=== PATIENT | male | born 1960 | race Caucasian/White ===

== ENCOUNTER 2023-03-01 10:42 | Outpatient (OUT) | payer BC, SELFPAY ==
[2023-03-01 11:55] LABS: Anion Gap 12.4; BUN Creatinine Ratio 15.1; Carbon Dioxide 29.6 mmol/L (21.0-32.0); Chloride 98 mmol/L (98-107); Estimated GFR (African America >60 (>=60); Estimated GFR (Non-African Ame >60 (>=60); Glucose 120 mg/dL (74-106); Sodium 136 mmol/L (136-145)
== END 2023-03-01 10:43 | disposition home or self-care (01) ==
LOC: LAB 10:47
PROVIDERS: PCP Physician Assistant; Visit Provider Nurse Practitioner Acute Care
DX: I50.22 Chronic systolic (congestive) heart failure (principal)
CPT/HCPCS: 36415; 80048

== ENCOUNTER 2023-05-29 14:00 | Outpatient (OUT) | payer BC, SELFPAY ==
--- NOTE | 2023-05-29 15:39 | CA_ITS ---
Patient Name: DARIUS DEGROOT MR#: [id number] : 1960 Exam Date: 05/29/2023 Ordering Doctor: DR CAMILA COBB M.D. ECHOCARDIOGRAM REPORT PROCEDURE: CA ECHO DOPPLER COMPLETE INDICATIONS: Syncope and collapse COMPARISON: None. DESCRIPTION: COMPLETE ECHOCARDIOGRAM Real-time transthoracic echocardiography with 2D, M-mode, spectral and color flow Doppler performed. QUALITY: Technical quality was good. LEFT VENTRICLE: Normal chamber size. Thickened septal wall. LV EF: Global left ventricular systolic function is lower normal limits; visually estimated ejection fraction is 50%. Abnormal septal motion; may be related to underlying bundle branch block. DIASTOLIC: Diastolic function is indeterminate. ATRIAL SEPTUM: Inadequately seen. LEFT ATRIUM: Mild dilatation. RIGHT ATRIUM: Mild dilatation. RIGHT VENTRICLE: Normal chamber size. Normal right ventricular systolic function. TRICUSPID VALVE: Normal mobility and thickness. No stenosis with trivial regurgitation. No evidence of pulmonary hypertension. RVSP 16mmHg MITRAL VALVE: Normal mobility and thickness. Mild mitral regurgitation. AORTIC VALVE: Normal trileaflet appearance. No visible sclerosis. Normal leaflet mobility. No evidence of aortic valve stenosis. No aortic regurgitation. AORTIC ROOT: Normal diameter and appearance. PULMONIC VALVE: Normal thickness and mobility. No stenosis. Trivial regurgitation. PERICARDIUM: No evidence of pericardial effusion. IVC: Collapses with inspirations. Normal size. CONCLUSION: 1. Global left ventricular systolic function is low normal limits; visually estimated ejection fraction is 50% 2. The right ventricle is normal in size and systolic function 3. Biatrial enlargement 4. Mild mitral regurgitation Adult Echocardiography Procedure Report Left Ventricle LVEDD (3.7 - 5.6 cm): 5.29 cm LVESD (2.2 - 4.0 cm): 3.78 cm LVIVS thickness (0.6 - 1.2 cm): 1.18 cm LVPW thickness (0.5 - 1.0 cm): 0.91 cm e': 0.08 m/s E - e': 8.10 LVOT Max Gradient: 3.19 mm[Hg] LVOT Area (cm2): 0.89 m/s Peak Velocity (LVOT): 0.89 m/s Mean Velocity (LVOT): 0.63 m/s LVOT Diameter 2.26 cm Left Ventricular Ejection Fraction: 48.66 % Left Atrium LA Volume Index (2D A2C): 35.00 ml/m2 Left Atrium Systolic Dimension: 3.59 cm Mitral Valve MV E to A Ratio: 0.79 Mitral Valve A-Wave Peak Velocity: 0.79 m/s Mitral Valve E-Wave Peak Velocity: 0.62 m/s Right Ventricle RV Internal Diastolic Dimension: 3.46 cm Aorta AO Root Diam: 3.59 cm Ascending Ao Diam: 3.44 cm Aortic Valve AoV Area (Peak Cooper): 2.67 cm2, 2.67 cm2 AoV Area (VTI): 2.90 cm2, 2.90 cm2 Peak Velocity(Antegrade Flow): 1.34 m/s Peak Gradient(Antegrade Flow): 7.18 mm[Hg] Mean Velocity(Antegrade Flow): 0.92 m/s Mean Gradient(Antegrade Flow): 3.97 mm[Hg] Velocity Time Integral: 29.04 cm Tricuspid Valve Peak Velocity (Regurgitant Flow): 1.82 m/s, 1.47 m/s, 1.57 m/s Pulmonic Valve Mean Gradient: 1.89 mm[Hg], 3.00 mm[Hg] Mean Velocity: 0.63 m/s, 0.81 m/s Peak Velocity: 1.07 m/s Peak Gradient: 3.97 mm[Hg], 5.32 mm[Hg] Right Atrium Right Atrium Systolic Pressure: 46.46 ml, 46.46 ml Dictated by: Reese Ovalle M.D. on 05/30/2023 at 09:43 Approved by: Reese Ovalle M.D. on 05/30/2023 at 09:48
== END 2023-05-29 14:01 | disposition home or self-care (01) ==
LOC: CARD 14:00
PROVIDERS: PCP Physician Assistant; Visit Provider Internal Medicine Interventional Cardiology
DX: R55 Syncope and collapse (principal)
CPT/HCPCS: 93306

== ENCOUNTER 2023-06-13 13:34 | Outpatient (OUT) | payer BC, SELFPAY ==
[2023-06-13 14:28] LABS: Basophils Absolute Auto 0.1 10^3/uL (0.0-0.1); Eosinophils Absolute Auto 0.3 10^3/uL (0.0-0.7); Eosinophils Percent Auto 4.6 % (0.9-7.0); Hematocrit 44.8 % (42.0-54.0); Hemoglobin 14.8 g/dL (14.0-18.0); Immature Granulocytes Abs Auto 0.01 10^3/uL (0.00-0.03); Immature Granulocytes Pct Auto 0.1 % (0.0-0.5); Lymphocytes Absolute Auto 1.7 10^3/uL (1.2-3.8); Lymphocytes Percent Auto 23.9 % (20.5-60.0); Mean Corpuscular Hemoglobin 32.7 pg (25.9-34.0); Mean Corpuscular Volume 98.9 fL (80.0-94.0); Mean Platelet Volume 8.7 fL (9.5-13.5); Monocytes Absolute Auto 0.7 10^3/uL (0.3-0.8); Monocytes Percent Auto 10.2 % (1.7-12.0); Neutrophils Absolute Auto 4.2 10^3/uL (1.4-6.5); Neutrophils Percent Auto 60.2 % (43.0-75.0); Platelet Count 297 10^3/uL (150-450); Red Blood Count 4.53 10^6/uL (4.70-6.10); Red Cell Distribution Width 11.7 % (11.0-15.0)
[2023-06-13 15:52] LABS: Alanine Aminotransferase 30 U/L (16-63); Albumin Globulin Ratio 1.4; Albumin Level 4.6 g/dL (3.4-5.0); Alkaline Phosphatase 50 U/L (46-116); Anion Gap 13.4; Aspartate Amino Transferase 23 U/L (15-37); BUN Creatinine Ratio 14.8; Bilirubin Total 0.4 mg/dL (0.2-1.0); Calcium 9.2 mg/dL (8.5-10.1); Carbon Dioxide 29.9 mmol/L (21.0-32.0); Chloride 100 mmol/L (98-107); Estimated GFR (African America >60 (>=60); Estimated GFR (Non-African Ame >60 (>=60); Globulin 3.3 g/dL; Glucose 95 mg/dL (74-106); Potassium 4.3 mmol/L (3.5-5.1); Sodium 139 mmol/L (136-145); Total Protein 7.9 g/dL (6.4-8.2)
== END 2023-06-13 13:35 | disposition home or self-care (01) ==
LOC: LAB 13:36
PROVIDERS: PCP Physician Assistant; Visit Provider Internal Medicine Interventional Cardiology
DX: R55 Syncope and collapse (principal)
CPT/HCPCS: 36415; 80053; 85025

== ENCOUNTER 2024-01-17 10:47 | Outpatient (OUT) | payer BC, SELFPAY ==
[2024-01-17 11:03] LABS: Basophils Absolute Auto 0.1 10^3/uL (0.0-0.1); Basophils Percent Auto 0.9 % (0.2-2.0); Eosinophils Absolute Auto 0.3 10^3/uL (0.0-0.7); Eosinophils Percent Auto 4.5 % (0.9-7.0); Hematocrit 43.4 % (42.0-54.0); Hemoglobin 14.9 g/dL (14.0-18.0); Immature Granulocytes Abs Auto 0.02 10^3/uL (0.00-0.03); Immature Granulocytes Pct Auto 0.4 % (0.0-0.5); Lymphocytes Absolute Auto 1.8 10^3/uL (1.2-3.8); Lymphocytes Percent Auto 32.1 % (20.5-60.0); Mean Corpuscular HGB Conc 34.3 g/dL (29.9-35.2); Mean Corpuscular Hemoglobin 32.5 pg (25.9-34.0); Mean Corpuscular Volume 94.8 fL (80.0-94.0); Monocytes Absolute Auto 0.7 10^3/uL (0.3-0.8); Monocytes Percent Auto 12.5 % (1.7-12.0); Neutrophils Absolute Auto 2.8 10^3/uL (1.4-6.5); Neutrophils Percent Auto 49.6 % (43.0-75.0); Platelet Count 250 10^3/uL (150-450); Red Blood Count 4.58 10^6/uL (4.70-6.10); Red Cell Distribution Width 11.1 % (11.0-15.0); White Blood Count 5.6 10^3/uL (4.0-11.0)
--- OUTSIDE RECORDS SUMMARY | 2024-01-17 11:04 | XMS_ITS | CCD ---
Author Organization [facility] Care Team Providers Care Rd Manager Name Role Phone PHYSICIAN, DEFAULT Admitting Unavailable PHYSICIAN, DEFAULT Attending Unavailable PHYSICIAN, DEFAULT Admitting Unavailable PHYSICIAN, DEFAULT Attending Unavailable UNKNOWN, PROVIDER Admitting Unavailable UNKNOWN, PROVIDER Attending Unavailable MARIA D FLORES Referring Unavailable MARIA D FLORES Primary Care Unavailable PHYSICIAN, DEFAULT Admitting Unavailable PHYSICIAN, DEFAULT Attending Unavailable Maria D Petersen Primary Care Provider Maria D Petersen Primary Care Provider Maria D PETERSEN Primary Care Physician CAMILA Petersen Primary Care Provider DO Barber Snow Jr Attending Provider Barber Snow Jr Attending Unavailable Barber Snow Jr Admitting Unavailable Maria D Petersen Primary Care Unavailable NORA OLIVA Attending Unavailable MARIA D PETERSEN Primary Care Unavailable NORA OLIVA Admitting Unavailable MARIA D PETERSEN Primary Care Unavailable NORA OLIVA Admitting Unavailable NORA OLIVA Consulting Unavailable NORA OLIVA Attending Unavailable Maria D Petersen PA-C Primary Care Provider Francois PAYAN Attending Unavailable Rosaura Moseley Referring Unavailable Francois PAYAN Attending Unavailable Maria D PETERSEN Attending Unavailable Maria D PETERSEN Referring Unavailable Maria D PETERSEN Admitting Unavailable KOSTA RAVI Attending Unavailable CAMILA COBB Attending Unavailable CAMILA COBB Attending Unavailable KOSTA RAVI Attending Unavailable ARTURO TEJADA Referring Unavailable ARTURO TEJADA [facility] ARTURO TEJADA Attending Unavailable [facility] Unavailabl e [facility] Unavailabl e BEATRIZ FIGUEROA Attending Unavailable BEATRIZ FIGUEROA Referring Unavailable KARIME V, SHEREE Referring Unavailable [facility] Unavailabl e KARIME V, SHEREE Referring Un[facility] KARMIE V, SHEREE Referring Unavailable KARIME V, SHEREE Admitting Unavailable KARIME V, SHEREE Attending Unavailable [facility] Unavailabl e KARIME V, SHEREE Referring Unavailable KARIME V, SHEREE Admitting Unavailable KARIME V, SHEREE Attending Unavailable [facility] Unavailabl e KARIME V, SHEREE Referring Unavailable [facility] Unavailabl e KARIME V, SHEREE Referring Unavailable [facility] Unavailabl e KARIME V, SHEREE Attending Unavailable [facility] Unavailabl e BARBER SNOW Attending Unavailable BARBER SNOW Referring Unavailable [facility] Unavailabl e NICOLE RYAN Attending Unavaila ble [facility] Unavailabl e KARIME V, SHEREE Attending Unavailable [facility] UnavailARTURO Zuniga Attending Unavailable NICOLAMARIA D Attending Unavailable ARTURO DODGE Attending Unavailable Allergies Allergy Classification Reported Allergen(s) Allergy Type Date of Onset Reaction(s) Facility (2 sources) atorvastatin; Translations: [ATORVASTATIN] Drug Allergy 06-14-2022 Unknown [facility] Repository Medications Current Medications Medication Drug Class(es) Dates Sig (Normalized) Sig (Original) benoxinate hydrochloride 4 mg/ml / fluorescein sodium 3 mg/ml ophthalmic solution (2 sources) Diagnostic Dye Start: 06-01-2023 End: 06-02-2023 fluorescein-benoxi jhon 0.3-0.4 % 1 Drop (FLURESS) Start: 12-15-2022 End: 12-15-2022 fluorescein-benoxinate 0.25- 0.4 % 1 Drop (FLURESS) diazePAM 5 mg oral tablet (1 source) Benzodiazepine Start: 07-25-2022 End: 08-24-2022 diazePAM (VALIUM) 5 mg tablet Indications: Chronic right-sided low back pain with right-sided sciatica , Radiculopathy of lumbar region Take 1 tablet 1 hour before test. Can take 1 tablet 30 minutes before test if necessary. If still not comfortable then can take a half tablet immediately prior to or during the test. 3 tablet 0 07/25/2022 08/24/2022 Active Comment on above: Take 1 tablet 1 hour before test. Can take 1 tablet 30 minutes before test if necessary. If still not comfortable then can take a half tablet immediately prior to or during the test. Furosemide (19 sources) Loop Diuretic Start: 03-13-2023 FUROSEMIDE 20 MG TABS FUROSEMIDE 20 MG TABS Start Date: 03/13/23 Status: Ordered Start: 03-01-2017 furosemide (LA SIX ORAL) Take 20 mg by mouth. 0 03/01/2017 Active Comment on above: Take 20 mg by mouth. omeprazole 20 mg oral tablet (20 sources) Proton Pump Inhibitor Start: 03-01-2017 End: 12-29-2022 take 20 mg by mouth twice daily Prilosec 20 mg, Oral, BID, Refills(s) 0, Control of stomach acid Start Date: 03/01/17 Status: Ordered take 2 capsules by mouth once da sanjana omeprazole (PRILOSEC) 20 mg capsule omeprazole 20 mg capsule,delayed release TAKE 2 CAPSULES BY MOUTH EVERY DAY 0 Active Comment on above: Take 20 mg by mouth twice daily. omeprazole 20 mg cap jay,delayed release TAKE 2 CAPSULES BY MOUTH EVERY DAY phenylephrine hydrochloride 25 mg/ml ophthalmic solution (2 sources) alpha-1 Adrenergic Agonist Start: 06-01-2023 End: 06-02-2023 PHENYLephrine 2.5 % 1 Drop (AK-DILATE, CODEY-SYNEPHRINE) Start: 12-15-2022 End: 12-15-2022 PHENYLephrine 2.5 % 1 Drop ( AK-DILATE, CODEY-SYNEPHRINE) rosuvastatin 20 mg oral capsule (18 sources) HMG-CoA Reductase Inhibitor Start: 03-01-2017 take 20 mg by mouth once daily rosuvastatin 20 mg, Oral, Daily, Refills(s) 0, High cholesterol Start Date: 03/01/17 Status: Ordered take 1 tablet by mouth once filipe y rosuvastatin (CRESTOR) 40 mg tablet Take 40 mg by mouth once daily. 0 Active Comment on above: Take 40 mg by mouth once daily. spironolactone 25 mg oral tablet (5 sources) Aldosterone Antagonist Start: 03-13-2023 spironolactone 25 mg Tab Refills(s) 0 Start Date: 03/13/23 Status: Ordered Start: 01-30-2023 spironolactone (ALDACTONE) 12.5 mg tab tropicamide 10 mg/ml ophthalmic solution (2 sources) Anticholinergic Start: 06-01-2023 End: 06-02-2023 tropicamide 1 % 1 Drop (MYDRIACYL) Start: 12-15-2022 End: 12-15-2022 tropicamide 1 % 1 Drop (MYDR IACYL) Completed/Discontinued Medications Medication Drug Class(es) Dates Sig (Normalized) Sig (Original) acetaminophen 325 mg / HYDROcodone bitartrate 5 mg oral tablet (9 sources) Opioid Agonist End: 12-29-2022 take 1 tablet by mouth every six hours as needed HYDROcodone-acetam inophen (NORCO) 5-325 mg per tablet Take 1 tablet by mouth every 6 hours as needed. 0 12/29/2022 Discontinued (Course of therapy completed) Comment on above: Take 1 tablet by ivan th every 6 hours as needed. aspirin 81 mg delayed release oral tablet (9 sources) Platelet Aggregation Inhibitor, Nonsteroidal Anti-inflammatory Drug Start: 03-01-2017 take 1 tablet by mouth once daily aspirin, enteric coated (ASPIRIN, ENTERIC COATED) 81 mg EC tablet Take 81 mg by mouth once daily. 0 03/01/2017 Active Start: 03-01-2017 take 81 mg by mouth once daily aspirin 81 mg, Oral, Daily, Refills(s) 0, Blood Thinner Start Date: 03/01/17 Status: Ordered Comment on above: Take 81 mg by mouth once daily. aspirin 1000 mg / caffeine 150 mg oral powder (9 sources) Platelet Aggregation Inhibitor, Nonsteroidal Anti-inflammatory Drug, Central Nervous System Stimulant, Methylxanthine Start: 017 End: 023 aspirin-caffeine 1,000-150 mg pwpk Take 81 mg by mouth. 0 03/01/2017 12/29/2022 Discontinued (Course of therapy completed) Comment on above: Take 81 mg by mouth. cyclobenzaprine hydrochloride 10 mg oral tablet (9 sources) Muscle Relaxant End: take 1 tablet by mouth every eight hours as needed cyclobenzaprine (FLEXERIL) 10 mg tablet Take 10 mg by mouth three times daily as needed. 0 12/29/2022 Discontinued (Course of therapy completed) Comment on above: Take 10 mg by mouth three times daily as needed. 24 hr desvenlafaxine succinate 50 mg extended release oral tablet (9 sources) Serotonin and Norepinephrine Reuptake Inhibitor End: take 1 tablet by mouth once daily, then take 1 tablet by mouth every twenty-four hours desvenlafaxine ER (PRISTIQ) 50 mg 24 hr tablet Take 50 mg by mouth once daily. 0 12/29/2022 Discontinued (Course of therapy completed) Comment on above: Take 50 mg by mouth once daily. dexamethasone 0.001 mg/mg / neomycin 0.0035 mg/mg / polymyxin b 10 unt/mg ophthalmic ointment (1 source) Aminoglycoside Antibacterial, Polymyxin-class Antibacterial, Corticosteroid Start: 024 neomycin/polymyxin b/dexametha(MAXITROL 3.5 MG/G-10,000 UNIT/G-0.1 % EYE OINTMENT) Apply to lids/lashes Both eyes at bedtime until gone 3.5 g 0 10/25/2023 Active Comment on above: Apply to lids/lashes Both eyes at bedtime until gone ezetimibe 10 mg oral tablet (9 sources) Dietary Cholesterol Absorption Inhibitor End: take 1 tablet by mouth once daily ezetimibe (ZETIA) 10 mg tablet Take 10 mg by mouth once daily. 0 12/29/2022 Discontinued (Course of therapy completed) Comment on above: Take 10 mg by mouth once daily. fluticasone propionate 0.05 mg/actuat metered dose nasal spray (11 sources) Corticosteroid fluticasone (MEÑO NASE) 50 mcg/actuation nasal spray Use 1 [place] in each nostril as needed. 0 Active Comment on above: Use 1 [place] in each nostril as needed. gabapentin 300 mg oral capsule (8 sources) Anti-epileptic Agent Start: 022 End: 023 gabapentin (NEURONTIN) 300 mg capsule Indications: Acute right-sided low back pain with right-sided sciatica , Lumbosacral radiculitis Take one capsule at bedtime for 3-5 days, then one in the morning and one at night for 3-5 days. Then increase to one capsule three times daily if tolerating well. 90 capsule 1 05/18/2022 12/29/2022 Discontinued (Course of therapy completed) Comment on above: Take one capsule at bedtime for 3-5 days, then one in the morning and one at night for 3-5 days. Then increase to one capsule three times daily if tolerating well. gemfibrozil 600 mg oral tablet (18 sources) Peroxisome Proliferator Receptor alpha Agonist Start: 017 gemfibrozil (LOPID) 600 mg tablet Take 600 mg by mouth. 0 03/01/2017 Active Comment on above: Take 600 mg by mouth . ketorolac tromethamine 5 mg/ml ophthalmic solution (4 sources) Nonsteroidal Anti-inflammatory Drug, Cyclooxygenase Inhibitor Start: 023 keTORolac (ACULAR) 0.5 % ophthalmic solution USE DIRECTED BY PHYSICIAN, IN OPERATIVE EYE, BEGINNING ONE DAY AFTER SURGERY 5 mL 0 03/07/2023 Active Start: 01-13-2023 keTORolac (ACU LAR) 0.5 % ophthalmic solution 1 drop in the operative eye 4 times daily for 10 days after surgery, then taper as directed. 5 mL 0 01/13/2023 Active Start: 01-10-2023 End: 01-13-2023 keTORolac (ACULAR) 0.5 % oph thalmic solution USE DIRECTED BY PHYSICIAN, IN OPERATIVE EYE, BEGINNING ONE DAY AFTER SURGERY 5 mL 0 01/10/2023 01/13/2023 Discontinued Comment on above: 1 drop in the operat shanti eye 4 times daily for 10 days after surgery, then taper as directed. USE DIRECTED BY Chaz DE LA CRUZ, IN OPERATIVE EYE, BEGINNING ONE DAY AFTER SURGERY lisinopril 10 mg oral tablet (18 sources) Angiotensin Converting Enzyme Inhibitor Start: 03-01-20 lisinopril (ZESTRIL, PRINIVIL) 10 mg tablet Take 10 mg by mouth. 0 03/01/2017 Active Comment on above: Take 10 mg by mouth. methylPREDNISolone (9 sources) Corticosteroid Start: 05-18-20 End: 12-30-19 methylPREDNISolone (MEDROL DOSE-PACK) 4 mg Dose-Pack Indications: Acute right-sided low back pain with right-sided sciatica , Lumbosacral radiculitis As Instructed per package 21 tablet 0 05/18/2022 12/29/2022 Discontinued (Course of therapy completed) Start: 05-18-2022 methylPREDNISo lone (MEDROL DOSE-PACK) 4 mg Dose-Pack Indications: Acute right-sided low back pain with right-sided sciatica , Lumbosacral radiculitis As Instructed per package 21 tablet 0 05/18/2022 Active Comment on above: As Instructed per selwyn fuentes 24 hr metoprolol succinate 50 mg extended release oral tablet (18 sources) beta-Adrenergic Franc Start: 03-01-2017 metoprolol succinate ER (TOPROL XL) 50 mg 24 hr tablet q 24 HR. 0 03/01/2017 Active Start: 03-01-2017 take 1 tablet by [facility] once daily Metoprolol succinate 50 mg ER Tablet 50 mg, Oral, Daily, Refills(s) 0, High blood pressure Start Date: 03/01/17 Status: Ordered Comment on above: q 24 HR. prednisoLONE acetate 10 mg/ml ophthalmic suspension (4 sources) Corticosteroid Start: 03-07-2023 prednisoLONE acetate (PRED FORTE) 1 % ophthalmic suspension USE DIRECTED BY PHYSICIAN, IN OPERATIVE EYE, BEGINNING ONE DAY AFTER SURGERY 5 mL 0 03/07/2023 Active Start: 01-13-2023 prednisoLONE a cetate (PRED FORTE) 1 % ophthalmic suspension 1 drop in the operative eye 4 times daily for 10 days after surgery, then taper as directed. 5 mL 0 01/13/2023 Active Start: 01-10-2023 End: 01-13-2023 prednisoLONE acetate (PRED F ORTE) 1 % ophthalmic suspension USE DIRECTED BY PHYSICIAN, IN OPERATIVE EYE, BEGINNING ONE DAY AFTER SURGERY 5 mL 0 01/10/2023 01/13/2023 Discontinued Comment on above: 1 drop in the operat shanti eye 4 times daily for 10 days after surgery, then taper as directed. USE DIRECTED BY Chaz DE LA CRUZ, IN OPERATIVE EYE, BEGINNING ONE DAY AFTER SURGERY Problems Active Problems Problem Classification Problem Date Documented Date Episodic/Chronic Anxiety disorders (2 sources) Anxiety 09-27-2013 Chronic Asthma (17 sources) Asthma; Translations: [Unspecified asthma, uncomplicated] 11-07-2014 Chronic Calculus of urinary tract (16 sources) Kidney stone; Translations: [Calculus of kidney] 11-07-2014 Episodic Cataract (7 sources) Bilateral senile combined form cataracts of eyes; Translations: [Combined forms of age-related cataract, bilateral] Onset: 3 Chronic Congestive heart failure; nonhypertensive (15 sources) Heart failure; Translations: [Chronic systolic (congestive) heart failure] Onset: 9 Chronic Coronary atherosclerosis and other heart disease (18 sources) 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; Translations: [Generalized ischemic myocardial dysfunction] Onset: 9 Chronic Coronary atherosclerosis and other heart disease (2 sources) Presence of coronary angioplasty implant and graft; Translations: [Presence of coronary angioplasty implant and graft] Onset: 3 Episodic Disorders of lipid metabolism (20 sources) Hyperlipidemia; Translations: [Hyperlipidemia, unspecified] Onset: 4 03-18-2014 Chronic Diverticulosis and diverticulitis (16 sources) Diverticular disease; Translations: [Diverticulosis of intestine, part unspecified, without perforation or abscess without bleeding] 11-07-2014 Chronic Esophageal disorders (1 source) Gastroesophageal reflux disease 03-13-2023 Chronic Essential hypertension (11 sources) Essential hypertension; Translations: [Essential (primary) hypertension] Onset: 3 Chronic Fracture of lower limb (16 sources) Fracture of ankle; Translations: [Other fracture of unspecified lower leg, initial encounter for closed fracture] 11-07-2014 Episodic Hypertension with complications and secondary hypertension (1 source) Hypertensive heart disease with heart failure; Translations: [HYPERTENSIVE HEART DISEASE WITH HEART FAILURE] Onset: 9 Chronic Inflammation; infection of eye (except that caused by tuberculosis or sexually transmitteddisease) (4 sources) Keratoconjunctivitis sicca; Translations: [Keratoconjunctivitis sicca, not specified as Sjogren's, bilateral] Onset: 3 04-20-2023 Chronic Osteoarthritis (16 sources) Osteoarthritis; Translations: [Unspecified osteoarthritis, unspecified site] 11-07-2014 Chronic Other diseases of kidney and ureters (1 source) Acquired renal cyst without neoplastic change; Translations: [Cyst of kidney, acquired] Onset: 3 Episodic Other diseases of kidney and ureters (1 source) Cyst of kidney 03-13-2023 Episodic Other eye disorders (1 source) H/O: L cataract extraction; Translations: [Cataract extraction status, left eye] 03-08-2023 Episodic Other eye disorders (1 source) Meibomian gland dysfunction of bilateral eyes; Translations: [Meibomian gland dysfunction right eye, upper and lower eyelids] 10-25-2023 Episodic Other eye disorders (1 source) Pinguecula of left eye; Translations: [Pinguecula, left eye] 10-25-2023 Episodic Other eye disorders (1 source) Pterygium of right eye; Translations: [Unspecified pterygium of right eye] 10-25-2023 Episodic Other eye disorders (1 source) History of zrulkjs-rsdvulgc-kvflhy (YAG) laser capsulotomy of lens; Translations: [Cataract extraction status, left eye] 10-25-2023 Episodic Other liver diseases (16 sources) Elevated liver enzymes level; Translations: [Abnormal levels of other serum enzymes] 11-07-2014 Episodic Other nervous system disorders (1 source) Other chronic pain; Translations: [Chronic right-sided low back pain with right-sided sciatica] Onset: 3 Chronic Other screening for suspected conditions (not mental disorders or infectious disease) (2 sources) Abnormal findings on diagnostic imaging of heart and coronary circulation; Translations: [Encounter for screening for malignant neoplasm of prostate] Onset: 9 Episodic Residual codes; unclassified (17 sources) Obstructive sleep apnea syndrome; Translations: [Obstructive sleep apnea (adult) (pediatric)] 07-12-2021 Chronic Syncope (2 sources) Syncope and collapse; Translations: [Syncope and collapse] Onset: 3 Episodic Unclassified (1 source) DX Onset: 9 Unclassified (1 source) Patient encounter status 03-13-2023 Past or Other Problems Problem Classification Problem Date Documented Da te Episodic/Chronic Blindness and vision defects (4 sources) Bilateral myopia of eyes; Translations: [Myopia, bilateral] Onset: 03-08-2023 Episodic Inflammation; infection of eye (except that caused by tuberculosis or sexually transmitteddisease) (3 sources) Superficial keratitis of right eye; Translations: [Unspecified superficial keratitis, right eye] Onset: 04-12-2023 04-12-2023 Episodic Other fractures (16 sources) Fracture of transverse process of lumbar vertebra; Translations: [Unspecified fracture of unspecified lumbar vertebra, initial encounter for closed fracture] Onset: 11-07-2014 11-07-2014 Episodic Spondylosis; intervertebral disc disorders; other back problems (20 sources) Acute back pain with sciatica; Translations: [Lumbago with sciatica, right side] Onset: 09-16-2022 Episodic Superficial injury; contusion (1 source) Injury of conjunctiva and corneal abrasion without foreign body, right eye, initial encounter; Translations: [Abrasion of right cornea, initial encounter] Onset: 04-12-2023 Episodic Unclassified (2 sources) Cholesterol 11-16-2010 Results Test Name Value Interpretation Reference Range Facility Office Visiton 06-27-2023 Follow-up visit [id number] Jb Thacker 1960 [facility] Provider Department Center 06/27/2023 CAMILA KANG UGO [facility] Family History Problem Relation Age of Onset Leukemia Mother Diabetes Father Heart attack Father Family Status - Relation Status Age at Mother Father Level of Service:96302 [place] OFFICE/OUTPATIENT ESTABLISHED LOW MDM 20-29 MIN Normal [facility] 36on 05-23-2023 37 called back and she was made aware to stop lisinopril. Normal [facility] Office Visiton 05-19-2023 Follow-up visit [id number] Jb Thacker 1960 [facility] Provider Department Center 05/19/2023 CAMILA KANG UGO [facility] Family History Problem Relation Age of Onset Leukemia Mother Diabetes Father Heart attack Father Family Status - Relation Status Age at Mother Father Level of Service:12784 [place] OFFICE/OUTPATIENT ESTABLISHED MOD MDM 30-39 MIN Normal [facility] Lab Reportson 03-15-2023 Lab Reports [id number]: 127 Normal [facility] Lab Reportson 03-14-2023 Lab Reports [id number]: 127 Normal [facility] Lab Reports [id number]: 127 Normal [facility] Physician Referralon 023 Physician Referral [id number] [id number]: 127 Normal [facility] RAD - MRI Reporton 3 RAD - MRI Report [id number]: 127 Normal [facility] Ambulatory Visit Summaryon 0 03-13-2023 Ambulatory Visit Summary DARIUS THACKER :1960 Visit Date:03/13/2023 Ambulatory Visit Instructions Your Diagnosis Renal cyst Prostate cancer screening Tests Performed Urnls Dip Stick Auto w/o Microscopy POC 15992 US Renal -- Results Pending -- Please visit your patient portal for your results or contact your primary care physician. Your Care Team Attending Physician - ORA MILLER, Francois George Primary Care Physician - Maria D PETERSEN PA-C Referring Physician - Rosaura Moseley MD This Is Your Medications List Contact prescribing physician if questions or concerns Misc Prescription (FUROSEMIDE 20 MG TABS) aspirin furosemide (Lasix) gemfibrozil lisinopril metoprolol (Metoprolol succinate 50 mg ER Tablet) omeprazole (Prilosec) rosuvastatin spironolactone (spironolactone 25 mg Tab) Procedures Performed Back, Cataracts, Insertion of coronary artery stent. Discharge Vitals Height 178 cm Height 70 in Weight 82.5 kg Weight 181.5 lb BMI 26.04 What to do next You Need to Schedule the Following Appointments Follow Up with ORA MILLER, Francois George, RAQUEL When: In 1 year Comments: Renal US Where: [facility] [address] , [place] [phone] Medications What How Much When Instructions Unchanged aspirin 81 Milligram By Mouth Every day Contact prescribing physician if questions or concerns Unchanged furosemide (Lasix) 20 Milligram By Mouth Every other day Contact prescribing physician if questions or concerns Unchanged gemfibrozil 600 Milligram By Mouth 2 times a day Contact prescribing physician if questions or concerns Unchanged lisinopril 10 Milligram By Mouth Every day Contact prescribing physician if questions or concerns Unchanged metoprolol (Metoprolol succinate 50 mg ER Tablet) 50 Milligram By Mouth Every day Contact prescribing physician if questions or concerns Unchanged Misc Prescription (FUROSEMIDE 20 MG TABS) 0 Contact prescribing physician if questions or concerns Unchanged omeprazole (Prilosec) 20 Milligram By Mouth 2 times a day Contact prescribing physician if questions or concerns Unchanged rosuvastatin 20 Milligram By Mouth Every day Contact prescribing physician if questions or concerns Unchanged spironolactone (spironolactone 25 mg Tab) Contact prescribing physician if questions or concerns Test Results Urnls Dip Stick Auto w/o Microscopy POC 46662 (03/13/2023) Bilirubin Urine Dipstick - Negative Blood Urine Dipstick - Negative Glucose Urine Dipstick - Negative Ketones Urine Dipstick - Negative Leukocytes Urine Dipstick - Negative Nitrite Urine Dipstick - Negative Protein Urine Dipstick - Negative Specific [place]y Urine Dipstick - 1.015 Urine Appearance Urine Dipstick - Clear Urine Color Urine Dipstick - Yellow Urobilinogen Urine Dipstick - Normal 0.2-1 EU/dl pH Urine Dipstick - 7.5 Allergies No Known Allergies Problems Ongoing - Any problem that you are currently receiving treatment for. GERD (gastroesophageal reflux disease) Hypercholesterolemia Hypertension Prostate cancer screening Renal cyst Historical - Any problem that you are no longer receiving treatment for. Anxiety Cholesterol Education Materials Renal Mass A renal mass is an abnormal growth in the kidney. It may be found while performing an MRI, CT scan, or ultrasound to evaluate other problems of the abdomen. A renal mass that is cancerous (malignant) may grow or spread quickly. Others are not cancerous (benign). Renal masses include: ? Tumors. These may be malignant or benign. ? The most common type of kidney cancer in adults is renal cell carcinoma. In children, the most common type of kidney cancer is Wilms tumor. ? The most common benign tumors of the kidney include renal adenomas, oncocytomas, and angiomyolipoma (AML). ? Cysts. These are fluid-filled sacs that form on or in the kidney. What are the causes? Certain types of cancers, infections, or injuries can cause a renal mass. It is not always known what causes a cyst to develop in or on the kidney. What are the signs or symptoms? Often, a renal mass does not cause any signs or symptoms; most kidney cysts do not cause symptoms. How is this diagnosed? Your health care provider may recommend tests to diagnose the cause of your renal mass. These tests may be done if a renal mass is found: ? Physical exam. ? Blood tests. ? Urine tests. ? Imaging tests, such as ultrasound, CT scan, or MRI. ? Biopsy. This is a small sample that is removed from the renal mass and tested in a lab. The exact tests and how often they are done will depend on: ? The size and appearance of the renal mass. ? Risk factors or medical conditions that increase your risk for problems. ? Any symptoms associated with the renal mass, or concerns that you have about it. Tests and physical exams may be done once, or they may be do (more content not included)... [facility] Patient Educationon 03-13-20 23 Patient Education Urology Renal Mass A renal mass is an abnormal growth in the kidney. It may be found while performing an MRI, CT scan, or ultrasound to evaluate other problems of the abdomen. A renal mass that is cancerous (malignant) may grow or spread quickly. Others are not cancerous (benign). Renal masses include: ? Tumors. These may be malignant or benign. ? The most common type of kidney cancer in adults is renal cell carcinoma. In children, the most common type of kidney cancer is Wilms tumor. ? The most common benign tumors of the kidney include renal adenomas, oncocytomas, and angiomyolipoma (AML). ? Cysts. These are fluid-filled sacs that form on or in the kidney. What are the causes? Certain types of cancers, infections, or injuries can cause a renal mass. It is not always known what causes a cyst to develop in or on the kidney. What are the signs or symptoms? Often, a renal mass does not cause any signs or symptoms; most kidney cysts do not cause symptoms. How is this diagnosed? Your health care provider may recommend tests to diagnose the cause of your renal mass. These tests may be done if a renal mass is found: ? Physical exam. ? Blood tests. ? Urine tests. ? Imaging tests, such as ultrasound, CT scan, or MRI. ? Biopsy. This is a small sample that is removed from the renal mass and tested in a lab. The exact tests and how often they are done will depend on: ? The size and appearance of the renal mass. ? Risk factors or medical conditions that increase your risk for problems. ? Any symptoms associated with the renal mass, or concerns that you have about it. Tests and physical exams may be done once, or they may be done regularly for a period of time. Tests and exams that are done regularly will help monitor whether the mass is growing and beginning to cause problems. How is this treated? Treatment is not always needed for this condition. Your health care provider may recommend careful monitoring and regular tests and exams. Treatment will depend on the cause of the mass. Treatment for a cancerous renal mass may include surgical removal, chemotherapy, radiation, or immunotherapy. Most kidney cysts do not need to be treated. Follow these instructions at home: What you need to do at home will depend on the cause of the mass. Follow the instructions that your health care provider gives to you. In general: ? Take gntz-ycj-roqtjzc and prescription medicines only as told by your health care provider. ? If you were prescribed an antibiotic medicine, take it as told by your health care provider. Do not stop taking the antibiotic even if you start to feel better. ? Follow any restrictions that are given to you by your health care provider. ? Keep all follow-up visits. This is important. ? You may need to see your health care provider once or twice a year to have CT scans and ultrasounds. These tests will show if your renal mass has changed or grown. Contact a health care provider if you: ? Have pain in your side or back (flank pain). ? Have a fever. ? Feel full soon after eating. ? Have pain or swelling in the abdomen. ? Lose weight. Get help right away if: ? Your pain gets worse. ? There is blood in your urine. ? You cannot urinate. ? You have chest pain. ? You have trouble breathing. These symptoms may represent a serious problem that is an emergency. Do not wait to see if the symptoms will go away. Get medical help right away. Call your local emergency services (911 in the [place] Summary ? A renal mass is an abnormal growth in the kidney. It may be cancerous (malignant) and grow or spread quickly, or it may not be cancerous (benign). Renal masses often do not have any signs or symptoms. ? Renal masses may be found while performing an MRI, CT scan, or ultrasound for other problems of the abdomen. ? Your health care provider may recommend that you have tests to diagnose the cause of your renal mass. These may include a physical exam, blood tests, urine tests, imaging, or a biopsy. ? Treatment is not always needed for this condition. Careful monitoring may be recommended. This information is not intended to replace advice given to you by your health care provider. Make sure you discuss any questions you have with your health care provider. Document Revised: 12/28/2020 Document Reviewed: 12/28/2020 [employer] Patient Education ? 2022 [employer]. [facility] Reminderson 03-13-2023 Reminders - From: Sunshine Treviño To: [place] - Recalls Payan; Sent: 03/13/2023 16:04:39 EDT Show up: 01/15/2024 16:04:00 EDT Subject: Renal US Due Date/Time: 02/05/2024 16:04:00 EDT Reminder/Recall [place] [facility] [place] prior to 02/2024 appt. Please call to sched patient. [facility] Orders Onlyon 03-10-2023 Orders Only [id number] Jb Thacker 1960 [facility] Provider Department Center 03/10/2023 [id number] [facility] Family History Problem Relation Age of Onset Leukemia Mother Diabetes Father Heart attack Father Family Status - Relation Status Age at Mother Father [facility] ANES POSTPROC EVALon 023 ANES POSTPROC EVAL HNO ID: [id number] Author: Johnathan Melton II, DO Service: Anesthesiology Author Type: Anesthesiologist Type: Anesthesia Postprocedure Evaluation Filed: 03/08/2023 1:09 PM Note Text: POST ANESTHESIA EVALUATION NOTE : 1960 Procedure Summary Date: 03/08/23 Room / Location: [place] [id number] / [facility] Anesthesia Start: 1200 Anesthesia Stop: 1221 Procedures: PHACOEMULSIFICATION CATARACT IMPLANT INTRAOCULAR LENS W/O ENDOSCOPIC CYCLOPHOTOCOAGULATION (Right: Eye) OPHTHALMIC BIOMETRY BY PARTIAL COHERENCE INTERFEROMETRY W/INTRAOCULAR LENS POWER CALCULATION (Right: Eye) Diagnosis: Combined forms of age-related cataract of both eyes Myopia with astigmatism and presbyopia, bilateral (Combined forms of age-related cataract of both eyes [H25.813]) (Myopia with astigmatism and presbyopia, bilateral [H52.13, H52.203, H52.4]) Surgeons: Sheree Schaffer V, MD Responsible Provider: Johnathan Melton II, DO Anesthesia Type: MAC ASA Status: 3 Anesthesia Type: MAC Last Vitals Vitals Value Taken Time BP 115/80 03/08/23 1230 Temp 36.6 ?C (97.9 ?F) 03/08/23 1220 Pulse 67 03/08/23 1230 Resp 16 03/08/23 1230 SpO2 96 % 03/08/23 1230 Post Anesthesia Patient Status Patient Evaluation: PACU. PACU/ICU Patient Condition: stable. Neurological Status: aware and responsive. Pulmonary Status: breathing comfortably on room air Airway Control: returned to baseline unsupported. Cardiovascular Status: stable. Pain Management: clinically adequate Postoperative Hydration: acceptable. Intraoperative Events: no significant anesthesia events Post Operative Nausea/Vomiting Status: no significant post operative nausea or vomiting Recommendation: continue current plan of care. Anesthesia Observations No Documentation SIGNATURE: Johnathan Melton II, DO PATIENT NAME: Darius Thacker DATE: March 08, 2023 TIME: 1:09 PM CSN: [id number] [facility] ANES PRE-OPon 03-08-2023 ANES PRE-OP HNO ID: [id number] Author: Johnathan Melton II, DO Service: Anesthesiology Author Type: Anesthesiologist Type: Anesthesia Preprocedure Evaluation Filed: 03/08/2023 11:31 AM Note Text: ANESTHESIOLOGY DAY OF SURGERY NOTE : 1960 Procedure Information Date/Time: 03/08/23 1200 Procedures: PHACOEMULSIFICATION CATARACT IMPLANT INTRAOCULAR LENS W/O ENDOSCOPIC CYCLOPHOTOCOAGULATION (Right: Eye) OPHTHALMIC BIOMETRY BY PARTIAL COHERENCE INTERFEROMETRY W/INTRAOCULAR LENS POWER CALCULATION (Right: Eye) Location: [address] Surgeons: Sheree Schaffer V, MD Estimated body mass index is 25.83 kg/m? as calculated from the following: Height as of 03/01/23: 177.8 cm (5' 10 ). Weight as of 03/01/23: 81.6 kg (180 lb). Most recent hematocrit and potassium results: No results found for this basename: HCT,HEMATOCRIT,K,POTASSI UM Relevant Problems ANESTHESIA (+) JOSE (obstructive sleep apnea) CARDIO (+) Essential (primary) hypertension -RENAL (+) Kidney stones PULMONARY (+) Asthma (+) JOSE (obstructive sleep apnea) I - PHYSICAL EVALUATION AIRWAY Patient intubated: No. Tracheostomy tube not present Mallampati: II. TM distance: >3 FB. Neck ROM: full ROM without neurological symptoms. Mouth opening: adequate. Short neck: no. Thick neck: no DENTAL Dental findings: teeth intact. Additional exam findings: yes. CARDIOVASCULAR Rhythm: regular Rate: normal PULMONARY Breath sounds clear to auscultation. II - ANESTHESIA PLAN ASA Score: 3 Anesthetic Plan: MAC The patient is not a current smoker. NPO Status: adequate Beta Franc Monitoring Plan Monitoring plan: standard ASA. Post Procedure Analgesic Plan Postoperative analgesic plan: parenteral or oral opioids. Informed Consent Anesthetic risks, benefits, alternatives, personnel and consent discussed: yes. Patient / Responsible Constitution Party agrees to proceed: yes Patient / Surrogate agrees to blood products: Yes No vitals data found for the desired time range. No current facility-administered medications on file as of 03/08/2023. Outpatient Medications as of 03/08/2023 Medication Sig - metoprolol succinate ER (TOPROL XL) 50 mg 24 hr tablet q 24 HR. - omeprazole (PRILOSEC) 20 mg capsule omeprazole 20 mg capsule,delayed release TAKE 2 CAPSULES BY MOUTH EVERY DAY - prednisoLONE acetate (PRED FORTE) 1 % ophthalmic suspension USE DIRECTED BY PHYSICIAN, IN OPERATIVE EYE, BEGINNING ONE DAY AFTER SURGERY - keTORolac (ACULAR) 0.5 % ophthalmic solution USE DIRECTED BY PHYSICIAN, IN OPERATIVE EYE, BEGINNING ONE DAY AFTER SURGERY - keTORolac (ACULAR) 0.5 % ophthalmic solution 1 drop in the operative eye 4 times daily for 10 days after surgery, then taper as directed. - prednisoLONE acetate (PRED FORTE) 1 % ophthalmic suspension 1 drop in the operative eye 4 times daily for 10 days after surgery, then taper as directed. - aspirin, enteric coated (ASPIRIN, ENTERIC COATED) 81 mg EC tablet Take 81 mg by mouth once daily. - gemfibrozil (LOPID) 600 mg tablet Take 600 mg by mouth. - lisinopril (ZESTRIL, PRINIVIL) 10 mg tablet Take 10 mg by mouth. - rosuvastatin (CRESTOR) 40 mg tablet Take 40 mg by mouth once daily. - furosemide (LASIX ORAL) Take 20 mg by mouth. I have interviewed and examined the patient. I have reviewed the medical record and/or the pre-anesthesia evaluation, pertinent labs, and test results. This contains updated information obtained within 48 hours of Surgery/Procedure. SIGNATURE: Johnathan Melton II, DO PATIENT NAME: Darius Thacker DATE: March 08, 2023 TIME: 11:29 AM CSN: [id number] [facility] OPERATIVE NOon 03-08-2023 OPERATIVE NO HNO ID: [id number] Author: Sheree Schaffer V, MD Service: Ophthalmology Author Type: Physician Type: Operative Report Filed: 03/08/2023 12:18 PM Note Text: OPERATIVE REPORT DATE OF SERVICE: March 08, 2023 PRIMARY SURGEON: Sheree Schaffer M.D. INJECTION MOLDER: None Procedure(s) (LRB): PHACOEMULSIFICATION CATARACT IMPLANT INTRAOCULAR LENS W/O ENDOSCOPIC CYCLOPHOTOCOAGULATION (Right) OPHTHALMIC BIOMETRY BY PARTIAL COHERENCE INTERFEROMETRY W/INTRAOCULAR LENS POWER CALCULATION (Right) ANESTHESIA: Topical with monitored anesthesia care. PREOPERATIVE DIAGNOSIS: Combined cataract POSTOPERATIVE DIAGNOSIS: Combined cataract, presbyopia OPERATIVE INDICATIONS: BAT 20/50 OPERATIVE PROCEDURE: The patient was admitted to the operating suite where an IV and BP, EKG, and O2 monitors were placed. Nasal oxygen was administered. The operative eye was confirmed, marked, then pretreated with 2.5% tropicamide and 1% phenylephrine eye drops. With the patient in the supine position, topical lidocaine gel 2% was placed in a small ribbon in the lower cul-de-sac. The patient was then prepped and draped in the usual sterile fashion for intraocular surgery. After a time-out confirming correct patient, correct eye, correct operation, presence of allergies, and correct implant, an eyelid speculum was placed. Under the operating microscope a beveled clear corneal incision was created temporally with a Elem blade then a 2.4 mm keratome. The anterior chamber was reformed with Viscoat, after which the anterior capsule was opened centrally. Using the Utrata forceps a continuous curvilinear capsulorrhexis of approximately 5.5 mm round was created. Gentle hydrodissection was accomplished using preservative-free lidocaine on a 27-gauge cannula. Using the Leonardo phacoemulsification unit with the Kelman curved tip, the anterior chamber was entered and the nucleus was removed while it was in the bag. The epinuclear ring was dissected into several segments, then removed using the phacoemulsification unit set to the desired aspiration flow rate and ultrasound parameters. It was necessary to use chopper forceps at various intervals to aid in the fragmentation of the dense lens material. Great care was taken not to violate the posterior capsule. The silicone-tipped I and A instrument was used to remove the cortex and buff off any remaining cataractous material from the posterior capsule. The capsular bag was then reformed with Discovisc and the following Intraocular lens implant Implant Name Type Inv. Item Serial No. Pickle Cutter Lot No. LRB No. Used Action Model No. CLAREON ASPHERIC UV ABSORBING IOL +20.5D Intraocular Lens [id number] Nutraspace Right 1 Implanted [id number] was inserted through the lips of the wound into the capsular bag. Using the I and A instrument, the Discovisc was removed from the anterior chamber and capsular bag, and the implant was centered. Cefuroxime 1mg in 0.1 mL normal saline was introduced into the anterior chamber through the clear corneal incision using a 30 gauge cannula. The wound was checked and found to be watertight. At the end of the procedure, the cornea was clear, the anterior chamber was deep and clear, the pupil was round, the implant was centered within the capsular bag, and the posterior capsule was intact. The eyelid speculum was removed and prednisolone acetate 1% and timolol 0.5% eye drops were administered. A shield was affixed over the eye and the patient was sent to the recovery room, leaving the operating room in excellent condition. ESTIMATED BLOOD LOSS: <1mL SPECIMEN: None FINDINGS: Age-related cataract COMPLICATIONS: None Incision/Procedure Start Time: 12:10 PM Incision Close/Procedure End Time: 12:16 PM - Comanage with Dr Breen; [facility] POD #1 Sheree SCHAFFER MD [facility] HISTORY PHYSICALon HISTORY PHYSICAL HNO ID: [id number] Author: Christi Hernandez APRN.PROMOTIONS DIRECTOR Service: ? Author Type: Nurse Practitioner Type: HANDP Filed: 03/01/2023 2:24 PM Note Text: HISTORY AND PHYSICAL EXAMINATION SERVICE DATE: 03/01/2023 SERVICE TIME: 1:44 PM PRIMARY CARE PHYSICIAN: Maria D Petersen PA-C REASON FOR VISIT: Darius Thacker is a 62 year old male who is scheduled for PHACOEMULSIFICATION CATARACT IMPLANT INTRAOCULAR LENS W/O ENDOSCOPIC CYCLOPHOTOCOAGULATION - Right with Sheree Schaffer V, MD on 03/08/2023 BILATERAL at the request of Dr. Sheree Schaffer V for consultation. My final recommendation will be communicated back to the requesting physician by way of shared medical record or letter. The patient has the following: ACTIVE PROBLEM LIST Hyperlipidemia Diverticulosis Fracture, Ankle Jose (Obstructive Sleep Apnea) Elevated Liver Enzymes Hypertriglyceridemia Osteoarthritis Asthma Kidney Stones Lumbar Transverse Process Fracture (Hcc) Lumbosacral Neuritis Essential (Primary) Hypertension Generalized Ischemic Myocardial Dysfunction Heart Failure (Hcc) Subjective CHIEF COMPLAINT: Impaired Vision HPI: Patient is a 62 year old male presenting to pre-anesthesia consultation. Patient complains of decreased visual acuity, blurred vision, and difficulty with night driving for > 6 months. Found to have bilateral cataracts. Patient denies pain. No relieving factors, patient has opted for surgical treatment of cataracts. PAST MEDICAL HISTORY Diagnosis Date Asthma Diverticulosis Elevated liver enzymes Fracture, ankle left Hyperlipidemia Hypertension Hypertriglyceridemia Kidney stones JOSE (obstructive sleep apnea) CPAP Osteoarthritis PAST SURGICAL HISTORY Procedure Laterality Date BACK SURGERY HX 07/17/2005 herniated disc by Tamia BUNDY PTCA STENT COLONOSCOPY 07/17/2012 FAMILY HISTORY Problem Relation Age of Onset Cancer Mother other (myocardial infarction [Other]) Father Age 32 other (CABG [Other]) Father age 55 Diabetes Father other (high blood pressure [Other]) Father Arthritis Father other (myocardial infarction [Other]) Paternal Aunt Age Cataract Maternal Grandmother Anesthesia Problems No Family History SOCIAL HISTORY: Social History Tobacco Use Smoking status: Former Packs/day: 1.00 Years: 15.00 Additional pack years: 0.00 Total pack years: 15.00 Types: Cigarettes Quit date: 2001 Years since quittin.6 Smokeless tobacco: Never Substance Use Topics Alcohol use: Not Currently Drug use: No MEDICATIONS: Prior to Admission medications as of 03/01/23 1408 Medication Sig Last Dose Taking spironolactone (ALDACTONE) 12.5 mg tab Yes keTORolac (ACULAR) 0.5 % ophthalmic solution 1 drop in the operative eye 4 times daily for 10 days after surgery, then taper as directed. Yes prednisoLONE acetate (PRED FORTE) 1 % ophthalmic suspension 1 drop in the operative eye 4 times daily for 10 days after surgery, then taper as directed. Yes aspirin, enteric coated (ASPIRIN, ENTERIC COATED) 81 mg EC tablet Take 81 mg by mouth once daily. Yes gemfibrozil (LOPID) 600 mg tablet Take 600 mg by mouth. Yes lisinopril (ZESTRIL, PRINIVIL) 10 mg tablet Take 10 mg by mouth. Yes rosuvastatin (CRESTOR) 40 mg tablet Take 40 mg by mouth once daily. Yes furosemide (LASIX ORAL) Take 20 mg by mouth. Yes metoprolol succinate ER (TOPROL XL) 50 mg 24 hr tablet q 24 HR. Yes omeprazole (PRILOSEC) 20 mg capsule omeprazole 20 mg capsule,delayed release TAKE 2 CAPSULES BY MOUTH EVERY DAY Yes No medication comments found. CURRENT ALLERGIES: ALLERGIES No Known Allergies Covid Immunization Dates COVID-19 VACCINE (Series Information) Completed 05/31/2022 Imm Admin: COVID-19 vaccine, age 12+ yr, bivalent (MODERNA) 05/11/2021 Imm Admin: COVID-19 original vaccine, full dose, monovalent (MODERNA) 11/12/2020 Imm Admin: COVID-19 original vaccine, full dose, monovalent (MODERNA) 10/19/2020 Imm Admin: COVID-19 original vaccine, full dose, monovalent (MODERNA) REVIEW OF SYSTEMS: PAIN ASSESSMENT: Pain Pain Level: 0 General: No weight loss, malaise or fevers. Neuro: No history of TIA's, stroke, MANAGER LEASING tumor, impaired sensorium, hemiplegia, paraplegia or quadraplegia. No neurological symptoms or problems. Respiratory: No history of current cough or dyspnea, or pneumonia in the past 6 weeks. No history of respiratory/pulmonary symptoms or problems. +JOSE Cardiovascular: Negative for Recent VT, Angina, Chest Pain, DVT/PE + CHF + HTN + HLD + CAD GI: No history of GI symptoms or problems. No history of esophageal varices, recent ascites, or ETOH greater than 2 drinks per day. : No history of dysuria, frequency or incontinence,, stones or chronic kidney disease Endocrine: No history of diabetes. Has not taken steroids within the past 30 days. No history of endocrinological symptoms or problems. Hematology: No history of bleeding (more content not included)... [facility] 36on 02-02-2023 36 I tried to get his e cho approved but his insurance is requiring a peer to peer. If you'd like to complete this, you'll need to call [facility] at [phone]. Use patient's name, , and ) to pull up the case. Let me know the outcome please. Thanks. [facility] Office Visiton 01-30-2023 Follow-up visit [id number] Jb Thacker 1960 M Date Provider Department Center 01/30/2023 [id number] RAVI [facility] Family History Problem Relation Age of Onset Leukemia Mother Diabetes Father Heart attack Father Family Status - Relation Status Age at Mother Father Level of Service:83840 [place] OFFICE/OUTPATIENT ESTABLISHED LOW MDM 20-29 MIN Reason for Visit and Comments: Follow-up [111249] - 2 month follow up [facility] ANES POSTPROC EVALon 023 ANES POSTPROC EVAL HNO ID: [id number] Author: Vipul García DO Service: Anesthesiology Author Type: Anesthesiologist Type: Anesthesia Postprocedure Evaluation Filed: 01/11/2023 3:55 PM Note Text: POST ANESTHESIA EVALUATION NOTE : 1960 Procedure Summary Date: 01/11/23 Room / Location: [address] Anesthesia Start: 1325 Anesthesia Stop: 1349 Procedures: PHACOEMULSIFICATION CATARACT IMPLANT INTRAOCULAR LENS W/O ENDOSCOPIC CYCLOPHOTOCOAGULATION (Left: Eye) OPHTHALMIC BIOMETRY BY PARTIAL COHERENCE INTERFEROMETRY W/INTRAOCULAR LENS POWER CALCULATION (Left: Eye) Diagnosis: Combined forms of age-related cataract of both eyes (Combined forms of age-related cataract of both eyes [H25.813]) Surgeons: Sheree Schaffer V, MD Responsible Provider: Vipul García DO Anesthesia Type: MAC ASA Status: 3 Anesthesia Type: MAC Last Vitals Vitals Value Taken Time BP 113/76 01/11/23 1358 Temp 36.1 ?C (97 ?F) 01/11/23 1348 Pulse 68 01/11/23 1358 Resp 16 01/11/23 1358 SpO2 97 % 01/11/23 1358 Post Anesthesia Patient Status Patient Evaluation: PACU. PACU/ICU Patient Condition: stable. Anticipated Disposition: phase 2 then home. Neurological Status: aware and responsive. Pulmonary Status: breathing comfortably on room air Airway Control: returned to baseline unsupported. Cardiovascular Status: stable. Pain Management: clinically adequate - multimodal analgesia pain management approach Postoperative Hydration: acceptable. Intraoperative Events: no significant anesthesia events Post Operative Nausea/Vomiting Status: no significant post operative nausea or vomiting Recommendation: continue current plan of care. Anesthesia Observations No Documentation SIGNATURE: Vipul García DO PATIENT NAME: Darius Thacker DATE: January 11, 2023 TIME: 3:55 PM CSN: [id number] [facility] ANES PRE-OPon 01-11-2023 ANES PRE-OP HNO ID: [id number] Author: Vipul García DO Service: Anesthesiology Author Type: Anesthesiologist Type: Anesthesia Preprocedure Evaluation Filed: 01/11/2023 1:11 PM Note Text: ANESTHESIOLOGY DAY OF SURGERY NOTE : 1960 Procedure Information Date/Time: 01/11/23 1155 Procedures: PHACOEMULSIFICATION CATARACT IMPLANT INTRAOCULAR LENS W/O ENDOSCOPIC CYCLOPHOTOCOAGULATION (Left: Eye) OPHTHALMIC BIOMETRY BY PARTIAL COHERENCE INTERFEROMETRY W/INTRAOCULAR LENS POWER CALCULATION (Left: Eye) Location: [address] Surgeons: Sheree Schaffer V, MD Estimated body mass index is 25.54 kg/m? as calculated from the following: Height as of 12/29/22: 177.8 cm (5' 10 ). Weight as of 12/29/22: 80.7 kg (178 lb). Most recent hematocrit and potassium results: No results found for this basename: HCT,HEMATOCRIT,K,POTASSI UM Relevant Problems ANESTHESIA (+) JOSE (obstructive sleep apnea) CARDIO (+) Essential (primary) hypertension -RENAL (+) Kidney stones PULMONARY (+) Asthma (+) JOSE (obstructive sleep apnea) I - PHYSICAL EVALUATION AIRWAY Patient intubated: No. Tracheostomy tube not present Mallampati: IV. TM distance: <3 FB. Neck ROM: full ROM without neurological symptoms. Mouth opening: adequate. Short neck: yes. Thick neck: yes DENTAL Dental findings: teeth intact. Additional exam findings: yes. Other findings: Reduced ejection fraction per Patient. 2/2 ischemic cardiomyopathy. Stent placed in LAD years ago. ASA daily. Follows cardiology. METS >10.. II - ANESTHESIA PLAN ASA Score: 3 Anesthetic Plan: MAC The patient is not a current smoker. NPO Status: adequate Beta Franc Monitoring Plan Monitoring plan: standard ASA. Post Procedure Analgesic Plan Postoperative analgesic plan: multimodal analgesia. Informed Consent Anesthetic risks, benefits, alternatives, personnel and consent discussed: yes. Patient / Responsible Constitution Party agrees to proceed: yes Patient / Surrogate agrees to blood products: blood products not planned Significant changes in the patient condition since the History and Physical, not otherwise documented in primary service progress note: no. Potential Anesthesia issues that may suggest increased risk of complications or contraindication to planned procedure: none. Vitals Value Taken Time BP 135/79 01/11/23 1245 Pulse 59 01/11/23 1245 Resp 16 01/11/23 1245 Temp 36.2 ?C (97.2 ?F) 01/11/23 1245 SpO2 97 % 01/11/23 1245 Facility-Administered Medications as of 01/11/2023 Medication Dose Route Frequency - NaCl 0.9% iv infusion 30 mL/hr INTRAVENOUS CONTINUOUS - [COMPLETED] lidocaine HCl (PF) 40 mg/mL 2 mg injection (XYLOCAINE) 0.05 mL LEFT EYE EVERY 5 MINUTES X 3 DOSES - [COMPLETED] PHENYLephrine 2.5 % 1 Drop (AK-DILATE, CODEY-SYNEPHRINE) 1 Drop LEFT EYE EVERY 5 MINUTES X 3 DOSES - [COMPLETED] tropicamide 1 % 1 Drop (MYDRIACYL) 1 Drop LEFT EYE EVERY 5 MINUTES X 3 DOSES - cyclopentolate 1 % 1 Drop (CYCLOGYL) 1 Drop LEFT EYE Pre-Op PRN - [COMPLETED] keTORolac 0.5 % 1 Drop (ACULAR) 1 Drop LEFT EYE q 5 MIN - [COMPLETED] Povidone-Iodine 5 % 30 mL ophth soln (BETADINE) 30 mL LEFT EYE ONCE - [COMPLETED] balanced salts 15 mL (BSS) 15 mL LEFT EYE ONCE Outpatient Medications as of 01/11/2023 Medication Sig - aspirin, enteric coated (ASPIRIN, ENTERIC COATED) 81 mg EC tablet Take 81 mg by mouth once daily. - gemfibrozil (LOPID) 600 mg tablet Take 600 mg by mouth. - lisinopril (ZESTRIL, PRINIVIL) 10 mg tablet Take 10 mg by mouth. - rosuvastatin (CRESTOR) 40 mg tablet Take 40 mg by mouth once daily. - metoprolol succinate ER (TOPROL XL) 50 mg 24 hr tablet q 24 HR. - omeprazole (PRILOSEC) 20 mg capsule omeprazole 20 mg capsule,delayed release TAKE 2 CAPSULES BY MOUTH EVERY DAY - prednisoLONE acetate (PRED FORTE) 1 % ophthalmic suspension USE DIRECTED BY PHYSICIAN, IN OPERATIVE EYE, BEGINNING ONE DAY AFTER SURGERY - keTORolac (ACULAR) 0.5 % ophthalmic solution USE DIRECTED BY PHYSICIAN, IN OPERATIVE EYE, BEGINNING ONE DAY AFTER SURGERY - furosemide (LASIX ORAL) Take 20 mg by mouth. - fluticasone (FLONASE) 50 mcg/actuation nasal spray Use 1 [place] in each nostril as needed. I have interviewed and examined the patient. I have reviewed the medical record and/or the pre-anesthesia evaluation, pertinent labs, and test results. This contains updated information obtained within 48 hours of Surgery/Procedure. SIGNATURE: Vipul García DO PATIENT NAME: Darius Thacker DATE: January 11, 2023 TIME: 1:08 PM CSN: [id number] [facility] OPERATIVE NOon 01-11-2023 OPERATIVE NO HNO ID: [id number] Author: Sheree Schaffer V, MD Service: Ophthalmology Author Type: Physician Type: Operative Report Filed: 01/11/2023 1:46 PM Note Text: OPERATIVE REPORT DATE: January 11, 2023 PRIMARY SURGEON: Sheree Schaffer MD INJECTION MOLDER: None OPERATION: Phacoemulsification of cataract, insertion of posterior chamber intraocular lens implant, left eye - COMPLEX PREOPERATIVE DIAGNOSIS: Age-related mature cataract POSTOPERATIVE DIAGNOSIS: Age-related mature cataract OPERATIVE INDICATIONS: Best corrected visual acuity 20/150 ANESTHESIA: Topical with monitored anesthesia care OPERATIVE PROCEDURE: The patient was admitted to the operating suite where an IV and BP, EKG, and O2 monitors were placed. Nasal oxygen was administered. The operative eye was confirmed, marked, then pretreated with 2.5% tropicamide, 1% phenylephrine, and ciprofloxacin eye drops. With the patient in the supine position, topical lidocaine gel 2% was placed in a small ribbon in the lower cul-de-sac. The patient was then prepped and draped in the usual sterile fashion for intraocular surgery. After a time-out confirming correct patient, correct eye, correct operation, presence of allergies, and correct implant, an eyelid speculum was placed. Under the operating microscope a beveled clear corneal incision was created temporally with a Elem blade then a 2.4 mm keratome. The patient was observed to have a dense mature cataract obscuring the red reflex, thus requiring Trypan Blue to afford better visualization of the anterior capsule. Trypan Blue was introduced into the anterior chamber, then replaced with Viscoat. The anterior capsule was opened centrally, and using the Utrata forceps a continuous curvilinear capsulorrhexis of approximately 5.5 mm round was created. Gentle hydrodissection was accomplished using preservative-free lidocaine on a 27-gauge canula. Using the Leonardo phacoemulsification unit with the Kelman curved tip, the anterior chamber was entered and the nucleus was removed while it was in the bag. The epinuclear ring was dissected into several segments, then removed using the phacoemulsification unit set to the desired aspiration flow rate and ultrasound parameters. Great care was taken not to violate the posterior capsule. The silicone-tipped I and A instrument was used to remove the cortex and buff off any remaining cataractous material from the posterior capsule. The capsular bag was then reformed with Discovisc and an Leonardo CC60WF 21.0 diopter intraocular lens was inserted through the lips of the wound into the capsular bag. Using the I and A instrument, the Discovisc was removed from the anterior chamber and capsular bag, and the implant was centered. Cefuroxime 1mg in normal saline was introduced into the anterior chamber through the clear corneal incision using a 30 gauge cannula. The wound was checked and found to be watertight. At the end of the procedure, the cornea was clear, the anterior chamber was deep and clear, the pupil was round, the implant was centered within the capsular bag, and the posterior capsule was intact. The eyelid speculum was removed and timolol and Maxitrol eye drops were administered. A shield was affixed over the eye and the patient was sent to the recovery room, leaving the operating room in excellent condition. ESTIMATED BLOOD LOSS: <1mL SPECIMEN: None COMPLICATIONS: None Incision/Procedure Start Time: 1:31 PM Incision Close/Procedure End Time: 1:43 PM - [facility]1 Sheree SCHAFFER MD [facility] HISTORY PHYSICALon HISTORY PHYSICAL HNO ID: [id number] Author: Sheeba Webster APRN.PROMOTIONS DIRECTOR Service: ? Author Type: Nurse Practitioner Type: HANDP Filed: 12/29/2022 2:54 PM Note Text: HISTORY AND PHYSICAL EXAMINATION SERVICE DATE: 12/29/2022 SERVICE TIME: 1:36 PM PRIMARY CARE PHYSICIAN: SELWYN Bhatt REASON FOR VISIT: Darius Thacker is a 62 year old male who is scheduled for PHACOEMULSIFICATION CATARACT IMPLANT INTRAOCULAR LENS W/O ENDOSCOPIC CYCLOPHOTOCOAGULATION left at the request of Dr. Sheree Schaffer V for consultation. My final recommendation will be communicated back to the requesting physician by way of shared medical record or letter. The patient has the following: ACTIVE PROBLEM LIST Hyperlipidemia Diverticulosis Fracture, Ankle Jose (Obstructive Sleep Apnea) Elevated Liver Enzymes Hypertriglyceridemia Osteoarthritis Asthma Kidney Stones Lumbar Transverse Process Fracture (Hcc) Lumbosacral Neuritis Essential (Primary) Hypertension Generalized Ischemic Myocardial Dysfunction Subjective CHIEF COMPLAINT: Left eye change of vision HPI: 62 year old male with left eye change of vision that has been ongoing for 6 months. Patient states that he has blurred Vision,decreased vision,difficulty with driving,difficulty with reading,difficulty with watching television,floaters,glar e. Patient denies any alleviating factors. Patient denies any pain today PAST MEDICAL HISTORY Diagnosis Date Asthma Diverticulosis Elevated liver enzymes Fracture, ankle left Hyperlipidemia Hypertriglyceridemia Kidney stones JOSE (obstructive sleep apnea) CPAP Osteoarthritis PAST SURGICAL HISTORY Procedure Laterality Date BACK SURGERY HX 2005 herniated disc by Tamia Veronica COLONOSCOPY 2013 FAMILY HISTORY Problem Relation Age of Onset other (myocardial infarction [Other]) Father Age 32 other (CABG [Other]) Father age 55 Diabetes Father other (high blood pressure [Other]) Father Arthritis Father Cancer Mother Cataract Maternal Grandmother other (myocardial infarction [Other]) Paternal Aunt Age SOCIAL HISTORY: Social History Tobacco Use Smoking status: Former Packs/day: 1.00 Years: 15.00 Pack years: 15.00 Types: Cigarettes Quit date: 2001 Years since quittin.4 Smokeless tobacco: Never Substance Use Topics Alcohol use: Not Currently Comment: 5 drinks per week, sometimes more Drug use: No MEDICATIONS: Prior to Admission medications as of 12/29/22 1334 Medication Sig Last Dose Taking aspirin, enteric coated (ECOTRIN LOW STRENGTH) 81 mg EC tablet Take 81 mg by mouth once daily. Yes gemfibrozil (LOPID) 600 mg tablet Take 600 mg by mouth. Yes lisinopril (ZESTRIL, PRINIVIL) 10 mg tablet Take 10 mg by mouth. Yes rosuvastatin (CRESTOR) 40 mg tablet Take 40 mg by mouth once daily. Yes furosemide (LASIX ORAL) Take 20 mg by mouth. Yes metoprolol succinate ER (TOPROL XL) 50 mg 24 hr tablet q 24 HR. Yes omeprazole (PRILOSEC) 20 mg capsule omeprazole 20 mg capsule,delayed release TAKE 2 CAPSULES BY MOUTH EVERY DAY Yes fluticasone (FLONASE) 50 mcg/actuation nasal spray Use 1 [place] in each nostril as needed. Yes No medication comments found. CURRENT ALLERGIES: ALLERGIES No Known Allergies COVID VACCINATION STATUS: Fully vaccinated REVIEW OF SYSTEMS: PAIN ASSESSMENT: General: No weight loss, malaise or fevers. Neuro: No history of TIA's, stroke, MANAGER LEASING tumor, impaired sensorium, hemiplegia, paraplegia or quadraplegia. No neurological symptoms or problems. Positive [place] bilateral hearing aids Respiratory: Positive for Tobacco Use quit in 2001 JOSE compliant with CPAP , Negative for No history of current cough or dyspnea, or pneumonia in the past 6 weeks. Cardiovascular: Positive for: HLD, Hypertension History of CAD s/p PTCA in 2014 Heart Failure on Lasix EF 40% Denies rest pain, gangrene or revascularization/amputa tion for PVD GI: Positive for GERD, Negative for Esophageal varices < 6 months, Hepatitis, Liver disease, Pancreatitis, Colon cancer, Rectal cancer : No history of dysuria, frequency or incontinence,, stones or chronic kidney disease, No difficulty urinating, nocturia > 1 time per night or hematuria Endocrine: No history of diabetes. Has not taken steroids within the past 30 days. No history of endocrinological symptoms or problems. Hematology: Chronic anti-coagulation / platelet meds (Aspirin) Oncology: No history of CA metastasis, chemo within 30 days, or radiotherapy within 90 days. Has not lost 10% of body wt in 6 months. No history of oncological symptoms or problems. Psych: No history of psychiatric symptoms or problems. Musculoskeletal: Joint pain Skin: Negative for lesions, rash and itching. Objective PHYSICAL EXAM: VITALS: BP 115/75 Pulse 57 Temp (Src) 97.2 (Temporal Artery) Resp 16 Ht 5' 10 (1.78m) Wt 178 lb (80.7kg) SpO2 100% BMI 25.54 kg/(m2). General: Alert and oriented, No acute distr (more content not included)... [facility] DARIUS THACKER ([id number]) 1960 M Date Time Provider Department 12/16/22 SHEREE SCHAFFER V OPHTLGio During your visit today, we recorded the following information about you: Kateryna Mclaughlin [facility] 12/16/2022 11:34 AM Signed Called and spoke to patient and scheduled pre op appointments for 12/29. I advised him that we will contact Dr Breen' office and set up the post op appointments (1 day and 1 week). Asked if it was okay that we send him a Matthew Kenney Cuisinehart message with those appointments. He confirmed mychart was okay. Add on 01/11 per AH - call to schedule Received: Yesterday [address] [facility] CHART MADE AND FILED IN PERSIA PATIENT SCHEDULED FOR SX OS ONLY 01/11/23 - ADD PER AH MYC OK: --NO CALL TO SCHEDULE PH #: VERIFIED SR/CASE MSG DONE: YES NOTES: POST OPS W/: DR STEFF Schaffer V, MD P Ln Opht Surg Powder Monkey Left eye only Comanage with Dr Breen The documentation for this note was completed by Lucie Osei, COA acting as a scribe for Sheree SCHAFFER MD. 12/15/2022 12:36 PM. ASSESSMENT / PLAN: 1. Combined cataract, both eyes - Offered cataract extraction by phacoemulsification and intraocular lens implant with Dr. Schaffer, left eye only at this time - Aim: -1.50 Left eye [plano Right eye, when/if elects Cataract extraction OD] - Flomax/alpha-franc? No - Toric candidate: No - PanOptix candidate: No - Anesthesia: Topical with MAC - Contact lens use No - History of LASIK/PRK/RK No - Discussed initiate twice daily eyelid scrubs pending U/S biometry and surgery - Comanage with Dr Breen; [facility] POD #1 Allergies As of Date: 12/16/2022 (No Known Allergies) Date Reviewed: 12/15/2022 Reviewed by: Sheree Schaffer V, MD - Fully Assessed Reason for Visit: Schedule Surgery [1330] Prescriptions as of 12/20/2022 - aspirin-caffeine 1,000-150 mg pwpk Take 81 mg by mouth. - gemfibrozil (LOPID) 600 mg tablet Take 600 mg by mouth. - lisinopril (ZESTRIL, PRINIVIL) 10 mg tablet Take 10 mg by mouth. - omeprazole magnesium (PRILOSEC ORAL) Take 20 mg by mouth twice daily. - rosuvastatin (CRESTOR) 40 mg tablet Take 40 mg by mouth once daily. - furosemide (LASIX ORAL) Take 20 mg by mouth. - metoprolol succinate ER (TOPROL XL) 50 mg 24 hr tablet q 24 HR. - omeprazole (PRILOSEC) 20 mg capsule omeprazole 20 mg capsule,delayed release TAKE 2 CAPSULES BY MOUTH EVERY DAY - methylPREDNISolone (MEDROL DOSE-PACK) 4 mg Dose-Pack As Instructed per package - gabapentin (NEURONTIN) 300 mg capsule Take one capsule at bedtime for 3-5 days, then one in the morning and one at night for 3-5 days. Then increase to one capsule three times daily if tolerating well. - HYDROcodone-acetaminophe n (NORCO) 5-325 mg per tablet Take 1 tablet by mouth every 6 hours as needed. - cyclobenzaprine (FLEXERIL) 10 mg tablet Take 10 mg by mouth three times daily as needed. - fluticasone (FLONASE) 50 mcg/actuation nasal spray Use 1 [place] in each nostril as needed. - desvenlafaxine ER (PRISTIQ) 50 mg 24 hr tablet Take 50 mg by mouth once daily. - ezetimibe (ZETIA) 10 mg tablet Take 10 mg by mouth once daily. Problem List As Of Date 12/16/2022 Noted Resolved Hyperlipidemia [E78.5] 03/18/2014 Diverticulosis [K57.90] Fracture, ankle [S82.899A] JOSE (obstructive sleep apnea) [G47.33] Elevated liver enzymes [R74.8] Hypertriglyceridemia [E78.1] Osteoarthritis [M19.90] Asthma [J45.909] Kidney stones [N20.0] Lumbar transverse process fracture (HCC) [S32.0*11/07/2014 Lumbosacral neuritis [M54.17] 10/04/2022 Encounter Status:Closed by KATERYNA JAMESON on 12/16/22 Normal [facility] Office Visiton 11-22-2022 Follow-up visit [id number] Jb Thacker 1960 M Provider Department Center 11/22/2022 [id number] RAVI UGO [place] Family History Problem Relation Age of Onset Leukemia Mother Diabetes Father Heart attack Father Family Status - Relation Status Age at Mother Father Level of Service:98543 [place] OFFICE/OUTPATIENT ESTABLISHED MOD MDM 30-39 MIN Reason for Visit and Comments: Coronary Artery Disease [187] Hypertension [511433] Hyperlipidemia [182] Congestive Heart Failure [127] [facility] 36on 11-11-2022 36 Please let him know his labs showed normal blood counts, normal kidney/liver function and cholesterol levels looked good. Follow-up as scheduled. Thanks! Normal [facility] Telephoneon 11-10-2022 Telephone [id number] Jb Thacker 1960 Date Provider Department Center 11/10/2022 NORA DUVALL Claudio [place]. No family history on file Normal [facility] CBC AUTO DIFFon 11-08-2022 BASO # 0.0 103/ul Normal 0.0-0.1 [facility] Comment on above: Performed By: #### C BC #### [facility] [address] [address] [address] Lenard Maloney Basophils/100 WBC (Bld) 0.7 % Normal 0.2-2.0 [facility] Comment on above: Performed By: #### C BC #### [facility] [address] [place] [address] Dr. Lenard Maloney EO # 0.2 103/ul Normal 0.0-0.7 [facility] Comment on above: Performed By: #### C BC #### [facility] [address] [address] [address] Lenard Maloney Eosinophils/100 WBC (Bld) 2.8 % Normal 0.9-7.0 [facility] Comment on above: Performed By: #### C BC #### [facility] [address] [place] [address] Dr. Lenard Maloney Erythrocyte distribution width (RBC) [Ratio] 11.6 % Normal 11.0-15.0 [facility] Comment on above: Performed By: #### C BC #### [facility] [address] [address] [address] Lenard Maloney Hematocrit (Bld) [Volume fraction] 41.1 % Critically low 42.0-54.0 [facility] Comment on above: Performed By: #### C BC #### [facility] [address] [place] [address] Dr. Lenard Maloney Hemoglobin (Bld) [Mass/Vol] 14.3 g/dL Normal 14.0-18.0 [facility] Comment on above: Performed By: #### C BC #### [facility] [address] [place] [address] Dr. Lenard Maloney IG # 0.01 10e3/ul Normal 0.00-0.03 [facility] Comment on above: Performed By: #### C BC #### [facility] [address] [place] [address] Dr. Lenard Maloney IG % 0.2 % Normal 0.0-0.5 [facility] Comment on above: Performed By: #### C BC #### [facility] [address] [place] [address] Dr. Lenard Maloney LYMPH # 2.1 103/ul Normal 1.2-3.8 [facility] Comment on above: Performed By: #### C BC #### [facility] [address] [place] [address] Dr. Lenard Maloney Lymphocytes/100 WBC (Bld) 34.5 % Normal 20.5-60.0 [facility] Comment on above: Performed By: #### C BC #### [facility] [address] [place] [address] Dr. Lenard Maloney MANUAL DIFF REQ NO Normal [facility] Comment on above: Performed By: #### C BC #### [facility] [address] [place] [address] Dr. Lenard Maloney MCH (RBC) [Entitic mass] 33.3 pg Normal 25.9-34.0 [facility] Comment on above: Performed By: #### C BC #### [facility] [address] [place] [address] Dr. Lenard Maloney MCHC (RBC) [Mass/Vol] 34.8 g/dL Normal 29.9-35.2 [facility] Comment on above: Performed By: #### C BC #### [facility] [address] [place] [address] Dr. Lenard Maloney MCV (RBC) [Entitic vol] 95.8 fL Critically high 80.0-94.0 [facility] Comment on above: Performed By: #### C BC #### [facility] [address] [place] [address] Dr. Lenard Maloney MONO # 0.6 103/ul Normal 0.3-0.8 [facility] Comment on above: Performed By: #### C BC #### [facility] [address] [place] [address] Dr. Lenard Maloney Monocytes/100 WBC (Bld) 10.0 % Normal 1.7-12.0 [facility] Comment on above: Performed By: #### C BC #### [facility] [address] [place] [address] Dr. Lenard Maloney NEUT # 3.2 103/ul Normal 1.4-6.5 [facility] Comment on above: Performed By: #### C BC #### [facility] [address] [place] [address] Dr. Lenard Maloney Neutrophils/100 WBC (Bld) 51.8 % Normal 43.0-75.0 [facility] Comment on above: Performed By: #### C BC #### [facility] [address] [place] [address] Dr. Lenard Maloney Platelet mean volume (Bld) [Entitic vol] 8.0 fL Critically low 9.5-13.5 [facility] Comment on above: Performed By: #### C BC #### [facility] [address] [place] [address] Dr. Lenard Maloney PLT 224 103/ul Normal 150-450 [facility] Comment on above: Performed By: #### C BC #### [facility] [address] [place] [address] Dr. Lenard Maloney RBC 4.29 106/ul Critically low 4.70-6.10 [facility] Comment on above: Performed By: #### C BC #### [facility] [address] [place] [address] Dr. Lenard Maloney WBC 6.1 103/ul Normal 4.0-11.0 [facility] Comment on above: Performed By: #### C BC #### [facility] [address] [place] [address] Dr. Lenard Maloney LIPID PROFILEon 11-08-2022 CHOL-HDL RATIO NORM SEE BELOW Normal [facility] Comment on above: Result Comment: 3.3 - 4.4 LOW RISK 4.4 - 7.1 AVERAGE RISK 7.1 - 11.0 MODERATE RISK >11.0 HIGH RISK Performed By: #### L IPID, CMP #### [facility] [address] [address] [address] Lenard Maloney Cholesterol [Mass/Vol] 195 mg/dL Normal <=200 [facility] Comment on above: Performed By: #### L IPID, CMP #### [facility] [address] [address] [address] Lenard Maloney Cholesterol in HDL [Mass/Vol] 102 mg/dL Critically high 40-60 [facility] Comment on above: Performed By: #### L IPID, CMP #### [facility] [address] [address] [address] Lenard Maloney Cholesterol in LDL [Mass/Vol] 70.0 mg/dL Normal [facility] Comment on above: Performed By: #### L IPID, CMP #### [facility] [address] [address] [address] Lenard Maloney Cholesterol.total/ Cholesterol in HDL [Mass ratio] 1.9 {ratio} Normal [facility] Comment on above: Performed By: #### L IPID, CMP #### [facility] [address] [address] [address] Lenard Maloney HDL NORMAL > or = 60 mg/dl - LO W CARDIOVASCULAR RISK <40 mg/dl - HIGH CARDIOVASCULAR RISK Normal [facility] Comment on above: Performed By: #### L IPID, CMP #### [facility] [address] [address] [address] Lenard Maloney LDL CALC NORMAL SEE BELOW Normal [facility] Comment on above: Result Comment: <100 mg/dl OPTIMAL 100 - 129 mg/dl NEAR OR ABOVE OPTIMAL 130 - 159 mg/dl BORDERLINE HIGH 160 - 189 mg/dl HIGH >190 mg/dl VERY HIGH Performed By: #### L IPID, CMP #### [facility] [address] [address] [address] Lenard Maloney Triglyceride [Mass/Vol] 115 mg/dL Normal <=150 [facility] Comment on above: Performed By: #### L IPID, CMP #### [facility] [address] [place] [address] Dr. Lenard Maloney VLDL CALC 23.0 mg/dL Normal [facility] Comment on above: Performed By: #### L IPID, CMP #### [facility] [address] [place] [address] Dr. Lenard Maloney PROF 14(COMP METB)on 023 Albumin [Mass/Vol] 4.5 g/dL Normal 3.4-5.[address] [facility] Comment on above: Performed By: #### L IPID, CMP #### [facility] [address] [place] [address] Dr. Lneard Maloney Albumin/Globulin [Mass ratio] 1.4 {ratio} Normal [facility] Comment on above: Performed By: #### L IPID, CMP #### [facility] [address] [place] [address] Dr. Lenard Maloeny ALP [Catalytic activity/Vol] 49 U/L Normal 46-116 [facility] Comment on above: Performed By: #### L IPID, CMP #### [facility] [address] [place] [address] Dr. Lenard Maloney ALT [Catalytic activity/Vol] 26 U/L Normal 16-63 [facility] Comment on above: Performed By: #### L IPID, CMP #### [facility] [address] [place] [address] Dr. Lenard Maloney Anion gap [Moles/Vol] 14.2 mmol/L Normal [facility] Comment on above: Performed By: #### L IPID, CMP #### [facility] [address] [place] [address] Dr. Lenard Maloney AST [Catalytic activity/Vol] 23 U/L Normal 15-37 [facility] Comment on above: Performed By: #### L IPID, CMP #### [facility] [address] [place] [address] Dr. Lenard Maloney Bilirubin [Mass/Vol] 0.6 mg/dL Normal 0.2-1.0 [facility] Comment on above: Performed By: #### L IPID, CMP #### [facility] [address] [place] [address] Dr. Lenard Maloney Calcium [Mass/Vol] 9.2 mg/dL Normal 8.5-10.[address] [facility] Comment on above: Performed By: #### L IPID, CMP #### [facility] [address] [place] [address] Dr. Lenard Maloney Chloride [Moles/Vol] 97 mmol/L Critically low 98-107 [facility] Comment on above: Performed By: #### L IPID, CMP #### [facility] [address] [place] [address] Dr. Lenard Maloney CO2 [Moles/Vol] 28.7 mmol/L Normal 21.0-32.0 [facility] Comment on above: Performed By: #### L IPID, CMP #### [facility] [address] [place] [address] Dr. Lenard Maloney Creatinine [Mass/Vol] 0.84 mg/dL Normal 0.70-1.30 [facility] Comment on above: Performed By: #### L IPID, CMP #### [facility] [address] [place] [address] Dr. Lenard Maloney EGFR-AF MONGOLIAN >60 Normal >=60 [facility] Comment on above: Performed By: #### L IPID, CMP #### [facility] [address] [place] [address] Dr. Lenard Maloney EGFR-NON AF MONGOLIAN >60 Normal >=60 [facility] Comment on above: Performed By: #### L IPID, CMP #### [facility] [address] [place] [address] Dr. Lenard Maloney Globulin (S) [Mass/Vol] 3.2 g/dL Normal [facility] Comment on above: Performed By: #### L IPID, CMP #### [facility] [address] [place] [address] Dr. Lenard Maloney Glucose [Mass/Vol] 109 mg/dL Critically high 74-[address] [facility] Comment on above: Performed By: #### L IPID, CMP #### [facility] [address] [place] [address] Dr. Lenard Maloney Potassium [Moles/Vol] 3.9 mmol/L Normal 3.5-5.1 [facility] Comment on above: Performed By: #### L IPID, CMP #### [facility] [address] [place] [address] Dr. Lenard Maloney Protein [Mass/Vol] 7.7 g/dL Normal 6.4-8.2 [facility] Comment on above: Performed By: #### L IPID, CMP #### [facility] [address] [place] [address] Dr. Lenard Maloney Sodium [Moles/Vol] 136 mmol/L Normal 136-[address] [facility] Comment on above: Performed By: #### L IPID, CMP #### [facility] [address] [place] [address] Dr. Lenard Maloney Urea nitrogen [Mass/Vol] 17.0 mg/dL Normal 7.0-18.0 [facility] Comment on above: Performed By: #### L IPID, CMP #### [facility] [address] [place] [address] Dr. Lenard Maloney Urea nitrogen/Creatinin e [Mass ratio] 20.2 mg/mg Normal [facility] Comment on above: Performed By: #### L IPID, CMP #### [facility] [address] [place] [address] Dr. Lenard Maloney Patient Messageon 10-24-2022 Patient Message [id number] Jb Thacker 1960 M Date Provider Department Center 10/24/2022 [id number] [address]FF[address] [facility] No family history on file Normal [facility] Coding Summary.on 10-15-2022 Coding Summary. CD:[id number] Ww+P GhlYWQ+GD8HZHWbY40tfDUtm I4jU1VYOXyKAsznBIXFCNkGH vYpsiZwNV5ycXFmZRFy IC8+HQ2gYEMoQmzrcWWce4F1 gXQ2F65rrq6pUPsziLA0FAAk GuCdljdex2mxsRc2ERmzZpwk OyBt UAUquU53ZWW2lD09Fl70xIWs eLNjt0iblEi7DzHyGXCzKSN8 gZpyWSvju6WuOWFhW01cxABy c2U6 QXJksVqfcTFhTpLrqGI3kS1b DBroreeal5ivvqicSjv3qe17 nHXjt1K9rJL5S6NkclA3MJWa bGQg ByvchDGBgN9hybsfo5cfwgbx RvFlZBOhUGc0QJu7IUUwhDrf NmXoKW20DMU3OEXgqlIqB8Na LWFs zZudTqQ8m6V3Ol7MX0KPVjky A8GAJFWRYEucoKV+KW22cq64 N8NkWpbkDtt8ZWLaLZV3fMB8 aD0n ZQQtLFjva6U6mCY5K3WxxqWq hx0is8voQWUxAUcqI42qlRLm d7D3YYMkhYU8RLAkgVutYlZo aG93 Oyc+YIDjmDjbq0RhXozcq6px w2qtlSd3XbalIIAuvoRgeAxg AZW1t8ZyZz1pWBJcqKM1aHI5 aD0i KvSbMjV8MJzrB256IrOneRBz YpflR61dH2YlhAT+PHRyPjx0 YCPejYlgZA7nG0VrZVYsxhto bGVm yUkdIZ8lOZObpccuMMAiqA4o YIDqA8s2NhUnTsN6NMfwZ9Ix WZBqzaezJk95xW7gKtGwFkP4 MGlu A1XtwdB7VALwdOZvSBtgCBV8 Y34xm3O2EXWhSNWhPYI4dXW0 wF4rxSaxprsgbOAifHbttbVu dGlj LHwbXVuxE858ZUObfDwqBwOw ZGluZyBEYXRlOiAgMDQvMDEv MjAyMzwvdGQ+RVZnGIS3kDzj PSAn xKYjMDmbRf1ccQfbrKqfES3s SMWugjrcWMVhpW4rVSDuxSOe rMfxMH6cILCrqkmnv120IzPz MHB0 WQXxhSXgP7PpcD7gGpOqDAGy CFQbA7OijGFrBXmtD184NLqb PhG0HEWptzArG0KmIHZxdWxx OiB0 r9O9Ag5Nu3KhoxueJ1OldXFr XzDjVmnjKIm1X6GkFrxpbZG+ ZC17XOKiPG36EKt6ETQ5kQkm PSdi QOMdV8FrbJ6oRhNsDNNxRLMf Oyc+PHRhYmxlIHdpZHRoPScx UAYbSoArlBikTB8eNz8pQEXb LWNv dVxcyKWgVtCzw3xtJKUxZIkl KY2tmSrqO2FngTV0DZCqf4z4 Pu89E14dX3CirWT+PGNvbCB3 aWR0 pL4fGqHeKsR9EZmwV049AwIm sDHjFdbcd6evo8cccWp6QhT5 DQAghaIiwSkeREY5u0VtUc15 Y29s IHdpZHRoPSIxNSUiIHZhbGln im7qkV5jCf1+VQJzsUM5mHC7 hR2pIlAdKwF2OKbiF810AcWa cCIv Npoiy4ace6ivcNg3NiVxWMRu gtUzuSpxYTJ1a4CaKi68V9Az zDtuz2OrJra0gu99rKNwj9M1 bGU9 A0QwYWCrmucgrJAnmZunWZ7s ZLTqgtroIOSnzK9cLFLgN5d3 JeMtSjD3BGbqO0XkbwS3HGTy bGQg NSUzvJFMfN6msedef6egovhb QyGqSZFkSUp8KMv1NDRjqKxt AmHcIVX8QbQ1YAI9mDMqnK1p bGln mcvkeV1bShu+UKG8zZYlwGFO IQ9jGgsnrQF+ZZQwQAV9jBtd FSepKPWdiR8iTFZpW2y9ZjDm LjA1 WFkxB9TtzmR2SIZonJUqTGAa eMQPyG3xuqxvv0runikqYnEi XGWxRMh4VRl9RWOaiDthOrOk ZWZ0 SiN8JRL4oNPlhC7reKyfyqqz uG3yCkg+EaiuhGigDUW8OYa0 G3UtUxn6MVSjySwhFP6htIKk ZGlu Oz3clTzwjYsuGD3tVGHjxrmz b222WqBhc2wgOZTgoZJeYVpu HOA7I02zz2S2CJBnKJAsMJP1 dGV4 bH1efEbrpcityKNgrFuuyyVf cHhmNMlqGMjsA783WMNhqYms XsDePJv8T9BcTym3SPEgpBki ZT0n dBTsNXarHh4diJahmPjmYL0j ZSLpgcjwr219YfShc2gmEOEw tLElZTxlHYJ8S50db4L7ZSCg MDAw QRA9nXD1vC2wuBnybfxuvBNg qFdnwaZmcPgiUPxrCReuD601 XHFduGzfNwWqmAc1L7KdKew3 ZCBz mWqePJ8vzKBcKPcmKd2xjEtq gDdcZT5tXQVxzsoyr969AzNu i6yqUAXxwXXkUSyyTHK6X14i b3I6 DLLoJWKhFYF6jZT3wQ9dfLdd bjogbGVmdDsgdmVydGljYWwt VEbpA002DKUhnPnvYgJibRbk bnQg MOuaIPq8X2WuAnxymYP+PC90 QFVfNK38aVVuqHXwm7lfcWn8 WcFvFFBmOAC3jQwjXIsnb0Tv ZXIt Y47wdCYhx9N1WJAhkMlglRDz OyTyuLY6gO0qCFgcfdfpx0ix hmrcKsqcx9wznp46wH11N35e IHdp DVGoDPBcKVKdRHTrkIislw0a dR8uQb9+OJGmoLX7vCH0cQ1r VYJqTaX2HOgzO925KaEwwYCt Pjxj o6qwe7nilOu4TyU6VLBbgiEl nHtnRFC2a8OqRw26S95sHSya JYGmQMOyYKOiEONxaSoxdu0d dG9w Ii8+BOUeaGT1kNS2aA8iLoXs OtJ7DClpI665IoCdgPNzIzno E21wX6OzuTT+LYYxEmc2JTIx dHls SN7qsOBrGCyoIr0yOGZ2FdUp ZoVzOQguS2JsXGAqodzysjmy uKK7PRBlWPHjpC98Fw3jyGva MTBw hMYLrF5yhjqza7wkmvkgEzIl IHZoLKn0KGv1LYVkiBxhMaZh QGB8YkU2TTJ5aEWdvP6irUrl bjog cY9sA3YuNEVsvoyrYc85qU6t WzUlPaT8PNuuOlg+TVlFUlMs IFNURVZFTjwvdGQ+PHRkIHN0 eWxl DPdrAHBnhG2nOTVsZ1u3TrSu QfC6BMneX9OrNSNtivxgZf67 bC8kCsBuIuX2CXldE4FjngP5 IDEw gUPcTMbqJMP1P15mw9U0FMXt MUXwHPT0gJR6wN1mnFpgovvw bGVmdDsgdmVydGljYWwtYWxp Z246 OJHebCxqVeO3SgE6SzP2LsX7 J2GcTss9UDXbvMemJP0lvKAa AVjgUl2enAlsjXwlIO1sWBSk bjtw YXYwlG1zXXFwuUMvtCiiYX8o GPCcgcots903PfNlEQU3JYHh zFDnJ2NygS0wDiIsFGIxMURc O3Rl aQArCFsqZ165THkbAuE4YNAe qyCxT4TnVBLztOhpGkR1a9U8 Wg64QLGGBILncqfepYZ+PHRk IHN0 sVryVMrlIUBwqF8nPWZrS3h8 FiIqEmR4NBobE6WkQRFvqjrl Ml38sE0fZsYpLtG7WDqpS1Pc bnQ6 OLOywFQjHVcnGCQ3C26hu3J3 AXIyTRQwNJD4zJJ1mF6ukLvq bjogbGVmdDsgdmVydGljYWwt YWxp E431OBOivKfoXm0egLQ7B7Yo Dpt1MCUgfNryJR8pqMYiVRsq Wb8qyVatoKqeGJ9jQXFafych YWRk vA3bEOXfdEDnpFmwBJ4kYVDn eazjv509PzInSKI1AIMpcQJo D6UggN9aMtFgQPOaPHIeT0Or eHQt TVkxV180QJcyUhU7CLQhmePu L4ScOCSlaOgjRvE7j2Z1Td9V wPZhXNLlGH35CL88XV02A0Er Pjwv dGFibGU+PHRhYmxlIHdpZHRo PVtrMYRnVkSrlNmjNR8qLs6s XSQeODFiuRigmNBpOuFtj7pq YXBz PRgbEL7ybMsnS4MknVC4CDFf w2k6Lt37W05hW9YdzTC+PGNv uCY5jJD3vN6vRyJwQcW1YQzg Z249 YbOayJBeYneae3dri3zauJi9 ToIcKQQbxpSojHbjNOL7q2Kp Sg86N05qXWrwYHQlLMKnETVx IHZh mFuydo0xbN8cHl9+PGNvbCB3 dEG4eT6iWuEnGtH7ECpoW864 LbSjzKZzZjnfW08qQ5LwjCY+ PHRy Rfy9SNCkuEdsEU9jgCJkFIry Vq6bQIC3EoKlEtEtLMplK3Dj OZVjrntowrtmlOV9UDUdOQEf aW47 Am0wlNamVv6pAAQzDAF3PMOh sBMsW3WxdS1nJlPqKCRfESLo T4IdlXEiKUhfO905KUgoOzQ6 IHZl umScN4ZqFWJwcVcoFtY0f0O4 Rz9ZkNgxsFPzYH3aKzPiHTr2 F8EiFaz2SWCybWhhUK9vbFMb ZGlu Se8fgKznmUbyMW4kSSKvoysu o632NbKkf8afZPQxiJPcVXmx XBO3J92yj7X5TIBtYIQwLHV6 dGV4 kT2veDbdsgflyGQxxHuaycCt kFeuMMfzMAveC285LFPgrQkm WqCREhx2V1BgQga1KLOcuRso ZT0n rTFkDEatNf4rcUlwrQadAP8m XIMokddgn015NeEhh6lgSDWg hXJeQVugGLA8S75wd0U2PNJa MDAw CNU0hPW3dE2tnCeeuyrrlSCw gHpilxVjpVghSYzuGCgtJ196 GPHggMviIo0JQmg4S5VkCxq5 ZCBz tKdtAV1tgVCnQBdaCs6tnFqg bLdnUT1eLJGiwkvgj635EiRf t2stRSMqhFZsQJhaOMK1V13q b3I6 VXGiUHXoDVQ4iQB8jQ1erAyw bjogbGVmdDsgdmVydGljYWwt HOsrR776WXCycFssWaNugHVp Ojwv dGQ+VN65bb43X3SsWijeZrf5 VKSpOIM4dFX5iY3zKJMmSZcg s7U0kLE9M6ZxekLars6kg5fv YXBz BRwiQ49f (more content not included)... Normal [facility] US Renalon 10-13-2022 US Renal Exam Date/Time: 10/11/2022 16:17 EDT Reason for Exam: N28.1 Report IMPRESSION: RIGHT AND LEFT RENAL CYSTS. CLINICAL HISTORY: N28.1. COMMENT: The right kidney measures approximately 10.9 cm in length, with renal cortical thickness of approximately 2.1 cm. The left kidney measures approximately 11.5 cm in length, with renal cortical thickness of approximately 1.9 cm. There is a large partially exophytic cyst involving the mid and superior right kidney, that measures approximately 7.1 x 4.5 x 7.1 cm. There is a 1.5 cm cyst involving the cortex of the medial inferior left kidney. Both kidneys are otherwise unremarkable. No hydronephrosis is noted. Ordering Provider: Maria D PETERSEN FINAL REPORT Dictated: 10/13/2022 1:23 pm Joshua Odonnell M.D. Signed (Electronic Signature): 10/13/2022 1:23 pm Signed by: Joshua Odonnell M.D. Transcribed by: JESSICA Technologist: NGA [facility] Consent for Treatmenton 09-15 Consent for Treatment [id number]: 127 [facility] Physician Orderon 10-06-2022 Physician Order [id number]:1 27 [facility] No Panel Informationon 08-10 [facility] No Panel Information [facility] Vital Signs Date Time Vital Sign Value Performing Clinician Melanie wade 12-29-2022 13:30-0400 Body height 177.8 cm Pacc 2 Work Phone: [facility] 12-29-2022 13:30-0400 Body temperature 97.2 [degF] Pacc 2 Work Phone: [facility] 12-29-2022 13:30-0400 Body weight 80.74 kg Pacc 2 Work Phone: [facility] 12-29-2022 13:30-0400 Diastolic blood pressure 75 mm[Hg] Pacc 2 Work Phone: [facility] 12-29-2022 13:30-0400 Heart rate 57 /min Pacc 2 Work Phone: [facility] 12-29-2022 13:30-0400 Respiratory rate 16 /min Pacc 2 Work Phone: [facility] 12-29-2022 13:30-0400 SaO2% (BldA) [Mass fraction] 100 % Pacc 2 Work Phone: [facility] 12-29-2022 13:30-0400 Systolic blood pressure 115 mm[Hg] Pacc 2 Work Phone: [facility] 05-18-2022 14:19-0400 Body weight 74.66 kg Barber Snow DO Work Phone: [facility] 05-18-2022 14:19-0400 Diastolic blood pressure 70 mm[Hg] Barber Abelis DO Work Phone: [facility] 05-18-2022 14:19-0400 Heart rate 73 /min Barber Snow DO Work Phone: [facility] 05-18-2022 14:19-0400 Systolic blood pressure 107 mm[Hg] Barber Snow DO Work Phone: [facility] Encounters Encounter Date Encounter Type Care Provider Facility Start: 03-08-2024 ambulatory Francois Little ty:MIGUEL Rodriguez Start: 11-16-2023 End: 11-16-2023 ambulatory MARIA D PETERSEN Not Available Start: 10-25-2023 End: 10-25-2023 ambulatory NICOLE RYAN Facility:[facility] Start: 10-25-2023 End: 10-25-2023 Patient encounter procedure Nicole Ryan OD Work Phone: Ophthalmology Comment on above: Keratoconjunctivitis sicca of both eyes not specified as Sjogren's (Primary Dx); 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 of both eyes; Pinguecula of left eye; Pterygium, right; Pseudophakia of both eyes; History of YAG laser capsulotomy of lens, left Start: 09-18-2023 ambulatory Barber donald Work Phone: [facility] Comment on above: Back Pain Start: 09-12-2023 End: 09-12-2023 ambulatory ARTURO DODGE Not Available Start: 06-27-2023 End: 06-27-2023 ambulatory [facility] Start: 06-20-2023 End: 06-20-2023 ambulatory ARTURO DOGDE Not Available Start: 06-01-2023 End: 06-01-2023 ambulatory SHEREE SCHAFFER V Facility:[facility] Start: 06-01-2023 End: 06-01-2023 Patient encounter procedure Sheree Schaffer MD Work Phone: Ophthalmology Comment on above: Left posterior capsu lar opacification (Primary Dx); Pseudophakia of both eyes Start: 05-19-2023 End: 05-19-2023 ambulatory [facility] Start: 04-20-2023 End: 04-20-2023 ambulatory ARTURO TEJADA Facility:[facility] Start: 04-12-2023 End: 04-12-2023 ambulatory ARTURO TEJADA Facility:[facility] Start: 03-13-2023 End: 03-14-2023 ambulatory Rosaura Moseley Facility:[facility] Start: 03-13-2023 End: 03-13-2023 Patient encounter procedure Francois PAYAN [facility] Start: 03-08-2023 End: 03-08-2023 ambulatory MARIA D PETERSEN Facility:[facility] Start: 03-08-2023 End: 03-08-2023 Patient encounter procedure Beatriz Figueroa OD Work Phone: Ophthalmology Comment on above: S/P cataract extract ion and insertion of intraocular lens, left (Primary Dx) Start: 03-01-2023 End: 03-01-2023 ambulatory SHEREE SCHAFFER V Facility:[facility] Start: 01-30-2023 End: 01-30-2023 ambulatory [facility] Start: 01-13-2023 Refill Sheree Schaffer MD Work Phone: Ophthalmology Comment on above: Refill Request Start: 01-11-2023 End: 01-11-2023 ambulatory SHEREE SCHAFFER V Facility:[facility] Start: 12-29-2022 End: 12-29-2022 Patient encounter procedure Eye Measurements Work Phone: Ophthalmology Comment on above: Combined forms of ag e-related cataract of both eyes Start: 12-29-2022 End: 12-29-2022 Admission to [facility] 2 Work Phone: [facility] Start: 12-29-2022 End: 12-29-2022 ambulatory [facility] Work Phone: Pre Anesthesia Comment on above: Pre-op evaluation (P rimary Dx); JOSE (obstructive sleep apnea); Uncomplicated asthma, unspecified asthma severity, unspecified whether persistent; Hyperlipidemia, unspecified hyperlipidemia type; Heart failure, unspecified HF chronicity, unspecified heart failure type (HCC); Essential (primary) hypertension; Generalized ischemic myocardial dysfunction Start: 12-29-2022 End: 12-29-2022 Preprocedural examination done [facility] 2 Work Phone: Pre Anesthesia Start: 12-21-2022 End: 12-21-2022 ambulatory SHEREE SCHAFFER V Facility:[facility] Start: 12-16-2022 Telephone encounter Sheree george MD Work Phone: Ophthalmology Comment on above: Schedule Surgery Start: 12-15-2022 End: 12-15-2022 ambulatory SHEREE SCHAFFER V Facility:[facility] Start: 12-15-2022 End: 12-15-2022 Patient encounter procedure Sheree Schaffer MD Work Phone: Ophthalmology Comment on above: Combined forms of ag e-related cataract of both eyes (Primary Dx); Myopia with astigmatism and presbyopia, bilateral Start: 11-22-2022 End: 11-22-2022 [facility] Start: 11-15-2022 ambulatory Francois PAYAN Facility :[facility] Start: 11-08-2022 End: 11-09-2022 ambulatory MARIA D PETERSEN Facility:[facility] Start: 10-31-2022 End: 10-31-2022 ambulatory Barber Penn Arabella ARCHULETA Work Phone: Spine Medicine Comment on above: Chronic right-sided low back pain with right-sided sciatica (Primary Dx); Radiculopathy of lumbar region Start: 10-31-2022 End: 10-31-2022 Telemedicine consultation with patient Barber Snow DO Work Phone: [facility] Start: 10-11-2022 End: 10-12-2022 ambulatory Maria D PETERSEN [facility] Start: 10-11-2022 End: 10-11-2022 Patient encounter procedure Maria D PETERSEN [facility] Start: 10-11-2022 Telephone encounter Barber Penn Arabella ARCHULETA Work Phone: [facility] Comment on above: post injection follo w up Start: 09-27-2022 Telephone encounter Barber Penn Arabella ARCHULETA Work Phone: [facility] Comment on above: Preparations For Pro cedures (Pre-injection call) Start: 09-16-2022 End: 09-16-2022 ambulatory CAMILA Petersen Work Phone: [facility] Work Phone: Start: 09-16-2022 End: 09-16-2022 Discharged Recurring CAMILA Petersen Work Phone: [facility] [address] Start: 08-10-2022 End: 08-10-2022 Subsequent hospital visit by physician Mr Sujata Henderson 2 (Istat/1.5) Work Phone: [facility] Comment on above: Chronic right-sided low back pain with right-sided sciatica [M54.41, G89.29] Start: 07-25-2022 End: 07-25-2022 ambulatory Barber Snow DO Work Phone: Spine Medicine Comment on above: Chronic right-sided low back pain with right-sided sciatica (Primary Dx); Lumbosacral radiculitis; Radiculopathy of lumbar region Start: 07-25-2022 End: 07-25-2022 Telemedicine consultation with patient Barber Snow DO Work Phone: [facility] Start: 07-21-2022 Telephone encounter Barber Snow DO Work Phone: Spine Medicine Comment on above: Orders Start: 05-18-2022 End: 05-18-2022 Patient encounter procedure Barber Snow DO Work Phone: Spine Medicine Comment on above: Acute right-sided lo w back pain with right-sided sciatica (Primary Dx); Lumbosacral radiculitis Start: 12-16-2021 ambulatory NORA PJ Facility : Start: 10-22-2018 End: 10-23-2018 Patient encounter procedure DEFAULT PHYSICIAN Facility:[facility] Start: 10-02-2018 End: 10-03-2018 Patient encounter procedure PROVIDER UNKNOWN Facility:[facility] Start: 09-20-2018 End: 09-21-2018 Patient encounter procedure DEFAULT PHYSICIAN Facility:[facility] Start: 09-12-2018 End: 09-13-2018 Patient encounter procedure DEFAULT PHYSICIAN Facility:[facility] Procedures Date Procedure Procedure Detail Performing Clinician Start: 06-01-2023 Post-cataract laser surgery Sheree Schaffer MD Work Phone: Start: 04-12-2023 History of cataract extraction Status post cataract extraction Sheree Cristina MD Work Phone: Start: 12-29-2022 IOL BIOMETRY W/ IOL CALC OU (BOTH EYES) Sheree Schaffer MD Work Phone: Start: 11-08-2022 Lipid 1996 panel - Serum or Plasma Mr (Istat/1.5) Work Phone: Start: 08-10-2022 Mri spinal canal lum bar w/o contrast material Barber Snow DO Work Phone: Back structure, excluding neck (body structure) Francois PAYAN Bilateral cataracts (disorder) Francois PAYAN Placement of stent i n coronary artery Francois PAYAN Plan of Treatment Date Care Activity Detail Author Start: 11-09-2027 Lipid 1996 panel - S jake or Plasma Lipid Screening [facility] Start: 11-09-2027 Lipid panel Lipid Screening [facility] Start: 11-09-2027 LIPID SCREEN LIPID SCREEN [facility] Start: 08-01-2026 Urine microalbumin profile [facility] Start: 10-18-2025 DIABETES SCREEN DIABETES SCREEN [facility] Start: 10-18-2025 Diabetes Screening Diabetes Screenin g [facility] Start: 03-17-2024 Influenza vaccination Influenz a Vaccine (Season Ended) [facility] Start: 03-01-2024 BP CONTROLLED (<130/80) BP CONTROLLE D (<130/80) [facility] Start: 12-30-2023 BP CONTROLLED (<130/80) BP CONTROLLE D (<130/80) [facility] Start: 12-15-2023 End: 06-07-2024 IOL BIOMETRY W/ IOL CALC OU (BOTH EYES) IOL BIOMETRY W/ IOL CALC OU (BOTH EYES) OPHT Imaging Routine Combined forms of age-related cataract of both eyes Expected: 12/15/2023, Expires: 06/07/2024 [facility] Work Phone: Comment on above: Expected: 12/15/2023 , Expires: 06/07/2024 Start: 07-17-2023 Behavioral Health Screening Behavioral Health Screening [facility] Start: 07-17-2023 [facility] Start: 03-17-2023 Covid-19 Vaccine ( season) Covid-19 Vaccine () [facility] Start: 03-17-2023 Influenza vaccination C [facility] Start: 08-16-2022 SHINGRIX VACCINE (2 of 2) SHINGRIX VACCINE (2 of 2) [facility] Start: 07-17-2022 DEPRESSION ASSESSMENT DEPRESSION ASS ESSMENT [facility] Start: 03-17-2022 Influenza vaccination INFLUENZA (#1) [facility] Start: 07-17-2021 DEPRESSION ASSESSMENT DEPRESSION ASS ESSMENT [facility] Start: 07-06-2021 COVID-19 VACCINE (4 - Booster for Moderna series) COVID-19 VACCINE (4 - Booster for Moderna series) [facility] Start: 2021 RSV Vaccine (1 - 1-d ose 60+ series) RSV Vaccine (1 - 1-dose 60+ series) [facility] Start: 2016 PROSTATE CANCER SCREENING DISCUSSION PROSTATE CANCER SCREENING DISCUSSION [facility] Start: 2016 Prostate specific antigen measurement Prostate Cancer Screening Discussion [facility] Start: 2011 SHINGRIX VACCINE (1 of 2) SHINGRIX VACCINE (1 of 2) [facility] Start: 2006 COLOGUARD (FIT-DNA) COLOGUARD (FIT-D NA) [facility] Start: 2006 Colonoscopy COLONOSCOPY [facility] Start: 2006 COLORECTAL CANCER SCREENING COLORECTAL CANCER SCREENING [facility] Start: [address] COLONOGRAPHY [facility] Start: 2006 DIABETES SCREEN DIABETES SCREEN [facility] Start: 2006 FECAL OCCULT BLOOD FECAL OCCULT BLOO D [facility] Start: 2006 Screening for malign ant neoplasm of colon [facility] Start: 2006 SIGMOIDOSCOPY SIGMOIDOSCOPY [facility] Start: 1996 LIPID SCREEN LIPID SCREEN [facility] Start: 1980 Urine microalbumin profile DTAP,TDAP,TD (1 - Tdap) [facility] Start: 1979 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 Start: 1979 HIV SCREENING HIV SCREENING [facility] Start: 1979 HIV screening HIV Screening [facility] Start: 1979 SPIROMETRY SPIROMETRY [facility] Start: 1967 PNEUMOCOCCAL (1 - PCV) PNEUMOCOCCAL (1 - PCV) [facility] End: 05-31-2024 CORNEAL TOPOGRAPHY PENTACAM OU (BOTH EYES) CORNEAL TOPOGRAPHY PENTACAM OU (BOTH EYES) OPHT Imaging Routine Combined forms of age-related cataract of both eyes 1 Occurrences starting 12/08/2022 until 05/31/2024 [facility] Work Phone: Comment on above: 1 Occurrences starti ng 12/08/2022 until 05/31/2024 End: 05-31-2024 OCT MACULA CIRRUS OU (BOTH EYES) OCT MACULA CIRRUS OU (BOTH EYES) OPHT Imaging Routine Combined forms of age-related cataract of both eyes 1 Occurrences starting 12/08/2022 until 05/31/2024 [facility] Work Phone: Comment on above: 1 Occurrences starti ng 12/08/2022 until 05/31/2024 [facility] Immunizations Immunization Date Immunization Notes Care Provider Catrachito garza 06-21-2022 pneumococcal (PCV20) vaccine, 20 valent (PREVNAR 20) Pacc 2 Work Phone: [facility] 06-21-2022 zoster vaccine recombinant Pacc 2 Work Phone: [facility] 05-31-2022 influenza virus vaccine, unspecified formulation Francois PAYAN [facility] 05-31-2022 influenza, injectabl e, quadrivalent, preservative free Pacc 2 Work Phone: [facility] 05-31-2022 SARS-CoV-2 (COVID-19 ) [id number] Francois PAYAN [facility] 05-11-2021 SARS-CoV-2 (COVID-19 ) mRNA-1273 vaccine Francois PAYAN [facility] Comment on above: Result Comment: 2022: [id number] 11-12-2020 SARS-CoV-2 (COVID-19 ) mRNA-1273 vaccine Francois PAYAN [facility] 10-19-2020 SARS-CoV-2 (COVID-19 ) mRNA-1273 vaccine Francois PAYAN [facility] 05-24-2018 influenza virus vaccine, unspecified formulation Francois PAYAN [facility] 05-24-2018 influenza, injectabl e, quadrivalent, preservative free Pacc 2 Work Phone: [facility] 08-01-2016 tetanus toxoid, redu yonis diphtheria toxoid, and acellular pertussis vaccine, adsorbed Pacc 2 Work Phone: [facility] 07-21-2016 influenza virus vaccine, unspecified formulation Francois PAYAN [facility] 07-21-2016 influenza, injectabl e, quadrivalent, contains preservative Pacc 2 Work Phone: [facility] Payers Date Payer Category Payer Unknown [id number] 2022 Unknown [id number] 2022 Self-pay [id number] 2021 Unknown 2006 Private Health Insurance [id number] 1960 Unknown [id number] 1960 Unknown [id number] 1961 Unknown [id number] [id number] 1961 Unknown [id number] [id number] 1961 Unknown [id number] [id number] 1961 Unknown [id number] [id number] 1961 Unknown [id number] [id number] 1961 Unknown [id number] 2.16.840.1.005512.3.579.2.727 1961 Unknown [id number] [id number] 1961 Unknown [id number] 2.16.840.1.444874.3.579.2.727 1961 Unknown [id number] 2.16.840.1.376656.3.579.2.1259 1961 Unknown [id number] 2.16.840.1.965256.3.579.2.1259 1961 Unknown [id number] 2.16.840.1.118806.3.579.2.1259 1959 Self-pay [id number] 1959 Unknown [id number] Unknown [id number] Unknown [facility] Netk Access [id number] Unknown [id number] Social History Date Type Detail Facility Start: 05-18-2022 End: 12-29-2022 Tobacco smoking status NHIS Ex-smoker [facility] End: 07-17-2001 History of tobacco use Current smoker [facility] End: 07-17-2001 History of tobacco use Cigarette Smoker [facility] Start: 05-18-2022 End: 12-15-2022 Cigarettes smoked current (pack per day) - Reported 1 [facility] Start: 05-18-2022 End: 12-29-2022 Tobacco use and exposure Smokeless tobacco non-user [facility] Start: 05-18-2022 End: 12-15-2022 Alcohol intake Current drinker of alcohol (finding) [facility] Start: 1960 Sex Assigned At Not on file C [facility] Start: 05-08-2022 End: 05-18-2022 Exposure to SARS-CoV-2 (event) Not sure [facility] Tobacco Past, Cigarettes [facility] Tobacco smoking status No Smokin g Status Entered [facility] Start: 12-15-2022 End: 03-08-2023 Sex Assigned At Male [facility] Start: 1960 Sex Assigned At Male F [facility] Start: 12-29-2022 End: 10-25-2023 Alcohol intake Ex-drinker (finding) [facility] Start: 12-29-2022 Alcohol Comment 5 drinks per w [place], sometimes more [facility] Adult Depression Screening Assessment 0 [facility] Medical Equipment Procedure Code Equipment Code Equipment Origin al Text Equipment Identifier Dates [employer] +21d [id number] Start: 01-11-2023 Comment on above: Description: -1.41 [employer]ol +20.5d [id number] Start: 03-08-2023 Comment on above: Description: -0.20 Functional Status Date Assessment Result Facility 03-13-2023 Functional Status N/A [facility] Jennifer Clinical Notes 05-18-2022 to 10-25-2023 Addendum Note - Nicole Ryan OD - 10/25/2023 3:14 PM EDTPatient Nicole Byrnes OD - 10/25/2023 2:57 PM EDTLNicole alves OD - 06/01/2023 2:00 PM EST Note Date & Type Note Facility 10-25-2023 Note HNO ID: [id number] Author: NICOLE RYAN OD Service: ? Author Type: RESOURCE FORESTER Type: Progress Notes Filed: 10/25/2023 15:09 Note Text: ASSESSMENT/PLAN: 1. Keratoconjunctivitis sicca of both eyes not specified as Sjogren's - ICD9: 370.33, ICD10: H16.223 (primary diagnosis) 2. 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 of both eyes - ICD9: 373.00, ICD10: H02.88A, H02.88B Pt ed Plan maintenance for custodial carte Start Warm/Hot compresses once a day x 10-15 min Lid scrubs daily Maxitrol ointment to lash line at bedtime x 1 tube Artificial Tears for comfort 3. Pinguecula of left eye - ICD9: 372.51, ICD10: H11.152 4. Pterygium, right - ICD9: 372.40, ICD10: H11.001 Presence of Ping and Pteryg speaks to chronicity of MANDY 5. Pseudophakia of both eyes - ICD9: V43.1, ICD10: Z96.1 6. History of YAG laser capsulotomy of lens, left - ICD9: V45.61, ICD10: Z98.42 Doing well Had done post-op primarily with Dr Breen October 25, 2023 2:57 PM [facility] 10-25-2023 Miscellaneous Notes Addended by: NICOLE RYAN on: 10/25/2023 03:14 PM Modules accepted: Orders documented in this encounter [facility] 10-25-2023 Instructions Nicole Ryan OD - 10/25/2023 3:09 PM EDT Warm/Hot compresses once a day x 10-15 min (Ned Mask or TheraPearls Mask) Lid scrubs daily (OcuSoft, SteriLids , or baby Shampoo) Maxitrol ointment to lash line at bedtime x 1 tube Artificial Tears for comfort 3-4 times RECOMMENDED ARTIFICIAL TEARS Preserved Artificial Tears (in bottles): Theratears Extra Systane Ultra or Systane Complete Refresh NIC-3 or Refresh Digital Systane Balance Refresh Optive Advanced Soothe XP Genteal (mild or moderate) Refresh Liquigel (thicker) Systane Geldrops (thicker) Preservative-Free Artificial Tears (in single-dose droperettes): Systane Ultra - Preservative-Free Refresh Optive Sensitive TheraTears Extra - Preservative-Free Refresh Optive Advanced Preservative-Free Refresh Plus Tears Naturale Free TheraTears Liquid Gel (thicker) Refresh Celluvisc (thicker) Ointments and gels (in tubes): Systane Nighttime Refresh PM Ointment Genteal Gel Severe Dry Eye Relief Refresh Lacrilube TheraPearl Eye Mask or Ned Mask can be used to provide sustained heat to the eyelids. Thinner drops blur vision less but do not last as long. Thicker drops, ointments and gels last longer, but will blur vision more. documented in this encounter [facility] 10-25-2023 History of Present illness Narrative ASSESSMENT/PLAN: 1. Keratoconjunctivitis sicca of both eyes not specified as Sjogren's - ICD9: 370.33, ICD10: H16.223 (primary diagnosis) 2. 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 of both eyes - ICD9: 373.00, ICD10: H02.88A, H02.88B Pt ed Plan maintenance for long term acute care registered nurse carte Start Warm/Hot compresses once a day x 10-15 min Lid scrubs daily Maxitrol ointment to lash line at bedtime x 1 tube Artificial Tears for comfort 3. Pinguecula of left eye - ICD9: 372.51, ICD10: H11.152 4. Pterygium, right - ICD9: 372.40, ICD10: H11.001 Presence of Ping and Pteryg speaks to chronicity of MANDY 5. Pseudophakia of both eyes - ICD9: V43.1, ICD10: Z96.1 6. History of YAG laser capsulotomy of lens, left - ICD9: V45.61, ICD10: Z98.42 Doing well Had done post-op primarily with Dr Breen October 25, 2023 2:57 PM documented in this encounter [facility] 09-20-2023 Miscellaneous Notes Scheduled as requested. Hi, Please schedule the following appointment. Patient: Darius Thacker Provider:Dr. Barber Snow Date: 10/02/2023 Time: 430 PM [place] schedule Visit Type: Virtual (visualized on screen) Established Visit follow up Imaging needed prior to schedule: No Patient is aware: Yes Thank you! Alesha Marcos RN Forwarded to [place] [facility]er[facility] scheduling. Made a temporary hold on 10/01 at 430 PM for VV. It is on the [place] schedule. documented in this encounter [facility] 06-27-2023 Note OR Cardiology - [facility] Subjective Darius Thacker is a 63 y.o. year old male patient being seen for 1 mo follow up echo and lab results. At last visit, furosemide was stopped and metoprolol was decreased to 25mg daily. A week later he called with continued dizziness so lisinopril was also stopped. This has helped and dizziness is much better. Denies recurrent near-syncope/syncope. Denies chest pain and LE edema. Patient Active Problem List Diagnosis Acute Q wave myocardial infarction (CMS/HCC) Acute renal impairment Asthma Coronary arteriosclerosis Diverticulosis Dyspnea Edema of lower extremity Elevated liver enzymes Eruption due to drug Fracture, ankle Generalized ischemic myocardial dysfunction Hypertriglyceridemia Kidney stones Lumbar transverse process fracture (CMS/HCC) JOSE (obstructive sleep apnea) Osteoarthritis Lumbosacral neuritis Heart failure (CMS/HCC) Essential (primary) hypertension GERD (gastroesophageal reflux disease) Keratoconjunctivitis sicca of both eyes not specified as Sjogren's Prostate cancer screening Status post cataract extraction Superficial keratitis of right eye Family History Problem Relation Name Age of Onset Leukemia Mother Diabetes Father Heart attack Father Social History Tobacco Use Smoking status: Never Smokeless tobacco: Never Substance Use Topics Alcohol use: Yes Comment: moderate HPI Mr Thacker is seen in follow up on CAD, LAD VT treated by stenting (02/2015) and systolic heart failure. His echocardiogram on 04/14/2015 and 01/05/2016 showed improvement in EF to 40%. His echocardiogram in 2019 showed an LVEF of 35%. A MUGA scan in 2019 showed an LVEF of 43%. We had stopped brilinta at a prior visit. In the past he had acute renal insufficiency after being on spironolactone that resolved after stopping it. Prior renal duplex ultrasound did not show significant renal artery stenosis. He was seen in 01/2023 in clinic and started on spironolactone. Follow-up BMP showed normal renal function. he was most recently evaluated on 05/19/2023 because of 2 episodes of syncope while walking. I had stopped furosemide. Also due to low blood pressure I stopped lisinopril. Since then he has had no recurrence of dizziness or syncope. He has mild shortness of breath on exertion NYHA class II. No leg swelling. No chest pain. Review of Systems Cardiovascular: Positive for dyspnea on exertion and palpitations. Musculoskeletal: Positive for neck pain. Neurological: Positive for headaches. All other systems reviewed and are negative. Objective Visit Vitals BP 118/78 (BP Location: Left arm, Patient Position: Sitting) Pulse 80 Ht 1.778 m (5' 10 ) Wt 85.3 kg (188 lb) SpO2 93% BMI 26.98 kg/m??? Smoking Status Never BSA 2.05 m??? Physical Exam Constitutional: Appearance: He is well-developed. He is not ill-appearing. HENT: Head: Normocephalic and atraumatic. Nose: Nose normal. Eyes: General: No scleral icterus. Pupils: Pupils are equal, round, and reactive to light. Neck: Thyroid: No thyromegaly. Vascular: No JVD. Cardiovascular: Rate and Rhythm: Normal rate and regular rhythm. Pulses: Radial pulses are 2+ on the right side and 2+ on the left side. Heart sounds: Normal heart sounds. No murmur heard. No friction rub. No gallop. Pulmonary: Effort: Pulmonary effort is normal. No respiratory distress. Breath sounds: Normal breath sounds. No wheezing or rales. Chest: Chest wall: No tenderness. Abdominal: General: Bowel sounds are normal. There is no distension. Palpations: Abdomen is soft. Tenderness: There is no abdominal tenderness. Musculoskeletal: General: No swelling. Cervical back: Neck supple. Skin: General: Skin is warm and dry. Neurological: General: No focal deficit present. Mental Status: He is alert and oriented to person, place, and time. Psychiatric: Mood and Affect: Mood normal. Behavior: Behavior is cooperative. Judgment: Judgment normal. Allergies Allergies Allergen Reactions Atorvastatin Medications Current Outpatient Medications: aspirin 81 mg chewable tablet, Chew 1 tablet (81 mg) in the morning., Disp: 90 tablet, Rfl: 3 dapagliflozin propanediol (Farxiga) 10 mg, Take 1 tablet (10 mg) by mouth in the morning., Disp: 90 tablet, Rfl: 3 desvenlafaxine (Pristiq) 50 mg 24 hr tablet, Take 1 tablet by mouth in the morning., Disp: , Rfl: gemfibrozil (Lopid) 600 mg tablet, Take 1 tablet (600 mg) by mouth in the morning and at bedtime., Disp: 180 tablet, Rfl: 3 metoprolol succinate XL (Toprol-XL) 25 mg 24 hr tablet, Take 1 tablet (25 mg) by mouth once daily as directed. Do not crush or chew., Disp: 90 tablet, Rfl: 3 omeprazole (PriLOSEC) [address] capsule, Take 2 capsules (40 mg) by mouth once daily as directed., Disp: 180 capsule, Rfl: 3 rosuvastatin (Crestor) 40 mg tablet, Take 1 tablet (40 mg) by mouth at bedtime., Di (more content not included)... [facility] 06-01-2023 Note HNO ID: [id number] Author: Nicole Ryan OD Service: ? Author Type: RESOURCE FORESTER Type: Progress Notes Filed: 06/01/2023 2:27 PM Note Text: ASSESSMENT/PLAN: 1. Left posterior capsular opacification - ICD9: 366.50, ICD10: H26.492 (primary diagnosis) 2. Pseudophakia of both eyes - ICD9: V43.1, ICD10: Z96.1 Dr Sheree HALL evaluation OS today I have confirmed and edited as necessary the relevant ophthalmic history, ROS, and the exam findings as obtained by others. I have seen and examined this patient. I also have reviewed and agree with the assessment and plan as stated above and agree with all of its relevant components. Nicole Ryan OD June 01, 2023 2:00 PM [facility] 06-01-2023 History of Present illness Narrative ASSESSMENT/PLAN: 1. Left posterior capsular opacification - ICD9: 366.50, ICD10: H26.492 (primary diagnosis) 2. Pseudophakia of both eyes - ICD9: V43.1, ICD10: Z96.1 Dr Sheree HALL evaluation OS today I have confirmed and edited as necessary the relevant ophthalmic history, ROS, and the exam findings as obtained by others. I have seen and examined this patient. I also have reviewed and agree with the assessment and plan as stated above and agree with all of its relevant components. Nicole Ryan OD June 01, 2023 2:00 PM documented in this encounter [facility] 05-19-2023 Note OR Cardiology - [facility] Subjective Darius Thacker is a 63 y.o. year old male patient being seen for blackout last week. He does get lightheaded leading up to episodes. This has happened a few times over the past month or so. He also has palpitations and SOB w/ episodes. He states he's lightheaded today in the office. Patient Active Problem List Diagnosis Acute Q wave myocardial infarction (CMS/HCC) Acute renal impairment Asthma Coronary arteriosclerosis Diverticulosis Dyspnea Edema of lower extremity Elevated liver enzymes Eruption due to drug Fracture, ankle Generalized ischemic myocardial dysfunction Hypertriglyceridemia Kidney stones Lumbar transverse process fracture (CMS/HCC) JOSE (obstructive sleep apnea) Osteoarthritis Lumbosacral neuritis Heart failure (CMS/HCC) Essential (primary) hypertension GERD (gastroesophageal reflux disease) Keratoconjunctivitis sicca of both eyes not specified as Sjogren's Prostate cancer screening Status post cataract extraction Superficial keratitis of right eye Family History Problem Relation Name Age of Onset Leukemia Mother Diabetes Father Heart attack Father Social History Tobacco Use Smoking status: Never Smokeless tobacco: Never Substance Use Topics Alcohol use: Yes Comment: moderate HPI Mr Thacker is seen in follow up on CAD, LAD VT treated by stenting (02/2015) and systolic heart failure. His echocardiogram on 04/14/2015 and 01/05/2016 showed improvement in EF to 40%. His echocardiogram in 2018 showed an LVEF of 35%. A MUGA scan in 2019 showed an LVEF of 43%. We had stopped brilinta at a prior visit. In the past he had acute renal insufficiency after being on spironolactone that resolved after stopping it. Prior renal duplex ultrasound did not show significant renal artery stenosis. He was seen in 01/2023 in clinic and started on spironolactone. Follow-up BMP showed normal renal function. He has been free from chest pain. He has some shortness of breath on exertion. His main issue is dizziness and lightheadedness upon standing. And he has had 1 or 2 episodes of syncope 1 time when walking 2 [address] his house. He completely passed out and another time in the middle of the night when he was going to the bathroom. He has no lower extremity edema. He is currently taking furosemide 20 mg every other day. Review of Systems Cardiovascular: Positive for dyspnea on exertion, near-syncope, palpitations and syncope. Musculoskeletal: Positive for neck pain. Neurological: Positive for dizziness, headaches and light-headedness. All other systems reviewed and are negative. Objective Visit Vitals BP 95/64 (BP Location: Left arm, Patient Position: Standing) Pulse 80 Ht 1.778 m (5' 10 ) Wt 85.7 kg (189 lb) SpO2 93% BMI 27.12 kg/m??? Smoking Status Never BSA 2.06 m??? Physical Exam Constitutional: Appearance: He is well-developed. He is not ill-appearing. HENT: Head: Normocephalic and atraumatic. Nose: Nose normal. Eyes: General: No scleral icterus. Pupils: Pupils are equal, round, and reactive to light. Neck: Thyroid: No thyromegaly. Vascular: No JVD. Cardiovascular: Rate and Rhythm: Normal rate and regular rhythm. Pulses: Radial pulses are 2+ on the right side and 2+ on the left side. Heart sounds: Normal heart sounds. No murmur heard. No friction rub. No gallop. Pulmonary: Effort: Pulmonary effort is normal. No respiratory distress. Breath sounds: Normal breath sounds. No wheezing or rales. Chest: Chest wall: No tenderness. Abdominal: General: Bowel sounds are normal. There is no distension. Palpations: Abdomen is soft. Tenderness: There is no abdominal tenderness. Musculoskeletal: General: No swelling. Cervical back: Neck supple. Skin: General: Skin is warm and dry. Neurological: General: No focal deficit present. Mental Status: He is alert and oriented to person, place, and time. Psychiatric: Mood and Affect: Mood normal. Behavior: Behavior is cooperative. Judgment: Judgment normal. Allergies Allergies Allergen Reactions Atorvastatin Medications Current Outpatient Medications: aspirin 81 mg chewable tablet, Chew 1 tablet (81 mg) in the morning., Disp: 90 tablet, Rfl: 3 dapagliflozin propanediol (Farxiga) 10 mg, Take 1 tablet (10 mg) by mouth in the morning., Disp: 90 tablet, Rfl: 3 desvenlafaxine (Pristiq) 50 mg 24 hr tablet, Take 1 tablet by mouth in the morning., Disp: , Rfl: gemfibrozil (Lopid) 600 mg tablet, Take 1 tablet (600 mg) by mouth in the morning and at bedtime., Disp: 180 tablet, Rfl: 3 lisinopril 10 mg tablet, Take 1 tablet (10 mg) by mouth in the morning., Disp: 90 tablet, Rfl: 3 omeprazole (PriLOSEC) [address] capsule, Take 2 capsules (40 mg) by mouth once daily as directed., Disp: 180 capsule, Rfl: 3 rosuvastatin (Crestor) 40 mg tablet, Take 1 tablet (40 mg) by mouth at bedtime., Disp: (more content not included)... [facility] 04-20-2023 Note HNO ID: [id number] Author: Arturo Tejada, OD Service: ? Author Type: RESOURCE FORESTER Type: Progress Notes Filed: 04/20/2023 12:24 PM Note Text: (H16.101) Superficial keratitis of right eye (primary encounter diagnosis) Comment: responded well to treatment Plan: advised to continue artificial tears tid-qid OU (Z98.49) Status post cataract extraction, unspecified laterality Comment: very good result pt happy with vision Plan: monitor (H16.223) Keratoconjunctivitis sicca of both eyes not specified as Sjogren's Comment: moderate OU with rapid TBUT 2/2 oral Lasix use every other day Plan: continue lubrication can restart gel qhs if needed FULL in 12 months or prn I have confirmed and edited as necessary the relevant ophthalmic history, ROS, and the neuro exam findings as obtained by others. I have seen and examined this patient. I have discussed the case and the management of this patient's care with the Resident/Fellow, if applicable. I also have reviewed and agree with the assessment and plan as stated above and agree with all of its relevant components. Arturo Tejada, OD April 20, 2023 12:23 PM [facility] 04-12-2023 Note HNO ID: [id number] Author: Arturo Tejada, OD Service: ? 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 I have seen and examined this patient. I have discussed the case and the management of this patient's care with the Resident/Fellow, if applicable. I also have reviewed and agree with the assessment and plan as stated above and agree with all of its relevant components. Arturo Tejada, OD April 12, 2023 12:24 PM [facility] 03-13-2023 Note Chief Complaint Referral *Renal Cyst HPI Staff Evaluation requested by Dr Rosaura Moseley due to Renal Cyst. Pt is a new pt. Never before seen in our office. TERRY 10/11/22 CMP/CBC 11/08/22 PSA 10/18/22- 0.72 Hx of Back pain. Did MRI of spine 08/10/22. Cyst was found. TERRY was ordered. Denies Hx of flank pain. Denies Hx of Visible blood in urine. Denies Family Hx of Kidney/Prostate/Bladder Cancer. Former Smoker. Hx of Kidney Stones when he was 19. Passed on own. Usually 2x/night. Denies all other urinary complaints. History of Present Illness Tests reviewed: reviewed UA, referral records I have reviewed the previous health record information and history for this patient from external providers_. I have reviewed and verified the staff HPI to be accurate for this encounter. There have been no associated fever, chills, flank pain, or blood in the urine. Denies any urinary infections since last encounter. Review of Systems PHQ Score Initial Depression Screen Score: 0 ROS - Provider Constitutional: denies weight loss, denies hot flashes. Eyes: denies eye problems. Gastrointestinal: denies nausea, denies vomiting. Cardiovascular: denies chest pain or angina. Integumentary: no dryness Musculoskeletal: denies musculoskeletal symptoms. ENMT: denies otolaryngeal symptoms. Respiratory: no shortness of breath. Heme/Lymph: denies easy bleeding tendency, denies easy bruising tendency. Psychiatric: no confusion, no anxiety. Genitourinary: See HPI. Physical Exam Vitals & Measurements HT: 70 in HT: 178 cm WT: 82.5 kg WT: 181.5 lb BMI: 26.04 General Appearance: alert, no distress, well nourished, well developed male. Head: normocephalic . Eyes: normal orbit and globe. ENMT: normal examination of external ears. Chest: Lungs CTA, respirations non labored. Cardiovascular: regular rate and rhythm. Abdomen: soft, non distended, no tenderness, no mass or organomegaly, no hernia. Genitourinary: normal scrotum, normal testes, normal urethra, normal epididymis, normal vas deferens/spermatic cord. Flank Pain: none. Bladder: nonpalpable. Penis: normal shaft, normal glans. Lymph Nodes: unremarkable palpation of the cervical area. Skin: warm, dry, no bruising. Psychiatric: cooperative, affect appropriate for age, normal judgement, euthymic mood. Assessment/Plan New pt referred by Dr. Rosaura Moseley for renal cyst. 1. Renal cyst (N28.1: Cyst of kidney, acquired) MRI Lumbar spine wo con 08/10/22 due to hx of back pain - large right upper pole renal cyst and a smaller left inferior pole renal cyst. Renal US 10/11/22 - large partially exophytic cyst involving mid and superior R kidney, measuring about 7.1 x 4.5 x 7.1 cm, and a 1.5 cm cyst involving cortex of medial inferior L kidney. No septations on personal review of US. CMP 11/08/22 - kidney function wnl. Explained to pt simple vs complex renal cysts and preferable sizes. Pt understands his renal cysts appear to be simple by mri and echo. UA today negative for blood and infection. Follow up with renal US in 1 year or sooner if needed. All questions/concerns were discussed. Pt to call the office if he encounters any issues prior. Pt acknowledges understanding. 2. Prostate cancer screening (Z12.5: Encounter for screening for malignant neoplasm of prostate) PSA 03/16/15 - 0.6 10/18/22 - 0.72 Denies family hx of prostate ca. Pt states he gets up 2x/night but admits to drinking a lot of water. Denies any bothersome urinary sxs at this time. Follow-up With When Contact Information ORA MILLER, Francois George, RAQUEL In 1 year [facility] [address], [place] [address]- [phone] Additional Instructions: Renal US Patient Education Renal Mass I, Marci Rangel, personally scribed for Dr. Payan on 03/13/2023 15:57:48. . Documentation recorded by the scribe, Marci Rangel, accurately reflects the services(s) I performed and decisions made by me. Authenticated by Dr. Payan on 03/13/2023 16:00:48. Problem List/Past Medical History Ongoing GERD (gastroesophageal reflux disease) Hypercholesterolemia Hypertension Prostate cancer screening Renal cyst Historical Anxiety Cholesterol Procedure/Surgical History Back, Cataracts, Insertion of coronary artery stent. Medications aspirin, 81 mg, Oral, Daily FUROSEMIDE 20 MG TABS, 0 gemfibrozil, 600 mg, Oral, BID Lasix, 20 mg, Oral, Every other day lisinopril, 10 mg, Oral, Daily Metoprolol succinate 50 mg ER Tablet, 50 mg, Oral, Daily Prilosec, 20 mg, Oral, BID rosuvastatin, 20 mg, Oral, Daily spironolactone 25 mg Tab Allergies No Known Allergies Social History Tobacco Former smoker, quit more than 30 days ago Tobacco Use:. Never Smokeless Tobacco Use:. Cigarettes, Household tobacco concerns: No. Yes, 03/13/2023 Past, Cigarettes, 11/16/2010 Family History Family history is negative Immunizations Vaccine (more content not included)... [facility] Comment on above: Result Comment: Elec tronically Signed By: Francois PAYAN MD\.br\Date and Time Signed: 03/13/23 16:00 EDT\.br\Electronically Co-Signed By: Marci Rangel\.br\Date and Time Co-Signed: 03/13/23 15:58 EDT 03-13-2023 Hospital Discharge instructions Patient Education 03/13/2023 15:45:46 Renal Mass Renal Mass A renal mass is an abnormal growth in the kidney. It may be found while performing an MRI, CT scan, or ultrasound to evaluate other problems of the abdomen. A renal mass that is cancerous (malignant) may grow or spread quickly. Others are not cancerous (benign). Renal masses include: Tumors. These may be malignant or benign. ?The most common type of kidney cancer in adults is renal cell carcinoma. In children, the most common type of kidney cancer is Wilms tumor. ?The most common benign tumors of the kidney include renal adenomas, oncocytomas, and angiomyolipoma (AML). Cysts. These are fluid-filled sacs that form on or in the kidney. What are the causes? Certain types of cancers, infections, or injuries can cause a renal mass. It is not always known what causes a cyst to develop in or on the kidney. What are the signs or symptoms? Often, a renal mass does not cause any signs or symptoms; most kidney cysts do not cause symptoms. How is this diagnosed? Your health care provider may recommend tests to diagnose the cause of your renal mass. These tests may be done if a renal mass is found: Physical exam. Blood tests. Urine tests. Imaging tests, such as ultrasound, CT scan, or MRI. Biopsy. This is a small sample that is removed from the renal mass and tested in a lab. The exact tests and how often they are done will depend on: The size and appearance of the renal mass. Risk factors or medical conditions that increase your risk for problems. Any symptoms associated with the renal mass, or concerns that you have about it. Tests and physical exams may be done once, or they may be done regularly for a period of time. Tests and exams that are done regularly will help monitor whether the mass is growing and beginning to cause problems. How is this treated? Treatment is not always needed for this condition. Your health care provider may recommend careful monitoring and regular tests and exams. Treatment will depend on the cause of the mass. Treatment for a cancerous renal mass may include surgical removal, chemotherapy, radiation, or immunotherapy. Most kidney cysts do not need to be treated. Follow these instructions at home: What you need to do at home will depend on the cause of the mass. Follow the instructions that your health care provider gives to you. In general: Take [id number] and prescription medicines only as told by your health care provider. If you were prescribed an antibiotic medicine, take it as told by your health care provider. Do not stop taking the antibiotic even if you start to feel better. Follow any restrictions that are given to you by your health care provider. Keep all follow-up visits. This is important. ?You may need to see your health care provider once or twice a year to have CT scans and ultrasounds. These tests will show if your renal mass has changed or grown. Contact a health care provider if you: Have pain in your side or back (flank pain). Have a fever. Feel full soon after eating. Have pain or swelling in the abdomen. Lose weight. Get help right away if: Your pain gets worse. There is blood in your urine. You cannot urinate. You have chest pain. You have trouble breathing. These symptoms may represent a serious problem that is an emergency. Do not wait to see if the symptoms will go away. Get medical help right away. Call your local emergency services (911 in the [place] Summary A renal mass is an abnormal growth in the kidney. It may be cancerous (malignant) and grow or spread quickly, or it may not be cancerous (benign). Renal masses often do not have any signs or symptoms. Renal masses may be found while performing an MRI, CT scan, or ultrasound for other problems of the abdomen. Your health care provider may recommend that you have tests to diagnose the cause of your renal mass. These may include a physical exam, blood tests, urine tests, imaging, or a biopsy. Treatment is not always needed for this condition. Careful monitoring may be recommended. This information is not intended to replace advice given to you by your health care provider. Make sure you discuss any questions you have with your health care provider. Document Revised: 12/28/2020 Document Reviewed: 12/28/2020 [employer] Patient Education 2022 [employer]. Follow Up Care 11/15/2022 12:05:11 With:ORA MILLER, Francois George, URL Address: [facility] [address] [place] [address] [phone] When:Within 1 Year(s) Comments:Renal [facility] 03-08-2023 Note HNO ID: [id number] Author: Beatriz Figueroa OD Service: ? Author Type: RESOURCE FORESTER Type: Progress Notes Filed: 03/08/2023 11:08 AM Note Text: ASSESSMENT/PLAN: 1. S/P cataract extraction and insertion of intraocular lens, left - ICD9: V45.61, V43.1, ICD10: Z98.42, Z96.1 Refraction prior to 2nd eye sx. Doing well. Excellent refractive outcome. Continue post-op care with Dr. Breen. OD sx today with DAWIT Figueroa OD I have confirmed and edited as necessary the relevant ophthalmic history, ROS, and the exam findings as obtained by others. I have seen and examined this patient. I have discussed the case and the management of this patient's care with the resident or fellow as appropriate. I also have reviewed and agree with the assessment and plan as stated above and agree with all of its relevant components. Beatriz Figueroa OD March 08, 2023 11:08 AM [facility] 03-08-2023 History of Present illness Narrative ASSESSMENT/PLAN: 1. S/P cataract extraction and insertion of intraocular lens, left - ICD9: V45.61, V43.1, ICD10: Z98.42, Z96.1 Refraction prior to 2nd eye sx. Doing well. Excellent refractive outcome. Continue post-op care with Dr. Breen. OD sx today with Beatriz Figueroa OD I have confirmed and edited as necessary the relevant ophthalmic history, ROS, and the exam findings as obtained by others. I have seen and examined this patient. I have discussed the case and the management of this patient's care with the resident or fellow as appropriate. I also have reviewed and agree with the assessment and plan as stated above and agree with all of its relevant components. Beatriz Figueroa OD March 08, 2023 11:08 AM documented in this encounter [facility] 01-30-2023 Note Cardiology Clinic No te Subjective Darius Thacker is a 62 y.o. year old male patient with CAD s/p PCI to LAD and systolic heart failure seen in follow-up. Patient Active Problem List Diagnosis Acute Q wave myocardial infarction (CMS/HCC) Acute renal impairment Asthma Coronary arteriosclerosis Diverticulosis Dyspnea Edema of lower extremity Elevated liver enzymes Eruption due to drug Fracture, ankle Generalized ischemic myocardial dysfunction Hypertriglyceridemia Kidney stones Lumbar transverse process fracture (CMS/HCC) JOSE (obstructive sleep apnea) Osteoarthritis Lumbosacral neuritis Heart failure (CMS/HCC) Essential (primary) hypertension Family History Problem Relation Name Age of Onset Leukemia Mother Diabetes Father Heart attack Father HPI Social History Tobacco Use Smoking status: Never Smokeless tobacco: Never Substance Use Topics Alcohol use: Yes Comment: moderate Mr Thacker is seen in follow up on CAD, LAD VT treated by stenting (02/2015) and systolic heart failure. His echocardiogram on 04/14/2015 and 01/05/2016 showed improvement in EF to 40%. His last echocardiogram in 2018 showed an LVEF of 35%. A MUGA scan in 2019 showed an LVEF of 43%. We had stopped brilinta at a prior visit. He has been well. He has no chest pain. He has no dyspnea on exertion. He has no lower extremity edema. Blood testing 10/28/2020: Cholesterol 181, triglycerides 74, HDL 83, LDL 83. LFTs normal. Lipids 08/03/2018: Chol 212, TG 51, HDL 116, LDL 85. Lipid profile 07/01/2017: HDL >110 TG 94. Lipid profile 03/07/2017: LDL 68 TG 82. Lipid profile 06/14/2016: LDL 82 TG 87. Lipid profile 12/18/2015: LDL 75 TG 101. MUGA scan 10/22/2018: LV ejection fraction 43%. Echocardiogram 10/02/2018: LVEF 35%, regional wall motion abnormalities. Possible layered thrombus in the LV apex. [I had reviewed the echo images and also Dr Caroline Brasher reviewed them as well. We both agreed that there is no thrombus.] Echocardiogram on 01/05/2016: LVEF 40%, RVSP 22 mmHg. No valvular abnormalities. No change since 06/22/2015 visit: He had myocardial infarction related to LAD thrombotic occlusion and underwent emergent stenting of the LAD with a drug eluting stent on 02/25/2015. His EF was 25-30% and improved to 35% on 03/17/2015. He was on Lipitor and that caused rash. This was changed to crestor 5 mg daily which seems to be ok for him, and this was increased to 10 mg daily. His lipid profile on 03/16/2015: LDL 98; HDL 49; TG 404; Previously I had added aldactone 25 mg daily, increased crestor to 10 mg daily, and added lopid 600 mg twice daily. His BMP on 04/14/2015 showed creatinine of 2.09 and BUN of 22; both were normal in February. K was 4.6, Na 134. I repeated BMP after stopping aldactone and this showed normalization of renal function. His renal duplex ultrasound did not show significant renal artery stenosis. 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 Update: 11/22/2022 He reports he has been doing well without cardiac concerns. He stays active, denies chest pain, shortness of breath, palpitations, or lower extremity edema. Update: 01/30/2023 He continues to do well, no cardiac concerns at this time. He denies chest pain, dyspnea on exertion or palpitations. Lower extremity edema is well controlled with Lasix which he takes every other day. Review of Systems Cardiovascular: Negative for chest pain, claudication, dyspnea on exertion, irregular heartbeat, leg swelling, near-syncope, orthopnea, palpitations, paroxysmal nocturnal dyspnea and syncope. Objective Visit Vitals BP 115/76 (BP Location: Left arm, Patient Position: Sitting, BP Cuff Size: Large adult) Pulse 62 Ht 1.778 m (5' 10 ) Wt 84.4 kg (186 lb) SpO2 96% BMI 26.69 kg/m??? Smoking Status Never BSA 2.04 m??? Physical Exam General: Awake, alert, good spirits. NAD Pulm: Breath sounds clear to ascultation bilaterally with no wheeze, crackles or rhonchi Cards: Regular rate and rhythm, S1, S2. No S3 or S4 gallop. Murmur: none Abd: Soft, Nontender, physiologic bowel sounds are present Extr: Lower extremity edema: None. DP pulses:2+ Skin: warm, dry, well perfused Neuro: A&Ox3, No gross deficits Allergies Allergies Allergen Reactions Atorvastatin Medications Current Outpatient Medications: aspirin 81 mg chewable tablet, Chew 1 tablet (81 mg) in the morning., Disp: 90 tablet, Rfl: 3 atorvastatin (Lipitor) 80 mg tablet, Take 80 mg by mouth in the morning., Disp: , Rfl: desvenlafaxine (Pristiq) 50 mg 24 hr tablet, Take 1 tablet by mouth in the morning., Disp: , Rfl: furosemide (Lasix) 20 mg tablet, Take 1 tablet (20 mg) by mouth every other day., Disp: 45 tablet, Rfl: 3 gemfibrozil (Lopid) 600 mg tablet, Take 1 tablet (600 mg) by mouth in the morning and at bedtime., Disp: 180 tablet, Rfl: 3 lisinopril 10 mg tablet, Take 1 tablet (10 mg) by (more content not included)... [facility] 01-13-2023 Miscellaneous Notes Patient states he is scared the small bottle he got the day of surgery is not going to last so he wants a refill, I explained how it works but he insist on getting a refill sent to the pharmacy just in case. Patient has been reminded to check with pharmacy 24 to 48hr after request. Pt is identified by name and birthdate: Yes Patient phones requesting refills as follows: Requested Prescriptions Pending Prescriptions Disp Refills keTORolac (ACULAR) 0.5 % ophthalmic solution 5 mL 0 Sig: USE DIRECTED BY PHYSICIAN, IN OPERATIVE EYE, BEGINNING ONE DAY AFTER SURGERY prednisoLONE acetate (PRED FORTE) 1 % ophthalmic suspension 5 mL 0 Sig: USE DIRECTED BY PHYSICIAN, IN OPERATIVE EYE, BEGINNING ONE DAY AFTER SURGERY Please review and advise. documented in this encounter [facility] 12-29-2022 Note HNO ID: [id number] Author: SARTHAK Aguilar Service: ? Author Type: Recyclable Products Sorter Type: Progress Notes Filed: 12/29/2022 2:09 PM Note Text: CONFIRM AIM INTERMEDIATE DISTANCE LEFT EYE. AIM -1.50 LEFT EYE. SARTHAK Aguilar [facility] 12-29-2022 History of Present illness Narrative CONFIRM AIM INTERMEDIATE DISTANCE LEFT EYE. AIM -1.50 LEFT EYE. SARTHAK Aguilar documented in this encounter [facility] 12-29-2022 Instructions Sheeba Webster APRN.PROMOTIONS DIRECTOR - 12/29/2022 1:50 PM EDT PATIENT PREOPERATIVE INSTRUCTIONS Sheree Schaffer V, MD has scheduled you for your procedure at this surgery center: [facility]: [phone] --[address] [place] [address]. Please read below carefully for your personalized instructions. Dietary Restrictions: - No solid food after midnight. - You may have 12 ounces of clear liquids (water, clear juices such as apple juice or gatorade, carbonated beverages, clear tea, black coffee, jello) until 2 hours before scheduled arrival at facility. Is Patient Diabetic:No Medications: Unless instructed differently below, stay on all of your medications until your surgery. Approved medications to take the morning of surgery with a sip of water: Lisinopril, Metoprolol, Omeprazole(Prilosec), Rosuvastatin(Crestor), Gemfibozil If you take any medications for erectile dysfunction-Cialis (Tadalafil), Levitra, Staxyn (Vardenafil) Viagra (Sildenenafil please do not take these for 48 hours before surgery. If you start any new medications after today's visit, please contact the surgeon's office. Important Reminders: - Candy, mints, and tobacco products are NOT permitted the morning of surgery. - Hearing aids, dentures and glasses may be worn the morning of surgery. - NO jewelry, body piercings, makeup, hairpins or contacts are to be worn the day of surgery. If you develop symptoms such as a fever, cold, or flu, or have other changes to your health within TWO DAYS of scheduled surgery or the morning of surgery, please contact the surgery center above. Personal Belongings: -Please have photo ID and insurance cards. -If you do not have a copy of advance directives on file with us, please bring a copy with you on the day of surgery. - Leave ALL valuables and money at home or with family members. For Outpatient Procedures: - YOU MUST HAVE A RESPONSIBLE WEB PRODUCTION DESIGNER TAKE YOU HOME. A MORNING NANNY OR [employer]PER[employer] CANNOT BE MADE A RESPONSIBLE WEB PRODUCTION DESIGNER. - We recommend that a responsible person stays with you overnight to take care of you. - You cannot stay in a hotel alone after outpatient surgery. You will not be permitted to have your surgery, if you do not have someone to take care of you. Arrival Time for Surgery: - The Surgery Center or hospital where you are having surgery will call the afternoon before surgery (or Monday for Monday surgery) with a scheduled arrival time. - If you have not heard by 4 pm, please contact the surgery center above. Please be aware that emergency situations arise, which may delay or change your surgical time. If this happens, we will notify you as soon as possible and regret any inconvenience. If you already have an Advance Directive, please fax a copy to [phone] or email to for it to be added to your chart. If you do not have an Advance Directive, you can find the appropriate form and more information at [email or web address]. We recommend that you complete the Advance Directive form found on the website and bring it with you the day of your surgery. It can be witnessed and scanned into your chart that day. Sheeba Webster APRN.MAXIMILIAN documented in this encounter [facility] 12-29-2022 History and physical note HISTORY AND PHYSICAL EXAMINATION SERVICE DATE: 12/29/2022 SERVICE TIME: 1:36 PM PRIMARY CARE PHYSICIAN: SELWYN Bhatt REASON FOR VISIT: Darius Thacker is a 62 year old male who is scheduled for PHACOEMULSIFICATION CATARACT IMPLANT INTRAOCULAR LENS W/O ENDOSCOPIC CYCLOPHOTOCOAGULATION left at the request of Dr. Sheree Schaffer V for consultation. My final recommendation will be communicated back to the requesting physician by way of shared medical record or letter. The patient has the following: ACTIVE PROBLEM LIST Hyperlipidemia Diverticulosis Fracture, Ankle Jsoe (Obstructive Sleep Apnea) Elevated Liver Enzymes Hypertriglyceridemia Osteoarthritis Asthma Kidney Stones Lumbar Transverse Process Fracture (Hcc) Lumbosacral Neuritis Essential (Primary) Hypertension Generalized Ischemic Myocardial Dysfunction Subjective CHIEF COMPLAINT: Left eye change of vision HPI: 62 year old male with left eye change of vision that has been ongoing for 6 months. Patient states that he has blurred Vision,decreased vision,difficulty with driving,difficulty with reading,difficulty with watching television,floaters,glare. Patient denies any alleviating factors. Patient denies any pain today PAST MEDICAL HISTORY Diagnosis Date Asthma Diverticulosis Elevated liver enzymes Fracture, ankle left Hyperlipidemia Hypertriglyceridemia Kidney stones JOSE (obstructive sleep apnea) CPAP Osteoarthritis PAST SURGICAL HISTORY Procedure Laterality Date BACK SURGERY HX 2006 herniated disc by Tamia Veronica COLONOSCOPY 2013 FAMILY HISTORY Problem Relation Age of Onset other (myocardial infarction [Other]) Father Age 32 other (CABG [Other]) Father age 55 Diabetes Father other (high blood pressure [Other]) Father Arthritis Father Cancer Mother Cataract Maternal Grandmother other (myocardial infarction [Other]) Paternal Aunt Age SOCIAL HISTORY: Social History Tobacco Use Smoking status: Former Packs/day: 1.00 Years: 15.00 Pack years: 15.00 Types: Cigarettes Quit date: 2001 Years since quittin.4 Smokeless tobacco: Never Substance Use Topics Alcohol use: Not Currently Comment: 5 drinks per week, sometimes more Drug use: No MEDICATIONS: Prior to Admission medications as of 12/29/22 1334 Medication Sig Last Dose Taking aspirin, enteric coated (ECOTRIN LOW STRENGTH) 81 mg EC tablet Take 81 mg by mouth once daily. Yes gemfibrozil (LOPID) 600 mg tablet Take 600 mg by mouth. Yes lisinopril (ZESTRIL, PRINIVIL) 10 mg tablet Take 10 mg by mouth. Yes rosuvastatin (CRESTOR) 40 mg tablet Take 40 mg by mouth once daily. Yes furosemide (LASIX ORAL) Take 20 mg by mouth. Yes metoprolol succinate ER (TOPROL XL) 50 mg 24 hr tablet q 24 HR. Yes omeprazole (PRILOSEC) 20 mg capsule omeprazole 20 mg capsule,delayed release TAKE 2 CAPSULES BY MOUTH EVERY DAY Yes fluticasone (FLONASE) 50 mcg/actuation nasal spray Use 1 [place] in each nostril as needed. Yes No medication comments found. CURRENT ALLERGIES: ALLERGIES No Known Allergies COVID VACCINATION STATUS: Fully vaccinated REVIEW OF SYSTEMS: PAIN ASSESSMENT: General: No weight loss, malaise or fevers. Neuro: No history of TIA's, stroke, MANAGER LEASING tumor, impaired sensorium, hemiplegia, paraplegia or quadraplegia. No neurological symptoms or problems. Positive [place] bilateral hearing aids Respiratory: Positive for Tobacco Use quit in 2001 JOSE compliant with CPAP , Negative for No history of current cough or dyspnea, or pneumonia in the past 6 weeks. Cardiovascular: Positive for: HLD, Hypertension History of CAD s/p PTCA in 2014 Heart Failure on Lasix EF 40% Denies rest pain, gangrene or revascularization/amputation for PVD GI: Positive for GERD, Negative for Esophageal varices < 6 months, Hepatitis, Liver disease, Pancreatitis, Colon cancer, Rectal cancer : No history of dysuria, frequency or incontinence,, stones or chronic kidney disease, No difficulty urinating, nocturia > 1 time per night or hematuria Endocrine: No history of diabetes. Has not taken steroids within the past 30 days. No history of endocrinological symptoms or problems. Hematology: Chronic anti-coagulation / platelet meds (Aspirin) Oncology: No history of CA metastasis, chemo within 30 days, or radiotherapy within 90 days. Has not lost 10% of body wt in 6 months. No history of oncological symptoms or problems. Psych: No history of psychiatric symptoms or problems. Musculoskeletal: Joint pain Skin: Negative for lesions, rash and itching. Objective PHYSICAL EXAM: VITALS: BP 115/75 Pulse 57 Temp (Src) 97.2 (Temporal Artery) Resp 16 Ht 5' 10 (1.78m) Wt 178 lb (80.7kg) SpO2 100% BMI 25.54 kg/(m^2). General: Alert and oriented, No acute distress, Healthy appearance Skin: Normal color, no rash, no lesions. Cardiovascular: Normal S1 & S2, no rubs, murmurs or gallops. No JVD. Pulse regular. Lungs: Normal breath sounds, no wheezes or crackles. Abdomen: Soft, non-tender, no rigidity., Positive bowel sounds Extremities: No deformity, no edema or tenderness, no joint swelling or clubbing. Neurological: Normal cognition and motor skills. Gait normal. No weakness or sensory deficit. Pulses: Carotid and radial pulses normal +2. Diagnostic tests reviewed for today's visit: MUGA scan 10/22/2018: LV ejection fraction 43%. Echocardiogram 10/02/2018: LVEF 35%, regional wall motion abnormalities. Possible layered thrombus in the LV apex. [I had reviewed the echo images and also Dr Caroline Brasher reviewed them as well. We both agreed that there is no thrombus.] Echocardiogram on 01/05/2016: LVEF 40%, RVSP 22 mmHg. No valvular abnormalities. Lab Value Units Date High Low ABORHD No results within date range. ABSCREEN No results within date range. No results found for: HBA1C No new labs or tests Assessment/Plan Heart failure (HCC) Assessment: Ischemic cardiomyopathy, LVEF 43% on MUGA scan 10/2018. Well compensated NYHA class I.. In the interim continue metoprolol succinate 50 mg and lisinopril 10 mg. He is also taking Lasix 20 mg every other day Follows cardiology, JONAS Nowak , last OV 11/22/2022. Compliant on medications. Appears euvolemic, denies new or worsening cardiac symptoms. Ejection Fraction: No results found Essential (primary) hypertension Assessment: Stable on medication BP today 115/75 To take medication morning of surgery Hyperlipidemia Assessment: stable on medication Generalized ischemic myocardial dysfunction Assessment: history of VT s/p PTCA in 2015 on ASA follows with Cardiology stable JOSE (obstructive sleep apnea) Assessment: compliant with CPAP Former Smoker quit in 2001 15 pack year history GERD Stable on PPI METS: Do moderate work around the house such as vacuuming, sweeping floors, or carrying in groceries (3.50 METs) Do yardwork, such as raking leaves, weeding,or pushing a power mower (4.50 METs) Climb a flight of stairs or walk up a hill (5.50 METs) Patient denies any chest pain or undue shortness of breath with the above physical activity. ASA Class: 3 ANESTHESIA FINDINGS: Intubation History: No history of difficult intubation Significant Anesthesia Considerations: None Airway Exam: General: Normal appearance Mallampati Score is CLASS I ULBT: Class I - Lower incisors can bite the upper lip above the shani line Neck: Normal appearance and function, Distance from hyoid to mentum during neck extension is at least 3 finger breaths Mouth: Normal tongue size and Mouth opening greater than 2 finger breaths Dentition: Intact Airway History: No abnormal airway history Sleep Apnea Probability Snores loudly: Yes Tired, fatigued or sleepy in daytime: Yes Stops breathing or choking/gasping during sleep: Yes High blood pressure: Yes Sleep Apnea Probability Score 12/26/2022 Sleep Apnea Screen V2 60 (Recommend sleep study) PLAN This patient is optimally prepared for surgery. CONSULTS: Patient does not require consults for optimization at this time. The Following Tests/Procedures Have Been Initiated: Labs not indicated per [facility] protocol, EKG not indicated per [facility] protocol Planned Anesthetic: MAC Instructions Given to Patient: Instructions located in the after visit summary. Patient given verbal and written preop instructions and voices comprehension and compliance. SIGNATURE: Sheeba Webster APRN.CNP PATIENT NAME: Darius Thacker DATE: December 29, 2022 TIME: 1:36 PM documented in this encounter [facility] 12-16-2022 Miscellaneous Notes Images from the original note were not included. Called and spoke to patient and scheduled pre op appointments for 12/29. I advised him that we will contact Dr Breen' office and set up the post op appointments (1 day and 1 week). Asked if it was okay that we send him a [employer] message with those appointments. He confirmed mychart was okay. Add on 01/11 per - call to schedule Received: Yesterday Marina Brain [facility] CHART MADE AND FILED IN PERSIA PATIENT SCHEDULED FOR SX OS ONLY 01/11/23 - ADD PER MYC OK: --NO CALL TO SCHEDULE PH #: VERIFIED SR/CASE MSG DONE: YES NOTES: POST OPS W/: DR BREEN COMANAGE Sheree Schaffer V, MD P L[facility] Op[facility] Left eye only Comanage with Dr Breen The documentation for this note was completed by SARTHAK aB acting as a scribe for Sheree SCHAFFER MD. 12/15/2022 12:36 PM. ASSESSMENT / PLAN: 1. Combined cataract, both eyes - Offered cataract extraction by phacoemulsification and intraocular lens implant with Dr. Schaffer, left eye only at this time - Aim: -1.50 Left eye [plano Right eye, when/if elects Cataract extraction OD] - Flomax/alpha-franc? No - Toric candidate: No - PanOptix candidate: No - Anesthesia: Topical with MAC - Contact lens use No - History of LASIK/PRK/RK No - Discussed initiate twice daily eyelid scrubs pending U/S biometry and surgery - Comanage with Dr Breen; [facility] POD #1 documented in this encounter [facility] 12-15-2022 Note HNO ID: [id number] Author: Sheree Schaffer V, MD Service: ? Author Type: Physician Type: Progress Notes Filed: 12/15/2022 1:15 PM Note Text: The documentation for this note was completed by SARTHAK Ba acting as a scribe for Sheree SCHAFFER MD. 12/15/2022 12:36 PM. ASSESSMENT / PLAN: 1. Combined cataract, both eyes - Offered cataract extraction by phacoemulsification and intraocular lens implant with Dr. Schaffer, left eye only at this time - Aim: -1.50 Left eye [plano Right eye, when/if elects Cataract extraction OD] - Flomax/alpha-franc? No - Toric candidate: No - PanOptix candidate: No - Anesthesia: Topical with MAC - Contact lens use No - History of LASIK/PRK/RK No - Discussed initiate twice daily eyelid scrubs pending U/S biometry and surgery - Comanage with Dr Breen; [facility] POD #1 Cataract Presurgical Documentation Cataract: Both eyes (OU) Current Visual Acuity Right Eye Distance CC 20/20 Left Eye Distance CC 20/150 Best Corrected Vision Right Eye 20/20 Best Corrected Vision Left Eye 20/150 Glare Testing: Right Eye High 20/50 Left Eye High defer due to poor vision Visual Function: Darius Thacker states that the decline in vision from the cataract impedes his abilities as listed in the HPI, as well as other activities of daily living. Darius Thacker has confirmed that he is no longer able to function adequately on a day-to-day basis because of his current visual condition. Further, it is my medical opinion that the cataract is the primary cause, or at least a significantly contributory cause of his visual dysfunction. With uncomplicated cataract surgery and lens implantation, it is my expectation that his visual function and quality of life will improve significantly. The risks, benefits, alternatives, personnel and complications of cataract surgery with lens implantation were discussed with Darius Thacker in detail. These included, but are not limited to: infection, bleeding, loss of vision, and the need for additional surgery. he appeared to understand and asked that I proceed with plans for surgery. Patient acknowledges possible need for glasses after procedure. Intraocular lens options were discussed with patient. If patient was a good candidate for multifocal Intraocular lenses, risk of halos, glare, and possible need for glasses was discussed. Informed consent form signed by physician and patient. Literature regarding cataract and cataract extraction by phacoemulsification offered. Return for preadmission testing, biometry AND intraocular lens calculations prior to surgery. The patient was offered a surgery/procedure at a [facility] facility. The surgeon/proceduralist and patient have discussed in detail the risk of exposure to and/or potential harm posed by the COVID-19 virus with having a surgery/procedure at this time versus the risk of delaying the surgery/procedure. It is not possible to know either the risk of delaying the surgery or procedure or chance of getting an infection with perfect accuracy, but a joint decision was made between the patient and the surgeon/proceduralist to proceed at this time with the scheduled surgery/procedure as indicated on the consent form. The documentation recorded by the scribe accurately reflects the service I personally performed and the decisions made by me. I have confirmed and edited as necessary the relevant ophthalmic history, ROS, and the exam findings as obtained by others. I have seen and examined Darius Thacker. I also have reviewed and agree with the assessment and plan as stated above and agree with all of its relevant components. Sheree SCHAFFER MD December 15, 2022 12:36 PM [facility] 12-15-2022 Note HNO ID: [id number] Author: Beatriz Figueroa, MAYI Service: ? Author Type: RESOURCE FORESTER Type: Progress Notes Filed: 12/15/2022 1:15 PM Note Text: ASSESSMENT/PLAN: 1. Combined forms of age-related cataract of both eyes - ICD9: 366.19, ICD10: H25.813 (primary diagnosis) OS>>OD. Pt educated. Eval with AH today. Ref by Dr. Breen 2. Myopia with astigmatism and presbyopia, bilateral - ICD9: 367.1, 367.20, 367.4, ICD10: H52.13, H52.203, H52.4 Beatriz Figueroa, OD I have confirmed and edited as necessary the relevant ophthalmic history, ROS, and the exam findings as obtained by others. I have seen and examined this patient. I have discussed the case and the management of this patient's care with the resident or fellow as appropriate. I also have reviewed and agree with the assessment and plan as stated above and agree with all of its relevant components. Beatriz Figueroa, OD December 15, 2022 12:29 PM [facility] 12-15-2022 Miscellaneous Notes Addended by: MARINA SALGADO on: 12/15/2022 02:17 PM Modules accepted: Orders documented in this encounter [facility] 12-15-2022 History of Present illness Narrative The documentation for this note was completed by Lucie Osei, COA acting as a scribe for Sheree SCHAFFER MD. 12/15/2022 12:36 PM. ASSESSMENT / PLAN: 1. Combined cataract, both eyes - Offered cataract extraction by phacoemulsification and intraocular lens implant with Dr. Schaffer, left eye only at this time - Aim: -1.50 Left eye [plano Right eye, when/if elects Cataract extraction OD] - Flomax/alpha-franc? No - Toric candidate: No - PanOptix candidate: No - Anesthesia: Topical with MAC - Contact lens use No - History of LASIK/PRK/RK No - Discussed initiate twice daily eyelid scrubs pending U/S biometry and surgery - Comanage with Dr Breen; [facility] POD #1 Cataract Presurgical Documentation Cataract: Both eyes (OU) Current Visual Acuity Right Eye Distance CC 20/20 Left Eye Distance CC 20/150 Best Corrected Vision Right Eye 20/20 Best Corrected Vision Left Eye 20/150 Glare Testing: Right Eye High 20/50 Left Eye High defer due to poor vision Visual Function: Darius Thacker states that the decline in vision from the cataract impedes his abilities as listed in the HPI, as well as other activities of daily living. Darius Thacker has confirmed that he is no longer able to function adequately on a day-to-day basis because of his current visual condition. Further, it is my medical opinion that the cataract is the primary cause, or at least a significantly contributory cause of his visual dysfunction. With uncomplicated cataract surgery and lens implantation, it is my expectation that his visual function and quality of life will improve significantly. The risks, benefits, alternatives, personnel and complications of cataract surgery with lens implantation were discussed with Darius Thacker in detail. These included, but are not limited to: infection, bleeding, loss of vision, and the need for additional surgery. he appeared to understand and asked that I proceed with plans for surgery. Patient acknowledges possible need for glasses after procedure. Intraocular lens options were discussed with patient. If patient was a good candidate for multifocal Intraocular lenses, risk of halos, glare, and possible need for glasses was discussed. Informed consent form signed by physician and patient. Literature regarding cataract and cataract extraction by phacoemulsification offered. Return for preadmission testing, biometry & intraocular lens calculations prior to surgery. The patient was offered a surgery/procedure at a [facility] facility. The surgeon/proceduralist and patient have discussed in detail the risk of exposure to and/or potential harm posed by the COVID-19 virus with having a surgery/procedure at this time versus the risk of delaying the surgery/procedure. It is not possible to know either the risk of delaying the surgery or procedure or chance of getting an infection with perfect accuracy, but a joint decision was made between the patient and the surgeon/proceduralist to proceed at this time with the scheduled surgery/procedure as indicated on the consent form. The documentation recorded by the scribe accurately reflects the service I personally performed and the decisions made by me. I have confirmed and edited as necessary the relevant ophthalmic history, ROS, and the exam findings as obtained by others. I have seen and examined Dariusessence Thacker. I also have reviewed and agree with the assessment and plan as stated above and agree with all of its relevant components. Sheree SCHAFFER MD December 15, 2022 12:36 PM ASSESSMENT/PLAN: 1. Combined forms of age-related cataract of both eyes - ICD9: 366.19, ICD10: H25.813 (primary diagnosis) OS>>OD. Pt educated. Eval with AH today. Ref by Dr. Breen 2. Myopia with astigmatism and presbyopia, bilateral - ICD9: 367.1, 367.20, 367.4, ICD10: H52.13, H52.203, H52.4 Beatriz Figueroa OD I have confirmed and edited as necessary the relevant ophthalmic history, ROS, and the exam findings as obtained by others. I have seen and examined this patient. I have discussed the case and the management of this patient's care with the resident or fellow as appropriate. I also have reviewed and agree with the assessment and plan as stated above and agree with all of its relevant components. Beatriz Figueroa OD December 15, 2022 12:29 PM documented in this encounter [facility] 11-22-2022 Note Cardiology Clinic No te Subjective Darius Thacker is a 62 y.o. year old male patient with CAD s/p PCI to LAD and systolic heart failure seen in follow-up. He reports he has been doing well without cardiac concerns. He stays active, denies chest pain, shortness of breath, palpitations, or lower extremity edema. Patient Active Problem List Diagnosis Acute Q wave myocardial infarction (CMS/HCC) Acute renal impairment Asthma Coronary arteriosclerosis Diverticulosis Dyspnea Edema of lower extremity Elevated liver enzymes Eruption due to drug Fracture, ankle Generalized ischemic myocardial dysfunction Hypertriglyceridemia Kidney stones Lumbar transverse process fracture (CMS/HCC) JOSE (obstructive sleep apnea) Osteoarthritis Lumbosacral neuritis Family History Problem Relation Name Age of Onset Leukemia Mother Diabetes Father Heart attack Father HPI Social History Tobacco Use Smoking status: Never Smokeless tobacco: Never Substance Use Topics Alcohol use: Yes Comment: moderate Mr Thacker is seen in follow up on CAD, LAD VT treated by stenting (02/2015) and systolic heart failure. His echocardiogram on 04/14/2015 and 01/05/2016 showed improvement in EF to 40%. His last echocardiogram in 2018 showed an LVEF of 35%. A MUGA scan in 2019 showed an LVEF of 43%. We had stopped brilinta at a prior visit. He has been well. He has no chest pain. He has no dyspnea on exertion. He has no lower extremity edema. Blood testing 10/28/2020: Cholesterol 181, triglycerides 74, HDL 83, LDL 83. LFTs normal. Lipids 08/03/2018: Chol 212, TG 51, HDL 116, LDL 85. Lipid profile 07/01/2017: HDL >110 TG 94. Lipid profile 03/07/2017: LDL 68 TG 82. Lipid profile 06/14/2016: LDL 82 TG 87. Lipid profile 12/18/2015: LDL 75 TG 101. MUGA scan 10/22/2018: LV ejection fraction 43%. Echocardiogram 10/02/2018: LVEF 35%, regional wall motion abnormalities. Possible layered thrombus in the LV apex. [I had reviewed the echo images and also Dr Caroline Brasher reviewed them as well. We both agreed that there is no thrombus.] Echocardiogram on 01/05/2016: LVEF 40%, RVSP 22 mmHg. No valvular abnormalities. No change since 06/22/2015 visit: He had myocardial infarction related to LAD thrombotic occlusion and underwent emergent stenting of the LAD with a drug eluting stent on 02/25/2015. His EF was 25-30% and improved to 35% on 03/17/2015. He was on Lipitor and that caused rash. This was changed to crestor 5 mg daily which seems to be ok for him, and this was increased to 10 mg daily. His lipid profile on 03/16/2015: LDL 98; HDL 49; TG 404; Previously I had added aldactone 25 mg daily, increased crestor to 10 mg daily, and added lopid 600 mg twice daily. His BMP on 04/14/2015 showed creatinine of 2.09 and BUN of 22; both were normal in February. K was 4.6, Na 134. I repeated BMP after stopping aldactone and this showed normalization of renal function. His renal duplex ultrasound did not show significant renal artery stenosis. 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 Review of Systems Cardiovascular: Negative for chest pain, claudication, dyspnea on exertion, irregular heartbeat, leg swelling, near-syncope, orthopnea, palpitations, paroxysmal nocturnal dyspnea and syncope. Objective Visit Vitals BP 127/81 (BP Location: Left arm, Patient Position: Sitting) Pulse 77 Ht 1.778 m (5' 10 ) Wt 79.4 kg (175 lb) SpO2 95% BMI 25.11 kg/m??? Smoking Status Never BSA 1.98 m??? Physical Exam General: Awake, alert, good spirits. NAD Pulm: Breath sounds clear to ascultation bilaterally with no wheeze, crackles or rhonchi Cards: Regular rate and rhythm, S1, S2. No S3 or S4 gallop. Murmur: none Abd: Soft, Nontender, physiologic bowel sounds are present Extr: Lower extremity edema: None. DP pulses:2+ Skin: warm, dry, well perfused Neuro: A&Ox3, No gross deficits Allergies Allergies Allergen Reactions Atorvastatin Medications Current Outpatient Medications: furosemide (Lasix) 20 mg tablet, Take 1 tablet (20 mg) by mouth every other day., Disp: 45 tablet, Rfl: 3 gemfibrozil (Lopid) 600 mg tablet, Take 1 tablet (600 mg) by mouth in the morning and at bedtime., Disp: 180 tablet, Rfl: 3 lisinopril 10 mg tablet, Take 1 tablet (10 mg) by mouth in the morning., Disp: 90 tablet, Rfl: 3 metoprolol succinate XL (Toprol-XL) 50 mg 24 hr tablet, Take 1 tablet (50 mg) by mouth once daily as directed., Disp: 90 tablet, Rfl: 3 omeprazole (PriLOSEC) [address] capsule, Take 2 capsules (40 mg) by mouth once daily as directed., Disp: 180 capsule, Rfl: 3 rosuvastatin (Crestor) 40 mg tablet, Take 1 tablet (40 mg) by mouth at bedtime., Disp: 90 tablet, Rfl: 3 Recent Labs 10/20/2022 WBC 6.1, hematocrit 41.1, hemoglobin 14.3, platelets 224 Sodium 136, potassium 3.9, chloride 97, CO2 28.7, glucose 109, BUN 17, serum creatinine 0.84, estimated GFR greater th (more content not included)... [facility] 11-22-2022 Note Patient here for 1 y ear follow up CAD, hypertension, and systolic heart failure. Had routine labs 2 weeks ago. Denies chest pain, SOB, and lightheadedness. Doing great. Review of Systems All other systems reviewed and are negative. [facility] 10-31-2022 Note HNO ID: [id number] Author: Barber Snow, DO Service: ? Author Type: Physician Type: Progress Notes Filed: 11/05/2022 11:18 PM Note Text: [facility] - Medical Spine Established Patient DISTANCE HEALTH VISIT This Team Access Model visit is a virtual encounter. It required patient-provider interaction for the medical decision making as documented below. I have communicated my name and active licensure. The patient's identity and physical location were verified at the time of this visit. Darius Thacker has consented to this telephone or audio/video encounter. Persons Present: patient SUBJECTIVE HISTORY OF PRESENT ILLNESS: Darius Thacker is a 62 year old male who presents with a chief complaint of low back pain. Last visit: cont PT HEP, Right L5 TFESI ordered. Patient underwent right L5 TFESI. After 3-4 days to 1 week he noticed significant improvement. Pain was ranging 2-4/10 prior to the injection and is now occurring only intermittently and rated less than 1/10. He has been able to increase his walking duration without significant pain. Has also been able to sit in a car for longer duration without worsening the pain. When pain occurs it is primarily right low back to right buttock. No longer having pain radiating to the right posterior thigh or right lateral calf to ankle. Has not required any medications for pain relief recently. Patient is happy with his current progress. Initial visit 05/18/22: Prior episodes: low back pain, previous herniated disc at L5-S1 s/p microdiscectomy 2005. Current pain began 1 month ago without inciting event. Pain is right low back radiates to RLE laterally down to dorsal foot. Denies numbness/tingling. Denies weakness. Denies bowel/bladder incontinence or saddle anesthesia. Reports he is used to walking 6 miles daily, but can't now due to pain. Had left foot drop s/p 2005 L5-S1 disc herniation, improved with surgery, but does still have episodes of tripping/falling. The pain is currently 4/10. The pain can get to 9/10 at the highest and 1/10 at the lowest. 07/25/22: Patient was attending PT and had improvement of most of his pain, 70-80%. Last week he was walking on his treadmill, about 6 miles, and afterward noted the pain was returning and limited him trying to walk the next day. Pain is right low back/buttock radiates down RLE posterolaterally to the ankle, associated with tingling. Pain is currently 2-3/10. 09/16/22: Patient continues to report improvement in his pain, estimates this at 60-70% today. Pain is constant right lumbosacral/buttock region intermittently to posterior thigh, sometimes to right calf to lateral ankle. Worse with walking. Can feel like a pulling in thigh. Patient states a couple weeks ago he was walking and his right leg got caught on something and turned outward, which aggravated his pain and it has taken continued PT sessions to reduce again. Wants to get back to brisk walking. Pain is currently 2/10, can get up to 4/10 with walking. PAIN EVALUATION No data found in the last 1 encounters. Pain Radiation: down right leg outside of the leg and to the top of the foot. Only on the right. Aggravating Factors: Worst with Walking, Walking up incline Previously Bending forward, sitting down prolonged, riding in truck coughing, sneezing, having a BM Alleviating Factors: Resting, standing up. Pain Ratio: Pain is 50/50 back and leg. Current Treatment: Medications None currently Therapies PT: [facility], Anders Baker PT, eval 05/30 - 09/16/22, 20 visits, including mechanical traction - PT notes responded well with reduced symptoms, but unable to fully resolve, d/c Summary note on 10/14/22. Prior Treatment: Medications Medrol dose pack - provided some relief Gabapentin was prescribed but he has not tried it Ibuprofen 400 mg - prn, minimal relief - not often Creams, patches and hemp - minimal relief Therapies PT - finished for the left leg, not for the right leg 2019 - helped back pain Inversion table - no help Prior spine interventions: -10/04/22 Dr. Snow: Right L5 TFESI - pain decreased from 2-4/10, down to 0-1/10, allowed for increased walking duration, able to sit in car for longer periods of time. Prior spine surgery: -[address] Lumbar discectomy L5-S1 Dr. Sean Veronica - symptoms resolved, caused left foot drop Previously treated by: -Spine Surgery Dr. Sean Veronica 2019. back pain with radiation to right anterior thigh. Chronic left drop foot, but not worsening. All in all I am happy with his clinical condition. He is to come back to see me on an as-needed basis for possible injections or repeat therapy, as well. Certainly surgery is the last resort. PMH: Left foot drop since 2006 lumbar surgery, notes the foot will slap the ground with prolonged walking CAD s/p stent on ASA 81 mg OS (more content not included)... [facility] 10-31-2022 History of Present illness Narrative Images from the original note were not included. [facility] [place] [facility] - Medical Spine Established Patient DISTANCE HEALTH VISIT This Team Access Model visit is a virtual encounter. It required patient-provider interaction for the medical decision making as documented below. I have communicated my name and active licensure. The patient's identity and physical location were verified at the time of this visit. Darius Thacker has consented to this telephone or audio/video encounter. Persons Present: patient SUBJECTIVE HISTORY OF PRESENT ILLNESS: Darius Thacker is a 62 year old male who presents with a chief complaint of low back pain. Last visit: cont PT HEP, Right L5 TFESI ordered. Patient underwent right L5 TFESI. After 3-4 days to 1 week he noticed significant improvement. Pain was ranging 2-4/10 prior to the injection and is now occurring only intermittently and rated less than 1/10. He has been able to increase his walking duration without significant pain. Has also been able to sit in a car for longer duration without worsening the pain. When pain occurs it is primarily right low back to right buttock. No longer having pain radiating to the right posterior thigh or right lateral calf to ankle. Has not required any medications for pain relief recently. Patient is happy with his current progress. Initial visit 05/18/22: Prior episodes: low back pain, previous herniated disc at L5-S1 s/p microdiscectomy 2005. Current pain began 1 month ago without inciting event. Pain is right low back radiates to RLE laterally down to dorsal foot. Denies numbness/tingling. Denies weakness. Denies bowel/bladder incontinence or saddle anesthesia. Reports he is used to walking 6 miles daily, but can't now due to pain. Had left foot drop s/p 2005 L5-S1 disc herniation, improved with surgery, but does still have episodes of tripping/falling. The pain is currently 4/10. The pain can get to 9/10 at the highest and 1/10 at the lowest. 07/25/22: Patient was attending PT and had improvement of most of his pain, 70-80%. Last week he was walking on his treadmill, about 6 miles, and afterward noted the pain was returning and limited him trying to walk the next day. Pain is right low back/buttock radiates down RLE posterolaterally to the ankle, associated with tingling. Pain is currently 2-3/10. 09/16/22: Patient continues to report improvement in his pain, estimates this at 60-70% today. Pain is constant right lumbosacral/buttock region intermittently to posterior thigh, sometimes to right calf to lateral ankle. Worse with walking. Can feel like a pulling in thigh. Patient states a couple weeks ago he was walking and his right leg got caught on something and turned outward, which aggravated his pain and it has taken continued PT sessions to reduce again. Wants to get back to brisk walking. Pain is currently 2/10, can get up to 4/10 with walking. PAIN EVALUATION No data found in the last 1 encounters. Pain Radiation: down right leg outside of the leg and to the top of the foot. Only on the right. Aggravating Factors: Worst with Walking, Walking up incline Previously Bending forward, sitting down prolonged, riding in truck coughing, sneezing, having a BM Alleviating Factors: Resting, standing up. Pain Ratio: Pain is 50/50 back and leg. Current Treatment: Medications None currently Therapies PT: [facility], Anders Baker PT, frances 05/30 - 09/16/22, 20 visits, including mechanical traction - PT notes responded well with reduced symptoms, but unable to fully resolve, d/c Summary note on 10/14/22. Prior Treatment: Medications Medrol dose pack - provided some relief Gabapentin was prescribed but he has not tried it Ibuprofen 400 mg - prn, minimal relief - not often Creams, patches and hemp - minimal relief Therapies PT - finished for the left leg, not for the right leg 2019 - helped back pain Inversion table - no help Prior spine interventions: -10/04/22 Dr. Snow: Right L5 TFESI - pain decreased from 2-4/10, down to 0-1/10, allowed for increased walking duration, able to sit in car for longer periods of time. Prior spine surgery: -2005 Lumbar discectomy L5-S1 Dr. Sean Veronica - symptoms resolved, caused left foot drop Previously treated by: -Spine Surgery Dr. Sean Veronica 2018. back pain with radiation to right anterior thigh. Chronic left drop foot, but not worsening. All in all I am happy with his clinical condition. He is to come back to see me on an as-needed basis for possible injections or repeat therapy, as well. Certainly surgery is the last resort. 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 Litigation: No Workers' Compensation: No YELLOW & BLUE FLAGS No-Neg Attitude; Back Pain is Disabling No-Avoiding Activity (for Fear of Pain) No-Depression or Anxiety Disorders No-Social Problems No-Substance Use Disorder No-Job Dissatisfaction No-Financial Disincentives Patient Entered Questionnaires Spine Questions 07/18/2022 09/09/2022 10/24/2022 Pain Location: Lower back Lower back Lower back Pain Duration: - - - Symptoms from neck/cervical spine: No Yes No Employment Status: - Working now - Off work 1 month or more due to back/neck pain: - - - Applied for/receive disability/WC due to low back/neck pain - - - Involved in law suit/legal claim: - - - Spine Red Flags 05/15/2022 09/09/2022 Any type of cancer: No No Unexplained fever: No No Bowel or bladder disfunction: No No Unintentional weight loss: No No Osteoporosis: No No Neck Questionnaires 05/15/2022 09/09/2022 Benzel Modified ANGELICA Score 17 (A lower score indicates increased pain and issues.) 17 (A lower score indicates increased pain and issues.) PROMIS Score Percentiles Physical Health 07/18/2022 09/09/2022 10/24/2022 Physical Function Percentile 18* 18* 42 Sleep Percentile 34 34 42 Fatigue Percentile 54 38 69 Pain Interference Percentile 27* 12 12 PROMIS SOCIAL ROLE SCORE 07/18/2022 09/09/2022 10/24/2022 Social Role Satisfaction Percentile 14 31 96 PROMIS Global Health Scale 05/15/2022 07/18/2022 10/24/2022 Physical Health Percentile 10 41 78 Mental Health Percentile - 73 82 Percentiles provide an indication of how the patient's score ranks in relation to the general population. Higher percentile rankings indicate better function/quality of life. 50th percentile is the average of the general population and indicates half of respondents had a worse score. Depression Screening: PHQ-9 07/18/2022 09/09/2022 10/24/2022 Score 1 4 0 PHQ-9 Self Harm 07/18/2022 09/09/2022 10/24/2022 Question 9 Not at all Not at all Not at all PHQ-9 Self-Harm (Item 9) response options: 0 Not at all 1 Several days 2 More than half the days 3 Nearly every day PHQ-9 Levels: 0-4 No - mild depression 5-9 Mild depression 10-14 Moderate depression 15-19 Moderately severe depression 20-27 Severe depression ACTIVE PROBLEM LIST Hyperlipidemia Diverticulosis Fracture, Ankle Jose (Obstructive Sleep Apnea) Elevated Liver Enzymes Hypertriglyceridemia Osteoarthritis Asthma Kidney Stones Lumbar Transverse Process Fracture (Hcc) Lumbosacral Neuritis PAST MEDICAL HISTORY Diagnosis Date Asthma Diverticulosis Elevated liver enzymes Fracture, ankle left Hyperlipidemia Hypertriglyceridemia Kidney stones JOSE (obstructive sleep apnea) CPAP Osteoarthritis PAST SURGICAL HISTORY Procedure Laterality Date BACK SURGERY HX 2006 herniated disc by Tamia Veronica COLONOSCOPY 2013 Social History Tobacco Use Smoking status: Former Packs/day: 1.00 Years: 15.00 Pack years: 15.00 Types: Cigarettes Smokeless tobacco: Never Substance Use Topics Alcohol use: Yes Alcohol/week: 7.5 standard drinks Types: 3 Cans of Beer (12oz) per week Drug use: No FAMILY HISTORY Problem Relation Age of Onset other (myocardial infarction [Other]) Father Age 32 other (CABG [Other]) Father age 55 other (myocardial infarction [Other]) Paternal Aunt Age Cancer Mother Diabetes Father other (high blood pressure [Other]) Father Arthritis Father ALLERGIES No Known Allergies CURRENT MEDICATIONS: aspirin-caffeine 1,000-150 mg pwpk Take 81 mg by mouth. gemfibrozil (LOPID) 600 mg tablet Take 600 mg by mouth. lisinopril (ZESTRIL, PRINIVIL) 10 mg tablet Take 10 mg by mouth. omeprazole magnesium (PRILOSEC ORAL) Take 20 mg by mouth twice daily. rosuvastatin (CRESTOR) 40 mg tablet Take 40 mg by mouth once daily. furosemide (LASIX ORAL) Take 20 mg by mouth. metoprolol succinate ER (TOPROL XL) 50 mg 24 hr tablet q 24 HR. omeprazole (PRILOSEC) 20 mg capsule omeprazole 20 mg capsule,delayed release TAKE 2 CAPSULES BY MOUTH EVERY DAY methylPREDNISolone (MEDROL DOSE-PACK) 4 mg Dose-Pack As Instructed per package (Patient not taking: No sig reported) gabapentin (NEURONTIN) 300 mg capsule Take one capsule at bedtime for 3-5 days, then one in the morning and one at night for 3-5 days. Then increase to one capsule three times daily if tolerating well. HYDROcodone-acetaminophen (NORCO) 5-325 mg per tablet Take 1 tablet by mouth every 6 hours as needed. (Patient not taking: No sig reported) cyclobenzaprine (FLEXERIL) 10 mg tablet Take 10 mg by mouth three times daily as needed. (Patient not taking: No sig reported) fluticasone (FLONASE) 50 mcg/actuation nasal spray Use 1 [place] in each nostril as needed. (Patient not taking: No sig reported) desvenlafaxine ER (PRISTIQ) 50 mg 24 hr tablet Take 50 mg by mouth once daily. (Patient not taking: No sig reported) ezetimibe (ZETIA) 10 mg tablet Take 10 mg by mouth once daily. (Patient not taking: No sig reported) REVIEW OF SYSTEMS: 14 systems reviewed and otherwise negative unless mentioned above. OBJECTIVE: PHYSICAL EXAM There were no vitals taken for this visit. GENERAL APPEARANCE: Well nourished, well developed, and no apparent distress. NEURO PSYCH: Patient oriented to person, place, and time. Mood pleasant. Benign affect. CARDIOVASCULAR: No edema noted. RESPIRATORY: non-labored breathing, no grunting/flaring/retractions SKIN: Head, neck, trunk, and extremities dry, intact and without lesions. MUSCULOSKELETAL VISUAL INSPECTION Posture: normal posture and alignment PALPATION: No tenderness to palpation lumbar spine SPINE ROM: LUMBAR ROM: WFL MUSCLE BULK: Normal and symmetrical in the upper & lower extremities. MUSCLE TONE: Normal. MOTOR: 5/5 bilateral LE hip flexion, knee flexion, knee extension, ankle dorsiflexion, plantarflexion, EHL. Can tell a slight weakness in left ankle compared to right. SENSORY: sensation intact to light touch BLE REFLEXES: 2+ bilateral patella. 2+ right achilles, trace left. unable to elicit medial hamstring BL. LONG TRACT SIGNS: No clonus. GAIT: Non-antalgic. Able to stand on toes and heels. Able to perform tandem gait. PERIPHERAL JOINT ROM: HIP ROM: Full ROM Without Pain STRAIGHT LEG TEST: Pain testing R>L from back to thigh Data Review: All images/reports listed below were personally reviewed by me unless otherwise indicated. Imaging and outside records independently reviewed 08/10/22 MRI lumbar wo contrast: Anatomic variant: None. Localizer images: Large right upper pole renal cyst and a smaller cysts left inferior pole renal cyst. Alignment: Straightening of the normal lumbar lordosis. Trace retrolisthesis of L5 on S1. Bone marrow signal/fracture: No evidence of pathologic marrow infiltration. No evidence of prior fracture. Intraosseous hemangioma in L3 vertebral body. Type II endplate marrow degenerative signal changes at L4-L5 and L5-S1. Moderate disc space narrowing at these levels, progressed at the L4-L5 level from 2017. Conus: The conus is within normal limits of signal intensity and morphology, terminating at L1. Paraspinal soft tissues: Paraspinal soft tissues are within normal limits. Lower thoracic spine: Visualized lower thoracic canal and foramina are patent. L1-L2: Spinal canal is patent. Shallow annular bulging slightly flattens the ventral thecal sac. Moderate degenerative facet arthrosis. No significant foraminal stenosis. L2-L3: Moderate spinal canal stenosis secondary to disc bulging and dorsal osteophytic endplate spurring. Moderate degenerative facet arthrosis. Mild left greater than right foraminal stenosis. L3-L4: Mild spinal canal stenosis secondary to disc bulging and dorsal osteophytic endplate spurring. Mild degenerative facet arthrosis. Mild left greater than right foraminal stenosis. L4-L5: Mild spinal canal stenosis secondary to disc bulging and dorsal osteophytic endplate spurring. Moderate degenerative facet arthrosis. Moderate left greater than right foraminal stenosis. L5-S1: Mild spinal canal stenosis secondary to disc bulging, dorsal osteophytic endplate spurring and trace retrolisthesis. Moderate degenerative facet arthrosis. Severe bilateral foraminal stenosis. Sacrum and iliac wings: The visualized sacrum and iliac wings are within normal limits. IMPRESSION: Lumbar spondylosis, progressed from 10/18/2016, particularly in the lower lumbar spine. There is however up to moderate spinal canal stenosis at L2-L3. Foraminal stenosis is up to severe in degree bilaterally at L5-S1. 10/18/2016 MRI lumbar spine with and without contrast, [facility]: Comparison is made to the March 31, 2006 MRI. There are laminotomy related findings at L4 and L5 on the patient's left. The herniated disc at L5-S1 reported on prior exam has been removed. There is no residual or recurrent disc radiation L5-S1. The volume of disc protrusion toward the left at L4-5 has been reduced. There is a small amount of residual or recurrent disc protrusion toward the left at L4-5. Margins of the L4-5 residual or recurrent protrusion enhanced intensities, suggesting enhancing scar or hyperemic disc margin. There is a small amount of epidural scarring located anteriorly at the L5-S1 level, greater to the right of midline than the left. Spinal canal caliber is well-maintained throughout. Intervertebral discs above L4 are unremarkable. There is mild apophyseal joint arthrosis, greatest at L4-5. Anterior wedging of vertebrae at the thoracolumbar junction has not changed. There is no marrow edema. Incidentally noted to the vertebral body hemangioma at L3 that has not changed. There is no extension into the surrounding soft tissues. The conus medullaris is normal. The cauda equina is unremarkable. Impression: Unremarkable postop findings. There are small enhancing disc protrusion versus adjacent epidural scarring toward the left at L4-5, perhaps affecting the left L5 nerve root as it extends into his lateral recess. 09/24/2016 XR lumbosacral spine, [facility]: There is straightening of the normal lordotic curvature. There is disc space narrowing throughout the lumbar spine most severe at L5-S1 but also present at L3-4 and L4-5. There is degenerative spurring anteriorly at the L4-5 and L5-S1 disc space. These have slightly progressed since previous study of 08/27/2010. Mild anterior wedging of L1 remains unchanged. No acute compression fracture seen. No intrinsic bony lesion. Facet arthropathy noted in the lower lumbar spine at L5-S1. Soft tissues unremarkable. ASSESSMENT/PLAN DIAGNOSIS: M54.41, G89.29 Chronic right-sided low back pain with right-sided sciatica (primary encounter diagnosis) M54.16 Radiculopathy of lumbar region ASSESSMENT: Darius Thacker is a 62 year old male with PMH of L5-S1 discectomy and chronic left foot drop, CAD s/p stent on ASA 81 mg, JOSE, presenting for f/u of pain. Pain was previously right low back/buttock, intermittently to right posterior thigh, sometimes to right calf to lateral ankle. Previously to dorsal foot. Patient completed PT and home exercise program was reporting 60 to 70% improvement, but was still limited with prolonged ambulation. MRI lumbar spine showed severe L5-S1 foraminal stenosis. He is now s/p right L5 TFESI and pain has reduced to intermittent and minimal. He is able to walk longer and sit in a car longer without worsening the pain. When pain does occur now it I primarily the right low back to right buttock. No longer having pain radiating to the right posterior thigh or right lateral calf to ankle. Not requiring medications for pain relief at this time. Patient is happy with his progress and will monitor his symptoms for now. He can follow up as needed. Repeat injection can be considered if pain worsens. PLAN: 1) Imaging/Diagnostic Studies: -Imaging reviewed as above. 2) Therapy/Rehabilitation: -Continue PT HEP. -Activities and exercise as tolerated. 3) Pharmacological Management: -no changes 4) Spine/MSK Interventions: -none 5) Consultations: -none 6) Follow -up: -As needed. -Patient instructed to call/seek urgent medical care with worsening of symptoms or change of neurological status. 7) Future treatment considerations: -Repeat Right L5 TFESI -Gabapentin (patient does not prefer medications) -Integrative Medicine -Spine Surgery evaluation Total Time Spent: 5-10 minutes SIGNATURE: Barber Snow DO PATIENT NAME: Darius Thacker DATE: October 31, 2022 TIME: 4:13 PM documented in this encounter [facility] 10-11-2022 Miscellaneous Notes Tried to reach patient for post-injection phone call. Left office number for patient to call back. Vilynx message/questionairre sent regarding post-injection. documented in this encounter [facility] 09-27-2022 Miscellaneous Notes Phoned patient and spoke with Jb to confirm appointment for Darius Thacker for spine procedure on 10/04/2022. Patient notified that Percy will call patient the night before with the time to arrive for injection. Patient verbalized understanding of the following: -Provided education on spine procedure and answered questions related to spine injection procedure. -Patient notified effective 01/04/2021 asymptomatic adult patients, regardless of vaccination status, will no longer require COVID-19 testing before undergoing outpatient procedure -Client Service Associate is needed to drive patient home. -NPO 6 hours prior to appointment, ok to take morning medications with sip of water. -Not to take any pain medications the day of injection to see how well injection works. -Do not take any NSAIDs/anti-inflammatories (mobic, ibuprofen, advil, aleve, etc) the day of procedure for all lumbar, hip, and sacroiliac joint procedures. Hold NSAIDs for 1 day prior to procedure for cervical cases. Allergies reviewed: Yes Allergy to IV contrast dye or steroids: No Taking any antiplatelet/anticoagulant (blood thinners): No Taking aspirin 81mg: Yes, requested to hold the day of procedure. Any open wounds/sores?: No Taking Antibiotics?: No Diabetic: No Patient given number [phone], spine injections schedulers, if there is any need to reschedule/ change appointment during normal business hours. Active MyChart users were informed to read MyChart procedure instructions prior to appointment. AMBULATORY PATIENT EDUCATION TOPIC: SPINE INJECTION PROCEDURE, PRE-INJECTION AND POST- INJECTION INSTRUCTIONS READINESS TO LEARN COGNITIVE ABILITY: ALERT AND ORIENTED MOTIVATION TO LEARN: Eager FAMILY SUPPORT: Unable to assess - Family not present INSTRUCTION PROVIDED TO: Patient PATIENT LEARNS BEST BY: INDIVIDUAL INSTRUCTION FACTORS AFFECTING LEARNING: None PHYSICAL LIMITATIONS AFFECTING LEARNING: None LEARNING RESPONSE METHOD OF INSTRUCTION: TEACH BACK AND INDIVIDUAL INSTRUCTION PATIENT / FAMILY RESPONSE: VERBALIZED UNDERSTANDING OF PRE AND POST INJECTION INSTRUCTIONS documented in this encounter [facility] 08-10-2022 Miscellaneous Notes Radiology Service Progress Note PATIENT NAME: Darius Thacker DATE OF SERVICE: August 10, 2022 TIME: 3:17 PM PATIENT IDENTITY VERIFICATION COMPLETED USING TWO (2) IDENTIFIERS: Name and Date of confirmed by patient verbally and Name and Date of confirmed by identification band. FALL SCREENING: Has the patient had 2 falls in the last year or 1 fall with injury or currently using an Ambulatory Assistive Device (Walker, Cane, Wheelchair, Crutches, etc.)? No PATIENT GENDER DATA: Male PATIENT RELEVANT IMPLANT DATA REVIEWED: Yes RADIOLOGY DEPARTMENT: MR; Exam(s) Completed: Spine: Lumbar spine PERIPHERAL IV DATA: Not applicable SIGNED BY: Fernando Walker August 10, 2022 3:17 PM documented in this encounter [facility] 07-25-2022 History of Present illness Narrative Images from the original note were not included. [facility] - Medical Spine Established Patient DISTANCE HEALTH VISIT This Team Access Model visit is a virtual encounter. It required patient-provider interaction for the medical decision making as documented below. Darius Thacker has consented to this telephone or audio/video encounter. Persons Present: patient SUBJECTIVE HISTORY OF PRESENT ILLNESS: Darius Thacker is a 62 year old male who presents with a chief complaint of low back pain. Last visit: PT, Medrol dose pack, Gabapentin. Patient was attending PT and had improvement of most of his pain, 70-80%. Last week he was walking on his treadmill, about 6 miles, and afterward noted the pain was returning and limited him trying to walk the next day. Pain is right low back/buttock radiates down RLE posterolaterally to the ankle, associated with tingling. Pain is currently 2-3/10. Initial visit 05/18/22: Prior episodes: low back pain, previous herniated disc at L5-S1 s/p microdiscectomy 2005. Current pain began 1 month ago without inciting event. Pain is right low back radiates to RLE laterally down to dorsal foot. Denies numbness/tingling. Denies weakness. Denies bowel/bladder incontinence or saddle anesthesia. Reports he is used to walking 6 miles daily, but can't now due to pain. Had left foot drop s/p 2006 L5-S1 disc herniation, improved with surgery, but does still have episodes of tripping/falling. The pain is currently 4/10. The pain can get to 9/10 at the highest and 1/10 at the lowest. PAIN EVALUATION No data found in the last 1 encounters. Pain Radiation: down right leg outside of the leg and to the top of the foot. Only on the right. Aggravating Factors: Worst with Walking, Walking up incline Bending forward, sitting down prolonged, riding in truck coughing, sneezing, having a BM Alleviating Factors: Resting, standing up. Pain Ratio: Pain is 50/50 back and leg. Current Treatment: Medications Ibuprofen 400 mg - prn, minimal relief - not often Creams, patches and hemp - minimal relief Gabapentin was prescribed but he has not tried it Therapies PT: [facility], eval 05/30 - 07/20/21, has attended 2x/wk, ~ 12 visits, on hold d/t insurance right now Prior Treatment: Medications Medrol dose pack - provided some relief Therapies PT - finished for the left leg, not for the right leg 2019 - helped back pain Inversion table - no help Prior spine interventions: None Prior spine surgery: -2006 Lumbar discectomy L5-S1 Dr. Sean Veronica - symptoms resolved, caused left foot drop Previously treated by: -Spine Surgery Dr. Sean Veronica 2019. back pain with radiation to right anterior thigh. Chronic left drop foot, but not worsening. All in all I am happy with his clinical condition. He is to come back to see me on an as-needed basis for possible injections or repeat therapy, as well. Certainly surgery is the last resort. 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 Litigation: No Workers' Compensation: No YELLOW & BLUE FLAGS No-Neg Attitude; Back Pain is Disabling No-Avoiding Activity (for Fear of Pain) No-Depression or Anxiety Disorders No-Social Problems No-Substance Use Disorder No-Job Dissatisfaction No-Financial Disincentives Patient Entered Questionnaires Spine Questions 05/15/2022 07/18/2022 Pain Location: Lower back Lower back Pain Duration: Less than 1 month - Symptoms from neck/cervical spine: Yes No Employment Status: Other - Off work 1 month or more due to back/neck pain: No - Applied for/receive disability/WC due to low back/neck pain No - Involved in law suit/legal claim: No - Spine Red Flags 05/15/2022 Any type of cancer: No Unexplained fever: No Bowel or bladder disfunction: No Unintentional weight loss: No Osteoporosis: No Neck Questionnaires 05/15/2022 Benzel Modified ANGELICA Score 17 (A lower score indicates increased pain and issues.) PROMIS Score Percentiles Physical Health 05/15/2022 07/18/2022 Physical Function Percentile 2 18* Sleep Percentile 21* 34 Fatigue Percentile 14 54 Pain Interference Percentile 4 27* PROMIS SOCIAL ROLE SCORE 07/18/2022 Social Role Satisfaction Percentile 14 PROMIS Global Health Scale 05/15/2022 07/18/2022 Physical Health Percentile 10 41 Mental Health Percentile - 73 Percentiles provide an indication of how the patient's score ranks in relation to the general population. Higher percentile rankings indicate better function/quality of life. 50th percentile is the average of the general population and indicates half of respondents had a worse score. Depression Screening: PHQ-9 11/07/2014 05/15/2022 07/18/2022 Score 7 0 1 PHQ-9 Self Harm 05/15/2022 07/18/2022 Question 9 Not at all Not at all PHQ-9 Self-Harm (Item 9) response options: 0 Not at all 1 Several days 2 More than half the days 3 Nearly every day PHQ-9 Levels: 0-4 No - mild depression 5-9 Mild depression 10-14 Moderate depression 15-19 Moderately severe depression 20-27 Severe depression ACTIVE PROBLEM LIST Hyperlipidemia Diverticulosis Fracture, Ankle Jose (Obstructive Sleep Apnea) Elevated Liver Enzymes Hypertriglyceridemia Osteoarthritis Asthma Kidney Stones Lumbar Transverse Process Fracture (Hcc) PAST MEDICAL HISTORY Diagnosis Date Asthma Diverticulosis Elevated liver enzymes Fracture, ankle left Hyperlipidemia Hypertriglyceridemia Kidney stones JOSE (obstructive sleep apnea) CPAP Osteoarthritis PAST SURGICAL HISTORY Procedure Laterality Date BACK SURGERY HX 2006 herniated disc by Tamia Veronica COLONOSCOPY 2013 Social History Tobacco Use Smoking status: Former Packs/day: 1.00 Years: 15.00 Pack years: 15.00 Types: Cigarettes Smokeless tobacco: Never Substance Use Topics Alcohol use: Yes Alcohol/week: 7.5 standard drinks Types: 3 Cans of Beer (12oz) per week Drug use: No FAMILY HISTORY Problem Relation Age of Onset other (myocardial infarction [Other]) Father Age 32 other (CABG [Other]) Father age 55 other (myocardial infarction [Other]) Paternal Aunt Age Cancer Mother Diabetes Father other (high blood pressure [Other]) Father Arthritis Father ALLERGIES No Known Allergies CURRENT MEDICATIONS: aspirin-caffeine 1,000-150 mg pwpk Take 81 mg by mouth. gemfibrozil (LOPID) 600 mg tablet Take 600 mg by mouth. lisinopril (ZESTRIL, PRINIVIL) 10 mg tablet Take 10 mg by mouth. omeprazole magnesium (PRILOSEC ORAL) Take 20 mg by mouth twice daily. rosuvastatin (CRESTOR) 40 mg tablet Take 40 mg by mouth once daily. furosemide (LASIX ORAL) Take 20 mg by mouth. metoprolol succinate ER (TOPROL XL) 50 mg 24 hr tablet q 24 HR. omeprazole (PRILOSEC) 20 mg capsule omeprazole 20 mg capsule,delayed release TAKE 2 CAPSULES BY MOUTH EVERY DAY methylPREDNISolone (MEDROL DOSE-PACK) 4 mg Dose-Pack As Instructed per package gabapentin (NEURONTIN) 300 mg capsule Take one capsule at bedtime for 3-5 days, then one in the morning and one at night for 3-5 days. Then increase to one capsule three times daily if tolerating well. HYDROcodone-acetaminophen (NORCO) 5-325 mg per tablet Take 1 tablet by mouth every 6 hours as needed. (Patient not taking: Reported on 05/18/2022) cyclobenzaprine (FLEXERIL) 10 mg tablet Take 10 mg by mouth three times daily as needed. fluticasone (FLONASE) 50 mcg/actuation nasal spray Use 1 [place] in each nostril as needed. (Patient not taking: Reported on 05/18/2022) desvenlafaxine ER (PRISTIQ) 50 mg 24 hr tablet Take 50 mg by mouth once daily. (Patient not taking: Reported on 05/18/2022) ezetimibe (ZETIA) 10 mg tablet Take 10 mg by mouth once daily. (Patient not taking: Reported on 05/18/2022) REVIEW OF SYSTEMS: 14 systems reviewed and otherwise negative unless mentioned above. OBJECTIVE: PHYSICAL EXAM There were no vitals taken for this visit. GENERAL APPEARANCE: Well nourished, well developed, and no apparent distress. NEURO PSYCH: Patient oriented to person, place, and time. Mood pleasant. Benign affect. Speech: clear, calm, normal rate and tone RESPIRATORY: non-labored breathing, no grunting/flaring/retractions SKIN: No apparent lesions head/neck Data Review: All images/reports listed below were personally reviewed by me unless otherwise indicated. Imaging and outside records independently reviewed 10/18/2016 MRI lumbar spine with and without contrast, [facility]: Comparison is made to the March 31, 2006 MRI. There are laminotomy related findings at L4 and L5 on the patient's left. The herniated disc at L5-S1 reported on prior exam has been removed. There is no residual or recurrent disc radiation L5-S1. The volume of disc protrusion toward the left at L4-5 has been reduced. There is a small amount of residual or recurrent disc protrusion toward the left at L4-5. Margins of the L4-5 residual or recurrent protrusion enhanced intensities, suggesting enhancing scar or hyperemic disc margin. There is a small amount of epidural scarring located anteriorly at the L5-S1 level, greater to the right of midline than the left. Spinal canal caliber is well-maintained throughout. Intervertebral discs above L4 are unremarkable. There is mild apophyseal joint arthrosis, greatest at L4-5. Anterior wedging of vertebrae at the thoracolumbar junction has not changed. There is no marrow edema. Incidentally noted to the vertebral body hemangioma at L3 that has not changed. There is no extension into the surrounding soft tissues. The conus medullaris is normal. The cauda equina is unremarkable. Impression: Unremarkable postop findings. There are small enhancing disc protrusion versus adjacent epidural scarring toward the left at L4-5, perhaps affecting the left L5 nerve root as it extends into his lateral recess. 09/24/2016 XR lumbosacral spine, [facility]: There is straightening of the normal lordotic curvature. There is disc space narrowing throughout the lumbar spine most severe at L5-S1 but also present at L3-4 and L4-5. There is degenerative spurring anteriorly at the L4-5 and L5-S1 disc space. These have slightly progressed since previous study of 08/27/2010. Mild anterior wedging of L1 remains unchanged. No acute compression fracture seen. No intrinsic bony lesion. Facet arthropathy noted in the lower lumbar spine at L5-S1. Soft tissues unremarkable. ASSESSMENT/PLAN DIAGNOSIS: M54.41, G89.29 Chronic right-sided low back pain with right-sided sciatica (primary encounter diagnosis) M54.17 Lumbosacral radiculitis M54.16 Radiculopathy of lumbar region ASSESSMENT: Darius Thacker is a 62 year old male with PMH of L5-S1 discectomy, CAD s/p stent on ASA 81 mg, JOSE, presenting for f/u of pain, now located right low back/buttock radiating to RLE posterolaterally to the ankle, previously to dorsal foot. Following last visit patient was attending PT and noting 70-80% improvement until last week after walking 6 miles on his treadmill and noticed the pain returning. Suspect right L5 radicular pain. He is not interested in trying Gabapentin at this time. Due to persistent pain will obtain MRI lumbar spine to further evaluate and determine next steps in treatment. PLAN: 1) Imaging/Diagnostic Studies: -MRI lumbar spine wo contrast. Patient with pain right low back/buttock down RLE posterolaterally to the ankle. Has had some improvement with PT, but continues to have exacerbations and be limited in walking. Has used NSAIDs with minimal relief. Pain is limiting his ability to exercise by walking and affecting quality of life. MRI lumbar spine to evaluate for nerve compression and determine interventional planning. -Imaging reviewed as above. 2) Therapy/Rehabilitation: -Continue PT HEP. -Activities and exercise as tolerated. 3) Pharmacological Management: -Valium for MRI anxiety. -Discussed option to trial Gabapentin, but he defers. 4) Spine/MSK Interventions: -none 5) Consultations: -none 6) Follow -up: -After MRI -Patient instructed to call/seek urgent medical care with worsening of symptoms or change of neurological status. 7) Future treatment considerations: -pending MRI results, could consider LESI, likely to target L5 pathology. Total Time Spent: 21-30 minutes SIGNATURE: Barber Snow DO PATIENT NAME: Darius Thacker DATE: July 25, 2022 TIME: 4:26 PM documented in this encounter [facility] 07-22-2022 Miscellaneous Notes Spoke to Em [facility] she states needs Verbal permission from patient to be able to speak to and can discuss claim with her. Has told her this. It is an [place] procession issue. Called spouse advised her that she needs to have patient call Em and give her verbal permission she can then discuss claim with her. She verbalized understanding. Left message on voicemail for Em [facility] to call office back. Pt called, states they received a call from their insurance ([employer]) and the diagnosis code that we gave for physical therapy (M54.41) is not a valid diagnosis code and they want to charge patient for the visits he has had and that future ones would also not be covered unless we can provide a valid diagnosis code for him? Asking if we could submit diagnosis to them. We can also reach out to the office of the PT he is seeing, their contact is Em [facility] - ph. [phone] Please contact patient to advise of any details/further questions. Varinder Monet Pss documented in this encounter [facility] 05-18-2022 History of Present illness Narrative Images from the original note were not included. [facility] - Medical Spine Initial Exam SUBJECTIVE HISTORY OF PRESENT ILLNESS: Darius Thacker is a 62 year old male who presents with a chief complaint of low back pain. Prior episodes: low back pain, previous herniated disc at L5-S1 s/p microdiscectomy 2005. Current pain began 1 month ago without inciting event. Pain is right low back radiates to RLE laterally down to dorsal foot. Denies numbness/tingling. Denies weakness. Denies bowel/bladder incontinence or saddle anesthesia. Reports he is used to walking 6 miles daily, but can't now due to pain. Had left foot drop s/p 2006 L5-S1 disc herniation, improved with surgery, but does still have episodes of tripping/falling. The pain is currently 4/10. The pain can get to 9/10 at the highest and 1/10 at the lowest. PAIN EVALUATION 05/18/2022 1407 Pain Level: 5 Pain Location: Back-Lower down rt leg to ankle Description: Aching;Sharp;Throbbing;Stabbing Duration Amount of Time: 1 Duration Units: Months Frequency: Intermittent Comments: sitting makes it worse Pain Radiation: down right leg outside of the leg and to the top of the foot. Only on the right. Aggravating Factors: bending forward, sitting down prolonged, riding in truck coughing, sneezing, having a BM Walking, Walking up incline Alleviating Factors: Resting, standing up. Pain Ratio: Pain is 50/50 back and leg. Current Treatment: Medications Ibuprofen 400 mg - prn, minimal relief. Creams, patches and hemp - minimal relief Therapies Inversion table - no help Prior Treatment: Medications advil Therapies PT - finished for the left leg, not for the right leg 2019 - helped back pain Prior spine interventions: None Prior spine surgery: -2006 Lumbar discectomy L5-S1 Dr. Sean Veronica - symptoms resolved, caused left foot drop Previously treated by: -Spine Surgery Dr. Sean Veronica 2019. back pain with radiation to right anterior thigh. Chronic left drop foot, but not worsening. All in all I am happy with his clinical condition. He is to come back to see me on an as-needed basis for possible injections or repeat therapy, as well. Certainly surgery is the last resort. 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 Litigation: No Workers' Compensation: No YELLOW & BLUE FLAGS No-Neg Attitude; Back Pain is Disabling No-Avoiding Activity (for Fear of Pain) No-Depression or Anxiety Disorders No-Social Problems No-Substance Use Disorder No-Job Dissatisfaction No-Financial Disincentives Patient Entered Questionnaires Spine Questions 05/15/2022 Pain Location: Lower back Pain Duration: Less than 1 month Symptoms from neck/cervical spine: Yes Employment Status: Other Off work 1 month or more due to back/neck pain: No Applied for/receive disability/WC due to low back/neck pain No Involved in law suit/legal claim: No Spine Red Flags 05/15/2022 Any type of cancer: No Unexplained fever: No Bowel or bladder disfunction: No Unintentional weight loss: No Osteoporosis: No Neck Questionnaires 05/15/2022 Benzel Modified ANGELICA Score 17 (A lower score indicates increased pain and issues.) PROMIS Score Percentiles Physical Health 05/15/2022 Physical Function Percentile 2 Sleep Percentile 21* Fatigue Percentile 14 Pain Interference Percentile 4 PROMIS Global Health Scale 05/15/2022 Physical Health Percentile 10 Percentiles provide an indication of how the patient's score ranks in relation to the general population. Higher percentile rankings indicate better function/quality of life. 50th percentile is the average of the general population and indicates half of respondents had a worse score. Depression Screening: PHQ-9 11/07/2014 05/15/2022 Score 7 0 PHQ-9 Self Harm 05/15/2022 Question 9 Not at all PHQ-9 Self-Harm (Item 9) response options: 0 Not at all 1 Several days 2 More than half the days 3 Nearly every day PHQ-9 Levels: 0-4 No - mild depression 5-9 Mild depression 10-14 Moderate depression 15-19 Moderately severe depression 20-27 Severe depression ACTIVE PROBLEM LIST Hyperlipidemia Diverticulosis Fracture, Ankle Jose (Obstructive Sleep Apnea) Elevated Liver Enzymes Hypertriglyceridemia Osteoarthritis Asthma Kidney Stones Lumbar Transverse Process Fracture (Hcc) PAST MEDICAL HISTORY Diagnosis Date Asthma Diverticulosis Elevated liver enzymes Fracture, ankle left Hyperlipidemia Hypertriglyceridemia Kidney stones JOSE (obstructive sleep apnea) CPAP Osteoarthritis PAST SURGICAL HISTORY Procedure Laterality Date BACK SURGERY HX 2006 herniated disc by Tamia Veronica COLONOSCOPY 2013 Social History Tobacco Use Smoking status: Former Packs/day: 1.00 Years: 15.00 Pack years: 15.00 Types: Cigarettes Substance Use Topics Alcohol use: Yes Alcohol/week: 7.5 standard drinks Types: 3 Cans of Beer (12oz) per week Drug use: No FAMILY HISTORY Problem Relation Age of Onset other (myocardial infarction [Other]) Father Age 32 other (CABG [Other]) Father age 55 other (myocardial infarction [Other]) Paternal Aunt Age Cancer Mother Diabetes Father other (high blood pressure [Other]) Father Arthritis Father ALLERGIES No Known Allergies CURRENT MEDICATIONS: HYDROcodone-acetaminophen (NORCO) 5-325 mg per tablet Take 1 tablet by mouth every 6 hours as needed. cyclobenzaprine (FLEXERIL) 10 mg tablet Take 10 mg by mouth three times daily as needed. fluticasone (FLONASE) 50 mcg/actuation nasal spray Use 1 [place] in each nostril as needed. desvenlafaxine ER (PRISTIQ) 50 mg 24 hr tablet Take 50 mg by mouth once daily. ezetimibe (ZETIA) 10 mg tablet Take 10 mg by mouth once daily. REVIEW OF SYSTEMS: 14 systems reviewed and otherwise negative unless mentioned above. OBJECTIVE: PHYSICAL EXAM BP 107/70 Pulse 73 Wt 74.7 kg (164 lb 9.6 oz) BMI 23.62 kg/m GENERAL APPEARANCE: Well nourished, well developed, and no apparent distress. NEURO PSYCH: Patient oriented to person, place, and time. Mood pleasant. Benign affect. CARDIOVASCULAR: No edema noted. RESPIRATORY: non-labored breathing, no grunting/flaring/retractions SKIN: Head, neck, trunk, and extremities dry, intact and without lesions. MUSCULOSKELETAL VISUAL INSPECTION Posture: normal posture and alignment PALPATION: No tenderness to palpation lumbar spine SPINE ROM: LUMBAR ROM: flexion to shins and has pain in the right leg MUSCLE BULK: Normal and symmetrical in the upper & lower extremities. MUSCLE TONE: Normal. MOTOR: 5/5 bilateral LE hip flexion, knee flexion, knee extension, ankle dorsiflexion, plantarflexion, EHL. SENSORY: sensation intact to light touch BLE REFLEXES: 2+ bilateral patella, achilles, unable to elicit medial hamstring LONG TRACT SIGNS: No clonus. No Hoffmans. BABINSKI: absent bilateral GAIT: Non-antalgic. Able to stand on toes and heels. Able to perform tandem gait. PERIPHERAL JOINT ROM: HIP ROM: Full ROM Without Pain STRAIGHT LEG TEST: +on right Seated slump + on right. Data Review: All images/reports listed below were personally reviewed by me unless otherwise indicated. Imaging and outside records independently reviewed 10/18/2016 MRI lumbar spine with and without contrast, [facility]: Comparison is made to the March 31, 2006 MRI. There are laminotomy related findings at L4 and L5 on the patient's left. The herniated disc at L5-S1 reported on prior exam has been removed. There is no residual or recurrent disc radiation L5-S1. The volume of disc protrusion toward the left at L4-5 has been reduced. There is a small amount of residual or recurrent disc protrusion toward the left at L4-5. Margins of the L4-5 residual or recurrent protrusion enhanced intensities, suggesting enhancing scar or hyperemic disc margin. There is a small amount of epidural scarring located anteriorly at the L5-S1 level, greater to the right of midline than the left. Spinal canal caliber is well-maintained throughout. Intervertebral discs above L4 are unremarkable. There is mild apophyseal joint arthrosis, greatest at L4-5. Anterior wedging of vertebrae at the thoracolumbar junction has not changed. There is no marrow edema. Incidentally noted to the vertebral body hemangioma at L3 that has not changed. There is no extension into the surrounding soft tissues. The conus medullaris is normal. The cauda equina is unremarkable. Impression: Unremarkable postop findings. There are small enhancing disc protrusion versus adjacent epidural scarring toward the left at L4-5, perhaps affecting the left L5 nerve root as it extends into his lateral recess. 09/24/2016 XR lumbosacral spine, [facility]: There is straightening of the normal lordotic curvature. There is disc space narrowing throughout the lumbar spine most severe at L5-S1 but also present at L3-4 and L4-5. There is degenerative spurring anteriorly at the L4-5 and L5-S1 disc space. These have slightly progressed since previous study of 08/27/2010. Mild anterior wedging of L1 remains unchanged. No acute compression fracture seen. No intrinsic bony lesion. Facet arthropathy noted in the lower lumbar spine at L5-S1. Soft tissues unremarkable. ASSESSMENT/PLAN DIAGNOSIS: M54.41 Acute right-sided low back pain with right-sided sciatica (primary encounter diagnosis) M54.17 Lumbosacral radiculitis ASSESSMENT: Darius Thacker is a 62 year old male with PMH of L5-S1 discectomy, CAD s/p stent on ASA 81 mg, JOSE, presenting with acute right low back pain radiating to RLE laterally down to dorsal foot. Fits with L5 distribution on the right. Previous review of MRI from 2017 showed areas of disc bulge at L4-5 and L5-1. Will hold on additional imaging at this time given no neurologic deficits or myelopathic findings at this time. Patient has not tried PT since onset of current symptoms. We will start with a medrol dose pack and PT. Recommend trial of gabapentin if the steroid does not help, prescription sent. PLAN: 1) Imaging/Diagnostic Studies: -Imaging reviewed as above. 2) Therapy/Rehabilitation: -PT referral placed for lumbar spine. -Kayla trained therapist list provided for local options, will likely go to [facility]. -Activities and exercise as tolerated. 3) Pharmacological Management: -Medrol dose pack. Avoid NSAIDs while using. -Gabapentin prescribed, 300 mg titrate to TID. Recommend he trial if medrol does not provide lasting improvement. 4) Spine/MSK Interventions: -none 5) Consultations: -none 6) Follow -up: -6 week virtual visit. -Patient instructed to call/seek urgent medical care with worsening of symptoms or change of neurological status. 7) Future treatment considerations: -MRI lumbar spine if not improving and epidural steroid injections possibly. Niles Posada DO Spine Medicine Fellow, PGY-[address] Snow. Attending Note: Gracia findings confirmed. Patient examined. Discussed with the fellow and the patient. All information in the note above was confirmed by me and edited as necessary for accurate information. Plan as outlined. SIGNATURE: Barber Snow DO PATIENT NAME: Darius Thacker DATE: May 18, 2022 TIME: 2:11 PM documented in this encounter [facility] Evaluation + Plan note No data available for this section [facility] Evaluation + Plan note Future Appointments Appointment Date:03/08/2024 09:45:00 AM Scheduled Provider:Francois PAYAN MD Location:[facility] Appointment Type:URO Office Visit Future Scheduled TestsUS Renal 03/13/23 [facility] Evaluation note Diagnosis Acute right-sided low back pain with right-sided sciatica- Primary Lumbosacral radiculitis Thoracic or lumbosacral neuritis or radiculitis, unspecified [facility]* Diagnosis Chronic right-sided low back pain with right-sided sciatica- Primary Lumbosacral radiculitis Thoracic or lumbosacral neuritis or radiculitis, unspecified Radiculopathy of lumbar region Thoracic or lumbosacral neuritis or radiculitis, unspecified [facility] noteNo assessment information available[facility]: [facility] note* Diagnosis Chronic right-sided low back pain with right-sided sciatica- Primary Radiculopathy of lumbar region Thoracic or lumbosacral neuritis or radiculitis, unspecified [facility] Diagnosis Combined forms of age-related cataract of both eyes- Primary Other and combined forms of senile cataract Myopia with astigmatism and presbyopia, bilateral Combined forms of age-related cataract of both eyes Other and combined forms of senile cataract [facility]* Diagnosis Pre-op evaluation- Primary Preoperative examination, unspecified JOSE (obstructive sleep apnea) Obstructive sleep apnea (adult) (pediatric) Uncomplicated asthma, unspecified asthma severity, unspecified whether persistent Hyperlipidemia, unspecified hyperlipidemia type Heart failure, unspecified HF chronicity, unspecified heart failure type (HCC) Essential (primary) hypertension Unspecified essential hypertension Generalized ischemic myocardial dysfunction Other specified forms of chronic ischemic heart disease Combined forms of age-related cataract of both eyes Other and combined forms of senile cataract [facility]* Diagnosis Combined forms of age-related cataract of both eyes Other and combined forms of senile cataract Combined forms of age-related cataract of both eyes Other and combined forms of senile cataract [facility] Diagnosis S/P cataract extraction and insertion of intraocular lens, left- Primary documented in this encounter [facility] note* Diagnosis Chronic right-sided low back pain with right-sided sciatica Radiculopathy of lumbar region Thoracic or lumbosacral neuritis or radiculitis, unspecified Bilateral posterior capsular opacification- Primary After-cataract, unspecified [facility] Diagnosis Left posterior capsular opacification- Primary After-cataract, unspecified Pseudophakia of both eyes Lens replaced by other means documented in this encounter [facility] note* Diagnosis Keratoconjunctivitis sicca of both eyes not specified as Sjogren's- Primary Keratoconjunctivitis sicca, not specified as Sjogren's 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 of both eyes Pinguecula of left eye Pinguecula Pterygium, right Pseudophakia of both eyes Lens replaced by other means History of YAG laser capsulotomy of lens, left documented [facility] Discharge instructions No data available for this [facility] data available for this section [facility] Summary Purpose Family History No Family History Records FoundNo Family History Records FoundNo Family History Records FoundNo Family History Records FoundNo Family History Records FoundNo Family History Records FoundNo Family History Records Found Advance Directives No Advanced Directives Records Found Advance Directive Response Recorded Date/ Time Advance Directives No November 30, 9 9:30am Reason for Referral Specialty Diagnoses / Procedures Referred By Alise t Referred To Contact [facility] Diagnoses Acute right-sided low back pain with right-sided sciatica Lumbosacral radiculitis Procedures CONSULT TO PHYSICAL THERAPY PHYSICAL THERAPY EVALUATION HIGH COMPLEX 45 MINS Barber Snow DO [address] [place] [address] [facility] [address] [place] [address] Referral ID Status Reason Start Date Expiration Date Visits Requested Visits Authorized [id number] Pending Review Auto-Generat ed Referral 05/18/2022 05/18/2023 1 1 Specialty Diagnoses / Procedures Referred By Alise lugo Referred To Contact [facility] Diagnoses Chronic right-sided low back pain with right-sided sciatica Radiculopathy of lumbar region Procedures MRI LUMBAR SPINE WO IVCON MRI SPINAL CANAL LUMBAR W/O CONTRAST MATERIAL Barber Snow DO [address] [place] [address] [facility] Referral ID Status Reason Start Date Expiration Date V isits Requested Visits Authorized [id number] Closed Auto-Generate d Referral 07/25/2022 08/24/2022 1 1 Specialty Diagnoses / Procedures Referred By Alise lugo Referred To Contact [facility] Diagnoses Chronic right-sided low back pain with right-sided sciatica Radiculopathy of lumbar region Procedures MRI LUMBAR SPINE WO IVCON MRI SPINAL CANAL LUMBAR W/O CONTRAST MATERIAL Barber Snow DO [address] [place] [address] [id number] Chief Complaint and Reason for Visit Chief Complaint Brant only; back Additional Source Comments (unrecognized sect ion and content) No Status Records FoundNo Status Records FoundNo Status Records FoundNo Status Records FoundNo Status Records FoundNo Status Records FoundNo Status Records Found INFORMATION SOURCE (unrecogn ized section and content) DATE CREATED AUTHOR 10/23/2018 [facility] DATE CREATED AUTHOR AUTHOR'S ORGANIZ ATION 10/19/2022 [facility] DATE CREATED AUTHOR AUTHOR'S ORGANIZ ATION 11/12/2022 [facility] DATE CREATED AUTHOR AUTHOR'S ORGANIZ ATION 03/16/2023 [facility] DATE CREATED AUTHOR AUTHOR'S ORGANIZ ATION 06/29/2023 [facility] DATE CREATED AUTHOR AUTHOR'S ORGANIZ ATION 10/26/2023 [facility] DATE CREATED AUTHOR AUTHOR'S ORGANIZ ATION 11/17/2023 [facility] EPIC Source Comments (unrecognize d section and content) In the event this informatio n is protected by the Federal Confidentiality of Alcohol and Drug Abuse Patient Records regulations: The Federal rules restrict any use of the information to criminally investigate or prosecute any alcohol or drug abuse patient.[facility] the event this information is protected by the Federal Confidentiality of Alcohol and Drug Abuse Patient Records regulations: The Federal rules restrict any use of the information to criminally investigate or prosecute any alcohol or drug abuse patient.[facility] the event this information is protected by the Federal Confidentiality of Alcohol and Drug Abuse Patient Records regulations: The Federal rules restrict any use of the information to criminally investigate or prosecute any alcohol or drug abuse patient.[facility] the event this information is protected by the Federal Confidentiality of Alcohol and Drug Abuse Patient Records regulations: The Federal rules restrict any use of the information to criminally investigate or prosecute any alcohol or drug abuse patient.[facility] Health[facility] the event this information is protected by the Federal Confidentiality of Alcohol and Drug Abuse Patient Records regulations: The Federal rules restrict any use of the information to criminally investigate or prosecute any alcohol or drug abuse patient.[facility] the event this information is protected by the Federal Confidentiality of Alcohol and Drug Abuse Patient Records regulations: The Federal rules restrict any use of the information to criminally investigate or prosecute any alcohol or drug abuse patient.[facility] the event this information is protected by the Federal Confidentiality of Alcohol and Drug Abuse Patient Records regulations: The Federal rules restrict any use of the information to criminally investigate or prosecute any alcohol or drug abuse patient.[facility] the event this information is protected by the Federal Confidentiality of Alcohol and Drug Abuse Patient Records regulations: The Federal rules restrict any use of the information to criminally investigate or prosecute any alcohol or drug abuse patient.[facility] the event this information is protected by the Federal Confidentiality of Alcohol and Drug Abuse Patient Records regulations: The Federal rules restrict any use of the information to criminally investigate or prosecute any alcohol or drug abuse patient.[facility] the event this information is protected by the Federal Confidentiality of Alcohol and Drug Abuse Patient Records regulations: The Federal rules restrict any use of the information to criminally investigate or prosecute any alcohol or drug abuse patient.[facility] the event this information is protected by the Federal Confidentiality of Alcohol and Drug Abuse Patient Records regulations: The Federal rules restrict any use of the information to criminally investigate or prosecute any alcohol or drug abuse patient.[facility] Health[facility] the event this information is protected by the Federal Confidentiality of Alcohol and Drug Abuse Patient Records regulations: The Federal rules restrict any use of the information to criminally investigate or prosecute any alcohol or drug abuse patient.[facility] Health[facility] the event this information is protected by the Federal Confidentiality of Alcohol and Drug Abuse Patient Records regulations: The Federal rules restrict any use of the information to criminally investigate or prosecute any alcohol or drug abuse patient.[facility] HealthIn the event this information is protected by the Federal Confidentiality of Alcohol and Drug Abuse Patient Records regulations: The Federal rules restrict any use of the information to criminally investigate or prosecute any alcohol or drug abuse patient.[facility] Health[facility] the event this information is protected by the Federal Confidentiality of Alcohol and Drug Abuse Patient Records regulations: The Federal rules restrict any use of the information to criminally investigate or prosecute any alcohol or drug abuse patient.[facility] Health[facility] the event this information is protected by the Federal Confidentiality of Alcohol and Drug Abuse Patient Records regulations: The Federal rules restrict any use of the information to criminally investigate or prosecute any alcohol or drug abuse patient.[facility] Reason for Visit (unrecogniz ed section and content) Reason Comments New Patient Lower back pain down to rt ankle Reason Comments Orders Reason Comments Leg Pain Reason Comments Preparations For Procedures Pre-injectio n call Reason Comments post injection follow up Reason Comments Low Back Pain Reason Comments Cataract Evaluation Reason Comments Schedule Surgery Reason Comments Anesthesia Consult Left eye cataract Reason Comments Pre-Op Exam Reason Onset Date Comments Refill Request 01/13/2023 Reason Comments refraction before surgery Specialty Diagnoses / Procedures Referred By Contac t Referred To Contact [facility] Diagnoses Combined forms of age-related cataract of both eyes Myopia with astigmatism and presbyopia, bilateral Procedures XCAPSL CTRC RMVL INSJ IO LENS PROSTH W/O ECP OPH BMTRY PRTL COHER INTRFRMTRY IO LENS PWR DELMIS PHACOEMULSIFICATION CATARACT IMPLANT INTRAOCULAR LENS W/O ENDOSCOPIC CYCLOPHOTOCOAGULATION OPHTHALMIC BIOMETRY BY PARTIAL COHERENCE INTERFEROMETRY W/INTRAOCULAR LENS POWER CALCULATION [facility] [address] [place] [address] Referral ID Status Reason Start Date Expiration Date Visits Re quested Visits Authorized [id number] 1 1 Specialty Diagnoses / Procedures Referred By Alise lugo Referred To Contact [facility] Diagnoses Chronic right-sided low back pain with right-sided sciatica Radiculopathy of lumbar region Procedures MRI LUMBAR SPINE WO IVCON MRI SPINAL CANAL LUMBAR W/O CONTRAST MATERIAL Barber Snow DO [address] [place] [address] [place] [id number] Referral ID Status Reason Start Date Expiration Date V isits Requested Visits Authorized [id number] Closed Auto-Generate d Referral 07/25/2022 08/24/2022 1 1 Reason Comments Posterior Capsule Opacification Evaluati on Reason Comments Foreign Body Sensation Care Teams (unrecognized sec tion and content) Rd Manager Relationship Specialty Start Date End Date Maria D Petersen PCP - General Family Medicine 02/14/14 Rd Manager Relationship Specialty Start Date End Date Maria D Petersen PCP - General Family Medicine 02/14/14 Rd Manager Relationship Specialty Start Date End Date Maria D Petersen PCP - General Family Medicine 02/14/14 Rd Manager Relationship Specialty Start Date End Date Maria D Petersen PCP - General Family Medicine 02/14/14 Rd Manager Relationship Specialty Start Date End Date Maria D Petersen PCP - General Family Medicine 02/14/14 Team Status: Active Member Role Status Dates Maria D Petersen PA-C Primary Care Provider Active Team Status: Inactive Member Role Status Dates Maria D Petersen PA-C Primary Care Provider Active Barber Snow Jr, DO Attending Provider Active Rd Manager Relationship Specialty Start Date End Date Maria D Petersen PCP - General Family Medicine 02/14/14 Rd Manager Relationship Specialty Start Date End Date Maria D Petersen PCP - General Family Medicine 02/14/14 Rd Manager Relationship Specialty Start Date End Date Nicola Maria D Bernal PCP - [facility] 02/14/14 Rd Manager Relationship Specialty Start Date End Date Maria D Petersen Gabe PCP [facility] 02/14/14 Rd Manager Relationship Specialty Start Date End Date Maria D Petersen PCP [facility] 02/14/14 Rd Manager Relationship Specialty Start Date End Date Maria D Petersen PA-C [facility] 02/14/14 Rd Manager Relationship Specialty Start Date End Date Maria D Petersen PA-C PCP [facility] 02/14/14 Rd Manager Relationship Specialty Start Date End Date Maria D Petersen PA-C [facility] 02/14/14 Rd Manager Relationship Specialty Start Date End Date Maria D Petersen PA-C [facility] 02/14/14 Goals (unrecognized section and content) Goals may be documented in a n alternate section FOR RECORDS PERTAINING TO PATIENTS WHO ARE OR HAVE BEEN ENROLLED IN A CHEMICAL DEPENDENCY/SUBSTANCEABUSE PROGRAM, SOME INFORMATION MAY BE OMITTED. This clinical summary was aggregated from multiple sources. Caution should be exercised in using it in the provision of clinical care. This summary normalizes information from multiple sources, and as a consequence, information in this document may materially change the coding, format and clinical context of patient data. In addition, data may be omitted in some cases. CLINICAL DECISIONS SHOULD BE BASED ON THE PRIMARY CLINICAL RECORDS. [facility] provides no warranty or guarantee of the accuracy or completeness of information in this document.
[2024-01-17 15:40] LABS: Anion Gap 17.4; BUN Creatinine Ratio 19.8; Calcium 9.2 mg/dL (8.5-10.1); Carbon Dioxide 24.7 mmol/L (21.0-32.0); Chloride 96 mmol/L (98-107); Estimated GFR (African America >60 (>=60); Estimated GFR (Non-African Ame >60 (>=60); Glucose 107 mg/dL (74-106); Potassium 4.1 mmol/L (3.5-5.1); Sodium 134 mmol/L (136-145)
== END 2024-01-17 10:48 | disposition home or self-care (01) ==
LOC: LAB 10:49
PROVIDERS: PCP Physician Assistant; Visit Provider Internal Medicine Interventional Cardiology
DX: I10 Essential (primary) hypertension (principal)
CPT/HCPCS: 36415; 80048; 85025

== ENCOUNTER 2024-02-13 11:11 | Outpatient (OUT) | payer BC, SELFPAY ==
--- OUTSIDE RECORDS SUMMARY | 2024-02-13 11:21 | XMS_ITS | CCD ---
Author Organization [facility] Care Team Providers Care Geodetic Engineer Name Role Phone PHYSICIAN, DEFAULT Admitting Unavailable [...] Care Physician CAMILA Petersen Primary Care Provider [phone] DO Barber Snow Jr Attending Provider [phone] Barber Snow Jr Attending Unavailable Barber Snow [...] Referring Unavailable Maria D PETERSEN Admitting Unavailable ARTURO TEJADA Referring Unavailable ARTURO TEJADA Attending Unavailable MARIA D PETERSEN Primary Care Unavailabl e ARTURO TEJADA Attending Unavailable NICOLA, MARIA D ED [facility] BEATRIZ FIGUEROA Attending Unavailable BEATRIZ FIGUEROA Referring Unavailable KARIME V, SHEREE Referring Unavailable [facility] Unavailabl e KARIME V, SHEREE Referring Unavailable [facility] Unavailabl e KARIME V, SHEREE Referring Unavailable KARIME V, SHEREE Admitting Unavailable KARIME V, SHEREE Attending Unavailable [facility] Unavailabl e KARIME V, SHEREE Referring Unavailable KARIME V, SHEREE Admitting Unavailable KARIME V, SHEREE Attending Unavailable [facility] Unavailabl e KARIME V, SHEREE Referring Unavailable [facility] Unavailabl e KARIME V, SHEREE Referring Unavailable [facility] Unavailabl e KARIME V, SHEREE Attending Unavailable [facility] Unavailabl e BARBER SNOW Attending Unavailable BARBER SNOW Referring Unavailable [facility] Unavailabl e NICOLE RYAN Attending Unavaila ble [facility] Unavailabl e KARIME V, SHEREE Attending Unavailable [facility] Unavailabl e ARTURO DODGE Attending Unavailable NICOLA, MARIA D Cueva Attending Unavailable ARTURO DODGE Attending Unavailable JOSE MANUEL NG Attending Unavailable MOUKAANITA, CAMILA Attending Unavailable MOUKACAMILA HOWARD Attending Unavailable Allergies Allergy Classification Reported Allergen(s) Allergy Type Date of Onset Reaction(s) Facility (2 sources) atorvastatin; Translations: [ATORVASTATIN] Drug Allergy 06-14-2022 Unknown [facility] Medications Current Medications Medication Drug Class(es) Dates [...] source) Aminoglycoside Antibacterial, Polymyxin-class Antibacterial, Corticosteroid Start: neomycin/polymyxin b/dexametha(MAXITROL 3.5 MG/G-10,000 UNIT/G-0.1 % EYE [...] NASE) 50 mcg/actuation nasal spray Use 1 [place] in each nostril as needed. 0 Active Comment on above: Use 1 [place] in each nostril as needed. gabapentin 300 mg oral capsule (8 sources) Anti-epileptic Agent Start: 022 End: gabapentin (NEURONTIN) 300 mg capsule Indications: Acute [...] sources) Angiotensin Converting Enzyme Inhibitor Start: 03-01-20 17 lisinopril (ZESTRIL, PRINIVIL) 10 mg tablet Take [...] Comment on above: As Instructed per selwyn colonage 24 hr metoprolol succinate 50 mg extended release oral tablet (18 sources) beta-Adrenergic Franc Start: 03-01-2017 metoprolol succinate ER (TOPROL XL) 50 mg 24 hr tablet q 24 HR. 0 03/01/2017 Active Start: 03-01-2017 take 1 tablet by ivan th once daily Metoprolol succinate 50 mg ER [...] disease (18 sources) Atherosclerotic heart disease of [place] coronary artery without angina pectoris; Translations: [Generalized ischemic myocardial dysfunction] Onset: 9 Chronic Disorders of lipid metabolism (20 sources) Hyperlipidemia; [...] Other eye disorders (1 source) History of bncomoa-hrzhrwpz-usdnvi (YAG) laser capsulotomy of lens; Translations: [Cataract extraction status, left eye] 10-25-2023 Episodic Other liver diseases (16 sources) Elevated liver enzymes level; Translations: [Abnormal levels of other serum enzymes] 11-07-2014 Episodic Other nervous system disorders (1 source) Other chronic pain; Translations: [Chronic right-sided low back pain with right-sided sciatica] Onset: Chronic Other screening for suspected conditions (not mental disorders or infectious disease) (2 sources) Abnormal findings on diagnostic imaging of heart and coronary circulation; Translations: [Encounter for screening for malignant neoplasm of prostate] Onset: 9 Episodic Residual codes; unclassified (17 sources) Obstructive sleep apnea syndrome; Translations: [Obstructive sleep apnea (adult) (pediatric)] 07-12-2021 Chronic Unclassified (1 source) DX Onset: 9 Unclassified (1 source) Patient encounter status 03-13-2023 Past or Other Problems Problem Classification Problem Date Documented Da te Episodic/Chronic Blindness and vision defects (4 sources) Bilateral myopia of eyes; Translations: [Myopia, bilateral] Onset: 03-08-2023 Episodic Coronary atherosclerosis and other heart disease (2 sources) Presence of coronary angioplasty implant and graft; Translations: [Presence of coronary angioplasty implant and graft] Onset: 06-27-2023 Episodic Inflammation; infection of eye (except that [...] right cornea, initial encounter] Onset: 04-12-2023 Episodic Syncope (2 sources) Syncope and collapse; Translations: [Syncope and collapse] Onset: 06-27-2023 Episodic Unclassified (2 sources) Cholesterol 11-16-2010 Results Test Name Value Interpretation Reference Range Facility Abstracton 02-09-2024 Abstract [id number] Jb Thacker 1960 [facility] Provider Department Center 02/09/2024 CAMILA KANG [facility] UGO Velásquez Family History Problem Relation Age of Onset Leukemia Mother Diabetes Father Heart attack Father Family Status - Relation Status Age at Mother Father [facility] Letter (Out)on 02-09-2024 Letter (Out) [id number] Jb Thacker 1960 [facility] Provider Department Center 02/09/2024 None-None [facility] AUTH DE Medical C Family History Problem Relation Age of Onset Leukemia Mother Diabetes Father Heart attack Father Family Status - Relation Status Age at Mother Father [facility] 29on 01-23-2024 29 Addended by: JOSE MANUEL NG on: 01/24/2024 06:57 AM Modules accepted: Orders Normal [facility] Office Visiton 01-23-2024 Follow-up visit [id number] Jb Thacker 1960 [facility] Provider Department Center 01/23/2024 120-JOSE MANUEL NG UGO Wood Family History Problem Relation Age of Onset Leukemia Mother Diabetes Father Heart attack Father Family Status - Relation Status Age at Mother Father Level of Service:93777 PA OFFICE/OUTPATIENT ESTABLISHED MOD MDM 30 MIN [facility] Office Visiton 06-27-2023 Follow-up visit [id number] Jb Thacker 1960 M Date Provider Department Center 06/27/2023 CAMILA KANG Family History Problem Relation Age of Onset Leukemia Mother Diabetes Father Heart attack Father Family Status - Relation Status Age at Mother Father Level of Service:19190 PA OFFICE/OUTPATIENT ESTABLISHED LOW MDM 20-29 MIN [facility] 36on 05-23-2023 36 called back and she was made aware to stop lisinopril. [facility] Office Visiton 05-19-2023 Follow-up visit [id number] Jb Thacker 1960 M Date Provider Department Center 05/19/2023 CAMILA KANG Family History Problem Relation Age of Onset Leukemia Mother Diabetes Father Heart attack Father Family Status - Relation Status Age at Mother Father Level of Service:86391 PA OFFICE/OUTPATIENT ESTABLISHED MOD MDM 30-39 MIN [facility] Lab Reportson 03-15-2023 Lab Reports [id number]: 127 [facility] Lab Reportson 03-14-2023 Lab Reports [id number]#1.00CD: 127 [facility] Lab Reports [id number] [id number]#1.00CD: 127 [facility] Physician Referralon 023 Physician Referral [id number] [id number]: 127 [facility] RAD - MRI Reporton RAD - MRI Report [id number]: 127 [facility] Ambulatory Visit Summaryon 0 03-13-2023 Ambulatory Visit Summary DARIUS THACKER :1960 Visit Date:03/13/2023 Ambulatory Visit Instructions Your Diagnosis Renal cyst Prostate cancer screening Tests Performed Urnls Dip Stick Auto w/o Microscopy POC 16881 US Renal -- Results Pending -- Please visit your patient portal for your results or contact your primary care physician. Your Care Team Attending Physician - ORA MILLER, Francois George Primary Care Physician - NICOLA JENSEN, Maria D Cueva Referring Physician - Rosaura Moseley MD This [...] Following Appointments Follow Up with ORA MILLER, RAQUEL Vann When: In 1 year Comments: Renal US Where: [facility] [address], [facility] [place] [address]- [phone] Medications What How Much When Instructions Unchanged [...] Urnls Dip Stick Auto w/o Microscopy POC 83313 (03/13/2023) Bilirubin Urine Dipstick - Negative Blood Urine Dipstick - Negative Glucose Urine Dipstick - Negative Ketones Urine Dipstick - Negative Leukocytes Urine Dipstick - Negative Nitrite Urine Dipstick - Negative Protein Urine Dipstick - Negative Specific [place] Urine Dipstick - 1.015 Urine Appearance Urine [...] be do (more content not included)... Normal [facility] Patient Educationon 03-13-20 23 Patient Education Urology [...] gives to you. In general: ? Take dmlg-jtm-ytvbdxt and prescription medicines only as told by [...] provider. Document Revised: 12/28/2020 Document Reviewed: 12/28/2020 [employer] Patient Education ? 2022 [employer]. [facility] Reminderson 03-13-2023 Reminders - From: Sunshine Treviño To: MIGUEL - Recallethan Payan; Sent: 03/13/2023 16:04:39 EDT Show up: 01/15/2024 16:04:00 EDT Subject: Renal US Due Date/Time: 02/05/2024 16:04:00 EDT Reminder/Recall Order placed at [facility] to have renal US done prior to 02/2024 appt. Please call to sched patient. Normal [facility] Orders Onlyon 03-10-2023 Orders Only [id number] Jb Thacker 1960 M Date Provider Department Center 03/10/2023 [id number] [facility] CARDIO [facility] Family History Problem Relation Age of Onset Leukemia Mother Diabetes Father Heart attack Father Family Status - Relation Status Age at Mother Father Normal [facility] ANES POSTPROC EVALon 023 ANES POSTPROC EVAL HNO ID: [id number] Author: Johnathan Melton II, DO Service: Anesthesiology Author Type: Anesthesiologist Type: Anesthesia Postprocedure Evaluation Filed: 03/08/2023 1:09 PM Note Text: POST ANESTHESIA EVALUATION NOTE : 1960 Procedure Summary Date: 03/08/23 Room / Location: [place] [address] / [facility] Anesthesia Start: 1200 Anesthesia Stop: 1221 Procedures: [...] March 08, 2023 TIME: 1:09 PM CSN: [id number] Normal [facility] ANES PRE-OPon 03-08-2023 ANES PRE-OP HNO ID: [id number] Author: Johnathan Melton II, DO Service: Anesthesiology Author Type: Anesthesiologist Type: Anesthesia Preprocedure Evaluation Filed: 03/08/2023 11:31 AM Note Text: ANESTHESIOLOGY DAY OF SURGERY NOTE : 1960 Procedure Information Date/Time: 03/08/23 1200 Procedures: PHACOEMULSIFICATION CATARACT IMPLANT INTRAOCULAR LENS W/O ENDOSCOPIC CYCLOPHOTOCOAGULATION (Right: Eye) OPHTHALMIC BIOMETRY BY PARTIAL COHERENCE INTERFEROMETRY W/INTRAOCULAR LENS POWER CALCULATION (Right: Eye) Location: [address] Surgeons: Sheree Schaffer V, MD Estimated [...] 48 hours of Surgery/Procedure. SIGNATURE: Johnathan Melton II DO PATIENT NAME: Darius Thacker DATE: March 08, 2023 TIME: 11:29 AM CSN: [id number] Normal [facility] OPERATIVE NOon 03-08-2023 OPERATIVE NO HNO ID: [id number] Author: Sheree Schaffer V, MD Service: Ophthalmology Author Type: Physician Type: Operative Report Filed: 03/08/2023 12:18 PM Note Text: OPERATIVE REPORT DATE OF SERVICE: March 08, 2023 PRIMARY SURGEON: Sheree Schaffer M.D. PAINTER ROUGH: None Procedure(s) (LRB): PHACOEMULSIFICATION CATARACT IMPLANT INTRAOCULAR [...] corneal incision was created temporally with a [place] blade then a 2.4 mm keratome. The [...] Implant Name Type Inv. Item Serial No. Grades 1 Through 6 Teacher Lot No. LRB No. Used Action Model No. CLARE[place] ASPHERIC UV ABSORBING IOL +20.5D Intraocular Lens [id number] [employer] Right 1 Implanted [id number] was inserted through [...] 12:16 PM - Comanage with Dr Breen; [facility] P[facility]1 Sheree SCHAFFER MD [facility] HISTORY PHYSICALon 3 HISTORY PHYSICAL HNO ID: [id number] Author: Christi Hernandez APRN.CNP Service: ? Author Type: Nurse Practitioner Type: [...] fevers. Neuro: No history of TIA's, stroke, TILE CLASSIFIER tumor, impaired sensorium, hemiplegia, paraplegia or quadraplegia. No neurological symptoms or problems. Respiratory: No history of current cough or dyspnea, or pneumonia in the past 6 weeks. No history of respiratory/pulmonary symptoms or problems. +JOSE Cardiovascular: Negative for Recent UT, Angina, Chest Pain, DVT/PE + CHF + [...] of bleeding (more content not included)... Normal [facility] ANES POSTPROC EVALon 023 ANES POSTPROC EVAL HNO ID: [id number] Author: Vipul García DO Service: Anesthesiology Author Type: Anesthesiologist Type: Anesthesia Postprocedure Evaluation Filed: 01/11/2023 3:55 PM Note Text: POST ANESTHESIA EVALUATION NOTE : 1960 Procedure Summary Date: 01/11/23 Room / Location: [address] Anesthesia Start: 1325 Anesthesia Stop: 1349 [...] January 11, 2023 TIME: 3:55 PM CSN: [id number] Normal [facility] ANES PRE-OPon 01-11-2023 ANES PRE-OP HNO ID: [id number] Author: Vipul García DO Service: Anesthesiology Author Type: Anesthesiologist Type: Anesthesia Preprocedure Evaluation Filed: 01/11/2023 1:11 PM Note Text: ANESTHESIOLOGY DAY OF SURGERY NOTE : 1960 Procedure Information Date/Time: 01/11/23 1155 Procedures: PHACOEMULSIFICATION CATARACT IMPLANT INTRAOCULAR LENS W/O ENDOSCOPIC CYCLOPHOTOCOAGULATION (Left: Eye) OPHTHALMIC BIOMETRY BY PARTIAL COHERENCE INTERFEROMETRY W/INTRAOCULAR LENS POWER CALCULATION (Left: Eye) Location: [place] [address] / [facility] Surgeons: Sheree Schaffer V, MD Estimated body [...] (FLONASE) 50 mcg/actuation nasal spray Use 1 [place] in each nostril as needed. I have interviewed and examined the patient. I have reviewed the medical record and/or the pre-anesthesia evaluation, pertinent labs, and test results. This contains updated information obtained within 48 hours of Surgery/Procedure. SIGNATURE: Vipul García DO PATIENT NAME: Darius Thacker DATE: January 11, 2023 TIME: 1:08 PM CSN: [id number] [facility] OPERATIVE NOon 01-11-2023 OPERATIVE NO HNO ID: [id number] Author: Sheree Schaffer V, MD Service: Ophthalmology Author Type: Physician Type: Operative Report Filed: 01/11/2023 1:46 PM Note Text: OPERATIVE REPORT DATE: January 11, 2023 PRIMARY SURGEON: Sheree Schaffer MD PAINTER ROUGH: None OPERATION: Phacoemulsification of cataract, insertion of [...] corneal incision was created temporally with a [place] blade then a 2.4 mm keratome. The [...] 1:43 PM - Comanage with Dr Breen; [facility] P[facility]1 Sheree SCHAFFER MD [facility] HISTORY PHYSICALon 3 HISTORY PHYSICAL HNO ID: [id number] Author: Sheeba Webster APRN.MOBILE HOMES REPAIRER Service: ? Author Type: Nurse Practitioner Type: [...] (FLONASE) 50 mcg/actuation nasal spray Use 1 [place] in each nostril as needed. Yes No medication comments found. CURRENT ALLERGIES: ALLERGIES No Known Allergies COVID VACCINATION STATUS: Fully vaccinated REVIEW OF SYSTEMS: PAIN ASSESSMENT: General: No weight loss, malaise or fevers. Neuro: No history of TIA's, stroke, TILE CLASSIFIER tumor, impaired sensorium, hemiplegia, paraplegia or quadraplegia. No neurological symptoms or problems. Positive HYDABURG bilateral hearing aids Respiratory: Positive for Tobacco Use quit in 2001 JOSE compliant with CPAP , Negative for No history of current cough or dyspnea, or pneumonia in the past 6 weeks. Cardiovascular: Positive for: HLD, Hypertension History of CAD s/p PTCA in 2015 Heart Failure on Lasix EF 40% Denies [...] acute distr (more content not included)... Normal [facility] 12-16-2022 [facility] Telephone (OPHTLN) -------- DARIUS THACKER ([id number]) 1960 M Date Time Provider Department 12/16/22 SHEREE SCHAFFER V OPHLEI During your visit today, we recorded the following information about you: Kateryna Mclaughlin [facility] 12/16/2022 11:34 AM Signed Called and spoke to patient and scheduled pre op appointments for 12/29. I advised him that we will contact Dr Breen' office and set up the post op appointments (1 day and 1 week). Asked if it was okay that we send him a [employer] message with those appointments. He confirmed mychart was okay. Add on 01/11 per - call to schedule Received: Yesterday Marina Brain [facility] [facility] Opht Surg It Instructor CHART MADE AND FILED IN [facility] PATIENT SCHEDULED FOR SX OS ONLY 01/11/23 - ADD PER MYC OK: --NO CALL TO SCHEDULE PH #: VERIFIED SR/CASE MSG DONE: YES NOTES: POST OPS W/: DR STEFF Schaffer V, MD P Ln Opht Surg It Instructor Left eye only Comanage with Dr Breen [...] and surgery - Comanage with Dr Breen; [facility] P[facility] Allergies As of Date: 12/16/2022 [...] (FLONASE) 50 mcg/actuation nasal spray Use 1 [place] in each nostril as needed. - desvenlafaxine [...] Status:Closed by KATERYNA JAMESON on 12/16/22 Normal [facility] CBC AUTO DIFFon 11-08-2022 BASO # 0.0 103/ul Normal 0.0-0.1 [facility] Comment on above: Performed By: #### C BC #### [facility] [address] [address] [address] Lenard Maloney Basophils/100 WBC (Bld) 0.7 % Normal 0.2-2.0 [facility] Comment on above: Performed By: #### C BC #### [facility] [address] [place] [address] Dr. Lenard Maloney EO # 0.2 103/ul Normal 0.0-0.7 [facility] Comment on above: Performed By: #### C BC #### [facility] [address] [place] [address] Dr. Lenard Maloney Eosinophils/100 WBC (Bld) 2.8 % Normal 0.9-7.0 [facility] Comment on above: Performed By: #### C BC #### [facility] [address] [place] [address] Dr. Lenard Maloney Erythrocyte distribution width (RBC) [Ratio] 11.6 % Normal 11.0-15.0 [facility] Comment on above: Performed By: #### C BC #### [facility] [address] [place] [address] Dr. Lenard Maloney Hematocrit (Bld) [Volume fraction] 41.1 % Critically low 42.0-54.0 [facility] Comment on above: Performed By: #### C BC #### [facility] [address] [place] [address] Dr. Lenard Maloney Hemoglobin (Bld) [Mass/Vol] 14.3 g/dL Normal 14.0-18.0 [facility] Comment on above: Performed By: #### C BC #### [facility] [address] [place] [address] Dr. Lenard Maloney IG # 0.01 10e3/ul Normal 0.00-0.03 [facility] Comment on above: Performed By: #### C BC #### [facility] [address] [place] [address] Dr. Lenard Maloney IG % 0.2 % Normal 0.0-0.5 [facility] Comment on above: Performed By: #### C BC #### [facility] [address] [place] [address] Dr. Lenard Maloney LYMPH # 2.1 103/ul Normal 1.2-3.8 [facility] Comment on above: Performed By: #### C BC #### [facility] [address] [address] [address] Lenard Maloney Lymphocytes/100 WBC (Bld) 34.5 % Normal 20.5-60.0 [facility] Comment on above: Performed By: #### C BC #### [facility] [address] [address] [address] Lenard Maloney MANUAL DIFF REQ NO Normal [facility] Comment on above: Performed By: #### C BC #### [facility] [address] [place] [address] Dr. Lenard Maloney MCH (RBC) [Entitic mass] 33.3 pg Normal 25.9-34.0 [facility] Comment on above: Performed By: #### C BC #### [facility] [address] [place] [address] Dr. Lenard Maloney MCHC (RBC) [Mass/Vol] 34.8 g/dL Normal 29.9-35.2 [facility] Comment on above: Performed By: #### C BC #### [facility] [address] [place] [address] Dr. Lenard Maloney MCV (RBC) [Entitic vol] 95.8 fL Critically high 80.0-94.0 [facility] Comment on above: Performed By: #### C BC #### [facility] [address] [place] [address] Dr. Lenard Maloney MONO # 0.6 103/ul Normal 0.3-0.8 [facility] Comment on above: Performed By: #### C BC #### [facility] [address] [place] [address] Dr. Lenard Maloney Monocytes/100 WBC (Bld) 10.0 % Normal 1.7-12.0 [facility] Comment on above: Performed By: #### C BC #### [facility] [address] [place] [address] Dr. Lenard Maloney NEUT # 3.2 103/ul Normal 1.4-6.5 [facility] Comment on above: Performed By: #### C BC #### [facility] [address] [address] [address] Lenard Maloney Neutrophils/100 WBC (Bld) 51.8 % Normal 43.0-75.0 [facility] Comment on above: Performed By: #### C BC #### [facility] [address] [place] [address] Dr. Lenard Maloney Platelet mean volume (Bld) [Entitic vol] 8.0 fL Critically low 9.5-13.5 [facility] Comment on above: Performed By: #### C BC #### [facility] [address] [place] [address] Dr. Lenard Maloney PLT 224 103/ul Normal 150-450 [facility] Comment on above: Performed By: #### C BC #### [facility] [address] [place] [address] Dr. Lenard Maloney RBC 4.29 106/ul Critically low 4.70-6.10 [facility] Comment on above: Performed By: #### C BC #### [facility] [address] [place] [address] Dr. Lenard Maloney WBC 6.1 103/ul Normal 4.0-11.0 [facility] Comment on above: Performed By: #### C BC #### [facility] [address] [place] [address] Dr. Lenard Maloney LIPID PROFILEon 11-08-2022 CHOL-HDL RATIO NORM SEE BELOW Normal [facility] Comment on above: Result Comment: 3.3 - 4.4 LOW RISK 4.4 - 7.1 AVERAGE RISK 7.1 - 11.0 MODERATE RISK >11.0 HIGH RISK Performed By: #### L IPID, CMP #### [facility] [address] [place] [address] Dr. Lenard Maloney Cholesterol [Mass/Vol] 195 mg/dL Normal <=200 [facility] Comment on above: Performed By: #### L IPID, CMP #### [facility] [address] [place] [address] Dr. Lenard Maloney Cholesterol in HDL [Mass/Vol] 102 mg/dL Critically high 40-60 [facility] Comment on above: Performed By: #### L IPID, CMP #### [facility] [address] [address] [address] Lenard Maloney Cholesterol in LDL [Mass/Vol] 70.0 mg/dL Normal [facility] Comment on above: Performed By: #### L IPID, CMP #### [facility] [address] [address] [address] Lenard Maloney Cholesterol.total/ Cholesterol in HDL [Mass ratio] 1.9 {ratio} Normal [facility] Comment on above: Performed By: #### L IPID, CMP #### [facility] [address] [address] [address] Lenard Maloney HDL NORMAL > or = 60 mg/dl - LO W CARDIOVASCULAR RISK <40 mg/dl - HIGH CARDIOVASCULAR RISK Normal [facility] Comment on above: Performed By: #### L IPID, CMP #### [facility] [address] [address] [address] Lenard Maloney LDL CALC NORMAL SEE BELOW Normal [facility] Comment on above: Result Comment: <100 mg/dl OPTIMAL 100 - 129 mg/dl NEAR OR ABOVE OPTIMAL 130 - 159 mg/dl BORDERLINE HIGH 160 - 189 mg/dl HIGH >190 mg/dl VERY HIGH Performed By: #### L IPID, CMP #### [facility] [address] [place] [address] Dr. Lenard Maloney Triglyceride [Mass/Vol] 115 mg/dL Normal <=150 [facility] Comment on above: Performed By: #### L IPID, CMP #### [facility] [address] [address] [address] Lenard Maloney VLDL CALC 23.0 mg/dL Normal [facility] Comment on above: Performed By: #### L IPID, CMP #### [facility] [address] [address] [address] Lenard Maloney PROF 14(COMP METB)on 023 Albumin [Mass/Vol] 4.5 g/dL Normal 3.4-5.0 [facility] Comment on above: Performed By: #### L IPID, CMP #### [facility] [address] [address] [address] Lenard Maloney Albumin/Globulin [Mass ratio] 1.4 {ratio} Normal [facility] Comment on above: Performed By: #### L IPID, CMP #### [facility] [address] [address] [address] Lenard Maloney ALP [Catalytic activity/Vol] 49 U/L Normal 46-116 [facility] Comment on above: Performed By: #### L IPID, CMP #### [facility] [address] [address] [address] Lenard Maloney ALT [Catalytic activity/Vol] 26 U/L Normal 16-63 [facility] Comment on above: Performed By: #### L IPID, CMP #### [facility] [address] [address] [address] Lenard Maloney Anion gap [Moles/Vol] 14.2 mmol/L Normal [facility] Comment on above: Performed By: #### L IPID, CMP #### [facility] [address] [address] [address] Lenard Maloney AST [Catalytic activity/Vol] 23 U/L Normal 15-37 [facility] Comment on above: Performed By: #### L IPID, CMP #### [facility] [address] [address] [address] Lenard Maloney Bilirubin [Mass/Vol] 0.6 mg/dL Normal 0.2-1.0 [facility] Comment on above: Performed By: #### L IPID, CMP #### [facility] [address] [address] [address] Lenard Maloney Calcium [Mass/Vol] 9.2 mg/dL Normal 8.5-10.1 [facility] Comment on above: Performed By: #### L IPID, CMP #### [facility] [address] [address] [address] Lenard Maloney Chloride [Moles/Vol] 97 mmol/L Critically low 98-107 [facility] Comment on above: Performed By: #### L IPID, CMP #### [facility] [address] [address] [address] Lenard Maloney CO2 [Moles/Vol] 28.7 mmol/L Normal 21.0-32.0 [facility] Comment on above: Performed By: #### L IPID, CMP #### [facility] [address] [address] [address] Lenard Maloney Creatinine [Mass/Vol] 0.84 mg/dL Normal 0.70-1.30 [facility] Comment on above: Performed By: #### L IPID, CMP #### [facility] [address] [address] [address] Lenard Maloney EGFR-AF BANGLADESHI >60 Normal >=60 [facility] Comment on above: Performed By: #### L IPID, CMP #### [facility] [address] [address] [address] Lenard Maloney EGFR-NON AF BANGLADESHI >60 Normal >=60 [facility] Comment on above: Performed By: #### L IPID, CMP #### [facility] [address] [address] [address] Lenard Maloney Globulin (S) [Mass/Vol] 3.2 g/dL Normal [facility] Comment on above: Performed By: #### L IPID, CMP #### [facility] [address] [address] [address] Lenard Maloney Glucose [Mass/Vol] 109 mg/dL Critically high 74-106 [facility] Comment on above: Performed By: #### L IPID, CMP #### [facility] [address] [address] [address] Lenard Maloney Potassium [Moles/Vol] 3.9 mmol/L Normal 3.5-5.1 [facility] Comment on above: Performed By: #### L IPID, CMP #### [facility] [address] [address] [address] Lenard Maloney Protein [Mass/Vol] 7.7 g/dL Normal 6.4-8.2 [facility] Comment on above: Performed By: #### L IPID, CMP #### [facility] [address] [address] [address] Lenard Maloney Sodium [Moles/Vol] 136 mmol/L Normal 136-145 [facility] Comment on above: Performed By: #### L IPID, CMP #### [facility] [address] [address] [address] Leanrd Maloney Urea nitrogen [Mass/Vol] 17.0 mg/dL Normal 7.0-18.0 [facility] Comment on above: Performed By: #### L IPID, CMP #### [facility] [address] [address] [address] Lenard Maloney Urea nitrogen/Creatinin e [Mass ratio] 20.2 mg/mg Normal [facility] Comment on above: Performed By: #### L IPID, CMP #### [facility] [address] [address] [address] Lenard Maloney Coding Summary.on 10-15-2022 Coding Summary. CD:[id number] Ww+P GhlYWQ+GT7BWIYbJ58umSYnv G6aB2BKRMnOVxhxJAWEEViNU ySscnFjRM0ihZXpXKFo IC8+RT6hOBLxTlztsGKyh9Y9 sII4K28uds0rNCglqQR2WSKb MiFmodrtw0urvGm7PTbdZjhw OyBt HUFwrV71UKX5vC99Px58jKJg wYDaw3denJg0KsPmSWCiNBA3 cLdtPRhbe8BuLKRcU69qlHYc c2U6 YRGzkDmjnNCgDaWunPF9jY5y TOgynjgzz8tuldaiTld6dm08 oLMjx5D4rYO7Q7AhzmY6EXMu bGQg GjvrdWVGcN6miyxsc6bxtupy NcAeOOXzTVn2KWz3QWPriHkm HgUfUS85JEN6MHPhhwIdT1Ug LWFs rVogOmB1e5V7Fb7CP6INVfyq P9COLPTBEPatvFO+AB44pa27 D4TyReokBkj1QPMhCNH4nIP5 aD0n LCHbRCjqw1J8hIC0F7RvmtTe pc0fn9rbVPMjKDcvW99uaHKy d6W9RDSnjIA4HRSfzVmfHkNq aG93 Oyc+PDWwtOpnw8RcDtkix3pj v2pgyVb9VvjgZUIhvmAkwPzx QAO8x5ZhEi2aTGOofGP9mTO1 aD0i YuJyPmC3PDpvK516JlOuwJJy QpajD39vQ4ShjZU+PHRyPjx0 LKWhnKkhCE3pM6MbMOWwlsdj bGVm fBaaKC5qKBZpeeztJRRroI3y PPPkW2n9UtNpBlQ9QOqbJ2Hp IJCxvzacTs91sE3zMeAoYvO2 MGlu O2TzkbQ6WKNkyVAfRWzfWQF6 D56st1D1VIIlVDJjOUT4mKJ1 vI3wqDqzurxssWNsoKmjarHa dGlj JClcTUfaE712AFXdgYaaChRp ZGluZyBEYXRlOiAgMDQvMDEv MjAyMzwvdGQ+GVXtNQX3sLkb PSAn hANoQCnvRp1rbPkauQjfSF6y WXLsearxCNZjjU9xDVNchWVj jTxzSE7wPCOptftvy241DcJp MHB0 KXGdwRDmD1CdtL6nYkStXTVe MANeO0XozBVvOCfjY332LKes ToH7DPQakrAiG2EsITYcnFzt OiB0 k1K6Wp5Cr5OjztbtE4ZwxPHm ImGcFqcuIEk4G2HyScktaYN+ HP10BUTlJR53PMm2RRL3kRuh PSdi RIJrX8RoeS0hOgUkKAQrZSAd Oyc+PHRhYmxlIHdpZHRoPScx HJYdUpTomIsuAD9zNb1cEOUu LWNv mBdstDRkNoFtn3diXMViHPhw PO1sfLycL5MkmFG9RJCww4h4 Pp19A50tT2HtbSA+PGNvbCB3 aWR0 uE9eXkTnDbB1INflV259JpAn mBMeAbram9jut0qiuRb0WhK4 EIErmvBhsDaiKAR6q9RwFf56 Y29s IHdpZHRoPSIxNSUiIHZhbGln ix3xdE8rFd9+MPPuwED0fDC0 fC9aThSvHxB6RGxqC659GiCr cCIv Qglbe2edh3gasNt7AyFmJHOf epGrlTlmXMO9b8DtDw54D8Yc cRypk6HjJey9kx10jCLay3T1 bGU9 X6EsLSImppqoaXIycSiaMG3k QJMqkydpCVRtzG7bEGYlG5q0 UaRbSaE4GAjwI2ZrmpV1TGOv bGQg BZLtcMLOvF1ceqodu9vnrmau QuXtMJOhIHy4NZc5ECXqgUxq LbKcTUK8JcW5QIX5cXVmuS0u bGln okaijK4dZur+JGM4qYWzkSDA EO7tOcccbVS+NONwKJT6xBfa CJvnJUHgzW5zZHCtE6t6DvSh LjA1 WPzoT7RzzeK6HRXopYCjWTHs lMZQsS6fvjugr6ocimgoLkLt USAwXTb0FMf3CXWbiRtgWnBe ZWZ0 YyS7CZV6kUZwqG9bvYyfdffz sP9hBxv+EbaieCxzKSZ8KEg6 P5HmVck0DOJqdKduLE6qnTZq ZGlu Nj0cqJgpaZsjXF5pUXEgncsr c613PsFio4vkQRAoiTGfKShb QTF5G86gh3V5SRRfVTKgSXD8 dGV4 qP8wrFmxglrzlUUoxOhqhfUs pVaiHFdkEAlnR148DBHhgKcr ZaCmJXb2M8IpTqu3EMRzmUes ZT0n mZXhIOqbZz1dcVexwZanFJ3n ZPRrlwbtt301HpDrw1fgSYNv nPFnGXkcHND7M73kt3O1QVZf MDAw SUK7cRE4eA5vtBkfuzbqxUNk jXohhzUovTylZQrhNTqwY950 VTDthMpkVyWrtJu5R9FtUtu1 ZCBz kMvkEY0lpHRrHEhnVw4tsNss cZqrKF2hKGObaixxt926DwHu k7ljGKXmsPUqREbhTQS2U62c b3I6 MZMlISUhNGX5sNZ2aS4woDzz bjogbGVmdDsgdmVydGljYWwt MJusZ777TYVolOifIlGybYja bnQg GViuLKo6O6IkOmxjgAO+PC90 KTLdVD71rFOhkOVxi5nhpYr8 FnImCCVwNFZ7mYgtWLrjs7Fy ZXIt X76fyMDlo4H0IDJaePgohCQk XfMrlCG6rE2eWTmjbqony6sh hanxEzjsl5cecl34cN38C18m IHdp HQDqMSXtSSEuDMNdbSzqur4c jR8sVt7+JBKrgNZ1fBI2lD3v ZJCmRmA6XXwvG702GbJtkJRk Pjxj i2kja5mutVp3AvC3RJGeznUj qVhoNLF7a9MrVv12E64uINot LWWyIVClZGIqVRRomTqslu1q dG9w Ii8+EWCgxTB4dSJ7pI3lUyOp VnL4SGwbT931KdWbaKFwHvmp Z95hL5OsfZL+HJRoOzu5NRQm dHls TS4dwKPmZCroPl5mPFI1PjWz WvMrJRqiX1MoXEIeocwyugmm aAP4CJWbQSMojA37Ex6nvOlb MTBw rNNSxM6ftopdd8whwspfBmBn MXPvWEg6UIg5AVVhlGilTzBx VGZ1MyD9GGL8xELooX0wbQxu bjog bW9gU4QqKNPesudcVs77yT2y OyBwSyJ8QRakVrn+TVlFUlMs IFNURVZFTjwvdGQ+PHRkIHN0 eWxl FPswJHDxvZ8sPNMiE3v7JsNe UuH2WOwgS5TfVKQeckcaOe97 nG3uTrUePdT2DZjpY5GiarJ7 IDEw lVFkFItaZGI6A20sd7T8IAJr HIKzGAV2tXO0qU7hpXezkxdx bGVmdDsgdmVydGljYWwtYWxp Z246 GGDsgYyvSdC8JbW5VlO0LeY3 Q2UsHsx0WLBmdYsnGC8pvDOt ZWvdWy1nkOeobTliYO8mMDJz bjtw VGUnjK1pSNKkqZZkuZnvVK6c GSSichqyx137OdAjGHN5KCWl oSYaZ3LenD3vBsNtCMJqPTCv O3Rl hXXlFMwiO865ARdaZrG4RPFy kjYiV7RsMNMdzAopGgX4f2W6 Ym55EYRMDYUqxbabwVR+PHRk IHN0 kJeoTWozYURhqN9bEDTwH4f3 BnOjDvE1UBnzC9CfLDZozixh Yt03dD1dDjQgIqC1OLjuH9Ff bnQ6 SUVrfYUrMBlxRTK7F56am4L9 FXWkJKBwYJZ1kUZ3jE7mkIjq bjogbGVmdDsgdmVydGljYWwt YWxp R462XTEiySdxEg5saKD1V0Ev Wox6DHSucOhzCQ2veIScUTfh Xf8ztZgiwBkgGR7xNZQeuonq YWRk wZ2kZJPcmHClvIesWI3fJGAn ydolq537JgDzRSY0OWDfwJFk N2BurU8uTbErMXCkXSTyB3Tl eHQt WRteC951ABklOxM3KUQnwyAt F0GgCFDmcIlrTuE5o9O0Ej4M oDCdRIKlRO55MR45OP34P9Bz Pjwv dGFibGU+PHRhYmxlIHdpZHRo KFgiWCZiYgVgvZomHW7kZr5q BYAtXLQobIpskNWsUfDvw6tp YXBz TEmrHD2ieZumX6GryUK6DJHw u9j5Up87S64oJ3KlxPF+PGNv qGP4sPR7yY1rFeQySnM8ITak Z249 MyZqbZOoFmwdy8ocm3nzwCg6 DyQuSTPlhuPzxWmlXFH7s9Eo Gg42H27nWQuxMFFxMMVdFMKt IHZh mXvzop2niG2xPf2+PGNvbCB3 eJZ6jR4dLpRbJuC1JTxpD901 IrVfzSSsDfznO80bI8NeoAA+ PHRy Rre3ZVNotLxnJY3maOEeDJxz Ee7yBJL3WeMcIsNqJKpaU4Nl RHBlilxlplpcfGO0DXMbIOGz aW47 Ob1zpSkaHw3gXAVuCHH5JUIb qLBkJ8CleQ2nIhJqFXOxPZZf X8IrqVFtMHnoI284TNqpToF9 IHZl zaUdJ1RwXOXnlGekMbG4r1V5 Gm2SmSnqfCVpLP0wYgUjVFm9 M3BqWyl3BCIssUvcXS0hnENq ZGlu Ag6glFhuxJvmRB2aHMYiekhm h474MmCjf3gvISZkqOBhMHgt XDP7F24kc8D4FZNlBEGmXGD8 dGV4 hS1tlTerhfzylKTsuIglgiKu gVvvUZiyBBjlD134SCOumLhr TtMISzl4O0AoLqk4NRAqoPkt ZT0n cPDiCPfgDv1elMxasMchVC4m CDYjpfpmy327QjZvs4xgVRDp sFWyZRsrBFU6H74ua4W7QLXs MDAw UUY2jTU5mA0eeRosmyfkxTAj jLuexeWscSutGLkrPVetE407 JWYpwPmvUw3MLbk1K5XnLuc9 ZCBz oTipIC2riWGxVBfrOg3poQzr fGgkHL5mTGXeirhye536QsOw a4oxSXQwgHHfPHipZNE5F23d b3I6 RIKbSGGlVKM5eVA0aC9pzYjd bjogbGVmdDsgdmVydGljYWwt LPemH634BFAzmWqaAoQitPFs Ojwv dGQ+QR98zu93L8HcOumyMks0 ABXfYKR2dMF4nR2hDASrEImb v6H7iSA6I6InypGvwp4te7bj YXBz NTwnT94l (more content not included)... [facility] US Renalon 10-13-2022 US Renal [...] Odonnell M.D. Transcribed by: JESSICA Technologist: NGA [facility] Consent for Treatmenton 09-15 Consent for Treatment [id number]: 127 [facility] Physician Orderon 10-06-2022 Physician Order [id number]:1 27 [facility] No Panel Informationon 08-10 [facility] No Panel Information [facility] Vital Signs Date Time Vital Sign Value Performing Clinician Faci lity 12-29-2022 13:30-0400 Body height 177.8 cm Pacc 2 Work Phone: [facility] 12-29-2022 13:30-0400 Body temperature 97.2 [degF] Pacc 2 Work Phone: [facility] 12-29-2022 13:30-0400 Body weight 80.74 kg Pacc 2 Work Phone: [facility] 12-29-2022 13:30-0400 Diastolic blood pressure 75 mm[Hg] Pacc 2 Work Phone: [facility] 12-29-2022 13:30-0400 Heart rate 57 /min Pacc 2 Work Phone: [facility] 12-29-2022 13:30-0400 Respiratory rate 16 /min Pacc 2 Work Phone: [facility] 12-29-2022 13:30-0400 SaO2% (BldA) [Mass fraction] 100 % Pacc 2 Work Phone: [facility] 12-29-2022 13:30-0400 Systolic blood pressure 115 mm[Hg] Pacc 2 Work Phone: [facility] 05-18-2022 14:190400 Body weight 74.66 kg Barber Snow DO Work Phone: [facility] 05-18-2022 14:19-0400 Diastolic blood pressure 70 mm[Hg] Barber Snow DO Work Phone: [facility] 05-18-2022 14:0400 Heart rate 73 /min Barber Snow DO Work Phone: [facility] 05-18-2022 14:19-0400 Systolic blood pressure 107 mm[Hg] Barber Snow DO Work Phone: [facility] Encounters Encounter Date Encounter Type Care Provider Facility Start: 03-08-2024 ambulatory Francois Little ty:MIGUEL Rodriguez Start: 01-23-2024 End: 01-23-2024 ambulatory JOSE MANUEL BERENICE [facility] Start: 11-16-2023 End: 11-16-2023 ambulatory MARIA D PETERSEN Not Available Start: 10-25-2023 End: 10-25-2023 ambulatory NICOLE RYAN Facility:[facility] Start: 10-25-2023 End: 10-25-2023 Patient encounter procedure Nicole Ryan OD Work Phone: Ophthalmology Comment on above: Keratoconjunctivitis sicca of both eyes not specified as Sjogren's (Primary Dx); 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 of both eyes; Pinguecula of left eye; Pterygium, right; Pseudophakia of both eyes; History of YAG laser capsulotomy of lens, left Start: 09-18-2023 ambulatory Barber donald DO Work Phone: Spine Medicine Comment on above: Back Pain Start: 09-12-2023 End: 09-12-2023 ambulatory ARTURO DODGE Not Available Start: 06-27-2023 End: 06-27-2023 ambulatory [facility] Start: 06-20-2023 End: 06-20-2023 ambulatory ARTURO DODGE Not Available Start: 06-01-2023 End: 06-01-2023 ambulatory SHEREE SCHAFFER V Facility:[facility] Start: 06-01-2023 End: 06-01-2023 Patient encounter procedure Sheree Schaffer MD Work Phone: Ophthalmology Comment on above: Left posterior capsu lar opacification (Primary Dx); Pseudophakia of both eyes Start: 05-19-2023 End: 05-19-2023 ambulatory [facility] Start: 04-20-2023 End: 04-20-2023 ambulatory ARTURO TEJADA Facility:[facility] Start: 04-12-2023 End: 04-12-2023 ambulatory ARTURO TEJADA Facility:[facility] Start: 03-13-2023 End: 03-14-2023 ambulatory Rosaura Moseley Facility:[facility] Start: 03-13-2023 End: 03-13-2023 Patient encounter procedure Francois PAYAN [facility] Start: 03-08-2023 End: 03-08-2023 ambulatory MARIA D PETERSEN Facility:[facility] Start: 03-08-2023 End: 03-08-2023 Patient encounter procedure Beatriz Figueroa OD Work Phone: Ophthalmology Comment on above: S/P cataract extract ion and insertion of intraocular lens, left (Primary Dx) Start: 03-01-2023 End: 03-01-2023 ambulatory SHEREE SCHAFFER V Facility:[facility] Start: 01-13-2023 Refill Sheree Schaffer MD Work Phone: Ophthalmology Comment on above: Refill Request Start: 01-11-2023 End: 01-11-2023 ambulatory SHEREE SCHAFFER V Facility:[facility] Start: 12-29-2022 End: 12-29-2022 Patient encounter procedure Eye Measurements Work Phone: Ophthalmology Comment on above: Combined forms of ag e-related cataract of both eyes Start: 12-29-2022 End: 12-29-2022 Admission to [facility] 2 Work Phone: [facility] Start: 12-29-2022 End: 12-29-2022 ambulatory [facility] Work Phone: Pre Anesthesia Comment on above: Pre-op evaluation (P rimary Dx); JOSE (obstructive sleep apnea); Uncomplicated asthma, unspecified asthma severity, unspecified whether persistent; Hyperlipidemia, unspecified hyperlipidemia type; Heart failure, unspecified HF chronicity, unspecified heart failure type (HCC); Essential (primary) hypertension; Generalized ischemic myocardial dysfunction Start: 12-29-2022 End: 12-29-2022 Preprocedural examination done [facility] Work Phone: Pre Anesthesia Start: 12-21-2022 End: 12-21-2022 ambulatory SHEREE SCHAFFER V Facility:[facility] Start: 12-16-2022 Telephone encounter Sheree george MD Work Phone: Ophthalmology Comment on above: Schedule Surgery Start: 12-15-2022 End: 12-15-2022 ambulatory SHEREE SCHAFFER V Facility:[facility] Start: 12-15-2022 End: 12-15-2022 Patient encounter procedure Sheree Schaffer MD Work Phone: Ophthalmology Comment on above: Combined forms of ag e-related cataract of both eyes (Primary Dx); Myopia with astigmatism and presbyopia, bilateral Start: 11-15-2022 ambulatory Francois PAYAN Facility : [facility] Start: 11-08-2022 End: 11-09-2022 ambulatory MARIA D PETERSEN Facility: Start: 10-31-2022 End: 10-31-2022 ambulatory Barber Penn Arabella DO Work Phone: Spine Medicine Comment on above: Chronic right-sided low back pain with right-sided sciatica (Primary Dx); Radiculopathy of lumbar region Start: 10-31-2022 End: 10-31-2022 Telemedicine consultation with patient Barber Snow Work Phone: [facility] Start: 10-11-2022 End: 10-12-2022 ambulatory Maria D PETERSEN Facility:[facility] Start: 10-11-2022 End: 10-11-2022 Patient encounter procedure Maria D PETERSEN [facility] Start: 10-11-2022 Telephone encounter Barber Snow DO Work Phone: [facility] [place] Comment on above: post injection follo w up Start: 09-27-2022 Telephone encounter Barber Penn Pageodilon DO Work Phone: [facility] [place] Comment on above: Preparations For Pro cedures (Pre-injection call) Start: 09-16-2022 End: 09-16-2022 ambulatory CAMILA Petersen Work Phone: [facility] Work Phone: Start: 09-16-2022 End: 09-16-2022 Discharged Recurring CAMILA Petersen Work Phone: [facility] Start: 08-10-2022 End: 08-10-2022 Subsequent hospital visit by physician [facility] 2 (Istat/1.5) Work Phone: [facility] Comment on above: Chronic right-sided low back pain with right-sided sciatica [M54.41, G89.29] Start: 07-25-2022 End: 07-25-2022 ambulatory Barber Snow DO Work Phone: Spine Medicine Comment on above: Chronic right-sided low back pain with right-sided sciatica (Primary Dx); Lumbosacral radiculitis; Radiculopathy of lumbar region Start: 07-25-2022 End: 07-25-2022 Telemedicine consultation with patient Barber Snow DO Work Phone: [facility] Start: 07-21-2022 Telephone encounter Barber Snow DO Work Phone: Spine Medicine Comment on above: Orders Start: 05-18-2022 End: 05-18-2022 Patient encounter procedure Barber Snow DO Work Phone: Spine Medicine Comment on above: Acute right-sided lo w back pain with right-sided sciatica (Primary Dx); Lumbosacral radiculitis Start: 12-16-2021 ambulatory NORA OLIVA Facility : Start: 10-22-2018 End: 10-23-2018 Patient encounter procedure DEFAULT PHYSICIAN Facility:[facility] Start: 10-02-2018 End: 10-03-2018 Patient encounter procedure PROVIDER UNKNOWN Facility:[facility] Start: 09-20-2018 End: 09-21-2018 Patient encounter procedure DEFAULT PHYSICIAN Facility:[facility] Start: 09-12-2018 End: 09-13-2018 Patient encounter procedure DEFAULT PHYSICIAN Facility:[facility] Procedures Date Procedure Procedure Detail Performing Clinician [...] - S jake or Plasma Lipid Screening [facility] Start: 11-09-2027 Lipid panel Lipid Screening [facility] Start: 11-09-2027 LIPID SCREEN LIPID SCREEN [facility] Start: 08-01-2026 Urine microalbumin profile [facility] Start: 10-18-2025 DIABETES SCREEN DIABETES SCREEN [facility] Start: 10-18-2025 Diabetes Screening Diabetes Screenin g [facility] Start: 03-17-2024 Influenza vaccination Influenz a Vaccine (Season Ended) [facility] Start: 03-01-2024 BP CONTROLLED (<130/80) BP CONTROLLE D (<130/80) [facility] Start: 12-30-2023 BP CONTROLLED (<130/80) BP CONTROLLE D (<130/80) [facility] Start: 12-15-2023 End: 06-07-2024 IOL BIOMETRY W/ IOL CALC OU (BOTH EYES) IOL BIOMETRY W/ IOL CALC OU (BOTH EYES) OPHT Imaging Routine Combined forms of age-related cataract of both eyes Expected: 12/15/2023, Expires: 06/07/2024 [facility] Work Phone: Comment on above: Expected: 12/15/2023 , Expires: 06/07/2024 Start: 07-17-2023 Behavioral Health Screening Behavioral Health Screening [facility] Start: 07-17-2023 Depression Assessment Depression Ass essment [facility] Start: 03-17-2023 Covid-19 Vaccine ( season) Covid-19 Vaccine ( season) [facility] Start: 03-17-2023 Influenza vaccination C [facility] Start: 08-16-2022 SHINGRIX VACCINE (2 of 2) SHINGRIX VACCINE (2 of 2) [facility] Start: 07-17-2022 DEPRESSION ASSESSMENT DEPRESSION ASS ESSMENT [facility] Start: 03-17-2022 Influenza vaccination INFLUENZA (#1) [facility] Start: 07-17-2021 DEPRESSION ASSESSMENT DEPRESSION ASS ESSMENT [facility] Start: 07-06-2021 COVID-19 VACCINE (4 - Booster for Moderna series) COVID-19 VACCINE (4 - Booster for Moderna series) [facility] Start: 2021 RSV Vaccine (1 - 1-d ose 60+ series) RSV Vaccine (1 - 1-dose 60+ series) [facility] [place] Start: 2016 PROSTATE CANCER SCREENING DISCUSSION PROSTATE CANCER SCREENING DISCUSSION [facility] [place] Start: 2016 Prostate specific antigen measurement Prostate Cancer Screening Discussion [facility] [place] Start: 2011 SHINGRIX VACCINE (1 of 2) SHINGRIX VACCINE (1 of 2) [facility] [place] Start: 2006 COLOGUARD (FIT-DNA) COLOGUARD (FIT-D NA) [facility] [place] Start: 2006 Colonoscopy COLONOSCOPY [facility] [place] Start: 2006 COLORECTAL CANCER SCREENING COLORECTAL CANCER SCREENING [facility] [place] Start: [address] COLONOGRAPHY [facility] Start: 2006 DIABETES SCREEN DIABETES SCREEN [facility] Start: 2006 FECAL OCCULT BLOOD FECAL OCCULT BLOO D [facility] [place] Start: 2006 Screening for malign ant neoplasm of colon [facility] [place] Start: 2006 SIGMOIDOSCOPY SIGMOIDOSCOPY [facility] Start: 1996 LIPID SCREEN LIPID SCREEN [facility] [place] Start: 1980 Urine microalbumin profile DTAP,TDAP,TD (1 - Tdap) [facility] [place] Start: 1979 ANNUAL PCP TEAM REGISTRAR MUSEUM GIO DISEASE VISIT ANNUAL PCP TEAM CHRONIC DISEASE VISIT [facility] [place] Start: 1979 HEPATITIS C SCREENING HEPATITIS C [facility] Start: 1979 Hepatitis C screening Hepatitis C [facility] Start: 1979 HIV SCREENING HIV SCREENING [facility] Start: 1979 HIV screening HIV Screening [facility] Start: 1979 SPIROMETRY SPIROMETRY [facility] [place] Start: 1967 PNEUMOCOCCAL (1 - PCV) PNEUMOCOCCAL (1 - PCV) [facility] [place] End: 05-31-2024 CORNEAL TOPOGRAPHY PENTACAM OU (BOTH EYES) CORNEAL TOPOGRAPHY PENTACAM OU (BOTH EYES) OPHT Imaging Routine Combined forms of age-related cataract of both eyes 1 Occurrences starting 12/08/2022 until 05/31/2024 [facility] Work Phone: Comment on above: 1 Occurrences starti ng 12/08/2022 until 05/31/2024 End: 05-31-2024 OCT MACULA CIRRUS OU (BOTH EYES) OCT MACULA CIRRUS OU (BOTH EYES) OPHT Imaging Routine Combined forms of age-related cataract of both eyes 1 Occurrences starting 12/08/2022 until 05/31/2024 [facility] Work Phone: Comment on above: 1 Occurrences starti ng 12/08/2022 until 05/31/2024 [facility] Immunizations Immunization Date Immunization Notes Care Provider Catrachito garza 06-21-2022 pneumococcal (PCV20) vaccine, 20 valent (PREVNAR 20) Pacc 2 Work Phone: [facility] [place] 06-21-2022 zoster vaccine recombinant Pacc 2 Work Phone: [facility] [place] 05-31-2022 influenza virus vaccine, unspecified formulation Francois PAYAN [facility] 05-31-2022 influenza, injectabl e, quadrivalent, preservative free Pacc 2 Work Phone: [facility] [place] 05-31-2022 SARS-CoV-2 (COVID-19 ) [id number] Francois PAYAN [facility] 05-11-2021 SARS-CoV-2 (COVID-19 ) mRNA-1273 vaccine Francois PAYAN [facility] Comment on above: Result Comment: 2022: [id number] 11-12-2020 SARS-CoV-2 (COVID-19 ) mRNA-1273 vaccine Francois PAYAN [facility] 10-19-2020 SARS-CoV-2 (COVID-19 ) mRNA-1273 vaccine Francois PAYAN [facility] 05-24-2018 influenza virus vaccine, unspecified formulation Francois PAYAN [facility] 05-24-2018 influenza, injectabl e, quadrivalent, preservative free Pacc 2 Work Phone: [facility] 08-01-2016 tetanus toxoid, redu yonis diphtheria toxoid, and acellular pertussis vaccine, adsorbed Pacc 2 Work Phone: [facility] 07-21-2016 influenza virus vaccine, unspecified formulation Francois PAYAN [facility] 07-21-2016 influenza, injectabl e, quadrivalent, contains preservative Pacc 2 Work Phone: [facility] Payers Date Payer Category Payer Unknown [id number] 2022 Self-pay [id number] 2021 Unknown 2006 Private Health Insurance [id number] 1961 Unknown [id number] 1961 Unknown [id number] [id number] 1961 Unknown [id number] [id number] 1961 Unknown [id number] 2.16.840.1.601100.3.579.2.647 1961 Unknown [id number] [id number] 1961 Unknown [id number] [id number] 1961 Unknown [id number] 2.16.840.1.308369.3.579.2.727 1961 Unknown [id number] 2.16.840.1.411531.3.579.2.727 1961 Unknown [id number] 2.16.840.1.669125.3.579.2.727 1961 Unknown [id number] 2.16.840.1.870984.3.579.2.727 1961 Unknown [id number] 2.16.840.1.796680.3.579.2.1259 1961 Unknown [id number] 2.16.840.1.332576.3.579.2.1259 1961 Unknown [id number] 2.16.840.1.096335.3.579.2.1259 1959 Self-pay [id number] 1959 Unknown [id number] Unknown [id number] Unknown [facility] Netk Access [id number] Unknown [id number] Social History Date Type Detail Facility Start: 05-18-2022 End: 12-29-2022 Tobacco smoking status NHIS Ex-smoker [facility] End: 07-17-2001 History of tobacco use Current smoker [facility] End: 07-17-2001 History of tobacco use Cigarette Smoker [facility] Start: 05-18-2022 End: 12-15-2022 Cigarettes smoked current (pack per day) - Reported 1 [facility] Start: 05-18-2022 End: 12-29-2022 Tobacco use and exposure Smokeless tobacco non-user [facility] Start: 05-18-2022 End: 12-15-2022 Alcohol intake Current drinker of alcohol (finding) [facility] Start: 1960 Sex Assigned At Not on file [facility] Start: 05-08-2022 End: 05-18-2022 Exposure to SARS-CoV-2 (event) Not sure [facility] Tobacco Past, Cigarettes [facility] Tobacco smoking status No Smokin g Status Entered [facility] Start: 12-15-2022 End: 03-08-2023 Sex Assigned At Male [facility] Start: 1960 Sex Assigned At Male F [facility] Start: 12-29-2022 End: 10-25-2023 Alcohol intake Ex-drinker (finding) [facility] Start: 12-29-2022 Alcohol Comment 5 drinks per w [facility] [place], sometimes more [facility] Adult Depression Screening Assessment 0 [facility] Medical Equipment Procedure Code Equipment Code Equipment Origin al Text Equipment Identifier Dates [employer] Iol +21d [id number] Start: 01-11-2023 Comment on above: Description: -1.41 [employer] Iol +20.5d [id number] Start: 03-08-2023 Comment on above: Description: -0.20 Functional Status Date Assessment Result Facility 03-13-2023 Functional Status N/A [facility] Clinical Notes 05-18-2022 to 01-23-2024 Addendum Note - Nicole Ryan OD - 10/25/2023 3:14 PM EDTPatient Nicole Byrnes OD - 10/25/2023 2:57 PM EDNicole Felder OD - 06/01/2023 2:00 PM EST Note Date & Type Note Facility 01-23-2024 Note Continue GDMT- ASA, toprol, crestor D/W Dr Sen regarding possible cardiac cath [facility] 01-23-2024 Note Hypertension is unch anged, boarderline labile with noted orthostatic changes Continue current medications. [facility] 01-23-2024 Note Worsening symptoms o f Unstable angina with known CAD s/p PCI Chest pain, STEWART, and near syncope despite adjustments of medications at recent appointments Will D/W Dr Sen- interventionalist, but provider d/w pt regarding cardiac cath to assess for any significant coronary stenosis, D/W pt risks of cardiac catheterization including but not limited to: Bleeding/bruising, infection, blood clot or damage to a blood vessel, abnormal heart rhythm, chest pain, heart attack, sudden blockage or tear/damage to a coronary artery, kidney damage from contrast, allergic reaction to medications/ or contrast, stroke, . And he voiced understanding and agreement [facility] 01-23-2024 Note [facility] CARDIOLOGY PROGR ESS NOTE HPI: Darius Thacker is a 63 y.o. male here for routine F/U Patient here for 6 mo follow up CAD, chronic systolic heart failure, and syncope. Had labs last week. C/o dizziness when he stands up from putting a golf ball on a radha. C/o sharp, tingly right-sided chest pain. 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 Says he can tell a difference in STEWART now that he doesn't walk anymore. CAD, LAD UT treated by stenting (02/2015) and systolic heart failure. His echocardiogram on 04/14/2015 and 01/05/2016 showed improvement in EF to 40%. His echocardiogram in 2019 showed an LVEF of 35%. A MUGA scan in 2019 showed an LVEF of 43%. Chest Pain This is a recurrent problem. The current episode started 1 to 4 weeks ago. The onset quality is sudden. The problem occurs intermittently. The problem has been unchanged. The pain is present in the substernal region (rt sided, sternal). The pain is at a severity of 3/10. The pain is moderate. The quality of the pain is described as sharp. The pain does not radiate. Associated symptoms include shortness of breath. The pain is aggravated by nothing. He has tried rest for the symptoms. The treatment provided no relief. Risk factors include smoking/tobacco exposure, male gender, obesity and lack of exercise. His past medical history is significant for CAD. Shortness of Breath This is a recurrent problem. The current episode started more than 1 month ago. The problem occurs intermittently. The problem has been unchanged. The average episode lasts 5 minutes. Associated symptoms include chest pain. The symptoms are aggravated by exercise. He has tried rest for the symptoms. The treatment provided mild relief. His past medical history is significant for CAD. Review of Systems Cardiovascular: Positive for chest pain (right-sided) and dyspnea on exertion (worsening). Musculoskeletal: Positive for neck pain. Neurological: Positive for headaches. All other systems reviewed and are negative. Previous HPI per Dr Sen Subjective Darius Thacker is a 63 y.o. [...] near-syncope/syncope. Denies chest pain and LE edema. HPI Mr Thacker is seen in follow up on CAD, LAD UT treated by stenting (02/2015) and systolic heart [...] II. No leg swelling. No chest pain. Visit Vitals BP 127/88 (BP Location: Left arm, Patient Position: Standing) Pulse 86 Ht 1.778 m (5' 10 ) Wt 88 kg (194 lb) SpO2 98% BMI 27.84 kg/m??? Smoking Status Never BSA 2.08 m??? Allergies Allergen Reactions Atorvastatin Medications: Current Outpatient Medications on File Prior to Visit Medication Sig Dispense Refill aspirin 81 mg chewable tablet Chew 1 tablet (81 mg) in the morning. 90 tablet 3 desvenlafaxine (Pristiq) 50 mg 24 hr tablet Take 1 tablet by mouth in the morning. Farxiga 10 mg TAKE 1 TABLET(10 MG) BY MOUTH IN THE MORNING 90 tablet 3 gemfibrozil (Lopid) 600 mg tablet Take 1 tablet (600 mg) by mouth in the morning and at bedtime. 180 tablet 3 lisinopril 10 mg tablet Take 10 mg by mouth in the morning. omeprazole (PriLOSEC) [address] capsule Take 2 capsules (40 mg) by mouth once daily as directed. 180 capsule 3 rosuvastatin (Crestor) 40 mg tablet Take 1 tablet (40 mg) by mouth at bedtime. 90 tablet 3 spironolactone (Aldactone) 25 mg tablet TAKE 1/2 TABLET(12.5 MG) BY MOUTH IN THE MORNING 45 tablet 3 [DISCONTINUED] metoprolol succinate XL (Toprol-XL) 25 mg 24 hr tablet Take 1 tablet (25 mg) by mouth once daily as directed. Do not crush or chew. 90 tablet 3 No current facility-administered medications on file prior to visit. Physical Exam: Constitutional: Appearance: Normal appearance. Without apparent distress HENT: Head: Normocephalic and atraumatic. Nose: Nose normal. Mouth/Thr (more content not included)... [facility] 01-23-2024 Note Patient here for 6 m o follow up CAD, chronic systolic heart failure, and syncope. Had labs last week. C/o dizziness when he stands up from putting a golf ball on a radha. C/o sharp, tingly right-sided chest pain. He used to walk several miles a day but doesn't anymore because he is working again. Says he can tell a difference in STEWART now that he doesn't walk anymore. Review of Systems Cardiovascular: Positive for chest pain (right-sided) and dyspnea on exertion (worsening). Musculoskeletal: Positive for neck pain. Neurological: Positive for headaches. All other systems reviewed and are negative. [facility] 01-23-2024 Note [facility] II-III currentl y euvolemic without exacerbation- he admits to not drinking enough fluid on a daily basis Continue GDMT- ASA, crestor, farxiga, aldactone and toprol Diuretic therapy- dc'd r/t hypotension/syncope Monitor daily weights, I&O, fluid restriction 1.5-2L/day, renal function and electrolytes- [facility] 10-25-2023 Note HNO ID: [id number] Author: NICOLE RYAN OD Service: ? Author Type: DIRECTOR ADVERTISING Type: Progress Notes Filed: 10/25/2023 15:09 Note Text: ASSESSMENT/PLAN: 1. Keratoconjunctivitis sicca of both eyes not specified as Sjogren's - ICD9: 370.33, ICD10: H16.223 (primary diagnosis) 2. 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 Start Warm/Hot compresses once a day [...] Dr Breen October 25, 2023 2:57 PM [facility] 10-25-2023 Miscellaneous Notes Addended by: NICOLE RYAN on: 10/25/2023 03:14 PM Modules accepted: Orders documented in this encounter [facility] 10-25-2023 Instructions Nicole Ryan, OD - 10/25/2023 3:09 PM EDT Warm/Hot compresses once a day x 10-15 min (Ned Mask or TheraPearls Mask) Lid scrubs daily (OcuSoft, SteriLids , or baby Shampoo) Maxitrol ointment to lash line at bedtime x 1 tube Artificial Tears for comfort 3-4 times RECOMMENDED ARTIFICIAL TEARS Preserved Artificial Tears (in bottles): Theratears Extra Systane Ultra or Systane Complete Refresh NCI-3 or Refresh Digital Systane Balance Refresh Optive [...] blur vision more. documented in this encounter [facility] 10-25-2023 History of Present illness Narrative ASSESSMENT/PLAN: 1. Keratoconjunctivitis sicca of both eyes not specified as Sjogren's - ICD9: 370.33, ICD10: H16.223 (primary diagnosis) 2. 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 Hi, Please schedule the following appointment. Patient: Darius Thacker Provider:Dr. Barber Snow Date: 10/02/2023 Time: 430 PM [facility] schedule Visit Type: Virtual (visualized on screen) Established Visit follow up Imaging needed prior to schedule: No Patient is aware: Yes Thank you! Alesha Marcos, RN Forwarded to [facility] scheduling. Made a temporary hold on 10/01 at 430 PM for VV. It is on the [facility] schedule. documented in this encounter [facility] 06-27-2023 Note [place] [facility] - [facility] Subjective Darius Thacker is a 63 [...] seen in follow up on CAD, LAD UT treated by stenting (02/2015) and systolic heart [...] at bedtime., Di (more content not included)... [facility] 06-01-2023 Note HNO ID: [id number] Author: Nicole Ryan OD Service: ? Author Type: DIRECTOR ADVERTISING Type: Progress Notes Filed: 06/01/2023 2:27 PM Note Text: ASSESSMENT/PLAN: 1. Left posterior capsular opacification - ICD9: 366.50, ICD10: H26.492 (primary diagnosis) 2. Pseudophakia of both eyes - ICD9: V43.1, ICD10: Z96.1 Dr Sheree Schaffer YAG evaluation OS today I have confirmed and edited as necessary the relevant ophthalmic history, ROS, and the exam findings as obtained by others. I have seen and examined this patient. I also have reviewed and agree with the assessment and plan as stated above and agree with all of its relevant components. Nicole Ryan, OD June 01, 2023 2:00 PM [facility] 06-01-2023 History of Present illness Narrative ASSESSMENT/PLAN: 1. Left posterior capsular opacification - ICD9: 366.50, ICD10: H26.492 (primary diagnosis) 2. Pseudophakia of both eyes - ICD9: V43.1, ICD10: Z96.1 Dr Sheree Schaffer YAG evaluation OS today I have confirmed and edited as necessary the relevant ophthalmic history, ROS, and the exam findings as obtained by others. I have seen and examined this patient. I also have reviewed and agree with the assessment and plan as stated above and agree with all of its relevant components. Nicole Ryan, OD June 01, 2023 2:00 PM documented in this encounter [facility] 05-19-2023 Note [place] [facility]iology - [facility] Subjective Darius Thacker is a 63 [...] seen in follow up on CAD, LAD UT treated by stenting (02/2015) and systolic heart [...] at bedtime., Disp: (more content not included)... [facility] 04-20-2023 Note HNO ID: [id number] Author: Arturo Tejada OD Service: ? Author Type: DIRECTOR ADVERTISING Type: Progress Notes Filed: 04/20/2023 12:24 PM [...] Tejada, OD April 20, 2023 12:23 PM [facility] 04-12-2023 Note HNO ID: [id number] Author: Arturo Tejada, OD Service: ? Author Type: DIRECTOR ADVERTISING Type: Progress Notes Filed: 04/12/2023 12:25 PM Note Text: (H16.101) Superficial keratitis of right eye (primary encounter diagnosis) Comment: diffuse central SPK cause of symptoms and reduced vision Dr Breen said IOP elevated and cornea irritated from overuse of Pred Acetate but was cleared and released by Dr Breen after last visit Has been using artificial tears BOND TRADER Refresh q4-6 times per and Refresh PM qhs Plan: I advised DC all post op medications and stop refresh and refresh PM Change to BOND TRADER systane qid + and celluvisc qhs Follow [...] Tejada, OD April 12, 2023 12:24 PM [facility] 03-13-2023 Note Chief Complaint Referral *Renal Cyst [...] When Contact Information ORA MILLER, Francois George, URL In 1 year [facility] [address], [place] [address] [phone] Additional Instructions: Renal US Patient Education Renal [...] negative Immunizations Vaccine (more content not included)... [facility] Comment on above: Result Comment: [...] provider gives to you. In general: Take cgaw-dia-pptzxml and prescription medicines only as told by [...] provider. Document Revised: 12/28/2020 Document Reviewed: 12/28/2020 [employer] Patient Education 2022 [employer]. Follow Up Care 11/15/2022 12:05:11 With:ORA MILLER, Francois George, URL Address: [facility] [address], [place] [address] [phone] When:Within 1 Year(s) Comments:Renal US [facility] [place] 03-08-2023 Note HNO ID: [id number] Author: Beatriz Figueroa OD Service: ? Author Type: DIRECTOR ADVERTISING Type: Progress Notes Filed: 03/08/2023 11:08 AM [...] Figueroa OD March 08, 2023 11:08 AM [facility] 03-08-2023 History of Present illness Narrative ASSESSMENT/PLAN: [...] all of its relevant components. Beatriz Figueroa, MAYI March 08, 2023 11:08 AM documented in this encounter [facility] 01-13-2023 Miscellaneous Notes Patient states he is [...] review and advise. documented in this encounter [facility] 12-29-2022 Note HNO ID: [id number] Author: SARTHAK Aguilar Service: ? Author Type: Technician Inventory Specialist Type: Progress Notes Filed: 12/29/2022 2:09 PM Note Text: CONFIRM AIM INTERMEDIATE DISTANCE LEFT EYE. AIM -1.50 LEFT EYE. SARTHAK Aguilar [facility] 12-29-2022 History of Present illness Narrative CONFIRM AIM INTERMEDIATE DISTANCE LEFT EYE. AIM -1.50 LEFT EYE. SARTHAK Aguilar documented in this encounter [facility] 12-29-2022 Instructions Sheeba Webster APRN.MOBILE HOMES REPAIRER - 12/29/2022 1:50 PM EDT PATIENT PREOPERATIVE INSTRUCTIONS Sheree Schaffer V, MD has scheduled you for your procedure at this surgery center: [facility]: [phone] --[address] [place] [address]. Please read below carefully for your personalized [...] Procedures: - YOU MUST HAVE A RESPONSIBLE ASSEMBLY MECHANIC TAKE YOU HOME. A TRAFFIC OPERATIONS MANAGER OR FUR CUTTING MACHINE OPERATOR CANNOT BE MADE A RESPONSIBLE ASSEMBLY MECHANIC. - We recommend that a responsible person [...] Advance Directive, please fax a copy to [phone] or email to for it to be [...] Sheeba Webster APRN.MAXIMILIAN documented in this encounter [facility] 12-29-2022 History and physical note HISTORY AND [...] (FLONASE) 50 mcg/actuation nasal spray Use 1 [place] in each nostril as needed. Yes No medication comments found. CURRENT ALLERGIES: ALLERGIES No Known Allergies COVID VACCINATION STATUS: Fully vaccinated REVIEW OF SYSTEMS: PAIN ASSESSMENT: General: No weight loss, malaise or fevers. Neuro: No history of TIA's, stroke, TILE CLASSIFIER tumor, impaired sensorium, hemiplegia, paraplegia or quadraplegia. No neurological symptoms or problems. Positive HYDABURG bilateral hearing aids Respiratory: Positive for Tobacco Use quit in 2001 JOSE compliant with CPAP , Negative for No history of current cough or dyspnea, or pneumonia in the past 6 weeks. Cardiovascular: Positive for: HLD, Hypertension History of CAD s/p PTCA in 2015 Heart Failure on Lasix EF 40% Denies [...] 20 mg every other day Follows cardiology, Kosta Catalan, MINE SUPERINTENDENT-MAXIMILIAN , last OV 11/22/2022. Compliant on medications. Appears euvolemic, denies new or worsening cardiac symptoms. Ejection Fraction: No results found Essential (primary) hypertension Assessment: Stable on medication BP today 115/75 To take medication morning of surgery Hyperlipidemia Assessment: stable on medication Generalized ischemic myocardial dysfunction Assessment: history of UT s/p PTCA in 2014 on ASA follows with Cardiology stable JOSE [...] TIME: 1:36 PM documented in this encounter [facility] 12-16-2022 Miscellaneous Notes Images from the original note were not included. Called and spoke to patient and scheduled pre op appointments for 12/29. I advised him that we will contact Dr Breen' office and set up the post op appointments (1 day and 1 week). Asked if it was okay that we send him a Easy Tempo message with those appointments. He confirmed mychart was okay. Add on 01/11 per - call to schedule Received: Yesterday Marina Canales P Ln Opht Surg It Instructor CHART MADE AND FILED IN MUIR PATIENT SCHEDULED FOR SX OS ONLY 01/11/23 - ADD PER MYC OK: --NO CALL TO SCHEDULE PH #: VERIFIED SR/CASE MSG DONE: YES NOTES: POST OPS W/: DR STEFF Schaffer V, MD P Ln Opht Surg It Instructor Left eye only Comanage with Dr Breen [...] and surgery - Comanage with Dr Breen; [facility] P[facility] documented in this encounter [facility] 12-15-2022 Note HNO ID: [id number] Author: Sheree Schaffer V, MD Service: ? [...] and surgery - Comanage with Dr Breen; [facility] P[facility] Cataract Presurgical Documentation Cataract: Both [...] patient was offered a surgery/procedure at a [facility] facility. The surgeon/proceduralist and patient have discussed [...] SCHAFFER MD December 15, 2022 12:36 PM [facility] 12-15-2022 Note HNO ID: [id number] Author: Beatriz Figueroa, MAYI Service: ? Author Type: DIRECTOR ADVERTISING Type: Progress Notes Filed: 12/15/2022 1:15 PM [...] Figueroa, OD December 15, 2022 12:29 PM [facility] 12-15-2022 Miscellaneous Notes Addended by: MARINA SALGADO on: 12/15/2022 02:17 PM Modules accepted: Orders documented in this encounter [facility] 12-15-2022 History of Present illness Narrative The [...] and surgery - Comanage with Dr Breen; [facility] P[facility] Cataract Presurgical Documentation Cataract: Both [...] patient was offered a surgery/procedure at a [facility] facility. The surgeon/proceduralist and patient have discussed [...] 2022 12:29 PM documented in this encounter [facility] 10-31-2022 Note HNO ID: [id number] Author: Barber Snow, DO Service: ? Author Type: Physician Type: Progress Notes Filed: 11/05/2022 11:18 PM Note Text: [facility]rological [facility] - Medical Spine Established Patient [facility] VISIT This Team Access Model visit [...] Current Treatment: Medications None currently Therapies PT: [facility], frances Niño PT 05/30 - 09/16/22, 20 visits, including mechanical [...] 81 mg OS (more content not included)... [facility] 10-31-2022 History of Present illness Narrative Images from the original note were not included. 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 (Patient not [...] MRI lumbar spine with and without contrast, [facility]: Comparison is made to the March [...] his lateral recess. 09/24/2016 XR lumbosacral spine, [facility]: There is straightening of the normal [...] TIME: 4:13 PM documented in this encounter [facility] 10-11-2022 Miscellaneous Notes Tried to reach patient for post-injection phone call. Left office number for patient to call back. NextPage message/questionairre sent regarding post-injection. documented in this encounter [facility] 09-27-2022 Miscellaneous Notes Phoned patient and spoke with Jb to confirm appointment for Darius Thacker for spine procedure on 10/04/2022. Patient notified that [facility] will call patient the night before with the time to arrive for injection. Patient verbalized understanding of the following: -Provided education on spine procedure and answered questions related to spine injection procedure. -Patient notified effective 01/04/2021 asymptomatic adult patients, regardless of vaccination status, will no longer require COVID-19 testing before undergoing outpatient procedure -News Videotape Editor is needed to drive patient home. -NPO [...] Antibiotics?: No Diabetic: No Patient given number [phone], spine injections schedulers, if there is any [...] POST INJECTION INSTRUCTIONS documented in this encounter [facility] 08-10-2022 Miscellaneous Notes Radiology Service Progress Note [...] 2022 3:17 PM documented in this encounter [facility] 07-25-2022 History of Present illness Narrative Images from the original note were not included. 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 (Patient not [...] MRI lumbar spine with and without contrast, [facility]: Comparison is made to the March [...] his lateral recess. 09/24/2016 XR lumbosacral spine, [facility]: There is straightening of the normal [...] TIME: 4:26 PM documented in this encounter [facility] 07-22-2022 Miscellaneous Notes Spoke to Em [facility] she states needs Verbal permission from patient to be able to speak to and can discuss claim with her. Has told her this. It is an [place] issue. Called spouse advised her that she needs to have patient call Em and give her verbal permission she can then discuss claim with her. She verbalized understanding. Left message on voicemail for Em [facility]acon [facility] to call office back. Pt called, states they received a call from their insurance ([employer]) and the diagnosis code that we gave [...] he is seeing, their contact is Em [facility] - ph. [phone] Please contact patient to advise of any details/further questions. Varinder Monet Pss documented in this encounter [facility] 05-18-2022 History of Present illness Narrative Images from the original note were not included. 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 desvenlafaxine ER [...] MRI lumbar spine with and without contrast, [facility]: Comparison is made to the March [...] his lateral recess. 09/24/2016 XR lumbosacral spine, [facility]: There is straightening of the normal [...] for local options, will likely go to [facility]. -Activities and exercise as tolerated. 3) Pharmacological [...] TIME: 2:11 PM documented in this encounter [facility] Evaluation + Plan note No data available for this section [facility] Evaluation + Plan note Future Appointments Appointment Date:03/08/2024 09:45:00 AM Scheduled Provider:Francois PAYAN MD Location:[facility] Appointment Type:URO Office Visit Future Scheduled TestsUS Renal 03/13/23 [facility] Evaluation note Diagnosis Acute right-sided low back pain with right-sided sciatica- Primary Lumbosacral radiculitis Thoracic or lumbosacral neuritis or radiculitis, unspecified [facility] Diagnosis Chronic right-sided low back pain with right-sided sciatica- Primary Lumbosacral radiculitis Thoracic or lumbosacral neuritis or radiculitis, unspecified Radiculopathy of lumbar region Thoracic or lumbosacral neuritis or radiculitis, unspecified [facility]No [facility] Work Phone: Evaluation note* Diagnosis Chronic right-sided low back pain with right-sided sciatica- Primary Radiculopathy of lumbar region Thoracic or lumbosacral neuritis or radiculitis, unspecified [facility] [place] [facility] Diagnosis Combined forms of age-related cataract of both eyes- Primary Other and combined forms of senile cataract Myopia with astigmatism and presbyopia, bilateral Combined forms of age-related cataract of both eyes Other and combined forms of senile cataract [facility]* Diagnosis Pre-op evaluation- Primary Preoperative examination, [...] senile cataract [facility] [place] [facility] Diagnosis Combined forms of age-related cataract of both eyes Other and combined forms of senile cataract Combined forms of age-related cataract of both eyes Other and combined forms of senile cataract [facility] [place] [facility]* Diagnosis S/P cataract extraction and insertion of intraocular lens, left- Primary documented in this encounter [facility] note* Diagnosis Chronic right-sided low back pain with right-sided sciatica Radiculopathy of lumbar region Thoracic or lumbosacral neuritis or radiculitis, unspecified Bilateral posterior capsular opacification- Primary After-cataract, unspecified [facility] [place] [facility] Diagnosis Left posterior capsular opacification- Primary After-cataract, unspecified Pseudophakia of both eyes Lens replaced by other means [facility] [place] [facility]* Diagnosis Keratoconjunctivitis sicca of both eyes not specified as Sjogren's- Primary Keratoconjunctivitis sicca, not specified as Sjogren's 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 of both eyes Pinguecula of left eye Pinguecula Pterygium, right Pseudophakia of both eyes Lens replaced by other means History of YAG laser capsulotomy of lens, left documented in this encounter [facility] Discharge instructions No data available for this section [facility] No data available for this section [facility] Summary Purpose Family History No Family History Records FoundNo Family History Records FoundNo Family History Records FoundNo Family History Records FoundNo Family History Records FoundNo Family History Records FoundNo Family History Records Found Advance Directives No Advanced Directives Records Found Advance Directive Response Recorded Date/ Time Advance Directives No November 30 9 9:30am Reason for Referral Specialty Diagnoses / Procedures Referred By Alise lugo Referred To Contact [facility] Diagnoses Acute right-sided low back pain with right-sided sciatica Lumbosacral radiculitis Procedures CONSULT TO PHYSICAL THERAPY PHYSICAL THERAPY EVALUATION HIGH COMPLEX 45 MINS Barber Snow DO [address] [place] [address] [facility] [place] [address] [place] [address] Referral ID Status Reason Start Date Expiration Date Visits Requested Visits Authorized [id number] Pending Review Auto-Generat ed Referral 05/18/2022 05/18/2023 1 1 Specialty Diagnoses / Procedures Referred By Contac t Referred To Contact [facility] Diagnoses Chronic right-sided low back pain with right-sided sciatica Radiculopathy of lumbar region Procedures MRI LUMBAR SPINE WO IVCON MRI SPINAL CANAL LUMBAR W/O CONTRAST MATERIAL Barber Snow, DO [address] [place] [address] [facility] Referral ID Status Reason Start Date Expiration Date V isits Requested Visits Authorized [id number] Closed Auto-Generate d Referral 07/25/2022 08/24/2022 1 1 Specialty Diagnoses / Procedures Referred By Contac t Referred To Contact [facility] Diagnoses Chronic right-sided low back pain with right-sided sciatica Radiculopathy of lumbar region Procedures MRI LUMBAR SPINE WO IVCON MRI SPINAL CANAL LUMBAR W/O CONTRAST MATERIAL Barber Snow, DO [address] [place] [address] [id number] Chief Complaint and Reason for Visit Chief Complaint Brant only; back Additional Source Comments (unrecognized sect ion and content) No Status Records FoundNo Status Records FoundNo Status Records FoundNo Status Records FoundNo Status Records FoundNo Status Records FoundNo Status Records Found INFORMATION SOURCE (unrecogn ized section and content) DATE CREATED AUTHOR 10/23/2018 [facility] DATE CREATED AUTHOR AUTHOR'S ORGANIZ ATION 10/19/2022 [facility] DATE CREATED AUTHOR AUTHOR'S ORGANIZ ATION 11/12/[address] [facility] DATE CREATED AUTHOR AUTHOR'S ORGANIZ ATION 03/16/2023 [facility] DATE CREATED AUTHOR AUTHOR'S ORGANIZ ATION 10/26/2023 [facility] DATE CREATED AUTHOR AUTHOR'S ORGANIZ ATION 11/17/2023 [facility] DATE CREATED AUTHOR AUTHOR'S ORGANIZ ATION 02/12/2024 [facility] Source Comments (unrecognize d section and content) In the event this informatio n is protected by the Federal Confidentiality of Alcohol and Drug Abuse Patient Records regulations: The Federal rules restrict any use of the information to criminally investigate or prosecute any alcohol or drug abuse patient.[facility] the event this information is protected by the Federal Confidentiality of Alcohol and Drug Abuse Patient Records regulations: The Federal rules restrict any use of the information to criminally investigate or prosecute any alcohol or drug abuse patient.[facility] the event this information is protected by the Federal Confidentiality of Alcohol and Drug Abuse Patient Records regulations: The Federal rules restrict any use of the information to criminally investigate or prosecute any alcohol or drug abuse patient.[facility] the event this information is protected by the Federal Confidentiality of Alcohol and Drug Abuse Patient Records regulations: The Federal rules restrict any use of the information to criminally investigate or prosecute any alcohol or drug abuse patient.[facility] the event this information is protected by the Federal Confidentiality of Alcohol and Drug Abuse Patient Records regulations: The Federal rules restrict any use of the information to criminally investigate or prosecute any alcohol or drug abuse patient.[facility] the event this information is protected by the Federal Confidentiality of Alcohol and Drug Abuse Patient Records regulations: The Federal rules restrict any use of the information to criminally investigate or prosecute any alcohol or drug abuse patient.[facility] the event this information is protected by the Federal Confidentiality of Alcohol and Drug Abuse Patient Records regulations: The Federal rules restrict any use of the information to criminally investigate or prosecute any alcohol or drug abuse patient.[facility] the event this information is protected by the Federal Confidentiality of Alcohol and Drug Abuse Patient Records regulations: The Federal rules restrict any use of the information to criminally investigate or prosecute any alcohol or drug abuse patient.[facility] the event this information is protected by the Federal Confidentiality of Alcohol and Drug Abuse Patient Records regulations: The Federal rules restrict any use of the information to criminally investigate or prosecute any alcohol or drug abuse patient.[facility] the event this information is protected by the Federal Confidentiality of Alcohol and Drug Abuse Patient Records regulations: The Federal rules restrict any use of the information to criminally investigate or prosecute any alcohol or drug abuse patient.[facility] the event this information is protected by the Federal Confidentiality of Alcohol and Drug Abuse Patient Records regulations: The Federal rules restrict any use of the information to criminally investigate or prosecute any alcohol or drug abuse patient.[facility] the event this information is protected by the Federal Confidentiality of Alcohol and Drug Abuse Patient Records regulations: The Federal rules restrict any use of the information to criminally investigate or prosecute any alcohol or drug abuse patient.[facility] the event this information is protected by the Federal Confidentiality of Alcohol and Drug Abuse Patient Records regulations: The Federal rules restrict any use of the information to criminally investigate or prosecute any alcohol or drug abuse patient.[facility] the event this information is protected by the Federal Confidentiality of Alcohol and Drug Abuse Patient Records regulations: The Federal rules restrict any use of the information to criminally investigate or prosecute any alcohol or drug abuse patient.[facility] the event this information is protected by the Federal Confidentiality of Alcohol and Drug Abuse Patient Records regulations: The Federal rules restrict any use of the information to criminally investigate or prosecute any alcohol or drug abuse patient.[facility] the event this information is protected by the Federal Confidentiality of Alcohol and Drug Abuse Patient Records regulations: The Federal rules restrict any use of the information to criminally investigate or prosecute any alcohol or drug abuse patient.[facility] Reason for Visit (unrecogniz ed section and [...] surgery Specialty Diagnoses / Procedures Referred By Alise lugo Referred To Contact [facility] Diagnoses Combined forms of age-related cataract of both eyes Myopia with astigmatism and presbyopia, bilateral Procedures XCAPSL CTRC RMVL INSJ IO LENS PROSTH W/O ECP OPH BMTRY PRTL COHER INTRFRMTRY IO LENS PWR DELMIS PHACOEMULSIFICATION CATARACT IMPLANT INTRAOCULAR LENS W/O ENDOSCOPIC CYCLOPHOTOCOAGULATION OPHTHALMIC BIOMETRY BY PARTIAL COHERENCE INTERFEROMETRY W/INTRAOCULAR LENS POWER CALCULATION [facility] [address] [place] [address] Referral ID Status Reason Start Date Expiration Date Visits Re quested Visits Authorized [id number] 1 1 Specialty Diagnoses / Procedures Referred By Alise lugo Referred To Contact [facility] Diagnoses Chronic right-sided low back pain with right-sided sciatica Radiculopathy of lumbar region Procedures MRI LUMBAR SPINE WO IVCON MRI SPINAL CANAL LUMBAR W/O CONTRAST MATERIAL Barber nSow DO [address] [place] [address] [id number] Referral ID Status Reason Start Date Expiration Date V isits Requested Visits Authorized [id number] Closed Auto-Generate d Referral 07/25/2022 08/24/2022 1 1 Reason Comments Posterior Capsule Opacification Evaluati on Reason Comments Foreign Body Sensation Care Teams (unrecognized sec tion and content) Geodetic Engineer Relationship Specialty Start Date End Date Nicola Maria D Bernal PCP - General Family Medicine 02/14/14 Geodetic Engineer Relationship Specialty Start Date End Date Nicola Maria D Bernal PCP - General Family Medicine 02/14/14 Geodetic Engineer Relationship Specialty Start Date End Date Maria D Petersen PCP - General Family Medicine 02/14/14 Geodetic Engineer Relationship Specialty Start Date End Date Maria D Petersen PCP - General Family Medicine 02/14/14 Geodetic Engineer Relationship Specialty Start Date End Date Maria D Petersen PCP - General Family Medicine 02/14/14 Team Status: Active Member Role Status Dates Maria D Petersen PA-C Primary Care Provider Active Team Status: Inactive Member Role Status Dates Maria D Petersen PA-C Primary Care Provider Active Barber Snow Jr DO Attending Provider Active Geodetic Engineer Relationship Specialty Start Date End Date Nicola Maria D Bernal PCP - General Family Medicine 02/14/14 Geodetic Engineer Relationship Specialty Start Date End Date Maria D Petesren PCP - General Family Medicine 02/14/14 Geodetic Engineer Relationship Specialty Start Date End Date Maria D Petersen PCP - General Family Medicine 02/14/14 Geodetic Engineer Relationship Specialty Start Date End Date Maria D Petersen PCP - General Family Medicine 02/14/14 Geodetic Engineer Relationship Specialty Start Date End Date Maria D Petersen PCP - General Family [facility] 02/14/14 Geodetic Engineer Relationship Specialty Start Date End Date Maria D Petersen PA-C PCP - [facility] Family [facility] 02/14/14 Geodetic Engineer Relationship Specialty Start Date End Date Maria D Petersen PA-C PCP - [facility] 02/14/14 Geodetic Engineer Relationship Specialty Start Date End Date Maria D Petersen PA-C PCP - [facility] 02/14/14 Geodetic Engineer Relationship Specialty Start Date End Date Maria D Petersen PA-C PCP - [facility] 02/14/14 Goals (unrecognized section and content) Goals [...] BE BASED ON THE PRIMARY CLINICAL RECORDS. [facility] [employer] [facility]. provides no warranty or guarantee of the accuracy or completeness of information in this document.
[2024-02-13 12:29] LABS: Alanine Aminotransferase 36 U/L (16-63); Albumin Globulin Ratio 1.5; Albumin Level 4.6 g/dL (3.4-5.0); Alkaline Phosphatase 48 U/L (46-116); Aspartate Amino Transferase 24 U/L (15-37); Bilirubin Direct 0.2 mg/dL (0.0-0.2); Bilirubin Total 0.5 mg/dL (0.2-1.0); Chol HDL Ratio 2.3; Cholesterol 226 mg/dL (<=200); HDL Cholesterol 100 mg/dL (40-60); Total Protein 7.6 g/dL (6.4-8.2); Triglycerides 115 mg/dL (<=150)
== END 2024-02-13 11:12 | disposition home or self-care (01) ==
LOC: LAB 11:11
PROVIDERS: PCP Physician Assistant; Visit Provider Nurse Practitioner
DX: I25.10 Atherosclerotic heart disease of native coronary artery without angina pectoris (principal); E78.2 Mixed hyperlipidemia
CPT/HCPCS: 36415; 80061; 80076

== ENCOUNTER 2024-02-23 10:06 | Outpatient (OUT) | payer BC, SELFPAY ==
--- OUTSIDE RECORDS SUMMARY | 2024-02-23 10:13 | XMS_ITS | CCD ---
Author Organization [facility] Care Team Providers Care Rolled Materials Worker Name Role Phone PHYSICIAN, DEFAULT Admitting Unavailable [...] Physician CAMILA Petersen Primary Care Provider 1( [phone] DO Barber Snow Jr Attending Provider Barber [...] MARIA D ED [facility] BEATRIZ FIGUEROA Attending Unavailable BEATRIZ FIGUEROA Referring Unavailable KARIME V, SHEREE Referring Unavailable [facility] Unavailabl e KARIME V, SHEREE Referring Unavailable [facility] Unavailabl e KARIME V, SHEREE Referring Unavailable KARIME V, SHEREE Admitting Unavailable KARIME V, SHEREE Attending Unavailable [facility] Unavailabl e KARIME V, SHEREE Referring Unavailable KARIME V, SHEREE Admitting Unavailable KARIME V, SHEREE Attending Unavailable [facility] Unavailabl e KARIME V, SHEREE Referring Unavailable [facility] Unavailabl e KARIME V, SHEREE Referring Unavailable [facility] Unavailabl e KARIME V, SHEREE Attending Unavailable [facility] Unavailabl e BARBER SNOW Attending Unavailable BARBER SNOW Referring Unavailable [facility] Unavailabl e NICOLE RYAN Attending Unavaila ble [facility] Unavailabl e KARIME V, SHEREE Attending Unavailable [facility] Unavailabl e ARTURO DODGE Attending Unavailable NICOLA, MARIA D Cueva Attending Unavailable ARTURO DODGE Attending Unavailable JOSE MANUEL NG Attending Unavailable MOUKAANITA, CAMILA Attending Unavailable MOUKACAMILA HOWARD Attending Unavailable Allergies Allergy Classification Reported Allergen(s) Allergy Type Date of Onset Reaction(s) Facility (2 sources) atorvastatin; Translations: [ATORVASTATIN] Drug Allergy 06-14-2022 Unknown [facility] Medications Current Medications Medication Drug Class(es) Dates [...] NASE) 50 mcg/actuation nasal spray Use 1 [place] in each nostril as needed. 0 Active Comment on above: Use 1 [place] in each nostril as needed. gabapentin 300 [...] disease (18 sources) Atherosclerotic heart disease of tribe coronary artery without angina pectoris; Translations: [Generalized [...] Other eye disorders (1 source) History of pctwbaw-twbeupys-wqigoa (YAG) laser capsulotomy of lens; Translations: [Cataract [...] Test Name Value Interpretation Reference Range Facility 36on 02-20-2024 36 Regarding lab result s from 02/13/2024: AARON Novoa MA So his cholesterol is worse and not controlled with LDL greater than 100 when it should be < 70 and closer to 55. Please ask if he is really taking crestor and febrizol? If so then he needs a med added to regime- Vacepa or leqvio. He has a cath coming up with Camila 02/27- I think. for patient to return my call. Normal [facility] Orders Onlyon 02-20-2024 Orders Only [id number] Jb Thacker 1960 [facility] Provider Department Center 02/20/2024 ALEXA OLMEDO [facility] V[facility] LAB [facility] HeartVAS Family History Problem Relation Age of Onset Leukemia Mother Diabetes Father Heart attack Father Family Status - Relation Status Age at Mother Father Normal [facility] Abstracton 02-09-2024 Abstract [id number] Jb Thacker 1960 [facility] Provider Department Center 02/09/2024 CAMILA KANG [facility] CARD [place] Count Family History Problem Relation Age of Onset Leukemia Mother Diabetes Father Heart attack Father Family Status - Relation Status Age at Mother Father Normal [facility] Letter (Out)on 02-09-2024 Letter (Out) [id number] Jb Thacker 1960 M [facility] Provider Department Center 02/09/2024 None-None [facility] AUTH [place] [facility] C Family History Problem Relation Age of Onset Leukemia Mother Diabetes Father Heart attack Father Family Status - Relation Status Age at Mother Father Normal [facility] 29on 01-23-2024 29 Addended by: JOSE MANUEL NG on: 01/24/2024 06:57 AM Modules accepted: Orders Normal [facility] Office Visiton 01-23-2024 Follow-up visit [id number] Jb Thacker 1960 [facility] Provider Department Center 01/23/2024 120-JOSE MANUEL NG [facility] [place] Family History Problem Relation Age of Onset Leukemia Mother Diabetes Father Heart attack Father Family Status - Relation Status Age at Mother Father Level of Service:51935 ND OFFICE/OUTPATIENT ESTABLISHED MOD MDM 30 MIN [facility] Office Visiton 06-27-2023 Follow-up visit [id number] Jb Thacker 1960 [facility] Provider Department Center 06/27/2023 CAMILA KANG [place] Family History Problem Relation Age of Onset Leukemia Mother Diabetes Father Heart attack Father Family Status - Relation Status Age at Mother Father Level of Service:34718 ND OFFICE/OUTPATIENT ESTABLISHED LOW MDM 20-29 MIN [facility] 36on 05-23-2023 36 called back and she was made aware to stop lisinopril. Normal [facility] Office Visiton 05-19-2023 Follow-up visit [id number] Jb Thacker 1960 [facility] Provider Department Center 05/19/2023 ACMILA KANG [place] Family History Problem Relation Age of Onset Leukemia Mother Diabetes Father Heart attack Father Family Status - Relation Status Age at Mother Father Level of Service:95186 ND OFFICE/OUTPATIENT ESTABLISHED MOD MDM 30-39 MIN [facility] Lab Reportson 03-15-2023 Lab Reports [id number] [id number]#1.00CD: 127 [facility] Lab Reportson 03-14-2023 Lab Reports [id number] [id number]#1.00CD: 127 Normal [facility] Lab Reports [id number] 2291 [id number]#1.00CD: 127 Normal [facility] Physician Referralon 023 Physician Referral [id number] [id number]#[id number]: 127 Normal [facility] RAD - MRI Reporton 3 RAD - MRI Report [id number] 2291 [id number]#1.00CD: 127 Normal [facility] Ambulatory Visit Summaryon 0 03-13-2023 Ambulatory Visit Summary DARIUS THACKER :1960 Visit Date:03/13/2023 Ambulatory Visit Instructions Your Diagnosis Renal cyst Prostate cancer screening Tests Performed Urnls Dip Stick Auto w/o Microscopy POC 83735 US Renal -- Results Pending -- Please [...] [facility] [address] , [place] [address]- [id number] Medications What How Much When Instructions Unchanged [...] Urnls Dip Stick Auto w/o Microscopy POC 45704 (03/13/2023) Bilirubin Urine Dipstick - Negative Blood Urine Dipstick - Negative Glucose Urine Dipstick - Negative Ketones Urine Dipstick - Negative Leukocytes Urine Dipstick - Negative Nitrite Urine Dipstick - Negative Protein Urine Dipstick - Negative Specific [place] Urine Dipstick - 1.015 Urine Appearance Urine [...] be do (more content not included)... Normal [facility] Patient Educationon 03-13-20 23 Patient Education Urology [...] gives to you. In general: ? Take mfca-dsi-rohgyza and prescription medicines only as told by [...] provider. Document Revised: 12/28/2020 Document Reviewed: 12/28/2020 [employer] Patient Education ? 2022 [employer]. Normal [facility] Reminderson 03-13-2023 Reminders - From: Sunshine Treviño To: EU - Recalls Payan; Sent: 03/13/2023 16:04:39 EDT Show up: 01/15/2024 16:04:00 EDT Subject: Renal US Due Date/Time: 02/05/2024 16:04:00 EDT Reminder/Recall Order placed at [facility] to have renal US done prior to 02/2024 appt. Please call to sched patient. Normal [facility] Orders Onlyon 03-10-2023 Orders Only [id number] Jb Thacker 1960 [facility] Provider Department Center 03/10/2023 [id number] [facility] Family History Problem Relation Age of Onset Leukemia Mother Diabetes Father Heart attack Father Family Status - Relation Status Age at Mother Father Normal [facility] ANES POSTPROC EVALon 023 ANES POSTPROC EVAL HNO ID: [id number] Author: Johnathan Melton II, DO Service: Anesthesiology Author Type: Anesthesiologist Type: Anesthesia Postprocedure Evaluation Filed: 03/08/2023 1:09 PM Note Text: POST ANESTHESIA EVALUATION NOTE : 1960 Procedure Summary Date: 03/08/23 Room / Location: [place] [address] / [facility] Anesthesia Start: 1200 Anesthesia Stop: 1221 [...] March 08, 2023 TIME: 1:09 PM CSN: [id number] [facility] ANES PRE-OPon 03-08-2023 ANES PRE-OP HNO ID: [id number] Author: Johnathan Melton II, DO Service: Anesthesiology Author Type: Anesthesiologist Type: Anesthesia Preprocedure Evaluation Filed: 03/08/2023 11:31 AM Note Text: ANESTHESIOLOGY DAY OF SURGERY NOTE : 1960 Procedure Information Date/Time: 03/08/23 1200 Procedures: PHACOEMULSIFICATION CATARACT IMPLANT INTRAOCULAR LENS W/O ENDOSCOPIC CYCLOPHOTOCOAGULATION (Right: Eye) OPHTHALMIC BIOMETRY BY PARTIAL COHERENCE INTERFEROMETRY W/INTRAOCULAR LENS POWER CALCULATION (Right: Eye) Location: [address] Surgeons: Sheree Schaffer V, MD Estimated [...] March 08, 2023 TIME: 11:29 AM CSN: [id number] Normal [facility] OPERATIVE NOon 03-08-2023 OPERATIVE NO HNO ID: [id number] Author: Sheree Schaffer V, MD Service: Ophthalmology Author Type: Physician Type: Operative Report Filed: 03/08/2023 12:18 PM Note Text: OPERATIVE REPORT DATE OF SERVICE: March 08, 2023 PRIMARY SURGEON: Sheree Schaffer M.D. PRODUCTION INSPECTOR: None Procedure(s) (LRB): PHACOEMULSIFICATION CATARACT IMPLANT INTRAOCULAR [...] corneal incision was created temporally with a Protection blade then a 2.4 mm keratome. The [...] Implant Name Type Inv. Item Serial No. Telephone Maintenance Mechanic Lot No. LRB No. Used Action Model No. CLAREON ASPHERIC UV ABSORBING IOL +20.5D Intraocular Lens [id number] [employer] Right 1 Implanted [id number] was inserted through [...] 12:16 PM - Comanage with Dr Breen; [facility] POD #1 Sheree SCHAFFER MD [facility] HISTORY PHYSICALon HISTORY PHYSICAL HNO ID: [id number] Author: Christi Hernandez APRN.SKEIN WASHER Service: ? Author Type: Nurse Practitioner Type: HANDP Filed: 03/01/2023 2:24 PM Note Text: HISTORY AND PHYSICAL EXAMINATION SERVICE DATE: 03/01/2023 SERVICE TIME: 1:44 PM PRIMARY CARE PHYSICIAN: Maria D Petersen PA-C REASON FOR VISIT: Darius Thacker is a 62 year old male who is scheduled for PHACOEMULSIFICATION CATARACT IMPLANT INTRAOCULAR LENS W/O ENDOSCOPIC CYCLOPHOTOCOAGULATION - Right with Shreee Schaffer V, MD on 03/08/2023 BILATERAL at [...] fevers. Neuro: No history of TIA's, stroke, SCRAP MATERIALS BUYER tumor, impaired sensorium, hemiplegia, paraplegia or quadraplegia. No neurological symptoms or problems. Respiratory: No history of current cough or dyspnea, or pneumonia in the past 6 weeks. No history of respiratory/pulmonary symptoms or problems. +JOSE Cardiovascular: Negative for Recent DE, Angina, Chest Pain, DVT/PE + CHF + [...] of bleeding (more content not included)... Normal [facility] ANES POSTPROC EVALon 023 ANES POSTPROC EVAL HNO ID: [id number] Author: Vipul García DO Service: Anesthesiology Author Type: Anesthesiologist Type: Anesthesia Postprocedure Evaluation Filed: 01/11/2023 3:55 PM Note Text: POST ANESTHESIA EVALUATION NOTE : 1960 Procedure Summary Date: 01/11/23 Room / Location: [address] Anesthesia Start: 1325 Anesthesia Stop: 1349 [...] January 11, 2023 TIME: 3:55 PM CSN: [id number] Normal [facility] ANES PRE-OPon 01-11-2023 ANES PRE-OP HNO ID: [id number] Author: Vipul García DO Service: Anesthesiology Author Type: Anesthesiologist Type: Anesthesia Preprocedure Evaluation Filed: 01/11/2023 1:11 PM Note Text: ANESTHESIOLOGY DAY OF SURGERY NOTE : 1960 Procedure Information Date/Time: 01/11/23 1155 Procedures: PHACOEMULSIFICATION CATARACT IMPLANT INTRAOCULAR LENS W/O ENDOSCOPIC CYCLOPHOTOCOAGULATION (Left: Eye) OPHTHALMIC BIOMETRY BY PARTIAL COHERENCE INTERFEROMETRY W/INTRAOCULAR LENS POWER CALCULATION (Left: Eye) Location: [place] [address] / [facility] Surgeons: Sheree Schaffer V, MD Estimated [...] (FLONASE) 50 mcg/actuation nasal spray Use 1 [place] in each nostril as needed. I have interviewed and examined the patient. I have reviewed the medical record and/or the pre-anesthesia evaluation, pertinent labs, and test results. This contains updated information obtained within 48 hours of Surgery/Procedure. SIGNATURE: Vipul García DO PATIENT NAME: Darius Thacker DATE: January 11, 2023 TIME: 1:08 PM CSN: [id number] Normal [facility] OPERATIVE NOon 01-11-2023 OPERATIVE NO HNO ID: [id number] Author: Sheree Schaffer V, MD Service: Ophthalmology Author Type: Physician Type: Operative Report Filed: 01/11/2023 1:46 PM Note Text: OPERATIVE REPORT DATE: January 11, 2023 PRIMARY SURGEON: Sheree Schaffer MD PRODUCTION INSPECTOR: None OPERATION: Phacoemulsification of cataract, insertion of [...] corneal incision was created temporally with a Protection blade then a 2.4 mm keratome. The [...] 1:43 PM - Comanage with Dr Breen; relinquish care POD #1 Sheree SCHAFFER MD [facility] HISTORY PHYSICALon HISTORY PHYSICAL HNO ID: [id number] Author: Sheeba Webster APRN.SKEIN WASHER Service: ? Author Type: Nurse Practitioner Type: [...] (FLONASE) 50 mcg/actuation nasal spray Use 1 [place] in each nostril as needed. Yes No medication comments found. CURRENT ALLERGIES: ALLERGIES No Known Allergies COVID VACCINATION STATUS: Fully vaccinated REVIEW OF SYSTEMS: PAIN ASSESSMENT: General: No weight loss, malaise or fevers. Neuro: No history of TIA's, stroke, SCRAP MATERIALS BUYER tumor, impaired sensorium, hemiplegia, paraplegia or quadraplegia. No neurological symptoms or problems. Positive [place] bilateral hearing aids Respiratory: Positive for Tobacco [...] acute distr (more content not included)... Normal [facility] CNPNon 12-16-2022 CNPN Telephone (OPHTLN) -------- DARIUS THACKER ([id number]) 1960 M Date Time Provider Department 12/16/22 SHEREE SCHAFFER During your visit today, we recorded the following information about you: Kateryna Mclaughlin [facility] 12/16/2022 11:34 AM Signed Called and spoke to patient and scheduled pre op appointments for 12/29. I advised him that we will contact Dr Breen' office and set up the post op appointments (1 day and 1 week). Asked if it was okay that we send him a [employer] message with those appointments. He confirmed [employer] was okay. Add on 01/11 per - call to schedule Received: Yesterday Marina Canales P L[facility] Opht Surg Watershed Manager CHART MADE AND FILED IN [place] PATIENT SCHEDULED FOR SX OS ONLY 01/11/23 - ADD PER MYC OK: --NO CALL TO SCHEDULE PH #: VERIFIED SR/CASE MSG DONE: YES NOTES: POST OPS W/: DR STEFF Schaffer V, MD P Ln Opht Surg Watershed Manager Left eye only Comanage with Dr Breen [...] and surgery - Comanage with Dr Breen; [facility] POD #1 Allergies As of Date: [...] (FLONASE) 50 mcg/actuation nasal spray Use 1 [place] in each nostril as needed. - desvenlafaxine [...] Status:Closed by KATERYNA JAMESON on 12/16/22 Normal [facility] CBC AUTO DIFFon 11-08-2022 BASO # 0.0 103/ul Normal 0.0-0.1 [facility] Comment on above: Performed By: #### C BC #### [facility] [address] [place] [address] Dr. Lenard Maloney Basophils/100 WBC (Bld) 0.7 % Normal 0.2-2.0 [facility] Comment on above: Performed By: #### C BC #### [facility] [address] [place] [address] Dr. Lenadr Maloney EO # 0.2 103/ul Normal 0.0-0.7 [facility] Comment on above: Performed By: #### C BC #### [facility] [address] [place] [address] Dr. Lenard Maloney Eosinophils/100 WBC (Bld) 2.8 % Normal 0.9-7.0 [facility] Comment on above: Performed By: #### C BC #### [facility] [address] [place] [address] Dr. Lenard Maloney Erythrocyte distribution width (RBC) [Ratio] 11.6 % Normal 11.0-15.0 [facility] Comment on above: Performed By: #### C BC #### [facility] [address] [place] [address] Dr. Lenard Maloney Hematocrit (Bld) [Volume fraction] 41.1 % Critically low 42.0-54.0 [facility] Comment on above: Performed By: #### C BC #### [facility] [address] [place] [address] Dr. Lenard Maloney Hemoglobin (Bld) [Mass/Vol] 14.3 g/dL Normal 14.0-18.0 [facility] Comment on above: Performed By: #### C BC #### [facility] [address] [place] [address] Dr. Lenard Maloney IG # 0.01 10e3/ul Normal 0.00-0.03 [facility] Comment on above: Performed By: #### C BC #### [facility] [address] [place] [address] Dr. Lenard Maloney IG % 0.2 % Normal 0.0-0.5 [facility] Comment on above: Performed By: #### C BC #### [facility] [address] [place] [address] Dr. Lenard Maloney LYMPH # 2.1 103/ul Normal 1.2-3.8 [facility] Comment on above: Performed By: #### C BC #### [facility] [address] [place] [address] Dr. Lenard Maloney Lymphocytes/100 WBC (Bld) 34.5 % Normal 20.5-60.0 [facility] Comment on above: Performed By: #### C BC #### [facility] [address] [place] [address] Dr. Lenard Maloney MANUAL DIFF REQ NO Normal [facility] Comment on above: Performed By: #### C BC #### [facility] [address] [place] [address] Dr. Lenard Maloney MCH (RBC) [Entitic mass] 33.3 pg Normal 25.9-34.0 [facility] Comment on above: Performed By: #### C BC #### [facility] [address] [place] [address] Dr. Lenard Maloney MCHC (RBC) [Mass/Vol] 34.8 g/dL Normal 29.9-35.2 [facility] Comment on above: Performed By: #### C BC #### [facility] [address] [place] [address] Dr. Lenard Maloney MCV (RBC) [Entitic vol] 95.8 fL Critically high 80.0-94.0 [facility] Comment on above: Performed By: #### C BC #### [facility] [address] [address] [address] Lenard Maloney MONO # 0.6 103/ul Normal 0.3-0.8 [facility] Comment on above: Performed By: #### C BC #### [facility] [address] [address] [address] Lenard Maloney Monocytes/100 WBC (Bld) 10.0 % Normal 1.7-12.0 [facility] Comment on above: Performed By: #### C BC #### [facility] [address] [address] [address] Lenard Maloney NEUT # 3.2 103/ul Normal 1.4-6.5 [facility] Comment on above: Performed By: #### C BC #### [facility] [address] [place] [address] Dr. Lenard Maloney Neutrophils/100 WBC (Bld) 51.8 % Normal 43.0-75.0 [facility] Comment on above: Performed By: #### C BC #### [facility] [address] [address] [address] Lenard Maloney Platelet mean volume (Bld) [Entitic vol] 8.0 fL Critically low 9.5-13.5 [facility] Comment on above: Performed By: #### C BC #### [facility] [address] [address] [address] Lenard Maloney PLT 224 103/ul Normal 150-450 [facility] Comment on above: Performed By: #### C BC #### [facility] [address] [address] [address] Lenard Maloney RBC 4.29 106/ul Critically low 4.70-6.10 [facility] Comment on above: Performed By: #### C BC #### [facility] [address] [address] [address] Lenard Maloney WBC 6.1 103/ul Normal 4.0-11.0 [facility] Comment on above: Performed By: #### C BC #### [facility] [address] [address] [address] Lenard Maloney LIPID PROFILEon 11-08-2022 CHOL-HDL RATIO NORM SEE BELOW Normal [facility] Comment on above: Result Comment: 3.3 - 4.4 LOW RISK 4.4 - 7.1 AVERAGE RISK 7.1 - 11.0 MODERATE RISK >11.0 HIGH RISK Performed By: #### L IPID, CMP #### [facility] [address] [address] [address] Lenard Maloney Cholesterol [Mass/Vol] 195 mg/dL Normal <=200 [facility] Comment on above: Performed By: #### L IPID, CMP #### [facility] [address] [address] [address] Lenard Maloney Cholesterol in HDL [Mass/Vol] 102 mg/dL Critically high 40-60 [facility] Comment on above: Performed By: #### L IPID, CMP #### [facility] [address] [address] [address] Lenard Maloney Cholesterol in LDL [Mass/Vol] 70.0 mg/dL Normal [facility] Comment on above: Performed By: #### L IPID, CMP #### [facility] [address] [address] [address] Lenard Maloney Cholesterol.total/ Cholesterol in HDL [Mass ratio] 1.9 {ratio} Normal [facility] Comment on above: Performed By: #### L IPID, CMP #### [facility] [address] [address] [address] Lenard Maloney HDL NORMAL > or = 60 mg/dl - LO W CARDIOVASCULAR RISK <40 mg/dl - HIGH CARDIOVASCULAR RISK Normal [facility] Comment on above: Performed By: #### L IPID, CMP #### [facility] [address] [address] [address] Lenard Maloney LDL CALC NORMAL SEE BELOW Normal [facility] Comment on above: Result Comment: <100 mg/dl OPTIMAL 100 - 129 mg/dl NEAR OR ABOVE OPTIMAL 130 - 159 mg/dl BORDERLINE HIGH 160 - 189 mg/dl HIGH >190 mg/dl VERY HIGH Performed By: #### L IPID, CMP #### [facility] [address] [address] [address] Lenard Maloney Triglyceride [Mass/Vol] 115 mg/dL Normal <=150 [facility] Comment on above: Performed By: #### L IPID, CMP #### [facility] [address] [address] [address] Lenard Maloney VLDL CALC 23.0 mg/dL Normal [facility] Comment on above: Performed By: #### L IPID, CMP #### [facility] [address] [address] [address] Lenard Maloney PROF 14(COMP METB)on 023 Albumin [Mass/Vol] 4.5 g/dL Normal 3.4-5.[address] [facility] Comment on above: Performed By: #### L IPID, CMP #### [facility] [address] [place] [address] Dr. Lenard Maloney Albumin/Globulin [Mass ratio] 1.4 {ratio} Normal [facility] Comment on above: Performed By: #### L IPID, CMP #### [facility] [address] [place] [address] Dr. Lenard Maloney ALP [Catalytic activity/Vol] 49 U/L Normal 46-116 [facility] Comment on above: Performed By: #### L IPID, CMP #### [facility] [address] [place] [address] Dr. Lenard Maloney ALT [Catalytic activity/Vol] 26 U/L Normal 16-63 [facility] Comment on above: Performed By: #### L IPID, CMP #### [facility] [address] [place] [address] Dr. Lenard Maloney Anion gap [Moles/Vol] 14.2 mmol/L Normal [facility] Comment on above: Performed By: #### L IPID, CMP #### [facility] [address] [place] [address] Dr. Lenard Maloney AST [Catalytic activity/Vol] 23 U/L Normal 15-37 [facility] Comment on above: Performed By: #### L IPID, CMP #### [facility] [address] [address] [address] Lenard Maloney Bilirubin [Mass/Vol] 0.6 mg/dL Normal 0.2-1.0 [facility] Comment on above: Performed By: #### L IPID, CMP #### [facility] [address] [place] [address] Dr. Lenard Maloney Calcium [Mass/Vol] 9.2 mg/dL Normal 8.5-10.[address] [facility] Comment on above: Performed By: #### L IPID, CMP #### [facility] [address] [address] [address] Lenard Maloney Chloride [Moles/Vol] 97 mmol/L Critically low 98-107 [facility] Comment on above: Performed By: #### L IPID, CMP #### [facility] [address] [place] [address] Dr. Lenard Maloney CO2 [Moles/Vol] 28.7 mmol/L Normal 21.0-32.0 [facility] Comment on above: Performed By: #### L IPID, CMP #### [facility] [address] [place] [address] Dr. Lenard Maloney Creatinine [Mass/Vol] 0.84 mg/dL Normal 0.70-1.30 [facility] Comment on above: Performed By: #### L IPID, CMP #### [facility] [address] [place] [address] Dr. Lenard Maloney EGFR-AF DANISH >60 Normal >=60 [facility] Comment on above: Performed By: #### L IPID, CMP #### [facility] [address] [place] [address] Dr. Lenard Maloney EGFR-NON AF DANISH >60 Normal >=60 [facility] Comment on above: Performed By: #### L IPID, CMP #### [facility] [address] [place] [address] Dr. Lenard Maloney Globulin (S) [Mass/Vol] 3.2 g/dL Normal [facility] Comment on above: Performed By: #### L IPID, CMP #### [facility] [address] [address] [address] Lenard Maloney Glucose [Mass/Vol] 109 mg/dL Critically high 74-106 [facility] Comment on above: Performed By: #### L IPID, CMP #### [facility] [address] [address] [address] Lenard Maloney Potassium [Moles/Vol] 3.9 mmol/L Normal 3.5-5.1 [facility] Comment on above: Performed By: #### L IPID, CMP #### [facility] [address] [place] [address] Dr. Lenard Maloney Protein [Mass/Vol] 7.7 g/dL Normal 6.4-8.[address] [facility] Comment on above: Performed By: #### L IPID, CMP #### [facility] [address] [place] [address] Dr. Lenard Maloney Sodium [Moles/Vol] 136 mmol/L Normal 136-[address] [facility] Comment on above: Performed By: #### L IPID, CMP #### [facility] [address] [address] [address] Lenard Maloney Urea nitrogen [Mass/Vol] 17.0 mg/dL Normal 7.0-18.0 [facility] Comment on above: Performed By: #### L IPID, CMP #### [facility] [address] [place] [address] Dr. Lenard Maloney Urea nitrogen/Creatinin e [Mass ratio] 20.2 mg/mg Normal [facility] Comment on above: Performed By: #### L IPID, CMP #### [facility] [address] [place] [address] Dr. Lenard Maloney Coding Summary.on 10-15-2022 Coding Summary. CD:[id number] Ww+P GhlYWQ+XX6RTQPzN14fnQXkd S5yN6ZPYLqFObspZMNALFdLH kMzzhNoIV9tzSKwSKVp IC8+XR9zOPVbPqlqmGUel8V1 wEG2W24jto6zSWwpzKD1VBSc CiQcqnzsy9yllFu6QQdzUadp OyBt MKIdkE40GWP0jR84Lj70mTSf qWSvj3hwtTj3SaMpQQBhAEB2 dTuiHWnpo9CjZJCyI95vfFPn c2U6 VFJezKjwzVUaDrMhuHN5sX4o KBhwhdotq0encgojUxr3pi31 xHKhw9C2kGN7Y1KaxjC4AWXh bGQg EgwclSVRyC6denkyf1yqwuqx IyPsCWIsETg5RVk9GPXytKoh AhToMH60TEK7UDPfswNiM8Ld LWFs yWblKbY4n5W4Jn8OM2ITIhtm P1FIBVFGAFyoqJE+VG13gv68 N3PrWwrrYag4LYBuWGK8yNN3 aD0n HTFgKSgzp4T9zWA3K3UxsgMb ty8vd9svFRPhNCtaE42moFFz g4Y2YUSfaDA2YRMzsIobWkGj aG93 Oyc+PSTbaJawl3DaRcckg2yy k3lyvNq7SgmyZGUugyWiwCbk IJJ4u5WrCf0hQVKdfVK1lSS1 aD0i OfOoIdF6KLzjM572JgXmaRRg LjgeC41yK7SnkHJ+PHRyPjx0 JYBdcKigKM4jQ7CgFOGlgluz bGVm tOsvYI2rQTZlelemXHEjgM3c AHJbY6p3WbAdSpB3FIleB4Ts HFDrrqmyKh40cR2vFiKkUqI4 MGlu Q3AltxD6PZYdgUDcCBijRMG7 P14oh6X6FYRjDZHeXYY8fVQ9 oU0esUxobbvncWLteLkvntDv dGlj TXdbBRvbV424OMUvpAlvYaNy ZGluZyBEYXRlOiAgMDQvMDEv MjAyMzwvdGQ+YBLhGEY2eYie PSAn uOCoPSdqUe3tmYijjCwdKR5x LAQcgqbzVSYwqN8tHTIwfIMy dJwrLI8rNPWmxxqhx208ZoZq MHB0 EXZnuTNhV3GxxE6nZtCdGAUj SOSoQ3HmoFAxMFfgU376BCwi AyV6FQThvgXjT2BnQMEoiDxs OiB0 z1R2Fm0Xs4IayvmsP8XdcMTa ToUiIwatETj3O9DqAterfGD+ DF56AVEtUB01EQp8ZKT5nKeg PSdi UJXoP6RzyV7gKnEpMSLlSKWb Oyc+PHRhYmxlIHdpZHRoPScx GGAyIiDazCadVZ0zOr8aUVXl LWNv bRfrtIItNxJjd1rgLPAnNGnu KO4xmAxmF7AmwTF3SHMkh2f9 Od74Z24wZ8YkoTK+PGNvbCB3 aWR0 eH2cNcHpDkG4GZurI900EfJh cNVcPvgcy2xyc7ihwKa0OrI5 DSYgppFivDarLCN2r7ErKy64 Y29s IHdpZHRoPSIxNSUiIHZhbGln hf6scZ1rVm6+XMUmoLO8cFM2 dB0rHzJhUaS7ZOwuE167BnXe cCIv Dmbdg9wxv1qebLk6ZbCrRFMy fdLegBhcUUO5z9WiKo55M0Zl lJnko0NsXnc6an45cVObg4Y9 bGU9 Z9BbHQFlmpmltPZfdCilYB3x KXJmzyldQMIofH2nIAYuZ2v2 CrBkMaY8KSpgC6AsxnY4BRLn bGQg NLEonDFZmO7keioug5uaakjo UdOlPFEtWJl4OXk6NZYjqTfi TpOcWQJ2JhX8FIF4dHZwpA2d bGln knrukI1oNxz+HXH7fMZxaHTZ IU1aDmulgFL+QRScTPX7nLbh FEqnAHYylG4dQGYfV3x3AvPe LjA1 KIrkV7ZulaW1HEGtpDLpANYv dFKZaY4qsrbue0neqgrdFtRx XGTsOUu6ZWc1SXXfpWbuVeRw ZWZ0 IzZ0VGT6lMXgzH7ibMlumryd uW9aPmz+OcbfbHuzZTU4HJa2 S6OzLyg9ZNNwcZpyDV2izRBz ZGlu Wd4gwUmyaYcyVS1vROQzkycu k841EjQkj7frQUYmrHZvDIun YSI1T96wb6D8UXKmNYIeWWD1 dGV4 eS8nqXugjdfifGCjbRltyzHp uYfyOZoxSFetB646YXYkmLxk WqOoTOa4J6PmNsj4OFRtlWry ZT0n yKZoPCiiOc0vwZklzMpjXR2x BPTfehefv802EhKjj1tzEFXd uDOwKGxhZYJ1Q36fg5A7CELo MDAw EWS3pBF4sU1ubWmbslmbqWHz dAtjoqFfwPlnKQqtJBvtV215 RCQkzFiwSxNgbNf7R7IuSbe6 ZCBz bVwgVV5jzSLeTKkpJp4ieOzm iTxhMA0yAEFmdqraj829PpZi v3xiQRDvcOAbYZxaVDM1P84q b3I6 UVAdLDStBPS0mGL7uE6wuXxv bjogbGVmdDsgdmVydGljYWwt NJgbW827GQWkmDupIwUxmIoj bnQg YCddBTe4H2EaNtoscCI+PC90 LCJjOY13aJNvaFEhh8kofAb2 OdVxBSPyWVR4qHedPWtns6Yi ZXIt T58iqRCce5O6ODHcpApjlIZo PpLanBE2aO9wNGrwitjvc2xr mrliSsldr5bwom36hX97W69v IHdp XDZnEILiBRQgWGSvqTpjbi5k oD2vMv6+JGYyhCF9dBY1mF3w IKYiAcO9NPphD733CkXesKPb Pjxj o5yzr5cqgHg5XxJ5REAeboVo aRccTKP2o8PdMm27H39hVBun UCKwJKJtPJIzYNQnxLlble6c dG9w Ii8+PKGbcCR2uOJ1pV6lHyUc OpQ0IQemL061IvDnxOToMjfw B04fY6CklPK+JSYyWfx9EJKu dHls ND6ynKRoPYkaBx3fRLO2GbNv XfMeKNdgY3GsCLXzpiphdrnf oIX3NQNnVBIxvT31Gb5akIww MTBw lOAOfY2ralmjk4sqlmtlBpPa ZAEqTBe0NAv1BVNhkSjwEqBr KNL4EfT2CJL7hSTrwT8gvYrx bjog dC2vT8CpTAEfajouWw68lX8f MuNcZhA7ZOemBtm+TVlFUlMs IFNURVZFTjwvdGQ+PHRkIHN0 eWxl PDavRNNkzE9pHOUpM6x1JaBv EpS9PKkaW7QrCZOwugdsGi16 gP0yGaCmTbU7PZheE8MkdxR8 IDEw uTVdAUwaMHI2K42ka0J2NSYh KPCzUXI5zOH9uY5orNdrhlzw bGVmdDsgdmVydGljYWwtYWxp Z246 LMWklNxfPsT6JnC5BwS3SiV9 I5TsEuf7OQGyzQsxRM3hcMLm DNweVi6uqFmtzRouSO1dZRXv bjtw TTIheE8wZIOnmWCpvTeoFS4q MABgvuwyn930TyLvUVW3VNBv yGEoB2ClzK9iCtZhEXXeMBXs O3Rl vWXgJNqfI066OWdvByA7KDBu lrRuU6AyAELbmGpfJjQ0k9D1 Zw71TKSYKXRqczyarMD+PHRk IHN0 nDfsJCaoKXLcwO0vNINjR4e2 OiMeFaK4ZQcxM8QeTEQnbzfo Zx47eO8iLtHcVpI3HOqjG0Ct bnQ6 SGZtvDSlJWkyDCX2T29xe6U8 USFaOSBeLAA6aFD3lZ7jqMss bjogbGVmdDsgdmVydGljYWwt YWxp U458ULXcgUroVm9mvNH4T6Dr Vbt9GFIyhFjtNW8qcYGaHAmm Up9nhXnroHjjMQ0hRRLyzhju YWRk dR1gDYPxjANigMhdXX0uBARs eawpn233OxWfJJD9MANfcYBj Z6VhhX4jKlIhIBFjWUHtN9Yl eHQt TVlwK124HTzuMeU5OJOxqjXj K6ItPCHaxYviGxT9v5A1Ai7Z uZSlYLChRV50XQ48WP78E9Zj Pjwv dGFibGU+PHRhYmxlIHdpZHRo NUqeOGBnDmTyyXzvVY0eUj7f JJLpEZVgvRayiLLsOaEem9ly YXBz SMtlFY6asKkvV0EsvGQ5THUx u0v1Nr89Q77pO5PqlOB+PGNv jLX6oCW4rD9dKaQqRxC5GRqr Z249 DxUuqGCiWzcgv9slc4igaJe2 XzKkEAAlfcRolQifNPA7j5Ec Yo51U37oTNslMBFtLJXzKFId IHZh pCvgdo2gbC7nEu9+PGNvbCB3 yFO6yS0dOuTdMeY8OCvbL716 AaMkiSOnVchbE78nP1DxvYP+ PHRy Yzz3WUYckFdhPV5gsUNfIGat Zc9tVIS2EkOqYbOpRThnY7Jk JKKnqqafmeujtOQ7RRKjEJQb aW47 Wd1tlJsdCf1wLFZqGZX9CZWw nUIsJ2DlqG5bXnWcYTPjETKp Z0EhzLKzYOhrM965COhfHxD6 IHZl itZrC8IxEGFslXqeXgD5b4Z0 Ba1QsLxzoQMgQO5gUxChTJu7 B8GoMnc2EVQdxWdoRF1vcYLz ZGlu Bk5aqZpspMhaDW0tSEDdgcpq c781HtVni5lnPGPwdLVeVQgu PDE2E06on6I2RTHjWJUvSMK7 dGV4 oG7xcLmzxgcszJFdqHnekqKd yLezESoqWLjoK228EDReqDrv FzRQFyq6Y7AcKqg9DIIviQir ZT0n lFVmIPrxDl7kvCccnAysKT3z CVAczpwpu093AuZnh1hnSHHq oFGiMBokPNP1I83rx2X6CPKp MDAw ANL9aTB3aM5svSaqybjspBKc zFvfmhIewOrgAIoxEGprG359 XRXapKypRj3MPvv3G2FkPvc2 ZCBz vEemJT0erFIwAYqyZj6qpYme cYidAX1kEASnzkctb561SvUl o5hfLTMbeLKlTNaeYZY4M47j b3I6 DWSxJVElCXQ8tTG9vS5pmLkm bjogbGVmdDsgdmVydGljYWwt FWdlL814XSZlwIquKbLtnMLt Ojwv dGQ+HB45cc56J2QwImaiYnw2 TIWhUQN9rWS3wP1lMCJvCAut x7U3iCX2C2AaulRuty0dr0zl YXBz LDxbQ84q (more content not included)... Normal [facility] US Renalon 10-13-2022 US Renal Exam Date/Time: [...] Odonnell M.D. Transcribed by: JESSICA Technologist: NGA [facility] Consent for Treatmenton 09-15 Consent for Treatment [id number]: 127 [facility] Physician Orderon 10-06-2022 Physician Order [id number]:1 27 [facility] No Panel Informationon 08-10 [facility] No Panel Information [facility] Vital Signs Date Time Vital Sign Value Performing Clinician Melanie wade 12-29-2022 13:30-0400 Body height 177.8 cm Pacc 2 Work Phone: [facility] 12-29-2022 13:30-0400 Body temperature 97.2 [degF] Pacc 2 Work Phone: [facility] 12-29-2022 13:30-0400 Body weight 80.74 kg Pacc 2 Work Phone: [facility] 12-29-2022 13:30-0400 Diastolic blood pressure 75 mm[Hg] Pacc 2 Work Phone: [facility] 12-29-2022 13:30-0400 Heart rate 57 /min Pacc 2 Work Phone: [facility] 12-29-2022 13:30-0400 Respiratory rate 16 /min Pacc 2 Work Phone: [facility] 12-29-2022 13:30-0400 SaO2% (BldA) [Mass fraction] 100 % Pacc 2 Work Phone: [facility] 12-29-2022 13:30-0400 Systolic blood pressure 115 mm[Hg] Pacc 2 Work Phone: [facility] 05-18-2022 14:19-0400 Body weight 74.66 kg Barber Snow DO Work Phone: [facility] 05-18-2022 14:19-0400 Diastolic blood pressure 70 mm[Hg] Barber Mendis DO Work Phone: [facility] 05-18-2022 14:19-0400 Heart rate 73 /min Barber Snow DO Work Phone: [facility] 05-18-2022 14:19-0400 Systolic blood pressure 107 mm[Hg] Barber Abelis DO Work Phone: [facility] Encounters Encounter Date Encounter Type Care Provider Facility Start: 03-08-2024 ambulatory Francois Little ty:[facility] Start: 01-23-2024 End: 01-23-2024 ambulatory JOSE MANUEL NG [facility] Start: 11-16-2023 End: 11-16-2023 ambulatory MARIA D PETERSEN Not Available Start: 10-25-2023 End: 10-25-2023 ambulatory NICOLE RYAN Facility:[facility] Start: 10-25-2023 End: 10-25-2023 Patient encounter procedure Nicole Ryan OD Work Phone: Ophthalmology Comment on above: Keratoconjunctivitis sicca of both eyes not specified as Sjogren's (Primary Dx); 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 of both eyes; Pinguecula of left eye; Pterygium, right; Pseudophakia of both eyes; History of YAG laser capsulotomy of lens, left Start: 09-18-2023 ambulatory Barebr donald Work Phone: Spine Medicine Comment on above: Back Pain Start: 09-12-2023 End: 09-12-2023 ambulatory ARTURO DODGE Not Available Start: 06-27-2023 End: 06-27-2023 ambulatory [facility] Start: 06-20-2023 End: 06-20-2023 ambulatory ARTURO DODGE Not Available Start: 06-01-2023 End: 06-01-2023 ambulatory SHEREE SCHAFFER V Facility:[facility] Start: 06-01-2023 End: 06-01-2023 Patient encounter procedure Sheree Schaffer MD Work Phone: Ophthalmology Comment on above: Left posterior capsu lar opacification (Primary Dx); Pseudophakia of both eyes Start: 05-19-2023 End: 05-19-2023 ambulatory [facility] Start: 04-20-2023 End: 04-20-2023 ambulatory ARTURO TEJADA Facility:[facility] Start: 04-12-2023 End: 04-12-2023 ambulatory ARTURO TEJADA Facility:[facility] Start: 03-13-2023 End: 03-14-2023 ambulatory Rosaura Moseley Facility:[facility] Start: 03-13-2023 End: 03-13-2023 Patient encounter procedure Francois PAYAN [facility] Jennifer Start: 03-08-2023 End: 03-08-2023 ambulatory MARIA D PETERSEN Facility:[facility] Start: 03-08-2023 End: 03-08-2023 Patient encounter procedure Beatriz Figueroa OD Work Phone: Ophthalmology Comment on above: S/P cataract extract ion and insertion of intraocular lens, left (Primary Dx) Start: 03-01-2023 End: 03-01-2023 ambulatory SHEREE KARIME V Facility:[facility] Start: 01-13-2023 Refill Sheree Schaffer MD Work Phone: Ophthalmology Comment on above: Refill Request Start: 01-11-2023 End: 01-11-2023 ambulatory SHEREE KARIME V Facility:[facility] Start: 12-29-2022 End: 12-29-2022 Patient encounter procedure Eye Measurements Work Phone: Ophthalmology Comment on above: Combined forms of ag e-related cataract of both eyes Start: 12-29-2022 End: 12-29-2022 Admission to [facility] 2 Work Phone: [facility] Start: 12-29-2022 End: 12-29-2022 [facility] 2 Work Phone: Pre Anesthesia Comment on above: Pre-op evaluation (P rimary Dx); JOSE (obstructive sleep apnea); Uncomplicated asthma, unspecified asthma severity, unspecified whether persistent; Hyperlipidemia, unspecified hyperlipidemia type; Heart failure, unspecified HF chronicity, unspecified heart failure type (HCC); Essential (primary) hypertension; Generalized ischemic myocardial dysfunction Start: 12-29-2022 End: 12-29-2022 Preprocedural examination done [facility] 2 Work Phone: Pre Anesthesia Start: 12-21-2022 End: 12-21-2022 ambulatory SHEREE KARIME V Facility:[facility] Start: 12-16-2022 Telephone encounter Sheree george MD Work Phone: Ophthalmology Comment on above: Schedule Surgery Start: 12-15-2022 End: 12-15-2022 ambulatory SHEREE KARIME V Facility:[facility] Start: 12-15-2022 End: 12-15-2022 Patient encounter procedure Sheree Schaffer MD Work Phone: Ophthalmology Comment on above: Combined forms of ag e-related cataract of both eyes (Primary Dx); Myopia with astigmatism and presbyopia, bilateral Start: 11-15-2022 ambulatory Francois PAYAN Facility :[facility] Start: 11-08-2022 End: 11-09-2022 ambulatory MARIA D PETERSEN Facility:[facility] Start: 10-31-2022 End: 10-31-2022 ambulatory Barber Snow DO Work Phone: Spine Medicine Comment on above: Chronic right-sided low back pain with right-sided sciatica (Primary Dx); Radiculopathy of lumbar region Start: 10-31-2022 End: 10-31-2022 Telemedicine consultation with patient Barber Snow DO Work Phone: [facility] Start: 10-11-2022 End: 10-12-2022 ambulatory Maria D PETERSEN [facility] Start: 10-11-2022 End: 10-11-2022 Patient encounter procedure Maria D PETERSEN [facility] Start: 10-11-2022 Telephone encounter Barber Penn Arabella Work Phone: [facility] [place] Comment on above: post injection follo w up Start: 09-27-2022 Telephone encounter Barber G Arabella ARCHULETA Work Phone: [facility] [place] Comment on above: Preparations For Pro cedures (Pre-injection call) Start: 09-16-2022 End: 09-16-2022 ambulatory CAMILA Petersen Work Phone: [facility] Work Phone: Start: 09-16-2022 End: 09-16-2022 Discharged Recurring CAMILA Petersen Work Phone: [facility] [address] Start: 08-10-2022 End: 08-10-2022 Subsequent hospital visit by physician [facility] (Istat/1.5) Work Phone: [facility] MRI Comment on above: Chronic right-sided low back pain with right-sided sciatica [M54.41, G89.29] Start: 07-25-2022 End: 07-25-2022 ambulatory Barber Snow DO Work Phone: Spine Medicine Comment on above: Chronic right-sided low back pain with right-sided sciatica (Primary Dx); Lumbosacral radiculitis; Radiculopathy of lumbar region Start: 07-25-2022 End: 07-25-2022 Telemedicine consultation with patient Barber Webber Phone: [facility] Start: 07-21-2022 Telephone encounter Barber Snow DO Work Phone: Spine Medicine Comment on above: Orders Start: 05-18-2022 End: 05-18-2022 Patient encounter procedure Barber Snow DO Work Phone: Spine Medicine Comment on above: Acute right-sided lo w back pain with right-sided sciatica (Primary Dx); Lumbosacral radiculitis Start: 12-16-2021 ambulatory NORA OLIVA Facility : Start: 10-22-2018 End: 10-23-2018 Patient encounter procedure DEFAULT PHYSICIAN Facility:[facility] Start: 10-02-2018 End: 10-03-2018 Patient encounter procedure PROVIDER UNKNOWN Facility:[facility] Start: 09-20-2018 End: 09-21-2018 Patient encounter procedure DEFAULT PHYSICIAN Facility:[facility] Start: 09-12-2018 End: 09-13-2018 Patient encounter procedure DEFAULT PHYSICIAN Facility:[facility] Procedures Date Procedure Procedure Detail Performing Clinician [...] - S jake or Plasma Lipid Screening [facility] Start: 11-09-2027 Lipid panel Lipid Screening [facility] Start: 11-09-2027 LIPID SCREEN LIPID SCREEN [facility] Start: 08-01-2026 Urine microalbumin profile [facility] Start: 10-18-2025 DIABETES SCREEN DIABETES SCREEN [facility] Start: 10-18-2025 Diabetes Screening Diabetes Screenin g [facility] Start: 03-17-2024 Influenza vaccination Influenz a Vaccine (Season Ended) [facility] Start: 03-01-2024 BP CONTROLLED (<130/80) BP CONTROLLE D (<130/80) [facility] Start: 12-30-2023 BP CONTROLLED (<130/80) BP CONTROLLE D (<130/80) [facility] Start: 12-15-2023 End: 06-07-2024 IOL BIOMETRY W/ IOL CALC OU (BOTH EYES) IOL BIOMETRY W/ IOL CALC OU (BOTH EYES) OPHT Imaging Routine Combined forms of age-related cataract of both eyes Expected: 12/15/2023, Expires: 06/07/2024 [facility] Work Phone: Comment on above: Expected: 12/15/2023 , Expires: 06/07/2024 Start: 07-17-2023 Behavioral Health Screening Behavioral Health Screening [facility] Start: 07-17-2023 Depression Assessment Depression Ass essment [facility] Start: 03-17-2023 Covid-19 Vaccine () Covid-19 Vaccine () [facility] Start: 03-17-2023 Influenza vaccination C [facility] Start: 08-16-2022 SHINGRIX VACCINE (2 of 2) SHINGRIX VACCINE (2 of 2) [facility] Start: 07-17-2022 [facility]PRESSION [facility]MENT [facility] Start: 03-17-2022 Influenza vaccination INFLUENZA (#1) [facility] Start: 07-17-2021 DEPRESSION ASSESSMENT [facility]ION ASS [facility] Start: 07-06-2021 COVID-19 VACCINE (4 - Booster for Moderna series) COVID-19 VACCINE (4 - Booster for Moderna series) [facility] Start: 2021 RSV Vaccine (1 - 1-d ose 60+ series) RSV Vaccine (1 - 1-dose 60+ series) [facility] Start: 2016 PROSTATE CANCER SCREENING DISCUSSION PROSTATE CANCER SCREENING DISCUSSION [facility] Start: 2016 Prostate specific antigen measurement Prostate Cancer Screening Discussion [facility] Start: 2011 SHINGRIX VACCINE (1 of 2) SHINGRIX VACCINE (1 of 2) [facility] Start: 2006 COLOGUARD (FIT-DNA) COLOGUARD (FIT-D NA) [facility] Start: 2006 Colonoscopy COLONOSCOPY [facility] Start: 2006 COLORECTAL CANCER SCREENING COLORECTAL CANCER SCREENING [facility] Start: [address] COLONOGRAPHY [facility] Start: 2006 DIABETES SCREEN DIABETES SCREEN [facility] Start: 2006 FECAL OCCULT BLOOD FECAL OCCULT BLOO D [facility] Start: 2006 Screening for malign ant neoplasm of colon [facility] Start: 2006 SIGMOIDOSCOPY SIGMOIDOSCOPY [facility] Start: 1996 LIPID SCREEN LIPID SCREEN [facility] Start: 1980 Urine microalbumin profile DTAP,TDAP,TD (1 - Tdap) [facility] Start: 1979 ANNUAL PCP TEAM CERTIFIED EXECUTIVE CHEF GIO DISEASE VISIT ANNUAL PCP TEAM CHRONIC DISEASE VISIT [facility] Start: 1979 HEPATITIS C SCREENING HEPATITIS C [facility] Start: 1979 Hepatitis C screening Hepatitis C [facility] Start: 1979 HIV SCREENING HIV SCREENING [facility] Start: 1979 HIV screening HIV Screening [facility] Start: 1979 SPIROMETRY SPIROMETRY [facility] Start: 1967 PNEUMOCOCCAL (1 - PCV) PNEUMOCOCCAL (1 - PCV) [facility] End: 05-31-2024 CORNEAL TOPOGRAPHY PENTACAM OU (BOTH EYES) CORNEAL TOPOGRAPHY PENTACAM OU (BOTH EYES) OPHT Imaging Routine Combined forms of age-related cataract of both eyes 1 Occurrences starting 12/08/2022 until 05/31/2024 [facility] Work Phone: Comment on above: 1 Occurrences starti ng 12/08/2022 until 05/31/2024 End: 05-31-2024 OCT MACULA CIRRUS OU (BOTH EYES) OCT MACULA CIRRUS OU (BOTH EYES) OPHT Imaging Routine Combined forms of age-related cataract of both eyes 1 Occurrences starting 12/08/2022 until 05/31/2024 [facility] Work Phone: Comment on above: 1 Occurrences starti ng 12/08/2022 until 05/31/2024 [facility] Immunizations Immunization Date Immunization Notes Care Provider Fa ray 06-21-2022 pneumococcal (PCV20) vaccine, 20 valent (PREVNAR 20) Pacc 2 Work Phone: [facility] 06-21-2022 zoster vaccine recombinant Pacc 2 Work Phone: [facility] 05-31-2022 influenza virus vaccine, unspecified formulation Francois PAYAN [facility] 05-31-2022 influenza, injectabl e, quadrivalent, preservative free Pacc 2 Work Phone: [facility] 05-31-2022 SARS-CoV-2 (COVID-19 ) [id number] Francois PAYAN [facility] 05-11-2021 SARS-CoV-2 (COVID-19 ) mRNA-1273 vaccine Francois PAYAN [facility] Comment on above: Result Comment: 2022: [id number] 11-12-2020 SARS-CoV-2 (COVID-19 ) mRNA-1273 vaccine Francois PAYAN [facility] 10-19-2020 SARS-CoV-2 (COVID-19 ) mRNA-1273 vaccine Francois PAYAN [facility] 05-24-2018 influenza virus vaccine, unspecified formulation Francois PAYAN [facility] 05-24-2018 influenza, injectabl e, quadrivalent, preservative free Pacc 2 Work Phone: [facility] 08-01-2016 tetanus toxoid, redu yonis diphtheria toxoid, and acellular pertussis vaccine, adsorbed Pacc 2 Work Phone: [facility] 07-21-2016 influenza virus vaccine, unspecified formulation Francois PAYAN [facility] 07-21-2016 influenza, injectabl e, quadrivalent, contains preservative Pacc 2 Work Phone: [facility] Payers Date Payer Category Payer Unknown [id number] 2022 Self-pay [id number] 2021 Unknown 2006 Private Health Insurance [id number] 1961 Unknown [id number] ..[id number] 1961 Unknown [id number] .[id number] 1961 Unknown [id number] ..[id number] 1961 Unknown [id number] 2.16.840.1.984347.3.579.2.647 1961 Unknown [id number] 2.16.840.1.997279.3.579.2.593 1961 Unknown [id number] 2.16.840.1.117320.3.579.2.593 1961 Unknown [id number] 2.16.840.1.480214.3.579.2.727 1961 Unknown [id number] 2.16.840.1.913155.3.579.2.727 1961 Unknown [id number] 2.16.840.1.644148.3.579.2.727 1961 Unknown [id number] 2.16.840.1.323297.3.579.2.727 1961 Unknown [id number] 2.16.840.1.207741.3.579.2.1259 1961 Unknown [id number] 2.16.840.1.114844.3.579.2.1259 1961 Unknown [id number] 2.16.840.1.481416.3.579.2.1259 1959 Self-pay [id number] 1959 Unknown [id number] Unknown [id number] Unknown [facility] [place] [id number] Unknown [id number] [id number]1 Social History Date Type Detail Facility Start: 05-18-2022 End: 12-29-2022 Tobacco smoking status NHIS Ex-smoker [facility] End: 07-17-2001 History of tobacco use Current smoker [facility] End: 07-17-2001 History of tobacco use Cigarette Smoker [facility] Start: 05-18-2022 End: 12-15-2022 Cigarettes smoked current (pack per day) - Reported 1 [facility] Start: 05-18-2022 End: 12-29-2022 Tobacco use and exposure Smokeless tobacco non-user [facility] Start: 05-18-2022 End: 12-15-2022 Alcohol intake Current drinker of alcohol (finding) [facility] Start: 1960 Sex Assigned At Not on file C [facility] Start: 05-08-2022 End: 05-18-2022 Exposure to SARS-CoV-2 (event) Not sure [facility] Tobacco Past, Cigarettes [facility] Tobacco smoking status No Smokin g Status Entered [facility] Start: 12-15-2022 End: 03-08-2023 Sex Assigned At Male [facility] Start: 1960 Sex Assigned At Male [facility] Start: 12-29-2022 End: 10-25-2023 Alcohol intake Ex-drinker (finding) [facility] Start: 12-29-2022 Alcohol Comment 5 drinks per w [place], sometimes more [facility] Adult Depression Screening Assessment 0 [facility] Medical Equipment Procedure Code Equipment Code Equipment Origin al Text Equipment Identifier Dates [employer] [employer] Absor[employer] Iol +21d [id number] Start: 01-11-2023 Comment on above: Description: -1.41 [place] [employer]v Absor[employer] Iol +20.5d [id number] Start: 03-08-2023 Comment on above: Description: -0.20 Functional Status Date Assessment Result Facility 03-13-2023 Functional Status N/A [facility] Clinical Notes 05-18-2022 to 01-23-2024 Addendum Note - Nicole Ryan, OD - 10/25/2023 3:14 PM EDTPatient Nicole Byrnes, OD - 10/25/2023 2:57 PM Nicole Bishop OD - 06/01/2023 2:00 PM EST Note Date & Type Note Facility 01-23-2024 Note Continue GDMT- ASA, toprol, crestor D/W Dr Sen regarding possible cardiac cath [facility] 01-23-2024 Note Hypertension is unch anged, boarderline labile with noted orthostatic changes Continue current medications. [facility] 01-23-2024 Note Worsening symptoms o f [...] . And he voiced understanding and agreement [facility] 01-23-2024 Note [facility]GR ESS [...] that he doesn't walk anymore. CAD, LAD DE treated by stenting (02/2015) and systolic heart [...] seen in follow up on CAD, LAD DE treated by stenting (02/2015) and systolic heart [...] Nose normal. Mouth/Thr (more content not included)... [facility] 01-23-2024 Note Patient here for 6 [...] All other systems reviewed and are negative. [facility] 01-23-2024 Note [facility] II-III currentl y euvolemic without exacerbation- he admits to not drinking enough fluid on a daily basis Continue GDMT- ASA, crestor, farxiga, aldactone and toprol Diuretic therapy- dc'd r/t hypotension/syncope Monitor daily weights, I&O, fluid restriction 1.5-2L/day, renal function and electrolytes- [facility] 10-25-2023 Note HNO ID: [id number] Author: NICOLE RYAN, MAYI Service: ? Author Type: PERSONAL CARER Type: Progress Notes Filed: 10/25/2023 15:09 Note Text: ASSESSMENT/PLAN: 1. Keratoconjunctivitis sicca of both eyes not specified as Sjogren's - ICD9: 370.33, ICD10: H16.223 (primary diagnosis) 2. 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 documented in this encounter [facility] 10-25-2023 History of Present illness Narrative ASSESSMENT/PLAN: 1. Keratoconjunctivitis sicca of both eyes not specified as Sjogren's - ICD9: 370.33, ICD10: H16.223 (primary diagnosis) 2. 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 Hi, Please schedule the following appointment. Patient: Darius Thacker Provider:Dr. Barber Snow Date: 10/02/2023 Time: 430 PM [facility] schedule Visit Type: Virtual (visualized on screen) Established Visit follow up Imaging needed prior to schedule: No Patient is aware: Yes Thank you! Alesha Marcos RN Forwarded to [facility] scheduling. Made a temporary hold on 10/01 at 430 PM for VV. It is on the [facility] schedule. documented in this encounter [facility] 06-27-2023 Note [place] [facility] Subjective Darius Thacker is a 63 y.o. [...] seen in follow up on CAD, LAD DE treated by stenting (02/2015) and systolic heart [...] at bedtime., Di (more content not included)... [facility] 06-01-2023 Note HNO ID: [id number] Author: Nicole Ryan OD Service: ? Author Type: PERSONAL CARER Type: Progress Notes Filed: 06/01/2023 2:27 PM [...] Ryan OD June 01, 2023 2:00 PM [facility] 06-01-2023 History of Present illness Narrative ASSESSMENT/PLAN: [...] 2023 2:00 PM documented in this encounter [facility] 05-19-2023 Note [place] [facility] Subjective Darius Thacker is a 63 y.o. [...] seen in follow up on CAD, LAD DE treated by stenting (02/2015) and systolic heart [...] at bedtime., Disp: (more content not included)... [facility] 04-20-2023 Note HNO ID: [id number] Author: Arturo Tejada, OD Service: ? Author Type: PERSONAL CARER Type: Progress Notes Filed: 04/20/2023 12:24 PM [...] Tejada, OD April 20, 2023 12:23 PM [facility] 04-12-2023 Note HNO ID: [id number] Author: Arturo Tejada, OD Service: ? 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 Arturo Doris Tejada, OD April 12, 2023 12:24 PM [facility] 03-13-2023 Note Chief Complaint Referral *Renal Cyst [...] In 1 year [facility] [address] , [place] [address]- [phone] Additional Instructions: Renal US Patient Education Renal [...] negative Immunizations Vaccine (more content not included)... [facility] Comment on above: Result Comment: Elec tronically Signed By: Francois PAYAN MD\.br\Date and Time Signed: 03/13/23 16:00 EDT\.br\Electronically Co-Signed By: Marci Rangel.br\Date and Time Co-Signed: 03/13/23 15:58 EDT 03-13-2023 [...] provider gives to you. In general: Take eahw-yts-ozyuzth and prescription medicines only as told by [...] provider. Document Revised: 12/28/2020 Document Reviewed: 12/28/2020 [employer] Patient Education 2022 [employer]. Follow Up Care 11/15/2022 12:05:11 With:ORA MILLER, Francois George, URL Address: [facility] [address], [place] [address]- [phone] When:Within 1 Year(s) Comments:Renal US [facility] 03-08-2023 Note HNO ID: [id number] Author: Beatriz Figueroa OD Service: ? Author Type: PERSONAL CARER Type: [place] Notes Filed: 03/08/2023 11:08 AM [...] Figueroa OD March 08, 2023 11:08 AM [facility] 03-08-2023 History of Present illness Narrative ASSESSMENT/PLAN: [...] 2023 11:08 AM documented in this encounter [facility] 01-13-2023 Miscellaneous Notes Patient states he [...] review and advise. documented in this encounter [facility] 12-29-2022 Note HNO ID: [id number] Author: SARTHAK Aguilar Service: ? Author Type: Disability Insurance Hearing Officer Type: [place] Notes Filed: 12/29/2022 2:09 PM Note Text: CONFIRM AIM INTERMEDIATE DISTANCE LEFT EYE. AIM -1.50 LEFT EYE. SARTHAK Aguilar [facility] 12-29-2022 History of Present illness Narrative CONFIRM AIM INTERMEDIATE DISTANCE LEFT EYE. AIM -1.50 LEFT EYE. SARTHAK Aguilar documented in this encounter [facility] 12-29-2022 Instructions Sheeba Webster APRN.SKEIN WASHER - 12/29/2022 1:50 PM EDT PATIENT PREOPERATIVE INSTRUCTIONS Sheree Schaffer V, MD has scheduled you for your procedure at this surgery center: [facility]: [phone] --[address] [facility] [place] [address]. Please read below carefully for your personalized [...] Procedures: - YOU MUST HAVE A RESPONSIBLE NUCLEAR PHYSICS PROFESSOR TAKE YOU HOME. A WATER SOFTENER INSTALLER OR OPERATIONS BOARDMAN CANNOT BE MADE A RESPONSIBLE NUCLEAR PHYSICS PROFESSOR. - We recommend that a responsible person [...] Advance Directive, please fax a copy to [phone] or email to for it to be [...] Sheeba Webster APRN.MAXIMILIAN documented in this encounter [facility] 12-29-2022 History and physical note HISTORY AND [...] (FLONASE) 50 mcg/actuation nasal spray Use 1 [place] in each nostril as needed. Yes No medication comments found. CURRENT ALLERGIES: ALLERGIES No Known Allergies COVID VACCINATION STATUS: Fully vaccinated REVIEW OF SYSTEMS: PAIN ASSESSMENT: General: No weight loss, malaise or fevers. Neuro: No history of TIA's, stroke, SCRAP MATERIALS BUYER tumor, impaired sensorium, hemiplegia, paraplegia or quadraplegia. No neurological symptoms or problems. Positive [place] bilateral hearing aids Respiratory: Positive for Tobacco [...] Generalized ischemic myocardial dysfunction Assessment: history of DE s/p PTCA in 2014 on ASA follows [...] TIME: 1:36 PM documented in this encounter [facility] 12-16-2022 Miscellaneous Notes Images from the original note were not included. Called and spoke to patient and scheduled pre op appointments for 12/29. I advised him that we will contact Dr Breen' office and set up the post op appointments (1 day and 1 week). Asked if it was okay that we send him a Schedule [employer] message with those appointments. He confirmed [employer] was okay. Add on 01/11 per - call to schedule Received: Yesterday [address] Opht Surg Watershed Manager CHART MADE AND FILED IN [facility] PATIENT SCHEDULED FOR SX OS ONLY 01/11/23 - ADD PER MYC OK: --NO CALL TO SCHEDULE PH #: VERIFIED SR/CASE MSG DONE: YES NOTES: POST OPS W/: DR STEFF Schaffer, V, MD P Ln Opht Surg Watershed Manager Left eye only Comanage with Dr Breen [...] and surgery - Comanage with Dr Breen; relinquish care POD #1 documented in this encounter [facility] 12-15-2022 Note HNO ID: [id number] Author: Sheree Schaffer V, MD Service: ? [...] and surgery - Comanage with Dr Breen; relinquish care POD #1 Cataract Presurgical Documentation Cataract: [...] patient was offered a surgery/procedure at a [facility] facility. The surgeon/proceduralist and patient have discussed [...] SCHAFFER MD December 15, 2022 12:36 PM [facility] 12-15-2022 Note HNO ID: [id number] Author: Beatriz Figueroa, MAYI Service: ? Author Type: PERSONAL CARER Type: [place] Notes Filed: 12/15/2022 1:15 PM [...] Figueroa, OD December 15, 2022 12:29 PM [facility] 12-15-2022 Miscellaneous Notes Addended by: MARINA SALGADO on: 12/15/2022 02:17 PM Modules accepted: Orders documented in this encounter [facility] 12-15-2022 History of Present illness Narrative The [...] and surgery - Comanage with Dr Breen; [facility] POD #1 Cataract Presurgical Documentation Cataract: [...] patient was offered a surgery/procedure at a [facility] facility. The surgeon/proceduralist and patient have discussed [...] 2022 12:29 PM documented in this encounter [facility] 10-31-2022 Note HNO ID: [id number] Author: Barber Snow, DO Service: ? Author Type: Physician Type: Progress Notes Filed: 11/05/2022 11:18 PM Note Text: [facility] [place] [facility] [place] [facility] - Medical Spine Established [...] Current Treatment: Medications None currently Therapies PT: [facility], Anders Baker PT, frances 05/30 - 09/16/22, [...] 81 mg OS (more content not included)... [facility] 10-31-2022 History of Present illness Narrative Images from the original note were not included. 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 (Patient not [...] MRI lumbar spine with and without contrast, [facility]: Comparison is made to the March 31, [...] his lateral recess. 09/24/2016 XR lumbosacral spine, [facility]: There is straightening of the normal lordotic [...] TIME: 4:13 PM documented in this encounter [facility] 10-11-2022 Miscellaneous Notes Tried to reach patient for post-injection phone call. Left office number for patient to call back. [employer] message/questionairre sent regarding post-injection. documented in this encounter [facility] 09-27-2022 Miscellaneous Notes Phoned patient and spoke with Jb to confirm appointment for Darius Thacker for spine procedure on 10/04/2022. Patient notified that [facility] will call patient the night before with the time to arrive for injection. Patient verbalized understanding of the following: -Provided education on spine procedure and answered questions related to spine injection procedure. -Patient notified effective 01/04/2021 asymptomatic adult patients, regardless of vaccination status, will no longer require COVID-19 testing before undergoing outpatient procedure -C D Still Operator is needed to drive patient home. -NPO [...] Antibiotics?: No Diabetic: No Patient given number [phone], spine injections schedulers, if there is any need to reschedule/ change appointment during normal business hours. Active MyChart users were informed to read EasyQasahart procedure instructions prior to appointment. AMBULATORY PATIENT [...] POST INJECTION INSTRUCTIONS documented in this encounter [facility] 08-10-2022 Miscellaneous Notes Radiology Service Progress Note [...] 2022 3:17 PM documented in this encounter [facility] 07-25-2022 History of Present illness Narrative Images from the original note were not included. 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 (Patient not [...] MRI lumbar spine with and without contrast, [facility]: Comparison is made to the March 31, [...] his lateral recess. 09/24/2016 XR lumbosacral spine, [facility]: There is straightening of the normal lordotic [...] TIME: 4:26 PM documented in this encounter [facility] 07-22-2022 Miscellaneous Notes Spoke to Em at [facility] she states needs Verbal permission from patient to be able to speak to and can discuss claim with her. Has told her this. It is an [place] procession issue. Called spouse advised her that she needs to have patient call Em and give her verbal permission she can then discuss claim with her. She verbalized understanding. Left message on voicemail for Em [facility] to call office back. Pt called, states they received a call from their insurance ([employer]) and the diagnosis code that we gave [...] [facility] is seeing, [facility] [phone] Please contact patient to advise of any details/further questions. Varinder Monet Pss documented in this encounter [facility] 05-18-2022 History of Present illness Narrative Images from the original note were not included. 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 desvenlafaxine ER [...] MRI lumbar spine with and without contrast, [facility]: Comparison is made to the March 31, [...] his lateral recess. 09/24/2016 XR lumbosacral spine, [facility]: There is straightening of the normal lordotic [...] for local options, will likely go to [facility]. -Activities and exercise as tolerated. 3) Pharmacological [...] TIME: 2:11 PM documented in this encounter [facility] Evaluation + Plan note No data available for this section [facility] Evaluation + Plan note Future Appointments Appointment Date:03/08/2024 09:45:00 AM Scheduled Provider:Francois PAYAN MD Location:[facility] Appointment Type:URO Office Visit Future Scheduled TestsUS Renal 03/13/23 [facility] Evaluation note Diagnosis Acute right-sided low back pain with right-sided sciatica- Primary Lumbosacral radiculitis Thoracic or lumbosacral neuritis or radiculitis, unspecified [facility] Diagnosis Chronic right-sided low back pain with right-sided sciatica- Primary Lumbosacral radiculitis Thoracic or lumbosacral neuritis or radiculitis, unspecified Radiculopathy of lumbar region Thoracic or lumbosacral neuritis or radiculitis, unspecified [facility] [place] [facility]No assessment information [facility] Work Phone: Evaluation note* Diagnosis Chronic right-sided low back pain with right-sided sciatica- Primary Radiculopathy of lumbar region Thoracic or lumbosacral neuritis or radiculitis, unspecified [facility] [place] [facility]* Diagnosis Combined forms of age-related cataract of both eyes- Primary Other and combined forms of senile cataract Myopia with astigmatism and presbyopia, bilateral Combined forms of age-related cataract of both eyes Other and combined forms of senile cataract [facility] [place] [facility]* Diagnosis Pre-op evaluation- Primary Preoperative examination, [...] of senile cataract [facility] [place] [facility]* Diagnosis Combined forms of age-related cataract of both eyes Other and combined forms of senile cataract Combined forms of age-related cataract of both eyes Other and combined forms of senile cataract [facility] [place] [facility]* Diagnosis S/P cataract extraction and insertion of intraocular lens, left- Primary [facility] [place] [facility]* Diagnosis Chronic right-sided low back pain with right-sided sciatica Radiculopathy of lumbar region Thoracic or lumbosacral neuritis or radiculitis, unspecified Bilateral posterior capsular opacification- Primary After-cataract, unspecified [facility] [place] [facility]* Diagnosis Left posterior capsular opacification- Primary After-cataract, unspecified Pseudophakia of both eyes Lens replaced by other means [facility] [place] [facility]* Diagnosis Keratoconjunctivitis sicca of both eyes not specified as Sjogren's- Primary Keratoconjunctivitis sicca, not specified as Sjogren's 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 of both eyes Pinguecula of left eye Pinguecula Pterygium, right Pseudophakia of both eyes Lens replaced by other means History of YAG laser capsulotomy of lens, left documented in this encounter [facility] Discharge instructions No data available for this section [facility] No data available for this section [facility] Summary Purpose Family History No Family [...] HIGH COMPLEX 45 MINS Barber Snow DO [address] [place] [address] [facility] [place] [address] [place] [address] Referral ID Status Reason Start Date Expiration Date Visits Requested Visits Authorized [id number] Pending Review Auto-Generat ed Referral 05/18/2022 05/18/2023 1 1 Specialty Diagnoses / Procedures Referred By Alise lugo Referred To Contact MR IMAGING Diagnoses Chronic right-sided low back pain with right-sided sciatica Radiculopathy of lumbar region Procedures MRI LUMBAR SPINE WO IVCON MRI SPINAL CANAL LUMBAR W/O CONTRAST MATERIAL Barber Snow DO [address] [place] [address] Mr Imaging Referral ID Status Reason Start Date Expiration Date V isits Requested Visits Authorized [id number] Closed Auto-Generate d Referral 07/25/2022 08/24/2022 1 1 Specialty Diagnoses / Procedures Referred By Alise lugo Referred To Contact MR IMAGING Diagnoses Chronic right-sided low back pain with right-sided sciatica Radiculopathy of lumbar region Procedures MRI LUMBAR SPINE WO IVCON MRI SPINAL CANAL LUMBAR W/O CONTRAST MATERIAL Barber Snow DO [address] [place] [address] Mr Imaging [place] [address] Chief Complaint and Reason for Visit Chief Complaint Brant only; back Additional Source Comments (unrecognized sect ion and content) No Status Records FoundNo Status Records FoundNo Status Records FoundNo Status Records FoundNo Status Records FoundNo Status Records FoundNo Status Records Found INFORMATION SOURCE (unrecogn ized section and content) DATE CREATED AUTHOR 10/23/2018 [facility] DATE CREATED AUTHOR AUTHOR'S ORGANIZ ATION 10/19/2022 [facility] DATE CREATED AUTHOR AUTHOR'S ORGANIZ ATION 11/12/2022 [facility] DATE CREATED AUTHOR AUTHOR'S ORGANIZ ATION 03/16/2023 [facility] DATE CREATED AUTHOR AUTHOR'S ORGANIZ ATION 10/26/2023 [facility] DATE CREATED AUTHOR AUTHOR'S ORGANIZ ATION 11/17/2023 [facility] dical [facility] DATE CREATED AUTHOR AUTHOR'S ORGANIZ ATION 02/22/2024 [facility] Source Comments (unrecognize d section and content) In the event this informatio n is protected by the Federal Confidentiality of Alcohol and Drug Abuse Patient Records regulations: The Federal rules restrict any use of the information to criminally investigate or prosecute any alcohol or drug abuse patient.[facility] the event this information is protected by the Federal Confidentiality of Alcohol and Drug Abuse Patient Records regulations: The Federal rules restrict any use of the information to criminally investigate or prosecute any alcohol or drug abuse patient.[facility] Hospital[facility] the event this information is protected by the Federal Confidentiality of Alcohol and Drug Abuse Patient Records regulations: The Federal rules restrict any use of the information to criminally investigate or prosecute any alcohol or drug abuse patient.[facility] HospitalIn the event this information is protected by the Federal Confidentiality of Alcohol and Drug Abuse Patient Records regulations: The Federal rules restrict any use of the information to criminally investigate or prosecute any alcohol or drug abuse patient.[facility] HospitalIn the event this information is protected by the Federal Confidentiality of Alcohol and Drug Abuse Patient Records regulations: The Federal rules restrict any use of the information to criminally investigate or prosecute any alcohol or drug abuse patient.[facility] HospitalIn the event this information is protected by the Federal Confidentiality of Alcohol and Drug Abuse Patient Records regulations: The Federal rules restrict any use of the information to criminally investigate or prosecute any alcohol or drug abuse patient.[facility] HospitalIn the event this information is protected by the Federal Confidentiality of Alcohol and Drug Abuse Patient Records regulations: The Federal rules restrict any use of the information to criminally investigate or prosecute any alcohol or drug abuse patient.[facility] HospitalIn the event this information is protected by the Federal Confidentiality of Alcohol and Drug Abuse Patient Records regulations: The Federal rules restrict any use of the information to criminally investigate or prosecute any alcohol or drug abuse patient.[facility] HospitalIn the event this information is protected by the Federal Confidentiality of Alcohol and Drug Abuse Patient Records regulations: The Federal rules restrict any use of the information to criminally investigate or prosecute any alcohol or drug abuse patient.[facility] HospitalIn the event this information is protected by the Federal Confidentiality of Alcohol and Drug Abuse Patient Records regulations: The Federal rules restrict any use of the information to criminally investigate or prosecute any alcohol or drug abuse patient.[facility] HospitalIn the event this information is protected by the Federal Confidentiality of Alcohol and Drug Abuse Patient Records regulations: The Federal rules restrict any use of the information to criminally investigate or prosecute any alcohol or drug abuse patient.[facility] HospitalIn the event this information is protected by the Federal Confidentiality of Alcohol and Drug Abuse Patient Records regulations: The Federal rules restrict any use of the information to criminally investigate or prosecute any alcohol or drug abuse patient.[facility] HospitalIn the event this information is protected by the Federal Confidentiality of Alcohol and Drug Abuse Patient Records regulations: The Federal rules restrict any use of the information to criminally investigate or prosecute any alcohol or drug abuse patient.[facility] HospitalIn the event this information is protected by the Federal Confidentiality of Alcohol and Drug Abuse Patient Records regulations: The Federal rules restrict any use of the information to criminally investigate or prosecute any alcohol or drug abuse patient.[facility] HospitalIn the event this information is protected by the Federal Confidentiality of Alcohol and Drug Abuse Patient Records regulations: The Federal rules restrict any use of the information to criminally investigate or prosecute any alcohol or drug abuse patient.[facility] HospitalIn the event this information is protected by the Federal Confidentiality of Alcohol and Drug Abuse Patient Records regulations: The Federal rules restrict any use of the information to criminally investigate or prosecute any alcohol or drug abuse patient.[facility] Reason for Visit (unrecogniz ed section and [...] Referred By Alise lugo Referred To Contact [facility] Diagnoses Combined forms of age-related cataract of both eyes Myopia with astigmatism and presbyopia, bilateral Procedures XCAPSL CTRC RMVL INSJ IO LENS PROSTH W/O ECP OPH BMTRY PRTL COHER INTRFRMTRY IO LENS PWR DELMIS PHACOEMULSIFICATION CATARACT IMPLANT INTRAOCULAR LENS W/O ENDOSCOPIC CYCLOPHOTOCOAGULATION OPHTHALMIC BIOMETRY BY PARTIAL COHERENCE INTERFEROMETRY W/INTRAOCULAR LENS POWER CALCULATION [facility] [address] [place] [address] Referral ID Status Reason Start Date Expiration Date Visits Re quested Visits Authorized [id number] 1 1 Specialty Diagnoses / Procedures Referred By Alise lugo Referred To Contact [facility] Diagnoses Chronic right-sided low back pain with right-sided sciatica Radiculopathy of lumbar region Procedures MRI LUMBAR SPINE WO IVCON MRI SPINAL CANAL LUMBAR W/O CONTRAST MATERIAL Barber Snow DO [address] [place] [id number] [place] [address] Referral ID Status Reason Start Date Expiration Date V isits Requested Visits Authorized [id number] Closed Auto-Generate d Referral 07/25/2022 08/24/2022 1 1 Reason Comments Posterior Capsule Opacification Evaluati on Reason Comments Foreign Body Sensation Care Teams (unrecognized sec tion and content) Rolled Materials Worker Relationship Specialty Start Date End Date Maria D Petersen PCP - General Family Medicine 02/14/14 Rolled Materials Worker Relationship Specialty Start Date End Date Maria D Petersen PCP - General Family Medicine 02/14/14 [employer] Materials Worker Relationship Specialty Start Date End Date Maria D Petersen PCP - General Family Medicine 02/14/14 Rolled Materials Worker Relationship Specialty Start Date End Date Maria D Petersen PCP - General Family Medicine 02/14/14 Rolled Materials Worker Relationship Specialty Start Date End Date Maria D Petersen PCP - General Family Medicine 02/14/14 Team Status: Active Member Role Status Dates Maria D Petersen PA-C Primary Care Provider Active Team Status: Inactive Member Role Status Dates Maria D Petersen PA-C Primary Care Provider Active Barber G Mendis Jr, DO Attending Provider Active [employer] Worker Relationship Specialty Start Date End Date Nicola Maria D Bernal PCP - General Family Medicine 02/14/14 Rol[employer] Worker Relationship Specialty Start Date End Date Maria D Petersen PCP - General Family Medicine 02/14/14 Rolled Materials Worker Relationship Specialty Start Date End Date Maria D Petersen PCP - General Family Medicine 02/14/14 Rolled Materials Worker Relationship Specialty Start Date End Date Maria D Petersen PCP - General Family Medicine 02/14/14 Rolled Materials Worker Relationship Specialty Start Date End Date Maria D Petersen PCP - General Family Medicine 02/14/14 Rolled Materials Worker Relationship Specialty Start Date End Date Maria D Petersen PA-C PCP - General Family Medicine 02/14/14 Rolled Materials Worker Relationship Specialty Start Date End Date Maria D Petersen PA-C PCP - General Family Medicine 02/14/14 Rolled Materials Worker Relationship Specialty Start Date End Date Maria D Petersen PA-C PCP - General Family Medicine 02/14/14 Rolled Materials Worker Relationship Specialty Start Date End Date Maria D Petersen PA-C PCP - General Family Medicine 02/14/14 Goals (unrecognized section and content) Goals [...] BE BASED ON THE PRIMARY CLINICAL RECORDS. [facility]. provides no warranty or guarantee of the accuracy or completeness of information in this document.
[2024-02-23 11:24] LABS: Basophils Absolute Auto 0.1 10^3/uL (0.0-0.1); Eosinophils Absolute Auto 0.3 10^3/uL (0.0-0.7); Eosinophils Percent Auto 5.5 % (0.9-7.0); Hematocrit 43.3 % (42.0-54.0); Immature Granulocytes Abs Auto 0.01 10^3/uL (0.00-0.03); Immature Granulocytes Pct Auto 0.2 % (0.0-0.5); Lymphocytes Percent Auto 33.9 % (20.5-60.0); Mean Corpuscular HGB Conc 34.6 g/dL (29.9-35.2); Mean Corpuscular Hemoglobin 32.9 pg (25.9-34.0); Mean Platelet Volume 8.6 fL (9.5-13.5); Monocytes Absolute Auto 0.8 10^3/uL (0.3-0.8); Monocytes Percent Auto 12.6 % (1.7-12.0); Neutrophils Absolute Auto 2.8 10^3/uL (1.4-6.5); Neutrophils Percent Auto 46.8 % (43.0-75.0); Platelet Count 301 10^3/uL (150-450); Red Blood Count 4.56 10^6/uL (4.70-6.10); Red Cell Distribution Width 11.3 % (11.0-15.0)
[2024-02-23 11:34] LABS: Anion Gap 15.5; BUN Creatinine Ratio 16.2; Calcium 9.4 mg/dL (8.5-10.1); Carbon Dioxide 24.9 mmol/L (21.0-32.0); Chloride 97 mmol/L (98-107); Estimated GFR (African America >60 (>=60); Estimated GFR (Non-African Ame >60 (>=60); Glucose 100 mg/dL (74-106); Potassium 4.4 mmol/L (3.5-5.1); Sodium 133 mmol/L (136-145)
== END 2024-02-23 10:07 | disposition home or self-care (01) ==
LOC: LAB 10:07
PROVIDERS: PCP Physician Assistant; Visit Provider Internal Medicine Interventional Cardiology
DX: I25.110 Atherosclerotic heart disease of native coronary artery with unstable angina pectoris (principal)
CPT/HCPCS: 36415; 80048; 85025

== ENCOUNTER 2025-06-05 10:59 | Outpatient (OUT) | payer BC, SELFPAY ==
--- OUTSIDE RECORDS SUMMARY | 2025-06-05 11:07 | XMS_ITS | Clinical Summary ---
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 Name Role Phone Maria D Wiggins MD Primary Care Provider [phone] Allergies No known active allergies Medications MedicationSigDispense QuantityRefillsLast FilledStart DateEnd DateStatus desvenlafaxine (Pristiq) 50 mg 24 hr tablet Take 1 tablet by mouth in the morning.Active gemfibrozil (Lopid) 600 mg tablet Indications:Mixed hyperlipidemiaTAKE 1 TABLET(600 MG) BY MOUTH IN THE MORNING AND AT BEDTIME 180 tablet 5Active gemfibrozil (Lopid) 600 mg tablet Indications:Coronary artery disease, unspecified vessel or lesion type, unspecified whether angina present, unspecified whether yomba shoshone or transplanted heartTake 1 tablet (600 mg) by mouth two times daily. 180 tablet 6Active lisinopril 10 mg tablet Indications:Heart failure with improved ejection fraction (HFimpEF) (CMS/HCC) Take 1 tablet (10 mg) by mouth once daily as directed. 90 tablet 5Active omeprazole (PriLOSEC) [address] capsule Indications:Coronary artery disease involving yomba shoshone coronary artery of yomba shoshone heart without angina pectorisTake 1 capsule (20 mg) by mouth two times daily. 180 capsule 5Active aspirin 81 mg chewable tablet Indications:Coronary artery disease involving yomb[place] shoshone coronary artery of yomb[place] shoshone heart without angina pectorisChew 1 tablet (81 mg) once daily as directed. 90 tablet 5Active dapagliflozin propanediol (Farxiga) 10 mg Indications:Heart failure with improved ejection fraction (HFimpEF) (CMS/HCC) Take 1 tablet (10 mg) by mouth once daily as directed. 90 tablet 6Active metoprolol succinate XL (Toprol-XL) 25 mg 24 hr tablet Indications:Coronary artery disease involving yomba shoshone coronary artery of yomb[place] shoshone heart without angina pectorisTake 1 tablet (25 mg) by mouth once daily as directed. Do not crush or chew. 90 tablet 6Active rosuvastatin (Crestor) 40 mg tablet Indications:Mixed hyperlipidemiaTake 1 tablet (40 mg) by mouth at bedtime. 90 tablet 5Active ezetimibe (Zetia) 10 mg tablet Indications:Mixed hyperlipidemiaTake 1 tablet (10 mg) by mouth once daily as directed. 90 tablet 5Active spironolactone (Aldactone) 25 mg tablet Indications:Heart failure with improved ejection fraction (HFimpEF) ([facility]) TAKE 1/2 TABLET(12.5 MG) BY MOUTH EVERY MORNING 45 tablet 5Active Active Problems ProblemNoted DateDiagnosed DateUnstable angina pectoris due to coronary vicjvrpoocwvywrj48/09/2024 Assessment & Plan (01/23/2024 12:24 PM EDT): Worsening symptoms of Unstable angina with known CAD s/p PCI Chest pain, STEWART, and near syncope despite adjustments of medications at recent appointments Will D/W Dr Sen- interventionalist, but provider d/w pt regarding cardiac cath to assess for any significant coronary stenosis, D/W pt risks of cardiac catheterization including but not limitedto: Bleeding/bruising, infection, blood clot or damage to a blood vessel, abnormal heart rhythm, chest pain, heart attack, sudden blockage or tear/damage to a coronary artery, kidney damage from contrast, allergic reaction to medications/ or contrast, stroke, . And he voiced understanding and agreement Chronic frontal ffvutjtra74/02/2024GERD (gastroesophageal reflux disease) rostate cancer Keratoconjunctivitis sicca of both eyes not specified as Sjogren'04/20/2023 05/19/2023Status post cataract loyhxjitgl18Superficial keratitis of right eye/hronic systolic heart failure / Overview (01/30/2023): Last Assessment & Plan: Assessment: Ischemic cardiomyopathy, LVEF 43% on MUGA scan 10/2018. Well compensated NYHA class I.. In the interim continue metoprolol succinate 50 mg and lisinopril 10 mg. He is also taking Lasix 20 mg every other day Follows cardiologyZaire APRN-CNP , last OV 11/22/2022. Compliant on medications. Appears euvolemic, denies new or worsening cardiac symptoms. Ejection Fraction: No results found Assessment & Plan (01/23/2024 12:28 PM EDT): [facility] II-III currently euvolemic without exacerbation- he admits to not drinking enough fluid on a daily basis Continue GDMT- ASA, crestor, farxiga, aldactone and toprol Diuretic therapy- dc'd r/t hypotension/syncope Monitor daily weights, I&O, fluid restriction 1.5-2L/day, renal function and electrolytes- Heart yluksvr4712/29/2022 Overview (01/23/2024): Last Assessment & Plan: Assessment: Ischemic cardiomyopathy, LVEF 43% on MUGA scan 10/2018. Well compensated NYHA class I.. In the interim continue metoprolol succinate 50 mg and lisinopril 10 mg. He is also taking Lasix 20 mg every other day Follows cardiologyZaire APRN-CNP , last OV 11/22/2022. Compliant on medications. Appears euvolemic, denies new or worsening cardiac symptoms. Essential (primary) ipvwicbmbdgn13 Overview (01/30/2023): Last Assessment & Plan: Assessment: Stable on medication BP today 115/75 To take medication morning of surgery Assessment & Plan (01/23/2024 12:24 PM EDT): Hypertension is unchanged, boarderline labile with noted orthostatic changes Continue current medications. Lumbosacral lmvbuasf09/21/2023Acute Q wave myocardial csmouseycs03/29/2022cute renal hixbebrmnu01/29/6677Uzgiig06/29/2022oronary ppionnqmqsgulhko46/29/2022 Assessment & Plan (01/23/2024 12:26 PM EDT): Continue GDMT- ASA, toprol, crestor D/W Dr Sen regarding possible cardiac cath Kimfwpdbghrhsz35/29/0317Bksgzih02/29/2022Edema of lower pgidhxuez22/29/2022 Elevated liver ejepnjp6606/14/2022Eruption due to drug06/14/2022Fracture, ankle 06/14/2022Generalized ischemic myocardial aypnvevynfd89/29/2022Kidney stones 2OSA (obstructive sleep apnea)06/14/2022 Overview (06/14/2022): CPAP Ljknyqovvpfrqx30/29/2022Lumbar transverse process bfmzgheg06/24/2015 Fbeayuegqfedyncflnxn43/02/2014 Encounters DateTypeDepartmentCare OuouOnwljfqvcbk89/27/2025Orders Only [address] [address] Rhianna Patel MA Well adult exam (Primary Dx)04/16/2025Ref[address] [id number] Kamari Sen MD Coronary artery disease, unspecified vessel or lesion type, unspecified whether angina present, unspecified whether yomba shoshone or transplanted heart; Heart failure with improved ejection fraction (HFimpEF) ([facility]); Coronary artery disease involving yomba shoshone coronary artery of yomba shoshone heart without angina pectoris; Mixed acxmfllpzhlwfx01/04/[address] [address] Kamari Sen MD Coronary artery disease involving yomba shoshone coronary artery of yomba shoshone heart without angina pectoris; Heart failure with improved ejection fraction (HFimpEF) ([facility]/H[facility]); Mixed hyperlipidemiafrom Last 3 Months Immunizations ImmunizationAdministration DatesNext DueInfluenza, injectable, quadrivalent 07/21/2016Influenza, injectable, quadrivalent, preservative free05/31/2022, 05/24/2018Moderna SARS-CoV-2 Wlouodslkfd79/15/2022neumococcal Conjugate PCV 20 06/21/2022Tdap08/01/2016Unspecified Sars-Cov-2 Firpwzhwjzp92/26/2021,11/12/2020, 10/19/2020Zoster, Gohapebonwo95/06/2022 Family History Medical HistoryRelationNameCommentsDiabetesFatherHeart attackFatherLeukemia MotherRelationNameStatusCommentsFatherMother Social History Tobacco UseTypesPacks/DayYears UsedDateSmoking Tobacco: NeverSmokeless Tobacco: Never Tobacco Cessation:Counseling Given: Not Answered Alcohol UseStandard Drinks/WeekCommentsYes0 (1 standard drink = 0.6 oz pure alcohol)moderateUT Safety & EnvironmentAnswerDate RecordedFear of Current or Ex-PartnerNot on file09/07/2023Emotionally AbusedNot on file09/07/2023hysically AbusedNot on file09/07/2023Sexually AbusedNot on file09/07/2023hysically or Sexually AbusedNot on file09/07/2023Sex and Gender InformationValueDate Recorded Sex Assigned at BirthNot on fileLegal ZtyIown4101/12/2022 11:33 PM EDTGender IdentityNot on fileSexual OrientationNot on file Last Filed Vital Signs Vital SignReadingTime TakenCommentsBlood Mrcvcnyd054/7806/05/2024 11:09 AM EST Okxhc317506/05/2024 11:09 AM ESTTemperature--Respiratory Kvys8563 11:45 AM EDTOxygen Krqbkojtni91%06/05/2024 11:09 AM ESTInhaled Oxygen Concentration-- Khzmak49.4 kg (197 lb)06/05/2024 11:09 AM RDFKunirn571.8 cm (5' 10 )06/05/2024 11:09 AM ESTBody Mass Index28.27108/05/2023 11:09 AM EST Plan of Treatment DateTypeDepartmentCare Team (Latest Contact Info)Mnrngjksiyr99/26/2025 1:00 PM ESTOffice Visit [facility] [address] [place] [address] Neida Booth, [employer]SULTANT [address] [place] [phone] Health MaintenanceDue DateLast DoneCommentsCT Qghecwrbictr1961FIT-DNA 1961FIT1961FOBT1961 3305Dhajcahckoqxa1961Depression Screening 1973COVID-19 Vaccine ( season), 05/11/2021, 05/11/2021, Additional history existsInfluenza Vaccine (#1)/03/2024, 06/24/2024, 05/31/2022, Additional history existsAdult Nvfcnfk7908/01/2026 08/01/20165830Ihguvrsviio62Colorectal Cancer Hiokopecr54/17/2027 Pneumococcal Vaccine: Pediatrics (0 to 5 Years) and At-Risk Patients (6 to 64 Years)Kwgqqtyyf99/06/2022Zoster AfcawsvyCuxodkcmv54/06/2023, 06/21/2022HIB VaccinesAged OutNo longer eligible based on patient's age to complete this topic HPV VaccinesAged OutNo longer eligible based on patient's age to complete this topicIPV VaccinesAged OutNo longer eligible based on patient's age to complete this topicMeningococcal B VaccineAged OutNo longer eligible based on patient's age to complete this topicMeningococcal VaccineAged OutNo longer eligible based on patient's age to complete this topicRotavirus VaccinesAged OutNo longer eligible based on patient's age to complete this topic Insurance Care Teams Team MemberRelationshipSpecialtyStart DateEnd Date Maria D Wiggins MD [address] [facility] PCP - Bxbvohf48/29/22
[2025-06-05 11:23] LABS: Hematocrit 44.8 % (42.0-54.0); Hemoglobin 15.3 g/dL (14.0-18.0); Immature Granulocytes Abs Auto 0.01 10^3/uL (0.00-0.03); Immature Granulocytes Pct Auto 0.2 % (0.0-0.5); Lymphocytes Absolute Auto 1.7 10^3/uL (1.2-3.8); Mean Corpuscular HGB Conc 34.2 g/dL (29.9-35.2); Mean Corpuscular Hemoglobin 32.8 pg (25.9-34.0); Mean Corpuscular Volume 96.1 fL (80.0-94.0); Platelet Count 237 10^3/uL (150-450); Red Blood Count 4.66 10^6/uL (4.70-6.10); White Blood Count 5.6 10^3/uL (4.0-11.0)
[2025-06-05 11:52] LABS: Alanine Aminotransferase 71 U/L (16-63); Albumin Globulin Ratio 1.3; Albumin Level 4.3 g/dL (3.4-5.0); Alkaline Phosphatase 51 U/L (46-116); Anion Gap 12.2; Aspartate Amino Transferase 63 U/L (15-37); Blood Urea Nitrogen 14.0 mg/dL (7.0-18.0); Calcium 8.7 mg/dL (8.5-10.1); Carbon Dioxide 29.0 mmol/L (21.0-32.0); Chloride 97 mmol/L (98-107); Cholesterol 164 mg/dL (<=200); Estimated GFR (African America >60 (>=60 mL/min/1.73m^2); Estimated GFR (Non-African Ame >60 (>=60 mL/min/1.73m^2); Globulin 3.2 g/dL; Glucose 113 mg/dL (74-106); HDL Cholesterol 67 mg/dL (40-60); Potassium 4.2 mmol/L (3.5-5.1); Sodium 134 mmol/L (136-145); Total Protein 7.5 g/dL (6.4-8.2); Triglycerides 204 mg/dL (<=150); VLDL CHOLESTEROL 40.8 mg/dL
--- OUTSIDE RECORDS SUMMARY | 2025-06-05 12:03 | XMS_ITS | CCD ---
Author Organization [facility] CliniSymn Care Team Providers Care Geospatial Technician Name Role Phone PHYSICIAN, DEFAULT Admitting Unavailable PHYSICIAN, DEFAULT Attending Unavailable PHYSICIAN, DEFAULT Admitting Unavailable PHYSICIAN, DEFAULT Attending Unavailable UNKNOWN, PROVIDER Admitting Unavailable UNKNOWN, PROVIDER Attending Unavailable MARIA D FLORES Referring Unavailable MOUNT CARMELMARIA D Primary Care Unavailable PHYSICIAN, DEFAULT Admitting Unavailable PHYSICIAN, DEFAULT Attending Unavailable Maria D Petersen Primary Care Provider Maria D Petersen Primary Care Provider Maria D PETERSEN Primary Care Physician CAMILA Petersen Primary Care Provider DO Barber Snow Jr Attending Provider [phone] Barber Snow Jr Attending Unavailable Barber Snow Jr Admitting Unavailable Maria D Petersen Primary Care Unavailable NORA OLIVA Attending Unavailable MARIA D PETERSEN Primary Care Unavailable NORA OLIVA Admitting Unavailable MARIA D PETERSEN Primary Care Unavailable NORA OLIVA Admitting Unavailable PJAIDENORA Consulting Unavailable NORA OLIVA Attending Unavailable Maria D Petersen PA-C Primary Care Provider Maria D Concepcion Primary Care Provider CAMILA SEN Attending Unavailable KATALINA NG Attending Unavailable CAMILA SEN Attending Unavailable CAMILA SEN Admitting Unavailable CAMILA SEN Referring Unavailable CAMILA SEN Attending Unavailable Maria D Petersen PA-C Primary Care Provider NICOLE RYAN Attending Unavaila MARIA D Robert Primary Care UnavailBARBER Parks Attending Unavailable MARIA D PETERSEN Primary Care UnavailAnders Cheek Primary Care Physician Unavail able Anders Jesus DO Primary Care Unavailable Laura Jain Attending Unavailable Laura Jain Admitting Unavailable Aliyah Basem GCailin Attending Unavailable Aliyah Basem GCailin Referring Unavailable Francois PAYAN Admitting Unavailable Francois PAYAN Attending Unavailable Francois PAYAN Referring Unavailable Anders Jesus Admitting Unavailable Anders Jesus Attending Unavailable Anders Jesus Attending Unavailable Anders Jesus Attending Unavailable Francois PAYAN Attending Unavailable Claudia Gonzalez MD Primary Care Provider Maria D Concepcion Unavailable ARTURO DODGE Referring Unavailable ECHO, ARTURO Thompson Referring Unavailable ECHO, ARTURO Thompson Attending Unavailable ARTURO DODGE Referring Unavailable KARLA LOZANO Attending Unavailable Willy Kim Admitting Unavailable Willy Kim Attending Unavailable DO Anders Jesus Admitting Unavailable DO Anders Jesus Attending Unavailable Willy Kim Attending Unavailable Allergies Allergy ClassificationReported Allergen(s)Allergy TypeDate of OnsetReaction(s) Facility (8 sources)atorvastatin; Translations: [ATORVASTATIN]Drug [id number] [facility]atorvastatinDrug Houvzni86-57-5533[facility] Medications Current Medications MedicationDrug Class(es)DatesSig (Normalized)Sig (Original)aspirin 81 mg chewable tablet (20 sources)Platelet Aggregation Inhibitor, Nonsteroidal Anti-inflammatory Drug Start: 05-05-2023 End: 32-04-1886iliwejs 81 MG chewable tablet Chew 81 mg in the morning. 05/05/2023 05/04/2024 ActiveStart: 41-32-1769uhss 1 tablet by mouth once daily aspirin, enteric coated (ASPIRIN, ENTERIC COATED) 81 mg EC tablet Take 81 mg by mouth once daily. 03/01/2017 ActiveStart: 27-55-0367mhuz 81 mg by mouth once dailyaspirin 81 mg, Oral, Daily, Refills(s) 0, Blood Thinner Start Date: 03/01/17 Status: Ordered Repeat number: 1Comment on above:Take 81 mg by mouth once daily.atorvastatin 80 mg oral tablet (5 sources)HMG-CoA Reductase Inhibitoratorvastatin (Lipitor) 80 MG tablet Active azithromycin 250 mg oral tablet (5 sources)Macrolide AntimicrobialStart: 70-31-3147ecyzelzluboz (Zithromax) 250 MG tablet Indications: Chronic frontal sinusitis Take 2 tabs PO x 1 day then 1 tab PO daily x 4 days 6 tablet 1 11/16/2023 Activebenoxinate hydrochloride 4 mg/ml / fluorescein sodium 3 mg/ml ophthalmic solution (2 sources)Diagnostic DyeStart: 06-01-2023 End: 20-16-6336msyrxjhmdcm-benoxinate 0.3-0.4 % 1 Drop (FLURESS)Start: 12-15-2022 End: 57-45-2227fcoimxecgnq-benoxinate 0.25-0.4 % 1 Drop (FLURESS)benzonatate 100 mg oral capsule (1 source)Non-narcotic AntitussiveStart: 03-06-2025 End: 76-94-2915upbe 1 capsule by mouth three times dailyTessalon 100 mg Cap 100 mg = 1 cap(s), Oral, TID, X 7 day(s), # 21 cap(s), Refills(s) 0, Pharmacy: [facility][id number], 178, cm, 03/06/25 9:36:00 EDT, Height/Length Dosing, 90, kg, 03/06/25 9:36:00 EDT, Weight Dosing Start Date: 03/06/25 Stop Date: 03/13/25 Status: Ordered Quantity: 21.0 Unit: cap(s) Repeat number: 1 Indications: Fever, unspecified; Cough, unspecified;ciprofloxacin 3 mg/ml / dexamethasone 1 mg/ml otic suspension (1 source)Corticosteroid, Quinolone AntimicrobialStart: 12-13-2024 End: 28-19-7238Phprysya 0.3%-0.1% Susp-Otic 4 drop(s), Otic, BID for 7 day(s), 7.5 mL, Refill(s) 0, [facility] #[id number], 178, cm, 12/13/24 9:37:00 EDT, Height/Length Dosing, 92.2, kg, 12/13/24 9:37:00 EDT, Weight Dosing Start Date: 12/13/24 Stop Date: 12/20/24 Status: Ordered Quantity: 7.5 Unit: mL Repeat number: 1 Indications: Unspecified otitis externa, unspecified ear;dapagliflozin 10 mg oral tablet (8 sources)Sodium-Glucose Cotransporter 2 InhibitorStart: 93-20-1223Hyzvjih 10 mg oral tablet 10 mg = 1 tab(s), Refills(s) 0 Start Date: 06/03/24 Status: Ordered Repeat number: 1Start: 03-16-2023 End: 69-61-2401hzsv 10 mg by mouth in the morningdapagliflozin (Farxiga) 10 MG Take 10 mg by mouth in the morning. 03/16/2023 Fpgzsk50 hr desvenlafaxine succinate 50 mg extended release oral tablet (14 sources)Serotonin and Norepinephrine Reuptake Inhibitortake 1 tablet by mouth every twenty-four hours in the morningdesvenlafaxine (Pristiq) 50 MG 24 hr tablet Take 1 tablet by mouth in the morning. Active End: 43-81-6617yqkf 1 tablet by mouth once daily, then take 1 tablet by mouth every twenty-four hoursdesvenlafaxine ER (PRISTIQ) 50 mg 24 hr tablet Take 50 mg by mouth once daily. 0 12/29/2022 Discontinued (Course of therapy completed) Comment on above:Take 50 mg by mouth once daily.dexamethasone 0.001 mg/mg / neomycin 0.0035 mg/mg / polymyxin b 10 unt/mg ophthalmic ointment (6 sources)Aminoglycoside Antibacterial, Polymyxin-class Antibacterial, CorticosteroidStart: 05-00-1592fpuauuwi/polymyxin b/dexametha(MAXITROL 3.5 MG/G- 10,000 UNIT/G-0.1 % EYE OINTMENT) Apply to lids/lashes Both eyes at bedtime until gone 3.5 g 10/25/2023 ActiveComment on above:Apply to lids/lashes Both eyes at bedtime until gonediazePAM 5 mg oral tablet (1 source)BenzodiazepineStart: 07-25-2022 End: 84-76-2574abluiXSU (VALIUM) 5 mg tablet Indications: Chronic right-sided low back pain with right-sided sciatica , Radiculopathy of lumbar region Take 1 tablet 1 hour before test. Can take 1 tablet 30 minutes before test if necessary. If still not comfortable then can take a half tablet immediately prior to or during the test. 3 tablet 0 07/25/2022 08/24/2022 ActiveComment on above:Take 1 tablet 1 hour before test. Can take 1 tablet 30 minutes before test if necessary. If still not comfortable then can take a half tablet immediately prior to or during the test.ezetimibe 10 mg oral tablet (11 sources)Dietary Cholesterol Absorption InhibitorStart: 59-75-1711fhfj 1 mg by mouth once dailyezetimibe 10 mg Tab mg tab(s), Oral, Daily, Refills(s) 0 Start Date: 12/13/24 Status: Ordered Repeatnumber: 1 End: 13-50-1704tahl 1 tablet by mouth once dailyezetimibe (ZETIA) 10 mg tablet Take 10 mg by mouth once daily. 0 12/29/2022 Discontinued (Course oftherapy completed)Comment on above:Take 10 mg by mouth once daily.Furosemide (20 sources)Loop DiureticStart: 96-20-5791YPTRSZBOWT 20 MG TABS FUROSEMIDE 20 MG TABS Start Date: 03/13/23 Status: OrderedStart: 32-30-3974pjtqereaec (LASIX ORAL) Take 20 mg by mouth. 03/01/2017 ActiveComment on above:Take 20 mg by mouth.gemfibrozil 600 mg oral tablet (20 sources)Peroxisome Proliferator Receptor alpha AgonistStart: 45-25-6461sfpm 600 mg by mouth twice dailygemfibrozil 600 mg, Oral, BID, Refills(s) 0, Blood glucose Start Date: 03/01/17 Status: Ordered Repeat number: 1Comment on above: Take 600 mg by mouth.lisinopril 10 mg oral tablet (20 sources)Angiotensin Converting Enzyme InhibitorStart: 28-98-8729edyt 10 mg by mouth once dailylisinopril 10 mg, Oral, Daily, Refills(s) 0, High blood pressure Start Date: 03/01/17 Status: Ordered Repeat number: 1Comment on above: Take 10 mg by mouth.24 hr metoprolol succinate 25 mg extended release oral tablet (20 sources)beta-Adrenergic BlockerStart: 81-42-6929jirl 1 tablet by mouth once dailymetoprolol succinate XL (Toprol-XL) 25 MG 24 hr tablet Take 25 mg by mouth Daily 06/11/2023 ActiveStart: 99-27-7420urvykfrkko succinate ER (TOPROL XL) 50 mg 24 hr tablet q 24 HR. 03/01/2017 ActiveStart: 56-24-2451knnz 1 tablet by mouth once dailyMetoprolol succinate 50 mg ER Tablet 50 mg, Oral, Daily, Refills(s) 0, High blood pressure Start Date: 03/01/17 Status: Ordered Repeat number: 1Comment on above:q 24 HR.omeprazole 20 mg delayed release oral capsule (20 sources)Proton Pump InhibitorStart: 93-52-7954vabdpkpkkp (PriLOSEC) [address] capsule Take 40 mg by mouth 05/05/2023 ActiveStart: 92-15-6852Mbmrdknr 20 mg, Oral, BID, Refills(s) 0, Control of stomach acid Start Date: 03/01/17 Status: Ordered Repeat number: 1Start: 03-01-2017 End: 72-77-1596uagk 20 mg by mouth twice dailyPrilosec 20 mg, Oral, BID, Refills(s) 0, Control of stomach acid Start Date: 03/01/17 Status: OrderedComment on above:Take 20 mg by mouth twice daily.omeprazole 20 mg capsule,delayed release TAKE 2 CAPSULES BY MOUTH EVERY DAYphenylephrine hydrochloride 25 mg/ml ophthalmic solution (2 sources)alpha-1 Adrenergic AgonistStart: 06-01-2023 End: 92-92-7078TEMGRIhlfdood 2.5 % 1 Drop (AK-DILATE, CODEY-SYNEPHRINE)Start: 12-15-2022 End: 83-26-7360DMTCUVwowvjkj 2.5 % 1 Drop (AK-DILATE, CODEY-SYNEPHRINE) rosuvastatin calcium 40 mg oral tablet (20 sources)HMG-CoA Reductase InhibitorStart: 49-48-4977gswu 1 tablet by mouth at bedtimerosuvastatin (Crestor) 40 MG tablet Take 40 mg by mouth at bedtime 05/05/2023 ActiveStart: 73-05-0910awee 20 mg by mouth once dailyrosuvastatin 20 mg, Oral, Daily, Refills(s) 0, High cholesterol Start Date: 03/01/17 Status: OrderedRepeat number: 1Comment on above:Take 40 mg by mouth once daily. sildenafil 20 mg oral tablet (5 sources)Phosphodiesterase 5 Inhibitorsildenafil (Revatio) 20 MG tablet Active take 3 tablets by mouth every hour as neededsildenafil (Revatio) 20 MG tablet Take 3 tablets by mouth one hour prior to sex as needed. Activespironolactone 25 mg oral tablet (20 sources)Aldosterone AntagonistStart: 30-48-4266belzmqijohivqi 25 mg Tab Refills(s) 0 Start Date: 03/13/23 Status: Ordered Repeat number: 1Start: 03-13-2023 End: 56-41-3927wffpdbiwjxmxpz (Aldactone) 25 MG tablet Take 12.5 mg by mouth in the morning. 03/13/2023 ActiveStart: 60-79-5634bowqadzowjmszq (ALDACTONE) 12.5 mg tab 01/30/2023 ActiveStart: 67-99-0264fuoiqlwanquuou (ALDACTONE) 12.5 mg tab tropicamide 10 mg/ml ophthalmic solution (2 sources)AnticholinergicStart: 06-01-2023 End: 81-86-6397mfjsojifnfh 1 % 1 Drop (MYDRIACYL)Start: 12-15-2022 End: 30-15-1247mdruogpjzns 1 % 1 Drop (MYDRIACYL) Completed/Discontinued Medications MedicationDrug Class(es)DatesSig (Normalized)Sig (Original)acetaminophen 325 mg / HYDROcodone bitartrate 5 mg oral tablet (9 sources)Opioid Agonist End: 50-41-1257lest 1 tablet by mouth every six hours as neededHYDROcodone- acetaminophen (NORCO) 5-325 mg per tablet Take 1 tablet by mouth every 6 hours as needed. 0 12/29/2022 Discontinued (Course of therapy completed)Comment on above:Take 1 tablet by mouth every 6 hours as needed.aspirin 1000 mg / caffeine 150 mg oral powder (9 sources)Platelet Aggregation Inhibitor, Nonsteroidal Anti-inflammatory Drug, Central Nervous System Stimulant, MethylxanthineStart: 03-01-2017 End: 27-36-3971moambsw-caffeine 1,000-150 mg pwpk Take 81 mg by mouth. 0 03/01/2017 12/29/2022 Discontinued (Course of therapy completed)Comment on above:Take 81 mg by mouth.betamethasone 3 mg/ml / betamethasone acetate 3 mg/ml injectable suspension (8 sources)CorticosteroidStart: 11-28-2024 End: 21-71-4292bwhwmgybebcgt acetate-betamethasone sodium phosphate (Celestone) injection 6 mgStart: 11-28-2024 End: mg, Intra-articular, Once PRN Procedure, Starting on Ria 11/28/24 at 1600, For 1 dosecyclobenzaprine hydrochloride 10 mg oral tablet (9 sources)Muscle Relaxant End: 56-80-9172qvhv 1 tablet by mouth every eight hours as neededcyclobenzaprine (FLEXERIL) 10 mg tablet Take 10 mg by mouth three times daily as needed. 0 12/29/2022 Discontinued (Course of therapy completed)Comment on above:Take 10 mg by mouth three times daily as needed.fluticasone propionate 0.05 mg/actuat metered dose nasal spray (11 sources)Corticosteroidfluticasone (FLONASE) 50 mcg/actuation nasal spray Use 1 [place] in each nostril as needed. 0 ActiveComment on above:Use 1 [place] in each nostril as needed.gabapentin 300 mg oral capsule (8 sources)Anti-epileptic AgentStart: 05-18-2022 End: 65-45-1616abilmymony (NEURONTIN) 300 mg capsule Indications: Acute right- sided low back pain with right-sidedsciatica , Lumbosacral radiculitis Take one capsule at bedtime for 3-5 days, then one in the morning and one at night for 3- 5 days. Then increase to one capsule three times daily if tolerating well. 90 capsule 1 05/18/2022 12/29/2022 Discontinued (Course of therapy completed) Comment on above:Take one capsule at bedtime for 3-5 days, then one in the morning and one at night for 3-5 days. Then increase to one capsule three times daily if tolerating well.ketorolac tromethamine 5 mg/ml ophthalmic solution (4 sources)Nonsteroidal Anti-inflammatory Drug, Cyclooxygenase InhibitorStart: 27-30-4322vgMFGryfh (ACULAR) 0.5 % ophthalmic solution USE DIRECTED BY PHYSICIAN, IN OPERATIVE EYE, BEGINNING ONE DAY AFTER SURGERY 5 mL 0 03/07/2023 ActiveStart: 63-47-6457suIOQupmz (ACULAR) 0.5 % ophthalmic solution 1 drop in the operative eye 4 times daily for 10 days after surgery, then taper as directed. 5 mL 0 01/13/2023 ActiveStart: 01-10-2023 End: 48-83-6236trGPRzvkk (ACULAR) 0.5 % ophthalmic solution USE DIRECTED BY PHYSICIAN, IN OPERATIVE EYE, BEGINNING ONE DAY AFTER SURGERY 5 mL 0 01/10/2023 01/13/2023 DiscontinuedComment on above:1 drop in the operative eye 4 times daily for 10 days after surgery, then taper as directed.USE DIRECTED BY PHYSICIAN, IN OPERATIVE EYE, BEGINNING ONE DAY AFTER SURGERYmethylPREDNISolone (9 sources)CorticosteroidStart: 05-18-2022 End: 90-89-3816csmkmpCNNSQDKfxbih (MEDROL DOSE-PACK) 4 mg Dose-Pack Indications: Acute right-sided low back pain with right-sided sciatica , Lumbosacral radiculitis As Instructed per package 21 tablet 0 05/18/2022 12/29/2022 Discontinued (Course of therapy completed)Start: 79-85-1596lqazewTOVWMOIztrjo (MEDROL DOSE-PACK) 4 mg Dose-Pack Indications: Acute right-sided low back pain with right-sided sciatica , Lumbosacral radiculitis As Instructed per package 21 tablet 0 05/18/2022 ActiveComment on above:As Instructed per package prednisoLONE acetate 10 mg/ml ophthalmic suspension (4 sources)CorticosteroidStart: 69-74-2748tglogksoBTRQ acetate (PRED FORTE) 1 % ophthalmic suspension USE DIRECTED BY PHYSICIAN, IN OPERATIVE EYE, BEGINNING ONE DAY AFTER SURGERY 5 mL 0 03/07/2023 ActiveStart: 91-03-3232jpgprbtfHSIF acetate (PRED FORTE) 1 % ophthalmic suspension 1 drop in the operative eye 4 times daily for 10 days after surgery, then taper as directed. 5 mL 0 01/13/2023 ActiveStart: 01-10-2023 End: 27-83-5509wxoqwdfzQDTO acetate (PRED FORTE) 1 % ophthalmic suspension USE DIRECTED BY PHYSICIAN, IN OPERATIVE EYE, BEGINNING ONE DAY AFTER SURGERY 5 mL 0 01/10/2023 01/13/2023 DiscontinuedComment on above:1 drop in the operative eye 4 times daily for 10 days after surgery, then taper as directed.USE DIRECTED BY PHYSICIAN, IN OPERATIVE EYE, BEGINNING ONE DAY AFTER SURGERY Problems Active Problems Problem ClassificationProblemDateDocumented DateEpisodic/Chronic Administrative/social admission (1 source)Patient encounter status; Translations: [Persons encountering health services in other specified circumstances]Onset: 30-19-9714DoerizqtXntpnnm disorders (7 sources)Eslrvri40-07-0933RhukexdCnixoo (20 sources)Asthma; Translations: [Unspecified asthma, uncomplicated]11-07-2014 ChronicBlindness and vision defects (1 source)Bilateral myopia of eyes; Translations: [Myopia, bilateral]Episodic Calculus of urinary tract (20 sources)Kidney stone; Translations: [Calculus of kidney]16-54-7907Zdbygzei Cataract (7 sources)Bilateral senile combined form cataracts of eyes; Translations: [Combined forms of age-related cataract, bilateral]Onset: 26-58-8563Uivldzw Congestive heart failure; nonhypertensive (20 sources)Heart failure; Translations: [Chronic systolic (congestive) heart failure]Onset: 17-78-6710QgrkoocIxharzch atherosclerosis and other heart disease (20 sources)Atherosclerotic heart disease of [place] coronary artery without angina pectoris; Translations: [Generalized ischemic myocardial dysfunction] Onset: 67-94-0701TkzgutaQjqejgueq of lipid metabolism (20 sources)Hyperlipidemia; Translations: [Hyperlipidemia, unspecified]Onset: 491544-69-0173WtldzkeJnkvqsiyxojsfk and diverticulitis (20 sources)Diverticular disease; Translations: [Diverticulosis of intestine, part unspecified, without perforation or abscess without bleeding]11-07-2014 ChronicEsophageal disorders (6 sources)Gastroesophageal reflux -63-4938HfebrkrTmlsvrwhg hypertension (20 sources)Essential hypertension; Translations: [Essential (primary) hypertension]Onset: 42-45-8369ChqfbkyPfdsn of unknown origin (1 source)Fever; Translations: [Fever, unspecified]Onset: 93-40-7225Ignncycl Fracture of lower limb (20 sources)Fracture of ankle; Translations: [Other fracture of unspecified lower leg, initial encounter for closed fracture]16-89-0547UithvyczAihxwmtewhyj with complications and secondary hypertension (1 source)Hypertensive heart disease with heart failure; Translations: [HYPERTENSIVE HEART DISEASE WITH HEARTFAILURE]Onset: 92-54-3010Csheyor Inflammation; infection of eye (except that caused by tuberculosis or sexually transmitteddisease) (9 sources)Keratoconjunctivitis sicca; Translations: [Keratoconjunctivitis sicca, not specified as Sjogren's, bilateral]Onset: hronic Inflammation; infection of eye (except that caused by tuberculosis or sexually transmitteddisease) (10 sources)Superficial keratitis of right eye; Translations: [Unspecified superficial keratitis, right eye]Onset: 877715-77-7911Mpfqrqxt Osteoarthritis (20 sources)Osteoarthritis; Translations: [Unspecified osteoarthritis, unspecified site]81-39-5952VubodhxTmhow diseases of kidney and ureters (3 sources)Acquired renal cyst without neoplastic change; Translations: [Cyst of kidney, acquired]Onset: 47-77-8536YwgvipugZpahj diseases of kidney and ureters (6 sources)Cyst of ygxijd64-79-7265JfuysslbXbltl ear and sense organ disorders (1 source)Sensorineural hearing loss; Translations: [Sensorineural hearing loss, bilateral]Onset: 87-55-3823BsbsbelLgrnj ear and sense organ disorders (2 sources)Sensorineural hearing loss, dsdanxing27-03-7955RhjlqwqHzlmo ear and sense organ disorders (1 source)External hearing aid in situ; Translations: [Presence of external hearing-aid]Onset: 53-15-2674XswyaoaaYvnge ear and sense organ disorders (2 sources)Does use hearing eye disorders (1 source)H/O: L cataract extraction; Translations: [Cataract extraction status, left eye]85-77-2409XwxvvdsdMapja eye disorders (1 source)Meibomian gland dysfunction of bilateral eyes; Translations: [Meibomian gland dysfunction right eye, upper and lower eyelids]10-25-2023 EpisodicOther eye disorders (1 source)Pinguecula of left eye; Translations: [Pinguecula, left eye]10-25-2023 EpisodicOther eye disorders (1 source)Pterygium of right eye; Translations: [Unspecified pterygium of right eye]54-50-3019TzigeqtbQvdnj eye disorders (1 source)History of hpswvkq-dgaadrpv-rtrpsl (YAG) laser capsulotomy of lens; Translations: [Cataract extraction status, left eye]15-51-8220DisuolwiXtcrb eye disorders (2 sources)Dry eyes; Translations: [Dry eye syndrome of bilateral lacrimal glands]Onset: 969919-83-7403PzqkrvjhWiyjw liver diseases (20 sources)Elevated liver enzymes level; Translations: [Abnormal levels of other serum enzymes]00-02-4689PabwjhqmJxbsy lower respiratory disease (1 source)Cough; Translations: [Cough, unspecified]Onset: 84-50-3319Tbctbihw Other non-traumatic joint disorders (2 sources)Shoulder pain; Translations: [Pain in right shoulder]11-28-2024 EpisodicOther nutritional; endocrine; and metabolic disorders (1 source)Overweight in adulthood with body mass index of 25 or more but less than 30; Translations: [Body mass index (BMI) 29.0-29.9, adult]Onset: 12-13-2024 EpisodicOther screening for suspected conditions (not mental disorders or infectious disease) (3 sources)Abnormal findings on diagnostic imaging of heart and coronary circulation; Translations: [Encounterfor screening for malignant neoplasm of prostate]Onset: 23-90-8626BewpdiiwRyxmo upper respiratory infections (5 sources)Chronic frontal sinusitis; Translations: [Chronic frontal sinusitis] Onset: 390667-93-2908MshpuchAcdlh upper respiratory infections (1 source)Acute upper respiratory infection; Translations: [Acute upper respiratory infection, unspecified]Onset: 09-76-5273QescjlcyXwnkjjwr codes; unclassified (20 sources)Obstructive sleep apnea syndrome; Translations: [Obstructive sleep apnea (adult) (pediatric)]Onset: 135649-64-8662NjenfhxFylolpetlbrf (1 source)DXOnset: 15-02-1207Qidvgmjmbxgm (6 sources)Patient encounter yrzrai58-74-8567Ftzvjqfluxrm (2 sources)First encounter by dsamrao67-86-5005 Past or Other Problems Problem ClassificationProblemDateDocumented DateEpisodic/ChronicCoronary atherosclerosis and other heart disease (2 sources)Presence of coronary angioplasty implant and graft; Translations: [Presence of coronary angioplastyimplant and graft]Onset: 87-20-8238Vjrdgzsu Other fractures (20 sources)Fracture of transverse process of lumbar vertebra; Translations: [Unspecified fracture of unspecified lumbar vertebra, initial encounter for closed fracture]Onset: 353392-44-5646SmedgxslHnuacdrhcxa; intervertebral disc disorders; other back problems (20 sources)Acute back pain with sciatica; Translations: [Lumbago with sciatica, right side]Onset: 89-09-1463LpesjoueKekkyfv (2 sources)Syncope and collapse; Translations: [Syncope and collapse]Onset: 93-78-8868IgvbxunsGymlimiuwngd (7 sources)Uvtkusnekwe76-47-2716 Results Test NameValueInterpretationReference RangeFacilityAmbulatory Visit Summaryon 41-69-9369Idllpatqzx Visit SummaryAmbulatory Visit Summary DARIUS THACKER :1960 Visit Date:03/06/2025 Ambulatory Visit Instructions Your Diagnosis Viral URI with cough Cough Fever Your Care Team Attending Physician - Willy Kim PA-C Primary Care Physician - Anders Jesus DO This Is Your Medications List benzonatate (Tessalon 100 mg Cap) Contact prescribing physician if questions or concerns aspirin dapagliflozin (Farxiga 10 mg oral tablet) ezetimibe (ezetimibe 10 mg Tab) gemfibrozil lisinopril metoprolol (Metoprolol succinate 50 mg ER Tablet) omeprazole (Prilosec) rosuvastatin spironolactone (spironolactone 25 mg Tab) Procedures Performed Back, Cataracts, Insertion of coronary artery stent. Discharge Vitals Temperature (Oral) 37.4 ???C Heart Rate (Peripheral) 90 Respiratory Rate 16 Blood Pressure 110/66 Height 178 cm Height 70 in Weight 90 kg Weight 198.416 lb BMI 28.41 What to do next Scheduled Follow-Up Appointments Monday2025 1:00 PM EDT With: Anders Jesus DO Where: [facility] [place] [address] [place] [address]- You Need to Schedule the Following Appointments Follow Up with Anders Jesus DO, [facility], PED When: Where: [address] [place] [address] Medications What How Much When Why Instructions New benzonatate (Tessalon 100 mg Cap) 1 Capsules By Mouth 3 times a day Cough Fever Duration: 7 Days Pickup at [facility] #[id number] Unchanged aspirin 81 Milligram By Mouth Every day Contact prescribing physician if questions or concerns Unchanged dapagliflozin (Farxiga 10 mg oral tablet) 1 Tablets Contact prescribing physician if questions or concerns Unchanged ezetimibe (ezetimibe 10 mg Tab) By Mouth Every day Contact prescribing physician if questions or concerns Unchanged gemfibrozil 600 Milligram By Mouth 2 times a day Contact prescribing physician if questions or concerns Unchanged lisinopril 10 Milligram By Mouth Every day Contact prescribing physician if questions or concerns Unchanged metoprolol (Metoprolol succinate 50 mg ER Tablet) 50 Milligram By Mouth Every day Contactprescribing physician if questions or concerns Unchanged omeprazole (Prilosec) 20 Milligram By Mouth 2 times a day Contact prescribing physician if questions or concerns Unchanged rosuvastatin 20 Milligram By Mouth Every day Contact prescribing physician if questions or concerns Unchanged spironolactone (spironolactone 25 mg Tab) Contact prescribing physician if questions or concerns Pharmacy Information [facility] #09053: [address] [place], [place] [phone] Allergies No Known Allergies Problems Ongoing - Any problem that you are currently receiving treatment for. CAD (coronary artery disease) Chronic stable angina Establishing care with new doctor, encounter for GERD (gastroesophageal reflux disease) History of placement of stent in LAD coronary artery Hypercholesterolemia Hypertension JOSE (obstructive sleep apnea) Prostate cancer screening Renal cyst Sensorineural hearing loss (SNHL), bilateral Wears hearing aid Historical - Any problem that you are no longer receiving treatment for. Anxiety Cholesterol Patient Survey You may receive a survey via text or e-mail asking about your office visit. Please share your experience with us by completing your survey. We appreciate your feedback and thank you for choosing us for your care. Education Materials Upper Respiratory Infection, Adult An upper respiratory infection (URI) is a common viral infection of the nose, throat, and upper airpassages that lead to the lungs. The most common type of URI is the common cold. URIs usually get better on their own, without medical treatment. What are the causes? A URI is caused by a virus. You may catch a virus by: ??? Breathing in droplets from an infected person's cough or sneeze. ??? Touching something that has been exposed to the virus (is contaminated) and then touching your mouth, nose, or eyes. What increases the risk? You are more likely to get a URI if: ??? You are very young or very old. ??? You have close contact with others, such as at work, school, or a health care facility. ??? You smoke. ??? You have long-term (chronic) heart or lung disease. ??? You have a weakened disease-fighting system (immune system). ??? You have nasal allergies or asthma. ??? You are experiencing a lot of stress. ??? You have poor nutrition. What are the signs or symptoms? A URI usually involves some of the following symptoms: ??? Runny or stuffy (congested) nose. ??? Cough. ??? Sneezing. ??? Sore throat. ??? Headache. ??? Fatigue. ??? Fever. ??? Loss of appetite. ??? Pain in your forehead, behind your eyes, and over your cheekbones (sinus pain). ??? Muscle aches. ??? (more content not included)...[facility] Office/Clinic Noteon [id number] Medicine Office/Clinic NoteFasouthwood community hospital Medicine Office/Clinic Note Chief Complaint cough, fever, bodyaches HPI Staff 64 year old male presents with fever, productive cough, itchy throat, body aches, headache. Onset- 3 days OTC- Advil, last dose this morning. History of Present Illness I have reviewed and verified the staff HPI to be accurate for this encounter. Portions of this record have been created with voice recognition software. Occasional wrong-word or???[id number]-[id number]??? substitutions may have occurred due to the inherent limitations of voice recognition software. 64 yo male with history of coronary artery disease, chronic stable angina, GERD, history of stent placement, high cholesterol, hypertension, sleep apnea, anxiety presents today with cc of fever productive cough scratchy throat body aches headache onset x 3 days ago. Patient states on Monday evening his did check his temp in which it was 102 states last night before going to bed he did have a temp of 101. Denies any recent travel denies any recent sick contacts that he is aware of. States cough congestion and scratchy throat. States cough is occasionally productive of phlegm or mucus. Denies wheezing chest pain shortness of breath or difficulty breathing with coughing. He denies any history of asthma or COPD. Denies smoking history. States maybe a little bit of left- sided ear discomfort but denies any drainage does wear bilateral hearing aids. States nasal congestion postnasal drip. States he did use some [id number] Nasacort has also been using [id number]-[id number] Delsym with some improvement of symptoms. He denies any known exposures to COVID-19 influenza or strep. Denies any loss of sense of taste or smell. He has no other concerns at this time. Review of Systems PHQ Score Initial Depression Screen Score: 0 SCORE ROS negative unless otherwise stated in HPI. Physical Exam Vitals & Measurements T: 37.4 ???C(Oral) HR: 90(Peripheral) RR: 16 BP: 110/66 SpO2: 96% HT: 70 in HT: 178 cm WT: 198.416 lb WT: 90 kg BMI: 28.41 General:Well developed, well nourished, in no acute distress present with today, no acute distress sitting upright on the exam table Eyes:Bilateral conjunctiva wnl, no injection Ears: Patient has clear fluid behind bilateral TMs consistent with ear effusion no erythema bulgingor concern for otitis media. Bilateral external auditory canals within normal limits no erythema oredema. Stating does wear hearing aids bilaterally. Nose:mild nasal mucosa inflammation and edema no active drainage deformities or lesions Mouth: Moist mucous membranes. Uvula is midline. Bilateral tonsillar erythema without acute edema or exudate. No signs of peritonsillar abscess. No trismus or drooling. Neck:no adenopathy Lungs:Lung sounds are clear bilaterally. No wheezing, rhonchi, or crackles on exam. Symmetrical expansion. No signs of respiratory distress. Cardio:S1, S2, regular rhythm. No murmurs, gallops, or rubs. Abdomen:not assessed Musculoskeletal:not assessed Extremity:not assessed Neurologic:not assessed Skin:not assessed Mental Status:Alert and oriented x3. Normal mood and affect Assessment/Plan Patient declines rapid COVID-19 and influenza testing in office. Is comfortable with chest x-ray given 3-day duration of fever with cough being his main complaint today. Discussed that chest x-ray isnegative symptoms are most likely viral in nature to continue Tylenol or ibuprofen as needed for fever chills body aches. In regards to cough there is no wheezing on exam would like to hold off in regards to prednisone or albuterol at this time discussed Tessalon 1 every 8 hours as needed as patient does have history of high blood pressure otherwise discussed Delsym susx-orv-koipvzb is okay to continue as well as the Nasacort if needed. Patient and both agree and understand plan. IMPRESSION: NO RADIOGRAPHIC EVIDENCE OF ACUTE INTRATHORACIC PROCESS. Chest x-ray is negative for any acute cardiopulmonary abnormalities. I updated the patient and wifein regards to his negative result. Discussed that patient's symptoms are most likely viral in nature to continue fluids rest supportive management Tylenol ibuprofen as needed for fever chills will send cough suppressant to the pharmacy for the patient patient should otherwise follow very closely with his PCP to ensure improvement and resolution of symptoms otherwise to return if needed. ER for reevaluation if develops any chest pain shortness of breath or difficulty breathing and with the patient and agree and understand plan. 1. Viral URI with cough (J06.9: Acute upper respiratory infection, unspecified) Discussed exam and hx are consistent with viral illness. Advised of typical duration. Discussed antibiotics unfortunately do not treat viral illnesses, it will take time to run course- usually 7-14 days. Fluids/rest encouraged, PRN tylenol/ibuprofen for any pain. May use tessalon for symptomatic tx. Follow up with PCP if not improving over next 5- (more content not included)...Normal [facility] HospitalComment on above:Result Comment: Electronically Signed By: Julio JENSEN, Willy Hurtado\.br\Date and Time Signed: 03/06/2510:12 EDTXR Chest 2 Viewson [id number] Chest 2 ViewsExam Date/Time: 03/06/2025 09:55 EDT Reason for Exam: cough and fever x 3 days duration;Cough Report IMPRESSION: NO RADIOGRAPHIC EVIDENCE OF ACUTE INTRATHORACIC PROCESS. EXAMINATION: XR Chest 2 Views HISTORY: Cough TECHNIQUE: Frontal and lateral views of the chest. COMPARISON: 03/06/2025 FINDINGS: Cardiomediastinal silhouette is within normal limits. Coronary artery stent noted. No pneumothorax, pleural effusion, or consolidation. No acute osseous abnormality. Ordering Provider: Willy Kim FINAL REPORT Dictated: 03/06/2025 9:58 am Anders Perez DO Signed (Electronic Signature): 03/06/2025 9:58 am Signed by: Anders Perez DO Transcribed by: JESSICA Technologist: SHR[facility]ALS FOR CHILDRENAbiodunAultman Orrville HospitalCoding Summaryon [id number] SummaryHTMLBase 64 [id number] ZXJu [file] ZTo (more content not included)...NormalSt. Francis HospitalLyme Disease Total Antibody With Reflex to Immunoaon [id number] Total Antibody EIA LCNegative Invalid Interpretation CodeNegativeSt. Francis HospitalComment on above:Result Comment: Lyme antibodies not detected. Reflex testing is not indicated. No laboratory evidence of infection with B. burgdorferi (Lyme disease). Negative results may occur in patients recently infected (less than or equal to 14 days) with B. burgdorferi. If recent infection is suspected, repeat testing on a new sample collected in 7 to 14 days is recommended. Performed At: [facility] [id number] Austin Simms PhD Ph:[phone] By: #### [id number] #### [facility] (DEFAULT) [address] [place], [place] [address]Afocybvfhw Visit Summaryon [id number] Visit SummaryAmbulatory Visit Summary DARIUS THACKER :1960 Visit Date:12/13/2024 Ambulatory Visit Instructions Your Diagnosis Establishing care with new doctor, encounter for CAD (coronary artery disease) Chronic stable angina History of placement of stent in LAD coronary artery Hypertension JOSE (obstructive sleep apnea) Hypercholesterolemia Renal cyst Adult BMI 29.0-29.9 kg/sq m Otitis externa Your Care Team Attending Physician - Anders Jesus DO Primary Care Physician - Anders Jesus DO This Is Your Medications List ciprofloxacin-dexamethasone otic (Ciprodex 0.3%-0.1% Susp-Otic) Contact prescribing physician if questions or concerns aspirin dapagliflozin (Farxiga 10 mg oral tablet) ezetimibe (ezetimibe 10 mg Tab) gemfibrozil lisinopril metoprolol (Metoprolol succinate 50 mg ER Tablet) omeprazole (Prilosec) rosuvastatin spironolactone (spironolactone 25 mg Tab) Procedures Performed Back, Cataracts, Insertion of coronary artery stent. Discharge Vitals Heart Rate (Peripheral) 84 Blood Pressure 108/70 Height 178 cm Height 70 in Weight 92.2 kg Weight 203.266 lb BMI 29.1 What to do next Scheduled Follow-Up Appointments Monday. 2025 1:00 PM EDT With: Anders Jesus DO Where: [facility] [place] [facility] [place] [address] [facility] [address] [place] [address]- You Need to Schedule the Following Appointments Follow Up with Anders Jesus DO, INÉS, PED When: Within 1 year Comments: annual wellness To go instructions: I recommend setting a goal to get back to being in the 180s ------ *When you see providers outside of [facility], please request that they send office visit notes every time you're seen there - this helps us take better care of you Screening guidelines: Colon cancer screening starts at age 45 for most people; cologuard every three years or colonoscopyevery ten years (for average risk patients) Prostate cancer screening with PSA should begin at age 50 Dental exams and cleanings every 6 months is recommended - oral health is a predictor of your future Smokers who have averaged a pack a day for over twenty years should have annual low dose Chest CT to screen for lung cancer starting at age 50 Follow up annually Where: [address] [place] [phone] Medications What How Much When Why Instructions New ciprofloxacin-dexamethasone otic (Ciprodex 0.3%-0.1% Susp-Otic) 4 Drops Otic 2 times a day Otitis externa Duration: 7 Days Pickup at [facility] #[id number] Unchanged aspirin 81 Milligram By Mouth Every day Contact prescribing physician if questions or concerns Unchanged dapagliflozin (Farxiga 10 mg oral tablet) 1 Tablets Contact prescribing physician if questions or concerns Unchanged ezetimibe (ezetimibe 10 mg Tab) By Mouth Every day Contact prescribing physician if questions or concerns Unchanged gemfibrozil 600 Milligram By Mouth 2 times a day Contact prescribing physician if questions or concerns Unchanged lisinopril 10 Milligram By Mouth Every day Contact prescribing physician if questions or concerns Unchanged metoprolol (Metoprolol succinate 50 mg ER Tablet) 50 Milligram By Mouth Every day Contactprescribing physician if questions or concerns Unchanged omeprazole (Prilosec) 20 Milligram By Mouth 2 times a day Contact prescribing physician if questions or concerns Unchanged rosuvastatin 20 Milligram By Mouth Every day Contact prescribing physician if questions or concerns Unchanged spironolactone (spironolactone 25 mg Tab) Contact prescribing physician if questions or concerns Pharmacy Information [facility] #[id number]: [address] [place], [place] [id number] [phone] Allergies No Known Allergies Problems Ongoing - Any problem that you are currently receiving treatment for. CAD (coronary artery disease) Chronic stable angina Establishing care with new doctor, encounter for GERD (gastroesophageal reflux disease) History of placement of stent in LAD coronary artery Hypercholesterolemia Hypertension JOSE (obstructive sleep apnea) Prostate cancer screening Renal cyst Historical - Any problem that you are no longer receiving treatment for. Anxiety Cholesterol Patient Survey You may receive a survey via text or e-mail asking about your office visit. Please share your experience with us by completing your survey. We appreciate your feedback and thank you for choosing us for your care. [facility] Medicine Office/Clinic Noteon [id number] Medicine Office/Clinic NoteFasouthwood community hospital Medicine Office/Clinic Note Chief Complaint EST CARE HPI Staff Establish Care: History: Last provider: Sada Petersen Any recent labs:11/08/22 Health Maintenance UTD: Colonoscopy: [facility] 10 yr recall PSA: 11/08/22 SPECIALISTS: Cardiologists Dr Camila Sen Acute: Current issues/complaints: Ear ache right. 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 [place] -- took some time after he left [employer] before purchasing the [place] location The patient has 2 child(lo) -- his daughter is Ana Pitts - she works at [employer] [facility] 5 grandchild(lo) no great grandchild(lo) - yet Screening: Colon Cancer screenin with a ten year f/u recommended; this patient does not have family history of colon cancer Prostate Cancer screening: recent PSA - this patient does _ have a family history of prostate cancer diagnosed before age 65 Labs: _ Hep C screen since age 19: _ HIV screen since age 19: _ Smokers/ former smokers: Low dose lung CT: _ List of Providers: Urologist - Dr. Claude Chahal - [facility] [employer] Performance Engineer - Dr. Camila Sen - [facility] Spine surgeon - Sujata - hx of discectomy in the -- Dr Sean Veronica To do list: _ HPI staff / Chief Complaint confirmed with the patient Interval history: _ saw urology for renal cyst - they have recommended no need for follow up using CPAP consistently TX in 2014 stent to LAD up 20 pounds compared to May 2024 was previously walking seven miles a day has been working 6 days a week hoping to get back to walking more soon June 05, 2024 -cardiology at [facility]/seen at [facility] clinic 3-month follow-up after heart cath performed on 02/28/2024. Asymptomatic. Occasional orthostatic hypotension CAD, LAD TX treated by stenting in February 2015 and subsequent systolic heart failure Ejection fraction improved to 40% by January 2016 Noted history of acute renal insufficiency while on spironolactone that resolved after stopping it Prior renal duplex ultrasound did not show significant renal artery stenosis Spironolactone was resumed in January 2023 and follow-up basic metabolic panel showed normal renal function Evaluated on May 19, 2023 because of 2 episodes of syncope while walking. Furosemide was stopped at that time. Also due to the low blood pressure lisinopril was stopped. Evaluated in the cardiology office on January 23, 2024 due to symptoms suggestive of unstable angina with chest pain and shortness of breath and near syncope. Cardiac catheterization was performed on 02/28/2024 which revealed stable coronary artery disease. Since then he has been doing well Continue Farxiga 10 mg daily Zetia 10 mg daily Gemfibrozil 600 mg twice daily Lisinopril 10 mg Metoprolol succinate 25 mg Omeprazole 20 mg Crestor 40 mg Spironolactone 25 mg take half tablet daily Recent GFR in February 2024 greater than 60 recommend 1 year follow-up (anything tagged from the patients medical record will be at the bottom of this section) LABS Cr/eGFR: No qualifying data available From last note: Review of Systems PHQ Score Initial Depression Screen Score: 0 SCORE Physical Exam Vitals & Measurements HR: 84(Peripheral) BP: 108/70 SpO2: 96% HT: 178 cm HT: 70 in WT: 92.2 kg WT: 203.266 lb BMI: 29.1 PHYSICAL EXAM Constitutional: Vital signs reviewed; DARIUS THACKER is well nourished, no acute distress Head: Atraumatic, normocephalic Eye: EOMI, normal conjunctiva ENT: Moist oral mucosa, external inspection of ears and nose is unremarkable Neck: Trachea is midline, no tenderness Lungs: Clear to auscultation, non-labored respiration - expansion is symmetric Heart: Normal rate and rhythm, normal peripheral perfusion Lymph: Deferred Abd: Deferred : Deferred MSK: Normal gait and station Skin: Warm, dry Neurologic: Awake, alert and oriented, speech is normal, no focal deficits, CN II-XII grossly intact Psychiatric: Cooperative, appropriate mood and affect, judgement is appropriate Assessment/Plan 1. Establishing care with new doctor, encounter for (Z76.89: Persons encountering health services in other specified circumstances) noted as it relates to significantly more time spent with reviewing the patient's records and chartpreparation today 2. CAD (coronary artery disease) (I25.10: Atherosclerotic heart disease of [place] coronary artery without angina pectoris) chronic on optimal therapy following with cardiology I would like to see this patient lose 20 pounds and resume daily walking with a goal up to 10,000 steps daily 3. Chronic stable angina (I20.89: Other forms of angina pectoris) Chronic Stable Asymptomatic today On BB (more content not included)...[facility] HospitalComment on above: Result Comment: Electronically Signed By: Anders Jesus DO\Date and Time Signed: 12/13/24 18:57 EDTNo Panel Informationon [id number] EulogioBASSAM mclean 12/02/2024 3:32 PM L Inj/Asp: bilateral glenohumeral on 11/28/2024 4:00 PM Indications: pain Details: 25 G needle, ultrasound-guided Medications (Right): 6 mg betamethasone acetate-betamethasone sodium phosphate 6 (3-3) MG/ML Medications (Left): 6 mg betamethasone acetate-betamethasone sodium phosphate 6 (3-3) MG/ML Consent was given by the patient. [facility] [id number] (SPNMMN) DARIUS THACKER ([id number]) 1960 M Date Time Provider Department 09/13/24 [facility] During your visit today, we recorded the following information about you: Doris Garcia LPN 09/13/2024 12:25 PM Signed A[employer] message sent to patient with Procedure Instructions. Allergies As of Date: 09/13/2024 Noted Allergy Reaction ATORVASTATIN 06/14/2022 16 - Unknown Comments: Other Reaction(s): Not available Date Reviewed: 10/25/2023 Reviewed by: Nicole Ryan OD - Fully Assessed Reason for Visit: Preperations for Procedure [Other] Cmt: Mychart Prescriptions as of 09/13/2024 - neomycin/polymyxin b/dexametha(MAXITROL 3.5 MG/G-10,000 UNIT/G-0.1 % EYE OINTMENT) Apply to lids/lashes Both eyes at bedtime until gone - spironolactone (ALDACTONE) 12.5 mg tab - aspirin, enteric coated (ASPIRIN, ENTERIC COATED) [...] TAKE 2 CAPSULES BY MOUTH EVERY DAY Problem List As Of Date 09/13/2024 Noted Resolved Hyperlipidemia [E78.5] 03/18/2014 Diverticulosis [K57.90] Fracture, ankle [S82.899A] JOSE (obstructive sleep apnea) [G47.33] Elevated liver enzymes [R74.8] Hypertriglyceridemia [E78.1] Osteoarthritis [M19.90] Asthma [J45.909] Kidney stones [N20.0] Lumbar transverse process fracture (HCC) [S32.0*11/07/2014 Lumbosacral neuritis [M54.17] 10/04/2022 Essential (primary) hypertension [I10] 11/22/2022 Generalized ischemic myocardial dysfunction [I2*06/14/2022 Heart failure (HCC) [I50.9] 12/29/2022 Superficial keratitis of right eye [H16.101] 04/12/2023 Status post cataract extraction [Z98.49] 04/12/2023 Keratoconjunctivitis sicca of both eyes not spe*04/20/2023 Encounter Status:Closed by DORIS GARCIA on 09/13/24[facility] RehabilitationSANDIEon [id number] (SPNMMN) DARIUS THACKER ([id number]) 1960 M Date Time Provider Department 08/05/24 [facility] SPNMMN During your visit today, we recorded the following information about you: Doris Garcia LPN 08/05/2024 5:28 PM Signed Called patient to review his procedure instructions for 08/15/24. Patient stated he had this procedure rescheduled for some time in September, but chart not updated as of yet. Allergies As of Date: 08/05/2024 Noted Allergy Reaction ATORVASTATIN 06/14/2022 16 - Unknown Comments: Other Reaction(s): Not available Date Reviewed: 10/25/2023 Reviewed by: Nicole Ryan OD - Fully Assessed Reason for Visit: Preperations for Procedure Call [Other] Prescriptions as of 08/05/2024 - neomycin/polymyxin b/dexametha(MAXITROL 3.5 MG/G-10,000 UNIT/G-0.1 % EYE OINTMENT) Apply to lids/lashes Both eyes at bedtime until gone - spironolactone (ALDACTONE) 12.5 mg tab - aspirin, enteric coated (ASPIRIN, ENTERIC COATED) [...] TAKE 2 CAPSULES BY MOUTH EVERY DAY Problem List As Of Date 08/05/2024 Noted Resolved Hyperlipidemia [E78.5] 03/18/2014 Diverticulosis [K57.90] Fracture, ankle [S82.899A] JOSE (obstructive sleep apnea) [G47.33] Elevated liver enzymes [R74.8] Hypertriglyceridemia [E78.1] Osteoarthritis [M19.90] Asthma [J45.909] Kidney stones [N20.0] Lumbar transverse process fracture (HCC) [S32.0*11/07/2014 Lumbosacral neuritis [M54.17] 10/04/2022 Essential (primary) hypertension [I10] 11/22/2022 Generalized ischemic myocardial dysfunction [I2*06/14/2022 Heart failure (HCC) [I50.9] 12/29/2022 Superficial keratitis of right eye [H16.101] 04/12/2023 Status post cataract extraction [Z98.49] 04/12/2023 Keratoconjunctivitis sicca of both eyes not spe*04/20/2023 Encounter Status:Closed by DORIS GARCIA on 08/05/24NoAdena Fayette Medical CenterCNPNon [id number] (SPNMMN) DARIUS THACKER ([id number]) 1960 M Date Time Provider Department 08/02/24 [facility] [facility] During your visit today, we recorded the following information about you: Doris Garcia LPN 08/02/2024 4:37 PM Signed Apmetrix message sent to patient for Procedure Instructions. Allergies As of Date: 08/02/2024 Noted Allergy Reaction ATORVASTATIN 06/14/2022 16 - Unknown Comments: Other Reaction(s): Not available Date Reviewed: 10/25/2023 Reviewed by: Nicole Ryan OD - Fully Assessed Reason for Visit: Preperations for Procedure [Other] Cmt: Mychart Prescriptions as of 08/02/2024 - neomycin/polymyxin b/dexametha(MAXITROL 3.5 MG/G-10,000 UNIT/G-0.1 % EYE OINTMENT) Apply to lids/lashes Both eyes at bedtime until gone - spironolactone (ALDACTONE) 12.5 mg tab - aspirin, enteric coated (ASPIRIN, ENTERIC COATED) [...] TAKE 2 CAPSULES BY MOUTH EVERY DAY Problem List As Of Date 08/02/2024 Noted Resolved Hyperlipidemia [E78.5] 03/18/2014 Diverticulosis [K57.90] Fracture, ankle [S82.899A] JOSE (obstructive sleep apnea) [G47.33] Elevated liver enzymes [R74.8] Hypertriglyceridemia [E78.1] Osteoarthritis [M19.90] Asthma [J45.909] Kidney stones [N20.0] Lumbar transverse process fracture (HCC) [S32.0*11/07/2014 Lumbosacral neuritis [M54.17] 10/04/2022 Essential (primary) hypertension [I10] 11/22/2022 Generalized ischemic myocardial dysfunction [I2*06/14/2022 Heart failure (HCC) [I50.9] 12/29/2022 Superficial keratitis of right eye [H16.101] 04/12/2023 Status post cataract extraction [Z98.49] 04/12/2023 Keratoconjunctivitis sicca of both eyes not spe*04/20/2023 Encounter Status:Closed by DORIS GARCIA on 08/02/24[facility] Visiton [id number] Darius Thacker 1960 M Date Provider Department Center 06/05/2024 367-CAMILA SEN UGO Rodriguez [facility] Family History Problem Relation Age of Onset Leukemia Mother Diabetes Father Heart attack Father Family Status - Relation Status Age at Mother Father Level of Service:50852 RI OFFICE/OUTPATIENT ESTABLISHED LOW [facility] Ambulatory Visit SummaryAmbulatory Visit Summary DARIUS THACKER :1960 Visit Date:06/03/2024 Ambulatory Visit Instructions Your Diagnosis Renal cyst Prostate cancer screening Your Care Team Attending Physician - ORA MILLER, Francois George Primary Care Physician - NICOLA JENSEN, Maria D Cueva This Is Your Medications List Contact prescribing physician if questions or concerns Misc Prescription (FUROSEMIDE 20 MG TABS) aspirin dapagliflozin (Farxiga 10 mg oral tablet) furosemide (Lasix) gemfibrozil lisinopril metoprolol (Metoprolol succinate 50 mg ER Tablet) omeprazole (Prilosec) rosuvastatin spironolactone (spironolactone 25 mg Tab) Procedures Performed Back, Cataracts, Insertion of coronary artery stent. Discharge Vitals Temperature (Temporal Artery) 37 ???C Heart Rate (Peripheral) 83 Respiratory Rate 17 Blood Pressure 126/84 Height 178 cm Height 70 in Weight 82 kg Weight 180.779 lb BMI 25.88 What to do next You Need to Schedule the Following Appointments Follow Up with ORA MILLER, Francois George, RAQUEL When: Only if needed Where: [facility] [address] [place] [address] [phone] Medications What How Much When Instructions Unchanged aspirin 81 Milligram By Mouth Every day Contact prescribing physician if questions or concerns Unchanged dapagliflozin (Farxiga 10 mg oral tablet) 1 Tablets Contact prescribing physician if questions or concerns Unchanged furosemide (Lasix) 20 Milligram By Mouth Every other day Contact prescribing physician ifquestions or concerns Unchanged gemfibrozil 600 Milligram By Mouth 2 times a day Contact prescribing physician if questions or concerns Unchanged lisinopril 10 Milligram By Mouth Every day Contact prescribing physician if questions or concerns Unchanged metoprolol (Metoprolol succinate 50 mg ER Tablet) 50 Milligram By Mouth Every day Contactprescribing physician if questions or concerns Unchanged Misc Prescription (FUROSEMIDE 20 MG TABS) 0 Contact prescribing physician if questions orconcerns Unchanged omeprazole (Prilosec) 20 Milligram By Mouth 2 times a day Contact prescribing physician if questions or concerns Unchanged rosuvastatin 20 Milligram By Mouth Every day Contact prescribing physician if questions or concerns Unchanged spironolactone (spironolactone 25 mg Tab) Contact prescribing physician if questions or concerns Allergies No Known Allergies Problems Ongoing - Any problem that you are currently receiving treatment for. GERD (gastroesophageal reflux disease) Hypercholesterolemia Hypertension JOSE (obstructive sleep apnea) Prostate cancer screening Renal cyst Historical - Any problem that you are no longer receiving treatment for. Anxiety Cholesterol Patient Survey You may receive a survey via text or e-mail asking about your office visit. Please share your experience with us by completing your survey. We appreciate your feedback and thank you for choosing us for your care. Education Materials Prostate Cancer Screening Prostate cancer screening is testing that is done to check for the presence of prostate cancer in men. The prostate gland is a walnut-sized gland that is located below the bladder and in front of therectum in males. The function of the prostate is to add fluid to semen during ejaculation. Prostatecancer is one of the most common types of cancer in men. Who should have prostate cancer screening? Screening recommendations vary based on age and other risk factors, as well as between the professional organizations who make the recommendations. In general, screening is recommended if: ??? You are age 50 to 70 and have an average risk for prostate cancer. You should talk with your healthcare provider about your need for screening and how often screening should be done. Because most prostate cancers are slow growing and will not cause , screening in this age group is generally reserved for men who have a 10- to 15-year life expectancy. ??? You are younger than age 50, and you have these risk factors: ? Having a father, brother, or uncle who has been diagnosed with prostate cancer. The risk is higher if your family member's cancer occurred at an early age or if you have multiple family members with prostate cancer at an early age. ? Being a male who is Black or is of [place] or sub-Saharan descent. In general, screening is not recommended if: ??? You are younger than age 40. ??? You are between the ages of 40 and 49 and you have no risk factors. ??? You are 70 years of age or older. At this age, the risks that screening can cause are greater than the benefits that it may provide. If you are at high risk for prostate cancer, your health care provider may recommend that you have screenings more often or that you start screening at a younger age. How is screening for prostate cancer done? The recommend (more content not included)...[facility] Urology Office/Clinic Noteon [id number] Office/Clinic NoteUrology Office/Clinic Note Chief Complaint renal cyst HPI Staff 1 year f/u with TERRY DX: renal cyst and prostate cancer screening PSA 03/16/15 - 0.6 10/18/22 - 0.72 Dysuria: denies Incomplete bladder emptying: denies Hematuria: denies Frequency: denies Urgency: denies Nocturia: 2-3x Stream: no straining or hesitancy Leaking: denies Post void dripping: denies Wearing pads/ Depends: denies Urge incontinence: denies Stress incontinence: denies Incontinence without Sensory Awareness: denies Abdominal pain: denies Flank pain: denies Sexual complaints: denies History of Present Illness Tests reviewed: reviewed TERRY I have reviewed the previous health record information and history for this patient from Dr. Payan. I have reviewed and verified the staff HPI to be accurate for this encounter. Review of Systems PHQ Score Initial Depression Screen Score: 0 SCORE ROS - Provider Constitutional: denies weight loss, denies hot flashes. Eyes: denies eye problems. Gastrointestinal: denies nausea, denies vomiting. Cardiovascular: denies chest pain or angina. Integumentary: no dryness Musculoskeletal: denies musculoskeletal symptoms. ENMT: denies otolaryngeal symptoms. Respiratory: no shortness of breath. Heme/Lymph: denies easy bleeding tendency, denies easy bruising tendency. Psychiatric: no confusion, no anxiety. Genitourinary: See HPI. Physical Exam Vitals & Measurements T: 37 ???C(Temporal Artery) HR: 83(Peripheral) RR: 17 BP: 126/84 HT: 70 in HT: 178 cm WT: 82 kg WT: 180.779 lb BMI: 25.88 General Appearance: alert, no distress, well nourished, well developed male. Assessment/Plan 1. Renal cyst (N28.1: Cyst of kidney, [...] US. CMP 11/08/22 - kidney function wnl. TERRY 03/27/24 [facility] [place] 7.1 x 4.5 x 7.1 cm exophytic cortical cyst RUP. 1.4 x 1.6 x 1.5 cm cortical cyst LLP. Reviewed imaging results Cysts appear stable. Educated pt cysts are simple and do not require monitoring. 2. Prostate cancer screening (Z12.5: Encounter for screening for malignant neoplasm of prostate) PSA 03/16/15 - 0.6 10/18/22 - 0.72 Denies family hx of prostate ca. No sample provided for UA today. No issues with urination. -Submit urine sample prior to leaving office today...urine is clear. Follow-up With When Contact Information ORA MILLER, Francois George, URL Only if needed [facility] [address], [place] [address]- [phone] Additional Instructions: Patient Education Prostate Cancer Screening IMarci, personally scribed for Dr. Payan on 06/03/2024 11:26:02. . Documentation recorded by the scribe, Marci Rangel, accurately reflects the services(s) I performed and decisions made by me. Authenticated by Dr. Payan on 06/03/2024 11:31:57. Problem List/Past Medical History Ongoing GERD (gastroesophageal reflux disease) Hypercholesterolemia Hypertension JOSE (obstructive sleep apnea) Prostate cancer screening Renal cyst Historical Anxiety Cholesterol Procedure/Surgical History Back, Cataracts, Insertion of coronary artery stent. Medications aspirin, 81 mg, Oral, Daily Farxiga 10 mg oral tablet, 10 mg= 1 tab(s) FUROSEMIDE 20 MG TABS, 0 gemfibrozil, 600 mg, Oral, BID Lasix, 20 mg, Oral, Every other day lisinopril, 10 mg, Oral, Daily Metoprolol succinate 50 mg ER Tablet, 50 mg, Oral, Daily Prilosec, 20 mg, Oral, BID rosuvastatin, 20 mg, Oral, Daily spironolactone 25 mg Tab Allergies No Known Allergies Social History Alcohol Never., 06/02/2024 Substance Abuse Never., 06/02/2024 Tobacco Former smoker, quit more than 30 days ago Tobacco Use:. Cigarettes, Household tobacco concerns: No.Yes, 06/03/2024 Past, Cigarettes, 11/16/2010 Family History Family history is negative Immunizations Vaccine Date Status Comments zoster vaccine, inactivated 06/21/2022 Recorded pneumococcal 20-valent conjugate vaccine 06/21/2022 Recorded influenza virus vaccine, inactivated 05/31/2022 Recorded SARS-CoV-2 (COVID-19) mRNAMUL.[id number] 05/31/2022 Recorded SARS-CoV-2 (COVID-19) mRNA-1273 vaccine 05/11/2021 Recorded 2023-03-13: [id number] SARS-CoV-2 (COVID-19) mRNA-1273 vaccine 11/12/2020 Recorded SARS-CoV-2 (COVID-19) mRNA-1273 vaccine 10/19/2020 Recorded influenza virus vaccine, inactivated 05/24/2018 Recorded diphtheria/pertussis, acel/tetanus adult 08/01/2016 Recorded influenza virus vaccine, inactivated 07/21/2016 RecordedGreene Memorial HospitalComment on above:Result Comment: Electronically Signed By: Francois PAYAN MD\.br\Date and Time Signed: 06/03/24 11:32 EST\.br\Electronically Co-Signed By: Marci Rangel\.br\Date and Time Co-Signed: 06/03/24 11:26 EST Refillon [id number] Darius Thacker 1960 M Date Provider Department Center 05/16/2024 KATALINA YEPEZ [facility] Family History Problem Relation Age of Onset Leukemia Mother Diabetes Father Heart attack Father Family Status - Relation Status Age at Mother Father Reason for Visit and Comments: Med Refill [[id number]][facility] Noteon [id number] Office/Clinic NoteSleep Office/Clinic Note History of Present Illness Here for follow-up for underlying obstructive sleep apnea. The patient was last seen over 3 years ago but reports that he has been using his CPAP machine at a pressure of 7 cm via full facemask on a regular basis. His reports he has no snoring while he is on the machine and he feels that his sleep quality and daytime sleepiness is significantly better with the use of the machine as well. Recently been having issues with getting supplies and hence presented for further evaluation. He reports that his weight has been relatively stable. He was to switch his [employer] company as well. Review of Systems Constitutional: no fever, no chills, no sweats, no weakness Skin: no Jaundice, no rash, no lesions, no petechiae ENT: no ear pain, no sore throat, no congestion, no hoarseness Respiratory: Denies shortness of breath, cough or wheezing Cardiovascular: no chest pain, no palpitations, no edema Gastrointestinal: no nausea, no vomiting, no diarrhea, no GI bleeding Genitourinary: no dysuria, no hematuria, no discharge, no pain Musculoskeletal: no back pain, no trauma Neurologic: no headache, no dizziness, no numbness, no weakness Psychiatric: no irritability, no mood swings/depression. Heme/Lymph: no bleeding tendency, no bruising tendency, no petechiae, no swollen nodes Allergy/Immunologic: no seasonal allergies, no food allergies, no recurrent infections, no impairedimmunity Additional ROS info: Except as noted in the above Review of Systems and in the History of Present Illness all other systems have been reviewed and are negative or noncontributory. Physical Exam General: Awake, alert, in no acute distress Skin: warm, dry Head: no trauma, normocephalic. Prolonged soft palate Neck: Trachea midline, no adenopathy, no tenderness Eye: normal conjunctiva, sclera clear ENMT: TM's clear, oral mucosa moist, no pharyngeal erythema or exudate Cardiovascular: regular rate and rhythm, normal peripheral perfusion Respiratory: Good breath sounds to both lung woody without wheezing or crackles. Gastrointestinal: soft, non distended, no tenderness, no guarding. Back: No tenderness, Normal ROM, Normal alignment. Extremities: no deformity, no trauma Neurological: oriented x 4, LOC appropriate for age, CN II-XII intact, motor strength equal & normal bilaterally, sensation equal & normal bilaterally, speech normal Psychiatric: cooperative, affect appropriate for age, normal judgement, normal psychiatric thoughts. Assessment/Plan 1. JOSE (obstructive sleep apnea) (G47.33: Obstructive sleep apnea (adult) (pediatric)) His prior sleep study was reviewed with underlying moderate to severe obstructive sleep apnea with an apnea hypopnea index of 29.7/hour with mild oxygen desaturation. He has been compliant with his CPAP at a pressure of 7 cm, however I was unable to obtain a download from his machine today. Advised him to register his machine with his new DME company. I will arrange for new supplies and see him back after 1 year unless issues develop in the meantime. He was encouraged to send me a download from his machine once his machine is registered with his new DME company. Follow-up No qualifying data available Problem List/Past Medical History Ongoing GERD (gastroesophageal reflux disease) Hypercholesterolemia Hypertension JOSE (obstructive sleep apnea) Prostate cancer screening Renal cyst Historical Anxiety [...] History Family history is negative Immunizations Vaccine Date Status Comments zoster vaccine, inactivated 06/21/2022 Recorded pneumococcal 20-valent conjugate vaccine 06/21/2022 Recorded influenza virus vaccine, inactivated 05/31/2022 Recorded SARS-CoV-2 (COVID-19) [id number].[id number] 05/31/2022 Recorded SARS-CoV-2 (COVID-19) mRNA-1273 vaccine 05/11/2021 Recorded 2023-03-13: TPV60 SARS-CoV-2 (COVID-19) mRNA-1273 vaccine 11/12/2020 Recorded SARS-CoV-2 (COVID-19) mRNA-1273 vaccine 10/19/2020 Recorded influenza virus vaccine, inactivated 05/24/2018 Recorded diphtheria/pertussis, acel/tetanus adult 08/01/2016 Recorded influenza virus vaccine, inactivated 07/21/2016 RecordedGreene Memorial HospitalComment on above:Result Comment: Electronically Signed By: Aliyah MILLER, Oliva Kilgore\.br\Date and Time Signed: 05/06/24 10:07 EDTUS Renalon [id number] RenalExam Date/Time: 03/27/2024 09:33 EDT Reason for Exam: N28.1;Other (please specify) Report IMPRESSION: Bilateral simple renal cysts. CLINICAL HISTORY: N28.1. COMPARISON: NONE. FINDINGS: Right kidney measures 13.1 x 8.6 x 7.5 cm. Kidney measures 13.2 x 6.2 x 6.8 cm. Both kidneys normal in size, shape, echogenicity, color flow. 7.1 x 4.5 x 7.1 cm exophytic cortical cyst upper pole right kidney. 1.4 x 1.6 x 1.5 cm cortical cyst, lower pole left kidney. No pelvocaliectasis, calculi, solid lesions, cortical thinning bilaterally. Ordering Provider: Francois PAYAN FINAL REPORT Dictated: 03/29/2024 1:49 pm Jagdish Sanchez MD Signed (Electronic Signature): 03/29/2024 1:49 pm Signed by: Jagdish Sanchez MD Transcribed by: JESSICA Technologist: [facility] HospitalRefillon [id number] Darius Thacker 1960 Date Provider Department Center 03/27/2024 [id number] RAVI [facility] Family History Problem Relation Age of Onset Leukemia Mother Diabetes Father Heart attack Father Family Status - Relation Status Age at Mother Father Reason for Visit and Comments: Med Refill [[id number]][facility] CenterHPon [id number] History Of Present Illness Darius Thacker is a 63 y.o. male with a PMHx significant for CAD s/p PCI LAD 2014, HFrEF, HTN, HLD. Patient presents with symptoms of chest pain and dyspnea. Patient presents today for coronary angiogram for evaluation of CAD. Past Medical History He has a past medical history of Abnormal ECG, CHF (congestive heart failure) ([facility]/HCC), Coronary artery disease, Hyperlipidemia, Hypertension, and Myocardial infarction ([facility]). Surgical History He has a past surgical history that includes Coronary stent placement; Cardiac catheterization; and Back surgery. Social History He reports that he has never smoked. He has never used smokeless tobacco. He reports current alcohol use. No history on file for drug use. Family History Family History Problem Relation Name Age of Onset Leukemia Mother Diabetes Father Heart attack Father Allergies Patient has no known allergies. Medications Medications Prior to Admission Medication Sig Dispense Refill Last Dose aspirin 81 mg chewable tablet Chew 1 tablet (81 mg) in the morning. 90 tablet 3 02/28/2024 Farxiga 10 mg TAKE 1 TABLET(10 MG) BY MOUTH IN THE MORNING 90 tablet 3 02/28/2024 gemfibrozil (Lopid) 600 mg tablet Take 1 tablet (600 mg) by mouth in the morning and at bedtime. 180 tablet 3 02/28/2024 lisinopril 10 mg tablet Take 10 mg by mouth in the morning. 02/28/2024 metoprolol succinate XL (Toprol-XL) 25 mg 24 hr tablet Take 1 tablet (25 mg) by mouth once daily as directed. Do not crush or chew. 90 tablet 3 02/28/2024 omeprazole (PriLOSEC) [address] capsule Take 2 capsules (40 mg) by mouth once daily as directed. 180 capsule 3 02/28/2024 rosuvastatin (Crestor) 40 mg tablet Take 1 tablet (40 mg) by mouth at bedtime. 90 tablet 3 02/27/2024 spironolactone (Aldactone) 25 mg tablet TAKE 1/2 TABLET(12.5 MG) BY MOUTH IN THE MORNING 45 tablet 3 02/28/2024 desvenlafaxine (Pristiq) 50 mg 24 hr tablet Take 1 tablet by mouth in the morning. Not Taking Review of Systems Constitutional: Negative for diaphoresis. Respiratory: Negative for shortness of breath. Cardiovascular: Negative for chest pain, palpitations and leg swelling. Neurological: Negative for light-headedness. All other systems reviewed and are negative. Last Recorded Vitals Visit Vitals BP (!) 131/98 Pulse 65 Resp 16 SpO2 98% Smoking Status Never Physical Exam Vitals reviewed. Constitutional: General: He is not in acute distress. Appearance: Normal appearance. HENT: Head: Normocephalic and atraumatic. Nose: Nose normal. Mouth/Throat: Mouth: Mucous membranes are moist. Eyes: Extraocular Movements: Extraocular movements intact. Conjunctiva/sclera: Conjunctivae normal. Pupils: Pupils are equal, round, and reactive to light. Cardiovascular: Rate and Rhythm: Normal rate and regular rhythm. Pulses: Normal pulses. Heart sounds: Normal heart sounds, S1 normal and S2 normal. No murmur heard. Pulmonary: Effort: Pulmonary effort is normal. No respiratory distress. Breath sounds: Normal breath sounds. Abdominal: General: There is no distension. Palpations: Abdomen is soft. Musculoskeletal: Cervical back: Normal range of motion. Right lower leg: No edema. Left lower leg: No edema. Skin: General: Skin is warm. Neurological: Mental Status: He is alert. Mental status is at baseline. Psychiatric: Mood and Affect: Mood normal. Behavior: Behavior normal. Relevant Lab Results No results found for: NA , K , CL , CO2 , BUN , CREATININE , GLUCOSE , CALCIUM , ANIONGAP , EGFR , BCR Relevant Imaging Results No image results found. Assessment/Plan Active Problems: Unstable angina pectoris due to coronary arteriosclerosis ([facility]) Coronary arteriosclerosis 63 y.o. year old male with a PMHx significant for CAD s/p PCI LAD 2014, HFrEF, HTN, HLD. Patient presents with symptoms of chest pain and dyspnea. Patient presents today for coronary angiogram for evaluation of CAD. Unstable angina Plan to proceed with coronary angiogram for evaluation of CAD. Procedure was explained to patient at length and in detail. Risks, benefits, and alternatives were discussed. Patient is informed that risks of this invasive procedure include, but are not limited to, bleeding, hematoma, kidney injury, CVA, arrythmia requiring defibrillation, need for emergent open heart surgery, and . Patient understands these risks and wishes to proceed. Signed, Julisa Medellin MD PGY-4 [employer] House[employer] Pager: [phone] Health SystemNURSNOTEon [id number] ok for discharge at 12:[address] Monroy.[facility] CenterNRUTH educated pt on d/c instructions. RN encouraged pt to voice any questions or concerns. Pt verbalizes no questions or concerns at this time. Pt was wheeled off of unit with all of belongings.[facility]36on [id number] lab results from 02/13/2024: Katalina Ng, AARON Amador, BASSAM So his cholesterol is worse and not controlled with LDL greater than 100 when it should be < 70 and closer to 55. Please ask if he is really taking crestor and febrizol? If so then he needs a med added to regime- Vacepa or leqvio. He has a cath coming up with Camila 02/27- I think. LM for patient to return my call.[facility] CenterOrders Onlyon [id number] Darius Thacker 1960 M Provider Department Center 02/20/2024 ALEXA OLMEDO [facility] VAS LAB MO HeartVAS Family History Problem Relation Age of Onset Leukemia Mother Diabetes Father Heart attack Father Family Status - Relation Status Age at Mother FatherNormalUniversMercy Health Perrysburg HospitalAbstracton [id number] Darius Thacker 1960 [place] Provider Department Center 02/09/2024 CAMILA KANG [facility] CARD [place] Family History Problem Relation Age of Onset Leukemia Mother Diabetes Father Heart attack Father Family Status - Relation Status Age at Mother FatherNormalUniversMercy Health Perrysburg HospitalLetter (Out)on [id number] ([id number] Darius Thacker 1960 Provider Department Center 02/09/2024 None-None [facility] Family History Problem Relation Age of Onset Leukemia Mother Diabetes Father Heart attack Father Family Status - Relation Status Age at Mother FatherNormalUniversMercy Health Perrysburg Hospital29on [id number] by: KATALINA NG on: 01/24/2024 06:57 AM Modules accepted: OrdersNormalUniversMercy Health Perrysburg HospitalOffice Visiton [id number] Darius Thacker 1960 M Date Provider Department Center 01/23/2024 KATALINA YEPEZ CARD [place] [facility] Family History Problem Relation Age of Onset Leukemia Mother Diabetes Father Heart attack Father Family Status - Relation Status Age at Mother Father Level of Service:20672 [place] OFFICE/OUTPATIENT ESTABLISHED MOD [facility]DM 30 [facility] 64-50-3775Pjgrlw-up visit [id number] Darius Thacker 1960 M Date Provider Department Center 06/27/2023 CAMILA KANG CARD [facility] Family History Problem Relation Age of Onset Leukemia Mother Diabetes Father Heart attack Father Family Status - Relation Status Age at Mother Father Level of Service:50615 [place] OFFICE/OUTPATIENT ESTABLISHED LOW MDM 20-29 [facility] AUTO DIFFon 57-15-5023SHUB #0.0 103/ul Normal0.0-0.1[facility] HospitalComment on above:Performed By: #### CBC #### [facility] [address] [address] [address] Lenard MaloneyBasophils/100 WBC (Bld)0.7 %Normal0.2-2.0[facility] Comment on above:Performed By: #### CBC #### [facility] [address] [address] [address] Lenard Conte #0.2 103/ulNormal0.0-0.7The [facility] HospitalComment on above: Performed By: #### CBC #### [facility] [address] [address] [address] Lenard Hernándezosinophils/100 WBC (Bld)2.8 %Normal0.9-7.0[facility] Comment on above:Performed By: #### CBC #### [facility] [address] [address] [address] Lenard Hernándezrythrocyte distribution width (RBC) [Ratio]11.6 %Didgex04.0-15.0 [facility] HospitalComment on above:Performed By: #### CBC #### [facility] [address] [place] [address] Dr. Lenard MaloneyHematocrit (Bld) [Volume fraction]41.1 %Critically low42.0-54.0 The [facility] HospitalComment on above:Performed By: #### CBC #### [facility] [address] [place] [address] Dr. Lenard MaloneyHemoglobin (Bld) [Mass/Vol]14.3 g/eGMhkfxr25.0-18.0The [facility] HospitalComment on above:Performed By: #### CBC #### [facility] [address] [place] [address] Dr. Lenard MaloneyIG #0.01 10e3/ulNormal0.00-0.03The [facility] HospitalComment on above:Performed By: #### CBC #### [facility] [address] [place] [address] Dr. Lenard Lama %0.2 %Normal0.0-0.5The [facility] HospitalComment on above: Performed By: #### CBC #### [facility] [address] [place] [address] Dr. Lenard Berger #2.1 103/ulNormal1.2-3.8The [facility] HospitalCommymichigan medical center [place] on above:Performed By: #### CBC #### [facility] [address] [place] [address] Dr. Lenard Doughertymphocytes/100 WBC (Bld)34.5 %Nxxkdw76.5-60.0The [facility] HospitalComment on above:Performed By: #### CBC #### [facility] [address] [place] [address] Dr. Lenard BaezUAL DIFF REQNONormalThe [facility] HospitalComment on above: Performed By: #### CBC #### [facility] [address] [place] [address] Dr. Lenard Ornelas (RBC) [Entitic mass]33.3 fbHxtnse58.9-34.0The [facility] HospitalComment on above:Performed By: #### CBC #### [facility] [address] [address] [address] Lenard DickensHC (RBC) [Mass/Vol]34.8 g/xOVujykx70.9-35.2The [facility] HospitalComment on above:Performed By: #### CBC #### [facility] [address] [address] [address] Lenard DickensV (RBC) [Entitic vol]95.8 fLCritically high80.0-94.0The [facility] HospitalComment on above:Performed By: #### CBC #### [facility] [address] [place] [address] Dr. Lenard Robertson #0.6 103/ulNormal0.3-0.8The [facility] HospitalComment on above:Performed By: #### CBC #### [facility] [address] [place] [address] Dr. Lenard Burtonocytes/100 WBC (Bld)10.0 %Normal1.7-12.0The [facility] Comment on above:Performed By: #### CBC #### [facility] [address] [place] [address] Dr. Lenard Flynn #3.2 103/ulNormal1.4-6.5The [facility] HospitalComment on above:Performed By: #### CBC #### [facility] [address] [place] [address] Dr. Lenard Garrettutrophils/100 WBC (Bld)51.8 %Kbeqoi77.0-75.0The [facility] HospitalComment on above:Performed By: #### CBC #### [facility] [address] [place] [address] Dr. Lenard Dodgelet mean volume (Bld) [Entitic vol]8.0 fLCritically low 9.5-13.5The [facility] HospitalComment on above:Performed By: #### CBC #### [facility] [address] [place] [address] Dr. Lenard MaloneyPLT224 103/scEyqdar948-144Gdx [facility] HospitalComment on above: Performed By: #### CBC #### [facility] [address] [address] [address] Lenard MaloneyRBC4.29 106/ulCritically low4.70-6.10The [facility] HospitalComment on above:Performed By: #### CBC #### [facility] [address] [address] [address] Lenard MaloneyWBC6.1 103/ulNormal4.0-11.0The [facility] on above: Performed By: #### CBC #### [facility] [address] [address] [address] Lenard MaloneyLIPID PROFILEon 93-22-6671FIYQ-HDL RATIO NORMSEE The [facility] Hospital at SouthwoodsCommymichigan medical center [place] on above:Result Comment: 3.3 - 4.4 LOW RISK 4.4 - 7.1 AVERAGE RISK 7.1 - 11.0 MODERATE RISK >11.0 HIGH RISKPerformed By: #### LIPID, CMP #### [facility] [address] [place] [address] Dr. Lenard MaloneyCholesterol [Mass/Vol]195 mg/dLNormal<=200The [facility] Comment on above:Performed By: #### LIPID, CMP #### [facility] [address] [place] [address] Dr. Lenard MaloneyCholesterol in HDL [Mass/Vol]102 mg/dLCritically sbbc51-97Qbk [facility] on above:Performed By: #### LIPID, CMP #### [facility] [address] [place] [address] Dr. Lenard MaloneyCholesterol in LDL [Mass/Vol]70.0 mg/dLAdena Health System on above:Performed By: #### LIPID, CMP #### [facility] [address] [place] [address] Dr. Lenard Barrettestergold.total/Cholesterol in HDL [Mass ratio]1.9 {ratio} NormalThe [facility] Hospitalment on above:Performed By: #### LIPID, CMP #### [facility] [address] [address] [address] Lenard Troy NORMAL> or = 60 mg/dl - LOW CARDIOVASCULAR RISK <40 mg/dl - HIGH CARDIOVASCULAR RISKTrinity Health SystemComment on above:Performed By: #### LIPID, CMP #### [facility] [address] [place] [address] Dr. Lenard Harrington CALC NORMALSEE BELOWTrinity Health SystemComment on above:Result Comment: <100 mg/dl OPTIMAL 100 - 129 mg/dl NEAR OR ABOVE OPTIMAL 130 - 159 mg/dl BORDERLINE HIGH 160 - 189 mg/dl HIGH >190 mg/dl VERY HIGH Performed By: #### LIPID, CMP #### [facility] [address] [place] [address] Dr. Lenard MaloneyTriglyceride [Mass/Vol]115 mg/dLNormal<=150The [facility] Comment on above:Performed By: #### LIPID, CMP #### [facility] [address] [place] [address] Dr. Lenard Haynes CALC23.0 mg/dLNoProMedica Fostoria Community HospitalComment on above: Performed By: #### LIPID, CMP #### [facility] [address] [place] [address] Dr. Lenard Walden 14(COMP METB)on 47-12-6393Qgizcqq [Mass/Vol]4.5 g/dLNormal 3.4-5.0The [facility] HospitalComment on above:Performed By: #### LIPID, CMP #### [facility] [address] [place] [address] Dr. Lenard MaloneyAlbumin/Globulin [Mass ratio]1.4 {ratio}NormalThe [facility] HospitalComment on above:Performed By: #### LIPID, CMP #### [facility] [address] [place] [address] Dr. Lenard Cruz [Catalytic activity/Vol]49 U/WUhrhae60-987Ewl [facility] HospitalComment on above:Performed By: #### LIPID, CMP #### [facility] [address] [place] [address] Dr. Lenrad Orlando [Catalytic activity/Vol]26 U/YTqmjpg57-44Shl [facility] HospitalComment on above:Performed By: #### LIPID, CMP #### [facility] [address] [place] [address] Dr. Lenard Torreson gap [Moles/Vol]14.2 mmol/LNormalDunlap [facility] Hospital Comment on above:Performed By: #### LIPID, CMP #### [facility] [address] [place] [address] Dr. Lenard MaloneyAST [Catalytic activity/Vol]23 U/JNsgwoo76-86Svs [facility] HospitalComment on above:Performed By: #### LIPID, CMP #### [facility] [address] [place] [address] Dr. Lenard MaloneyBilirubin [Mass/Vol]0.6 mg/dLNormal0.2-1.0[facility] Comment on above:Performed By: #### LIPID, CMP #### [facility] [address] [place] [address] Dr. Lenard MaloneyCalcium [Mass/Vol]9.2 mg/dLNormal8.5-10.1[facility] Comment on above:Performed By: #### LIPID, CMP #### [facility] [address] [place] [address] Dr. Lenard MaloneyChloride [Moles/Vol]97 mmol/LCritically xse40-527Qgk [facility] HospitalComment on above:Performed By: #### LIPID, CMP #### [facility] [address] [place] [address] Dr. Lenard MaloneyCO2 [Moles/Vol]28.7 mmol/JCderol33.0-32.0[facility] Comment on above:Performed By: #### LIPID, CMP #### [facility] [address] [place] [address] Dr. Lenard MaloneyCreatinine [Mass/Vol]0.84 mg/dLNormal0.70-1.30The [facility] HospitalComment on above:Performed By: #### LIPID, CMP #### [facility] [address] [address] [address] Lenard HernándezGFR-AF SWEDISH>60Normal>=60The [facility] HospitalComment on above:Performed By: #### LIPID, CMP #### [facility] [address] [address] [address] Lenard HernándezGFR-NON AF SWEDISH>60Normal>=60The [facility] HospitalComment on above:Performed By: #### LIPID, CMP #### [facility] [address] [address] [address] Lenard MaloneyGlobulin (S) [Mass/Vol]3.2 g/dLNormalThe [facility] HospitalComment on above:Performed By: #### LIPID, CMP #### [facility] [address] [place] [address] Dr. Lenard MaloneyGlucose [Mass/Vol]109 mg/dLCritically vcjj96-798Xxp [facility] HospitalComment on above:Performed By: #### LIPID, CMP #### [facility] [address] [place] [address] Dr. Lenard MaloneyPotassium [Moles/Vol]3.9 mmol/LNormal3.5-5.1The [facility] Comment on above:Performed By: #### LIPID, CMP #### [facility] [address] [place] [address] Dr. Lenard MaloneyProtein [Mass/Vol]7.7 g/dLNormal6.4-8.2[facility] Comment on above:Performed By: #### LIPID, CMP #### [facility] [address] [place] [address] Dr. Lenard MaloneySodium [Moles/Vol]136 mmol/WRldbwm650-936Ubw [facility] Comment on above:Performed By: #### LIPID, CMP #### [facility] [address] [place] [address] Dr. Lenard MaloneyUrea nitrogen [Mass/Vol]17.0 mg/dLNormal7.0-18.0The [facility] HospitalComment on above:Performed By: #### LIPID, CMP #### [facility] [address] [address] [address] Lenard MaloneyUrea nitrogen/Creatinine [Mass ratio]20.2 mg/mgTrinity Health SystemComment on above:Performed By: #### LIPID, CMP #### [facility] [address] [address] [address] Lenard MaloneyNo Panel Informationon 37-52-7291Lkykjksib ClinicNo Panel InformationFort [facility] Hospital Vital Signs Date TimeVital SignValuePerforming NwgstrrcpOomlvtof55-41-8611 15:40-0400Body ieixve691.8 cmMichael [employer] DO Work Phone: NOSaint [facility]'s Regional Health CenterFkzhffvpgo15-56-0268 15:40-0400Body mass index (BMI) [Ratio]28.7 kg/l1Hyndwxj [employer] DO Work Phone: NOSaint John's Regional Health CenterRgcxuekvqu81-90-0412 15:40-0400Body wsucsh47.72 kgMichael [employer] DO Work Phone: [facility] CenterKccuincptq18-04-5256 10:46-0500Blood Pressure LocationPatrick [employer] [facility]11-18-2024 10:46-0500Body psbqfsayqvl14.6 [degF]Francois PAYAN [facility]11-18-2024 10:46-0500Diastolic blood joyuusah96 mm[Hg]Francois PAYAN [facility]11-18-2024 10:46-0500Heart rate83 /minPatrick PAYAN [facility]11-18-2024 10:46-0500Respiratory rate17 /minPatrick PAYAN [facility]11-18-2024 10:46-0500Systolic blood aapljknu087 mm[Hg]Francois PAYAN [facility]06-15-2023 13:30-0400Body .8 cmPacc 2 Work Phone: [facility]06-15-2023 13:30-0400Body temperature 97.2 [degF]Pacc 2 Work Phone: [facility]06-15-2023 13:30-0400Body yfpalt99.74 kgPacc 2 Work Phone: [facility]06-15-2023 13:30-0400Diastolic blood mm[Hg]Pacc 2 Work Phone: [facility]06-15-2023 13:30-0400Heart rate57 /min Pacc 2 Work Phone: [facility]06-15-2023 13:30-0400Respiratory rate 16 /minPacc 2 Work Phone: [facility]06-15-2023 13:30-0074JrM5% (BldA) [Mass fraction]100 %Pacc 2 Work Phone: [facility]06-15-2023 13:30-0400Systolic blood hpdvfmyz740 mm[Hg]Pacc 2 Work Phone: [facility]11-02-2022 14:19-0400Body odsfox80.66 kgPhizayramaritza Snow DO Work Phone: [facility]11-02-2022 14:19-0400Diastolic blood pvvyfryc57 mm[Hg]Barber Abelis DO Work Phone: [facility]11-02-2022 14:19-0400Heart rate73 /min Barber Abelis DO Work Phone: [facility]11-02-2022 14:19-0400Systolic blood imdyjyvd948 mm[Hg]Barber Abelis DO Work Phone: [facility] Encounters Encounter DateEncounter TypeCare ProviderFacilityStart: 91-57-3428azwrfqtisr Anders JesusFacility: MilanStart: 03-06-2025 End: 40-22-0199ojkrccjnxoLkzxq M. DempseyFacility:[facility]ENTERtart: 03-06-2025 End: 24-38-0381Filmxfi encounter procedureWilly Kim [phone]-FfvlyHolzer Hospital Care Start: 02-12-2025 End: 03-99-4668Wxqyvh flowsheetKarla Lozano DO Work Phone: [facility] EyeStart: 02-12-2025 End: 42-37-8136Dsklpw flowsheetKarla Tomlin Zahlisabelle DO Work Phone: [facility] EyeStart: 02-12-2025 End: 87-19-1437Vsnyfk outpatient new 45 minutesJojoe Lozano DO Work Phone: [facility] EyeComment on above:Dry eyes (Primary Dx); Blepharitis of upper and lower eyelids of both eyes, unspecified type; PseudophakiaStart: 02-12-2025 End: 08-68-2663ifsulaexnqKXTDBWUW D ZAHLERNot AvailableStart: 02-03-2025 End: 42-54-1376kaewxngngxKpbfvh J CromleyFacility:FTMCStart: 01-18-2025 ambulatoryRobnitin Jesus DOFacility:[facility] Hospitaltart: 12-13-2024 End: 84-92-8644bgfcdxwxelUehrin J CromleyFacility: [place]Start: 12-13-2024 End: 45-91-4809Sxnihpr encounter Wojciech [facility] [place] Start: 11-28-2024 End: 56-02-5081Pidjlrb encounter procedureMichael T Dodge DO Work Phone: noms NB ORTHOComment on above:Primary osteoarthritis of both shoulders (Primary Dx); Acute pain of both shouldersStart: 11-28-2024 End: 18-37-3139czsbptcqmhXBOPTZA T POWERSNot AvailableStart: 11-28-2024 End: 78-03-3454rthhuffdboZXDLSMX T POWERSNot AvailableStart: 11-05-2024 ambulatoryBasem HaddadFacility:FM MilanStart: 09-13-2024 End: 97-65-3882Oiaplyhxt encounterPhillmaritza Snow DO Work Phone: Spine InstituteComment on above:Preperations for Procedure (Mychart)Start: 08-05-2024 End: 57-88-9064Ffyubprge encounterPhillip Isamar Snow DO Work Phone: spine InstituteComment on above:Preperations for Procedure CallStart: 08-02-2024 End: 76-30-4304Mslrnl OnlyPhillmaritza Snow DO Work Phone: spine InstituteComment on above:Lumbosacral neuritis (Primary Dx)Preperations for Procedure (Mychart)Start: 07-29-2024 End: 74-14-3554cadtdswysaJmydesa G Mendis DO Work Phone: Spqkp MedicineComment on above:Lumbosacral neuritis (Primary Dx)Start: 07-29-2024 End: 63-56-8688Rdaniockbdfp consultation with patientPhillmaritza Snow DO Work Phone: spine MedicineStart: 06-05-2024 End: 86-90-0064daqferljuvPCASMV [facility] [place] Start: 06-03-2024 End: 59-13-0779zbuzhtetcnLoqxcmq R WATERSFacility:EU BellevueStart: 06-03-2024 End: 91-25-7196Urggass encounter procedureFrancois PAYAN [facility] Jennifer start: 05-06-2024 End: 75-30-5556tefgrhklweArwzf Jame HaddadFacility:FTMCStart: 05-06-2024 End: 16-90-1863Illonbz encounter procedureBasehelen Ly [facility] Start: 04-16-2024 End: 04-47-5061Plqhbwelj encounterMaria D SAMANO Work Phone: NOM[facility] NE FMComment on above:Letter for School/Work Start: 03-27-2024 End: 83-86-2307cdwsreupxiAiqrczs R WATERSFacility:FTMCStart: 03-27-2024 End: 27-28-1773Gipvmqd encounter procedureFrancois PAYAN [facility] Start: 02-28-2024 End: 65-63-0703nglkosrchfOFDJCC [facility] [place] Start: 01-23-2024 End: 26-43-4640zanonmryuvLODTDMZ [facility] Centertart: 10-25-2023 End: 20-97-2201scjfgujdliMXRVRKG S LOUDENSLAGERFacility:[facility] Centertart: 10-25-2023 End: 11-60-1615Ugypwzv encounter procedureRanalla Carrasquilloger OD Work Phone: OphthalmologyComment on above:Keratoconjunctivitis sicca of both eyes not specified as Sjogren's (Primary Dx); 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 of both eyes; Pinguecula of left eye; Pterygium, right; Pseudophakia of both eyes; History of YAG laser capsulotomy of lens, leftStart: 60-19-5732drxziwqhazDvnkpzy G Mendis DO Work Phone: Spkng MedicineComment on above:Back PainStart: 06-27-2023 End: 02-96-9456zwzjesgsakAGRJOK [facility] [place] Start: 06-01-2023 End: 19-77-1965Ubewbml encounter procedureNegra Schaffer MD Work Phone: OphthalmologyComment on above:Left posterior capsular opacification (Primary Dx); Pseudophakia of both eyesStart: 03-13-2023 End: 63-61-5679Bkxrukt encounter procedurePajose PAYAN [facility] start: 03-08-2023 End: 34-93-7026Uzryurk encounter procedureStepshawn Jimenes OD Work Phone: OphthalmologyComment on above:S/P cataract extraction and insertion of intraocular lens, left (Primary Dx)Start: 63-76-8205MzovypRlkrr Haber MD Work Phone: OphthalmologyComment on above:Refill RequestStart: 12-29-2022 End: 12-04-7505Bwpjppc encounter procedureEye Measurements Work Phone: OphthalmologyComment on above:Combined forms of 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Start: 12-29-2022 End: 51-56-2306Ougllskaf to establishmentPacc [place] 2 Work Phone: [facility] FHCStart: 12-29-2022 End: 19-22-3649elfxyplrlqAoyx [place] 2 Work Phone: Pre AnesthesiaComment on above:Pre-op evaluation (Primary Dx); JOSE (obstructive sleep apnea); Uncomplicated asthma, unspecified asthma severity, unspecified whether persistent; Hyperlipidemia, unspecified hyperlipidemia type; Heart failure, unspecified HF chronicity, unspecified heart failure type (HCC); Essential (primary) hypertension; Generalized ischemic myocardial dysfunctionStart: 12-29-2022 End: 36-96-3295Agguietewxohk examination donePacc [place] 2 Work Phone: pre AnesthesiaStart: 06-42-5041Jvfqxnrjv encounter Negra Schaffer MD Work Phone: OphthalmologyComment on above:Schedule SurgeryStart: 12-15-2022 End: 59-67-1861Mpgxfbr encounter procedureNegra Schaffer MD Work Phone: OphthalmologyComment on above:Combined forms of 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 (Primary Dx); Myopia with astigmatism and presbyopia, bilateralStart: 11-08-2022 End: 62-69-1531wwobfajgeiMRPJAEV SOMMERSFacility:K2Udviu: 10-31-2022 End: 42-43-4934albeoljhlwTxalawv Isamar Snow DO Work Phone: Sprae MedicineComment on above:Chronic right-sided low back pain with right-sided sciatica (Primary Dx); Radiculopathy of lumbar regionStart: 10-31-2022 End: 91-14-7851Gwanhrbiltze consultation with Iman Snow DO Work Phone: [facility]ITALtart: 10-11-2022 End: 66-69-2434Sbletir encounter procedureMaria D PETERSEN [facility] Start: 53-92-5950Smqvuzdzp encounterPhillmaritza Snow DO Work Phone: spine InstituteComment on above:post injection follow upStart: 17-39-9357Jlktzgnfq encounterPhillmaritza Isamar Snow DO Work Phone: Spqrp InstituteComment on above:Preparations For Procedures (Pre-injection call)Start: 09-16-2022 End: 37-56-7916ubqouhzhcaNJ-C Maria D Petersen Work Phone: [facility] Work Phone: Start: 09-16-2022 End: 15-06-2049Dreoxeiaky RecurringPACorettaC Maria D Petersen Work Phone: [facility] Hospitaltart: 08-10-2022 End: 01-24-1790Vbicmznecg hospital visit by physician Sujata [facility] 2 (Istat/1.5) Work Phone: [facility] Radiology MRIComment on above:Chronic right-sided low back pain with right-sided sciatica [M54.41, G89.29]Start: 07-25-2022 End: 59-77-4981rbquskrgqgUucqwgh G Mendis DO Work Phone: Spucm MedicineComment on above:Chronic right-sided low back pain with right-sided sciatica (Primary Dx); Lumbosacral radiculitis; Radiculopathy of lumbar regionStart: 07-25-2022 End: 89-53-0144Svhzcfmjwazt consultation with Iman Snow DO Work Phone: [facility] FHCStart: 76-26-1845Adqeaxqsv encounter Barber Snow DO Work Phone: Spzuq MedicineComment on above:OrdersStart: 05-18-2022 End: 40-56-1069Wabdtax encounter procedureBarber Snow DO Work Phone: spine MedicineComment on above:Acute right-sided low back pain with right-sided sciatica (Primary Dx); Lumbosacral radiculitisStart: 49-28-0290ekwzurqpmhXUCDSEV TUCKERFacility:H1 Start: 10-22-2018 End: 91-56-1590Nmdndpr encounter procedureDEFAULT PHYSICIANFacility:[email or web address]]tart: 10-02-2018 End: 85-70-0734Etmewgp encounter procedurePROVIDER UNKNOWNFacility:MOMCStart: 09-20-2018 End: 73-33-1014Lyempgg encounter procedureDEFAULT PHYSICIANFacility:[email or web address]]tart: 09-12-2018 End: 61-21-2141Kcqwjxj encounter procedureDEFAULT PHYSICIANFacility:[facility] Procedures DateProcedureProcedure DetailPerforming ClinicianStart: 80-41-5955Zfusxco of percutaneous transluminal coronary angioplastyRobert J FaizanmleyStart: 11-28-2024 Arthrocentesis aspir&/inj major jt/bursa w/usMichael T Dodge DO Work Phone: Start: 87-86-9325Eeagf shoulder complete minimum 2 viewsMichael T Dodge DO Work Phone: Start: 63-63-5808Efql-cataract laser surgeryAisanjeev Schaffer MD Work Phone: Start: 71-97-9349Frkgcsi of cataract extractionStatus post cataract extractionAisanjeev Cristina MD Work Phone: Start: 50-95-3082JBO BIOMETRY W/ IOL CALC OU (BOTH EYES)Negra Schaffer MD Work Phone: Start: 76-52-6325Imsqx 1995 panel - Serum or PlasmaMr (Istat/1.5) Work Phone: Start: 47-14-2354Jak spinal canal lumbar w/o contrast materialPhillip G Mendis DO Work Phone: Start: 16-18-9556MusenjdajpxJbiyevi Sommers PA Work Phone: back structure, excluding neck (body structure)Francois PAYAN Bilateral cataracts (disorder)Francois PAYAN History of placement of stent in anterior descending branch of left coronary arteryHistory of placement of stent in LAD coronary arteryRobert CromleyPlacement of stent in coronary arteryPatrick ORA Plan of Treatment DateCare ActivityDetailAuthorStart: 02-28-8863Booti 1996 panel - Serum or Plasma Lipid ScreeningProtestant Deaconess Hospitaltart: 44-75-5023Ixrre panelLipid Screening [facility]: 55-90-3187TXKIH SCREENLIPID SCREENProtestant Deaconess Hospitaltart: 28-12-4423Bwgzxkazv for malignant neoplasm of colonNOMS HealthcareStart: 25-29-2505Yiqtq microalbumin profileProtestant Deaconess Hospitaltart: 37-51-3544DORGAFDU SCREENDIABETES SCREENProtestant Deaconess Hospitaltart: 86-33-3661Azjqwkvp ScreeningDiabetes ScreeningTroy ClinicStart: 66-07-1807Enqsigtfv vaccinationInfluenza Vaccine (#1)NOM HealthcareStart: 02-12-2025 End: 89-45-8068Aicmogf encounter /30/2025 1:30 PM EDT Office Visit [facility] [address] [place] [id number] Karla Lozano, DO [address] [place] [address] ArrivedFranklin County Memorial Hospital EyeComment on above:ArrivedStart: 11-13-2024 End: 52-92-4675qmzmjmcnji35/30/2025 4:00 PM EDT [facility] Spine Medicine [address] [place] [address] Barber Snow DO [address] [place] [address] 2-4 weeksSpine MedicineComment on above:2-4 weeksStart: 10-10-2024 End: 60-24-8236Kpakmurrp to same day surgery inswaw6410/10/2024 7:30 AM EDT - 10/10/2024 8:05 AM EDT Surgery Ambulatory Surgery [address] [place] [address] Barber Snow DO [address] [place] [address] INJECTION ANESTHETIC AGENT/STEROID TRANSFORAMINAL EPIDURAL LUMBAR BILATERAL W/IMAGE GUIDANCE FLUORO OR CTAmbulatory SurgeryComment on above:INJECTION ANESTHETIC AGENT/STEROID TRANSFORAMINAL EPIDURAL LUMBAR BILATERAL W/IMAGE GUIDANCE FLUOROOR CTStart: 10-10-2024 End: 60-38-7197Tgo anes&/strd w/img tfrml edrl lmbr/sac 1 lvlINJECTION ANESTHETIC AGENT/STEROID TRANSFORAMINAL EPIDURAL LUMBAR BILATERAL W/IMAGE GUIDANCE FLUOROOR CT Lumbosacral neuritis 10/10/2024 7:30 AM [facility] Start: 06-80-3431Hpqhbsujxi hospital visit by vytkdghbw82/27/2025 7:30 AM EDT Hospital Encounter Ambulatory Surgery [address] [place] [address] Barber Snow, DO [address] [place] [address] Lumbosacral neuritis [M54.17]Ambulatory SurgeryComment on above:Lumbosacral neuritis [M54.17]Start: 09-06-2024 End: 40-08-0218darafazbue83/21/2025 4:20 PM [facility] Spine Medicine [address] [place] [address] Barber Snow, DO [address] [place] [address] 2-4 weeksSpine MedicineComment on above:2-4 weeksStart: 08-15-2024 End: 99-19-7058Vzupsvagh to same day surgery fixwmc7008/15/2024 9:39 AM EST - 08/15/2024 10:14 AM EST Surgery Ambulatory Surgery [address] [place] [address] Barber Snow, DO [address] [place] [address] INJECTION ANESTHETIC AGENT/STEROID TRANSFORAMINAL EPIDURAL LUMBAR BILATERAL W/IMAGE GUIDANCE FLUORO OR CTAmbulatory SurgeryComment on above:INJECTION ANESTHETIC AGENT/STEROID TRANSFORAMINAL EPIDURAL LUMBAR BILATERAL W/IMAGE GUIDANCE FLUOROOR CTStart: 08-15-2024 End: 71-47-3477Fcj anes&/strd w/img tfrml edrl lmbr/sac 1 lvlINJECTION ANESTHETIC AGENT/STEROID TRANSFORAMINAL EPIDURAL LUMBAR BILATERAL W/IMAGE GUIDANCE FLUOROOR CT Lumbosacral neuritis 08/15/2024 9:[address] [facility] Start: 37-77-9101Xfgdjxhjkv hospital visit by /30/2025 9:39 AM [facility] Encounter Ambulatory Surgery [address] [place] [address] Barber Snow, DO [address] [place] [address] Lumbosacral neuritis [M54.17]Ambulatory SurgeryComment on above:Lumbosacral neuritis [M54.17]Start: 04-03-5866Iifsw-19 Vaccine ()Covid-19 Vaccine ()[facility]: 62-87-9956Kcdyqqcwp vaccinationProtestant Deaconess Hospitaltart: 34-11-3958NQ CONTROLLED (<130/80)BP CONTROLLED (<130/80)[facility]: 13-04-8177MA CONTROLLED (<130/80)BP CONTROLLED (<130/80)[facility]: 12-15-2023 End: 92-97-4850ZUD BIOMETRY W/ IOL CALC OU (BOTH EYES)IOL BIOMETRY W/ IOL CALC OU (BOTH EYES) OPHT Imaging Routine Combined forms of age-related cataractof both eyes Expected: 12/15/2023, Expires: 06/07/2024[facility] Work Phone: Comment on above:Expected: 12/15/2023, Expires: 06/07/2024Start: 11-45-2792Wvzkasboer Health ScreeningBehavioral Health ScreeningProtestant Deaconess Hospitaltart: 13-14-6357Ywfcwnkyhf AssessmentDepression AssessmentProtestant Deaconess Hospitaltart: 80-45-3344Ygqqc-19 Vaccine () Covid-19 Vaccine ()[facility]: 92-47-2856Idzfaoiwn vaccinationProtestant Deaconess Hospitaltart: 73-10-1281YZNQEYCW VACCINE (2 of 2)SHINGRIX VACCINE (2 of 2)[facility]: 84-43-0851DDJUKMGRGK ASSESSMENTDEPRESSION ASSESSMENTProtestant Deaconess Hospitaltart: 50-68-4418Lajcngbnt vaccinationINFLUENZA (#1) [facility]: 40-96-2982DZBLJHUXXX ASSESSMENTDEPRESSION ASSESSMENT [facility]: 93-42-1339HMDWU-19 VACCINE (4 - Booster for Moderna series)COVID-19 VACCINE (4 - Booster for Moderna series)[facility]: 18-97-0269TYX Vaccine (1 - 1-dose 60+ series)RSV Vaccine (1 - 1-dose 60+ series) [facility]: 46-92-2936KZD Vaccine (1 - Risk 60-74 years 1-dose series)RSV Vaccine (1 - Risk 60-74 years 1-dose series)[facility]: 35-11-8521Ookxjlulm for malignant neoplasm of colonProtestant Deaconess Hospitaltart: 81-25-3038MMRACFFD CANCER SCREENING DISCUSSIONPROSTATE CANCER SCREENING DISCUSSIONProtestant Deaconess Hospitaltart: 16-16-0942Ybiyxbhx specific antigen measurement Prostate Cancer Screening DiscussionProtestant Deaconess Hospitaltart: 55-85-0592FMSBXLHA VACCINE (1 of 2)SHINGRIX VACCINE (1 of 2)[facility]: 2006 COLOGUARD (FIT-DNA)COLOGUARD (FIT-DNA)[facility]: 2006 ColonoscopyCOLONOSCOPYProtestant Deaconess Hospitaltart: 80-53-4702EKOHFZWYDN CANCER SCREENINGCOLORECTAL CANCER SCREENINGProtestant Deaconess Hospitaltart: 42-31-1613VN COLONOGRAPHYCT COLONOGRAPHYProtestant Deaconess Hospitaltart: 32-05-2717HXLIXTXZ SCREEN DIABETES SCREENProtestant Deaconess Hospitaltart: 71-01-8002ETKHM OCCULT BLOODFECAL OCCULT BLOODProtestant Deaconess Hospitaltart: 02-64-0468Dakgveedw for malignant neoplasm of colon [facility]: 27-66-1674JUCYLNFRYLEGOLJXFCZQMJFJHFSeblsrots Clinic Start: 00-09-3470VKXEH SCREENLIPID SCREENProtestant Deaconess Hospitaltart: 37-37-2440Vclme microalbumin profileDTAP,TDAP,TD (1 - Tdap)[facility]: 1979 ANNUAL PCP TEAM CHRONIC DISEASE VISITANNUAL PCP TEAM CHRONIC DISEASE VISIT [facility]: 57-41-0105Seaqytp ScreeningAnxiety ScreeningProtestant Deaconess Hospitaltart: 62-95-6402EA Controlled (<130/80)BP Controlled (<130/80)[facility]: 83-32-3255Wuzwsgkelw ScreeningDepression ScreeningFort [facility] Hospital Start: 46-28-3379HWCKQGFNS C SCREENINGHEPATITIS C SCREENINGFort [facility] Hospital Start: 74-92-0238Hgrwaqgox C screeningHepatitis C ScreeningFort Hamilton Hospital Start: 65-13-2975FZS SCREENINGHIV SCREENINGProtestant Deaconess Hospitaltart: 00-62-0402YJW screeningHIV ScreeningProtestant Deaconess Hospitaltart: 94-81-5437AGVFXLHSFAODLRYBTNTF [facility]: 67-03-7717IUMBIAPXLLHB (1 - PCV)PNEUMOCOCCAL (1 - PCV) [facility]: 76-77-7836Ksodinwmh for malignant neoplasm of colonSaint [facility] End: 77-59-3873XWUZVSY TOPOGRAPHY PENTACAM OU (BOTH EYES)CORNEAL TOPOGRAPHY PENTACAM OU (BOTH EYES) OPHT Imaging Routine Combined forms of age-related cataract of both eyes 1 Occurrences starting 12/08/2022 until 05/31/2024 [facility] Work Phone: Comment on above:1 Occurrences starting 12/08/2022 until 05/31/2024 End: 72-67-4732MRI MACULA CIRRUS OU (BOTH EYES)OCT MACULA CIRRUS OU (BOTH EYES) OPHT Imaging Routine Combined forms of age-related cataract of both eyes 1 [facility]20[facility] Work Phone: Comment on above:1 Occurrences starting 12/08/2022 until 05/31/2024SPINE INTERVENTION PROCEDURESPINE INTERVENTION PROCEDURE Procedures Routine Lumbosacral neuritis Ordered: 07/30/2024[facility] Work Phone: Comment on above:Ordered: 07/30/2024XR Shoulder - left 2 ViewsXR shoulder 2+ views left Imaging Routine Acute pain of both shoulders 11/28/2024 1:01 PM EDTNOOK HealthcareXR Shoulder - right 2 ViewsXR shoulder 2+ views right Imaging Routine Acute pain of both shoulders 11/28/2024 1:01 PM EDT [facility] Work Phone: [facility] Immunizations Immunization DateImmunizationNotesCare BrlwdkrqJvnzoudv08-40-2880offjqccmn virus vaccine, unspecified formulationKenroymoises Lozano Work Phone: [phone]-RtwtuMemorial Health [facility] Cuaq17-90-8705 zoster vaccine recombinantWilly Kim [phone]-IrmusMemorial Health [facility] Pcyx58-26-9277 pneumococcal (PCV20) vaccine, 20 valent (PREVNAR 20)Pacc 2 Work Phone: [facility] HospitalBouukr23-65-0183swnvmz vaccine recombinant Pacc 2 Work Phone: [facility] HospitalBkotgi85-65-6644iqshusewn virus vaccine, unspecified formulationPaHelmedix [facility]11-15-2022influenza, injectable, quadrivalent, preservative freePacc 2 Work Phone: [facility] HospitalJhnvmx54-27-6979CRPS-WvR-1 (COVID-19) mRNAMUL.ORD!j04956Nedwjzq WATERS [facility]10-26-2021SARS-CoV-2 (COVID-19) mRNA-1273 [employer] [facility] CincinnatiComment on above:Result Comment: 2023-03-13: DYB2619-28-7575MYFP-ReD-0 (COVID-19) mRNA-1273 [employer] [facility]04-05-2021SARS-CoV-2 (COVID-19) mRNA-1273 [employer] [facility]11-08-2018influenza virus vaccine, unspecified formulationPaHelmedix [facility]healthue11-08-2018influenza, injectable, quadrivalent, preservative freePacc 2 Work Phone: [facility] HospitalMcgivj73-96-1357tbvnxqx toxoid, reduced diphtheria toxoid, and acellular pertussis vaccine, adsorbedPacc 2 Work Phone: [facility] HospitalBvpirc05-28-5479uyrhrfewu virus vaccine, unspecified formulationPatricMasterson Industries [facility] Ohiohealthue01-05-2017influenza, injectable, quadrivalent, contains preservativePacc 2 Work Phone: [facility] Payers DatePayer CategoryPayerPolicy [id number] Health [id number]-zvj [id number] [employer] Blue Shield [id number]09.57353-31-7277Qpzgmaq35-05-6614Eyszljn Health [id number] 2.0.1.696053.3.57[id number] 2.0.1.124517.3.57[id number] 2.840.1.906773.3.579.[id number] 2.0.1.180557.3.579.[id number] 2.16840.1.218399.3.579.2.08314-58-7437Jhfhidl8284384 2.840.1.918641.3.579.[id number] 2.840.1.120438.3.57[id number] 2.0.1.596346.3.57[id number] 2.0.1.151665.3.57[id number] 2..1.806910.3.57[id number] 2..1.203630.3.579.2.89048-17-8410Ubsmerb43795866 2.840.1.872777.3.579.2.12324-88-3153Devlfrh67224036 2.0.1.291583.3.579.2.[id number] 2..1.812815.3.579.2.152721-67-5876Yauloxw8461922 2.0.1.712435.3.579.2.065896-76-8098Nobiiaj9300631 2..1.553094.3.579.2.952443-81-1324Tzlyqhc3748055 2.840.1.638702.3.579.2.233754-76-9448Uhmtpdh09708704 2.840.1.514489.3.579.2.76684-69-9352Fxvpcus34611877 2..1.211295.3.579.2.90014-24-0790Mgss-hsm12861309394-46-0795Vbcrprd [id number] 253t9476-577u-4l28-m1rz-[id number] 15z95a10-8bi4-2y42-w7r4-o262h9o02865HmtzacvUNO Netwk [id number] dxr587at-2ra9-581v-[id number] 2.16.840.1.236134.3.579.2.531 Social History DateTypeDetailFacilityStart: 05-18-2022 End: 95-35-7367Wqjrgix smoking status NHISEx-smokerProtestant Deaconess Hospitaltart: 07-17-1986 End: 71-89-5475Lksbpbm of tobacco useCurrent smokerProtestant Deaconess Hospitaltart: 07-17-1986 End: 95-33-8554Ofibnat of tobacco useCigarette SmokerProtestant Deaconess Hospitaltart: 05-18-2022 End: 45-50-1017Mttqocyqci smoked current (pack per day) - Oafrsyba8Wxtznkoee ClinicStart: 05-18-2022 End: 62-06-9766Cfzxdir use and exposureSmokeless tobacco non-userProtestant Deaconess Hospitaltart: 05-18-2022 End: 63-68-7214Iuqzuwl intakeCurrent drinker of alcohol (finding)[facility]: 81-80-1362Agf Assigned At BirthNot on fileProtestant Deaconess Hospitaltart: 05-08-2022 End: 01-43-7032Ooucrqel to SARS-CoV-2 (event)Not sureFort Hamilton HospitalTobaintegris canadian valley hospital [facility] Past, CigarettesMercy Health Fairfield HospitalTobacc smoking statusDetwiler Memorial Hospitaltart: 03-08-2023 End: 91-78-8686Sqq [facility]igned At [facility]: 35-19-7794Zye [facility]igned At [facility]: 12-29-2022 End: 97-77-0108Uamqflg intakeEx-drinker (finding)[facility]: 18-77-6450Fwrfdas Comment5 drinks per week, sometimes moreKettering Health Main Campus Depression Screening Gxzmzkfivr6Hksnejxie ClinicStart: 07-98-3109Wivzfis smoking status NHISNever smoked tobaccoNOMS HealthcareStart: 09-12-2023 End: 06-63-3846Fjyythrxq beverage intakeLifetime non-drinker (finding)[facility] HealthcareStart: 18-83-2516GybZudd (finding)[facility] Medical Equipment Procedure CodeEquipment CodeEquipment Original TextEquipment IdentifierDates [employer]or[employer] Iol [id number]: 11-29-0479Mibnyhm on above:Description: -1.41[employer]or[employer] Iol +[id number] Start: 77-28-2821Dkoswvj on above:Description: -0.20 Functional Status IavpDjsctieanbTycohgFmfipidi67-06-1418Spcrqbqfxy StatusN/AExec[facility]08-28-2023Functional StatusN/AExec[facility]04-24-2015Are you deaf, or do you have serious difficulty hearingYes 11/07/2014 2:33 PM EDT Ashley Macias LPN YesFort Hamilton HospitalTejnbg11-12-0830Ccs you blind, or do you have serious difficulty seeing, even when wearing glassesNo 11/07/2014 2:33 PM EDT Ashley Macias LPN [facility]04-24-2015Do you have serious difficulty walking or climbing stairsNo 11/07/2014 2:33 PM EDT Ashley Macias LPN [facility] 04-35-4764Ht you have difficulty dressing or bathingYes 11/07/2014 2:33 PM EDT Ashley Macias LPN [facility]syepl32-85-2714Kaahvbn of a physical, mental, or emotional condition, do you have difficulty doing errands alone such as visiting a physician's office or shoppingYes 11/07/2014 2:33 PM EDT Ashley Macias LPN [facility] Mental Status FpzkEzjdkgmlheLrpjbqPjxmwump06-53-1043Kuxvnsn of a physical, mental, or emotional condition, do you have serious difficulty concentrating, remembering, or making decisionsNo 11/07/2014 2:33 PM EDT Ashley Macias LPN [facility] Clinical Notes 05-18-2022 to 03-06-2025 Note Date & BycdRbtvIusyfdkf52-43-3018 Hospital Discharge instructions Patient Education 03/06/2025 10:11:59 Upper Respiratory Infection, Adult Upper Respiratory Infection, Adult An upper respiratory infection (URI) is a common viral infection of the nose, throat, and upper airpassages that lead to the lungs. The most common type of URI is the common cold. URIs usually get better on their own, without medical treatment. What are the causes? A URI is caused by a virus. You may catch a virus by: Breathing in droplets from an infected person's cough or sneeze. Touching something that has been exposed to the virus (is contaminated) and then touching your mouth, nose, or eyes. What increases the risk? You are more likely to get a URI if: You are very young or very old. You have close contact with others, such as at work, school, or a health care facility. You smoke. You have long-term (chronic) heart or lung disease. You have a weakened disease-fighting system (immune system). You have nasal allergies or asthma. You are experiencing a lot of stress. You have poor nutrition. What are the signs or symptoms? A URI usually involves some of the following symptoms: Runny or stuffy (congested) nose. Cough. Sneezing. Sore throat. Headache. Fatigue. Fever. Loss of appetite. Pain in your forehead, behind your eyes, and over your cheekbones (sinus pain). Muscle aches. Redness or irritation of the eyes. Pressure in the ears or face. How is this diagnosed? This condition may be diagnosed based on your medical history and symptoms, and a physical exam. Your health care provider may use a swab to take a mucus sample from your nose (nasal swab). This sample can be tested to determine what virus is causing the illness. How is this treated? URIs usually get better on their own within 7 10 days. Medicines cannot cure URIs, but your health care provider may recommend certain medicines to help relieve symptoms, such as: Ymyv-dcx-zxgikuw cold medicines. Cough suppressants. Coughing is a type of defense against infection that helps to clear the respiratory system, so take these medicines only as recommended by your health care provider. Fever-reducing medicines. Follow these instructions at home: Activity Rest as needed. If you have a fever, stay home from work or school until your fever is gone or until your health care provider says your URI cannot spread to other people (is no longer contagious). Your health care provider may have you wear a face mask to prevent your infection from spreading. Relieving symptoms Gargle with a mixture of salt and water 3 4 times a day or as needed. To make salt water, completely dissolve 1 tsp (3 6 g) of salt in 1 cup (237 mL) of warm water. Use a cool-mist humidifier to add moisture to the air. This can help you breathe more easily. Eating and drinking Drink enough fluid to keep your urine pale yellow. Eat soups and other clear broths. General instructions Take dups-fag-prwqiue and prescription medicines only as told by your health care provider. These include cold medicines, fever reducers, and cough suppressants. Do not use any products that contain nicotine or tobacco. These products include cigarettes, chewing tobacco, and vaping devices, such as e-cigarettes. If you need help quitting, ask your health careprovider. Stay away from secondhand smoke. Stay up to date on all immunizations, including the yearly (annual) flu vaccine. Keep all follow-up visits. This is important. How to prevent the spread of infection to others URIs can be contagious. To prevent the infection from spreading: Wash your hands with soap and water for at least 20 seconds. If soap and water are not available, use hand sports management professor. Avoid touching your mouth, face, eyes, or nose. Cough or sneeze into a tissue or your sleeve or elbow instead of into your hand or into the air. Contact a health care provider if: You are getting worse instead of better. You have a fever or chills. Your mucus is brown or red. You have yellow or brown discharge coming from your nose. You have pain in your face, especially when you bend forward. You have swollen neck glands. You have pain while swallowing. You have white areas in the back of your throat. Get help right away if: You have shortness of breath that gets worse. You have severe or persistent: ?Headache. ?Ear pain. ?Sinus pain. ?Chest pain. You have chronic lung disease along with any of the following: ?Making high-pitched whistling sounds when you breathe, most often when you breathe out (wheezing). ?Prolonged cough (more than 14 days). ?Coughing up blood. ?A change in your usual mucus. You have a stiff neck. You have changes in your: ?Vision. ?Hearing. ?Thinking. ?Mood. These symptoms may be an emergency. Get help right away. Call 911. Do not wait to see if the symptoms will go away. Do not drive yourself to the hospital. Summary An upper respiratory infection (URI) is a common infection of the nose, throat, and upper air passages that lead to the lungs. A URI is caused by a virus. URIs usually get better on their own within 7 10 days. Medicines cannot cure URIs, but your health care provider may recommend certain medicines to help relieve symptoms. This information is not intended to replace advice given to you by your health care provider. Make sure you discuss any questions you have with your health care provider. Document Revised: 02/02/2022 Document Reviewed: 02/02/2022 [employer] Patient Education 2023 [employer]. Follow Up Care 03/06/2025 08:09:24 With:Edin ARCHULETA, INÉS Fontana, PED Address: [address] [place] [address] When: Unknown [facility] 08-21-2025 NotePatient Education Infectious Disease Upper Respiratory Infection, Adult An upper respiratory infection (URI) is a common viral infection of the nose, throat, and upper airpassages that lead to the lungs. The most common type of URI is the common cold. URIs usually get better on their own, without medical treatment. What are the causes? A URI is caused by a virus. You may catch a virus by: ??? Breathing in droplets from an infected person's cough or sneeze. ??? Touching something that has been exposed to the virus (is contaminated) and then touching your mouth, nose, or eyes. What increases the risk? You are more likely to get a URI if: ??? You are very young or very old. ??? You have close contact with others, such as at work, school, or a health care facility. ??? You smoke. ??? You have long-term (chronic) heart or lung disease. ??? You have a weakened disease-fighting system (immune system). ??? You have nasal allergies or asthma. ??? You are experiencing a lot of stress. ??? You have poor nutrition. What are the signs or symptoms? A URI usually involves some of the following symptoms: ??? Runny or stuffy (congested) nose. ??? Cough. ??? Sneezing. ??? Sore throat. ??? Headache. ??? Fatigue. ??? Fever. ??? Loss of appetite. ??? Pain in your forehead, behind your eyes, and over your cheekbones (sinus pain). ??? Muscle aches. ??? Redness or irritation of the eyes. ??? Pressure in the ears or face. How is this diagnosed? This condition may be diagnosed based on your medical history and symptoms, and a physical exam. Your health care provider may use a swab to take a mucus sample from your nose (nasal swab). This sample can be tested to determine what virus is causing the illness. How is this treated? URIs usually get better on their own within 7?10 days. Medicines cannot cure URIs, but your health care provider may recommend certain medicines to help relieve symptoms, such as: ??? Dnep-eei-ulisjop cold medicines. ??? Cough suppressants. Coughing is a type of defense against infection that helps to clear the respiratory system, so take these medicines only as recommended by your health care provider. ??? Fever-reducing medicines. Follow these instructions at home: Activity ??? Rest as needed. ??? If you have a fever, stay home from work or school until your fever is gone or until your health care provider says your URI cannot spread to other people (is no longer contagious). Your health care provider may have you wear a face mask to prevent your infection from spreading. Relieving symptoms ??? Gargle with a mixture of salt and water 3?4 times a day or as needed. To make salt water, completely dissolve ??1 tsp (3?6 g) of salt in 1 cup (237 mL) of warm water. ??? Use a cool-mist humidifier to add moisture to the air. This can help you breathe more easily. Eating and drinking ??? Drink enough fluid to keep your urine pale yellow. ??? Eat soups and other clear broths. General instructions ??? Take jxlv-wdr-mkdgfsj and prescription medicines only as told by your health care provider. These include cold medicines, fever reducers, and cough suppressants. ??? Do not use any products that contain nicotine or tobacco. These products include cigarettes, chewing tobacco, and vaping devices, such as e-cigarettes. If you need help quitting, ask your health care provider. ??? Stay away from secondhand smoke. ??? Stay up to date on all immunizations, including the yearly (annual) flu vaccine. ??? Keep all follow-up visits. This is important. How to prevent the spread of infection to others URIs can be contagious. To prevent the infection from spreading: ??? Wash your hands with soap and water for at least 20 seconds. If soap and water are not available, use hand sports management professor. ??? Avoid touching your mouth, face, eyes, or nose. ??? Cough or sneeze into a tissue or your sleeve or elbow instead of into your hand or into the air. Contact a health care provider if: ??? You are getting worse instead of better. ??? You have a fever or chills. ??? Your mucus is brown or red. ??? You have yellow or brown discharge coming from your nose. ??? You have pain in your face, especially when you bend forward. ??? You have swollen neck glands. ??? You have pain while swallowing. ??? You have white areas in the back of your throat. Get help right away if: ??? You have shortness of breath that gets worse. ??? You have severe or persistent: ? Headache. ? Ear pain. ? Sinus pain. ? Chest pain. ??? You have chronic lung disease along with any of the following: ? Making high-pitched whistling sounds when you breathe, most often when you breathe out (wheezing). ? Prolonged cough (more than 14 days). ? Coughing up blood. ? A change in your usual mucus. ??? You have a stiff neck. ? (more content not included)...[facility]07-30-2025 History of Present illness Narrative* Karla Lozano DO - 02/12/2025 1:30 PM EDT Images from the original note were not included. Assessment/Plan Diagnoses and all orders for this visit: Dry eyes - Dry Eyes OU -- Environmental changes to minimize dryness and exposure and the use of artificial tears were recommended. Blepharitis of upper and lower eyelids of both eyes, unspecified type - Blepharitis, posterior type OU - The patient exhibits inspissated meibomian glands. Warm compresses, lid massage and lid scrubs were recommended. Pseudophakia - both eyes (OU): - 01/2023 - Dr. Schaffer ([facility]) - Discussed with Mr. Thacker outcome and continued need for spectacle correction for some tasks. His Rx was performed and available to him if he wishes. 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 documented in this encounterSaint Louis University Health Science [id number] NotePatient Education Materials Follows:Disease Insect Bite, Adult An insect bite can make your skin red, itchy, and swollen. An insect bite is different from an insect sting, which happens when an insect injects poison (venom) into the skin. Some insects can spread disease to people through a bite. However, most insect bites do not lead todisease and are not serious. What are the causes? Insects may bite for a variety of reasons, including: ? Hunger. ? To defend themselves. Insects that bite include: ? Spiders. ? Mosquitoes and flies. ? Ticks and fleas. ? Ants. ? Kissing bugs. ? Chiggers. What are the signs or symptoms? In many cases, symptoms last for 2?4 days. However, itching can last up to 10 days. Symptoms include: ? Itching or pain in the bite area. ? Redness and swelling in the bite area. ? An open wound (skin ulcer). In rare cases, a person may have a severe allergic reaction (anaphylactic reaction) to a bite. Symptoms of an anaphylactic reaction may include: ? Feeling carbon grinder the face (flushed). This may include redness. ? Itchy, red, swollen areas of skin (hives). ? Swelling of the eyes, lips, face, mouth, tongue, or throat. ? Wheezing or difficulty breathing, speaking, or swallowing. ? Dizziness, light-headedness, or fainting. ? Abdominal symptoms like cramping, nausea, vomiting, or diarrhea. How is this diagnosed? This condition is usually diagnosed based on symptoms and a physical exam. During the exam, your health care provider will look at the bite and ask you what kind of insect bit you. How is this treated? Most insect bites are not serious. Symptoms often go away on their own and treatment is not usuallyneeded. When treatment is recommended, it may include: ? Applying ice to the affected area. ? Applying steroid or other anti-itch creams, like calamine lotion, to the bite area. ? Medicines called antihistamines to reduce itching. ? You may also need: ? A tetanus shot if you are not up to date. ? Antibiotic cream or an oral antibiotic if the bite becomes infected (this is uncommon). Follow these instructions at home: Bite area care ? Do not scratch the bite area. It may help to cover the bite area with a bandage or close-fitting clothing. ? Keep the bite area clean and dry. Wash it every day with soap and water as told by your health care provider. ? Check the bite area every day for signs of infection. Check for: ? More redness, swelling, or pain. ? Fluid or blood. ? Warmth. ? Pus or a bad smell. Managing pain, itching, and swelling ? You may apply cortisone cream, calamine lotion, or a paste made of baking soda and water to the bite area as told by your health care provider. ? If directed, put ice on the bite area. To do this: ? Put ice in a plastic bag. ? Place a towel between your skin and the bag. ? Leave the ice on for 20 minutes, 2?3 times a day. ? If your skin turns bright red, remove the ice right away to prevent skin damage. The risk of skindamage is higher if you cannot feel pain, heat, or cold. General instructions ? Apply or take epfn-mtv-rzzhnsk and prescription medicine only as told by your health care provider. ? If you were prescribed antibiotics, take or apply them as told by your health care provider. Do not stop using the antibiotic even if you start to feel better. How is this prevented? To help reduce your risk of insect bites: ? When you are outdoors, wear clothing that covers your arms and legs. This is especially importantin the shellfish farming supervisor and evening. ? Use insect repellent. The best insect repellents contain DEET, picaridin, oil of lemon eucalyptus(OLE), or QY6373. ? Consider spraying your clothing with a pesticide called permethrin. Permethrin helps prevent insect bites. It works for several weeks and for up to 5?6 clothing washes. Do not apply permethrin directly to the skin. ? If your home windows do not have screens, consider installing them. ? If you will be sleeping in an area where there are mosquitoes, consider covering your sleeping area with a mosquito net. Contact a health care provider if: ? Your bite area has signs of infection, such as: ? More redness, swelling, or pain. ? Fluid or blood. ? Warmth. ? Pus or a bad smell. ? You have a fever. Get help right away if: ? You have a rash. ? You have muscle or joint pain. ? You feel unusually tired or weak. ? You have neck pain or a headache. ? You develop symptoms of an anaphylactic reaction. These may include: ? Swelling of the eyes, lips, face, mouth, tongue, or throat. ? Flushed skin or hives. ? Wheezing. ? Difficulty breathing, speaking, or swallowing. ? Dizziness, light-headedness, or fainting. ? Abdominal pain, cramping, vomiting, or diarrhea. These symptoms may be an emergency. Get help right away. Call 911. ? Do not wait to see if the symptoms will go away. (more content not included)...[facility] [id number] History of Present illness Narrative* Felicitas Rush MA - 11/28/2024 3:30 PM EDTAssociated Order(s): L Inj/Asp: bilateral glenohumeral Post-Procedure Diagnose(s): Primary osteoarthritis of both shoulders L Inj/Asp: bilateral glenohumeral on 11/28/2024 4:00 PM Indications: pain Details: 25 G needle, ultrasound-guided Medications (Right): 6 mg betamethasone acetate-betamethasone sodium phosphate 6 (3-3) MG/ML Medications (Left): 6 mg betamethasone acetate-betamethasone sodium phosphate 6 (3-3) MG/ML Consent was given by the patient. * Daisha García - 11/28/2024 3:30 PM EDT Darius Thacker is a 64 y.o. male presents with chief complaint of bilateral shoulder pain and stiffness, right worse than left. HPI: Jb is here for his bilateral shoulder impingement with rotator cuff tendinopathy. He does have some arthritic changes. He has significant articular space left. He still continues to have pain. He has had injections in the past which were helpful. He requests these today. He has night disruption.He has pain with overhead and rotatory motion. We have discussed alternative options. SUBJECTIVE: MEDICATIONS: Current Outpatient Medications Medication Instructions aspirin 81 mg, Daily atorvastatin (Lipitor) 80 MG tablet azithromycin (Zithromax) 250 MG tablet Take 2 tabs PO x 1 day then 1 tab PO daily x 4 days dapagliflozin (FARXIGA) 10 mg, Daily RT desvenlafaxine (Pristiq) 50 MG 24 hr tablet 1 tablet, Every morning gemfibrozil (LOPID) 600 mg, 2 times daily lisinopril 10 mg, Daily RT metoprolol succinate XL (TOPROL-XL) 25 mg, Daily omeprazole (PRILOSEC) 40 mg rosuvastatin (CRESTOR) 40 mg, Nightly sildenafil (Revatio) 20 MG tablet spironolactone (ALDACTONE) 12.5 mg, Oral, Daily RT ALLERGIES: Allergies Allergen Reactions Atorvastatin Other Reaction(s): Not available SURGICAL HISTORY: Past Surgical History: Procedure Laterality Date CARDIAC SURGERY 2023 CARDIAC SURGERY 2014 Stent EYE SURGERY Bilateral FAMILY HISTORY: No family history on file. SOCIAL HISTORY: Social History Tobacco Use Smoking status: Never Smokeless tobacco: Never Substance Use Topics Alcohol use: Never Drug use: Never Depression: Not at risk (07/29/2024) Received from [facility] PHQ-2 PHQ-2 score: 0 REVIEW OF SYMPTOMS: The review of systems, history and current medications list are all reviewed today. OBJECTIVE: Visit Vitals Ht 5' 10 Wt 200 lb BMI 28.70 kg/m Smoking Status Never BSA 2.12 m Physical Exam On physical exam, he is alert and oriented. Vital signs are stable. The shoulders have mild prominence of the A/C joint. There is no sign of rash or infection. Cuff tendinopathy and impingement tests are moderately positive, right worse than left. Cuff strength is intact without sign of full thickness tear. His active range of motion is intact without adhesive or instability component. X-rays are reviewed, two views AP and Y saved to the permanent record of the bilateral shoulders show moderate hypertrophic A/C joint. There is a type II acromion. There is no fracture, dislocation, tumor or infection seen. ASSESSMENT AND PLAN: Assessment/Plan Bilateral shoulder impingement syndrome; rotator cuff tendinopathy; questionable partial tear. A/C joint osteoarthritis. The nature of the findings were discussed at length. We discussed ice, Tylenol and topicals, home exercise program. We discussed the role of cortisone injections up to three per year. Ultimately if not improving or having recalcitrant pain or more frequency, we discussed the role of unilateral MRI and consideration of arthroscopic treatment. He seems to be doing well with the injections provided in the past. Per his request, 1 cc of cortisone (3 mg of Betamethasone sodium phosphate with 3 mg ofBetamethasone acetate) and 1 cc of 1% plain Lidocaine was injected to the bilateral shoulders. Limited exam shows tendinopathy. A/C joint is hypertrophic. Biceps tendon is intact. Needle localizationand image captured and saved to the permanent record. The right seems to be more inflamed with the rotator cuff complex as compared to the left. Image captured and saved to the permanent record. The patient tolerated both injections well. We will continue with conservative care and follow up at this point will be on a p.r.n. basis. He voices verbal understanding. He is discharged in stable condition. The patient was seen and examined. From the time of check in, nurse triage, vital signs, x-ray, x-ray interpretation, review of systems, comprehensive history and physical exam as well as setting up treatment plan and further management took 35 minutes. Cosigned by Arturo Dodge DO at 12/02/2024 3:25 PM EDT documented in this encounterSaint Louis University Health Science [id number] Hospital Discharge instructions Follow Up Care 11/05/2024 09:10:01 With:Edin ARCHULETA, INÉS Fontana, PED Address: [address] [place] [address] [address] [place] [address] [phone] When:1 year Comments:annual wellnessTo go instructions:I recommend setting a goal to get back to being in the 180s------*When you see providers outside of [facility], please request that they send office visit notes every time you're seen there - this helps us take better care of youScreening guidelines:Colon cancer screening starts at age 45 for most people; cologuard every three years or colonoscopy every ten years (for average risk patients)Prostate cancer screening with PSA should begin at age 50Dental exams and cleanings every 6 months is recommended - oral health is a predictor of your futureSmokers who have averaged a pack a day for over twenty years should have annual low dose Chest CT to screen for lung cancer starting at age 50Follow up annually [facility] [place] 02-28-2025 Telephone encounter Note* Telephone Encounter - Doris Garcia LPN - 09/13/2024 12:22 PM EST Apmetrix message sent to patient with Procedure Instructions. [facility]02-28-2025 Miscellaneous Notes* Telephone Encounter - Doris Garcia LPN - 09/13/2024 12:22 PM EST Apmetrix message sent to patient with Procedure Instructions. documented in [facility] encounterFort [facility] Telephone encounter Note * Telephone Encounter - Doris Garcia LPN - 08/05/2024 5:24 PM EST Called patient to review his procedure instructions for 08/15/24. Patient stated he had this procedure rescheduled for some time in September, but chart not updated as of yet. [facility]01-20-2025 Miscellaneous Notes* Telephone Encounter - Doris Garcia LPN - 08/05/2024 5:24 PM EST Called patient to review his procedure instructions for 08/15/24. Patient stated he had this procedure rescheduled for some time in September, but chart not updated as of yet. documented in this encounterFort [facility] Hospital01-[facility]-2025 Telephone encounter Note * Telephone Encounter - Doris Garcia LPN - 08/02/2024 4:35 PM EST PubCoderhart message sent to patient for Procedure Instructions. [facility]01-17-2025 Miscellaneous Notes* Telephone Encounter - Doris Garcia LPN - 08/02/2024 4:35 PM EST Symphonyt message sent to patient for Procedure Instructions. documented in this encounterFort Hamilton Hospital01-13-2025 NoteHNO ID: [id number] Author: BARBER SNOW, DO Service: ? Author Type: Physician Type: Progress Notes Filed: 08/10/2024 22:52 Note Text: [facility] Health - Medical Spine Established Patient DISTANCE HEALTH VISIT This Team Access Model visit is a virtual encounter. It required patient-provider interaction for the medical decision making as documented below. I have communicated my name and active licensure. The patient's identity and physical location were verified at the time of this visit. Darius Tahcker has consented to this telephone or audio/video encounter. Persons Present: patient SUBJECTIVE HISTORY OF PRESENT ILLNESS: Darius Thacker is a 64 year old male who presents with a chief complaint of low back pain. Last visit 10/31/22: cont PT HEP, f/u PRN. Since last visit he was only having mild intermittent pain. Patient reports that he is having pain worse for the last couple months, worse when flexed forward and then tries to straighten up again like brushing his teeth. Improves if he walks it off. The pain is intermittent. The pain is located bilateral low back, intermittently to posterior thighs to the knees. Denies any LE numbness/tingling/weakness. Pain is currently 3/10, but can get up to 5.5/10 at worst. Initial visit 05/18/22: Prior episodes: low back [...] can get up to 4/10 with walking. 10/31/22: Patient underwent right L5 TFESI. After 3-4 [...] Patient is happy with his current progress. PAIN EVALUATION 07/29/2024 1406 Pain Level: 3 Pain Location: Back-Lower Duration Units: Minutes Frequency: Intermittent Pain Radiation: down right leg outside of the leg and to the top of the foot. Only on the right. Aggravating Factors: Return to neutral after flexion Alleviating Factors: Walking Current Treatment: Medications Ibuprofen 600 mg BID PRN Therapies PT HEP Prior Treatment: Medications Medrol dose pack - provided some relief Gabapentin was prescribed but he has not tried it Ibuprofen 400 mg - prn, minimal relief - not often Creams, patches and hemp - minimal relief Therapies PT: [facility], Anders Baker PT, frances 05/30 - 09/16/22, 20 visits, including mechanical traction - PT notes responded well with reduced symptoms, but unable to fully resolve, d/c Summary note on 10/14/22. PT - finished for the left leg, not for the right leg 2019 - helped back pain Inversion table - no help Prior spine interventions: -10/04/22 Dr. Snow: Right L5 TFESI - pain decreased from 2-4/10, down to 0-1/10, allowed for increased walking duration, able to sit in car for longer periods of time. Prior spine surgery: -2006 Lumbar discectomy L5-S1 Dr. Sean Veronica - symptoms resolved, caused left foot drop Previously treated by: -Spine Surgery Dr. Sean Veronica 2019. back pain with radiation to right anterio (more content not included)...[facility]01-13-2025 History of Present illness Narrative* Barber Snow, DO - 07/29/2024 4:34 PM EST Images from the original note were not included. [facility] Health - Medical Spine Established Patient DISTANCE HEALTH VISIT This Team Access Model visit is a virtual encounter. It required patient- provider interaction for the medical decision making as documented below. I have communicated my name and active licensure. The patient's identity and physical location wereverified at the time of this visit. Darius Thacker has consented to this telephone or audio/video encounter. Persons Present: patient SUBJECTIVE HISTORY OF PRESENT ILLNESS: Darius Thacker is a 64 year old male who presents with a chief complaint of low back pain. Last visit 10/31/22: cont PT HEP, f/u PRN. Since last visit he was only having mild intermittent pain. Patient reports that he is having pain worse for the last couple months, worse when flexed forward and then tries to straighten up again like brushing his teeth. Improves if he walks it off. The painis intermittent. The pain is located bilateral low back, intermittently to posterior thighs to the knees. Denies any LE numbness/tingling/weakness. Pain is currently 3/10, but can get up to 5.5/10 at worst. Initial visit 05/18/22: Prior episodes: low back [...] can get up to 4/10 with walking. 10/31/22: Patient underwent right L5 TFESI. After 3-4 days to 1 week he noticed significant improvement. Painwas ranging 2-4/10 prior to the injection and [...] Patient is happy with his current progress. PAIN EVALUATION 07/29/2024 1406 Pain Level: 3 Pain Location: Back-Lower Duration Units: Minutes Frequency: Intermittent Pain Radiation: down right leg outside of the leg and to the top of the foot. Only on the right. Aggravating Factors: Return to neutral after flexion Alleviating Factors: Walking Current Treatment: Medications Ibuprofen 600 mg BID PRN Therapies PT HEP Prior Treatment: Medications Medrol dose pack - provided some relief Gabapentin was prescribed but he has not tried it Ibuprofen 400 mg - prn, minimal relief - not often Creams, patches and hemp - minimal relief Therapies PT: [facility], Anders Baker PT, frances 05/30 - 09/16/22, 20 visits, including mechanical traction - PT notes responded well with reduced symptoms, but unable to fully resolve, d/c Summary note on 10/14/22. PT - finished for the left leg, not for the right leg 2019 - helped back pain Inversion table - no help Prior spine interventions: -10/04/22 Dr. Snow: Right L5 TFESI - pain decreased from 2-4/10, down to 0- 1/10, allowed for increased walking duration, able to sit in car for longer periods of time. Prior spine surgery: -2005 Lumbar discectomy L5-S1 Dr. Sean Veronica - symptoms resolved, caused left foot drop Previously treated by: -Spine Surgery Dr. Sean Veronica 2018. back pain with radiation to right anterior thigh. Chronic left dropfoot, but not worsening. 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 Litigation: No Workers' Compensation: No YELLOW & BLUE FLAGS No-Neg Attitude; Back Pain is Disabling No-Avoiding Activity (for Fear of Pain) No-Depression or Anxiety Disorders No-Social Problems No-Substance Use Disorder No-Job Dissatisfaction No-Financial Disincentives Patient Entered Questionnaires 09/09/2022 10/24/2022 07/29/2024 Spine Questions Pain Location: Lower back Lower back Lower back Pain Duration: 1-3 months Symptoms from neck/cervical spine: Yes No Yes Employment Status: Working now Working now Involved in law suit/legal claim: No 05/15/2022 09/09/2022 07/29/2024 Spine Red Flags Any type of cancer: No No No Unexplained fever: No No No Bowel or bladder disfunction: No No No Unintentional weight loss: No No No Osteoporosis: No No No 05/15/2022 09/09/2022 07/29/2024 Neck Questionnaires Benzel Modified ANGELICA Score 17 (Mild Myelopathy Symptoms) 17 (Mild Myelopathy Symptoms) 18 (No Myelopathy Symptoms) PROMIS Score Percentiles 10/09/2023 07/27/2024 07/29/2024 Physical Health Physical Function Percentile 66 31 Sleep Percentile 27* Fatigue Percentile 38 38 Pain Interference Percentile 27* 10/24/2022 10/09/2023 07/29/2024 PROMIS SOCIAL ROLE SCORE Social Role Satisfaction Percentile 96 96 31 10/24/2022 02/22/2023 07/29/2024 PROMIS Global Health Scale Physical Health Percentile 78 96 66 Mental Health Percentile 82 96 73 Percentiles provide an indication of how the patient's score ranks in relation to the general population. Higher percentile rankings indicate better function/quality of life. 50th percentile is the average of the general population and indicates half of respondents had a worse score. Depression Screenin09/09/2022 10/24/2022 07/29/2024 PHQ-9 Score 4 0 0 07/29/2024 10/24/2022 09/09/2022 PHQ-9 Self Harm Question 9 Not at all Not at [...] Generalized Ischemic Myocardial Dysfunction Heart Failure (Hcc) Superficial Keratitis of Right Eye Status Post Cataract Extraction Keratoconjunctivitis Sicca of Both Eyes Not Specified As Sjogren's PAST MEDICAL HISTORY Diagnosis Date Asthma Diverticulosis Elevated liver enzymes Fracture, ankle left Hyperlipidemia Hypertension Hypertriglyceridemia Kidney stones JOSE (obstructive sleep apnea) CPAP Osteoarthritis PAST SURGICAL HISTORY Procedure Laterality Date BACK SURGERY HX 07/17/2005 herniated disc by Tamia BUNDY [facility] STENT COLONOSCOPY 07/17/2012 Social History Tobacco Use Smoking status: Former Current packs/day: 0.00 Average packs/day: 1 pack/day for 15.0 years (15.0 ttl pk-yrs) Types: Cigarettes Start date: 1986 Quit date: 2001 Years since quittin.0 Smokeless tobacco: Never Vaping Use Vaping status: Never Used Substance Use Topics Alcohol use: Not Currently Drug use: No FAMILY HISTORY Problem Relation Age of Onset Cancer Mother other (myocardial infarction [Other]) Father Age 32 other (CABG [Other]) Father age 55 Diabetes Father other (high blood pressure [Other]) Father Arthritis Father other (myocardial infarction [Other]) Paternal Aunt Age Cataract Maternal Grandmother Anesthesia Problems No Family History ALLERGIES Allergen Reactions Atorvastatin Unknown Other Reaction(s): Not available CURRENT MEDICATIONS: neomycin/polymyxin b/dexametha(MAXITROL 3.5 MG/G-10,000 UNIT/G-0.1 % EYE OINTMENT) Apply to lids/lashes Both eyes at bedtime until gone spironolactone (ALDACTONE) 12.5 mg tab aspirin, enteric coated (ASPIRIN, ENTERIC COATED) 81 mg EC tablet Take 81 mg by mouth once daily. gemfibrozil (LOPID) 600 mg tablet Take 600 mg by mouth. lisinopril (ZESTRIL, PRINIVIL) 10 mg tablet Take 10 mg by mouth. rosuvastatin (CRESTOR) 40 mg tablet Take 40 mg by mouth once daily. furosemide (LASIX ORAL) Take 20 mg by mouth. metoprolol succinate ER (TOPROL XL) 50 mg 24 hr tablet q 24 HR. omeprazole (PRILOSEC) 20 mg capsule omeprazole 20 mg capsule,delayed release TAKE 2 CAPSULES BY MOUTH EVERY DAY REVIEW OF SYSTEMS: 14 systems reviewed and [...] MRI lumbar spine with and without contrast, [facility]: Comparison is made to the March [...] his lateral recess. 09/24/2016 XR lumbosacral spine, [facility]: There is straightening of the normal [...] at L5-S1. Soft tissues unremarkable. ASSESSMENT/PLAN DIAGNOSIS: M54.17 Lumbosacral neuritis (primary encounter diagnosis) ASSESSMENT: Darius Thacker is a 64 year old male with PMH of L5-S1 discectomy and chronic left footdrop, CAD s/p stent on ASA 81 mg, JOSE, presenting for f/u of pain. He was last seen in 2022 for pain in right low back/buttock, intermittently to right posterior thigh, sometimes to right calf to lateral ankle, previously to dorsal foot. Patient completed PT and home exercise program was reporting 60 to 70% improvement, but was still limited with prolonged ambulation. MRI lumbar spine showed bilateral L>R severe L5-S1 foraminal stenosis. He underwent right L5 TFESI and pain reduced to intermittent and minimal in the right low back to right buttock. His pain remained minimal until a couple months ago when it worsened. Pain is worst when flexed forward and tries to return to neutral. Improves if he walks it off. The pain is intermittent. The pain is located bilateral low back, intermittently to posterior thighs to the knees. Denies any LE numbness/tingling/weakness. Based on his prior response to injection he would like to try this again. Since symptoms are now bilateral we will planfor Bilateral L5-S1 transforaminal epidural steroid injections. Follow up after injections. PLAN: 1) Imaging/Diagnostic Studies: -Imaging reviewed as above. 2) Therapy/Rehabilitation: -Continue PT HEP. -Activities and exercise as tolerated. 3) Pharmacological Management: -no changes 4) Spine/MSK Interventions: -Bilateral L5-S1 transforaminal epidural steroid injections 5) Consultations: -none 6) Follow -up: -2-4 weeks after injections. -Patient instructed to call/seek urgent medical care with worsening of symptoms or change of neurological status. 7) Future treatment considerations: -Gabapentin (patient does not prefer medications) -Integrative Medicine -Spine Surgery evaluation Total Time Spent: >15-20 minutes SIGNATURE: Barber Snow DO PATIENT NAME: Darius Thacker DATE: July 29, 2024 TIME: 4:39 PM documented in this encounterFort [facility] Hospital11-20-2024 NoteUT Cardiology - [facility] Subjective Darius Thacker is a 64 y.o. year old male patient being seen for 3 mo follow up heart cath performed on 02/28/2024. Denies chest pain, SOB, and palpitations. Still gets a little lightheaded sometimes upon standing. Doing very well. Patient Active Problem List Diagnosis Acute Q wave myocardial infarction (CMS/HCC) Acute renal impairment Asthma Coronary arteriosclerosis Diverticulosis Dyspnea Edema of lower extremity Elevated liver enzymes Eruption due to drug Fracture, ankle Generalized ischemic myocardial dysfunction Hypertriglyceridemia Kidney stones Lumbar transverse process fracture (CMS/HCC) JOSE (obstructive sleep apnea) Osteoarthritis Lumbosacral neuritis Chronic systolic heart failure (CMS/HCC) Essential (primary) hypertension GERD (gastroesophageal reflux disease) Keratoconjunctivitis sicca of both eyes not specified as Sjogren's Prostate cancer screening Status post cataract extraction Superficial keratitis of right eye Chronic frontal sinusitis Heart failure (CMS/HCC) Unstable angina pectoris due to coronary arteriosclerosis (CMS/HCC) Family History Problem Relation Name Age of Onset Leukemia Mother Diabetes Father Heart attack Father Social History Tobacco Use Smoking status: Never Smokeless tobacco: Never Substance Use Topics Alcohol use: Yes Comment: moderate HPI Mr Thacker is seen in follow up on CAD, LAD TX treated by stenting (02/2015) and systolic heart [...] BMP showed normal renal function. he was evaluated on 05/19/2023 because of 2 episodes of syncope while walking. I had stopped furosemide. Also due to low blood pressure I stopped lisinopril. He was evaluated in our office on 01/23/2024 due to symptoms suggestive of unstable angina with chest pain and shortness of breath and near syncope. Cardiac catheterization was performed on 02/28/2024 and showed stable coronary artery disease. Since then he has been doing well. He has no shortness of breath on exertion. No leg swelling. No chest pain. He gets mild occasional lightheadedness when he stands up. This is not bothering him. Review of Systems Musculoskeletal: Positive for arthritis, back pain and neck pain. Neurological: Positive for light-headedness. All other systems reviewed and are negative. Objective Visit Vitals BP 124/78 (BP Location: Right arm, Patient Position: Sitting) Pulse 72 Ht 1.778 m (5' 10 ) Wt 89.4 kg (197 lb) SpO2 96% BMI 28.27 kg/m??? Smoking Status Never BSA 2.1 m??? Physical Exam Constitutional: Appearance: He is [...] Behavior is cooperative. Judgment: Judgment normal. Allergies No Known Allergies Medications Current Outpatient Medications: aspirin 81 mg chewable tablet, Chew 1 tablet (81 mg) in the morning., Disp: 90 tablet, Rfl: 3 dapagliflozin propanediol (Farxiga) 10 mg, TAKE 1 TABLET(10 MG) BY MOUTH IN THE MORNING, Disp: 90 tablet, Rfl: 3 desvenlafaxine (Pristiq) 50 mg 24 hr tablet, Take 1 tablet by mouth in the morning., Disp: , Rfl: ezetimibe (Zetia) 10 mg tablet, Take 1 tablet (10 mg) by mouth in the morning., Disp: 90 tablet, Rfl: 3 gemfibrozil (Lopid) 600 mg tablet, TAKE 1 TABLET(600 MG) BY MOUTH IN THE MORNING AND AT BEDTIME, Disp: 180 tablet, Rfl: 3 gemfibrozil (Lopid) 600 mg tablet, TAKE 1 TABLET(600 MG) BY MOUTH IN (more content not included)...[facility]11-18-2024 Hospital Discharge instructions Patient Education 06/03/2024 11:24:12 Prostate Cancer Screening Prostate Cancer Screening Prostate cancer screening is testing that is done to check for the presence of prostate cancer in men. The prostate gland is a walnut-sized gland that is located below the bladder and in front of therectum in males. The function of the prostate is to add fluid to semen during ejaculation. Prostatecancer is one of the most common types of cancer in men. Who should have prostate cancer screening? Screening recommendations vary based on age and other risk factors, as well as between the professional organizations who make the recommendations. In general, screening is recommended if: You are age 50 to 70 and have an average risk for prostate cancer. You should talk with your healthcare provider about your need for screening and how often screening should be done. Because most prostate cancers are slow growing and will not cause , screening in this age group is generally reserved for men who have a 10- to 15-year life expectancy. You are younger than age 50, and you have these risk factors: ?Having a father, brother, or uncle who has been diagnosed with prostate cancer. The risk is higherif your family member's cancer occurred at an early age or if you have multiple family members withprostate cancer at an early age. ?Being a male who is Black or is of [place] or sub-Saharan descent. In general, screening is not recommended if: You are younger than age 40. You are between the ages of 40 and 49 and you have no risk factors. You are 70 years of age or older. At this age, the risks that screening can cause are greater than the benefits that it may provide. If you are at high risk for prostate cancer, your health care provider may recommend that you have screenings more often or that you start screening at a younger age. How is screening for prostate cancer done? The recommended prostate cancer screening test is a blood test called the prostate-specific antigen(PSA) test. PSA is a protein that is made in the prostate. As you age, your prostate naturally produces more PSA. Abnormally high PSA levels may be caused by: Prostate cancer. An enlarged prostate that is not caused by cancer (benign prostatic hyperplasia, or BPH). This condition is very common in older men. A prostate gland infection (prostatitis) or urinary tract infection. Certain medicines such as male hormones (like testosterone) or other medicines that raise testosterone levels. A rectal exam may be done as part of prostate cancer screening to help provide information about the size of your prostate gland. When a rectal exam is performed, it should be done after the PSA level is drawn to avoid any effect on the results. Depending on the PSA results, you may need more tests, such as: A physical exam to check the size of your prostate gland, if not done as part of screening. Blood and imaging tests. A procedure to remove tissue samples from your prostate gland for testing (biopsy). This is the only way to know for certain if you have prostate cancer. What are the benefits of prostate cancer screening? Screening can help to identify cancer at an early stage, before symptoms start and when the cancer can be treated more easily. There is a small chance that screening may lower your risk of dying from prostate cancer. The chance is small because prostate cancer is a slow-growing cancer, and most men with prostate cancer from a different cause. What are the risks of prostate cancer screening? The main risk of prostate cancer screening is diagnosing and treating prostate cancer that would never have caused any symptoms or problems. This is called overdiagnosisand overtreatment. PSA screening cannot tell you if your PSA is high due to cancer or a different cause. A prostate biopsy is the only procedure to diagnose prostate cancer. Even the results of a biopsy may not tell you if your cancer needs to be treated. Slow-growing prostate cancer may not need any treatment other than monitoring, so diagnosing and treating it may cause unnecessary stress or other side effects. Questions to ask your health care provider When should I start prostate cancer screening? What is my risk for prostate cancer? How often do I need screening? What type of screening tests do I need? How do I get my test results? What do my results mean? Do I need treatment? Where to find more information The [place] [employer]: www.cancer.org [place] [employer]: www.auanet.org Contact a health care provider if: You have difficulty urinating. You have pain when you urinate or ejaculate. You have blood in your urine or semen. You have pain in your back or in the area of your prostate. Summary Prostate cancer is a common type of cancer in men. The prostate gland is located below the bladder and in front of the rectum. This gland adds fluid to semen during ejaculation. Prostate cancer screening may identify cancer at an early stage, when the cancer can be treated more easily and is less likely to have spread to other areas of the body. The prostate-specific antigen (PSA) test is the recommended screening test for prostate cancer, butit has associated risks. Discuss the risks and benefits of prostate cancer screening with your health care provider. If you are age 70 or older, the risks that screening can cause are greater than the benefits that it may provide. This information is not intended to replace advice given to you by your health care provider. Make sure you discuss any questions you have with your health care provider. Document Revised: 12/27/2021 Document Reviewed: 12/27/2021 [employer] Patient Education 2023 [employer]. Follow Up Care 03/13/2023 16:02:25 With:ORA MILLER, Francois George, URL Address: [facility] [address], [place] [address]- [phone] When: only if needed [facility] Jennifer 11-18-2024 NotePatient Education Oncology Prostate Cancer Screening Prostate cancer screening is testing that is done to check for the presence of prostate cancer in men. The prostate gland is a walnut-sized gland that is located below the bladder and in front of therectum in males. The function of the prostate is to add fluid to semen during ejaculation. Prostatecancer is one of the most common types of cancer in men. Who should have prostate cancer screening? Screening recommendations vary based on age and other risk factors, as well as between the professional organizations who make the recommendations. In general, screening is recommended if: ??? You are age 50 to 70 and have an average risk for prostate cancer. You should talk with your health care provider about your need for screening and how often screening should be done. Because most prostate cancers are slow growing and will not cause , screening in this age group is generally reserved for men who have a 10- to 15-year life expectancy. ??? You are younger than age 50, and you have these risk factors: ? Having a father, brother, or uncle who has been diagnosed with prostate cancer. The risk is higher if your family member's cancer occurred at an early age or if you have multiple family members with prostate cancer at an early age. ? Being a male who is Black or is of [place] or sub-Saharan descent. In general, screening is not recommended if: ??? You are younger than age 40. ??? You are between the ages of 40 and 49 and you have no risk factors. ??? You are 70 years of age or older. At this age, the risks that screening can cause are greater than the benefits that it may provide. If you are at high risk for prostate cancer, your health care provider may recommend that you have screenings more often or that you start screening at a younger age. How is screening for prostate cancer done? The recommended prostate cancer screening test is a blood test called the prostate-specific antigen(PSA) test. PSA is a protein that is made in the prostate. As you age, your prostate naturally produces more PSA. Abnormally high PSA levels may be caused by: ??? Prostate cancer. ??? An enlarged prostate that is not caused by cancer (benign prostatic hyperplasia, or BPH). This condition is very common in older men. ??? A prostate gland infection (prostatitis) or urinary tract infection. ??? Certain medicines such as male hormones (like testosterone) or other medicines that raise testosterone levels. A rectal exam may be done as part of prostate cancer screening to help provide information about the size of your prostate gland. When a rectal exam is performed, it should be done after the PSA level is drawn to avoid any effect on the results. Depending on the PSA results, you may need more tests, such as: ??? A physical exam to check the size of your prostate gland, if not done as part of screening. ??? Blood and imaging tests. ??? A procedure to remove tissue samples from your prostate gland for testing (biopsy). This is theonly way to know for certain if you have prostate cancer. What are the benefits of prostate cancer screening? Screening can help to identify cancer at an early stage, before symptoms start and when the cancer can be treated more easily. ??? There is a small chance that screening may lower your risk of dying from prostate cancer. The chance is small because prostate cancer is a slow-growing cancer, and most men with prostate cancer from a different cause. What are the risks of prostate cancer screening? The main risk of prostate cancer screening is diagnosing and treating prostate cancer that would never have caused any symptoms or problems. This is called overdiagnosisand overtreatment. PSA screening cannot tell you if your PSA is high due to cancer or a different cause. A prostate biopsy is the only procedure to diagnose prostate cancer. Even the results of a biopsy may not tell you if your cancer needs to be treated. Slow-growing prostate cancer may not need any treatment other than monitoring, so diagnosing and treating it may cause unnecessary stress or other side effects. Questions to ask your health care provider ??? When should I start prostate cancer screening? What is my risk for prostate cancer? How often do I need screening? What type of screening tests do I need? How do I get my test results? What do my results mean? Do I need treatment? Where to find more information ??? The [place] [employer]: www.cancer.org ??? [place] [employer]: www.auanet.org Contact a health care provider if: ??? You have difficulty urinating. ??? You have pain when you urinate or ejaculate. ??? You have blood in your urine or semen. ??? You have pain in your back or in the area of your prostate. Summary ??? Prostate cancer is a common type of cancer in men. The prostate gland (more content not included)...[facility]10-01-2024 Telephone encounter Note* Telephone Encounter - Anaearline Guanton - 04/16/2024 3:46 PM EDT Pt drops by to get paperwork signed says it has been back and forth since February, form scannedin and in om bin Pt asks to be called to tow picker paperwork instead of [facility]ing [facility] [id number] Miscellaneous Notes* Telephone Encounter - Ana Rosenbaum - 04/16/2024 3:46 PM EDT Pt drops by to get paperwork signed says it has been back and forth since February, form scannedin and in om bin Pt asks to be called to tow picker paperwork instead of faxing documented in this encounterSaint Louis [facility] [id number] NotePatient: Darius Thacker Procedure Information Date/Time: 02/28/24 0830 Procedure: Coronary angiography - PC APPROVED Lt COrs Location: [facility] / [facility] (Cath) Providers: Camila Sen MD Clinical information reviewed: Allergies Meds Physical Exam Airway Mallampati: III TM distance: <3 FB Neck ROM: full Cardiovascular Rhythm: regular Rate: normal (-) murmur, peripheral edema Dental - normal exam Pulmonary - normal exam Breath sounds clear to auscultation Abdominal - normal exam Abdomen: soft Anesthesia Plan ASA 3 other (Conscious sedation) Anesthetic plan and risks discussed with patient. Use of blood products discussed with patient who consented to blood products. Plan discussed with attending. Additional [facility]UnBl[facility] Continue GDMT- ASA, toprol, crestor D/W Dr Sen regarding possible cardiac cathUnBlanchard Valley Health [facility]-2024 NoteHypertension is unchanged, boarderline labile with noted orthostatic changes Continue current medications.[facility]07-09-2024 Note Worsening symptoms of Unstable angina with known [...] stroke, . And he voiced understanding and agreementUnBlanchard Valley Health System [facility] 01-23-2024 NotePatient here for 6 mo follow up CAD, [...] headaches. All other systems reviewed and are negative.[facility] 01-23-2024 NoteUTP CARDIOLOGY PROGRESS NOTE HPI: Darius Thacker is a 63 [...] that he doesn't walk anymore. CAD, LAD TX treated by stenting (02/2015) and systolic heart [...] seen in follow up on CAD, LAD TX treated by stenting (02/2015) and systolic heart [...] Nose: Nose normal. Mouth/Thr (more content not included)...[facility] 01-23-2024 NoteNYHC II-III currently euvolemic without exacerbation- he admits to not drinking enough fluid on a daily basis Continue GDMT- ASA, crestor, farxiga, aldactone and toprol Diuretic therapy- dc'd r/t hypotension/syncope Monitor daily weights, I&O, fluid restriction 1.5-2L/day, renal function and electrolytes-[facility]04-10-2024 Miscellaneous Notes* Addendum Note - Nicole Ryan OD - 10/25/2023 3:14 PM EDTAddended by: NICOLE RYAN on: 10/25/2023 03:14 PM Modules accepted: Orders documented in this encounterFort Hamilton Hospital04-10-2024 Instructions* Patient Instructions* Nicole Ryan OD - 10/25/2023 3:09 PM [...] will blur vision more. documented in this encounterFort Hamilton Hospital04-10-2024 NoteHNO ID: [id number] Author: NICOLE RYAN OD Service: ? Author Type: ENGINE REPAIRER Type: Progress Notes Filed: 10/25/2023 15:09 Note Text: ASSESSMENT/PLAN: 1. Keratoconjunctivitis sicca of both eyes not specified as Sjogren's - ICD9: 370.33, ICD10: H16.223 (primary diagnosis) 2. 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 Keratoconjunctivitis sicca of both eyes not specified as Sjogren's - ICD9: 370.33, ICD10: H16.223 (primary diagnosis) 2. 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 * Telephone Encounter - Alesha Marcos RN - 09/20/2023 3:52 PM EST Hi, Please schedule the following appointment. Patient: Darius Thacker Provider:Dr. Barber Snow Date: 10/02/2023 Time: 430 PM [place] schedule Visit Type: Virtual (visualized on screen) Established Visit follow up Imaging needed prior to schedule: No Patient is aware: Yes Thank you! Alesha Marcos RN Forwarded to [facility] scheduling. * Telephone Encounter - Alesha Marcos RN - 09/20/2023 2:26 PM EST Made a temporary hold on 10/01 at 430 PM for VV. It is on the [place] schedule. documented in this encounterFort Hamilton Hospital12-12-2023 NoteUT Cardiology - [facility] Subjective Darius Thacker is a 63 [...] seen in follow up on CAD, LAD TX treated by stenting (02/2015) and systolic heart [...] mouth at bedtime., Di (more content not included)...[facility] 06-01-2023 History of Present illness Narrative* Nicole Ryan, OD - 06/01/2023 2:00 PM EST ASSESSMENT/PLAN: 1. Left posterior capsular opacification - ICD9: 366.50, ICD10: H26.492 (primary diagnosis) 2. Pseudophakia of both eyes - ICD9: V43.1, ICD10: Z96.1 Dr Negra Schaffer YAG evaluation OS today I have [...] 01, 2023 2:00 PM documented in this encounterFort Hamilton Hospital08-28-2023 Hospital Discharge instructions Patient Education 03/13/2023 15:45:46 Renal Mass Renal Mass A renal mass is an abnormal growth in the kidney. It may be found while performing an MRI, CT scan,or ultrasound to evaluate other problems of the abdomen. A renal mass that is cancerous (malignant)may grow or spread quickly. Others are not [...] the cause of your renal mass. These testsmay be done if a renal mass is [...] of the mass. Follow the instructions that yourhealth care provider gives to you. In general: Take [id number]-cuvnthn and prescription medicines only as told by your health care provider. If you were prescribed an antibiotic medicine, take it as told by your health care provider. Do notstop taking the antibiotic even if you start [...] scan, or ultrasound for other problems of theabdomen. Your health care provider may recommend that [...] provider. Document Revised: 12/28/2020 Document Reviewed: 12/28/2020 [employer] Patient Education 2022 Quirky. Follow Up Care 11/15/2022 12:05:11 With:ORA MILLER, Francois George, URL Address: [facility] [address] , [place] [address]- [phone] When:Within 1 Year(s) Comments:Renal US [facility] Jennifer 08-23-2023 History of Present illness Narrative* Beatriz Jimenes OD - 03/08/2023 11:07 AM EDT ASSESSMENT/PLAN: 1. S/P cataract extraction and insertion of intraocular lens, left - ICD9: V45.61, V43.1, ICD10: Z98.42, Z96.1 Refraction prior to 2nd eye sx. Doing well. Excellent refractive outcome. Continue post-op care with Dr. Breen. OD sx today with Beatriz Jimenes OD I have confirmed and edited as necessary the relevant ophthalmic history, ROS, and the exam findings as obtained by others. I have seen and examined this patient. I have discussed the case and the management of this patient's care with the resident or fellow as appropriate. I also have reviewed andagree with the assessment and plan as stated above and agree with all of its relevant components. Beatriz Jimenes OD March 08, 2023 11:08 AM documented in this encounterFort Hamilton Hospital06-30-2023 Miscellaneous Notes* Telephone Encounter - Nell Lopes Pss - 01/13/2023 9:20 AM EDT Patient states he is scared the small [...] Please review and advise. documented in this encounterFort Hamilton Hospital06-15-2023 History of Present illness Narrative* SARTHAK Aguilar - 12/29/2022 2:08 PM EDT CONFIRM AIM INTERMEDIATE DISTANCE LEFT EYE. AIM -1.50 LEFT EYE. SARTHAK Aguilar documented in this encounterFort Hamilton Hospital06-15-2023 Instructions* Patient Instructions* Sheeba Webster APRN.COOK HOUSE SUPERVISOR - 12/29/2022 1:50 PM EDT PATIENT PREOPERATIVE INSTRUCTIONS Negra Schaffer V, MD has scheduled you for your procedure at this surgery center: [facility]: [phone] --[address] [place] [address]. Please read below carefully for your personalized [...] Procedures: - YOU MUST HAVE A RESPONSIBLE DERMATOLOGIST AND DERMATOPATHOLOGIST TAKE YOU HOME. A AIRPORT CLERK OR VICE PRESIDENT OF HUMAN RESOURCES CANNOT BE MADE A RESPONSIBLE DERMATOLOGIST AND DERMATOPATHOLOGIST. - We recommend that a responsible person stays with you overnight to take care of you. - You cannot stay in a hotel alone after outpatient surgery. You will not be permitted to have yoursurgery, if you do not have someone to [...] Advance Directive, please fax a copy to [phone] or email to for it to be added to your chart. If you do not have an Advance Directive, you can find the appropriate form and more information at [email or web address]. We recommend that youcomplete the Advance Directive form found on the website and bring it with you the day of your surgery. It can be witnessed and scanned into your chart that day. Sheeba Webster APRN.MAXIMILIAN documented in this encounterFort Hamilton Hospital06-15-2023 History and physical note * Sheeba Webster APRN.CNP - 12/29/2022 1:35 PM EDT HISTORY AND PHYSICAL EXAMINATION SERVICE DATE: 12/29/2022 SERVICE TIME: 1:36 PM PRIMARY CARE PHYSICIAN: SELWYN Bhatt REASON FOR VISIT: Darius Thacker is a 62 year old male who is scheduled for PHACOEMULSIFICATION CATARACT IMPLANT INTRAOCULAR LENS W/O ENDOSCOPIC CYCLOPHOTOCOAGULATION left at the request of Dr. Negra Schaffer V for consultation. My final recommendation [...] television,floaters,glare. Patient denies any alleviating factors. Patient jennifer es any pain today PAST MEDICAL HISTORY Diagnosis [...] (FLONASE) 50 mcg/actuation nasal spray Use 1 [place] in each nostril as needed. Yes No medication comments found. CURRENT ALLERGIES: ALLERGIES No Known Allergies COVID VACCINATION STATUS: Fully vaccinated REVIEW OF SYSTEMS: PAIN ASSESSMENT: General: No weight loss, malaise or fevers. Neuro: No history of TIA's, stroke, COVERED BUTTON MAKER tumor, impaired sensorium, hemiplegia, paraplegia or quadraplegia. No neurological symptoms or problems. Positive [place] bilateral hearing aids Respiratory: Positive for Tobacco [...] reviewed them as well. We both agreed thatthere is no thrombus.] Echocardiogram on 01/05/2016: LVEF [...] mg every other day Follows cardiology, Kosta Ravi, ELYSSA-MAXIMILIAN , last OV 11/22/2022. Compliant on medications. Appears euvolemic, denies new or worsening cardiac symptoms. Ejection Fraction: No results found Essential (primary) hypertension Assessment: Stable on medication BP today 115/75 To take medication morning of surgery Hyperlipidemia Assessment: stable on medication Generalized ischemic myocardial dysfunction Assessment: history of TX s/p PTCA in 2014 on ASA follows [...] 2022 TIME: 1:36 PM documented in this encounterFort Hamilton Hospital06-02-2023 Miscellaneous Notes* Telephone Encounter - Kateryna Jordancharissavitaliy [facility] - 12/16/2022 11:30 AM EDT Images from the original note were not included. Called and spoke to patient and scheduled pre op appointments for 12/29. I advised him that we will contact Dr Breen' office and set up the post op appointments (1 day and 1 week). Asked if it was okay that we send him a [employer] message with those appointments. He confirmed [employer] was okay. Add on 01/11 per - call to schedule Received: Yesterday Marina Canales P Ln Opht Surg Precision Machining Instructor CHART MADE AND FILED IN [place] PATIENT SCHEDULED FOR SX OS ONLY 01/11/23 - ADD PER MYC OK: --NO CALL TO SCHEDULE PH #: VERIFIED SR/CASE MSG DONE: YES NOTES: POST OPS W/: DR STEFF Schaffer V, MD P Ln Opht Surg Precision Machining Instructor Left eye only Comanage with Dr Breen The documentation for this note was completed by SARTHAK Ba acting as a scribe for Negra SCHAFFER MD. 12/15/2022 12:36 PM. ASSESSMENT / [...] and surgery - [facility] documented in this encounterFort Hamilton Hospital06-01-2023 Miscellaneous Notes* Addendum Note - Marina Canales - 12/15/2022 2:17 PM EDTAddended by: MARINA SALGADO on: 12/15/2022 02:17 PM Modules accepted: Orders documented in this encounterFort Hamilton Hospital06-01-2023 History of Present illness Narrative* Negra Schaffer V, MD - 12/15/2022 12:36 PM EDT The documentation for this note was completed by SARTHAK Ba acting as a scribe for Negra SCHAFFER MD. 12/15/2022 12:36 PM. ASSESSMENT / [...] able to function adequately on a day-to-day basisbecause of his current visual condition. Further, it [...] patient was offered a surgery/procedure [facility] a [facility] facility. The surgeon/proceduralist and patient have discussed in detail the risk of exposure to and/or potential harm posed by the COVID-19 virus with having a surgery/procedure at this time versus the risk of delaying the surgery/pr ocedure. It is not possible to know either the risk of delaying the surgery or procedure or chance of getting an infection with perfect accuracy, but a joint decision was made between the patient andthe surgeon/proceduralist to proceed at this time with the scheduled surgery/procedure as indicatedon the consent form. The documentation recorded by the scribe accurately reflects the service I personally performed andthe decisions made by me. I have confirmed and edited as necessary the relevant ophthalmic history,ROS, and the exam findings as obtained by others. I have seen and examined Darius Thacker. I also have reviewed and agree with the assessment and plan as stated above and agree with all of its relevant components. Negra SCHAFFER MD December 15, 2022 12:36 PM * Beatriz Jimenes, MAYI - 12/15/2022 12:29 PM EDT ASSESSMENT/PLAN: 1. Combined forms of age-related cataract of both eyes - ICD9: 366.19, ICD10: H25.813 (primary diagnosis) OS>>OD. Pt educated. Eval with AH today. Ref by Dr. Breen 2. Myopia with astigmatism and presbyopia, bilateral - ICD9: 367.1, 367.20, 367.4, ICD10: H52.13, H52.203, H52.4 Beatriz Jimenes OD I have confirmed and edited as necessary the relevant ophthalmic history, ROS, and the exam findings as obtained by others. I have seen and examined this patient. I have discussed the case and the management of this patient's care with the resident or fellow as appropriate. I also have reviewed andagree with the assessment and plan as stated above and agree with all of its relevant components. Beatriz Jimenes OD December 15, 2022 12:29 PM documented in this encounterFort Hamilton Hospital04-17-2023 History of Present illness Narrative* Barber Snow, DO - 10/31/2022 4:13 PM EDT Images from the original note were not included. [facility] [place] [facility] [place] - Medical Spine Established Patient DISTANCE HEALTH VISIT This Team Access Model visit is a virtual encounter. It required patient- provider interaction for the medical decision making as documented below. I have communicated my name and active licensure. The patient's identity and physical location wereverified at the time of this visit. Darius [...] to 1 week he noticed significant improvement. Painwas ranging 2-4/10 prior to the injection and [...] Current Treatment: Medications None currently Therapies PT: [facility], Anders Baker PT, frances 05/30 - [...] - pain decreased from 2-4/10, down to 0- 1/10, allowed for increased walking duration, able to sit in car for longer periods of time. Prior spine surgery: -2005 Lumbar discectomy L5-S1 Dr. Sean Veronica - symptoms resolved, caused left foot drop Previously treated by: -Spine Surgery Dr. Sean Veronica 2019. back pain with radiation to right anterior thigh. Chronic left dropfoot, but not worsening. 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 (Patient not taking: No sig reported) desvenlafaxine ER (PRISTIQ) 50 mg 24 hr tablet Take 50 mg by mouth once daily. (Patient not taking:No sig reported) ezetimibe (ZETIA) 10 mg tablet [...] MRI lumbar spine with and without contrast, [facility]: Comparison is made to the March [...] his lateral recess. 09/24/2016 XR lumbosacral spine, [facility]: There is straightening of the normal [...] PMH of L5-S1 discectomy and chronic left footdrop, CAD s/p stent on ASA 81 mg, [...] longer having pain radiating to the right posteriorthigh or right lateral calf to ankle. Not [...] 2022 TIME: 4:13 PM documented in this encounterFort Hamilton Hospital03-28-2023 Miscellaneous Notes* Telephone Encounter - Evonne Coronado RN - 10/11/2022 1:59 PM EDT Tried to reach patient for post-injection phone call. Left office number for patient to call back. Mobile[employer]ack[employer] message/questionairre sent regarding post-injection. documented in this encounterFort Hamilton Hospital03-14-2023 Miscellaneous Notes* Telephone Encounter - Abner Yoder LPN - 09/27/2022 11:11 AM EDT Phoned patient and spoke with Jb to confirm appointment for Darius Thacker for spine procedure on 10/04/2022. Patient notified that Randall will call patient the night before with the time to arrivefor injection. Patient verbalized understanding of the following: -Provided education on spine procedure and answered questions related to spine injection procedure. -Patient notified effective 01/04/2021 asymptomatic adult patients, regardless of vaccination status, will no longer require COVID-19 testing before undergoing outpatient procedure -[place] Worker is needed to drive patient home. -NPO [...] Antibiotics?: No Diabetic: No Patient given number [phone], spine injections schedulers, if there is any need to reschedule/change appointment during normal business hours. Active MyChart users were informed to read MyChartprocedure instructions prior to appointment. AMBULATORY PATIENT EDUCATION [...] AND POST INJECTION INSTRUCTIONS documented in this encounterFort Hamilton Hospital01-25-2023 Miscellaneous Notes* Allied Health - Obdulio Tay Tech - 08/10/2022 3:20 PM EST Radiology Service Progress Note PATIENT NAME: Darius Thacker DATE OF SERVICE: August 10, 2022 TIME: 3:17 PM PATIENT IDENTITY VERIFICATION COMPLETED USING TWO (2) IDENTIFIERS: Name and Date of confirmedby patient verbally and Name and Date of [...] 10, 2022 3:17 PM documented in this encounterFort Hamilton Hospital01-09-2023 History of Present illness Narrative* Barber Penn Pageodilon, DO - 07/25/2022 4:25 PM EST Images from the original note were not included. [facility] - Medical Spine Established Patient DISTANCE HEALTH VISIT This Team Access Model visit is a virtual encounter. It required patient- provider interaction for the medical decision making as [...] he has not tried it Therapies PT: [facility], eval 05/30 - 07/20/21, has attended [...] radiation to right anterior thigh. Chronic left dropfoot, but not worsening. 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 (Patient not taking: Reported on 05/18/2022) desvenlafaxine ER (PRISTIQ) 50 mg 24 hr tablet Take 50 mg by mouth once daily. (Patient not taking:Reported on 05/18/2022) ezetimibe (ZETIA) 10 mg tablet [...] MRI lumbar spine with and without contrast, [facility]: Comparison is made to the March [...] his lateral recess. 09/24/2016 XR lumbosacral spine, [facility]: There is straightening of the normal [...] of L5-S1 discectomy, CAD s/p stent on ASA81 mg, JOSE, presenting for f/u of pain, now located right low back/buttock radiating to RLE posterolaterally to the ankle, previously to dorsal foot. Following last visit patient was attending PT andnoting 70-80% improvement until last week after walking [...] 2022 TIME: 4:26 PM documented in this encounterFort Hamilton Hospital01-06-2023 Miscellaneous Notes* Telephone Encounter - Alesha Marcos RN - 07/22/2022 1:47 PM EST Spoke to Em [facility] she states needs Verbal permission from patient to be able to speak to and can discuss claim with her. Has told her this. It is an [place] procession issue. Called spouse advised her that she needs to have patient call Em and give her verbal permission she canthen discuss claim with her. She verbalized understanding. * Telephone Encounter - Alesha Marcos RN - 07/22/2022 1:38 PM EST Left message on voicemail for Em [facility] to call office back. * Telephone Encounter - Varinder Bishop - 07/21/2022 4:24 PM EST Pt called, states they received a call from their insurance ([employer]) and the diagnosis code that we gave for physical therapy (M54.41) is not a valid diagnosis code and they want to charge patient for the visits he has had and that future ones would also not be covered unless we can provide a valid di agnosis code for him? Asking if we could submit diagnosis to them. We can also reach out to the office of the [facility] is seeing, [facility] [phone] Please contact patient to advise of any details/further questions. Varinder Monet Pss documented in this encounterFort Hamilton Hospital11-02-2022 History of Present illness Narrative* Barber Snow DO - 05/18/2022 2:02 PM EDT Images from the original note were not included. [facility] - Medical Spine Initial Exam SUBJECTIVE HISTORY OF PRESENT ILLNESS: Darius Thacekr is a 62 year old male who [...] radiation to right anterior thigh. Chronic left dropfoot, but not worsening. 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 desvenlafaxine ER [...] MRI lumbar spine with and without contrast, [facility]: Comparison is made to the March [...] his lateral recess. 09/24/2016 XR lumbosacral spine, [facility]: There is straightening of the normal [...] of L5-S1 discectomy, CAD s/p stent on ASA81 mg, JOSE, presenting with acute right low [...] Therapy/Rehabilitation: -PT referral placed for lumbar spine. -[place] trained therapist list provided for local options, will likely go to [facility]. -Activities and exercise as tolerated. 3) Pharmacological [...] 2022 TIME: 2:11 PM documented in this encounterFort Hamilton HospitalEvaluation + Plan note No data available for this section [facility] Future Appointments Appointment Date:03/08/2024 09:45:00 AM Scheduled Provider:Francois PAYAN MD Location[facility] Appointment Type:URO Office Visit Future Scheduled Tests Radiology* US Renal 03/13/23 [facility] evaluation + Plan note Future Appointments Appointment Date:04/22/2024 12:30:00 PM Scheduled Provider:[facility] evaluation + Plan note Future Appointments Appointment Date:06/03/2024 10:30:00 AM Scheduled Provider:Francois PAYAN [facility]O [facility] Evaluation + Plan note Future Appointments Appointment Date:12/08/2025 01:00:00 PM Scheduled Provider:Anders Jesus DO Location:[facility] Appointment Type:[facility] [place] evaluation note* Diagnosis Acute right-sided low back pain with right-sided sciatica- Primary Lumbosacral radiculitis Thoracic or lumbosacral neuritis or radiculitis, unspecified [facility]* Diagnosis Chronic right-sided low back pain with right-sided sciatica- Primary Lumbosacral radiculitis Thoracic or lumbosacral neuritis or radiculitis, unspecified Radiculopathy of lumbar region Thoracic or lumbosacral neuritis or radiculitis, unspecified documented in this encounter [facility] noteNo assessment information availableWayne Hospital Work Phone: Evalukhhjt note* Diagnosis Chronic right-sided low back pain with right-sided sciatica- Primary Radiculopathy of lumbar region Thoracic or lumbosacral neuritis or radiculitis, unspecified documented in this encounter [facility]* Diagnosis Combined forms of age-related cataract of both eyes- Primary Other and combined forms of senile cataract Myopia with astigmatism and presbyopia, bilateral Combined forms of age-related cataract of both eyes Other and combined forms of senile cataract documented in this encounter [facility]* Diagnosis Pre-op evaluation- Primary Preoperative examination, [...] of senile cataract documented [facility]* Diagnosis Combined forms of age-related cataract of both eyes Other and combined forms of senile cataract Combined forms of age-related cataract of both eyes Other and combined forms of senile cataract documented [facility]* Diagnosis S/P cataract extraction and insertion of intraocular lens, left- Primary documented [facility] this [facility]* Diagnosis Chronic right-sided low back pain with right-sided sciatica Radiculopathy of lumbar region Thoracic or lumbosacral neuritis or radiculitis, unspecified Bilateral posterior capsular opacification- Primary After-cataract, unspecified documented [facility] this encounter [facility]* Diagnosis Left posterior capsular opacification- Primary After-cataract, unspecified Pseudophakia of both eyes Lens replaced by other means documented in this encounter [facility]* Diagnosis Keratoconjunctivitis sicca of both eyes not specified as Sjogren's- Primary Keratoconjunctivitis sicca, not specified as Sjogren's 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 of both eyes Pinguecula of left eye Pinguecula Pterygium, right Pseudophakia of both eyes Lens replaced by other means History of YAG laser capsulotomy of lens, left documented in this encounter [facility] note* Diagnosis Pre-op evaluation- Primary Preoperative examination, unspecified JOSE (obstructive sleep apnea) Obstructive sleep apnea (adult) (pediatric) Uncomplicated asthma, unspecified asthma severity, unspecified whether persistent Hyperlipidemia, unspecified hyperlipidemia type Heart failure, unspecified HF chronicity, unspecified heart failure type (HCC) Essential (primary) hypertension Unspecified essential hypertension Generalized ischemic myocardial dysfunction Other specified forms of chronic ischemic heart disease Pre-op evaluation- Primary Preoperative examination, unspecified Heart failure, unspecified HF chronicity, unspecified heart failure type (HCC) Hypertriglyceridemia Pure hyperglyceridemia JOSE (obstructive sleep apnea) Obstructive sleep apnea (adult) (pediatric) Generalized ischemic myocardial dysfunction Other specified forms of chronic ischemic heart disease Lumbosacral neuritis- Primary Thoracic or lumbosacral neuritis or radiculitis, unspecified Lumbosacral neuritis Thoracic or lumbosacral neuritis or radiculitis, unspecified documented [facility] this encounter [facility]* Diagnosis Pre-op evaluation- Primary Preoperative examination, unspecified JOSE (obstructive sleep apnea) Obstructive sleep apnea (adult) (pediatric) Uncomplicated asthma, unspecified asthma severity, unspecified whether persistent Hyperlipidemia, unspecified hyperlipidemia type Heart failure, unspecified HF chronicity, unspecified heart failure type (HCC) Essential (primary) hypertension Unspecified essential hypertension Generalized ischemic myocardial dysfunction Other specified forms of chronic ischemic heart disease Pre-op evaluation- Primary Preoperative examination, unspecified Heart failure, unspecified HF chronicity, unspecified heart failure type (HCC) Hypertriglyceridemia Pure hyperglyceridemia JOSE (obstructive sleep apnea) Obstructive sleep apnea (adult) (pediatric) Generalized ischemic myocardial dysfunction Other specified forms of chronic ischemic heart disease Lumbosacral neuritis- Primary Thoracic or lumbosacral neuritis or radiculitis, unspecified Lumbosacral neuritis Thoracic or lumbosacral neuritis or radiculitis, unspecified documented in this encounter [facility]* Diagnosis Primary osteoarthritis of both shoulders- Primary Acute pain of both shoulders [facility]* Diagnosis Dry eyes- Primary Unspecified tear film insufficiency Blepharitis of upper and lower eyelids of both eyes, unspecified type Pseudophakia Lens replaced by other means documented in this encounter [facility] Discharge instructions No data available for this section [facility] No data available for this section [facility] Summary Purpose Family History No Family History Records FoundNo Family History Records FoundNo Family History Records Found No data available for this section No data available for this section No data available for this section No Family History Records FoundNo Family History Records Found No data available for this section No Family History Records FoundNo Family History Records FoundNo Family History Records Found No data available for this section No Family History Records Found Advance Directives No Advanced Directives Records Found Advance Directive Response Recorded Date/ Time Advance Directives No November 30 9 9:30am Reason for Referral SpecialtyDiagnoses / ProceduresReferred By ContactReferred To [facility] Diagnoses Acute right-sided low back pain with right-sided sciatica Lumbosacral radiculitis Procedures CONSULT TO PHYSICAL THERAPY PHYSICAL THERAPY EVALUATION HIGH COMPLEX 45 MINS Barber Snow, [address] [place] [address] [facility] [place] [facility] [place] [address] Referral IDStatusReasonSteastland DateExpiration DateVisits RequestedVisits [id number] Review Auto-Generated Referral [id number] / ProceduresReferred By ContactReferred To ContactMR IMAGING Diagnoses Chronic right-sided low back pain with right-sided sciatica Radiculopathy of lumbar region Procedures MRI LUMBAR SPINE WO IVCON MRI SPINAL CANAL LUMBAR W/O CONTRAST MATERIAL Barber Snow, [address] [place] [address] Mr Imaging Referral IDStatusReasonBillings DateExpiration DateVisits RequestedVisits [id number] Auto-Generated Referral [id number] / ProceduresReferred By ContactReferred To ContactMR IMAGING Diagnoses Chronic right-sided low back pain with right-sided sciatica Radiculopathy of lumbar region Procedures MRI LUMBAR SPINE WO IVCON MRI SPINAL CANAL LUMBAR W/O CONTRAST MATERIAL Barber Snow, [address] [id number] Mr Imaging [place] [address] Chief Complaint and Reason for Visit Chief Complaint Brant only; back Additional Source Comments (unrecognized sect ion and content) No Status Records FoundNo Status Records FoundNo Status Records FoundNo Status Records FoundNo Status Records FoundNo Status Records FoundNo Status Records FoundNo Status Records FoundNo Status Records Found INFORMATION SOURCE (unrecogn ized section and content) DATE CREATED AUTHOR 10/23/2018 [facility] DATE CREATED AUTHOR AUTHOR'S ORGANIZ ATION 10/19/[address] [facility] DATE CREATED AUTHOR AUTHOR'S ORGANIZ ATION 11/12/2022 [facility] DATE CREATED AUTHOR AUTHOR'S ORGANIZ ATION 06/08/2024 [facility] DATE CREATED AUTHOR AUTHOR'S ORGANIZ ATION 09/15/2024 [facility] DATE CREATED AUTHOR AUTHOR'S ORGANIZ ATION 01/26/2025 [facility] DATE CREATED AUTHOR AUTHOR'S ORGANIZ ATION 02/04/2025 [facility] DATE CREATED AUTHOR AUTHOR'S ORGANIZ ATION 02/14/2025 [facility] DATE CREATED AUTHOR AUTHOR'S ORGANIZ ATION 03/18/2025 [facility] Source Comments (unrecognize d section and content) In the event this informatio n is protected by the Federal Confidentiality of Alcohol and Drug Abuse Patient Records regulations: The Federal rules restrict any use of the information to criminally investigate or prosecute any alcohol or drug abuse patient.[facility] the event this information is protected by the Federal Confidentiality of Alcohol and Drug Abuse Patient Records regulations: The Federal rules restrict any use of the information to criminally investigate or prosecute any alcohol or drug abuse patient.[facility] HospitalIn the event this information is protected by the Federal Confidentiality of Alcohol and Drug Abuse Patient Records regulations: The Federal rules restrict any use of the information to criminally investigate or prosecute any alcohol or drug abuse patient.[facility] HospitalIn the event this information is protected by the Federal Confidentiality of Alcohol and Drug Abuse Patient Records regulations: The Federal rules restrict any use of the information to criminally investigate or prosecute any alcohol or drug abuse patient.[facility] HospitalIn the event this information is protected by the Federal Confidentiality of Alcohol and Drug Abuse Patient Records regulations: The Federal rules restrict any use of the information to criminally investigate or prosecute any alcohol or drug abuse patient.[facility] HospitalIn the event this information is protected by the Federal Confidentiality of Alcohol and Drug Abuse Patient Records regulations: The Federal rules restrict any use of the information to criminally investigate or prosecute any alcohol or drug abuse patient.[facility] HospitalIn the event this information is protected by the Federal Confidentiality of Alcohol and Drug Abuse Patient Records regulations: The Federal rules restrict any use of the information to criminally investigate or prosecute any alcohol or drug abuse patient.[facility] HospitalIn the event this information is protected by the Federal Confidentiality of Alcohol and Drug Abuse Patient Records regulations: The Federal rules restrict any use of the information to criminally investigate or prosecute any alcohol or drug abuse patient.[facility] HospitalIn the event this information is protected by the Federal Confidentiality of Alcohol and Drug Abuse Patient Records regulations: The Federal rules restrict any use of the information to criminally investigate or prosecute any alcohol or drug abuse patient.[facility] HospitalIn the event this information is protected by the Federal Confidentiality of Alcohol and Drug Abuse Patient Records regulations: The Federal rules restrict any use of the information to criminally investigate or prosecute any alcohol or drug abuse patient.[facility] HospitalIn the event this information is protected by the Federal Confidentiality of Alcohol and Drug Abuse Patient Records regulations: The Federal rules restrict any use of the information to criminally investigate or prosecute any alcohol or drug abuse patient.[facility] HospitalIn the event this information is protected by the Federal Confidentiality of Alcohol and Drug Abuse Patient Records regulations: The Federal rules restrict any use of the information to criminally investigate or prosecute any alcohol or drug abuse patient.[facility] HospitalIn the event this information is protected by the Federal Confidentiality of Alcohol and Drug Abuse Patient Records regulations: The Federal rules restrict any use of the information to criminally investigate or prosecute any alcohol or drug abuse patient.[facility] HospitalIn the event this information is protected by the Federal Confidentiality of Alcohol and Drug Abuse Patient Records regulations: The Federal rules restrict any use of the information to criminally investigate or prosecute any alcohol or drug abuse patient.[facility] HospitalIn the event this information is protected by the Federal Confidentiality of Alcohol and Drug Abuse Patient Records regulations: The Federal rules restrict any use of the information to criminally investigate or prosecute any alcohol or drug abuse patient.[facility] HospitalIn the event this information is protected by the Federal Confidentiality of Alcohol and Drug Abuse Patient Records regulations: The Federal rules restrict any use of the information to criminally investigate or prosecute any alcohol or drug abuse patient.[facility] HospitalIn the event this information is protected by the Federal Confidentiality of Alcohol and Drug Abuse Patient Records regulations: The Federal rules restrict any use of the information to criminally investigate or prosecute any alcohol or drug abuse patient.[facility] HospitalIn the event this information is protected by the Federal Confidentiality of Alcohol and Drug Abuse Patient Records regulations: The Federal rules restrict any use of the information to criminally investigate or prosecute any alcohol or drug abuse patient.[facility] HospitalIn the event this information is protected by the Federal Confidentiality of Alcohol and Drug Abuse Patient Records regulations: The Federal rules restrict any use of the information to criminally investigate or prosecute any alcohol or drug abuse patient.[facility] HospitalIn the event this information is protected by the Federal Confidentiality of Alcohol and Drug Abuse Patient Records regulations: The Federal rules restrict any use of the information to criminally investigate or prosecute any alcohol or drug abuse patient.[facility] HospitalIn the event this information is protected by the Federal Confidentiality of Alcohol and Drug Abuse Patient Records regulations: The Federal rules restrict any use of the information to criminally investigate or prosecute any alcohol or drug abuse patient.[facility] Reason for Visit (unrecogniz ed section and content) ReasonCommentsNew PatientLower back pain down to rt ankleReasonCommentsOrders ReasonCommentsLeg PainReasonCommentsPreparations For ProceduresPre-injection callReasonCommentspost injection follow upReasonCommentsLow Back PainReason CommentsCataract EvaluationReasonCommentsSchedule SurgeryReasonComments Anesthesia ConsultLeft eye cataractReasonCommentsPre-Op ExamReasonOnset Date CommentsRefill [id number]/13/2023ReasonCommentsrefraction before surgerySpecialty Diagnoses / ProceduresReferred By ContactReferred To ContactASC [facility] Diagnoses Combined forms of age-related cataract of both eyes Myopia with astigmatism and presbyopia, bilateral Procedures XCAPSL CTRC RMVL INSJ IO LENS PROSTH W/O ECP OPH BMTRY PRTL COHER INTRFRMTRY IO LENS PWR DELMIS PHACOEMULSIFICATION CATARACT IMPLANT INTRAOCULAR LENS W/O ENDOSCOPIC CYCLOPHOTOCOAGULATION OPHTHALMIC BIOMETRY BY PARTIAL COHERENCE INTERFEROMETRY W/INTRAOCULAR LENS POWER CALCULATION [facility] [address] [place] [address] Referral IDStatusReasonStart DateExpiration DateVisits RequestedVisits [id number] / ProceduresReferred By ContactReferred To ContactMR IMAGING Diagnoses Chronic right-sided low back pain with right-sided sciatica Radiculopathy of lumbar region Procedures MRI LUMBAR SPINE WO IVCON MRI SPINAL CANAL LUMBAR W/O CONTRAST MATERIAL Barber Snow, DO [address] [place] [address] Mr Imaging [place] [address] Referral IDStatusReasonSteastland DateExpiration DateVisits RequestedVisits [id number] Auto-Generated Referral /[id number] Capsule Opacification EvaluationReason CommentsForeign Body SensationReasonOnset DateCommentsLetter for School/Work 4ReasonCommentsPreperations for ProcedureMychartReasonComments Preperations for Procedure CallReasonCommentsPreperations for ProcedureMychart ReasonCommentsOsteoarthritisReasonCommentsFollow-up Care Teams (unrecognized sec tion and content) Team MemberRelationshipSpecialtyStart DateEnd Date Maria D Petersen PCP - [facility]02/14/14Team MemberRelationshipSpecialtyStart DateEnd Date Maria D Petersen PCP - GeneralFamily Medicine02/14/14Team MemberRelationshipSpecialtyStart DateEnd Date Maria D Petersen PCP - GeneralFamily Medicine02/14/14Team MemberRelationshipSpecialtyStart DateEnd Date Maria D Petersen PCP - GeneralFamily Medicine02/14/14Team MemberRelationshipSpecialtyStart DateEnd Date Maria D Petersen PCP - [facility]Mer[facility]02/14/14 Team Status: Active Member Role Status Dates Maria D Petersen PA-C Primary Care Provider Active Team Status: Inactive Member Role Status Dates Maria D Petersen PA-C Primary Care Provider Active Barber Snow Jr, DOAttending ProviderActiveTeam MemberRelationshipSpecialty Start DateEnd Date Maria D Petersen PCP - GeneralFamily Medicine02/14/14Team MemberRelationshipSpecialtyStart DateEnd Date Maria D Petersen PCP - GeneralFamily Medicine02/14/14Team MemberRelationshipSpecialtyStart DateEnd Date Maria D Petersen PCP - GeneralFamily Medicine02/14/14Team MemberRelationshipSpecialtyStart DateEnd Date Maria D Petersen PCP - GeneralFamily Medicine02/14/14Team MemberRelationshipSpecialtyStart DateEnd Date Maria D Petersen PCP - GeneralFamily Medicine02/14/14Team MemberRelationshipSpecialtyStart DateEnd Date Maria D Petersen PA-C PCP - GeneralFamily Medicine02/14/14Team MemberRelationshipSpecialtyStart DateEnd Date Maria D Petersen PA-C [facility] - [facility]/14/14Team MemberRelationshipSpecialtyStart DateEnd Date Maria D Petersen PA-C PCP - [facility]02/14/14Team MemberRelationshipSpecialtyStart DateEnd Date Maria D Petersen PA-C PCP - [facility]02/14/14Team MemberRelationshipSpecialtyStart DateEnd Date Maria D Petersen PA [address] [place] [address] [place] [address] [facility] - [facility]12/23/22Team MemberRelationshipSpecialtyStart DateEnd Date Maria D Petersen PA-C PCP - [facility]02/14/14Team MemberRelationshipSpecialtyStart DateEnd Date Maria D Petersen PA-C PCP - [facility] Medicine02/14/14Team MemberRelationshipSpecialtyStart DateEnd Date Maria D Petersen PA-C PCP - Generalmily Medicine02/14/14Team MemberRelationshipSpecialtyStart DateEnd Date Maria D Petesren PA-C [facility]02/14/14Team MemberRelationshipSpecialtyStart DateEnd Date Maria D Petersen PA [address] [place] [address] PCP - [facility]12/23/22Team MemberRelationshipSpecialtyStart DateEnd Date Claudia Gonzalez MD [address] [place] [address] PCP - [facility]12/06/24 Maria D Petersen PA [address] [place] [address] Physician [facility]miSouth [facility]12/06/24Te MemberRelationshipSpecialtyStart DateEnd Date Claudia Gonzalez MD [address] [place] [address] [facility]12/06/24 Maria D Petersen PA [address] [place] [address] Physician AssistantEm[facility]12/06/24 Goals (unrecognized section and content) Goals may [...] BE BASED ON THE PRIMARY CLINICAL RECORDS. [employer] [facility]. provides no warranty or guarantee of the accuracy or completeness of information in this document.
== END 2025-06-05 11:00 | disposition home or self-care (01) ==
LOC: LAB 11:02
PROVIDERS: PCP Physician Assistant; Visit Provider Nurse Practitioner Family
DX: Z00.00 Encounter for general adult medical examination without abnormal findings (principal)
CPT/HCPCS: 36415; 80053; 80061; 85025

== ENCOUNTER 2025-07-16 13:51 | Outpatient (OUT) | payer BC, SELFPAY ==
--- OUTSIDE RECORDS SUMMARY | 2025-07-09 09:32 | XMS_ITS | Encounter Summary ---
Author Organization [facility] Address [address] [place] [address] Care Team Providers Care Medical Grade Shoemaker Name Role Phone Maria D Wiggins PA-C Primary Care Provider Source Comments In the event this information is protected by the Federal Confidentiality of Alcohol and Drug AbusePatient Records regulations: The Federal rules restrict any use of the information to criminally investigate or prosecute any alcohol or drug abuse patient.[facility] Reason for Visit * Auth/Cert (Routine)SpecialtyDiagnoses / ProceduresReferred By ContactReferred To ContactPAIN MANAGEMENT Diagnoses Cervical spondylosis without myelopathy Cervical spondylosis without myelopathy [M47.812] Procedures NJX AA&/STRD TFRML EPI LUMBAR/SACRAL 1 LEVEL INJECTION(S) STEROID TRANSFORAMINAL EPIDURAL LUMBAR W/IMAGE GUIDANCE FLUORO OR CT Pain Management [address] [place] [address] Phone: tel: Referral IDStatusReasonStart DateExpiration DateVisits RequestedVisits [id number] Encounter Details DateTypeDepartmentCare Team (Latest Contact Info)Yfmgqkxyzue90/24/2025 9:32 AM EST - 07/09/2025 11:40 AM ESTHospital Encounter Pain Management [address] [facility] [place] [address] PageBarber donald, DO [address] [place], [place] [id number] Cervical spondylosis without myelopathy [M47.812] Discharge Disposition: Home Social History Tobacco UseTypesPacks/DayYears UsedDateSmoking Tobacco: [id number] - 2001Smokeless Tobacco: NeverAlcohol UseStandard Drinks/WeekCommentsNot Currently0 (1 standard drink = 0.6 oz pure alcohol)PHQ-2AnswerDate RecordedPHQ-2 [id number] Deprivation IndexAnswerDate RecordedNational Score (1- 100), lower number is lower uvuv851212/15/2022State Score (1-10), lower number is lower mtje655ata from: https://www.neighborhoodatlas.[facility].edu/. Last address used for calculation[address] [place] 12/[birth year]22Sex and Gender InformationValueDate Recorded Sex Assigned at BirthNot on fileLegal YkrLbix3402/14/2014 9:49 AM EDTGender IdentityNot on fileSexual OrientationNot on fileOccupationIndustryJob Start Date Job End DateCar DealerNot on fileNot on fileNot on filedocumented as of this encounter Last Filed Vital Signs Vital SignReadingTime TakenCommentsBlood Dmbdcuep688/8112 11:30 AM EST Uqzmm277907/09/2025 11:30 AM RSOWdmsjataiuc91.8 ??C (96.4 ??F)07/09/2025 9:43 AM ESTRespiratory Wcgt334109/09/2024 9:43 AM ESTOxygen Myhgcfdtdt69%07/09/2025 11:30 AM ESTInhaled Oxygen Concentration--Ubactn11.7 kg (200 lb)07/09/2025 9:41 AM EST Height--Body Mass Index28.708 2:05 PM EDTdocumented in this encounter Functional Status * Are you deaf or do you have serious difficulty hearing?AnswerDate of KzdkmliimlRmbqqnMdj31/24/2015 2:33 PM Ashley Lees LPN * Are you blind or do you have serious difficulty seeing, even when wearing glasses?AnswerDate of LmhghjzesqWsfmnrRt69/24/2015 2:33 PM Ashley Lees LPN * Do you have serious difficulty walking or climbing stairs?AnswerDate of InhdbfoboeDcnpabFq16/24/2015 2:33 PM Ashley Lees LPN * Do you have difficulty dressing or bathing?AnswerDate of AssessmentAuthorYes 11/07/2014 2:33 PM Ashley Lees LPN * Because of a physical, mental, or emotional condition, do you have difficulty doing errands alone such as visiting a doctor's office or shopping?AnswerDate of VdifgfkaqvLlqjruQlw58/24/2015 2:33 PM Ashley Lees LPN documented as of this encounter Mental Status * Because of a physical, mental, or emotional condition, do you have serious difficulty concentrating, remembering, or making decisions?AnswerEntry Date NitqpkOc94/24/2015 2:33 PM Ashley Lees LPN documented in this encounter Medications at Time of Discharge MedicationSigDispense QuantityRefillsLast FilledStart DateEnd semaglutide, weight loss, (WEGOVY) 0.25 mg/0.5 mL pen injector Inject 0.25 mg subcutaneously one time a week.06/23/2025 aspirin, enteric coated (ASPIRIN, ENTERIC COATED) 81 mg EC tablet Take 81 mg by mouth once daily.03/01/2017 neomycin/polymyxin b/dexametha(MAXITROL 3.5 MG/G-10,000 UNIT/G-0.1 % EYE OINTMENT) Apply to lids/lashes Both eyes at bedtime until gone 3.5 g 10/25/2023 spironolactone (ALDACTONE) 12.5 mg tab 01/30/2023 gemfibrozil (LOPID) 600 mg tablet Take 600 mg by mouth.03/01/2017 lisinopril (ZESTRIL, PRINIVIL) 10 mg tablet Take 10 mg by mouth.03/01/2017 rosuvastatin (CRESTOR) 40 mg tablet Take 40 mg by mouth once daily. furosemide (LASIX ORAL) Take 20 mg by mouth.03/01/2017 metoprolol succinate ER (TOPROL XL) 50 mg 24 hr tablet q 24 HR.03/01/2017 omeprazole (PRILOSEC) 20 mg capsule omeprazole 20 mg capsule,delayed release TAKE 2 CAPSULES BY MOUTH EVERY DAYdocumented as of this encounter H&P Notes * Barber Bell DO - 07/09/2025 10:52 AM EST PROCEDURAL HISTORY AND PHYSICAL EXAM SERVICE DATE and TIME: July 09, 2025 at 10:52 AM The History and Physical (completed in the past 30 days) has been reviewed and the patient has beenexamined. The contents accurately reflect the patient's condition with the following additions or revisions since the H&P was completed. Patient referred by Barber Bell DO. ASSESSMENT AND PLAN Lumbar foraminal stenosis Patient here today for Bilateral S1 transforaminal epidural steroid injections. SUBJECTIVE HPI: This is a 65 year old male who presents with pain located bilateral low back to buttocks, sometimes to posterior thighs. Pain today is 2-3/10, but can get up to 5/10 at worst. PAST MEDICAL HISTORY: PAST MEDICAL HISTORY Diagnosis Date Asthma Diverticulosis Elevated liver enzymes Fracture, ankle left Hyperlipidemia Hypertension Hypertriglyceridemia Kidney stones JOSE (obstructive sleep apnea) CPAP Osteoarthritis PAST SURGICAL HISTORY: PAST SURGICAL HISTORY Procedure Laterality Date BACK SURGERY HX 07/17/2005 herniated disc by Tamia BUNDY PTCA STENT COLONOSCOPY 07/17/2012 MEDICATIONS: Prior to Admission medications as of 07/09/25 0942 Medication Sig Last Dose Taking semaglutide, weight loss, (WEGOVY) 0.25 mg/0.5 mL pen injector Inject 0.25 mg subcutaneously one time a week. Yes aspirin, enteric coated (ASPIRIN, ENTERIC COATED) 81 mg EC tablet Take 81 mg by mouth once daily. 07/08/2025 Yes neomycin/polymyxin b/dexametha(MAXITROL 3.5 MG/G-10,000 UNIT/G-0.1 % EYE OINTMENT) Apply to lids/lashes Both eyes at bedtime until gone spironolactone (ALDACTONE) 12.5 mg tab gemfibrozil (LOPID) 600 mg tablet Take 600 [...] TAKE 2 CAPSULES BY MOUTH EVERY DAY ALLERGIES: Allergies Allergen Reactions Atorvastatin Unknown Other Reaction(s): Not available OBJECTIVE PHYSICAL EXAM: VITAL SIGNS: 07/09/25 0941 07/09/25 0943 BP: 134/88 Pulse: 75 Resp: 17 Temp: (!) 35.8 ??C (96.4 ??F) TempSrc: Temporal Artery SpO2: 99% Weight: 90.7 kg (200 lb) AIRWAY: Patent, Full neck flexion and extension, Uvula visible RESP: Non-labored breathing. CV: Extremities are warm and well-perfused. Motor: 5/5 bilateral lower extremities The remainder of the physical exam is noncontributory. Risk, benefits, medications, personnel, and process of the procedure was explained to the patient with explicit agreement by patient or patient dermatology sales representative to proceed before procedure. SIGNATURE: Barber Bell DO PATIENT NAME: Bhavesh Thacker DATE: July 09, 2025 TIME: 10:52 AM documented in this encounter Nursing Notes * Kalie Tompkins RN - 07/09/2025 11:40 AM ESTSummary: Postop call Documenting your pain relief on the day of the procedure before the local anesthetic medication wears off is very important in acquiring insurance approval. It's very important that we document your pain scores only of the area treated, so we are asking you to tell us the score of the pain when youare or were doing things that typically cause pain in that treated area (e.g., standing/walking, twisting/reaching). All scores are on a 0-10 scale. 0 is NO pain and 10 is the worst pain you can imagine. For percentage of pain relief - 100% is complete pain relief 1. What was your pain score with the painful activity prior to the procedure? 2-09/23 2. What is your percentage of pain relief when doing the activities that previously caused you pain?Patient states 50% pain relief after his procedure. 3. What is your pain level today? 1-08/26 Your physician will review your pain scores to determine the next step of your care documented in this encounter OR Notes * Operative Report - Barber Bell DO - 07/09/2025 10:57 AM EST PROCEDURE REPORT Surgery/Procedure Date: July 09, 2025 Interventionalist: Barber Bell DO Procedure(s): Bilateral S1 transforaminal epidural steroid injections Pre-Op/Pre-Procedure Diagnosis: Lumbar foraminal stenosis Post-Op Diagnosis: same SUBJECTIVE: Bhavesh Thacker is a 65 year old male, who presents to [facility] [place] for a bilateral S1 transforaminal epidural steroid injection. He states he is NPO and has adriver for return home. 65 year old male who presents with pain located bilateral low back to buttocks, sometimes to posterior thighs. Pain today is 2-3/10, but can get up to 5/10 at worst. I have reviewed the nurses notes and am aware of the patient's history. OBJECTIVE: Vital signs are documented in the paper chart prior to and throughout the procedure. INFORMED CONSENT: Risks, benefits, alternatives and personnel discussed with patient who consents to proceed. A formal sign in and timeout with team members and patient present were performed prior to procedure start/delivery of medication. PROCEDURE: Procedure: Bilateral S1 Transforaminal Epidural Steroid Injection Bhavesh Thacker was transferred to the Block Room. Time out was performed. After placement of routine monitors (blood pressure, pulse oximetry, and heart rate monitored by dedicated nurse), the procedure was performed in the usual manner. Sedation: No Procedure Start time: 1101 Procedure Stop time: 1117 Fluoroscopy time: 39 seconds Estimated blood loss: none Level: bilateral S1 Technique: Patient positioned prone. Procedure area was prepped with Betadine and draped with sterile coverings. An oblique approach was used with C-arm guidance. The skin was anesthetized with 1% lidocaine. A #22 gauge short-bevel spinal needle was inserted to the proper location within the intervertebral foramen using intermittent fluoroscopy. Position was confirmed with iohexol contrast under live fluoroscopy. Needle position was verified in two views and epidurogram was visualized and recorded. 7.5 mg of dexamethasone and 2.25 cc of lidocaine 1% was injected per side. The spinal needle was then removed. Adequate hemostasis was obtained at the needle puncture site. The patient's back was cleaned and a sterile dressing was applied. Patient tolerated the procedure well and was taken conscious and in stable condition to the recovery room for observation. Patient had a vagal response after injection of medication on the right side, he noted feeling hot and his heart rate dropped to the40s and systolic blood pressure to the 90s. Cold pack was placed on his upper back. He was able to tolerate completing the injection on the left side. Vitals were already improving before procedure was completed on the left side. No syncope. No other complications as a result of this procedure. Post procedure precautions and instructions were reviewed with the patient who verbalized understanding. I/primary surgeon/proceduralist performed the procedure alone. No complications were encountered. Estimated blood loss: none Specimens: none Implanted devices: none Drains: none Post procedure physical exam unchanged from pre procedure. Significant findings: Cephalad 10 Oblique 10 right Oblique 15 left Patient had a vagal response after injection of medication on the right side, he noted feeling hot and his heart rate dropped to the 40s and systolic blood pressure to the 90s. Cold pack was placed on his upper back. He was able to tolerate completing the injection on the left side. Vitals were already improving before procedure was completed on the left side. ASSESSMENT: Pre Procedure diagnosis: Lumbar foraminal stenosis Post-Procedure diagnosis: same Pre Procedure Pain Level: same as above Post Procedure Pain Level: as documented in nursing notes and paper chart Purposeful response to verbal or tactile stimulation: Yes PLAN: Post-procedure instructions reviewed with patient. Patient is to complete post-procedure pain diary and follow up with the ordering provider. Patient is to contact our office with any question or if any side effects are noted. Bhavesh Thacker was transferred to the recovery room and is to be discharged home in stable condition. Barber Bell DO documented in this encounter Plan of Treatment DateTypeDepartmentCare Team (Latest Contact Info)Viatjsebxmp22/02/2026 4:20 PM [facility] Spine Medicine [address] [place] [address] Barber Bell DO [address] [place] [address] Ordering Provider Via Virtual Visit: 2-4 weeksdocumented as of this encounter Visit Diagnoses Diagnosis Lumbar foraminal stenosis Spinal stenosis, lumbar region, without neurogenic claudication documented in this encounter Active and Recently Administered Medications Times are shown in EST.Medication Order dexAMETHasone sodium phosphate injection (DECADRON) (CANCELED) X (OR/PROCEDURE) PRN, Starting on Mon07/09/25 at 1107, Until Mon07/09/25 at 1123, Intraprocedure * 1117 (Given - Provider: Barber Bell DO) iohexol injection (OMNIPAQUE 300) (CANCELED) X (OR/PROCEDURE) PRN, Starting on Mon07/09/25 at 1108, Until Mon07/09/25 at 1123, Intraprocedure * 1118 (Given - Provider: Barber Bell DO) lidocaine 10 mg/mL (1 %) injection (XYLOCAINE) (CANCELED) X (OR/PROCEDURE) PRN, Starting on Mon07/09/25 at 1108, Until Mon07/09/25 at 1123, Intraprocedure * 1118 (Given - Provider: Barber Bell DO) documented in this encounter Care Teams Team MemberRelationshipSpecialtyStart DateEnd Date Maria D Wiggins PA-C PCP - GeneralFamily Medicine02/14/14documented as of this encounter
--- OUTSIDE RECORDS SUMMARY | 2025-07-09 10:30 | XMS_ITS | Encounter Summary ---
Author Organization [facility] Address [address] [place] [address] Care Team Providers Care Ore Smelter Name Role Phone Maria D Wiggins PA-C Primary Care Provider Source Comments In the event this information is protected by the Federal Confidentiality of Alcohol and Drug AbusePatient Records regulations: The Federal rules restrict any use of the information to criminally investigate or prosecute any alcohol or drug abuse patient.[facility] Reason for Visit * Auth/Cert (Routine)SpecialtyDiagnoses / ProceduresReferred By ContactReferred To ContactPAIN MANAGEMENT Diagnoses Cervical spondylosis without myelopathy Cervical spondylosis without myelopathy [M47.812] Procedures NJX AA&/STRD TFRML EPI LUMBAR/SACRAL 1 LEVEL INJECTION(S) STEROID TRANSFORAMINAL EPIDURAL LUMBAR W/IMAGE GUIDANCE FLUORO OR CT Pain Management [address] [place] [address] Phone: tel: Referral IDStatusReasonStart DateExpiration DateVisits RequestedVisits [id number] Encounter Details DateTypeDepartmentCare Team (Latest Contact Info)Kduccsmldib93/24/2025 10:30 AM EST - 07/09/2025 11:00 AM ESTSurgery Pain Management [address] [facility] [place] [address] Barber Bell, DO [address] [place], [place] [id number] INJECTION(S) STEROID TRANSFORAMINAL EPIDURAL LUMBAR W/IMAGE GUIDANCE FLUORO OR CT Social History Tobacco UseTypesPacks/DayYears UsedDateSmoking Tobacco: [id number] - 2001Smokeless Tobacco: NeverAlcohol UseStandard Drinks/WeekCommentsNot Currently0 (1 standard drink = 0.6 oz pure alcohol)PHQ-2AnswerDate RecordedPHQ-2 vzwhd205rea Deprivation IndexAnswerDate RecordedNational Score (1- 100), lower number is lower kmkz210512/15/2022State Score (1-10), lower number is lower qtwd071ata from: https://www.neighborhoodatlas.medicine.[facility].edu/. Last address used for calculation[address] [place] 12/15/2022Sex and Gender InformationValueDate Recorded Sex Assigned at BirthNot on fileLegal OlnZile8702/14/2014 9:49 AM EDTGender IdentityNot on fileSexual OrientationNot on fileOccupationIndustryJob Start Date Job End DateCar DealerNot on fileNot on fileNot on filedocumented as of this encounter Last Filed Vital Signs Vital SignReadingTime TakenCommentsBlood Srujgxxq937/8612 11:00 AM EST Uytrl456107/09/2025 9:43 AM VAWAsgqmhzwcpe54.8 ??C (96.4 ??F)07/09/2025 9:43 AM ESTRespiratory Skqd254709/09/2024 9:43 AM ESTOxygen Offscpzpcw93%07/09/2025 11:00 AM ESTInhaled Oxygen Concentration--Menbet49.7 kg (200 lb)07/09/2025 9:41 AM EST Height--Body Mass Index28.708 2:05 PM EDTdocumented in this encounter Functional Status * Are you deaf or do you have serious difficulty hearing?AnswerDate of FdoyadwtezHhpxemRat74/24/2015 2:33 PM Ashley Lees LPN * Are you blind or do you have serious difficulty seeing, even when wearing glasses?AnswerDate of SpjxweanhcAvaztwGo84/24/2015 2:33 PM Ashley Lees LPN * Do you have serious difficulty walking or climbing stairs?AnswerDate of LmejsdsmagOssvtyEd22/24/2015 2:33 PM Ashley Lees LPN * Do you have difficulty dressing or bathing?AnswerDate of AssessmentAuthorYes 11/07/2014 2:33 PM Ashley Lees LPN * Because of a physical, mental, or emotional condition, do you have difficulty doing errands alone such as visiting a doctor's office or shopping?AnswerDate of GawhnrzuamCfokvaGyr75/24/2015 2:33 PM Ashley Lees LPN documented as of this encounter Mental Status * Because of a physical, mental, or emotional condition, do you have serious difficulty concentrating, remembering, or making decisions?AnswerEntry Date YmmdpdWo29/24/2015 2:33 PM Ashley Lees LPN documented in [...] with explicit agreement by patient or patient customer service representative teller to proceed before procedure. SIGNATURE: Barber Bell [...] the painful activity prior to the procedure? 2-10 2. What is your percentage of pain relief when doing the activities that previously caused you pain?Patient states 50% pain relief after his procedure. 3. What is your pain level today? 1-2 Your physician will review your pain scores [...] year old male, who presents to the [facility] [place] for a bilateral S1 transforaminal epidural steroid [...] if any side effects are noted. Bhavesh Thakcer was transferred to the recovery room and is to be discharged home in stable condition. Barber Bell DO documented in this encounter Plan of Treatment DateTypeDepartmentCare Team (Latest Contact Info)Pyjhbgcwdrn25/02/2026 4:20 PM [facility] Spine Medicine [address] [place] [address] Barber Bell DO [address], [place] [id number] Ordering Provider Via Virtual Visit: 2-4 weeksdocumented as of this encounter Visit Diagnoses Diagnosis Cervical spondylosis without myelopathy documented in this encounter Administered Medications Medication OrderMAR ActionAction DateDoseRateSite dexAMETHasone sodium phosphate injection (DECADRON) X (OR/PROCEDURE) PRN, Starting on Mon07/09/25 at 1107, Until Mon07/09/25 at 1123, Intraprocedure Given07/09/2025 11:17 AM EST15 mg iohexol injection (OMNIPAQUE 300) X (OR/PROCEDURE) PRN, Starting on Mon07/09/25 at 1108, Until Mon07/09/25 at 1123, Intraprocedure Given07/09/2025 11:18 AM EST3 mL lidocaine 10 mg/mL (1 %) injection (XYLOCAINE) X (OR/PROCEDURE) PRN, Starting on Mon07/09/25 at 1108, Until Mon07/09/25 at 1123, Intraprocedure Given07/09/2025 11:18 AM EST6.5 mLdocumented in this encounter Active and Recently Administered Medications Times are shown in EST.Medication Order// dexAMETHasone sodium phosphate injection (DECADRON) (CANCELED) X [...]
--- OUTSIDE RECORDS SUMMARY | 2025-07-16 13:54 | XMS_ITS | Encounter Summary ---
Author Organization [facility] Address [address] [place] [address] Care Team Providers Care Mounter Flutes And Piccolos Name Role Phone Maria D Wiggins PA-C Primary Care Provider Source Comments In the event this information is protected by the Federal Confidentiality of Alcohol and Drug AbusePatient Records regulations: The Federal rules restrict any use of the information to criminally investigate or prosecute any alcohol or drug abuse patient.[facility] Encounter Details DateTypeDepartmentCare Team (Latest Contact Info)Siqkvqafcdv31/16/2025 Patient Msg Pain Management [address] [id number] Brisa Dos Santos RN [address] [place] [address] Bell Social History Tobacco UseTypesPacks/DayYears UsedDateSmoking Tobacco: [id number] - 2001Smokeless Tobacco: NeverAlcohol UseStandard Drinks/WeekCommentsNot Currently0 (1 standard drink = 0.6 oz pure alcohol)PHQ-2AnswerDate RecordedPHQ-2 ayeoo5645Area Deprivation IndexAnswerDate RecordedNational Score (1-100), lower number is lower rwfl8217/01/2023State Score (1-10), lower number is lower dggp108ata from: https://www.neighborhoodatlas.medicine.[facility]/. Last address used for calculation[address] [place] 12/15/[birth year]22Sex and Gender Information ValueDate RecordedSex Assigned at BirthNot on fileLegal EgxXhpd1702/14/2014 9:49 AM EDTGender IdentityNot on fileSexual OrientationNot on fileOccupationIndustry Job Start DateJob End DateCar DealerNot on fileNot on fileNot on filedocumented as of this encounter Functional Status * Are you deaf or do you have serious difficulty hearing?AnswerDate of NickjowsdyAsxukqKfd15/24/2015 2:33 PM Ashley Lees LPN * Are you blind or do you have serious difficulty seeing, even when wearing glasses?AnswerDate of UmzdtbbmejEynbrpOw82/24/2015 2:33 PM Ashley Lees LPN * Do you have serious difficulty walking or climbing stairs?AnswerDate of FouqbqaealSiaynxZd22/24/2015 2:33 PM Ashley Lees LPN * Do you have difficulty dressing or bathing?AnswerDate of AssessmentAuthorYes 11/07/2014 2:33 PM Ashley Lees LPN * Because of a physical, mental, or emotional condition, do you have difficulty doing errands alone such as visiting a doctor's office or shopping?AnswerDate of ZmvxzbjpnfIuflehBtg62/24/2015 2:33 PM Ashley Lees LPN documented as of this encounter Mental Status * Because of a physical, mental, or emotional condition, do you have serious difficulty concentrating, remembering, or making decisions?AnswerEntry Date RdydpcRe33/24/2015 2:33 PM Ashley Lees LPN documented in this encounter Miscellaneous Notes * Telephone Encounter - Brisa Dos Santos RN - 07/07/2025 9:26 AM EST Called patient to review pre procedure instructions and arrival time of procedure with Dr Bell on07/09/2025 Reviewed with patient if he: is on antibiotics: no Have cough, cold, illness: no Open wounds or sores: no Is on anticoagulants/antiplatelets: yes, aspirin 81 mg will hold am of procedure Patient education included: 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 Verbalized agreement. Patient verbalized understanding of instructions and agreement: yes, Brisa BORGES animal assistant documented in this encounter Plan of Treatment DateTypeDepartmentCare Team (Latest Contact Info)Zadbnnlbvlb54/02/2026 4:20 PM [facility] Spine Medicine [address] [place] [address] Barber Bell, [address] [place] [address] Ordering Provider Via Virtual Visit: 2-4 weeksdocumented as of this encounter Visit Diagnoses Not on filedocumented in this encounter Care Teams Team MemberRelationshipSpecialtyStart DateEnd Date Maria D Wiggins PA-C PCP - GeneralFamily Medicine02/14/14documented as of this encounter
--- OUTSIDE RECORDS SUMMARY | 2025-07-16 13:55 | XMS_ITS | Encounter Summary ---
Author Organization [facility] Address [address] [place] [id number] Care Team Providers Care Casting And Curing Operator Name Role Phone Maria D Wiggins PA-C Primary Care Provider Source Comments In the event this information is protected by the Federal Confidentiality of Alcohol and Drug AbusePatient Records regulations: The Federal rules restrict any use of the information to criminally investigate or prosecute any alcohol or drug abuse patient.[facility] Encounter Details DateTypeDepartmentCare Team (Latest Contact Info)Cypkpyhepzi21/24/2025Travel Social History Tobacco UseTypesPacks/DayYears UsedDateSmoking Tobacco: [id number] - 2001Smokeless Tobacco: NeverAlcohol UseStandard Drinks/WeekCommentsNot Currently0 (1 standard drink = 0.6 oz pure alcohol)PHQ-2AnswerDate RecordedPHQ-2 [id number] Deprivation IndexAnswerDate RecordedNational Score (1-100), lower number is lower adqx617212/15/2022State Score (1-10), lower number is lower [id number] from: https://www.neighborhoodatlas.medicine.[facility].edu/. Last address used for calculation[address]12/[birth year]22Sex and Gender Information ValueDate RecordedSex Assigned at BirthNot on fileLegal FcjYivm0102/14/2014 9:49 AM EDTGender IdentityNot on fileSexual OrientationNot on fileOccupationIndustry Job Start DateJob End DateCar DealerNot on fileNot on fileNot on filedocumented as of this encounter Functional Status * Are you deaf or do you have serious difficulty hearing?AnswerDate of WfilyxvlpkUzkuojZac63/24/2015 2:33 PM Ashley Lees LPN * Are you blind or do you have serious difficulty seeing, even when wearing glasses?AnswerDate of PcazyydupsCnpqcjYl91/24/2015 2:33 PM Ashley Lees LPN * Do you have serious difficulty walking or climbing stairs?AnswerDate of IottxerpltTaxoqmZv82/24/2015 2:33 PM Ashley Lees LPN * Do you have difficulty dressing or bathing?AnswerDate of AssessmentAuthorYes 11/07/2014 2:33 PM Ashley Lees LPN * Because of a physical, mental, or emotional condition, do you have difficulty doing errands alone such as visiting a doctor's office or shopping?AnswerDate of XxejsufdcdKoxgerOyi28/24/2015 2:33 PM Ashley Lees LPN documented as of this encounter Mental Status * Because of a physical, mental, or emotional condition, do you have serious difficulty concentrating, remembering, or making decisions?AnswerEntry Date BapitnWo97/24/2015 2:33 PM Ashley Lees LPN documented in this encounter Plan of Treatment DateTypeDepartmentCare Team (Latest Contact Info)Qtyqbolkmdq64/02/2026 4:20 PM [facility] [address] [place] [address] Barber Bell DO [address] [place] [address] Ordering Provider Via Virtual Visit: 2-4 weeksdocumented as of this encounter Visit Diagnoses Not on filedocumented in this encounter Care Teams Team MemberRelationshipSpecialtyStart DateEnd Date Maria D Wiggins PA-C PCP - GeneralFamily Medicine02/14/14documented as of this encounter
--- OUTSIDE RECORDS SUMMARY | 2025-07-16 13:55 | XMS_ITS | Clinical Summary ---
Author Organization [facility] Address [address] [place] [address] Care Team Providers Care Product Safety Compliance Leader Name Role Phone Claudia Gonzalez MD Primary Care Provider [phone] Maria D Wiggins Unavailable [phone] Allergies Active AllergyReactionsCriticalityNoted PgaxScnxnrycZnanfpzxekfx02/29/2022 Other Reaction(s): Not available Medications MedicationSigDispense QuantityRefillsLast FilledStart DateEnd DateStatus atorvastatin (Lipitor) 80 MG tablet Active dapagliflozin (Farxiga) 10 MG Take 10 mg by mouth in the morning.03/16/2023ctive desvenlafaxine (Pristiq) 50 MG 24 hr tablet Take 1 tablet by mouth in the morning.Active gemfibrozil (Lopid) 600 MG tablet Take 600 mg by mouth in the morning and 600 mg in the evening.05/05/2023ctive lisinopril 10 MG tablet Take 10 mg by mouth in the morning.05/05/2023ctive omeprazole (PriLOSEC) [address] capsule Take 40 mg by mouth05/05/2023ctive rosuvastatin (Crestor) 40 MG tablet Take 40 mg by mouth at broqfvk1305/05/2023ctive sildenafil (Revatio) 20 MG tablet Active spironolactone (Aldactone) 25 MG tablet Take 12.5 mg by mouth in the morning.03/13/2023ctive metoprolol succinate XL (Toprol-XL) 25 MG 24 hr tablet Take 25 mg by mouth Daily06/11/2023ctive azithromycin (Zithromax) 250 MG tablet Indications:Chronic frontal sinusitisTake 2 tabs PO x 1 day then 1 tab PO daily x 4 days 6 tablet ctive Additional Information Patient not taking.Reported on 11/28/2024 aspirin 81 MG EC tablet Take 81 mg by mouth DailyActive Active Problems ProblemNoted DateDiagnosed DateDry eyes5Blepharitis of upper and lower eyelids of both eyes02/12/20256981Mazkcatshldo80/30/2025hronic frontal sinusitis 11/16/2023 Encounters DateTypeDepartmentCare CtahAfdpnnizaij78/20/2025linisync Result Encounter [facility] Unsolicited Provider, Generic External Data from Last 3 Months Social History Tobacco UseTypesPacks/DayYears UsedDateSmoking Tobacco: NeverSmokeless Tobacco: Never Tobacco Cessation:Counseling Given: Not Answered Alcohol UseStandard Drinks/WeekCommentsNever0 (1 standard drink = 0.6 oz pure alcohol)Social Connection and Isolation PanelAnswerDate RecordedIn a typical week, how many times do you talk on the phone with family, friends, or neighbors?Patient uvpernzx87/02/2024How often do you get together with friends or relatives?Patient terhatog58/02/2024How often do you attend jainism or buddhist services?Patient tbtsikav44/02/2024o you belong to any clubs or organizations such as jainism groups, unions, fraternal or athletic groups, or school groups?Patient blcidvjr34/02/2024How often do you attend meetings of the clubs or organizations you belong to?Patient okhwbriz83/02/2024re you , , , , never , or living with a partner?Patient adwmexuc95/02/2024UDIT-CAnswerDate RecordedQ1: How often do you have a drink containing alcohol?Patient jgkluckw85/02/2024Q2: How many drinks containing alcohol do you have on a typical day when you are drinking?Patient declined 11/16/2023Q3: How often do you have six or more drinks on one occasion?Patient cagfyamu86/02/2024Overall Financial Resource Strain (CARDIA)AnswerDate Recorded How hard is it for you to pay for the very basics like food, housing, medical care, and heating?Patient aihpxghf95/02/2024[facility] [place] [facility] Occup[facility] - Occupational Stress QuestionnaireAnswerDate RecordedDo you feel stress - tense, restless, nervous, or anxious, or unable to sleep at night because your mind is troubled all the time - these days?Patient evjwiblt56/02/2024Exercise Vital SignAnswerDate RecordedOn average, how many days per week do you engage in moderate to strenuous exercise (like a brisk walk)?0 days11/16/2023On average, how many minutes do you engage in exercise at this level?0 min11/16/2023Hunger Vital SignAnswerDate RecordedWithin the past 12 months, you worried that your food would run out before you got the money to buymore.Patient declined 11/16/2023Within the past 12 months, the food you bought just didn't last and you didn't have money to get more.Patient xjvuyamd72/02/2024RAPARE - TransportationAnswerDate RecordedIn the past 12 months, has lack of transportation kept you from medical appointments or from getting medications? Patient xnrjixuo76/02/2024In the past 12 months, has lack of transportation kept you from meetings, work, or from getting things needed for daily living?Patient rxkbligd75/02/2024Housing Stability Vital SignAnswerDate RecordedIn the last 12 months, was there a time when you were not able to pay the mortgage or rent on time?Patient /02/2024Number of Places Lived in the Last YearNot on file11/16/2023In the last 12 months, was there a time when you did not have a steady place to sleep or slept in [facility] (including now)?Patient declined 11/16/2023Sex and Gender InformationValueDate RecordedSex Assigned at BirthNot on fileLegal PylAcwj6109/28/2022 7:11 PM EDTGender IdentityNot on fileSexual OrientationNot on file Last Filed Vital Signs Vital SignReadingTime TakenCommentsBlood Fzqhkwzo001/76011/04/2022 12:00 PM EDT Pulse--Rovkkuunmsr90.4 ??C (97.6 ??F)09/12/2023 3:09 PM ESTRespiratory Rate-- Oxygen Saturation--Inhaled Oxygen Concentration--Poyaec07.7 kg (200 lb) 11/28/2024 3:40 PM MLVZodtvf447.8 cm (5' 10 )11/28/2024 3:40 PM EDTBody Mass Index28.7011/28/2024 3:40 PM EDT Plan of Treatment Health MaintenanceDue DateLast DoneCommentsCT Nlnyrbxjgsrx1961FIT-DNA 1961FIT1961FOBT1961 0332Ftfklvwuwvjdu1961neumococcal Vaccine: Pediatrics (0 to 5 Years) and At-Risk Patients (6 to 64 Years) (1 of 2 - PCV)1980Influenza Vaccine (#1)/03/2024, 05/31/2022, 05/24/2018, Additional history svxmxfWencturnrjz93Colorectal Cancer Ykhbyizbv51/17/2027 Procedures Procedure NamePriorityDate/TimeAssociated DiagnosisCommentsALL LIPID PROFILE (FASTING)Twthvvj7506/05/2025 11:09 AM EST [facility] CMP (CMP) (FOR REMOTE [facility] USE)Ougdtxc2906/05/2025 11:09 AM EST ALL CBC WITH AUTO WZHBExishzh35/20/2025 11:09 AM EST DYZMNKZVPPUGyqgxnl39/17/2017 12:00 PM EDT from Last 3 Months or Most Recently Relevant to Health Maintenance Results * (ABNORMAL) [facility] CMP (CMP) (FOR REMOTE [facility] USE) (06/05/2025 11:09 AM EST) ComponentValueRef RangeTest MethodAnalysis TimePerformed AtPathologist GaorsudmfNWWGUZ499(L)136 - 145 mmol/LTBHPOTASSIUM4.23.5 - 5.1 mmol/LTBH YDGMTUVJ49(L)98 - 107 mmol/LTBHCARBON IIYILPL74.021.0 - 32.0 mmol/LTBHANION GAP12.4PGJZLWFXVV919(H)74 - 106 mg/dLTBHBLOOD UREA SLLNYATC36.07.0 - 18.0 mg/dLTBHCREATININE1.020.70 - 1.30 mg/dLTBHTBH EGFR-AF SYRIAN>60>=60 mL/min/1.73m 2TBHTBH EGFR-NON AF SYRIAN>60>=60 mL/min/1.73m 2TBHBUN CREATININE RATIO13.1KWCSPLHCVI6.78.5 - 10.1 mg/dLTBHBILIRUBIN TOTAL0.80.2 - 1.0 mg/dLTBHASPARTATE AMINO RUDYRHFPBYO71(H)15 - 37 U/LTBHALANINE CLCABXMMWICGKUYN17(H)16 - 63 U/LTBHALKALINE IIMXBTUGYYW1264 - 116 U/LTBHTOTAL PROTEIN7.56.4 - 8.2 g/dLTBHALBUMIN LEVEL4.33.4 - 5.0 g/dLTBHGLOBULIN3.2g/dLTBH ALBUMIN GLOBULIN RATIO1.3TBHSpecimen (Source)Anatomical Location / Laterality Collection Method / VolumeCollection TimeReceived Time06/05/2025 11:09 AM EST 06/05/2025 11:18 AM EST Narrative CLINISYNC - 06/05/2025 12:06 PM EST Authorizing ProviderResult TypeResult StatusGeneric External Data Provider CLINISYNCFinal ResultPerforming OrganizationAddressCity/State/ZIP CodePhone Number [facility] * (ABNORMAL) ALL LIPID PROFILE (FASTING) (06/05/2025 11:09 AM EST)ComponentValue Ref RangeTest MethodAnalysis TimePerformed AtPathologist Signature IFONFNWZGIAKY186(H)<=150 mg/dMOKMAGNKLSHZIPC991<=200 mg/dLTBHHDL SXRXDXINVMU55 (H)40 - 60 mg/dLTBHComment: > or =60 mg/dl - LOW CARDIOVASCULAR RISK <40 mg/dl - HIGH CARDIOVASCULAR RISK LDL CHOLESTEROL JCBVUBASJR79.0mg/dLTBHComment: <100 mg/dl OPTIMAL 100-129 mg/dl NEAR OR ABOVE OPTIMAL 130-159 mg/dl BORDERLINE HIGH 160-189 mg/dl HIGH >190 mg/dl VERY HIGH VLDL UNWUGEWSKAE06.8mg/dLTBHCHOL HDL RATIO2.4TBHComment: 3.3 - 4.4 ?? LOW RISK 4.4 - 7.1 ?? AVERAGE RISK 7.1 - 11.0 ??MODERATE RISK >11.0 HIGH RISK Specimen (Source)Anatomical Location / LateralityCollection Method / Volume Collection TimeReceived Time06/05/2025 11:09 AM EST06/05/2025 11:18 AM EST Narrative CLINISYNC - 06/05/2025 12:06 PM EST Authorizing ProviderResult TypeResult StatusGeneric External Data Provider CLINISYNCFinal ResultPerforming OrganizationAddressCity/State/ZIP CodePhone Number [facility] * (ABNORMAL) ALL CBC WITH AUTO DIFF (06/05/2025 11:09 AM EST)ComponentValueRef RangeTest MethodAnalysis TimePerformed AtPathologist SignatureTBH WBC5.64.0 - 11.0 10 3/uLTBHTBH RBC4.66(L)4.70 - 6.10 10 6/uLTBHTBH HGB15.314.0 - 18.0 g/dL TBHTBH HCT44.842.0 - 54.0 %TBHTBH MCV96.1(H)80.0 - 94.0 fLTBHTBH MCH32.825.9 - 34.0 pgTBHTBH MCHC34.229.9 - 35.2 g/dLTBHTBH RDW11.311.0 - 15.0 %TBHTBH RJT096 150 - 450 10 3/uLTBHTBH MPV8.0(L)9.5 - 13.5 fLTBHNEUTROPHILS PERCENT AUTO52.0 43.0 - 75.0 %TBHLYMPHOCYTES PERCENT AUTO29.720.5 - 60.0 %TBHMONOCYTES PERCENT AUTO11.71.7 - 12.0 %TBHTBH EO %5.50.9 - 7.0 %TBHBASOPHILS PERCENT AUTO0.90.2 - 2.0 %TBHIMMATURE GRANULOCYTES PCT AUTO0.20.0 - 0.5 %TBHNEUTROPHILS ABSOLUTE AUTO2.91.4 - 6.5 10 3/uLTBHLYMPHOCYTES ABSOLUTE AUTO1.71.2 - 3.8 10 3/uLTBH MONOCYTES ABSOLUTE AUTO0.70.3 - 0.8 10 3/uLTBHTBH EO #0.30.0 - 0.7 10 3/uLTBH BASOPHILS ABSOLUTE AUTO0.10.0 - 0.1 10 3/uLTBHIMMATURE GRANULOCYTES ABS AUTO 0.010.00 - 0.03 10 3/uLTBHSpecimen (Source)Anatomical Location / Laterality Collection Method / VolumeCollection TimeReceived Time06/05/2025 11:09 AM EST 06/05/2025 11:18 AM EST Narrative CLINISYNC - 06/05/2025 11:41 AM EST Authorizing ProviderResult TypeResult StatusGeneric External Data Provider CLINISYNCFinal ResultPerforming OrganizationAddressCity/State/ZIP CodePhone Number [facility]FORM[facility]LY [facility] * Colonoscopy (03/02/2017 12:00 PM EDT)Anatomical RegionLateralityModality EndoscopySpecimen (Source)Anatomical Location / LateralityCollection Method / VolumeCollection TimeReceived Time03/02/2017 12:00 PM EDT Narrative 03/02/2017 12:00 PM EDT PERFORMED AT [facility] LOCATION:[id number] Procedure Note CONVERSION, GENERIC - 12/01/2022 PERFORMED AT [facility] LOCATION:[id number] Authorizing ProviderResult TypeResult StatusRosarua Moseley MDENDOSCOPY PROCEDURE ORDERABLESFinal Result from Last 3 Months or Most Recently Relevant to Health Maintenance Insurance Care Teams Team MemberRelationshipSpecialtyStart DateEnd Claudia Gonzalez MD [address] [place] [address] PCP - GeneralFamily Medicine12/06/24 Maria D Wiggins PA [address] [place] [address] Physician Assistantmily Medicine12/06/24
--- OUTSIDE RECORDS SUMMARY | 2025-07-16 13:55 | XMS_ITS | Clinical Summary ---
Author Organization [facility] Address [address] [place] [address] Care Team Providers Care System Developer Associate Manager Name Role Phone Maria D Wiggins MD Primary Care Provider [phone] Allergies No known active allergies Medications MedicationSigDispense QuantityRefillsLast FilledStart DateEnd DateStatus gemfibrozil (Lopid) 600 mg tablet Indications:Mixed hyperlipidemiaTAKE 1 TABLET(600 MG) BY MOUTH IN THE MORNING AND AT BEDTIME 180 tablet 5Active lisinopril 10 mg tablet Indications:Heart failure with improved ejection fraction (HFimpEF) (CMS/HCC) Take 1 tablet (10 mg) by mouth once daily as directed. 90 tablet tive omeprazole (PriLOSEC) [address] capsule Indications:Coronary artery disease involving modoc coronary artery of modoc heart without angina pectorisTake 1 capsule (20 mg) by mouth two times daily. 180 capsule 5Active aspirin 81 mg chewable tablet Indications:Coronary artery disease involving modoc coronary artery of modoc heart without angina pectorisChew 1 tablet (81 mg) once daily as directed. 90 tablet tive dapagliflozin propanediol (Farxiga) 10 mg Indications:Heart failure with improved ejection fraction (HFimpEF) (CMS/HCC) Take 1 tablet (10 mg) by mouth once daily as directed. 90 tablet ctive metoprolol succinate XL (Toprol-XL) 25 mg 24 hr tablet Indications:Coronary artery disease involving modoc coronary artery of modoc heart without angina pectorisTake 1 tablet (25 mg) by mouth once daily as directed. Do not crush or chew. 90 tablet 312/03/346174/03/2026Active rosuvastatin (Crestor) 40 mg tablet Indications:Mixed hyperlipidemiaTake 1 tablet (40 mg) by mouth at bedtime. 90 tablet 5Active ezetimibe (Zetia) 10 mg tablet Indications:Mixed hyperlipidemiaTake 1 tablet (10 mg) by mouth once daily as directed. 90 tablet 5Active spironolactone (Aldactone) 25 mg tablet Indications:Heart failure with improved ejection fraction (HFimpEF) ([facility]) TAKE 1/2 TABLET(12.5 MG) BY MOUTH EVERY MORNING 45 tablet 5Active semaglutide, weight loss, (Wegovy) 0.25 mg/0.5 mL pen injector Indications:Coronary arteriosclerosis,JOSE (obstructive sleep apnea),Heart failure, unspecified HF chronicity, unspecified heart failure type ([facility]), Obesity, unspecified class, unspecified obesity type, unspecified whether serious comorbidity presentInject 0.25 mg under the skin every 7 (seven) days. 2 mL 5Active semaglutide, weight loss, 0.25 mg/0.5 mL pen injector Indications:Coronary arteriosclerosisInject 0.25 mg under the skin 1 (one) time per week. 2 mL Discontinued Active Problems ProblemNoted DateDiagnosed DateChronic stable gjbxbg8906/10/2025History of placement of stent in LAD coronary rdqurg7006/10/2025Sensorineural hearing loss (SNHL), rbeexxndg54/25/2025Wears hearing aid06/10/2025lepharitis of upper and lower eyelids of both eyes02/12/20259728Jtssigilxgsl71/30/2025Unstable angina pectoris due to coronary osuxmiqepnaqwdek86/09/2024 Assessment & Plan (01/23/2024 12:24 PM EDT): [...] he voiced understanding and agreement Chronic frontal ygrqtzhrg87/02/2024GERD (gastroesophageal reflux disease) rostate cancer wbskupndk68 Keratoconjunctivitis sicca of both eyes not specified as Sjogren'04/20/2023 05/19/2023Status post cataract wsxbpdgjgm67Superficial keratitis of right eyehronic systolic heart failure Overview (01/30/2023): Last Assessment & Plan: Assessment: Ischemic cardiomyopathy, LVEF 43% on MUGA scan 10/2018. Well compensated NYHA class I.. In the interim continue metoprolol succinate 50 mg and lisinopril 10 mg. He is also taking Lasix 20 mg every other day Follows cardiology, Zaire Catalan APRN-MAXIMILIAN , last OV 11/22/2022. Compliant on medications. Appears euvolemic, denies new or worsening cardiac symptoms. Ejection Fraction: No results found Assessment & Plan (01/23/2024 12:28 PM EDT): [facility] II-III currently euvolemic without exacerbation- he admits to not drinking enough fluid on a daily basis Continue GDMT- ASA, crestor, farxiga, aldactone and toprol Diuretic therapy- dc'd r/t hypotension/syncope Monitor daily weights, I&O, fluid restriction 1.5-2L/day, renal function and electrolytes- Heart rddbqio6212/29/2022 Overview (01/23/2024): Last Assessment & Plan: Assessment: Ischemic cardiomyopathy, LVEF 43% on MUGA scan 10/2018. Well compensated NYHA class I.. In the interim continue metoprolol succinate 50 mg and lisinopril 10 mg. He is also taking Lasix 20 mg every other day Follows cardiology, JONAS Nowak , last OV 11/22/2022. Compliant on medications. Appears euvolemic, denies new or worsening cardiac symptoms. Essential (primary) bdkpwzrjwguk62/09/202307/ Overview (01/30/2023): Last Assessment & Plan: Assessment: Stable on medication BP today 115/75 To take medication morning of surgery Assessment & Plan (01/23/2024 12:24 PM EDT): Hypertension is unchanged, boarderline labile with noted orthostatic changes Continue current medications. Lumbosacral kurvbxnr66/21/2023Acute Q wave myocardial sjofupcqxt38/29/2022cute renal /29/8674Jawrkl50/29/2022oronary jqhvlkheglxdryqh05/29/2022 Assessment & Plan (01/23/2024 12:26 PM EDT): Continue GDMT- ASA, toprol, crestor D/W Dr Sen regarding possible cardiac cath Cxcuokhfgcepnw85/29/4550Qrtofgf01/29/2022Edema of lower npnqukwtp63/29/2022 Elevated liver vfpytvt9106/14/2022Eruption due to drug06/14/2022Fracture, ankle 06/14/2022Generalized ischemic myocardial oxzhbdtysef14/29/2022Kidney stones 2OSA (obstructive sleep apnea)06/14/2022 Overview (06/14/2022): CPAP Nxjrcaguocowus14/29/2022Lumbar transverse process mdgvavqz43/24/2015 Gmdmakrffhjryeszuprf46/02/2014 Encounters DateTypeDepartmentCare ApteUszhturwmny25/01/2025[facility] Cardiovascular [address] [place] [address] Kamari Sen MD Mixed hyperlipidemia; Heart failure with improved ejection fraction (HFimpEF) (CMS/HCC); Coronary artery disease involving modoc coronary artery of modoc heart without angina /26/2025 1:00 PM ESTOffice Visit [facility] [address] [place] [address] Neida Booth CNP Coronary arteriosclerosis (Primary Dx); Chronic systolic heart failure (CMS/HCC); Overweight (BMI 25.0-29.9); Heart failure with improved ejection fraction (HFimpEF) (CMS/HCC); History of myocardial infarction; Status post insertion of drug eluting coronary artery stent; Mixed hyperlipidemia; Essential (primary) tsdaitkctekf55/27/2025Orders Only [facility] [address] [place] [address] Rhianna Patel MA Well adult exam (Primary Dx)04/16/2025[facility] [address] [place] [address] Kamari Sen MD Coronary artery disease, unspecified vessel or lesion type, unspecified whether angina present, unspecified whether modoc or transplanted heart; Heart failure with improved ejection fraction (HFimpEF) ([facility]); Coronary artery disease involving modoc coronary artery of modoc heart without angina pectoris; Mixed hyperlipidemiafrom Last 3 Months Immunizations ImmunizationAdministration DatesNext DueInfluenza, injectable, quadrivalent 07/21/2016Influenza, injectable, quadrivalent, preservative free05/31/2022, 05/24/2018Moderna SARS-CoV-2 Crwotbderqg49/15/2022Pneumococcal Conjugate PCV 20 06/21/2022Tdap08/01/2016Unspecified Sars-Cov-2 Luthohcpihg70/26/2021,11/12/2020, 10/19/2020Zoster, Rnzfovwglqo52/06/2022 Family History Medical HistoryRelationNameCommentsDiabetesFatherHeart attackFatherLeukemia MotherRelationNameStatusCommentsFatherDeceasedMotherDeceased Social History Tobacco UseTypesPacks/DayYears UsedDateSmoking Tobacco: NeverSmokeless Tobacco: Never Tobacco Cessation:Counseling Given: Not Answered Alcohol UseStandard Drinks/WeekCommentsYes0 (1 standard drink = 0.6 oz pure alcohol)moderateUT Safety & EnvironmentAnswerDate RecordedFear of Current or Ex-PartnerNot on file09/07/2023Emotionally AbusedNot on file09/07/2023hysically AbusedNot on file09/07/2023Sexually AbusedNot on file09/07/2023hysically or Sexually AbusedNot on file09/07/2023Sex and Gender InformationValueDate Recorded Sex Assigned at AgwisHjkj95/24/2025 3:51 PM ESTLegal XogYynq6501/12/2022 11:33 PM EDTGender SoxcjazqLinq13/24/2025 3:51 PM ESTSexual OrientationHeterosexual or Moqjmrvz17/24/2025 3:51 PM EST Last Filed Vital Signs Vital SignReadingTime TakenCommentsBlood Mlabspam510/7606/11/2025 1:03 PM EST Jrltd066106/11/2025 1:03 PM ESTTemperature--Respiratory Fqwm2192 11:45 AM EDTOxygen Vbnyxltnrj770%06/11/2025 1:03 PM ESTInhaled Oxygen Concentration-- Aajgei99.7 kg (200 lb)06/11/2025 1:03 PM YBDXxyqyk533.8 cm (5' 10 )06/11/2025 1:03 PM ESTBody Mass Index28.7108/11/2024 1:03 PM EST Plan of Treatment DateTypeDepartmentCare Team (Latest Contact Info)Ujpjglumgsv34/06/2026 9:00 AM ESTTelemedicine [facility] [address] [place] [address] [place] [address] Health MaintenanceDue DateLast DoneCommentsCT Dmzxhwigxach1961FIT-DNA 1960FIT1960FOBT1960 6708Qzjadnbkoprlh1961Depression Screening 1973COVID-19 Vaccine ( season), 05/11/2021, 05/11/2021, Additional history existsInfluenza Vaccine (#1)512/03/2024, 06/24/2024, 05/31/2022, Additional history existsAdult Tonkkos0308/01/2026 08/01/20165141Zxwstfssvja62/17/10294003/02/2017Colorectal Cancer Qwpqnwkvg48/17/2027 Pneumococcal Vaccine: Pediatrics (0 to 5 Years) and At-Risk Patients (6 to 64 Years)Mmlqnpwrc08/06/2022Zoster WeihxxfzDsjkcucnc06/06/2023, 06/21/2022HIB VaccinesAged OutNo longer eligible based on [...] on patient's age to complete this topic Procedures Procedure NamePriorityDate/TimeAssociated DiagnosisCommentsECG 12 LEAD UNIT HWNRTORIVJgdumix02/26/2025 1:25 PM EST Coronary arteriosclerosis from Last 3 Months Results * ECG 12 lead unit performed (06/11/2025 1:25 PM EST)Specimen (Source)Anatomical Location / LateralityCollection Method / VolumeCollection TimeReceived Time Narrative Authorizing ProviderResult TypeResult StatusUpstate University Hospitalayush Leobardo [facility] ORDER[facility]LES Final Result from Last 3 Months Insurance Care Teams Team MemberRelationshipSpecialtyStart DateEnd Date Maria D Wiggins MD [address] [facility] P[facility] - Rznqlpb18/29/22
--- OUTSIDE RECORDS SUMMARY | 2025-07-16 13:55 | XMS_ITS | Clinical Summary ---
Author Organization [facility] Address [address], [address] [place] [address] Care Team Providers Care Waffle Machine Operator Name Role Phone Maria D Wiggins Primary Care Provider [phone] Allergies No known active allergies Medications No known medications Active Problems No known active problems Social History Tobacco UseTypesPacks/DayYears UsedDateSmoking Tobacco: Never AssessedSmokeless Tobacco: NeverSex and Gender InformationValueDate RecordedSex Assigned at Not on fileLegal RlgZljb0208/03/2017 3:31 PM ESTGender IdentityNot on fileSexual OrientationNot on file Last Filed Vital Signs Vital SignReadingTime TakenCommentsBlood Pressure--Pulse--Nocxafwjobi87.7 ??C (98.1 ??F)02/22/2019 11:33 AM EDTRespiratory Rate--Oxygen Saturation--Inhaled Oxygen Concentration--Stnshd66.2 kg (168 lb)02/22/2019 11:33 AM VGRCdriyn965.8 cm (5' 10 )02/22/2019 11:33 AM EDTBody Mass Index24.11002/22/2019 11:33 AM EDT Plan of Treatment Not on file Insurance Care Teams Team MemberRelationshipSpecialtyStart DateEnd Date Maria D Wiggins PA [address] [place] [address] [facility]09/26/17
--- OUTSIDE RECORDS SUMMARY | 2025-07-16 13:55 | XMS_ITS | Clinical Summary ---
Author Organization [facility] Address [address] [place] [address] Care Team Providers Care Staff Radiologist Name Role Phone Maria D Wiggins PA-C Primary Care Provider Allergies Active AllergyReactionsCriticalityNoted DateCommentsAtorvastatinUnknown 06/14/2022 Other Reaction(s): Not available Medications MedicationSigDispense QuantityRefillsLast FilledStart DateEnd DateStatus gemfibrozil (LOPID) 600 mg tablet Take 600 mg by mouth.03/01/2017Active lisinopril (ZESTRIL, PRINIVIL) 10 mg tablet Take 10 mg by mouth.03/01/2017Active rosuvastatin (CRESTOR) 40 mg tablet Take 40 mg by mouth once daily.Active furosemide (LASIX ORAL) Take 20 mg by mouth.03/01/2017Active metoprolol succinate ER (TOPROL XL) 50 mg 24 hr tablet q 24 HR.03/01/2017Active omeprazole (PRILOSEC) 20 mg capsule omeprazole 20 mg capsule,delayed release TAKE 2 CAPSULES BY MOUTH EVERY DAYActive aspirin, enteric coated (ASPIRIN, ENTERIC COATED) 81 mg EC tablet Take 81 mg by mouth once daily.03/01/2017Active spironolactone (ALDACTONE) 12.5 mg tab 01/30/2023ctive neomycin/polymyxin b/dexametha(MAXITROL 3.5 MG/G-10,000 UNIT/G-0.1 % EYE OINTMENT) Apply to lids/lashes Both eyes at bedtime until gone 3.5 g 10/25/2023ctive semaglutide, weight loss, (WEGOVY) 0.25 mg/0.5 mL pen injector Inject 0.25 mg subcutaneously one time a week.5Active Active Problems ProblemNoted DateDiagnosed DateLumbar foraminal gtvpangr48/24/2025 Keratoconjunctivitis sicca of both eyes not specified as Sjogren'04/20/2023 Superficial keratitis of right eye04/12/2023Status post cataract extraction 04/12/2023Heart zgddhny2912/29/2022 Assessment & Plan (03/01/2023 1:44 PM EDT): Assessment: Ischemic cardiomyopathy, LVEF 43% on MUGA scan 10/2018. Well compensated NYHA class I.. In the interim continue metoprolol succinate 50 mg and lisinopril 10 mg. He is also taking Lasix 20 mg every other day ?? Follows cardiology, JONAS Nowak , last OV 11/22/2022. Compliant on medications. Appears euvolemic, denies new or worsening cardiac symptoms. ?? Assessment & Plan (12/29/2022 1:48 PM EDT): Assessment: Ischemic cardiomyopathy, LVEF 43% on MUGA scan 10/2018. Well compensated NYHA class I.. In the interim continue metoprolol succinate 50 mg and lisinopril 10 mg. He is also taking Lasix 20 mg every other day Follows cardiology, JONAS Nowak , last OV 11/22/2022. Compliant on medications. Appears euvolemic, denies new or worsening cardiac symptoms. Ejection Fraction: No results found Essential (primary) cununvaypvsy14/09/2023 Assessment & Plan (12/29/2022 1:48 PM EDT): Assessment: Stable on medication BP today 115/75 To take medication morning of surgery Lumbosacral drnavgrm81/21/2023eneralized ischemic myocardial dysfunction 06/14/2022 Assessment & Plan (03/01/2023 1:45 PM EDT): Assessment: S/P stent in 2014, on ASA Assessment & Plan (12/29/2022 1:49 PM EDT): Assessment: history of MT s/p PTCA in 2014 on ASA follows with Cardiology stable Lumbar transverse process djsxozrd46/24/1978Xavlmoacdkpwnq89/02/2014 Assessment & Plan (12/29/2022 1:48 PM EDT): Assessment: stable on medication DiverticulosisFracture, ankleOSA (obstructive sleep apnea) Overview (11/07/2014): CPAP Assessment & Plan (03/01/2023 1:45 PM EDT): Assessment: Compliant with CPAP Assessment & Plan (12/29/2022 1:50 PM EDT): Assessment: compliant with CPAP Elevated liver enzymesHypertriglyceridemia Assessment & Plan (03/01/2023 1:45 PM EDT): Assessment: Controlled with statin. Monitored per PCP. OsteoarthritisAsthmaKidney stones Encounters DateTypeDepartmentCare OrcpMbwuertvpmv96/24/2025 10:30 AM EST - 07/09/2025 11:00 AM ESTSurgery Pain Management [address] [place] [address] Barber Bell DO INJECTION(S) STEROID TRANSFORAMINAL EPIDURAL LUMBAR W/IMAGE GUIDANCE FLUORO OR CT07/09/2025 9:32 AM EST - 07/09/2025 11:40 AM ESTHospital Encounter Pain Management [address] [facility] [place] [address] Barber Bell DO Cervical spondylosis without myelopathy [M47.812] Discharge Disposition: Home07/09/20253463Fdstne06/16/2025 Patient Msg Pain Management [address] [facility] [place] [address] Brisa Dos Santos, GREG Pre procedure instructions Dr. Bell07/01/2025[facility] Only [facility] [address] [facility] [place] [address] Mendis, Barber G, DO Cervical spondylosis without myelopathy (Primary Dx)06/30/2025 4:20 PM [facility] Sp[facility] Medicine [address] [place], [place] [id number] Barber Bell, DO Lumbar foraminal stenosis (Primary Dx)06/28/2025Travelfrom Last 3 Months Immunizations ImmunizationAdministration DatesNext Dueinfluenza (IIV4) vaccine, age 6 mo - 64 yr, quadrivalent, PF (AFLURIA, FLUARIX, FLULAVAL, FLUZONE)05/31/2022,05/24/2018 influenza (IIV4) vaccine, quadrivalent (AFLURIA, FLULAVAL, FLUZONE)07/21/2016 pneumococcal conjugate (PCV20) vaccine, 20 valent (PREVNAR 20)06/21/2022tetanus diphtheria pertussis (Tdap) vaccine, age 7+ yr (ADACEL, BOOSTRIX)08/01/2016 zoster (RZV) vaccine, recombinant (SHINGRIX)06/21/2022 Family History Medical HistoryRelationCommentsArthritisFatherCABG [Other]Fatherage 55Diabetes Fatherhigh blood pressure [Other]Fathermyocardial infarction [Other]FatherAge 32 CataractMaternal GrandmotherCancerMothermyocardial infarction [Other]Paternal AuntAgeAnesthesia ProblemsNo Family HistoryRelationStatusCommentsFatherMaternal GrandmotherMotherPaternal Aunt Social History Tobacco UseTypesPacks/DayYears UsedDateSmoking Tobacco: KjhznpLsynkofdve3349204 - 2001Smokeless Tobacco: Never Tobacco Cessation:Counseling Given: Not Answered Alcohol UseStandard Drinks/WeekCommentsNot Currently0 (1 standard drink = 0.6 oz pure alcohol)PHQ-2AnswerDate RecordedPHQ-2 ujtjg7405Area Deprivation IndexAnswerDate RecordedNational Score (1-100), lower number is lower risk65 12/15/2022State Score (1-10), lower number is lower vycv7563Data from: https://www.neighborhoodatlas.medicine.[facility].edu/. Last address used for calculation[address] Serna06/01/2022Sex and Gender InformationValueDate Recorded Sex Assigned at BirthNot on fileLegal IftZlxj7202/14/2014 9:49 AM EDTGender IdentityNot on fileSexual OrientationNot on fileOccupationIndustryJob Start Date Job End DateCar DealerNot on fileNot on fileNot on file Last Filed Vital Signs Vital SignReadingTime TakenCommentsBlood Papjuarp183/8107/09/2025 11:30 AM EST Wzcdp918207/09/2025 11:30 AM ETLXpczgeaxhgh15.8 ??C (96.4 ??F)07/09/2025 9:43 AM ESTRespiratory Popa890709/09/2024 9:43 AM ESTOxygen Ddwnusjuuo18%07/09/2025 11:30 AM ESTInhaled Oxygen Concentration--Qrmupc59.7 kg (200 lb)07/09/2025 9:41 AM EST Slqwlr917.8 cm (5' 10 )03/01/2023 2:05 PM EDTBody Mass Index28.7003/01/2023 2:05 PM EDT Plan of Treatment DateTypeDepartmentCare Team (Latest Contact Info)Gfwxglctnmv22/02/2026 4:20 [facility] [address] [place], [place] [id number] Barber Bell, DO [address] [place] [address] Ordering Provider Via Virtual Visit: 2-4 weeksHealth MaintenanceDue DateLast DoneCommentsAnnual PCP Team Chronic Disease Visit1979Anxiety Screening 1979Depression Lproyfyjb84/07/1979HIV Txdpajftm46/07/1979Hepatitis C Hikrpanor39/07/1979CT Rjixcunaujwy52/07/2006Cologuard (FIT-DNA)2006Fecal Occult Blood2006Prostate Cancer Screening Vfmddpcumk82/07/2006 Pczvupnmfoqop18/07/2006RSV Vaccine (1 - Risk 50-74 years 1-dose series) 03/23/20119780Szaudadmhye51Colorectal Cancer Csmcbrcmk60/17/2018 Covid-19 Vaccine ( season)/, 05/11/2021, 11/12/2020, Additional history existsInfluenza Vaccine (#1)/03/2024, 05/31/2022, 05/24/2018, Additional history existsDiabetes Nsgjqubyg76/04/2026 3DTaP,Tdap,Td Vaccine (2 - Td or Tdap)/Lipid Qptyzwkcf84/neumococcal Vaccine: 50+Hqpvgpcjn57/06/2022 Shingrix ZiadfwrHxjixjyox53/06/2023, 06/21/2022 Medical Devices ImplantedTypeAreaManufacturerDevice IdentifierShelf Expiration DateModel / Serial / LotClareon Aspheric Uv Absorbing Iol +21d Implanted:Qty: 1 on 01/11/2023 by Negra English V, MD at [facility] Intraocular LensLeft: EyeALCON [id number]/02/[id number] / [id number] / Description:-1.41Clareon Aspheric Uv Absorbing Iol +20.5d Implanted:Qty: 1 on 03/08/2023 by Negra English V, MD at [facility] Intraocular LensRight: EyeALCON [id number]/22/[id number].205 / [id number] / Description:-0.20 Insurance Care Teams Team MemberRelationshipSpecialtyStart DateEnd Date Feliciano, Maria D Gabe, PA-C PCP - Generalmi Medicine02/14/14
--- NOTE | 2025-07-16 14:00 | CA_ITS ---
Patient Name: DARIUS DEGROOT MR#: [id number] : 1960 Exam Date: 07/16/2025 Ordering Doctor: NORA OLIVA CNP ECHOCARDIOGRAM REPORT PROCEDURE: CA ECHO DOPPLER COMPLETE INDICATIONS: Chronic systolic heart failure COMPARISON: None. DESCRIPTION: COMPLETE ECHOCARDIOGRAM Real-time transthoracic echocardiography with 2D, M-mode, spectral and color flow Doppler performed. QUALITY: Technical quality was good. LEFT VENTRICLE: Normal chamber size. Mild concentric left ventricular hypertrophy. Global left ventricular systolic function is lower limits of normal. Visual estimation of left ventricular ejection fraction is 50-55%. Global longitudinal myocardial strain is abnormal at -11.2%. LV EF: Low normal left ventricular ejection fraction, (50-55%). DIASTOLIC: ATRIAL SEPTUM: LEFT ATRIUM: Normal chamber size. RIGHT ATRIUM: Normal chamber size. RIGHT VENTRICLE: Normal chamber size. Normal right ventricular systolic function. TRICUSPID VALVE: Normal mobility and thickness. No stenosis with trivial regurgitation. No evidence of pulmonary hypertension. RVSP 26 mmHg. MITRAL VALVE: Mildly thickened with normal mobility. No evidence of mitral valve stenosis. There is no mitral annular calcification. Trivial mitral regurgitation. AORTIC VALVE: Normal trileaflet appearance. No visible sclerosis. Normal leaflet mobility. No evidence of aortic valve stenosis. Trivial aortic regurgitation. AORTIC ROOT: Normal diameter and appearance. The aortic root measures 3.4 cm. The ascending aorta is mildly dilated measuring 3.7 cm. PULMONIC VALVE: Normal thickness and mobility. No stenosis. No regurgitation. PERICARDIUM: No evidence of pericardial effusion. IVC: Collapses with inspirations. Normal in size measuring 1.7 cm. PLEURA: CONCLUSION: 1. Mild concentric left ventricular hypertrophy with normal systolic function. Estimated LVEF is 50-55%. 2. Normal right ventricular size and systolic function. 3. No significant valvular dysfunction. 4. Normal right-sided pressures. 5. Mildly dilated ascending aorta measuring 3.7 cm. Adult Echocardiography Procedure Report Left Ventricle LVEDD (3.7 - 5.6 cm): 5.00 cm LVESD (2.2 - 4.0 cm): 3.51 cm LVIVS thickness (0.6 - 1.2 cm): 1.15 cm LVPW thickness (0.5 - 1.0 cm): 1.22 cm e': 0.08 m/s E - e': 6.20 LVOT Max Gradient: 3.12 mm[Hg] LVOT Area (cm2): 0.88 m/s Peak Velocity (LVOT): 0.88 m/s Mean Velocity (LVOT): 0.65 m/s LVOT Diameter 2.19 cm Left Ventricular Ejection Fraction: 50-55 % Left Atrium LA Volume Index (2D A2C): 19.53 ml/m2 Left Atrium Systolic Dimension: 3.70 cm Mitral Valve MV E to A Ratio: 0.60 Mitral Valve A-Wave Peak Velocity: 0.78 m/s Mitral Valve E-Wave Peak Velocity: 0.47 m/s Right Ventricle RV Internal Diastolic Dimension: 2.97 cm Aorta AO Root Diam: 3.35 cm Ascending Ao Diam: 3.71 cm Aortic Valve AoV Area (Peak Cooper): 3.07 cm2, 3.07 cm2 AoV Area (VTI): 3.37 cm2, 3.37 cm2 Peak Velocity(Antegrade Flow): 1.09 m/s Peak Gradient(Antegrade Flow): 4.74 mm[Hg] Mean Velocity(Antegrade Flow): 0.73 m/s Mean Gradient(Antegrade Flow): 2.50 mm[Hg] Velocity Time Integral: 18.63 cm Tricuspid Valve Peak Velocity (Regurgitant Flow): 2.00 m/s, 2.40 m/s Pulmonic Valve Mean Gradient: 1.90 mm[Hg], 1.36 mm[Hg], 1.46 mm[Hg] Mean Velocity: 0.65 m/s, 0.52 m/s, 0.57 m/s Peak Velocity: 0.85 m/s Peak Gradient: 3.56 mm[Hg], 2.81 mm[Hg], 2.35 mm[Hg] Right Atrium Right Atrium Systolic Pressure: 27.10 ml, 27.10 ml Dictated by: Kamari Sen M.D. on 07/16/2025 at 17:02 Approved by: Kamari Sen M.D. on 07/16/2025 at 17:07
--- OUTSIDE RECORDS SUMMARY | 2025-07-16 14:08 | XMS_ITS | CCD ---
Author Organization [facility] CliniSynv Care Team Providers Care Horticultural Farmer Name Role Phone PHYSICIAN, DEFAULT Admitting Unavailable PHYSICIAN, DEFAULT Attending Unavailable PHYSICIAN, DEFAULT Admitting Unavailable PHYSICIAN, DEFAULT Attending Unavailable UNKNOWN, PROVIDER Admitting Unavailable UNKNOWN, PROVIDER Attending Unavailable MARIA D FLORES Referring Unavailable OAK RIDGEMARIA D Primary Care Unavailable PHYSICIAN, DEFAULT Admitting Unavailable PHYSICIAN, DEFAULT Attending Unavailable Maria D Petersen Primary Care Provider Maria D Petersen Primary Care Provider Maria D PETERSEN Primary Care Physician CAMILA Petersen Primary Care Provider [phone]( [phone] DO Barber Snow Jr Attending Provider Barber [...] Provider Maria D Concepcion Primary Care Provider [phone] CAMILA SEN Attending Unavailable KATALINA NG Attending [...] Primary Care Provider Maria D Concepcion Unavailable [phone] ARTURO DODGE Referring Unavailable ECHO, ARTURO Thompson Referring Unavailable ECHO, ARTURO Thompson Attending Unavailable ARTURO DODGE Referring Unavailable KARLA LOZANO Attending Unavailable Willy Kim Admitting Unavailable Willy Kim Attending Unavailable DO Anders Jesus Admitting Unavailable DO Anders Jesus Attending Unavailable Willy Kim Attending Unavailable Allergies Allergy ClassificationReported Allergen(s)Allergy TypeDate of OnsetReaction(s) Facility (8 sources)atorvastatin; Translations: [ATORVASTATIN]Drug Klkxxwz72-76-3059 Unknown[facility] (5 sources)atorvastatinDrug Pxfecrm67-28-5844ZCSQ [facility] Medications Current Medications MedicationDrug Class(es)DatesSig (Normalized)Sig (Original)aspirin 81 mg chewable tablet (20 sources)Platelet Aggregation Inhibitor, Nonsteroidal Anti-inflammatory Drug Start: 05-05-2023 End: 52-59-8017yimpkah 81 MG chewable tablet Chew 81 mg in the morning. 05/05/2023 05/04/2024 ActiveStart: 49-73-3576apxc 1 tablet by mouth once daily aspirin, enteric coated (ASPIRIN, ENTERIC COATED) 81 mg EC tablet Take 81 mg by mouth once daily. 03/01/2017 ActiveStart: 57-28-8393vdfz 81 mg by mouth once dailyaspirin 81 mg, Oral, Daily, Refills(s) 0, Blood Thinner Start Date: 03/01/17 Status: Ordered Repeat number: 1Comment on above:Take 81 mg by mouth once daily.atorvastatin 80 mg oral tablet (5 sources)HMG-CoA Reductase Inhibitoratorvastatin (Lipitor) 80 MG tablet Active azithromycin 250 mg oral tablet (5 sources)Macrolide AntimicrobialStart: 62-49-1833ctsfohpwctfh (Zithromax) 250 MG tablet Indications: Chronic frontal sinusitis Take 2 tabs PO x 1 day then 1 tab PO daily x 4 days 6 tablet 1 11/16/2023 Activebenoxinate hydrochloride 4 mg/ml / fluorescein sodium 3 mg/ml ophthalmic solution (2 sources)Diagnostic DyeStart: 06-01-2023 End: 61-17-8127ppevuldbrxz-benoxinate 0.3-0.4 % 1 Drop (FLURESS)Start: 12-15-2022 End: 33-80-2596aqmxndzufjs-benoxinate 0.25-0.4 % 1 Drop (FLURESS)benzonatate 100 mg oral capsule (1 source)Non-narcotic AntitussiveStart: 03-06-2025 End: 15-09-3788gczy 1 capsule by mouth three times dailyTessalon 100 mg Cap 100 mg = 1 cap(s), Oral, TID, X 7 day(s), # 21 cap(s), Refills(s) 0, Pharmacy: [facility][id number], 178, cm, 03/06/25 9:36:00 EDT, Height/Length Dosing, 90, kg, 03/06/25 9:36:00 EDT, Weight Dosing Start Date: 03/06/25 Stop Date: 03/13/25 Status: Ordered Quantity: 21.0 Unit: cap(s) Repeat number: 1 Indications: Fever, unspecified; Cough, unspecified;ciprofloxacin 3 mg/ml / dexamethasone 1 mg/ml otic suspension (1 source)Corticosteroid, Quinolone AntimicrobialStart: 12-13-2024 End: 41-73-6475Qqwzagbi 0.3%-0.1% Susp-Otic 4 drop(s), Otic, BID for 7 day(s), 7.5 mL, Refill(s) 0, [facility] #[id number], 178, cm, 12/13/24 9:37:00 EDT, Height/Length Dosing, 92.2, kg, 12/13/24 9:37:00 EDT, Weight Dosing Start Date: 12/13/24 Stop Date: 12/20/24 Status: Ordered Quantity: 7.5 Unit: mL Repeat number: 1 Indications: Unspecified otitis externa, unspecified ear;dapagliflozin 10 mg oral tablet (8 sources)Sodium-Glucose Cotransporter 2 InhibitorStart: 72-47-7179Lsfhgjp 10 mg oral tablet 10 mg = 1 tab(s), Refills(s) 0 Start Date: 06/03/24 Status: Ordered Repeat number: 1Start: 03-16-2023 End: 48-39-2793btkg 10 mg by mouth in the morningdapagliflozin (Farxiga) 10 MG Take 10 mg by mouth in the morning. 03/16/2023 Iwjpdu99 hr desvenlafaxine succinate 50 mg extended release oral tablet (14 sources)Serotonin and Norepinephrine Reuptake Inhibitortake 1 tablet by mouth every twenty-four hours in the morningdesvenlafaxine (Pristiq) 50 MG 24 hr tablet Take 1 tablet by mouth in the morning. Active End: 78-25-3806iqrn 1 tablet by mouth once daily, then [...] ointment (6 sources)Aminoglycoside Antibacterial, Polymyxin-class Antibacterial, CorticosteroidStart: 10-08-5398xyphchbv/polymyxin b/dexametha(MAXITROL 3.5 MG/G- 10,000 UNIT/G-0.1 % EYE OINTMENT) Apply to lids/lashes Both eyes at bedtime until gone 3.5 g 10/25/2023 ActiveComment on above:Apply to lids/lashes Both eyes at bedtime until gonediazePAM 5 mg oral tablet (1 source)BenzodiazepineStart: 07-25-2022 End: 53-93-6817lzzfkKJZ (VALIUM) 5 mg tablet Indications: Chronic right-sided [...] oral tablet (11 sources)Dietary Cholesterol Absorption InhibitorStart: 61-05-7112bpra 1 mg by mouth once dailyezetimibe 10 mg Tab mg tab(s), Oral, Daily, Refills(s) 0 Start Date: 12/13/24 Status: Ordered Repeatnumber: 1 End: 01-86-4557zqqd 1 tablet by mouth once dailyezetimibe (ZETIA) 10 mg tablet Take 10 mg by mouth once daily. 0 12/29/2022 Discontinued (Course oftherapy completed)Comment on above:Take 10 mg by mouth once daily.Furosemide (20 sources)Loop DiureticStart: 50-45-9129AZSTPRSBFG 20 MG TABS FUROSEMIDE 20 MG TABS Start Date: 03/13/23 Status: OrderedStart: 53-56-3261ucrdfdqyrw (LASIX ORAL) Take 20 mg by mouth. 03/01/2017 ActiveComment on above:Take 20 mg by mouth.gemfibrozil 600 mg oral tablet (20 sources)Peroxisome Proliferator Receptor alpha AgonistStart: 78-51-7611ypvj 600 mg by mouth twice dailygemfibrozil 600 mg, Oral, BID, Refills(s) 0, Blood glucose Start Date: 03/01/17 Status: Ordered Repeat number: 1Comment on above: Take 600 mg by mouth.lisinopril 10 mg oral tablet (20 sources)Angiotensin Converting Enzyme InhibitorStart: 46-30-6831aayt 10 mg by mouth once dailylisinopril 10 mg, Oral, Daily, Refills(s) 0, High blood pressure Start Date: 03/01/17 Status: Ordered Repeat number: 1Comment on above: Take 10 mg by mouth.24 hr metoprolol succinate 25 mg extended release oral tablet (20 sources)beta-Adrenergic BlockerStart: 01-20-2992gkdh 1 tablet by mouth once dailymetoprolol succinate XL (Toprol-XL) 25 MG 24 hr tablet Take 25 mg by mouth Daily 06/11/2023 ActiveStart: 62-79-3240ojrcinvzjc succinate ER (TOPROL XL) 50 mg 24 hr tablet q 24 HR. 03/01/2017 ActiveStart: 16-67-2046kvpc 1 tablet by mouth once dailyMetoprolol succinate 50 mg ER Tablet 50 mg, Oral, Daily, Refills(s) 0, High blood pressure Start Date: 03/01/17 Status: Ordered Repeat number: 1Comment on above:q 24 HR.omeprazole 20 mg delayed release oral capsule (20 sources)Proton Pump InhibitorStart: 66-79-4031vjuhsrhalf (PriLOSEC) [address] capsule Take 40 mg by mouth 05/05/2023 ActiveStart: 19-29-2173Cyspysri 20 mg, Oral, BID, Refills(s) 0, Control of stomach acid Start Date: 03/01/17 Status: Ordered Repeat number: 1Start: 03-01-2017 End: 89-31-2107bguj 20 mg by mouth twice dailyPrilosec 20 mg, Oral, BID, Refills(s) 0, Control of stomach acid Start Date: 03/01/17 Status: OrderedComment on above:Take 20 mg by mouth twice daily.omeprazole 20 mg capsule,delayed release TAKE 2 CAPSULES BY MOUTH EVERY DAYphenylephrine hydrochloride 25 mg/ml ophthalmic solution (2 sources)alpha-1 Adrenergic AgonistStart: 06-01-2023 End: 05-40-3984YCHUVGckwerwh 2.5 % 1 Drop (AK-DILATE, CODEY-SYNEPHRINE)Start: 12-15-2022 End: 42-98-7236VOUHQYknbuzzw 2.5 % 1 Drop (AK-DILATE, CODEY-SYNEPHRINE) rosuvastatin calcium 40 mg oral tablet (20 sources)HMG-CoA Reductase InhibitorStart: 22-77-2178uovt 1 tablet by mouth at bedtimerosuvastatin (Crestor) 40 MG tablet Take 40 mg by mouth at bedtime 05/05/2023 ActiveStart: 34-79-1517entj 20 mg by mouth once dailyrosuvastatin 20 [...] 25 mg oral tablet (20 sources)Aldosterone AntagonistStart: 21-78-1847uqnfiodmvsljkn 25 mg Tab Refills(s) 0 Start Date: 03/13/23 Status: Ordered Repeat number: 1Start: 03-13-2023 End: 20-49-2233pxcnpzslgufivw (Aldactone) 25 MG tablet Take 12.5 mg by mouth in the morning. 03/13/2023 ActiveStart: 65-97-3831fyucdzllmpfiit (ALDACTONE) 12.5 mg tab 01/30/2023 ActiveStart: 95-74-3964kkbxpmgopsbysq (ALDACTONE) 12.5 mg tab tropicamide 10 mg/ml ophthalmic solution (2 sources)AnticholinergicStart: 06-01-2023 End: 30-61-5515kpboacowadg 1 % 1 Drop (MYDRIACYL)Start: 12-15-2022 End: 22-77-6608akzzeiyiqmn 1 % 1 Drop (MYDRIACYL) Completed/Discontinued Medications MedicationDrug Class(es)DatesSig (Normalized)Sig (Original)acetaminophen 325 mg / HYDROcodone bitartrate 5 mg oral tablet (9 sources)Opioid Agonist End: 46-64-0305dbnk 1 tablet by mouth every six hours [...] Central Nervous System Stimulant, MethylxanthineStart: 03-01-2017 End: 26-77-4789nzgrknl-caffeine 1,000-150 mg pwpk Take 81 mg by mouth. 0 03/01/2017 12/29/2022 Discontinued (Course of therapy completed)Comment on above:Take 81 mg by mouth.betamethasone 3 mg/ml / betamethasone acetate 3 mg/ml injectable suspension (8 sources)CorticosteroidStart: 11-28-2024 End: 75-81-3213dgjnitjxakcyv acetate-betamethasone sodium phosphate (Celestone) injection 6 mgStart: 11-28-2024 End: mg, Intra-articular, Once PRN Procedure, Starting on Ria 11/28/24 at 1600, For 1 dosecyclobenzaprine hydrochloride 10 mg oral tablet (9 sources)Muscle Relaxant End: 99-60-3995cwxn 1 tablet by mouth every eight hours as neededcyclobenzaprine (FLEXERIL) 10 mg tablet Take 10 mg by mouth three times daily as needed. 0 12/29/2022 Discontinued (Course of therapy completed)Comment on above:Take 10 mg by mouth three times daily as needed.fluticasone propionate 0.05 mg/actuat metered dose nasal spray (11 sources)Corticosteroidfluticasone (FLONASE) 50 mcg/actuation nasal spray Use 1 [place] in each nostril as needed. 0 ActiveComment on above:Use 1 [place] in each nostril as needed.gabapentin 300 mg oral capsule (8 sources)Anti-epileptic AgentStart: 05-18-2022 End: 75-46-3814jovxfkifjo (NEURONTIN) 300 mg capsule Indications: Acute right- [...] solution (4 sources)Nonsteroidal Anti-inflammatory Drug, Cyclooxygenase InhibitorStart: 57-62-2446lsUSQlpuh (ACULAR) 0.5 % ophthalmic solution USE DIRECTED BY PHYSICIAN, IN OPERATIVE EYE, BEGINNING ONE DAY AFTER SURGERY 5 mL 0 03/07/2023 ActiveStart: 87-24-0018guAEWxzig (ACULAR) 0.5 % ophthalmic solution 1 drop in the operative eye 4 times daily for 10 days after surgery, then taper as directed. 5 mL 0 01/13/2023 ActiveStart: 01-10-2023 End: 89-91-6498hlXFAkvrv (ACULAR) 0.5 % ophthalmic solution USE DIRECTED BY PHYSICIAN, IN OPERATIVE EYE, BEGINNING ONE DAY AFTER SURGERY 5 mL 0 01/10/2023 01/13/2023 DiscontinuedComment on above:1 drop in the operative eye 4 times daily for 10 days after surgery, then taper as directed.USE DIRECTED BY PHYSICIAN, IN OPERATIVE EYE, BEGINNING ONE DAY AFTER SURGERYmethylPREDNISolone (9 sources)CorticosteroidStart: 05-18-2022 End: 22-69-2615oyhsomNBUJHEXzpxgv (MEDROL DOSE-PACK) 4 mg Dose-Pack Indications: Acute right-sided low back pain with right-sided sciatica , Lumbosacral radiculitis As Instructed per package 21 tablet 0 05/18/2022 12/29/2022 Discontinued (Course of therapy completed)Start: 10-12-5327wdnzfjHNCHJVNkzwvn (MEDROL DOSE-PACK) 4 mg Dose-Pack Indications: Acute right-sided low back pain with right-sided sciatica , Lumbosacral radiculitis As Instructed per package 21 tablet 0 05/18/2022 ActiveComment on above:As Instructed per package prednisoLONE acetate 10 mg/ml ophthalmic suspension (4 sources)CorticosteroidStart: 61-52-5100jdpblzarEEXM acetate (PRED FORTE) 1 % ophthalmic suspension USE DIRECTED BY PHYSICIAN, IN OPERATIVE EYE, BEGINNING ONE DAY AFTER SURGERY 5 mL 0 03/07/2023 ActiveStart: 27-54-1135zsedmvenSIPW acetate (PRED FORTE) 1 % ophthalmic suspension 1 drop in the operative eye 4 times daily for 10 days after surgery, then taper as directed. 5 mL 0 01/13/2023 ActiveStart: 01-10-2023 End: 74-81-0964odxyexytDUXC acetate (PRED FORTE) 1 % ophthalmic suspension [...] encountering health services in other specified circumstances]Onset: 18-75-4013PrsmbvthFwxvqdg disorders (7 sources)Ywdqdtz45-92-1735ZefyujjRjniho (20 sources)Asthma; Translations: [Unspecified asthma, uncomplicated]11-07-2014 ChronicBlindness and vision defects (1 source)Bilateral myopia of eyes; Translations: [Myopia, bilateral]Episodic Calculus of urinary tract (20 sources)Kidney stone; Translations: [Calculus of kidney]94-27-2847Ylqgzbbg Cataract (7 sources)Bilateral senile combined form cataracts of eyes; Translations: [Combined forms of age-related cataract, bilateral]Onset: 70-98-1402Czwxcfw Congestive heart failure; nonhypertensive (20 sources)Heart failure; Translations: [Chronic systolic (congestive) heart failure]Onset: 21-36-8957IylfvfwQghhwjsf atherosclerosis and other heart disease (20 sources)Atherosclerotic heart disease of [place] coronary artery without angina pectoris; Translations: [Generalized ischemic myocardial dysfunction] Onset: 43-70-3873SwukndvPhdgzhbfb of lipid metabolism (20 sources)Hyperlipidemia; Translations: [Hyperlipidemia, unspecified]Onset: 310641-61-4276AfqvbpaTldsysxlpniiju and diverticulitis (20 sources)Diverticular disease; Translations: [Diverticulosis of intestine, part unspecified, without perforation or abscess without bleeding]11-07-2014 ChronicEsophageal disorders (6 sources)Gastroesophageal reflux jlnaagq16-78-8305VkdyrsbIutmdfrcv hypertension (20 sources)Essential hypertension; Translations: [Essential (primary) hypertension]Onset: 39-26-1198WvarngoSswbr of unknown origin (1 source)Fever; Translations: [Fever, unspecified]Onset: 06-34-6340Rujceveu Fracture of lower limb (20 sources)Fracture of ankle; Translations: [Other fracture of unspecified lower leg, initial encounter for closed fracture]19-30-8749TkjveqwkZfnpawzhnbur with complications and secondary hypertension (1 source)Hypertensive heart disease with heart failure; Translations: [HYPERTENSIVE HEART DISEASE WITH HEARTFAILURE]Onset: 99-92-8643Gjctjsb Inflammation; infection of eye (except that caused by tuberculosis or sexually transmitteddisease) (9 sources)Keratoconjunctivitis sicca; Translations: [Keratoconjunctivitis sicca, not specified as Sjogren's, bilateral]Onset: hronic Inflammation; infection of eye (except that caused by tuberculosis or sexually transmitteddisease) (10 sources)Superficial keratitis of right eye; Translations: [Unspecified superficial keratitis, right eye]Onset: 913143-71-8889Sjrexqqf Osteoarthritis (20 sources)Osteoarthritis; Translations: [Unspecified osteoarthritis, unspecified site]43-64-4823IzoyoepUsczm diseases of kidney and ureters (3 sources)Acquired renal cyst without neoplastic change; Translations: [Cyst of kidney, acquired]Onset: 39-17-6545HqwcumfkFmmee diseases of kidney and ureters (6 sources)Cyst of -76-9720ImybonhuZzmlq ear and sense organ disorders (1 source)Sensorineural hearing loss; Translations: [Sensorineural hearing loss, bilateral]Onset: 87-49-1986PginzkyMiuud ear and sense organ disorders (2 sources)Sensorineural hearing loss, fhfhqofoo77-97-0234NchcbxaYerrs ear and sense organ disorders (1 source)External hearing aid in situ; Translations: [Presence of external hearing-aid]Onset: 99-25-8346WkboejhiFhwai ear and sense organ disorders (2 sources)Does use hearing kqa03-86-4995MzedafqxSiqns eye disorders (1 source)H/O: L cataract extraction; Translations: [Cataract extraction status, left eye]45-50-9367FefmgeyqLcizt eye disorders (1 source)Meibomian gland dysfunction of bilateral eyes; Translations: [Meibomian gland dysfunction right eye, upper and lower eyelids]10-25-2023 EpisodicOther eye disorders (1 source)Pinguecula of left eye; Translations: [Pinguecula, left eye]10-25-2023 EpisodicOther eye disorders (1 source)Pterygium of right eye; Translations: [Unspecified pterygium of right eye]65-83-9123QjvxgyglLuwpt eye disorders (1 source)History of ehtyxcq-zpzoeecy-pnrvoq (YAG) laser capsulotomy of lens; Translations: [Cataract extraction status, left eye]42-26-1676OhudtwbaFqyql eye disorders (2 sources)Dry eyes; Translations: [Dry eye syndrome of bilateral lacrimal glands]Onset: 993137-75-0815IqzjeztfPwswn liver diseases (20 sources)Elevated liver enzymes level; Translations: [Abnormal levels of other serum enzymes]40-13-8440FxhmxlngQcauw lower respiratory disease (1 source)Cough; Translations: [Cough, unspecified]Onset: 80-53-8903Lracdjfe Other non-traumatic joint disorders (2 sources)Shoulder pain; [...] [Encounterfor screening for malignant neoplasm of prostate]Onset: 88-51-1829TjttpqrpKphyy upper respiratory infections (5 sources)Chronic frontal sinusitis; Translations: [Chronic frontal sinusitis] Onset: 032894-36-4599FgkqhzsDtvrq upper respiratory infections (1 source)Acute upper respiratory infection; Translations: [Acute upper respiratory infection, unspecified]Onset: 07-04-2496HhsnpaknEfikduxv codes; unclassified (20 sources)Obstructive sleep apnea syndrome; Translations: [Obstructive sleep apnea (adult) (pediatric)]Onset: 216168-46-0287HzixhjeEadkfbzvxije (1 source)DXOnset: 57-86-1878Swvauazdbvep (6 sources)Patient encounter -19-5639Aydbfqckyfue (2 sources)First encounter by nivydef46-97-7797 Past or Other Problems Problem ClassificationProblemDateDocumented DateEpisodic/ChronicCoronary atherosclerosis and other heart disease (2 sources)Presence of coronary angioplasty implant and graft; Translations: [Presence of coronary angioplastyimplant and graft]Onset: 77-33-8804Mtonpmnx Other fractures (20 sources)Fracture of transverse process of lumbar vertebra; Translations: [Unspecified fracture of unspecified lumbar vertebra, initial encounter for closed fracture]Onset: 997253-14-0101HvjafvwpRbfqlrurfpn; intervertebral disc disorders; other back problems (20 sources)Acute back pain with sciatica; Translations: [Lumbago with sciatica, right side]Onset: 33-05-7848VcmgcpnfCacihwd (2 sources)Syncope and collapse; Translations: [Syncope and collapse]Onset: 10-05-4994AhbrlorlVilgbgnvffjy (7 sources)Rhrrnirezkl78-33-8555 Results Test NameValueInterpretationReference RangeFacilityAmbulatory Visit Summaryon 16-47-4130Hnxqiwqrcn Visit SummaryAmbulatory Visit Summary DARIUS THACKER :1960 [...] PM EDT With: Anders Jesus DO Where: [facility] [place] [address] [place] [address]- You Need to Schedule the Following Appointments Follow Up with Anders Jesus DO, INÉS, PED When: Where: [address] [place] [address] Medications What How Much When Why Instructions New benzonatate (Tessalon 100 mg Cap) 1 Capsules By Mouth 3 times a day Cough Fever Duration: 7 Days Pickup at [facility][id number] Unchanged aspirin 81 Milligram By Mouth Every [...] physician if questions or concerns Pharmacy Information [facility] #[id number]: [address] [place], [place] [phone] Allergies No Known Allergies Problems Ongoing - [...] ??? Muscle aches. ??? (more content not included)...[facility] Office/Clinic Noteon 16-57-6101[facility] Medicine Office/Clinic NoteFabrockton hospital Medicine Office/Clinic Note Chief Complaint cough, [...] created with voice recognition software. Occasional wrong-word or???kcxjx-b-qbji??? substitutions may have occurred due to the [...] postnasal drip. States he did use some znbo-aik-dfdkmom Nasacort has also been using djak-btn-bemhqlx Delsym with some improvement of symptoms. He [...] of high blood pressure otherwise discussed Delsym iepj-uqy-dzpbigt is okay to continue as well as [...] over next 5- (more content not included)...Normal [facility] HospitalComment on above:Result Comment: Electronically Signed By: Julio JENSEN, Willy Hurtado\.br\Date and Time Signed: 03/06/2510:12 EDTXR Chest 2 Viewson 83-94-9718OK Chest 2 ViewsExam Date/Time: 03/06/2025 09:55 EDT [...] Anders Perez DO Transcribed by: JESSICA Technologist: [facility] HOSPITALAbiodunGrand Lake Joint Township District Memorial HospitalCoding Summaryon 26-79-5796Qzuixu SummaryHTMLBase 64 YjidhcaeSQz6pXl+PGhlYWQ+SD1HEUAkI66jeIIymW7wO3VGUUqEPufgEWXVSWtUXxJtmkLaBP6gvVTg ZXJu [file] ZTo (more content not included)...NormalThe [facility]vue HospitalLyme Disease Total Antibody With Reflex to Immunoaon 09-76-3785Baoc Total Antibody EIA LCNegative Invalid Interpretation CodeNegativeThe Bellevue HospitalComment on above:Result Comment: Lyme antibodies not detected. Reflex testing is not indicated. No laboratory evidence of infection with B. burgdorferi (Lyme disease). Negative results may occur in patients recently infected (less than or equal to 14 days) with B. burgdorferi. If recent infection is suspected, repeat testing on a new sample collected in 7 to 14 days is recommended. Performed At: [facility] [id number] Austin Simms PhD Ph:[phone] By: #### [id number] #### [facility] (DEFAULT) [address] [place], [place] [address]Vmbndksgbe Visit Summaryon 78-59-6820Tipdrxdrpc Visit SummaryAmbulatory Visit Summary DARIUS THACKER :1960 [...] PM EDT With: Anders Jesus DO Where: [facility] [place] [address] [facility] [address] [place] [address]- You Need to Schedule the Following Appointments Follow Up with Anders Jesus DO, INÉS, PED When: Within 1 year Comments: annual wellness To go instructions: I recommend setting a goal to get back to being in the 180s ------ *When you see providers outside of [facility], please request that they send office [...] annually Where: [address] [place] [address] [phone] Medications What How Much When Why Instructions New ciprofloxacin-dexamethasone otic (Ciprodex 0.3%-0.1% Susp-Otic) 4 Drops Otic 2 times a day Otitis externa Duration: 7 Days Pickup at [facility][id number] Unchanged aspirin 81 Milligram By Mouth Every [...] physician if questions or concerns Pharmacy Information [facility] #[id number]: [address] [place], [place] [phone] Allergies No Known Allergies Problems Ongoing - [...] you for choosing us for your care. [facility] Medicine Office/Clinic Noteon 74-91-0502Dzduqy Medicine Office/Clinic NoteFabrockton hospital Medicine Office/Clinic Note Chief Complaint EST CARE HPI Staff Establish Care: History: Last provider: Sada Petersen Any recent labs:11/08/22 Health Maintenance UTD: Colonoscopy: [facility] [place] 10 yr recall PSA: 11/08/22 SPECIALISTS: Cardiologists Dr Camila Sen Acute: Current issues/complaints: Ear ache right. 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 Claude Chahal - [facility] Airworthiness Inspector - Dr. Camila Sen - [facility] Spine surgeon - Sujata - hx of discectomy in the -- Dr Sean Veronica To do list: _ HPI staff / Chief Complaint confirmed with the patient Interval history: _ saw urology for renal cyst - they have recommended no need for follow up using CPAP consistently PA in 2014 stent to LAD up 20 pounds compared to May 2024 was previously walking seven miles a day has been working 6 days a week hoping to get back to walking more soon June 05, 2024 -cardiology at [facility]/seen at [facility] clinic 3-month follow-up after heart cath performed on 02/28/2024. Asymptomatic. Occasional orthostatic hypotension CAD, LAD PA treated by stenting in February 2015 and [...] artery disease) (I25.10: Atherosclerotic heart disease of [place] coronary artery without angina pectoris) chronic on optimal therapy following with cardiology I would like to see this patient lose 20 pounds and resume daily walking with a goal up to 10,000 steps daily 3. Chronic stable angina (I20.89: Other forms of angina pectoris) Chronic Stable Asymptomatic today On BB (more content not included)...[facility] NorthComment on above: Result Comment: Electronically Signed By: Anders Jesus DO\Date and Time Signed: 12/13/24 18:57 EDTNo Panel Informationon 11-26-5226Bexcyc EulogioBASSAM mclean 12/02/2024 3:32 PM L Inj/Asp: bilateral glenohumeral on 11/28/2024 4:00 PM Indications: pain Details: 25 G needle, ultrasound-guided Medications (Right): 6 mg betamethasone acetate-betamethasone sodium phosphate 6 (3-3) MG/ML Medications (Left): 6 mg betamethasone acetate-betamethasone sodium phosphate 6 (3-3) MG/ML Consent was given by the patient. [facility] [id number] (SPNMMN) DARIUS THACKER ([id number]) 1960 M Date Time Provider Department 09/13/24 [place] [facility] During your visit today, we recorded the following information about you: Doris Garcia LPN 09/13/2024 12:25 PM Signed GrowYo message sent to patient with Procedure Instructions. [...] spe*04/20/2023 Encounter Status:Closed by DORIS GARCIA on 09/13/24[facility] CompanySANDIEon [id number] (SPNMMN) DARIUS THACKER ([id number]) 1960 M Date Time Provider Department 08/05/24 [...] spe*04/20/2023 Encounter Status:Closed by DORIS GARCIA on 08/05/24NoThe [facility] HospitalCNPNon [id number] (SPNMMN) DARIUS THACKER ([id number]) 1960 M Date Time Provider Department 08/02/24 [place] [facility] During your visit today, we recorded the following information about you: Doris Garcia LPN 08/02/2024 4:37 PM Signed GrowYo message sent to patient for Procedure Instructions. [...] spe*04/20/2023 Encounter Status:Closed by DORIS GARCIA on 08/02/24[facility] Visiton [id number]-up [id number] Darius Thacker 1960 M Date Provider Department Center 06/05/2024 367-CAMILA SEN UGO Rodriguez [facility] Family History Problem Relation Age of Onset Leukemia Mother Diabetes Father Heart attack Father Family Status - Relation Status Age at Mother Father Level of Service:34153 [place] OFFICE/OUTPATIENT ESTABLISHED LOW [facility]DM [facility] EastAmbulatory Visit Summaryon 06-03-2024 Ambulatory Visit SummaryAmbulatory Visit [...] Where: [facility] [address] [place] [phone] Medications What How Much When Instructions Unchanged [...] cancer done? The recommend (more content not included)...[facility] Office/Clinic Noteon 30-59-5509Uyllwkn Office/Clinic NoteUrology Office/Clinic Note Chief Complaint renal [...] 11/08/22 - kidney function wnl. TERRY 03/27/24 [facility] [place] - 7.1 x 4.5 x 7.1 cm [...] [facility] [address], [place] [phone] Additional Instructions: Patient Education Prostate Cancer Screening [...] virus vaccine, inactivated 05/31/2022 Recorded SARS-CoV-2 (COVID-19) mRNAMUL.ORD![id number] 05/31/2022 Recorded SARS-CoV-2 (COVID-19) mRNA-1273 vaccine 05/11/2021 Recorded 2023-03-13: TPV60 SARS-CoV-2 (COVID-19) mRNA-1273 vaccine 11/12/2020 Recorded SARS-CoV-2 (COVID-19) mRNA-1273 vaccine 10/19/2020 Recorded influenza virus vaccine, inactivated 05/24/2018 Recorded diphtheria/pertussis, acel/tetanus adult 08/01/2016 Recorded influenza virus vaccine, inactivated 07/21/2016 RecordedPremier Health Miami Valley Hospital NorthComment on above:Result Comment: Electronically Signed By: Francois PAYAN MD\.br\Date and Time Signed: 06/03/24 11:32 EST\.br\Electronically Co-Signed By: Marci Rangel\.br\Date and Time Co-Signed: 06/03/24 11:26 EST Refillon [id number] Darius Thacker 1960 M Date Provider Department Center 05/16/2024 KATALINA YEPEZ [facility] Family History Problem Relation Age of Onset Leukemia Mother Diabetes Father Heart attack Father Family Status - Relation Status Age at Mother Father Reason for Visit and Comments: Med Refill [[id number]][facility] Office/Clinic Noteon 40-28-9278Mqcnw Office/Clinic NoteSleep Office/Clinic Note History of Present [...] relatively stable. He was to switch his [employer] company as well. Review of Systems Constitutional: [...] virus vaccine, inactivated 05/31/2022 Recorded SARS-CoV-2 (COVID-19) mRNAMUL.ORD![id number] 05/31/2022 Recorded SARS-CoV-2 (COVID-19) mRNA-1273 vaccine 05/11/2021 Recorded 2023-03-13: TPV60 SARS-CoV-2 (COVID-19) mRNA-1273 vaccine 11/12/2020 Recorded SARS-CoV-2 (COVID-19) mRNA-1273 vaccine 10/19/2020 Recorded influenza virus vaccine, inactivated 05/24/2018 Recorded diphtheria/pertussis, acel/tetanus adult 08/01/2016 Recorded influenza virus vaccine, inactivated 07/21/2016 RecordedPremier Health Miami Valley Hospital NorthComment on above:Result Comment: Electronically Signed By: Aliyah MILLER, Oliva Kilgore\.br\Date and Time Signed: 05/06/24 10:07 EDTUS Renalon 08-15-1246MW RenalExam Date/Time: 03/27/2024 09:33 EDT Reason for [...] Jagdish Sanchez MD Transcribed by: JESSICA Technologist: [facility] DaytonRefillon [id number] Darius Thacker 1960 Date Provider Department Center 03/27/2024 [id number]-VCQKOYZOAKOSTA RAVI [facility] Family History Problem Relation Age of Onset Leukemia Mother Diabetes Father Heart attack Father Family Status - Relation Status Age at Mother Father Reason for Visit and Comments: Med Refill [[id number]][facility] HospitalHPon 08-56-6428NH History Of Present Illness Darius Thacker is a 63 y.o. male with a PMHx significant for CAD s/p PCI LAD 2014, HFrEF, HTN, HLD. Patient presents with symptoms of chest pain and dyspnea. Patient presents today for coronary angiogram for evaluation of CAD. Past Medical History He has a past medical history of Abnormal ECG, CHF (congestive heart failure) ([facility]/HCC), Coronary artery disease, Hyperlipidemia, Hypertension, and Myocardial infarction ([facility]). Surgical History He has a past surgical [...] Unstable angina pectoris due to coronary arteriosclerosis ([facility]) Coronary arteriosclerosis 63 y.o. year old male [...] to proceed. Signed, Julisa Medellin MD PGY-4 [employer] Consultant Pager: [phone] HealthcareNURSNOTEon 31-27-8638SACDIBUUJf ok for discharge at 12:[address] Monroy.[facility] HospitalNRUTH educated pt on d/c instructions. RN encouraged pt to voice any questions or concerns. Pt verbalizes no questions or concerns at this time. Pt was wheeled off of unit with all of belongings.[facility]36on [id number] lab results from 02/13/2024: Katalina Ng, AARON [...] think. LM for patient to return my call.[facility] HospitalOrders Onlyon 59-45-9772Lehmmz [id number] Darius Thacker 1960 M Provider Department Center 02/20/2024 [facility] [place] [facility] Family History Problem Relation Age of Onset Leukemia Mother Diabetes Father Heart attack Father Family Status - Relation Status Age at Mother FatherNormalUniversOhioHealth Grant Medical CenterAbstracton 13-93-2661Blywwlvu [id number] Darius Thacker 1960 [place] Provider Department Center 02/09/2024 CAMILA KANG [facility] CARD [place] Family History Problem Relation Age of Onset Leukemia Mother Diabetes Father Heart attack Father Family Status - Relation Status Age at Mother FatherNormalUniversOhioHealth Grant Medical CenterLetter (Out)on 32-21-2154Dsjzxn (Out)[id number] Darius Thacker 1960 Provider Department Center 02/09/2024 None-None [facility] AUTH [place] [facility] Family History Problem Relation Age of Onset Leukemia Mother Diabetes Father Heart attack Father Family Status - Relation Status Age at Mother FatherNormalUniversOhioHealth Grant Medical Center29on 60-62-481556Xbpzhqzm by: KATALINA NG on: 01/24/2024 06:57 AM Modules accepted: OrdersNormalUniversOhioHealth Grant Medical CenterOffice Visiton 44-03-3912Edtnxj-up [id number] Darius Thacker 1960 M Date Provider Department Center 01/23/2024 KATALINA YEPEZ [facility] [place] [facility] Family History Problem Relation Age of Onset Leukemia Mother Diabetes Father Heart attack Father Family Status - Relation Status Age at Mother Father Level of Service:98101 [place] OFFICE/OUTPATIENT ESTABLISHED MOD MDM 30 [facility] 07-10-1087Ocevhd-up visit [id number] Darius Thacker 1960 M Date Provider Department Center 06/27/2023 CAMILA KANG [facility] Family History Problem Relation Age of Onset Leukemia Mother Diabetes Father Heart attack Father Family Status - Relation Status Age at Mother Father Level of Service:72395 [place] OFFICE/OUTPATIENT ESTABLISHED LOW MDM 20-29 [facility] EastCBC AUTO DIFFon 91-97-2503EDRU #0.0 103/ul Normal0.0-0.1[facility] Medical CenterComment on above:Performed By: #### CBC #### [facility] [address] [address] [address] Lenard MaloneyBasophils/100 WBC (Bld)0.7 %Normal0.2-2.0[facility] Comment on above:Performed By: #### CBC #### [facility] [address] [address] [address] Lenard Conte #0.2 103/ulNormal0.0-0.7The [facility] SystemComment on above: Performed By: #### CBC #### [facility] [address] [address] [address] Lenard Hernándezosinophils/100 WBC (Bld)2.8 %Normal0.9-7.0[facility] Comment on above:Performed By: #### CBC #### [facility] [address] [address] [address] Lenard Hernándezrythrocyte distribution width (RBC) [Ratio]11.6 %Ofekey54.0-15.0 [facility] Medical CenterComment on above:Performed By: #### CBC #### [facility] [address] [place] [address] Dr. Lenard MaloneyHematocrit (Bld) [Volume fraction]41.1 %Critically low42.0-54.0 The [facility] SystemComment on above:Performed By: #### CBC #### [facility] [address] [place] [address] Dr. Lenard MaloneyHemoglobin (Bld) [Mass/Vol]14.3 g/tPLakbgg79.0-18.0The [facility] SystemComment on above:Performed By: #### CBC #### [facility] [address] [place] [address] Dr. Lenard MaloneyIG #0.01 10e3/ulNormal0.00-0.03The [facility] SystemComment on above:Performed By: #### CBC #### [facility] [address] [place] [address] Dr. Lenard Lama %0.2 %Normal0.0-0.5The [facility] SystemComment on above: Performed By: #### CBC #### [facility] [address] [place] [address] Dr. Lenard Berger #2.1 103/ulNormal1.2-3.8The [facility] SystemComhutzel women's hospital on above:Performed By: #### CBC #### [facility] [address] [place] [address] Dr. Lenard Doughertymphocytes/100 WBC (Bld)34.5 %Fkeqre41.5-60.0The [facility] SystemComment on above:Performed By: #### CBC #### [facility] [address] [place] [address] Dr. Lenard BaezUAL DIFF REQNONormalThe [facility] SystemComment on above: Performed By: #### CBC #### [facility] [address] [place] [address] Dr. Lenard Ornelas (RBC) [Entitic mass]33.3 ezChdkoa64.9-34.0The [facility] SystemComment on above:Performed By: #### CBC #### [facility] [address] [address] [address] Lenard DickensHC (RBC) [Mass/Vol]34.8 g/cAIshaku36.9-35.2The [facility] SystemComment on above:Performed By: #### CBC #### [facility] [address] [address] [address] Lenard DickensV (RBC) [Entitic vol]95.8 fLCritically high80.0-94.0The [facility] SystemComment on above:Performed By: #### CBC #### [facility] [address] [place] [address] Dr. Lenard Robertson #0.6 103/ulNormal0.3-0.8The [facility] SystemComment on above:Performed By: #### CBC #### [facility] [address] [place] [address] Dr. Lenard Burtonocytes/100 WBC (Bld)10.0 %Normal1.7-12.0The [facility] Comment on above:Performed By: #### CBC #### [facility] [address] [place] [address] Dr. Lenard Flynn #3.2 103/ulNormal1.4-6.5The [facility] SystemComment on above:Performed By: #### CBC #### [facility] [address] [place] [address] Dr. Lenard Garrettutrophils/100 WBC (Bld)51.8 %Qyzlbx22.0-75.0The [facility] SystemComment on above:Performed By: #### CBC #### [facility] [address] [place] [address] Dr. Lenard Dodgelet mean volume (Bld) [Entitic vol]8.0 fLCritically low 9.5-13.5The [facility] SystemComment on above:Performed By: #### CBC #### [facility] [address] [place] [address] Dr. Lenard MaloneyPLT224 103/grPpumgo983-777Ipn [facility] SystemComment on above: Performed By: #### CBC #### [facility] [address] [address] [address] Lenard MaloneyRBC4.29 106/ulCritically low4.70-6.10The [facility] SystemComment on above:Performed By: #### CBC #### [facility] [address] [address] [address] Lenard MaloneyWBC6.1 103/ulNormal4.0-11.0The [facility] on above: Performed By: #### CBC #### [facility] [address] [address] [address] Lenard MaloneyLIPID PROFILEon 84-12-7927IJWY-HDL RATIO NORMSEE [facility] CenterComhutzel women's hospital on above:Result Comment: 3.3 - 4.4 LOW RISK 4.4 - 7.1 AVERAGE RISK 7.1 - 11.0 MODERATE RISK >11.0 HIGH RISKPerformed By: #### LIPID, CMP #### [facility] [address] [place] [address] Dr. Lenard MaloneyCholesterol [Mass/Vol]195 mg/dLNormal<=200The [facility] Comment on above:Performed By: #### LIPID, CMP #### [facility] [address] [place] [address] Dr. Lenard MaloneyCholesterol in HDL [Mass/Vol]102 mg/dLCritically dzmt96-20Gqx [facility] on above:Performed By: #### LIPID, CMP #### [facility] [address] [place] [address] Dr. Lenard MaloneyCholesterol in LDL [Mass/Vol]70.0 mg/dLMemorial Health System on above:Performed By: #### LIPID, CMP #### [facility] [address] [place] [address] Dr. Lenard Barrettestergold.total/Cholesterol in HDL [Mass ratio]1.9 {ratio} NormalThe Mount St. Mary Hospitalment on above:Performed By: #### LIPID, CMP #### [facility] [address] [address] [address] Lenard Troy NORMAL> or = 60 mg/dl - LOW CARDIOVASCULAR RISK <40 mg/dl - HIGH CARDIOVASCULAR RISKMercy Health St. Vincent Medical CenterComment on above:Performed By: #### LIPID, CMP #### [facility] [address] [place] [address] Dr. Lenard Harrington CALC NORMALSEE BELOWMercy Health St. Vincent Medical CenterComment on above:Result Comment: <100 mg/dl OPTIMAL 100 - 129 mg/dl NEAR OR ABOVE OPTIMAL 130 - 159 mg/dl BORDERLINE HIGH 160 - 189 mg/dl HIGH >190 mg/dl VERY HIGH Performed By: #### LIPID, CMP #### [facility] [address] [place] [address] Dr. Lenard MaloneyTriglyceride [Mass/Vol]115 mg/dLNormal<=150The [facility] Comment on above:Performed By: #### LIPID, CMP #### [facility] [address] [place] [address] Dr. Lenard Haynes CALC23.0 mg/dLNoParkview Health Bryan HospitalComment on above: Performed By: #### LIPID, CMP #### [facility] [address] [place] [address] Dr. Lenard Walden 14(COMP METB)on 19-11-1687Pruckgz [Mass/Vol]4.5 g/dLNormal 3.4-5.0The [facility] SystemComment on above:Performed By: #### LIPID, CMP #### [facility] [address] [place] [address] Dr. Lenard MaloneyAlbumin/Globulin [Mass ratio]1.4 {ratio}NormalThe [facility] SystemComment on above:Performed By: #### LIPID, CMP #### [facility] [address] [place] [address] Dr. Lenard Cruz [Catalytic activity/Vol]49 U/QNqyfcl22-906Tgp [facility] SystemComment on above:Performed By: #### LIPID, CMP #### [facility] [address] [place] [address] Dr. Lenard Orlando [Catalytic activity/Vol]26 U/RBdtwlf31-23Xmg [facility] SystemComment on above:Performed By: #### LIPID, CMP #### [facility] [address] [place] [address] Dr. Lenard Torreson gap [Moles/Vol]14.2 mmol/LNormalUniversity Hospitals [facility] Center Comment on above:Performed By: #### LIPID, CMP #### [facility] [address] [place] [address] Dr. Lenard MaloneyAST [Catalytic activity/Vol]23 U/VSzungo57-23Keu [facility] SystemComment on above:Performed By: #### LIPID, CMP #### [facility] [address] [place] [address] Dr. Lenard MaloneyBilirubin [Mass/Vol]0.6 mg/dLNormal0.2-1.0[facility] Comment on above:Performed By: #### LIPID, CMP #### [facility] [address] [place] [address] Dr. Lenard MaloneyCalcium [Mass/Vol]9.2 mg/dLNormal8.5-10.1[facility] Comment on above:Performed By: #### LIPID, CMP #### [facility] [address] [place] [address] Dr. Lenard MaloneyChloride [Moles/Vol]97 mmol/LCritically bmg45-395Plf [facility] SystemComment on above:Performed By: #### LIPID, CMP #### [facility] [address] [place] [address] Dr. Lenard MaloneyCO2 [Moles/Vol]28.7 mmol/WGnrhht29.0-32.0[facility] Comment on above:Performed By: #### LIPID, CMP #### [facility] [address] [place] [address] Dr. Lenard MaloneyCreatinine [Mass/Vol]0.84 mg/dLNormal0.70-1.30The [facility] SystemComment on above:Performed By: #### LIPID, CMP #### [facility] [address] [address] [address] Lenard HernándezGFR-AF SAMOAN>60Normal>=60The [facility] SystemComment on above:Performed By: #### LIPID, CMP #### [facility] [address] [address] [address] Lenard HernándezGFR-NON AF SAMOAN>60Normal>=60The [facility] SystemComment on above:Performed By: #### LIPID, CMP #### [facility] [address] [address] [address] Lenard MaloneyGlobulin (S) [Mass/Vol]3.2 g/dLNormalThe [facility] SystemComment on above:Performed By: #### LIPID, CMP #### [facility] [address] [place] [address] Dr. Lenard MaloneyGlucose [Mass/Vol]109 mg/dLCritically cbzx17-429Gzz [facility] SystemComment on above:Performed By: #### LIPID, CMP #### [facility] [address] [place] [address] Dr. Lenard MaloneyPotassium [Moles/Vol]3.9 mmol/LNormal3.5-5.1The [facility] Comment on above:Performed By: #### LIPID, CMP #### [facility] [address] [place] [address] Dr. Lenard MaloneyProtein [Mass/Vol]7.7 g/dLNormal6.4-8.2[facility] Comment on above:Performed By: #### LIPID, CMP #### [facility] [address] [place] [address] Dr. Lenard MaloneySodium [Moles/Vol]136 mmol/NGlpidu206-798Ttb [facility] Comment on above:Performed By: #### LIPID, CMP #### [facility] [address] [place] [address] Dr. Lenard MaloneyUrea nitrogen [Mass/Vol]17.0 mg/dLNormal7.0-18.0The [facility] SystemComment on above:Performed By: #### LIPID, CMP #### [facility] [address] [address] [address] Lenard MaloneyUrea nitrogen/Creatinine [Mass ratio]20.2 mg/mgMercy Health St. Vincent Medical CenterComment on above:Performed By: #### LIPID, CMP #### [facility] [address] [address] [address] Lenard MaloneyNo Panel Informationon 90-76-8227Vugsplyqf ClinicNo Panel InformationOhiohealth O'Bleness Hospital Vital Signs Date TimeVital SignValuePerforming TspsqpeubPqbdqppw81-50-4352 15:40-0400Body .8 cmMichael [email or web address] DO Work Phone: NOH[facility] DivisionHxikihoobl87-24-8789 15:40-0400Body mass index (BMI) [Ratio]28.7 kg/n3Gvmnebv 5173.com DO Work Phone: [facility] DivisionGekwhxpzps31-31-0518 15:40-0400Body emoejy24.72 kgMichael [email or web address] DO Work Phone: [facility] ServicesIeayedpvrp65-91-3908 10:46-0500Blood Pressure LocationPatrick Carticipate [facility]11-18-2024 10:46-0500Body lnxnbsxbokp06.6 [degF]Francois PAYAN [facility]11-18-2024 10:46-0500Diastolic blood ulckyedm16 mm[Hg]Francois PAYAN [facility]11-18-2024 10:46-0500Heart rate83 /minPatrick PAYAN [facility]11-18-2024 10:46-0500Respiratory rate17 /minPatrick PAYAN [facility]11-18-2024 10:46-0500Systolic blood mm[Hg]Francois PAYAN [facility]06-15-2023 13:30-0400Body sfbzig942.8 cmPacc 2 Work Phone: [facility]06-15-2023 13:30-0400Body temperature 97.2 [degF]Pacc 2 Work Phone: [facility]06-15-2023 13:30-0400Body hocffd36.74 kgPacc 2 Work Phone: [facility]06-15-2023 13:30-0400Diastolic blood ielgrulf82 mm[Hg]Pacc 2 Work Phone: [facility]06-15-2023 13:30-0400Heart rate57 /min Pacc 2 Work Phone: [facility]06-15-2023 13:30-0400Respiratory rate 16 /minPacc 2 Work Phone: [facility]06-15-2023 13:30-9346UnF6% (BldA) [Mass fraction]100 %Pacc 2 Work Phone: [facility]06-15-2023 13:30-0400Systolic blood kipdhrfb745 mm[Hg]Pacc 2 Work Phone: [facility]11-02-2022 14:19-0400Body zabrqn08.66 kgPhizayramaritza Snow DO Work Phone: [facility]11-02-2022 14:19-0400Diastolic blood osckeisz38 mm[Hg]Barber Abelis DO Work Phone: [facility]11-02-2022 14:19-0400Heart rate73 /min Barber Abelis DO Work Phone: [facility]11-02-2022 14:19-0400Systolic blood mulkedol314 mm[Hg]Barber Abelis DO Work Phone: [facility] Encounters Encounter DateEncounter TypeCare ProviderFacilityStart: 73-77-0702mxyxxztywb Anders JesusFacility: [place]Start: 03-06-2025 End: 05-65-8671xpzpplrrhiAlncl M. DempseyFacility:[facility] CENTERtart: 03-06-2025 End: 42-45-5677Wcqgoxo encounter procedureWilly Kim [phone]-UytslC[facility] Clinic [facility] Start: 02-12-2025 End: 24-19-9086Cbwnhz flowsheetKarla Lozano DO Work Phone: [facility] EyeStart: 02-12-2025 End: 77-62-0940Ahcjbd flowsheetKarla Tomlin Zahlisabelle DO Work Phone: [facility] EyeStart: 02-12-2025 End: 66-38-2509Ewtdfu outpatient new 45 minutesJojoe Lozano DO Work Phone: [facility] EyeComment on above:Dry eyes (Primary Dx); Blepharitis of upper and lower eyelids of both eyes, unspecified type; PseudophakiaStart: 02-12-2025 End: 31-97-6384frugkmmgotIBGKMSEE D ZAHLERNot AvailableStart: 02-03-2025 End: 53-75-0035bmbxknrecoIeoxxz J CromleyFacility:FTMCStart: 01-18-2025 ambulatoryRobnitin Jesus DOFacility:[facility] Hospitaltart: 12-13-2024 End: 44-58-5012fzauyexcqsQidrgg J CromleyFacility: [place]Start: 12-13-2024 End: 60-72-5900Fmidsfp encounter Wojciech [facility]Mem[facility] [place] Start: 11-28-2024 End: 22-22-0983Ayqmfhl encounter procedureMichael T Dodge DO Work Phone: noms [facility] ORTHOComment on above:Primary osteoarthritis of both shoulders (Primary Dx); Acute pain of both shouldersStart: 11-28-2024 End: 60-22-1807rojyfgpqbpHCQABRD T POWERSNot AvailableStart: 11-28-2024 End: 11-20-4527mjmjsryhbcYYFYQTD T POWERSNot AvailableStart: 11-05-2024 ambulatoryBasem HaddadFacility:FM MilanStart: 09-13-2024 End: 82-28-8575Vyzbsbkhu encounterPhillmaritza Snow DO Work Phone: Spine InstituteComment on above:Preperations for Procedure (Mychart)Start: 08-05-2024 End: 52-15-6666Itckzuzub encounterPhillip Isamar Snow DO Work Phone: spine InstituteComment on above:Preperations for Procedure CallStart: 08-02-2024 End: 09-39-3765Knjcdw OnlyPhillmaritza Snow DO Work Phone: spine InstituteComment on above:Lumbosacral neuritis (Primary Dx)Preperations for Procedure (Mychart)Start: 07-29-2024 End: 59-17-6344avlbjmysaqEdsreys G Mendis DO Work Phone: Spfcv MedicineComment on above:Lumbosacral neuritis (Primary Dx)Start: 07-29-2024 End: 68-40-6497Pforqiovltye consultation with patientPhillmaritza Snow DO Work Phone: spine MedicineStart: 06-05-2024 End: 37-95-0264ekctotnhptLFNSEE [facility] Start: 06-03-2024 End: 46-93-7130hkyoblojbvEcaafcf R WATERSFacility:EU BellevueStart: 06-03-2024 End: 28-22-4946Qgylvgo encounter procedureFrancois PAYAN [facility] Jennifer start: 05-06-2024 End: 73-39-0116jbquyjhigaHmrmh Jame HaddadFacility:FTMCStart: 05-06-2024 End: 28-87-5228Qtlgjnr encounter procedureBasehelen Ly [facility] Start: 04-16-2024 End: 46-54-8574Wnwcacxta encounterMaria D SAMANO Work Phone: NOMS NE FMComment on above:Letter for School/Work Start: 03-27-2024 End: 73-76-8634ninrcyjvlqEpqgote R WATERSFacility:FTMCStart: 03-27-2024 End: 56-69-9604Jsclxci encounter procedureFrancois PAYAN [facility] Start: 02-28-2024 End: 70-91-5222iljowbijszKZVLRG [facility] Start: 01-23-2024 End: 58-09-6810uemiffrtwwNEYCZMI [facility]tart: 10-25-2023 End: 27-23-8184fufrdbqfvaAQEYUJY S LOUDENSLAGERFacility:[facility] Cantontart: 10-25-2023 End: 02-37-3909Yinapyf encounter procedureRanalla Carrasquilloger OD Work Phone: OphthalmologyComment on above:Keratoconjunctivitis sicca of both eyes not specified as Sjogren's (Primary Dx); 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 of both eyes; Pinguecula of left eye; Pterygium, right; Pseudophakia of both eyes; History of YAG laser capsulotomy of lens, leftStart: 07-42-9224zlvibxotfxDidxoca G Mendis DO Work Phone: Spqtc MedicineComment on above:Back PainStart: 06-27-2023 End: 55-20-3591uckvegtzluZZFEAE [facility] Start: 06-01-2023 End: 12-56-1647Wfduwvk encounter procedureNegra Schaffer MD Work Phone: OphthalmologyComment on above:Left posterior capsular opacification (Primary Dx); Pseudophakia of both eyesStart: 03-13-2023 End: 57-99-9367Pmugdrn encounter procedurePajose PAYAN [facility] start: 03-08-2023 End: 62-16-5738Wicpzwy encounter procedureStepshawn Jimenes OD Work Phone: OphthalmologyComment on above:S/P cataract extraction and insertion of intraocular lens, left (Primary Dx)Start: 07-91-0609NkmirvJothv Haber MD Work Phone: OphthalmologyComment on above:Refill RequestStart: 12-29-2022 End: 63-69-4211Zsrcdvp encounter procedureEye Measurements Work Phone: OphthalmologyComment on above:Combined forms of 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Start: 12-29-2022 End: 84-06-4711Czffqlgna to establishmentPacc [place] Work Phone: [facility] [place] FHCStart: 12-29-2022 End: 23-16-5358prwaliaynnTijc [place] Work Phone: Pre AnesthesiaComment on above:Pre-op evaluation (Primary Dx); JOSE (obstructive sleep apnea); Uncomplicated asthma, unspecified asthma severity, unspecified whether persistent; Hyperlipidemia, unspecified hyperlipidemia type; Heart failure, unspecified HF chronicity, unspecified heart failure type (HCC); Essential (primary) hypertension; Generalized ischemic myocardial dysfunctionStart: 12-29-2022 End: 81-92-2770Przngvquzlkme examination donePacc [place] Work Phone: pre AnesthesiaStart: 18-92-1891Exdxgwnox encounter Negra Schaffer MD Work Phone: OphthalmologyComment on above:Schedule SurgeryStart: 12-15-2022 End: 45-06-8880Ftnkqbg encounter procedureNegra Schaffer MD Work Phone: OphthalmologyComment on above:Combined forms of 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 (Primary Dx); Myopia with astigmatism and presbyopia, bilateralStart: 11-08-2022 End: 22-72-4746ckrmkohexqNEBNARE SOMMERSFacility:T2Mjqjl: 10-31-2022 End: 57-34-9827xningraiiaHuiokhb Isamar Snow DO Work Phone: Spejs MedicineComment on above:Chronic right-sided low back pain with right-sided sciatica (Primary Dx); Radiculopathy of lumbar regionStart: 10-31-2022 End: 22-75-8902Qddogtkknsnj consultation with Iman Snow DO Work Phone: ccf [facility]ITALtart: 10-11-2022 End: 20-35-1301Unhazxf encounter procedureMaria D PETERSEN [facility] Start: 96-22-0557Dwxqdemtq encounterPhillmaritza Snow DO Work Phone: spine InstituteComment on above:post injection follow upStart: 16-37-3279Jgcwgtzli encounterPhillmaritza Isamar Snow DO Work Phone: Spdpd InstituteComment on above:Preparations For Procedures (Pre-injection call)Start: 09-16-2022 End: 68-52-0462bjhkzabjszET-C Maria D Petersen Work Phone: [facility] Work Phone: Start: 09-16-2022 End: 71-43-4354Xzxfrmiain RecurringPACorettaC Maria D Petersen Work Phone: [facility]tart: 08-10-2022 End: 73-99-4477Czcrmkzpuf hospital visit by physician Sujata [facility] 2 (Istat/1.5) Work Phone: [facility] Radiology MRIComment on above:Chronic right-sided low back pain with right-sided sciatica [M54.41, G89.29]Start: 07-25-2022 End: 17-43-8215ydecvuekcjDmfgcoe G Mendis DO Work Phone: Sphgb MedicineComment on above:Chronic right-sided low back pain with right-sided sciatica (Primary Dx); Lumbosacral radiculitis; Radiculopathy of lumbar regionStart: 07-25-2022 End: 71-45-0310Bzgplvvvewsp consultation with Iman Snow DO Work Phone: ccf [facility] FHCStart: 92-66-6772Lchexzsnj encounter Barber Snow DO Work Phone: Sprzi MedicineComment on above:OrdersStart: 05-18-2022 End: 71-87-1245Dwogfxv encounter procedureBarber Snow DO Work Phone: spine MedicineComment on above:Acute right-sided low back pain with right-sided sciatica (Primary Dx); Lumbosacral radiculitisStart: 55-54-7197jrbukoavfmKUKHAYE TUCKERFacility:H1 Start: 10-22-2018 End: 01-84-1028Keliile encounter procedureDEFAULT PHYSICIANFacility:[facility]GAStart: 10-02-2018 End: 78-00-9856Teahlne encounter procedurePROVIDER UNKNOWNFacility:NCMCStart: 09-20-2018 End: 10-69-2195Pqprwsd encounter procedureDEFAULT PHYSICIANFacility:[facility]GAStart: 09-12-2018 End: 87-86-8738Wkcdbwk encounter procedureDEFAULT PHYSICIANFacility:[facility] Procedures DateProcedureProcedure DetailPerforming ClinicianStart: 51-09-3459Olzmpvn of percutaneous transluminal coronary angioplastyRobert J FaizanmleyStart: 11-28-2024 Arthrocentesis aspir&/inj major jt/bursa w/usMichael T Dodge DO Work Phone: Start: 71-51-7824Efyzr shoulder complete minimum 2 viewsMichael T Dodge DO Work Phone: Start: 23-13-1939Bkdb-cataract laser surgeryAisanjeev Schaffer MD Work Phone: Start: 68-49-6323Uiwrkux of cataract extractionStatus post cataract extractionAisanjeev Cristina MD Work Phone: Start: 74-02-7781XSB BIOMETRY W/ IOL CALC OU (BOTH EYES)Negra Schaffer MD Work Phone: Start: 02-63-0748Oizcr 1995 panel - Serum or PlasmaMr (Istat/1.5) Work Phone: Start: 09-32-5847Pus spinal canal lumbar w/o contrast materialPhillip G Mendis DO Work Phone: Start: 25-36-9997HwhiqeztiuuQgvbmuu Sommers PA Work Phone: back structure, excluding neck (body structure)Francois PAYAN Bilateral cataracts (disorder)Francois PAYAN History of placement of stent in anterior descending branch of left coronary arteryHistory of placement of stent in LAD coronary arteryRobert CromleyPlacement of stent in coronary arteryPatrick ORA Plan of Treatment DateCare ActivityDetailAuthorStart: 28-13-5115Qfpow 1996 panel - Serum or Plasma Lipid ScreeningAultman Orrville Hospitaltart: 87-91-0570Oehwg panelLipid Screening [facility]tart: 08-93-9139FYDAJ SCREENLIPID SCREENAultman Orrville Hospitaltart: 66-41-4594Ezddpxqkv for malignant neoplasm of colonNOMS HealthcareStart: 67-06-0263Skhgn microalbumin profileAultman Orrville Hospitaltart: 84-02-0020WXJGOOAW SCREENDIABETES SCREENAultman Orrville Hospitaltart: 69-52-5322Ljcdxaxy ScreeningDiabetes ScreeningNew Hampton ClinicStart: 27-66-0074Xxaybwssr vaccinationInfluenza Vaccine (#1)NOM HealthcareStart: 02-12-2025 End: 54-36-5484Gngcdtw encounter oiohzmhog79/30/2025 1:30 PM EDT Office Visit [facility] [address] [place] [id number] Karla Lozano, DO [address] [place] [address] ArrivedLackey [facility] Hospital EyeComment on above:ArrivedStart: 11-13-2024 End: 00-87-7394jlxlywafff06/30/2025 4:00 PM EDT [facility] Spine Medicine [address] [place] [address] Barber Snow DO [address] [place] [address] 2-4 weeksSpine MedicineComment on above:2-4 weeksStart: 10-10-2024 End: 61-26-7964Ffxhwzmfy to same day surgery zdxdsy1310/10/2024 7:30 AM EDT - 10/10/2024 8:05 AM EDT Surgery Ambulatory Surgery [address] [place] [address] Barber Snow DO [address] [place] [address] INJECTION ANESTHETIC AGENT/STEROID TRANSFORAMINAL EPIDURAL LUMBAR BILATERAL W/IMAGE GUIDANCE FLUORO OR CTAmbulatory SurgeryComment on above:INJECTION ANESTHETIC AGENT/STEROID TRANSFORAMINAL EPIDURAL LUMBAR BILATERAL W/IMAGE GUIDANCE FLUOROOR CTStart: 10-10-2024 End: 88-31-5083Frp anes&/strd w/img tfrml edrl lmbr/sac 1 lvlINJECTION ANESTHETIC AGENT/STEROID TRANSFORAMINAL EPIDURAL LUMBAR BILATERAL W/IMAGE GUIDANCE FLUOROOR CT Lumbosacral neuritis 10/10/2024 7:30 AM [facility] Start: 22-69-7693Zykwnjyxve hospital visit by lnogejvum17/27/2025 7:30 AM EDT Hospital Encounter Ambulatory Surgery [address] [place] [address] Barber Snow, DO [address] [place] [address] Lumbosacral neuritis [M54.17]Ambulatory SurgeryComment on above:Lumbosacral neuritis [M54.17]Start: 09-06-2024 End: 55-97-9346rqwfleqdsm68/21/2025 4:20 PM [facility] Spine Medicine [address] [place] [phone] Barber Snow, DO [address] [place] [address] 2-4 weeksSpine MedicineComment on above:2-4 weeksStart: 08-15-2024 End: 06-16-9470Bxuxrkabv to same day surgery grtqdz9508/15/2024 9:39 AM EST - 08/15/2024 10:14 AM EST Surgery Ambulatory Surgery [address] [place] [address] Barber Snow, DO [address] [place] [address] INJECTION ANESTHETIC AGENT/STEROID TRANSFORAMINAL EPIDURAL LUMBAR BILATERAL W/IMAGE GUIDANCE FLUORO OR CTAmbulatory SurgeryComment on above:INJECTION ANESTHETIC AGENT/STEROID TRANSFORAMINAL EPIDURAL LUMBAR BILATERAL W/IMAGE GUIDANCE FLUOROOR CTStart: 08-15-2024 End: 93-23-7617Jfh anes&/strd w/img tfrml edrl lmbr/sac 1 lvlINJECTION ANESTHETIC AGENT/STEROID TRANSFORAMINAL EPIDURAL LUMBAR BILATERAL W/IMAGE GUIDANCE FLUOROOR CT Lumbosacral neuritis 08/15/2024 9:39 AM [facility] Start: 92-85-6178Zgciezrfnf hospital visit by lsurkutqv10/30/2025 9:39 AM [facility] Encounter Ambulatory Surgery [address] [place] [address] Barber Snow, DO [address] [place] [address] Lumbosacral neuritis [M54.17]Ambulatory SurgeryComment on above:Lumbosacral neuritis [M54.17]Start: 73-76-2216Rfdbz-19 Vaccine ()Covid-19 Vaccine ()[facility]: 11-67-7952Hkurrubum vaccinationAultman Orrville Hospitaltart: 38-93-4433CP CONTROLLED (<130/80)BP CONTROLLED (<130/80)[facility]art: 18-09-5402HX CONTROLLED (<130/80)BP CONTROLLED (<130/80)[facility]tart: 12-15-2023 End: 95-20-9145PRA BIOMETRY W/ IOL CALC OU (BOTH EYES)IOL BIOMETRY W/ IOL CALC OU (BOTH EYES) OPHT Imaging Routine Combined forms of age-related cataractof both eyes Expected: 12/15/2023, Expires: 06/07/2024[facility] Work Phone: Comment on above:Expected: 12/15/2023, Expires: 06/07/2024Start: 84-38-3930Eebdkbbdtx Health ScreeningBehavioral Health ScreeningAultman Orrville Hospitaltart: 32-92-1392Nabijaqtvb AssessmentDepression AssessmentAultman Orrville Hospitaltart: 94-77-6269Ngcqg-19 Vaccine () Covid-19 Vaccine ()[facility]: 75-09-0038Yxkopcovl vaccinationAultman Orrville Hospitaltart: 97-52-7580BLOGJBXI VACCINE (2 of 2)SHINGRIX VACCINE (2 of 2)[facility]: 14-77-2051GJKYLMDJJU ASSESSMENTDEPRESSION ASSESSMENTAultman Orrville Hospitaltart: 59-12-2344Yitjdcolg vaccinationINFLUENZA (#1) [facility]: 71-74-9283TJJTOUGZST ASSESSMENTDEPRESSION ASSESSMENT [facility]: 22-28-8652JDYTW-19 VACCINE (4 - Booster for Moderna series)COVID-19 VACCINE (4 - Booster for Moderna series)[facility]: 26-61-1601WAK Vaccine (1 - 1-dose 60+ series)RSV Vaccine (1 - 1-dose 60+ series) [facility]: 66-19-6203UIY Vaccine (1 - Risk 60-74 years 1-dose series)RSV Vaccine (1 - Risk 60-74 years 1-dose series)[facility]: 00-00-9550Tylgwtgke for malignant neoplasm of colonAultman Orrville Hospitaltart: 05-42-4194VVPCIJOQ CANCER SCREENING DISCUSSIONPROSTATE CANCER SCREENING DISCUSSIONAultman Orrville Hospitaltart: 59-11-8045Txsxzjoi specific antigen measurement Prostate Cancer Screening DiscussionAultman Orrville Hospitaltart: 02-29-5470BBYJVEKO VACCINE (1 of 2)SHINGRIX VACCINE (1 of 2)[facility]: 2006 COLOGUARD (FIT-DNA)COLOGUARD (FIT-DNA)[facility]: 2006 ColonoscopyCOLONOSCOPYAultman Orrville Hospitaltart: 52-04-1963UNYFXJSPAQ CANCER SCREENINGCOLORECTAL CANCER SCREENINGAultman Orrville Hospitaltart: 88-94-8938DO COLONOGRAPHYCT COLONOGRAPHYAultman Orrville Hospitaltart: 76-48-2310WLQSPEKJ SCREEN DIABETES SCREENAultman Orrville Hospitaltart: 39-08-9928KSVIB OCCULT BLOODFECAL OCCULT BLOODAultman Orrville Hospitaltart: 15-24-4521Spbfutbmn for malignant neoplasm of colon [facility]: 93-41-6747QSOMNIIMGMXMQPNNFFPFQCBAZOMtikxaogu Clinic Start: 05-29-6847WNHKW SCREENLIPID SCREENAultman Orrville Hospitaltart: 93-76-8161Lvdei microalbumin profileDTAP,TDAP,TD (1 - Tdap)[facility]: 1979 ANNUAL PCP TEAM CHRONIC DISEASE VISITANNUAL PCP TEAM CHRONIC DISEASE VISIT [facility]: 64-92-3752Yjptqxc ScreeningAnxiety ScreeningAultman Orrville Hospitaltart: 49-85-3312JJ Controlled (<130/80)BP Controlled (<130/80)[facility]: 29-09-4102Tsworldiqf ScreeningDepression ScreeningOhiohealth O'[facility]leness Hospital Start: 10-92-5360RGFZWDIYW C SCREENINGHEPATITIS C SCREENINGOhiohealth O'Bleness Hospital Start: 96-23-8478Qrliyryal C screeningHepatitis C ScreeningOhiohealth O'Bleness Hospital Start: 38-24-0748QOU SCREENINGHIV SCREENINGAultman Orrville Hospitaltart: 27-51-8854ICM screeningHIV ScreeningAultman Orrville Hospitaltart: 52-27-9853MTFAHTVZPKIULWKIMRZS [facility]art: 41-11-0982NIRDLKLFXMYC (1 - PCV)PNEUMOCOCCAL (1 - PCV) [facility]: 68-80-6704Iehkdkvbh for malignant neoplasm of colonHeartland Behavioral Health Services End: 36-03-2368DJTLQWJ TOPOGRAPHY PENTACAM OU (BOTH EYES)CORNEAL TOPOGRAPHY PENTACAM OU (BOTH EYES) OPHT Imaging Routine Combined forms of age-related cataract of both eyes 1 Occurrences starting 12/08/2022 until 05/31/2024 [facility] Work Phone: Comment on above:1 Occurrences starting 12/08/2022 until 05/31/2024 End: 30-96-4160IYA MACULA CIRRUS OU (BOTH EYES)OCT MACULA CIRRUS OU (BOTH EYES) OPHT Imaging Routine Combined forms of age-related cataract of both eyes 1 Occurrences starting 12/08/2022 until [facility] Work Phone: Comment on above:1 Occurrences starting 12/08/2022 until 05/31/2024SPINE INTERVENTION PROCEDURESPINE INTERVENTION PROCEDURE Procedures Routine Lumbosacral neuritis Ordered: 07/30/2024[facility] Work Phone: Comment on above:Ordered: 07/30/2024XR Shoulder - left 2 ViewsXR shoulder 2+ views left Imaging Routine Acute pain of both shoulders 11/28/2024 1:01 PM EDTNOTN HealthcareXR Shoulder - right 2 ViewsXR shoulder 2+ views right Imaging Routine Acute pain of both shoulders 11/28/2024 1:01 PM EDT [facility] Work Phone: [facility] Immunizations Immunization DateImmunizationNotesCare DnigwzunAkhomesb43-13-5753tnvgffhhv virus vaccine, unspecified formulationKenroymoises Lozano Work Phone: [phone]-TvdwlMemorial [facility] Convenient Vpjl28-42-5040 zoster vaccine recombinantWilly Kim 764-4925Dzctpk-AhyfcMemorial Health [facility]ient Lbps00-95-1235 pneumococcal (PCV20) vaccine, 20 valent (PREVNAR 20)Pacc 2 Work Phone: [facility] HospitalJaepwu03-76-4641quyllu vaccine recombinant Pacc 2 Work Phone: [facility] HospitalCxxmcx24-82-1327sruvamvfs virus vaccine, unspecified formulationPaGlobalPay [facility]11-15-2022influenza, injectable, quadrivalent, preservative freePacc 2 Work Phone: [facility] HospitalHtxmxp58-48-5572LUGO-UeN-9 (COVID-19) mRNAMUL.ORD!y10899Nnwbdjo WATERS [facility]10-26-2021SARS-CoV-2 (COVID-19) mRNA-1273 Frogdice [facility] HospitalComment on above:Result Comment: 2023-03-13: ZTX9464-13-6997BYYX-FsW-2 (COVID-19) mRNA-1273 Frogdice [facility]04-05-2021SARS-CoV-2 (COVID-19) mRNA-1273 Frogdice [facility]11-08-2018influenza virus vaccine, unspecified formulationPaGlobalPay [facility] Hospitalue11-08-2018influenza, injectable, quadrivalent, preservative freePacc 2 Work Phone: [facility] HospitalAbuamr03-69-7354welgops toxoid, reduced diphtheria toxoid, and acellular pertussis vaccine, adsorbedPacc 2 Work Phone: [facility] HospitalVzmfhn18-09-6553duredlscr virus vaccine, unspecified formulationPatricNoteworthy Medical Systems [facility] Hospitalue01-05-2017influenza, injectable, quadrivalent, contains preservativePacc 2 Work Phone: [facility] Payers DatePayer CategoryPayerPolicy [id number] Health [id number]-kzh [id number] [place] [employer] [id number]50.93796-93-3654Gqqotdp99-01-4000Vavbwvm Health JbuzvzokmC75[id number] 2.0.1.426652.3.579.[id number] 2.0.1.167488.3.579.2.85201-51-6996Cngibil65721880 2.840.1.221229.3.579.2.44946-18-2955Flkgclt74508125 2.0.1.515336.3.579.2.65287-17-3957Jqgeqyz4462091 2.16840.1.626651.3.579.2.10612-29-0596Ekudukr1757644 2.840.1.715016.3.579.2.85252-76-2117Bufblxn37254293 2.840.1.822444.3.579.2.94022-46-9931Fdynywk79626428 2.0.1.570684.3.579.2.54607-28-2748Kemcqlu54177730 2.0.1.688314.3.579.2.05324-96-5420Mdlkncl31010630 2..1.629608.3.579.2.48844-29-7400Nsszpcm10747861 2..1.744043.3.579.2.30471-06-8249Xgmylkh86834905 2.840.1.863291.3.579.2.64358-17-1086Zpopyug46304476 2.0.1.000940.3.579.2.87888-66-3283Btdynma88198129 2..1.949424.3.579.2.649392-25-1991Qixeyrg8417634 2.0.1.357678.3.579.2.428476-54-4094Lxkjiiw0460938 2..1.304540.3.579.2.661309-76-4182Cbxzekt6492743 2.840.1.658292.3.579.2.019613-98-9910Oydkyim22810003 2.840.1.192606.3.579.2.11954-02-4951Rvrgfdp20850952 2..1.841245.3.579.2.54196-80-5482Awdn-tny80499252696-01-1807Lieszxe [id number] 848m2092-120c-1p48-m8al-[id number] 85u81a34-3gm6-1a39-s5k9-m494f7z45343GdzwuseVEI Netwk [id number] jpu315pi-2jl6-601e-9m56-3msiq06p2392Tzincdm46479401 2.16.840.1.569565.3.579.2.531 Social History DateTypeDetailFacilityStart: 05-18-2022 End: 26-32-7021Tlaaghy smoking status NHISEx-smokerAultman Orrville Hospitaltart: 07-17-1986 End: 06-28-5922Twlqibg of tobacco useCurrent smokerAultman Orrville Hospitaltart: 07-17-1986 End: 89-61-0684Wxydujd of tobacco useCigarette SmokerAultman Orrville Hospitaltart: 05-18-2022 End: 05-73-1289Yndhlrbpuy smoked current (pack per day) - Qldlbgbz9Acohnaqcm ClinicStart: 05-18-2022 End: 88-81-4942Azaavwd use and exposureSmokeless tobacco non-userAultman Orrville Hospitaltart: 05-18-2022 End: 90-67-7667Ayhkgqq intakeCurrent drinker of alcohol (finding)[facility]: 00-62-8949Trh Assigned At BirthNot on fileAultman Orrville Hospitaltart: 05-08-2022 End: 11-75-9859Spfyptlk to SARS-CoV-2 (event)Not sureOhiohealth O'Bleness HospitalTobaveterans affairs medical center [facility] [place] Past, CigarettesNationwide Children'S HospitalTobacc smoking statusMartin Memorial Hospitaltart: 03-08-2023 End: 35-68-6421Lic Assigned At [facility]ertart: 10-07-4561Dtv Assigned At [facility] Hospitaltart: 12-29-2022 End: 39-83-5705Qwrwvfb intakeEx-drinker (finding)[facility]tart: 28-42-2086Elctdcv Comment5 drinks per week, sometimes moreMercy Health Allen Hospital Depression Screening Fhsrzmtgug2Zzxvescgn ClinicStart: 79-99-0920Tuiktwy smoking status NHISNever smoked tobaccoNOMS HealthcareStart: 09-12-2023 End: 02-82-3759Likqjoprv beverage intakeLifetime non-drinker (finding)[facility] HealthcareStart: 18-84-1700FvrVser (finding)[facility] Medical Equipment Procedure CodeEquipment CodeEquipment Original TextEquipment IdentifierDates [employer] Absor[employer] Iol [id number]: 81-12-4993Icajghf on above:Description: -1.41[place]orbing Iol +[id number] Start: 72-87-7641Eycvsqd on above:Description: -0.20 Functional Status XofgLdlskbxlrmYzbrhvYaqotxor47-86-0822Wuthdhkjve StatusN/AExec[facility]08-28-2023Functional StatusN/AExec[facility]04-24-2015Are you deaf, or do you have serious difficulty hearingYes 11/07/2014 2:33 PM EDT Ashley Macias LPN YesOhiohealth O'Bleness HospitalQrluwj61-63-0830Iln you blind, or do you have serious difficulty seeing, even when wearing glassesNo 11/07/2014 2:33 PM EDT Ashley Macias LPN [facility]04-24-2015Do you have serious difficulty walking or climbing stairsNo 11/07/2014 2:33 PM EDT Ashley Macias LPN [facility] 32-43-1598Al you have difficulty dressing or bathingYes 11/07/2014 2:33 PM EDT Ashley Macias LPN [facility] HospitalUsjoly91-11-7156Nhhoaps of a physical, mental, or emotional condition, do you have difficulty doing errands alone such as visiting a physician's office or shoppingYes 11/07/2014 2:33 PM EDT Ashley Macias LPN [facility] Mental Status XkniThyhvthsuiYzwytwXdkskawh53-35-3912Ivbhwfw of a physical, mental, or emotional condition, do you have serious difficulty concentrating, remembering, or making decisionsNo 11/07/2014 2:33 PM EDT Ashley Macias LPN [facility] Clinical Notes 05-18-2022 to 03-06-2025 Note Date & [id number] Hospital Discharge instructions Patient Education 03/06/2025 10:11:59 [...] medicines to help relieve symptoms, such as: Ecbg-uup-yzvrozz cold medicines. Cough suppressants. Coughing is a [...] and other clear broths. General instructions Take lzzu-dfw-apvyvvq and prescription medicines only as told by [...] and water are not available, use hand slicing machine feeder. Avoid touching your mouth, face, eyes, or [...] provider. Document Revised: 02/02/2022 Document Reviewed: 02/02/2022 [facility] Patient Education 2023 [employer]. Follow Up Care 03/06/2025 08:09:24 With:Edin ARCHULETA, INÉS Fontana, PED Address: [address] [place] [address] When: Unknown [facility] [...] to help relieve symptoms, such as: ??? Epog-okf-mlddyyu cold medicines. ??? Cough suppressants. Coughing is [...] other clear broths. General instructions ??? Take djjh-oes-zqkuiyl and prescription medicines only as told by [...] and water are not available, use hand slicing machine feeder. ??? Avoid touching your mouth, face, eyes, [...] a stiff neck. ? (more content not included)...[facility]07-30-2025 History of Present illness Narrative* Karla [...] eyes (OU): - 01/2023 - Dr. Schaffer ([facility]) - Discussed with Mr. Thacker outcome and continued need for spectacle correction for some tasks. His Rx was performed and available to him if he wishes. 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 documented in this encounterHeartland Behavioral Health [id number] NotePatient Education Materials Follows:Disease Insect Bite, Adult [...] an anaphylactic reaction may include: ? Feeling american indian policy specialist the face (flushed). This may include redness. [...] cold. General instructions ? Apply or take palk-dsm-tsgrooo and prescription medicine only as told by [...] and legs. This is especially importantin the early intervention specialist and evening. ? Use insect repellent. The best insect repellents contain DEET, picaridin, oil of lemon eucalyptus(OLE), or [id number]. ? Consider spraying your clothing with a [...] symptoms will go away. (more content not included)...[id number] History of Present illness Narrative* Felicitas Rush [...] Depression: Not at risk (07/29/2024) Received from [facility] PHQ-2 PHQ-2 score: 0 REVIEW OF [...] 12/02/2024 3:25 PM EDT documented in this encounterHeartland Behavioral Health [id number] Hospital Discharge instructions Follow Up Care 11/05/2024 09:10:01 With:Edin ARCHULETA, INÉS Fontana, PED Address: [address] [place] [address] [address] [place] [address] [phone] When:1 year Comments:annual wellnessTo go instructions:I recommend setting a goal to get back to being in the 180s------*When you see providers outside of [facility], please request that they send office [...] [facility] [place] 02-28-2025 Telephone encounter Note* Telephone Encounter - Doris Garcia LPN - 09/13/2024 12:22 PM EST Grow[employer] message sent to patient with Procedure Instructions. [facility]02-28-2025 Miscellaneous Notes* Telephone Encounter - Doris Garcia LPN - 09/13/2024 12:22 PM EST [employer] message sent to patient with Procedure Instructions. documented in this encounterOhiohealth O'[facility]01-20-2025 Telephone encounter Note * Telephone Encounter - Doris Garcia LPN - 08/05/2024 5:24 PM EST Called patient to review his procedure instructions for 08/15/24. Patient stated he had this procedure rescheduled for some time in September, but chart not updated as of yet. [facility]01-20-2025 Miscellaneous Notes* Telephone Encounter - Doris Garcia LPN - 08/05/2024 5:24 PM EST Called patient to review his procedure instructions for 08/15/24. Patient stated he had this procedure rescheduled for some time in September, but chart not updated as of yet. documented in this encounterOhiohealth O'Bleness Hospital01-17-2025 Telephone encounter Note * Telephone Encounter - Doris Garcia LPN - 08/02/2024 4:35 PM EST [facility] sent to patient for Procedure Instructions. [facility]01-17-2025 Miscellaneous Notes* Telephone Encounter - Doris Garcia LPN - 08/02/2024 4:35 PM EST TicketBiscuitt message sent to patient for Procedure Instructions. documented in this encounterOhiohealth O'Bleness Hospital01-13-2025 NoteHNO ID: [id number] Author: BARBER SNOW, DO Service: ? Author Type: Physician Type: Progress Notes Filed: 08/10/2024 22:52 Note Text: [facility] Neurological [facility] Spine Health - Medical Spine Established [...] and hemp - minimal relief Therapies PT: [facility], Anders Baker PT, frances 05/30 - [...] radiation to right anterio (more content not included)...[facility]01-13-2025 History of Present illness Narrative* Barber Snow, DO - 07/29/2024 4:34 PM EST Images from the original note were not included. [facility] Neurological 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 09/24/2016 XR lumbosacral spine, [facility]: There is straightening of the normal [...] 2024 TIME: 4:39 PM documented in this encounterOhiohealth O'Bleness [facility]11-20-2024 NoteUT Cardiology - [facility] Subjective Darius Thacker is a 64 [...] seen in follow up on CAD, LAD PA treated by stenting (02/2015) and systolic heart [...] MG) BY MOUTH IN (more content not included)...[facility]11-18-2024 Hospital Discharge instructions Patient Education 06/03/2024 11:24:12 [...] treatment? Where to find more information The [employer] Society: www.cancer.org [employer] U[employer] Association: www.auanet.org Contact a health care [...] provider. Document Revised: 12/27/2021 Document Reviewed: 12/27/2021 [employer] Patient Education 2023 [employer]. Follow Up Care 03/13/2023 16:02:25 With:ORA MILLER, Francois George, URL Address: [facility] [address], [place] [address] [phone] When: only if needed [facility] of [...] Where to find more information ??? The [employer] Cancer Society: www.cancer.org ??? [employer] Urological Association: www.auanet.org Contact a health care [...] men. 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 paperwork instead of faxing [facility] Health [id number] Miscellaneous Notes* Telephone Encounter - Ana Rosenbaum - 04/16/2024 3:46 PM EDT Pt drops by to get paperwork signed says it has been back and forth since February, form scannedin and in om bin Pt asks to be called to supervisor picking crew paperwork instead of faxing documented in this encounterHeartland Behavioral Health [id number] NotePatient: Darius Thacker Procedure Information Date/Time: 02/28/24 0830 Procedure: Coronary angiography - PC APPROVED Lt COrs Location: [facility] ATTENDANT 3 / [facility] (Cath) Providers: Camila Sen [...] products. Plan discussed with attending. [facility]UnSal[facility]24 Note Continue GDMT- ASA, toprol, crestor D/W Dr Sen regarding possible cardiac cathUnSalem City Hospital07-09-2024 NoteHypertension is unchanged, boarderline labile with noted orthostatic changes Continue current medications.[facility]07-09-2024 Note Worsening symptoms of Unstable angina with [...] stroke, . And he voiced understanding and agreementUnSalem City Hospital 01-23-2024 NotePatient here for 6 mo [...] headaches. All other systems reviewed and are negative.[facility] 01-23-2024 NoteUTP CARDIOLOGY PROGRESS NOTE HPI: Darius [...] that he doesn't walk anymore. CAD, LAD PA treated by stenting (02/2015) and systolic heart [...] seen in follow up on CAD, LAD PA treated by stenting (02/2015) and systolic heart [...] Nose: Nose normal. Mouth/Thr (more content not included)...[facility] 01-23-2024 NoteNYHC II-III currently euvolemic without exacerbation- he admits to not drinking enough fluid on a daily basis Continue GDMT- ASA, crestor, farxiga, aldactone and toprol Diuretic therapy- dc'd r/t hypotension/syncope Monitor daily weights, I&O, fluid restriction 1.5-2L/day, renal function and electrolytes-[facility]04-10-2024 Miscellaneous Notes* Addendum Note - Nicole Ryan OD - 10/25/2023 3:14 PM EDTAddended by: NICOLE RYAN on: 10/25/2023 03:14 PM Modules accepted: Orders documented in this encounterOhiohealth O'Bleness Hospital04-10-2024 Instructions* Patient Instructions* Nicole Ryan OD [...] will blur vision more. documented in this encounterOhiohealth O'Bleness Hospital04-10-2024 NoteHNO ID: [id number] Author: NICOLE RYAN OD Service: ? Author Type: THERAPIST RADIATION Type: Progress Notes Filed: 10/25/2023 15:09 Note Text: ASSESSMENT/PLAN: 1. Keratoconjunctivitis sicca of both eyes not specified as Sjogren's - ICD9: 370.33, ICD10: H16.223 (primary diagnosis) 2. 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 of both eyes - ICD9: 373.00, ICD10: H02.88A, H02.88B Pt ed Plan maintenance for halfway carte Start Warm/Hot compresses once a day [...] with Dr Breen October 25, 2023 2:57 [facility]04-10-2024 History of Present illness Narrative * Nicole Ryan, OD - 10/25/2023 2:57 PM EDT ASSESSMENT/PLAN: 1. Keratoconjunctivitis sicca of both eyes not specified as Sjogren's - ICD9: 370.33, ICD10: H16.223 (primary diagnosis) 2. 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 * Telephone Encounter - Alesha Marcos RN - 09/20/2023 3:52 PM EST Hi, Please schedule the following appointment. Patient: Darius Thacker Provider:Dr. Barber Snow Date: 10/02/2023 Time: 430 PM [facility] schedule Visit Type: Virtual (visualized on screen) Established Visit follow up Imaging needed prior to schedule: No Patient is aware: Yes Thank you! Alesha Marcos RN Forwarded to [place] Clerical scheduling. * Telephone Encounter - Alesha Marcos RN - 09/20/2023 2:26 PM EST Made a temporary hold on 10/01 at 430 PM for VV. It is on the [facility] schedule. documented in this encounterOhiohealth O'Bleness Hospital12-12-2023 NoteUT Cardiology - [facility] Subjective Darius Thacker is a 63 [...] seen in follow up on CAD, LAD PA treated by stenting (02/2015) and systolic heart [...] mouth at bedtime., Di (more content not included)...[facility] 06-01-2023 History of Present illness Narrative* Nicole [...] 01, 2023 2:00 PM documented in this encounterOhiohealth O'Bleness Hospital08-28-2023 Hospital Discharge instructions Patient Education 03/13/2023 [...] provider gives to you. In general: Take kzii-tlp-zboxsge and prescription medicines only as told by [...] provider. Document Revised: 12/28/2020 Document Reviewed: 12/28/2020 [employer] Patient Education 2022 Fabkids. Follow Up Care 11/15/2022 12:05:11 With:ORA MILLER, Francois George, URL Address: [facility] [address] , [place] [address]- [phone] When:Within 1 Year(s) Comments:Renal US [facility] [...] 08, 2023 11:08 AM documented in this encounterOhiohealth O'Bleness Hospital06-30-2023 Miscellaneous Notes* Telephone Encounter - Nell [...] Please review and advise. documented in this encounterOhiohealth O'Bleness Hospital06-15-2023 History of Present illness Narrative* SARTHAK Aguilar - 12/29/2022 2:08 PM EDT CONFIRM AIM INTERMEDIATE DISTANCE LEFT EYE. AIM -1.50 LEFT EYE. SARTHAK Aguilar documented in this encounterOhiohealth O'Bleness Hospital06-15-2023 Instructions* Patient Instructions* Sheeba Webster APRN.LANDSCAPE CREW LEADER - 12/29/2022 1:50 PM EDT PATIENT PREOPERATIVE INSTRUCTIONS Negra Schaffer V, MD has scheduled you for your procedure at this surgery center: [facility]: [phone] --[phone] [facility] [place] [address]. Please read below carefully for your personalized [...] Procedures: - YOU MUST HAVE A RESPONSIBLE PTA TAKE YOU HOME. A COLLAR TURNER OR SPORTS DIRECTOR CANNOT BE MADE A RESPONSIBLE PTA. - We recommend that a responsible person [...] Advance Directive, please fax a copy to [phone] or email to for it to be [...] day. Sheeba Webster APRN.MAXIMILIAN documented in this encounterOhiohealth O'Bleness Hospital06-15-2023 History and physical note * Sheeba [...] (FLONASE) 50 mcg/actuation nasal spray Use 1 Itasca in each nostril as needed. Yes No medication comments found. CURRENT ALLERGIES: ALLERGIES No Known Allergies COVID VACCINATION STATUS: Fully vaccinated REVIEW OF SYSTEMS: PAIN ASSESSMENT: General: No weight loss, malaise or fevers. Neuro: No history of TIA's, stroke, MOBILE SALES CONSULTANT tumor, impaired sensorium, hemiplegia, paraplegia or quadraplegia. No neurological symptoms or problems. Positive [place] bilateral hearing aids Respiratory: Positive for Tobacco [...] Generalized ischemic myocardial dysfunction Assessment: history of PA s/p PTCA in 2014 on ASA follows [...] 2022 TIME: 1:36 PM documented in this encounterOhiohealth O'Bleness Hospital06-02-2023 Miscellaneous Notes* Telephone Encounter - Kateryna Jordancharissavitaliy [facility] - 12/16/2022 11:30 AM EDT Images from the original note were not included. Called and spoke to patient and scheduled pre op appointments for 12/29. I advised him that we will contact Dr Breen' office and set up the post op appointments (1 day and 1 week). Asked if it was okay that we send him a [employer] message with those appointments. He confirmed DDNhart was okay. Add on 01/11 per - call to schedule Received: Yesterday Marina Canales P Ln Opht Surg Manager Research And Development CHART MADE AND FILED IN [place] PATIENT SCHEDULED FOR SX OS ONLY 01/11/23 - ADD PER MYC OK: --NO CALL TO SCHEDULE PH #: VERIFIED SR/CASE MSG DONE: YES NOTES: POST OPS W/: DR STEFF Schaffer V, MD P Ln Opht Surg Manager Research And Development Left eye only Comanage with Dr Breen [...] and surgery - [facility] documented in this encounterOhiohealth O'Bleness Hospital06-01-2023 Miscellaneous Notes* Addendum Note - Marina Canales - 12/15/2022 2:17 PM EDTAddended by: MARINA SALGADO on: 12/15/2022 02:17 PM Modules accepted: Orders documented in this encounterOhiohealth O'Bleness Hospital06-01-2023 History of Present illness Narrative* Negra [...] and surgery - Comanage with Dr Breen; [facility] POD #1 Cataract Presurgical Documentation Cataract: [...] patient was offered a surgery/procedure at a [facility] facility. The surgeon/proceduralist and patient have [...] 15, 2022 12:29 PM documented in this encounterOhiohealth O'Bleness Hospital04-17-2023 History of Present illness Narrative* Barber Snow, DO - 10/31/2022 4:13 PM EDT Images from the original note were not included. [facility] Neurological [facility] [facility] Health - Medical Spine Established Patient DISTANCE HEALTH VISIT This Team Access Model visit is a virtual encounter. It required patient- provider interaction for the medical decision making as documented below. I have communicated my name and active licensure. The patient's identity and physical location wereverified at the time of this visit. Darius Thakcer has consented to this telephone or audio/video encounter. Persons Present: patient SUBJECTIVE HISTORY OF PRESENT ILLNESS: Dairus Thacker is a 62 year old male [...] Current Treatment: Medications None currently Therapies PT: [facility], Anders Baker PT, frances 05/30 - [...] surgery: -2005 Lumbar discectomy L5-S1 Dr. 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 (Patient not [...] MRI lumbar spine with and without contrast, [facility]: Comparison is made to the March [...] his lateral recess. 09/24/2016 XR lumbosacral spine, [facility]: There is straightening of the normal [...] 2022 TIME: 4:13 PM documented in this encounterOhiohealth O'Bleness Hospital03-28-2023 Miscellaneous Notes* Telephone Encounter - Evonne Coronado RN - 10/11/2022 1:59 PM EDT Tried to reach patient for post-injection phone call. Left office number for patient to call back. [employer]t message/questionairre sent regarding post-injection. documented in this encounterOhiohealth O'Bleness Hospital03-14-2023 Miscellaneous Notes* Telephone Encounter - Abner [...] require COVID-19 testing before undergoing outpatient procedure -[employer] is needed to drive patient home. -NPO [...] Antibiotics?: No Diabetic: No Patient given number [phone], spine injections schedulers, if there is any [...] AND POST INJECTION INSTRUCTIONS documented in this encounterOhiohealth O'Bleness Hospital01-25-2023 Miscellaneous Notes* Allied Health - [place]io [...] 10, 2022 3:17 PM documented in this encounterOhiohealth O'Bleness Hospital01-09-2023 History of Present illness Narrative* Barber Penn Pageodilon, DO - 07/25/2022 4:25 PM EST Images from the original note were not included. 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 (Patient not [...] MRI lumbar spine with and without contrast, [facility]: Comparison is made to the March [...] his lateral recess. 09/24/2016 XR lumbosacral spine, [facility]: There is straightening of the normal [...] 2022 TIME: 4:26 PM documented in this encounterOhiohealth O'Bleness Hospital01-06-2023 Miscellaneous Notes* Telephone Encounter - Alesha Marcos RN - 07/22/2022 1:47 PM EST Spoke to Em [facility] she states needs Verbal permission from patient to be able to speak to and can discuss claim with her. Has told her this. It is an [place] procession issue. Called spouse advised her that she needs to have patient call Em and give her verbal permission she canthen discuss claim with her. She verbalized understanding. * Telephone Encounter - Alesha Marcos RN - 07/22/2022 1:38 PM EST Left message on voicemail for Em [facility] to call office back. * Telephone Encounter - Varinder Bishop - 07/21/2022 4:24 PM EST Pt called, states they received a call from their insurance (ACE) and the diagnosis code that we gave [...] [facility] is seeing, [facility] [phone] Please contact patient to advise of any details/further questions. Varinder Monet Pss documented in this encounterOhiohealth O'Bleness Hospital11-02-2022 History of Present illness Narrative* Barber Snow DO - 05/18/2022 2:02 PM EDT Images from the original note were not included. 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 desvenlafaxine ER [...] MRI lumbar spine with and without contrast, [facility]: Comparison is made to the March [...] his lateral recess. 09/24/2016 XR lumbosacral spine, [facility]: There is straightening of the normal [...] Therapy/Rehabilitation: -PT referral placed for lumbar spine. -[place] trained therapist list provided for local options, will likely go to [facility]. -Activities and exercise as tolerated. 3) Pharmacological [...] 2022 TIME: 2:11 PM documented in this encounterOhiohealth O'Bleness HospitalEvaluation + Plan note No data available for this section [facility] Future Appointments Appointment Date:03/08/2024 09:45:00 AM Scheduled Provider:Francois PAYAN MD Location:[facility] Appointment Type:URO Office Visit Future Scheduled Tests Radiology* US Renal 03/13/23 [facility] evaluation + Plan note Future Appointments Appointment Date:04/22/2024 12:30:00 PM Scheduled Provider:Francois PAYAN MD [facility] Appointment Type:URO Office Visit [facility] evaluation + Plan note Future Appointments Appointment Date:06/03/2024 10:30:00 AM Scheduled Provider:Francois PAYAN MD Location:[facility] Appointment Type:URO Office Visit [facility] Evaluation + Plan note Future Appointments Appointment Date:12/08/2025 01:00:00 PM Scheduled Provider:Anders Jesus DO Location:[facility] Appointment Type:FM [facility] [place] evaluation note* Diagnosis Acute right-sided low back pain with right-sided sciatica- Primary Lumbosacral radiculitis Thoracic or lumbosacral neuritis or radiculitis, unspecified documented in this encounter [facility]* Diagnosis Chronic right-sided low back pain with right-sided sciatica- Primary Lumbosacral radiculitis Thoracic or lumbosacral neuritis or radiculitis, unspecified Radiculopathy of lumbar region Thoracic or lumbosacral neuritis or radiculitis, unspecified documented in this encounter [facility] noteNo assessment information availableOhiohealth [facility] Work Phone: Evalulmhvk note* Diagnosis Chronic right-sided low back pain with right-sided sciatica- Primary Radiculopathy of lumbar region Thoracic or lumbosacral neuritis or radiculitis, unspecified documented in this encounter [facility]* Diagnosis Combined forms of age-related cataract of both eyes- Primary Other and combined forms of senile cataract Myopia with astigmatism and presbyopia, bilateral Combined forms of age-related cataract of both eyes Other and combined forms of senile cataract documented in this encounter [facility]* Diagnosis Pre-op evaluation- Primary Preoperative examination, [...] of senile cataract documented in this encounter [facility]* Diagnosis Combined forms of age-related cataract of both eyes Other and combined forms of senile cataract Combined forms of age-related cataract of both eyes Other and combined forms of senile cataract documented in this encounter [facility]* Diagnosis S/P cataract extraction and insertion of intraocular lens, left- Primary documented in this encounter [facility]* Diagnosis Chronic right-sided low back pain with right-sided sciatica Radiculopathy of lumbar region Thoracic or lumbosacral neuritis or radiculitis, unspecified Bilateral posterior capsular opacification- Primary After-cataract, unspecified documented in this encounter [facility]* Diagnosis Left posterior capsular opacification- Primary After-cataract, unspecified Pseudophakia of both eyes Lens replaced by other means documented in this encounter [facility]Eval[facility] note* Diagnosis Keratoconjunctivitis sicca of both eyes not specified as Sjogren's- Primary Keratoconjunctivitis sicca, not specified as Sjogren's 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 of both eyes Pinguecula of left eye Pinguecula Pterygium, right Pseudophakia of both eyes Lens replaced by other means History of YAG laser capsulotomy of lens, left documented in this encounter [facility] note* Diagnosis Pre-op evaluation- Primary Preoperative examination, [...] or radiculitis, unspecified [facility] Diagnosis Pre-op evaluation- Primary Preoperative examination, [...] or radiculitis, unspecified [facility] Diagnosis Primary osteoarthritis of both shoulders- Primary Acute pain of both shoulders documented in this encounter [facility]* Diagnosis Dry eyes- Primary Unspecified tear film insufficiency Blepharitis of upper and lower eyelids of both eyes, unspecified type Pseudophakia Lens replaced by other means documented in this encounter [facility] Discharge instructions No data available for this section [facility] data available for this section [facility] Summary Purpose Family History No Family [...] EVALUATION HIGH COMPLEX 45 MINS [address] Snow, [address] [place] [address] [facility] [place] [address] Referral IDStatusReasonStelk city DateExpiration DateVisits RequestedVisits [id number] Review Auto-Generated Referral [id number] / ProceduresReferred By ContactReferred To ContactMR IMAGING Diagnoses Chronic right-sided low back pain with right-sided sciatica Radiculopathy of lumbar region Procedures MRI LUMBAR SPINE WO IVCON MRI SPINAL CANAL LUMBAR W/O CONTRAST MATERIAL Barber Snow, [address] [place] [address] Mr Imaging Referral IDStatusReasonIrving DateExpiration DateVisits RequestedVisits [id number] Auto-Generated Referral [id number] / ProceduresReferred By ContactReferred To ContactMR IMAGING Diagnoses Chronic right-sided low back pain with right-sided sciatica Radiculopathy of lumbar region Procedures MRI LUMBAR SPINE WO IVCON MRI SPINAL CANAL LUMBAR W/O CONTRAST MATERIAL Barber Snow, [address] [id number] Mr Imaging [place] [address] Chief Complaint and Reason for Visit Chief Complaint Brant only; back Additional Source Comments (unrecognized sect ion and content) No Status Records FoundNo Status Records FoundNo Status Records FoundNo Status Records FoundNo Status Records FoundNo Status Records FoundNo Status Records FoundNo Status Records FoundNo Status Records Found INFORMATION SOURCE (unrecogn ized section and content) DATE CREATED AUTHOR 10/23/2018 [facility] DATE CREATED AUTHOR AUTHOR'S ORGANIZ ATION 10/19/2022 [facility] DATE CREATED AUTHOR AUTHOR'S ORGANIZ ATION 11/12/2022 [facility] DATE CREATED AUTHOR AUTHOR'S ORGANIZ ATION 06/08/2024 [facility] DATE CREATED AUTHOR AUTHOR'S ORGANIZ ATION 09/15/2024 [facility] DATE CREATED AUTHOR AUTHOR'S ORGANIZ ATION 01/26/2025 [facility] DATE CREATED AUTHOR AUTHOR'S ORGANIZ ATION 02/04/2025 [facility] DATE CREATED AUTHOR AUTHOR'S ORGANIZ ATION 02/14/2025 [facility] DATE CREATED AUTHOR AUTHOR'S ORGANIZ ATION 03/18/2025 [facility] Source Comments (unrecognize d section and content) In the event this informatio n is protected by the Federal Confidentiality of Alcohol and Drug Abuse Patient Records regulations: The Federal rules restrict any use of the information to criminally investigate or prosecute any alcohol or drug abuse patient.[facility] the event this information is protected by the Federal Confidentiality of Alcohol and Drug Abuse Patient Records regulations: The Federal rules restrict any use of the information to criminally investigate or prosecute any alcohol or drug abuse patient.[facility] the event this information is protected by the Federal Confidentiality of Alcohol and Drug Abuse Patient Records regulations: The Federal rules restrict any use of the information to criminally investigate or prosecute any alcohol or drug abuse patient.[facility] the event this information is protected by the Federal Confidentiality of Alcohol and Drug Abuse Patient Records regulations: The Federal rules restrict any use of the information to criminally investigate or prosecute any alcohol or drug abuse patient.[facility] Hospital[facility] the event this information is protected by the Federal Confidentiality of Alcohol and Drug Abuse Patient Records regulations: The Federal rules restrict any use of the information to criminally investigate or prosecute any alcohol or drug abuse patient.[facility] Hospital[facility] the event this information is protected by the Federal Confidentiality of Alcohol and Drug Abuse Patient Records regulations: The Federal rules restrict any use of the information to criminally investigate or prosecute any alcohol or drug abuse patient.[facility] Hospital[facility] the event this information is protected by the Federal Confidentiality of Alcohol and Drug Abuse Patient Records regulations: The Federal rules restrict any use of the information to criminally investigate or prosecute any alcohol or drug abuse patient.[facility] Hospital[facility] the event this information is protected by the Federal Confidentiality of Alcohol and Drug Abuse Patient Records regulations: The Federal rules restrict any use of the information to criminally investigate or prosecute any alcohol or drug abuse patient.[facility] HospitalIn the event this information is protected by the Federal Confidentiality of Alcohol and Drug Abuse Patient Records regulations: The Federal rules restrict any use of the information to criminally investigate or prosecute any alcohol or drug abuse patient.[facility] HospitalIn the event this information is protected by the Federal Confidentiality of Alcohol and Drug Abuse Patient Records regulations: The Federal rules restrict any use of the information to criminally investigate or prosecute any alcohol or drug abuse patient.[facility] Hospital[facility] the event this information is protected by the Federal Confidentiality of Alcohol and Drug Abuse Patient Records regulations: The Federal rules restrict any use of the information to criminally investigate or prosecute any alcohol or drug abuse patient.[facility] HospitalIn the event this information is protected by the Federal Confidentiality of Alcohol and Drug Abuse Patient Records regulations: The Federal rules restrict any use of the information to criminally investigate or prosecute any alcohol or drug abuse patient.[facility] HospitalIn the event this information is protected by the Federal Confidentiality of Alcohol and Drug Abuse Patient Records regulations: The Federal rules restrict any use of the information to criminally investigate or prosecute any alcohol or drug abuse patient.[facility] HospitalIn the event this information is protected by the Federal Confidentiality of Alcohol and Drug Abuse Patient Records regulations: The Federal rules restrict any use of the information to criminally investigate or prosecute any alcohol or drug abuse patient.[facility] HospitalIn the event this information is protected by the Federal Confidentiality of Alcohol and Drug Abuse Patient Records regulations: The Federal rules restrict any use of the information to criminally investigate or prosecute any alcohol or drug abuse patient.[facility] HospitalIn the event this information is protected by the Federal Confidentiality of Alcohol and Drug Abuse Patient Records regulations: The Federal rules restrict any use of the information to criminally investigate or prosecute any alcohol or drug abuse patient.[facility] HospitalIn the event this information is protected by the Federal Confidentiality of Alcohol and Drug Abuse Patient Records regulations: The Federal rules restrict any use of the information to criminally investigate or prosecute any alcohol or drug abuse patient.[facility] HospitalIn the event this information is protected by the Federal Confidentiality of Alcohol and Drug Abuse Patient Records regulations: The Federal rules restrict any use of the information to criminally investigate or prosecute any alcohol or drug abuse patient.[facility] HospitalIn the event this information is protected by the Federal Confidentiality of Alcohol and Drug Abuse Patient Records regulations: The Federal rules restrict any use of the information to criminally investigate or prosecute any alcohol or drug abuse patient.[facility] HospitalIn the event this information is protected by the Federal Confidentiality of Alcohol and Drug Abuse Patient Records regulations: The Federal rules restrict any use of the information to criminally investigate or prosecute any alcohol or drug abuse patient.[facility] HospitalIn the event this information is protected by the Federal Confidentiality of Alcohol and Drug Abuse Patient Records regulations: The Federal rules restrict any use of the information to criminally investigate or prosecute any alcohol or drug abuse patient.[facility] Reason for Visit (unrecogniz ed section and content) ReasonCommentsNew PatientLower back pain down to rt ankleReasonCommentsOrders ReasonCommentsLeg PainReasonCommentsPreparations For ProceduresPre-injection callReasonCommentspost injection follow upReasonCommentsLow Back PainReason CommentsCataract EvaluationReasonCommentsSchedule SurgeryReasonComments Anesthesia ConsultLeft eye cataractReasonCommentsPre-Op ExamReasonOnset Date CommentsRefill [id number]/13/2023ReasonCommentsrefraction before surgerySpecialty Diagnoses / ProceduresReferred By ContactReferred To ContactASC [facility] Diagnoses Combined forms of age-related cataract of both eyes Myopia with astigmatism and presbyopia, bilateral Procedures XCAPSL CTRC RMVL INSJ IO LENS PROSTH W/O ECP OPH BMTRY PRTL COHER INTRFRMTRY IO LENS PWR DELMIS PHACOEMULSIFICATION CATARACT IMPLANT INTRAOCULAR LENS W/O ENDOSCOPIC CYCLOPHOTOCOAGULATION OPHTHALMIC BIOMETRY BY PARTIAL COHERENCE INTERFEROMETRY W/INTRAOCULAR LENS POWER CALCULATION [facility] [address] [place] [address] Referral IDStatusReasonStart DateExpiration DateVisits RequestedVisits [id number] / ProceduresReferred By ContactReferred To ContactMR IMAGING Diagnoses Chronic right-sided low back pain with right-sided sciatica Radiculopathy of lumbar region Procedures MRI LUMBAR SPINE WO IVCON MRI SPINAL CANAL LUMBAR W/O CONTRAST MATERIAL Barber Snow, DO [address] [place] [address] Mr Imaging [place] [address] Referral IDStatusReasonStelk city DateExpiration DateVisits RequestedVisits [id number] Auto-Generated Referral /[id number] Capsule Opacification EvaluationReason CommentsForeign Body SensationReasonOnset DateCommentsLetter for School/Work 4ReasonCommentsPreperations for ProcedureMychartReasonComments Preperations for Procedure CallReasonCommentsPreperations for ProcedureMychart ReasonCommentsOsteoarthritisReasonCommentsFollow-up Care Teams (unrecognized sec tion and content) Team MemberRelationshipSpecialtyStart DateEnd Date Maria D Petersen [facility] - [facility]02/14/14Team MemberRelationshipSpecialtyStart DateEnd Date Maria D Petersen PCP - GeneralFamily Medicine02/14/14Team MemberRelationshipSpecialtyStart DateEnd Date Maria D Petersen PCP - GeneralFamily Medicine02/14/14Team MemberRelationshipSpecialtyStart DateEnd Date Maria D Petersen PCP - GeneralFamily Medicine02/14/14Team MemberRelationshipSpecialtyStart DateEnd Date Maria D Petersen [facility] - [facility]02/14/14 Team Status: Active Member Role Status [...] Date [facility] D Petersen PA-C [facility] - [facility]14/14Team MemberRelationshipSpecialtyStart DateEnd Date Maria D Petersen PA-C PCP - [facility]02/14/14Team MemberRelationshipSpecialtyStart DateEnd Date Maria D Petersen PA-C PCP - [facility]02/14/14Team MemberRelationshipSpecialtyStart DateEnd Date Maria D Petersen PA [address] [place] [address] [place] [address] [facility] - [facility]23/22Team MemberRelationshipSpecialtyStart DateEnd Date Maria D Petersen PA-C PCP - [facility]02/14/14Team MemberRelationshipSpecialtyStart DateEnd Date Maria D Petersen PA-C PCP - [facility] Medicine02/14/14Team MemberRelationshipSpecialtyStart DateEnd Date Maria D Petersen PA-C PCP - [facility]mily [facility]02/14/14Team MemberRelationshipSpecialtyStart DateEnd Date Maria D Petersen PA-C [facility]/14/14Team MemberRelationshipSpecialtyStart DateEnd Date Maria D Petersen PA [address] [place] [address] PCP - [facility]12/23/22Team MemberRelationshipSpecialtyStart DateEnd Date Claudia Gonzalez MD [address] [place] [address] PCP - [facility]12/06/24 Maria D Petersen PA [address] [place] [address] [facility]miF[facility]12/06/24Te MemberRelationshipSpecialtyStart DateEnd Date Claudia Gonzalez MD [address] [place] [address] [facility]12/06/24 Maria D Petersen PA [address] [place] [address] [facility]St[facility]12/06/24 Goals (unrecognized section and content) Goals [...] BE BASED ON THE PRIMARY CLINICAL RECORDS. [employer] [facility]. provides no warranty or guarantee of the accuracy or completeness of information in this document.
== END 2025-07-16 13:52 | disposition home or self-care (01) ==
LOC: CARD 13:51
PROVIDERS: Visit Provider Nurse Practitioner Family
DX: I50.22 Chronic systolic (congestive) heart failure (principal)
CPT/HCPCS: 93306; 93356